=== PATIENT | female | born 1955 | race Caucasian/White ===

== ENCOUNTER → 2016-09-22 | Outpatient (CLI) | payer OTHER ==
[~2016-09-22] MED LIST: CLOP1TAB15 PO; DULO60CA44 PO; LORA-741 PO; LPR100 PO; METF-384 PO; ROSU40TA PO; SITA1TAB27 PO; TRIATAB3 PO; WARF6TAB5 PO
[2016-09-22 09:57] LABS: BLOOD UREA NITROGEN 17 mg/dl (7-18); BUN/CREATININE RATIO 13.4 (10-20); CALCIUM 9.3 mg/dl (8.5-10.1); CARBON DIOXIDE 26 mmol/L (21-32); CHLORIDE 107 mmol/L (98-107); CHOLESTEROL 117 mg/dl (0-200); GLUCOSE 169 mg/dl (70-99); POTASSIUM 4.7 mmol/L (3.5-5.1); SODIUM 142 mmol/L (136-145)
[2016-09-22 10:01] LABS: CHOLESTEROL/HDL RATIO 4.3; HDL CHOLESTEROL 27 mg/dl; TRIGLYCERIDES 307 mg/dl (0-150); VERY LOW DENSITY LIPOPROT CALC 61 mg/dl
[2016-09-22 10:08] LABS: ESTIMATED AVERAGE GLUCOSE 186 mg/dl; HA1C FLAG Normal (Normal)
== END | disposition home or self-care (01) ==
LOC: C.LAB 07:52
PROVIDERS: ATTEND Internal Medicine
DX: E11.65 Type 2 diabetes mellitus with hyperglycemia (principal); I10 Essential (primary) hypertension; E78.5 Hyperlipidemia, unspecified; I25.10 Atherosclerotic heart disease of native coronary artery without angina pectoris

== ENCOUNTER → 2017-01-26 | Outpatient (CLI) | payer OTHER ==
[2017-01-26 09:50] LABS: BLOOD UREA NITROGEN 33 mg/dl (7-18); BUN/CREATININE RATIO 19.3 (10-20); CALCIUM 8.8 mg/dl (8.5-10.1); CARBON DIOXIDE 27 mmol/L (21-32); CHLORIDE 104 mmol/L (98-107); GLUCOSE 143 mg/dl (70-99); POTASSIUM 4.7 mmol/L (3.5-5.1); SODIUM 137 mmol/L (136-145)
[2017-01-26 09:54] LABS: CHOLESTEROL 134 mg/dl (0-200); CHOLESTEROL/HDL RATIO 4.6; HDL CHOLESTEROL 29 mg/dl; TRIGLYCERIDES 358 mg/dl (0-150); VERY LOW DENSITY LIPOPROT CALC 72 mg/dl
[2017-01-26 09:57] LABS: ESTIMATED AVERAGE GLUCOSE 169 mg/dl; HA1C FLAG Normal (Normal)
== END | disposition home or self-care (01) ==
LOC: C.LAB 08:06
PROVIDERS: ATTEND Internal Medicine
DX: I10 Essential (primary) hypertension (principal); E78.5 Hyperlipidemia, unspecified; E11.65 Type 2 diabetes mellitus with hyperglycemia

== ENCOUNTER 2018-11-19 15:27 | Inpatient (IN) ==
[2018-11-19] MEDS ORDERED: ALBUT/IPRATROP 3MG/0.5MG NEB 3 ML VIAL NEB STA (15:47)
[2018-11-19 16:01] LABS: Base Excess VBG 2.8 mEq/L; HCO3 VBG 28 mmol/L; PCO2 VBG 45 mmHg (38-50); PO2 VBG 25 mmHg; pH VBG 7.41 (7.36-7.41)
[2018-11-19 16:02] LABS: Oxygen Saturation VBG < 60.0 %
[2018-11-19 16:07] LABS: Basophils # (auto) 0.03 K/uL (0-0.2); Basophils % (auto) 0.3 %; Eosinophils # (auto) 0.02 K/uL (0-0.5); Eosinophils % (auto) 0.2 %; Hematocrit (blood only) 44.5 % (37-47); Hemoglobin 15.2 g/dL (12.0-16.0); Immature Granulocytes # (auto) 0.05 K/uL (0.00-0.02); Immature Granulocytes % (auto) 0.5 %; Lymphocytes # (auto) 1.66 K/uL (1.2-3.4); Lymphocytes % (auto) 15.5 %; Mean Corpuscular Hgb Conc 34.2 g/dL (32-36); Mean Corpuscular Volume 88.1 fL (80-100); Monocytes # (auto) 1.89 K/uL (0.11-0.59); Monocytes % (auto) 17.6 %; Neutrophils # (auto) 7.09 K/uL (1.4-6.5); Neutrophils % (auto) 65.9 %; Platelet Count 137 K/uL (130-400); RDW Coefficient of Variation 14.8 % (11.5-14.5); RDW Standard Deviation 47.2 fL (36.4-46.3); Red Blood Count 5.05 M/uL (4.2-5.4); White Blood Count 10.74 K/uL (4.8-10.8)
[2018-11-19 16:16] LABS: INR 1.1 (0.9-1.1)
--- NOTE | 2018-11-19 16:20 | XRay Report ---
XR chest 1V portable HISTORY: Atypical Chest Pain COMPARISON: Chest 05/16/2018. FINDINGS: Left-sided favor pacemaker. The heart is normal in size. No pleural effusions. No pneumotho rax. Mild interstitial and vascular thickening suggestive of mild congestive change. This remains unc hanged. IMPRESSION: No change in the mild pulmonary vascular congestion without overt edema. Electronically signed by: Dash Nolasco M.D. 11/19/2018 4:19 PM
[2018-11-19] MEDS ORDERED: ONDANSETRON INJ 2 MG/ML 2 ML VIAL IV STA (16:22)
[2018-11-19 16:26] LABS: Albumin Level 3.3 gm/dl (3.4-5.0); BUN Creatinine Ratio 10.7 (10-20); Calcium 8.8 mg/dl (8.5-10.1); Creatinine Clr Calc Pharmacy 50.9 ml/min; Est GFR (African American) 53.5; Est GFR (Non-African American) 46.2; Magnesium 1.5 mg/dl (1.8-2.4); Potassium 3.6 mmol/L (3.5-5.1)
[2018-11-19 16:31] LABS: Albumin Globulin Ratio 0.8 (0.9-2); Bilirubin,Total 0.6 mg/dl (0.2-1); Phosphorus 2.7 mg/dl (2.5-4.9); Total Protein 7.3 gm/dl (6.4-8.2); Troponin I 0.017 ng/ml (0-0.045)
[2018-11-19] MEDS ORDERED: ALBUT/IPRATROP 3MG/0.5MG NEB 3 ML VIAL NEB ONE (16:58)
[2018-11-19] MEDS ORDERED: SODIUM CHLORIDE 0.9% 1000ML 500 ML IV ONE (16:58)
[2018-11-19] MEDS ORDERED: methylPREDNISolone 125 MG/2 ML VIAL IV STA (16:58)
[2018-11-19] MEDS ORDERED: DOXYCYCLINE HYCLATE 100 MG CAP PO STA (16:58)
[2018-11-19] MEDS: MAGNESIUM SULFATE / D5W 1 GM/100 ML BAG IV SCH ×2 (17:03→17:09)
--- NOTE | 2018-11-19 17:12 | History & Physical Report ---
Date of Service November 19, 2018 Assessment & Plan (1) COPD (chronic obstructive pulmonary disease): - Admit to med surg with tele - Solu-Medrol 60 mg Q8H, Xopenex nebs QID and Q2H prn, supplemental O2, Mucinex, sputum culture - Continue home spiriva inh 2 puff daily - No leukocytosis, afebrile - Patient follows with PCP Dr. Clayton as an outpatient, does not follow formally with pulm. (2) HTN (hypertension): - Patient did not receive morning medications: continue metoprolol tartrate 100 mg BID, Imdur 30 mg QAM, amlodipine 10 mg QAM - will order metoprolol and amlodipine to be given now. - IV hydralazine prn. Consider switch to home dosing of 10 mg PO TID tomorrow. (3) HLD (hyperlipidemia): - Cont rosuvastatin (4) Hx of non-ST elevation myocardial infarction (NSTEMI): (5) PAD (peripheral artery disease): (6) Paroxysmal SVT (supraventricular tachycardia): - hx of such, appears to have elevated HR secondary to shortness of breath. Monitor with tele. (7) SSS (sick sinus syndrome): (8) S/P cardiac pacemaker procedure: - medtronic dual chamber pacemaker last interrogated in Apr 2018 with prjected life of 8.5 yrs. (9) Systolic and diastolic CHF, chronic: - Follow on tele - Appears euvolemic, follows with Dr. Cedeno for pacemaker and Rhett Garduno PA-C as an outpt - Continue asa 81 mg daily, amlodipine 10 mg PO QAM, hydralazine 10 mg TID, Imdur 30 mg daily, Lasix 40 mg daily, ranexa 500 mg BID, - Continue plavix 75 mg PO QAM (10) DM II (diabetes mellitus, type II), controlled: - ISS wtih accuchecks achs - Hold metformin for now, continue januvia 100 mg QAM. - A1C with am labs (11) Hypomagnesemia: - Mag 1.5 upon admission, replaced with 2g IV, follow with am labs (12) DVT prophylaxis: teds, scds, heparin subq History of Present Illness Chief Complaint: Shortness of breath Primary Care Provider: Efra Clayton MD This is a 62 yo F with PMHx of CAD, PAD s/p multiple peripheral stents, aortobifemoral bypass, sick sinus syndrome s/p dual-chamber pacemaker in 2014, NSTEMI in 2017, combined diastolic and systolic CHF, HTN, HLD, DM type II, COPD, chronic tobacco use, osteoarthritis, obesity who presents for increased shortness of breath times 1 day. Patient notes she recently had an upper respiratory infection over the weekend and this morning shortness of breath increased where she was unable to participate in basic ADLs. She notes that this morning she was experiencing some dizziness. Patient has been vaping 1 cartridge per day which is much less than typical, but also alternates this with cigarette smoking. She denies chest heaviness, chest pain, flutter, palpitations, fever, chills, lightheadedness. Patient does not have a home nebulizer. Patient did not take any of her morning medications. Allergies Allergy/AdvReac Type Severity Reaction Status Date / Time No Known Allergies Allergy Unknown Verified 11/19/18 08:42 Home Medications Home Medications Medication Instructions Recorded Confirmed Type Januvia 100 mg PO QAM 05/13/18 11/19/18 History clopidogrel [Plavix] 75 mg PO QAM 05/13/18 11/19/18 History duloxetine 60 mg PO QAM 05/13/18 11/19/18 History lorazepam 0.5 mg PO TID PRN 05/13/18 11/19/18 History metformin 1,000 mg PO BID 05/13/18 11/19/18 History metoprolol tartrate 100 mg PO BID 05/13/18 11/19/18 History rosuvastatin 40 mg PO QAM 05/13/18 11/19/18 History Ranexa 500 mg PO BID #60 tab 05/17/18 11/19/18 Rx amlodipine 10 mg PO QAM #60 tab 05/17/18 11/19/18 Rx hydralazine 10 mg PO TID #90 tab 05/17/18 11/19/18 Rx isosorbide mononitrate 30 mg PO QAM #30 tab 05/17/18 11/19/18 Rx pramipexole 0.25 mg PO HS #30 tab 05/17/18 11/19/18 Rx Medical Marijuana 1 dose INHALATION DAILY PRN 10/11/18 11/19/18 History Xarelto 20 mg PO QAM 10/11/18 11/19/18 History gabapentin 400 mg PO QID 10/11/18 11/19/18 History baclofen 10 mg PO HS 11/19/18 11/19/18 History furosemide [Lasix] 40 mg PO DAILY 11/19/18 11/19/18 History meloxicam [Mobic] 15 mg PO DAILY 11/19/18 11/19/18 History potassium chloride 10 meq PO BID 11/19/18 11/19/18 History Past Med/Surg History Medical History Systolic and diastolic CHF, chronic SSS (sick sinus syndrome) Paroxysmal SVT (supraventricular tachycardia) DM II (diabetes mellitus, type II), controlled PAD (peripheral artery disease) Hx of non-ST elevation myocardial infarction (NSTEMI) HLD (hyperlipidemia) HTN (hypertension) COPD (chronic obstructive pulmonary disease) Hypertension (Acute) Anxiety Bulging discs Chronic back pain Chronic obstructive pulmonary disease Degenerative disc disease Depression Diabetes mellitus, type 2 NIDDM Diabetic nephropathy Hyperlipidemia Incisional hernia Myocardial Infarction 05/2018 - [facility] Pacemaker 05/2015 - Sick sinus syndrome - Last checked 08/2018 - Medtronic Peripheral vascular disease Rheumatoid arthritis Sick sinus syndrome Spinal stenosis Surgical History S/P cardiac pacemaker procedure History of cardiac cath 05/2018 - ME - NO STENTS/ANGIOPLASTY - COLLATERAL CIRCULATION - FOLLOWS W/ DR. ERWIN History of cholecystectomy History of intravascular stent placement Multiple stents in bilateral legs, left subclavian, left aortic mesenteric bypass, left carotid endarterectomy History of oral surgery History of tonsillectomy History of tooth extraction Social History Preferred Language: Azeri Communication Ability: Effective Beliefs That Will Affect Care: None Current Living Situation: Family Feels Safe at Home: Yes Smoking Status: Current some day smoker Hx Alcohol Use: Yes Review of Systems Constitutional: No fever, sweats or chills Eyes: No diplopia, no worsening or blurred vision ENT: normal hearing, no trouble swallowing Respiratory: As per HPI. Cardiovascular: No chest pain, tightness or palpitations Abdomen: No pain, nausea, vomiting, diarrhea or constipation Musculoskeletal: No joint pain, calf pain, swelling Neurologic: No weakness, numbness/tingling, or balance problems Psychiatric: No anxiety or depression Skin: No rash or itch Physical Exam Vital Signs (Past 24 Hours): Last Vital Signs Temp 36.9 C 11/19/18 15:31 Pulse 110 H 11/19/18 16:34 Resp 22 11/19/18 16:34 BP 162/108 H 11/19/18 16:34 Pulse Ox 93 11/19/18 16:36 Physical Exam: General: awake, alert, no apparent distress,+ obese, Head: Normocephalic, atraumatic ENT: PERRL, EOMI, mucous membranes moist Chest: Currently getting nebulizer treatment, + tight breath sounds throughout, + faint exp wheeze Cardiac: Regular rhythm, +tachycardia with HR in 110s, no murmur, no JVD, normal peripheral pulses, good capillary refill Abdominal: NABS x 4 quadrants, soft, nontender to palpation, no rebound, guarding or tenderness Extremities: Normal inspection, no peripheral edema or erythema, calfs nontender to palpation Psych: Normal mood and affect Neuro: AAO x 3, no motor deficits, speech is clear Constitutional: WD/WN, vitals as above Eyes: normal visual lemus by confrontation and + anicteric sclerae Neck: normal visual inspection and trachea midline Respiratory: normal respiratory effort, lungs clear to auscultation no respiratory distress Auscultation: no diminished lung sounds, no crackles and no wheezes Cardiovascular: Rate/Rhythm: regular rate and regular rhythm Gastrointestinal (Abdomen): Inspection/Auscultation: abdomen not distended Percussion/Palpation: abdomen soft; abdomen nontender Musculoskeletal: Head/Neck/Chest: normocephalic and head atraumatic Trace LE edema, + pedal pulses Skin: no rashes, warm and dry Neurologic: awake; not confused Speech / Cognition: normal speech Psychiatric: A+Ox3, euthymic affect Lymphatic: Exam as done by Radhika Diehl DO Results & Data Diagnostic Findings XR chest 1V portable HISTORY: Atypical Chest Pain COMPARISON: Chest 05/16/2018. FINDINGS: Left-sided favor pacemaker. The heart is normal in size. No pleural effusions. No pneumothorax. Mild interstitial and vascular thickening suggestive of mild congestive change. This remains unchanged. IMPRESSION: No change in the mild pulmonary vascular congestion without overt edema. Code Status & VTE Plan Code Status DNR Supervising Physician Co-Signing Physician Notes Pt seen and examined by me. Denies chest pain or recurrence of SOB. She was put back on O2 for desats however. Pt does not use O2 at baseline. She states that she feels her breathing is at baseline otherwise. No further wheezing. Tolerating PO without issue. Agree with HPI/ROS as noted by PA See above for my exam in PE section Agree with plan as outlined above COPD exacerbation, improving on steroids, nebs Holding further abx given CXR neg for PNA Wean O2 as able
[2018-11-19 17:15] LABS: Influenza A virus by PCR Neg for Influ A (Neg); Influenza B virus by PCR Neg for Influ B (Neg)
[2018-11-19] MEDS ORDERED: HydrALAZINE HCL 20 MG/ML VIAL IV PRN (18:06)
[2018-11-19] MEDS ORDERED: METOPROLOL TARTRATE 50 MG TAB ONE (18:12)
[2018-11-19] MEDS: AMLODIPINE BESYLATE 5 MG TAB PO SCH (18:14)
[2018-11-19] MEDS: METOPROLOL TARTRATE 100 MG TAB PO SCH ×2 (20:02→23:08)
--- NOTE | 2018-11-19 21:20 | Emergency Department Note ---
Entered by Vi Davidson acting as a scribe for Flip Castano MD History of Present Illness General Chief complaint: Shortness of Breath/Dyspnea Stated complaint: SOB, CONGESTION, RAPID HEART RATE Time Seen by Provider: 11/19/18 15:39 Source: patient Limitations: no limitations History of Present Illness Provider complaint: shortness of breath Onset (ago): day(s) 1 Location: chest Maximum Pain Intensity: 5 Associated symptoms: + denies other symptoms (diarrhea, urinary symptoms), + cough, + nausea/vomiting and + other (+chest tightness, +dizziness) Treatments prior to arrival: none The patient is a 62 year old female who presents to the Emergency Room with complaints of shortness of breath that began 1 day prior to arrival. The patient states that she has cough, chest tightness, nausea, vomiting, and dizziness. The patient states that she didn't eat or drink fluids today but states that she has been eating and drinking normally over the past couple of days. The patient denies diarrhea or urinary symptoms. The patient denies a history of COPD or asthma. The patient states that she has a history of a cholecystectomy and a heart attack. The patient states that her heart attack was in May 2018. The patient states that she is a current every day smoker. Home Medications Home Medications Medication Instructions Recorded Confirmed Type Januvia 100 mg PO QAM 05/13/18 11/19/18 History clopidogrel [Plavix] 75 mg PO QAM 05/13/18 11/19/18 History duloxetine 60 mg PO QAM 05/13/18 11/19/18 History lorazepam 0.5 mg PO TID PRN 05/13/18 11/19/18 History metformin 1,000 mg PO BID 05/13/18 11/19/18 History metoprolol tartrate 100 mg PO BID 05/13/18 11/19/18 History rosuvastatin 40 mg PO QAM 05/13/18 11/19/18 History Ranexa 500 mg PO BID #60 tab 05/17/18 11/19/18 Rx amlodipine 10 mg PO QAM #60 tab 05/17/18 11/19/18 Rx hydralazine 10 mg PO TID #90 tab 05/17/18 11/19/18 Rx isosorbide mononitrate 30 mg PO QAM #30 tab 05/17/18 11/19/18 Rx pramipexole 0.25 mg PO HS #30 tab 05/17/18 11/19/18 Rx Medical Marijuana 1 dose INHALATION DAILY PRN 10/11/18 11/19/18 History Xarelto 20 mg PO QAM 10/11/18 11/19/18 History gabapentin 400 mg PO QID 10/11/18 11/19/18 History baclofen 10 mg PO HS 11/19/18 11/19/18 History furosemide [Lasix] 40 mg PO DAILY 11/19/18 11/19/18 History meloxicam [Mobic] 15 mg PO DAILY 11/19/18 11/19/18 History potassium chloride 10 meq PO BID 11/19/18 11/19/18 History Allergies Allergy/AdvReac Type Severity Reaction Status Date / Time No Known Allergies Allergy Unknown Verified 11/19/18 08:42 Past Med/Surg History Medical History Systolic and diastolic CHF, chronic SSS (sick sinus syndrome) Paroxysmal SVT (supraventricular tachycardia) DM II (diabetes mellitus, type II), controlled PAD (peripheral artery disease) Hx of non-ST elevation myocardial infarction (NSTEMI) HLD (hyperlipidemia) HTN (hypertension) COPD (chronic obstructive pulmonary disease) Hypertension (Acute) Anxiety Bulging discs Chronic back pain Chronic obstructive pulmonary disease Degenerative disc disease Depression Diabetes mellitus, type 2 NIDDM Diabetic nephropathy Hyperlipidemia Incisional hernia Myocardial Infarction 05/2018 - [facility] Pacemaker 05/2015 - Sick sinus syndrome - Last checked 08/2018 - [employer] Peripheral vascular disease Rheumatoid arthritis Sick sinus syndrome Spinal stenosis Surgical History S/P cardiac pacemaker procedure History of cardiac cath 05/2018 - [place] - NO STENTS/ANGIOPLASTY - COLLATERAL CIRCULATION - FOLLOWS W/ DR. ERWIN History of cholecystectomy History of intravascular stent placement Multiple stents in bilateral legs, left subclavian, left aortic mesenteric bypass, left carotid endarterectomy History of oral surgery History of tonsillectomy History of tooth extraction Family History Mother , Heart Disease Ruptured Appendix No problems noted. Father , with Vascular and Colon Can No problems noted. Sister No problems noted. Grandfather (Maternal) Family history of diabetes mellitus Social History Preferred Language: Faroese Communication Ability: Effective Beliefs That Will Affect Care: None Current Living Situation: Family Other Information That Helps Us Care for You: No Feels Safe at Home: Yes Smoking Status: Current every day smoker Hx Alcohol Use: Yes Hx Substance Use: No Review of Systems See HPI for pertinent positives & negatives. and A total of 10 systems reviewed and were otherwise negative Physical Exam Vital Signs Vital Signs - 24 hr 11/20/18 03:52 11/20/18 07:18 11/20/18 08:00 Temperature 36.7 C Temperature Source Oral Pulse Rate [Right Finger] 81 89 Pulse Rhythm [Right Finger] Pulse Strength [Right Finger] Respiratory Rate 20 18 Respiratory Effort / Characteristics Non-Labored Spontaneous Non-Labored Respiratory Depth Normal Respiratory Pattern Regular Blood Pressure [Right Arm] 143/83 H Blood Pressure Mean [Right Arm] 103 Blood Pressure Position [Right Arm] Lying Pulse Oximetry 91 91 Oxygen Delivery Method Nasal Cannula Room Air Room Air Oxygen Flow Rate 2 11/20/18 08:16 11/20/18 11:39 11/20/18 13:52 Temperature 36.3 C L 36.6 C Temperature Source Oral Oral Pulse Rate [Right Finger] 87 77 89 Pulse Rhythm [Right Finger] Pulse Strength [Right Finger] Respiratory Rate 18 20 18 Respiratory Effort / Characteristics Non-Labored Spontaneous Respiratory Depth Respiratory Pattern Blood Pressure [Right Arm] 169/87 H 139/77 Blood Pressure Mean [Right Arm] 114 97 Blood Pressure Position [Right Arm] Lying Lying Pulse Oximetry 92 91 90 Oxygen Delivery Method Room Air Room Air Room Air Oxygen Flow Rate 11/20/18 16:00 11/20/18 19:21 11/20/18 19:45 Temperature 36.9 C Temperature Source Oral Pulse Rate [Right Finger] 85 80 Pulse Rhythm [Right Finger] Pulse Strength [Right Finger] Respiratory Rate 18 16 Respiratory Effort / Characteristics Non-Labored Spontaneous Non-Labored Spontaneous Respiratory Depth Normal Respiratory Pattern Regular Blood Pressure [Right Arm] 127/70 Blood Pressure Mean [Right Arm] 89 Blood Pressure Position [Right Arm] Sitting Pulse Oximetry 92 90 Oxygen Delivery Method Room Air Room Air Room Air Oxygen Flow Rate 11/20/18 21:30 11/20/18 22:29 11/20/18 22:59 Temperature 36.4 C L 36.6 C Temperature Source Oral Oral Pulse Rate [Right Finger] 67 82 88 Pulse Rhythm [Right Finger] Regular Pulse Strength [Right Finger] Normal Respiratory Rate 18 18 Respiratory Effort / Characteristics Non-Labored Spontaneous Non-Labored Respiratory Depth Normal Normal Respiratory Pattern Regular Regular Blood Pressure [Right Arm] 124/69 194/98 H 164/79 H Blood Pressure Mean [Right Arm] 87 130 107 Blood Pressure Position [Right Arm] Lying Pulse Oximetry 91 91 Oxygen Delivery Method Nasal Cannula Room Air Oxygen Flow Rate 2 11/21/18 00:18 Temperature Temperature Source Pulse Rate [Right Finger] Pulse Rhythm [Right Finger] Pulse Strength [Right Finger] Respiratory Rate Respiratory Effort / Characteristics Non-Labored Spontaneous Respiratory Depth Normal Respiratory Pattern Regular Blood Pressure [Right Arm] Blood Pressure Mean [Right Arm] Blood Pressure Position [Right Arm] Pulse Oximetry Oxygen Delivery Method Nasal Cannula Oxygen Flow Rate 2 GENERAL: Awake, alert, uncomfortable-appearing, dyspneic. HENT: Normocephalic, atraumatic. Oropharynx with dry mucous membranes and otherwise unremarkable. EYES: Normal conjunctiva. Sclera non-icteric. NECK: Supple. No nuchal rigidity. FROM. No JVD. RESPIRATORY: Scattered wheezing and rhonchi. CARDIAC: Regular rate, normal rhythm. Extremities warm and well perfused. Pulses equal. ABDOMEN: Soft, non-distended. No tenderness to palpation. No rebound or g uarding. No masses. RECTAL: Deferred. MUSCULOSKELETAL: Chest examination reveals no tenderness. The back is symmetrical on inspection without obvious abnormality. There is no CVA tenderness to palpation. No joint edema. LOWER EXTREMITIES: Calves are equal size bilaterally and non-tender. No edema. N o discoloration. NEURO: Normal sensorium. No sensory or motor deficits noted. SKIN: No rash or jaundice noted. Course 1540: Past medical records reviewed. The patient was evaluated in room B1, and a complete history and physical examination were performed. 1640: I checked on and updated the patient on her results. 1701: I discussed the patient's case with Radhika Diehl [facility] Hospitalist who will evaluate the patient for further hospitalization. Consultations Consultation #1: Radhika Nj [facility] Hospitalist Time: 17:01 Administered Medications Acetaminophen (Tylenol) 650 mg PO Q4H PRN PRN Reason: Moderate Pain Stop: 12/19/18 23:26 Last Admin: 11/20/18 21:30 Dose: 650 mg Documented by: [id number] Amlodipine Besylate (Norvasc) 10 mg PO QAM [facility] Stop: 12/19/18 18:05 Last Admin: 11/20/18 09:00 Dose: 10 mg Documented by: [id number] Admin: 11/19/18 18:14 Dose: 10 mg Documented by: [id number] Baclofen (Lioresal) 10 mg PO HS [facility] Stop: 12/20/18 20:59 Last Admin: 11/20/18 21:22 Dose: 10 mg Documented by: [id number] [facility] [place] Stop: 12/20/18 08:59 Last Admin: 11/20/18 08:01 Dose: 75 mg Documented by: [id number] Duloxetine HCl (Cymbalta) [facility] [place] Stop: 12/20/18 08:59 Last Admin: 11/20/18 08:01 Dose: 60 mg Documented by: [id number] Furosemide (Lasix) 40 mg PO DAILY [facility] Stop: 12/20/18 08:59 Last Admin: 11/20/18 08:01 Dose: 40 mg Documented by: [id number] Gabapentin (Neurontin) 400 mg PO TID [facility] Stop: 12/19/18 23:26 Last Admin: 11/20/18 21:23 Dose: 400 mg Documented by: [id number] Admin: 11/20/18 15:44 Dose: 400 mg Documented by: [id number] Admin: 11/20/18 08:01 Dose: 400 mg Documented by: [id number] Admin: 11/20/18 00:19 Dose: 400 mg Documented by: [id number] Guaifenesin (Robitussin Sugar Free Syrup) 100 mg PO Q6H PRN PRN Reason: Cough Stop: 12/19/18 23:47 Last Admin: 11/20/18 00:20 Dose: 100 mg Documented by: [id number] Heparin Sodium (Porcine) (Heparin Sodium (Porcine)) 5,000 units SQ Q12 [facility] Stop: 12/19/18 23:26 Last Admin: 11/20/18 20:56 Dose: Not Given Documented by: [id number] Admin: 11/20/18 07:56 Dose: Not Given Documented by: [id number] Admin: 11/20/18 00:18 Dose: Not Given Documented by: [id number] Insulin Aspart (Novolog Flexpen) 0 units SC ACHS [facility]; Protocol Stop: 12/20/18 20:59 Last Admin: 11/20/18 21:23 Dose: 10 units Documented by: [id number] Cosigned by: [id number] Insulin Aspart (Novolog Flexpen) 0 units SC 0000,0400 [facility]; Protocol Stop: 11/21/18 04:01 Last Admin: 11/21/18 00:35 Dose: Not Given Documented by: [id number] Cosigned by: [id number] Isosorbide Mononitrate (Imdur Extended Rel) 30 mg PO QAM [facility] Stop: 12/20/18 08:59 Last Admin: 11/20/18 08:01 Dose: 30 mg Documented by: [id number] Levalbuterol HCl (Xopenex 1.25mg/0.5ml Neb) 1.25 mg NEB Q6R [facility] Stop: 12/20/18 01:59 Last Admin: 11/21/18 01:43 Dose: Not Given Documented by: [id number] Admin: 11/20/18 19:18 Dose: 1.25 mg Documented by: [id number] Admin: 11/20/18 13:51 Dose: 1.25 mg Documented by: [id number] Admin: 11/20/18 07:17 Dose: 1.25 mg Documented by: [id number] Admin: 11/20/18 01:50 Dose: 1.25 mg Documented by: [id number] Lorazepam (Ativan) 0.5 mg PO TID PRN PRN Reason: Anxiety Stop: 12/19/18 23:47 Last Admin: 11/20/18 00:23 Dose: 0.5 mg Documented by: [id number] Metoprolol Tartrate (Lopressor) 100 mg PO BID [facility] Stop: 12/19/18 18:05 Last Admin: 11/20/18 21:26 Dose: 100 mg Documented by: [id number] Admin: 11/20/18 08:01 Dose: 100 mg Documented by: [id number] Admin: 11/19/18 23:08 Dose: 100 mg Documented by: [id number] Admin: 11/19/18 20:02 Dose: Not Given Documented by: [id number] Pramipexole Dihydrochloride (Mirapex) 0.25 mg PO HS [facility] Stop: 12/19/18 23:26 Last Admin: 11/20/18 21:23 Dose: 0.25 mg Documented by: [id number] Admin: 11/20/18 00:19 Dose: 0.25 mg Documented by: [id number] Ranolazine (Ranexa) 500 mg PO BID [facility] Stop: 12/19/18 23:26 Last Admin: 11/20/18 21:25 Dose: 500 mg Documented by: [id number] Admin: 11/20/18 08:01 Dose: 500 mg Documented by: [id number] Admin: 11/20/18 00:19 Dose: 500 mg Documented by: [id number] Rosuvastatin Calcium (Crestor) [facility] [place] Stop: 12/20/18 08:59 Last Admin: 11/20/18 08:02 Dose: 40 mg Documented by: [id number] Sitagliptin Phosphate (Januvia) [facility] [place] Stop: 12/20/18 08:59 Last Admin: 11/20/18 08:01 Dose: 100 mg Documented by: [id number] Discontinued Medications Albuterol (Duoneb) 3 ml NEB NOW STA Stop: 11/19/18 15:48 Last Admin: 11/19/18 16:00 Dose: 3 ml Documented by: [id number] Albuterol (Duoneb) 12 ml NEB ONE ONE Stop: 11/19/18 16:59 Last Admin: 11/19/18 17:24 Dose: 12 ml Documented by: [id number] Doxycycline Hyclate (Vibramycin) 100 mg PO NOW STA Stop: 11/19/18 16:59 Last Admin: 11/19/18 17:07 Dose: 100 mg Documented by: [id number] Magnesium Sulfate/Dextrose (Magnesium Sulfate / D5w) 1 gm in 100 mls @ 100 mls/hr IV Q1H [facility] Stop: 11/19/18 18:44 Last Infusion: 11/19/18 17:20 Dose: 0 mls/hr Documented by: [id number] Admin: 11/19/18 17:09 Dose: 100 mls/hr Documented by: [id number] Infusion: 11/19/18 17:09 Dose: 100 mls/hr Documented by: [id number] Admin: 11/19/18 17:03 Dose: 100 mls/hr Documented by: [id number] Sodium Chloride (Nss 1000ml) 500 mls @ 999 mls/hr IV .Q31M ONE Stop: 11/19/18 17:28 Last Infusion: 11/19/18 18:51 Dose: 0 mls/hr Documented by: [id number] Admin: 11/19/18 17:07 Dose: 999 mls/hr Documented by: [id number] Methylprednisolone 60 mg/ (Syringe) 0.96 mls @ 1.5 mls/min IV Q8H [facility] Stop: 12/20/18 01:59 Last Admin: 11/20/18 09:00 Dose: 1.5 mls/min Documented by: [id number] Admin: 11/20/18 02:01 Dose: 1.5 mls/min Documented by: [id number] Insulin Human Regular 9 units/ (Syringe) 9 mls @ 30 mls/min IV TODAY@1815 ONE Stop: 11/20/18 18:16 Last Admin: 11/20/18 18:26 Dose: 30 mls/min Documented by: [id number] Cosigned by: [id number] Insulin Aspart (Novolog Flexpen) 0 units SC ACHS [facility] Stop: 12/20/18 00:00 Last Admin: 11/20/18 17:27 Dose: 12 units Documented by: [id number] Cosigned by: [id number] Admin: 11/20/18 12:44 Dose: 9 units Documented by: [id number] Cosigned by: [id number] Admin: 11/20/18 08:02 Dose: 8 units Documented by: [id number] Cosigned by: [id number] Admin: 11/20/18 00:15 Dose: 6 units Documented by: [id number] Cosigned by: [id number] Insulin Glargine (Lantus Solostar Pen) 20 units SC PM [facility]; Protocol Stop: 11/20/18 21:01 Last Admin: 11/20/18 21:20 Dose: 20 units Documented by: [id number] Cosigned by: [id number] Methylprednisolone (Solumedrol) 125 mg IV NOW STA Stop: 11/19/18 16:59 Last Admin: 11/19/18 17:15 Dose: 125 mg Documented by: [id number] Metoprolol Tartrate (Lopressor) Confirm Administered Dose 100 mg .ROUTE .STK-MED ONE Stop: 11/19/18 18:13 Last Admin: 11/19/18 18:14 Dose: 100 mg Documented by: [id number] Ondansetron HCl (Zofran) 4 mg IV NOW STA Stop: 11/19/18 16:23 Last Admin: 11/19/18 16:27 Dose: 4 mg Documented by: [id number] Medical Decision Making Differential Diagnosis Differential diagnoses includes but is not limited to pneumonia, bronchitis, COPD/Asthma exacerbation, pneumothorax, pulmonary embolism, congestive heart failure, acute coronary syndrome. Medical Records Attestation: I reviewed the patient's medical records. Home Medications Current Medication List: was personally reviewed by me Laboratory Data Attestation: I reviewed the patient's lab results. Result diagrams: 11/20/18 07:17 11/20/18 07:17 Lab Results 11/19/18 11/19/18 11/19/18 Range/Units 15:51 15:51 15:51 WBC 10.74 (4.8-10.8) K/uL RBC 5.05 (4.2-5.4) M/uL Hgb 15.2 (12.0-16.0) g/dL Hct 44.5 (37-47) % MCV 88.1 (80-100) fL MCH 30.1 (25-34) pg MCHC 34.2 (32-36) g/dL RDW Std Deviation 47.2 H (36.4-46.3) fL RDW Coeff of Tosin 14.8 H (11.5-14.5) % Plt Count 137 (130-400) K/uL MPV 13.0 H (7.4-10.4) fL Immature Gran % (Auto) 0.5 % Neut % (Auto) 65.9 % Lymph % (Auto) 15.5 % Vigo % (Auto) 17.6 % Eos % (Auto) 0.2 % Baso % (Auto) 0.3 % Immature Gran # (Auto) 0.05 H (0.00-0.02) K/uL Neut # (Auto) 7.09 H (1.4-6.5) K/uL Lymph # (Auto) 1.66 (1.2-3.4) K/uL Vigo # (Auto) 1.89 H (0.11-0.59) K/uL Eos # (Auto) 0.02 (0-0.5) K/uL Baso # (Auto) 0.03 (0-0.2) K/uL Platelet Estimate (Normal) PT 11.0 (9.0-12.0) Seconds INR 1.1 (0.9-1.1) VBG pH (7.36-7.41) VBG pCO2 (38-50) mmHg VBG pO2 mmHg VBG HCO3 mmol/L VBG O2 Saturation % VBG Base Excess mEq/L Barometric Pressure mm/Hg Sodium 132 L (136-145) mmol/L Potassium 3.6 (3.5-5.1) mmol/L Chloride 98 (98-107) mmol/L Carbon Dioxide 27 (21-32) mmol/L Anion Gap 7.0 (3-11) BUN 13 (7-18) mg/dl Creatinine 1.24 H (0.6-1.2) mg/dl Est Cr Clr Drug Dosing 50.9 ml/min Est GFR ( Amer) 53.5 Est GFR (Non-Af Amer) 46.2 BUN/Creatinine Ratio 10.7 (10-20) Glucose 194 H (70-99) mg/dl POC Glucose (70-99) Estimat Average Glucose mg/dl Hemoglobin A1c (4.5-5.6) % Calcium 8.8 (8.5-10.1) mg/dl Phosphorus 2.7 (2.5-4.9) mg/dl Magnesium 1.5 L (1.8-2.4) mg/dl Total Bilirubin 0.6 (0.2-1) mg/dl AST 22 (15-37) U/L ALT 21 (12-78) U/L Alkaline Phosphatase 108 (45-117) U/L Troponin I 0.017 (0-0.045) ng/ml NT-Pro-B Natriuret Pep 2108 H (0-900) pg/ml Total Protein 7.3 (6.4-8.2) gm/dl Albumin 3.3 L (3.4-5.0) gm/dl Globulin 4.0 (2.5-4.0) gm/dl Albumin/Globulin Ratio 0.8 L (0.9-2) Lipase 71 L (73-393) U/L Influenza Type A (PCR) (Neg) Influenza Type B (PCR) (Neg) 11/19/18 11/19/18 11/19/18 Range/Units 15:51 15:52 15:59 WBC (4.8-10.8) K/uL RBC (4.2-5.4) M/uL Hgb (12.0-16.0) g/dL Hct (37-47) % MCV (80-100) fL MCH (25-34) pg MCHC (32-36) g/dL RDW Std Deviation (36.4-46.3) fL RDW Coeff of Tosin (11.5-14.5) % Plt Count (130-400) K/uL MPV (7.4-10.4) fL Immature Gran % (Auto) % Neut % (Auto) % Lymph % (Auto) % Vigo % (Auto) % Eos % (Auto) % Baso % (Auto) % Immature Gran # (Auto) (0.00-0.02) K/uL Neut # (Auto) (1.4-6.5) K/uL Lymph # (Auto) (1.2-3.4) K/uL Vigo # (Auto) (0.11-0.59) K/uL Eos # (Auto) (0-0.5) K/uL Baso # (Auto) (0-0.2) K/uL Platelet Estimate (Normal) PT (9.0-12.0) Seconds INR (0.9-1.1) VBG pH 7.41 (7.36-7.41) VBG pCO2 45 (38-50) mmHg VBG pO2 25 mmHg VBG HCO3 28 mmol/L VBG O2 Saturation < 60.0 % VBG Base Excess 2.8 mEq/L Barometric Pressure 737.7 mm/Hg Sodium (136-145) mmol/L Potassium (3.5-5.1) mmol/L Chloride (98-107) mmol/L Carbon Dioxide (21-32) mmol/L Anion Gap (3-11) BUN (7-18) mg/dl Creatinine (0.6-1.2) mg/dl Est Cr Clr Drug Dosing ml/min Est GFR ( Amer) Est GFR (Non-Af Amer) BUN/Creatinine Ratio (10-20) Glucose (70-99) mg/dl POC Glucose (70-99) Estimat Average Glucose mg/dl Hemoglobin A1c (4.5-5.6) % Calcium (8.5-10.1) mg/dl Phosphorus (2.5-4.9) mg/dl Magnesium (1.8-2.4) mg/dl Total Bilirubin (0.2-1) mg/dl AST (15-37) U/L ALT (12-78) U/L Alkaline Phosphatase (45-117) U/L Troponin I (0-0.045) ng/ml NT-Pro-B Natriuret Pep Cancelled (0-900) pg/ml Total Protein (6.4-8.2) gm/dl Albumin (3.4-5.0) gm/dl Globulin (2.5-4.0) gm/dl Albumin/Globulin Ratio (0.9-2) Lipase (73-393) U/L Influenza Type A (PCR) Neg for Influ A (Neg) Influenza Type B (PCR) Neg for Influ B (Neg) 11/19/18 11/19/18 11/20/18 Range/Units 21:40 21:41 00:13 WBC (4.8-10.8) K/uL RBC (4.2-5.4) M/uL Hgb (12.0-16.0) g/dL Hct (37-47) % MCV (80-100) fL MCH (25-34) pg MCHC (32-36) g/dL RDW Std Deviation (36.4-46.3) fL RDW Coeff of Tosin (11.5-14.5) % Plt Count (130-400) K/uL MPV (7.4-10.4) fL Immature Gran % (Auto) % Neut % (Auto) % Lymph % (Auto) % Vigo % (Auto) % Eos % (Auto) % Baso % (Auto) % Immature Gran # (Auto) (0.00-0.02) K/uL Neut # (Auto) (1.4-6.5) K/uL Lymph # (Auto) (1.2-3.4) K/uL Vigo # (Auto) (0.11-0.59) K/uL Eos # (Auto) (0-0.5) K/uL Baso # (Auto) (0-0.2) K/uL Platelet Estimate (Normal) PT (9.0-12.0) Seconds INR (0.9-1.1) VBG pH (7.36-7.41) VBG pCO2 (38-50) mmHg VBG pO2 mmHg VBG HCO3 mmol/L VBG O2 Saturation % VBG Base Excess mEq/L Barometric Pressure mm/Hg Sodium (136-145) mmol/L Potassium (3.5-5.1) mmol/L Chloride (98-107) mmol/L Carbon Dioxide (21-32) mmol/L Anion Gap (3-11) BUN (7-18) mg/dl Creatinine (0.6-1.2) mg/dl Est Cr Clr Drug Dosing ml/min Est GFR ( Amer) Est GFR (Non-Af Amer) BUN/Creatinine Ratio (10-20) Glucose (70-99) mg/dl POC Glucose 389 H* 374 H* 361 H* (70-99) Estimat Average Glucose mg/dl Hemoglobin A1c (4.5-5.6) % Calcium (8.5-10.1) mg/dl Phosphorus (2.5-4.9) mg/dl Magnesium (1.8-2.4) mg/dl Total Bilirubin (0.2-1) mg/dl AST (15-37) U/L ALT (12-78) U/L Alkaline Phosphatase (45-117) U/L Troponin I (0-0.045) ng/ml NT-Pro-B Natriuret Pep (0-900) pg/ml Total Protein (6.4-8.2) gm/dl Albumin (3.4-5.0) gm/dl Globulin (2.5-4.0) gm/dl Albumin/Globulin Ratio (0.9-2) Lipase (73-393) U/L Influenza Type A (PCR) (Neg) Influenza Type B (PCR) (Neg) 11/20/18 11/20/18 11/20/18 Range/Units 00:14 07:17 07:17 WBC 7.17 (4.8-10.8) K/uL RBC 4.72 (4.2-5.4) M/uL Hgb 14.1 (12.0-16.0) g/dL Hct 41.0 (37-47) % MCV 86.9 (80-100) fL MCH 29.9 (25-34) pg MCHC 34.4 (32-36) g/dL RDW Std Deviation 46.5 H (36.4-46.3) fL RDW Coeff of Tosin 14.6 H (11.5-14.5) % Plt Count 128 L (130-400) K/uL MPV 13.4 H (7.4-10.4) fL Immature Gran % (Auto) % Neut % (Auto) % Lymph % (Auto) % Vigo % (Auto) % Eos % (Auto) % Baso % (Auto) % Immature Gran # (Auto) (0.00-0.02) K/uL Neut # (Auto) (1.4-6.5) K/uL Lymph # (Auto) (1.2-3.4) K/uL Vigo # (Auto) (0.11-0.59) K/uL Eos # (Auto) (0-0.5) K/uL Baso # (Auto) (0-0.2) K/uL Platelet Estimate Normal (Normal) PT (9.0-12.0) Seconds INR (0.9-1.1) VBG pH (7.36-7.41) VBG pCO2 (38-50) mmHg VBG pO2 mmHg VBG HCO3 mmol/L VBG O2 Saturation % VBG Base Excess mEq/L Barometric Pressure mm/Hg Sodium 131 L (136-145) mmol/L Potassium 4.0 (3.5-5.1) mmol/L Chloride 98 (98-107) mmol/L Carbon Dioxide 23 (21-32) mmol/L Anion Gap 10.0 (3-11) BUN 20 H D (7-18) mg/dl Creatinine 1.17 (0.6-1.2) mg/dl Est Cr Clr Drug Dosing 53.8 ml/min Est GFR ( Amer) 57.4 Est GFR (Non-Af Amer) 49.6 BUN/Creatinine Ratio 16.9 (10-20) Glucose 254 H (70-99) mg/dl POC Glucose 327 H (70-99) Estimat Average Glucose mg/dl Hemoglobin A1c (4.5-5.6) % Calcium 9.1 (8.5-10.1) mg/dl Phosphorus (2.5-4.9) mg/dl Magnesium (1.8-2.4) mg/dl Total Bilirubin 0.4 (0.2-1) mg/dl AST 21 (15-37) U/L ALT 20 (12-78) U/L Alkaline Phosphatase 103 (45-117) U/L Troponin I (0-0.045) ng/ml NT-Pro-B Natriuret Pep (0-900) pg/ml Total Protein 6.8 (6.4-8.2) gm/dl Albumin 2.9 L (3.4-5.0) gm/dl Globulin 3.9 (2.5-4.0) gm/dl Albumin/Globulin Ratio 0.7 L (0.9-2) Lipase (73-393) U/L Influenza Type A (PCR) (Neg) Influenza Type B (PCR) (Neg) 11/20/18 11/20/18 11/20/18 Range/Units 07:17 07:39 11:51 WBC (4.8-10.8) K/uL RBC (4.2-5.4) M/uL Hgb (12.0-16.0) g/dL Hct (37-47) % MCV (80-100) fL MCH (25-34) pg MCHC (32-36) g/dL RDW Std Deviation (36.4-46.3) fL RDW Coeff of Tosin (11.5-14.5) % Plt Count (130-400) K/uL MPV (7.4-10.4) fL Immature Gran % (Auto) % Neut % (Auto) % Lymph % (Auto) % Vigo % (Auto) % Eos % (Auto) % Baso % (Auto) % Immature Gran # (Auto) (0.00-0.02) K/uL Neut # (Auto) (1.4-6.5) K/uL Lymph # (Auto) (1.2-3.4) K/uL Vigo # (Auto) (0.11-0.59) K/uL Eos # (Auto) (0-0.5) K/uL Baso # (Auto) (0-0.2) K/uL Platelet Estimate (Normal) PT (9.0-12.0) Seconds INR (0.9-1.1) VBG pH (7.36-7.41) VBG pCO2 (38-50) mmHg VBG pO2 mmHg VBG HCO3 mmol/L VBG O2 Saturation % VBG Base Excess mEq/L Barometric Pressure mm/Hg Sodium (136-145) mmol/L Potassium (3.5-5.1) mmol/L Chloride (98-107) mmol/L Carbon Dioxide (21-32) mmol/L Anion Gap (3-11) BUN (7-18) mg/dl Creatinine (0.6-1.2) mg/dl Est Cr Clr Drug Dosing ml/min Est GFR ( Amer) Est GFR (Non-Af Amer) BUN/Creatinine Ratio (10-20) Glucose (70-99) mg/dl POC Glucose 252 H 271 H (70-99) Estimat Average Glucose 189 mg/dl Hemoglobin A1c 8.2 H (4.5-5.6) % Calcium (8.5-10.1) mg/dl Phosphorus (2.5-4.9) mg/dl Magnesium (1.8-2.4) mg/dl Total Bilirubin (0.2-1) mg/dl AST (15-37) U/L ALT (12-78) U/L Alkaline Phosphatase (45-117) U/L Troponin I (0-0.045) ng/ml NT-Pro-B Natriuret Pep (0-900) pg/ml Total Protein (6.4-8.2) gm/dl Albumin (3.4-5.0) gm/dl Globulin (2.5-4.0) gm/dl Albumin/Globulin Ratio (0.9-2) Lipase (73-393) U/L Influenza Type A (PCR) (Neg) Influenza Type B (PCR) (Neg) 11/20/18 11/20/18 11/20/18 Range/Units 16:51 20:11 22:25 WBC (4.8-10.8) K/uL RBC (4.2-5.4) M/uL Hgb (12.0-16.0) g/dL Hct (37-47) % MCV (80-100) fL MCH (25-34) pg MCHC (32-36) g/dL RDW Std Deviation (36.4-46.3) fL RDW Coeff of Tosin (11.5-14.5) % Plt Count (130-400) K/uL MPV (7.4-10.4) fL Immature Gran % (Auto) % Neut % (Auto) % Lymph % (Auto) % Vigo % (Auto) % Eos % (Auto) % Baso % (Auto) % Immature Gran # (Auto) (0.00-0.02) K/uL Neut # (Auto) (1.4-6.5) K/uL Lymph # (Auto) (1.2-3.4) K/uL Vigo # (Auto) (0.11-0.59) K/uL Eos # (Auto) (0-0.5) K/uL Baso # (Auto) (0-0.2) K/uL Platelet Estimate (Normal) PT (9.0-12.0) Seconds INR (0.9-1.1) VBG pH (7.36-7.41) VBG pCO2 (38-50) mmHg VBG pO2 mmHg VBG HCO3 mmol/L VBG O2 Saturation % VBG Base Excess mEq/L Barometric Pressure mm/Hg Sodium (136-145) mmol/L Potassium (3.5-5.1) mmol/L Chloride (98-107) mmol/L Carbon Dioxide (21-32) mmol/L Anion Gap (3-11) BUN (7-18) mg/dl Creatinine (0.6-1.2) mg/dl Est Cr Clr Drug Dosing ml/min Est GFR ( Amer) Est GFR (Non-Af Amer) BUN/Creatinine Ratio (10-20) Glucose (70-99) mg/dl POC Glucose 352 H* 284 H 199 H (70-99) Estimat Average Glucose mg/dl Hemoglobin A1c (4.5-5.6) % Calcium (8.5-10.1) mg/dl Phosphorus (2.5-4.9) mg/dl Magnesium (1.8-2.4) mg/dl Total Bilirubin (0.2-1) mg/dl AST (15-37) U/L ALT (12-78) U/L Alkaline Phosphatase (45-117) U/L Troponin I (0-0.045) ng/ml NT-Pro-B Natriuret Pep (0-900) pg/ml Total Protein (6.4-8.2) gm/dl Albumin (3.4-5.0) gm/dl Globulin (2.5-4.0) gm/dl Albumin/Globulin Ratio (0.9-2) Lipase (73-393) U/L Influenza Type A (PCR) (Neg) Influenza Type B (PCR) (Neg) 11/21/18 Range/Units 00:05 WBC (4.8-10.8) K/uL RBC (4.2-5.4) M/uL Hgb (12.0-16.0) g/dL Hct (37-47) % MCV (80-100) fL MCH (25-34) pg MCHC (32-36) g/dL RDW Std Deviation (36.4-46.3) fL RDW Coeff of Tosin (11.5-14.5) % Plt Count (130-400) K/uL MPV (7.4-10.4) fL Immature Gran % (Auto) % Neut % (Auto) % Lymph % (Auto) % Vigo % (Auto) % Eos % (Auto) % Baso % (Auto) % Immature Gran # (Auto) (0.00-0.02) K/uL Neut # (Auto) (1.4-6.5) K/uL Lymph # (Auto) (1.2-3.4) K/uL Vigo # (Auto) (0.11-0.59) K/uL Eos # (Auto) (0-0.5) K/uL Baso # (Auto) (0-0.2) K/uL Platelet Estimate (Normal) PT (9.0-12.0) Seconds INR (0.9-1.1) VBG pH (7.36-7.41) VBG pCO2 (38-50) mmHg VBG pO2 mmHg VBG HCO3 mmol/L VBG O2 Saturation % VBG Base Excess mEq/L Barometric Pressure mm/Hg Sodium (136-145) mmol/L Potassium (3.5-5.1) mmol/L Chloride (98-107) mmol/L Carbon Dioxide (21-32) mmol/L Anion Gap (3-11) BUN (7-18) mg/dl Creatinine (0.6-1.2) mg/dl Est Cr Clr Drug Dosing ml/min Est GFR ( Amer) Est GFR (Non-Af Amer) BUN/Creatinine Ratio (10-20) Glucose (70-99) mg/dl POC Glucose 137 H (70-99) Estimat Average Glucose mg/dl Hemoglobin A1c (4.5-5.6) % Calcium (8.5-10.1) mg/dl Phosphorus (2.5-4.9) mg/dl Magnesium (1.8-2.4) mg/dl Total Bilirubin (0.2-1) mg/dl AST (15-37) U/L ALT (12-78) U/L Alkaline Phosphatase (45-117) U/L Troponin I (0-0.045) ng/ml NT-Pro-B Natriuret Pep (0-900) pg/ml Total Protein (6.4-8.2) gm/dl Albumin (3.4-5.0) gm/dl Globulin (2.5-4.0) gm/dl Albumin/Globulin Ratio (0.9-2) Lipase (73-393) U/L Influenza Type A (PCR) (Neg) Influenza Type B (PCR) (Neg) Imaging Data Radiologist's Impression: Radiology results as stated below per my review and the radiologist's interpretation: XR chest 1V portable HISTORY: Atypical Chest Pain COMPARISON: Chest 05/16/2018. FINDINGS: Left-sided favor pacemaker. The heart is normal in size. No pleural effusions. No pneumothorax. Mild interstitial and vascular thickening suggestive of mild congestive change. This remains unchanged. IMPRESSION: No change in the mild pulmonary vascular congestion without overt edema. Electronically signed by: Dash Nolasco M.D. 11/19/2018 4:19 PM Blood Pressure Blood Pressure Findings: Elevated blood pressure Blood Pressure Disposition: elevated BP felt to be situational MDM Narrative The patient is a pleasant 62-year-old woman with a past medical history of ischemic cardiomyopathy, and STEMI, sick sinus syndrome status post PPM, COPD who presents emergency department with worsening cough, congestion, shortness of breath over the past week per hpi. On arrival patient is uncomfortable and dyspneic but no acute distress, afebrile with heart rate in the 110s, hypoxic to 88% on room air, and vital signs otherwise stable. On exam the patient appears clinically dry. She has scattered wheezes and rhonchi. EKG demonstrates sinus tachycardia with out evidence of acute ischemia. Chest x-ray with question of mild pulmonary vascular congestion however limited bedside echo demonstrates IVC with 100% variability with respiration suggestive of dehydration. Bedside lung ultrasound without B-lines to suggest any significant fluid overload. Troponin 0.017. Magnesium 1.5 with repletion provided as well as for synergistic bronchodilation with continuous DuoNeb. Creatinine 1.24 within range of patient's prior values. WBC, H/H, and platelets within normal limits. VBG unremarkable. Chemistry without acidosis. BNP 2000s similar to prior value. Patient feeling some improvement after initial DuoNeb. Given the patient's hypoxia and severity of symptoms reasonable to admit the patient for further management of her likely COPD exacerbation as well as trending of her troponins given her history of coronary disease. Will treat with doxycycline for atypical coverage in the setting of the patient's COPD and report of productive brown sputum. Case was discussed with Dr. Diehl, [facility] hospitalist, who evaluate the patient for admission. Impression & Plan COPD exacerbation Discharge Plan Visit Data *Final* Discharge Date/Time: 11/19/18 18:30 Chief Complaint: Shortness of Breath/Dyspnea Stated Complaint: SOB, CONGESTION, RAPID HEART RATE ED Provider: Flip Castano Discharge Problem: COPD exacerbation Patient Disposition: Admitted As Inpatient Discharge Instructions Interventions: ED Discharge Assessment Last Done: 11/19/18 18:30 The scribe's documentation has been prepared under my direction and personally reviewed by me in its entirety. I confirm that the note above accurately reflects all work, treatment, procedures, and medical decision making performed by me.
[2018-11-19] MEDS ORDERED: ACETAMINOPHEN 325 MG TAB PO PRN (23:27)
[2018-11-19] MEDS ORDERED: GLUCOSE 10 TABS/TUBE PO PRN (23:27)
[2018-11-19] MEDS ORDERED: CARBOHYDRATES FOR HYPOGLYCEMIA PO PRN (23:27)
[2018-11-19] MEDS ORDERED: GLUCOSE 40% GEL 15 GM TUBE PO PRN (23:27)
[2018-11-19] MEDS ORDERED: ONDANSETRON INJ 2 MG/ML 2 ML VIAL IV PRN (23:27)
[2018-11-19] MEDS ORDERED: DEXTROSE 50% 50 ML SYRINGE IV PRN (23:27)
[2018-11-19] MEDS ORDERED: GLUCAGON FOR INJ 1 MG VIAL SQ PRN (23:27)
[2018-11-19] MEDS ORDERED: LORazepam 0.5 MG TAB PO PRN (23:48)
[2018-11-19] MEDS ORDERED: guaiFENesin SUGAR FREE 100 MG/5 ML UDC PO PRN (23:48)
[2018-11-20] MEDS: INSULIN ASPART 100 UNITS/ML 3 ML PEN SC SCH ×5 (00:15→21:23)
[2018-11-20] MEDS: HEPARIN SOD 5,000 UNIT/0.5 ML VIAL SQ SCH ×3 (00:18→20:56)
[2018-11-20] MEDS: RANOLAZINE 500 MG ER TAB PO SCH ×3 (00:19→21:25)
[2018-11-20] MEDS: GABAPENTIN 400 MG CAP PO SCH ×4 (00:19→21:23)
[2018-11-20] MEDS: PRAMIPEXOLE DIHYDROCHLO 0.25 MG TAB PO SCH ×2 (00:19→21:23)
[2018-11-20] MEDS: LEVALBUTEROL 1.25MG/0.5ML NEB NEB SCH ×4 (01:50→19:18)
[2018-11-20] MEDS: methylPREDNISolone 60 MG in SYRINGE 0 ML IV SCH ×2 (02:01→09:00)
[2018-11-20] MEDS: FUROSEMIDE 40 MG TAB PO SCH (08:01)
[2018-11-20] MEDS: METOPROLOL TARTRATE 100 MG TAB PO SCH ×2 (08:01→21:26)
[2018-11-20] MEDS: DULOXETINE HCL 60 MG CAP PO SCH (08:01)
[2018-11-20] MEDS: SITAGLIPTIN PHOSPHATE 100 MG TAB PO SCH (08:01)
[2018-11-20] MEDS: CLOPIDOGREL BISULFATE 75 MG TAB PO SCH (08:01)
[2018-11-20] MEDS: ISOSORBIDE MONO EXTENDED REL 30 MG TABCR PO SCH (08:01)
[2018-11-20] MEDS: ROSUVASTATIN CALCIUM 20 MG TAB PO SCH (08:02)
[2018-11-20 08:07] LABS: Albumin Level 2.9 gm/dl (3.4-5.0); BUN Creatinine Ratio 16.9 (10-20); Calcium 9.1 mg/dl (8.5-10.1); Creatinine Clr Calc Pharmacy 53.8 ml/min; Est GFR (African American) 57.4; Est GFR (Non-African American) 49.6
[2018-11-20 08:10] LABS: Albumin Globulin Ratio 0.7 (0.9-2); Bilirubin,Total 0.4 mg/dl (0.2-1); Globulin 3.9 gm/dl (2.5-4.0); Hemoglobin 14.1 g/dL (12.0-16.0); Mean Corpuscular Hgb Conc 34.4 g/dL (32-36); Mean Corpuscular Volume 86.9 fL (80-100); Mean Platelet Volume 13.4 fL (7.4-10.4); Platelet Count 128 K/uL (130-400); Platelet Estimate Normal (Normal); RDW Coefficient of Variation 14.6 % (11.5-14.5); RDW Standard Deviation 46.5 fL (36.4-46.3); Red Blood Count 4.72 M/uL (4.2-5.4); Total Protein 6.8 gm/dl (6.4-8.2); White Blood Count 7.17 K/uL (4.8-10.8)
[2018-11-20 08:19] LABS: Estimated Average Glucose 189 mg/dl; Hemoglobin A1C 8.2 % (4.5-5.6)
--- NOTE | 2018-11-20 08:57 | Anesthesiology Consultation ---
Date of Service November 20, 2018 Assessment & Plan (1) Encounter for pre-operative examination: Chart Review Chart Review: Acceptable Risk for Surgery History Height/Weight Height: 5 ft 3 in Weight: 94.6 kg Allergies Allergy/AdvReac Type Severity Reaction Status Date / Time No Known Allergies Allergy Unknown Verified 11/19/18 08:42 Medications Home Medications Medication Instructions Recorded Confirmed Last Taken Januvia 100 mg PO QAM 05/13/18 11/19/18 11/06/18 clopidogrel [Plavix] 75 mg PO QAM 05/13/18 11/19/18 11/01/18 duloxetine 60 mg PO QAM 05/13/18 11/19/18 11/06/18 lorazepam 0.5 mg PO TID PRN 05/13/18 11/19/18 11/01/18 metformin 1,000 mg PO BID 05/13/18 11/19/18 11/05/18 metoprolol tartrate 100 mg PO BID 05/13/18 11/19/18 11/06/18 rosuvastatin 40 mg PO QAM 05/13/18 11/19/18 11/06/18 Ranexa 500 mg PO BID #60 tab 05/17/18 11/19/18 11/06/18 amlodipine 10 mg PO QAM #60 tab 05/17/18 11/19/18 11/06/18 hydralazine 10 mg PO TID #90 tab 05/17/18 11/19/18 11/06/18 isosorbide mononitrate 30 mg PO QAM #30 tab 05/17/18 11/19/18 11/06/18 pramipexole 0.25 mg PO HS #30 tab 05/17/18 11/19/18 11/06/18 Medical Marijuana 1 dose INHALATION DAILY PRN 10/11/18 11/19/18 11/06/18 Xarelto 20 mg PO QAM 10/11/18 11/19/18 11/01/18 gabapentin 400 mg PO QID 10/11/18 11/19/18 11/06/18 baclofen 10 mg PO HS 11/19/18 11/19/18 Unknown furosemide [Lasix] 40 mg PO DAILY 11/19/18 11/19/18 Unknown meloxicam [Mobic] 15 mg PO DAILY 11/19/18 11/19/18 Unknown potassium chloride 10 meq PO BID 11/19/18 11/19/18 Unknown Active Medications Generic Name Dose Route Start Last Admin Trade Name Freq PRN Reason Stop Dose Admin Amlodipine Besylate 10 mg 11/19/18 18:06 11/19/18 18:14 Norvasc PO 12/19/18 18:05 10 mg QAM ROBYN Administration Clopidogrel Bisulfate 75 mg 11/20/18 09:00 11/20/18 08:01 Plavix PO 12/20/18 08:59 75 mg QAM ROBYN Administration Duloxetine HCl 60 mg 11/20/18 09:00 11/20/18 08:01 Cymbalta PO 12/20/18 08:59 60 mg QAM ROBYN Administration Furosemide 40 mg 11/20/18 09:00 11/20/18 08:01 Lasix PO 12/20/18 08:59 40 mg DAILY ROBYN Administration Gabapentin 400 mg 11/19/18 23:27 11/20/18 08:01 Neurontin PO 12/19/18 23:26 400 mg TID ROBYN Administration Guaifenesin 100 mg 11/19/18 23:48 11/20/18 00:20 Robitussin Sugar Free Syrup PO 12/19/18 23:47 100 mg Q6H PRN Administration Cough Heparin Sodium (Porcine) 5,000 units 11/19/18 23:27 11/20/18 07:56 Heparin Sodium (Porcine) SQ 12/19/18 23:26 Not Given Q12 ROBYN Methylprednisolone 60 mg/ 0.96 mls @ 1.5 mls/min 11/20/18 02:00 11/20/18 02:01 Syringe IV 12/20/18 01:59 1.5 mls/min Q8H ROBYN Administration Insulin Aspart 0 units 11/20/18 00:00 11/20/18 08:02 Novolog Flexpen SC 12/20/18 00:00 8 units ACHS ROBYN Administration Isosorbide Mononitrate 30 mg 11/20/18 09:00 11/20/18 08:01 Imdur Extended Rel PO 12/20/18 08:59 30 mg QAM ROBYN Administration Levalbuterol HCl 1.25 mg 11/20/18 02:00 11/20/18 07:17 Xopenex 1.25mg/0.5ml Neb NEB 12/20/18 01:59 1.25 mg Q6R ROBYN Administration Lorazepam 0.5 mg 11/19/18 23:48 11/20/18 00:23 Ativan PO 12/19/18 23:47 0.5 mg TID PRN Administration Anxiety Metoprolol Tartrate 100 mg 11/19/18 18:06 11/20/18 08:01 Lopressor PO 12/19/18 18:05 100 mg BID ROBYN Administration Pramipexole Dihydrochloride 0.25 mg 11/19/18 23:27 11/20/18 00:19 Mirapex PO 12/19/18 23:26 0.25 mg HS ROBYN Administration Ranolazine 500 mg 11/19/18 23:27 11/20/18 08:01 Ranexa PO 12/19/18 23:26 500 mg BID ROBYN Administration Rosuvastatin Calcium 40 mg 11/20/18 09:00 11/20/18 08:02 Crestor PO 12/20/18 08:59 40 mg QAM ROBYN Administration Sitagliptin Phosphate 100 mg 11/20/18 09:00 11/20/18 08:01 Januvia PO 12/20/18 08:59 100 mg QAM ROBYN Administration Past Medical History Medical History Systolic and diastolic CHF, chronic SSS (sick sinus syndrome) Paroxysmal SVT (supraventricular tachycardia) DM II (diabetes mellitus, type II), controlled PAD (peripheral artery disease) Hx of non-ST elevation myocardial infarction (NSTEMI) HLD (hyperlipidemia) HTN (hypertension) COPD (chronic obstructive pulmonary disease) Hypertension (Acute) Anxiety Bulging discs Chronic back pain Chronic obstructive pulmonary disease Degenerative disc disease Depression Diabetes mellitus, type 2 NIDDM Diabetic nephropathy Hyperlipidemia Incisional hernia Myocardial Infarction 05/2018 - [facility] Pacemaker 05/2015 - Sick sinus syndrome - Last checked 08/2018 - [employer] Peripheral vascular disease Rheumatoid arthritis Sick sinus syndrome Spinal stenosis Past Family History Family History Mother , Heart Disease Ruptured Appendix No problems noted. Father , with Vascular and Colon Can No problems noted. Sister No problems noted. Grandfather (Maternal) Family history of diabetes mellitus Past Surgical History Surgical History S/P cardiac pacemaker procedure History of cardiac cath 05/2018 - [place] - NO STENTS/ANGIOPLASTY - COLLATERAL CIRCULATION - FOLLOWS W/ DR. ERWIN History of cholecystectomy History of intravascular stent placement Multiple stents in bilateral legs, left subclavian, left aortic mesenteric bypass, left carotid endarterectomy History of oral surgery History of tonsillectomy History of tooth extraction Social History Smoking Status: Current every day smoker tobacco type: cigarettes and e-cigarettes Smoking cigarettes per day: VAPES + 2 CIGS PER DAY (SMOKER X 45 YEARS) Do You Dip or Chew Tobacco: No Hx Alcohol Use: Yes Alcohol type: beer alcohol intake frequency: other Alcohol Intake Frequency Comment: Social Hx Substance Use: No substance use type: marijuana Substance Use Type Other:: MEDICAL Physical Exam Vital Signs Last Vital Signs Temp 36.3 C L 11/20/18 08:16 Pulse 87 11/20/18 08:16 Resp 18 11/20/18 08:16 BP 169/87 H 11/20/18 08:16 Pulse Ox 92 11/20/18 08:16 Testing Electrocardiogram Date: 11/19/18 Findings: + ST @ (112 PAC's, septal infarct not new) Chest X-Ray Date: 11/19/18 Findings: + pulmonary vascular congestion (mild - no change from prior) Cardiac Catheterization Date: 05/16/18 Findings: + RCA (chronically occluded) Laboratory Results 11/20/18 07:17 11/20/18 07:17 PT 11.0 Seconds (9.0-12.0) 11/19/18 15:51 INR 1.1 (0.9-1.1) 11/19/18 15:51 Hemoglobin A1c 8.2 % (4.5-5.6) H 11/20/18 07:17 11/20/18 11/20/18 11/20/18 07:39 00:14 00:13 POC Glucose 252 H 327 H 361 H* 11/19/18 11/19/18 21:41 21:40 POC Glucose 374 H* 389 H*
[2018-11-20] MEDS: AMLODIPINE BESYLATE 5 MG TAB PO SCH (09:00)
[2018-11-20] MEDS ORDERED: PHARMACY GLYCEMIC MGMT CONSULT PRN (18:06)
[2018-11-20] MEDS ORDERED: INSULIN HUMAN REGULAR PER UNIT 9 UNITS in SYRINGE 8.91 ML IV ONE (18:15)
[2018-11-20] MEDS ORDERED: BACLOFEN 10 MG TAB PO SCH (21:00)
[2018-11-20] MEDS ORDERED: INSULIN GLARGINE SOLOSTAR 100 UNITS/ML 3 ML PEN SC SCH (21:00)
--- NOTE | 2018-11-20 21:30 | Pharmacy Report ---
Glycemic Control Consultation - Date of Service November 20, 2018 - Scope Scope: Glycemic Pharmacist consulted by Dr Schultz on [3-13] for glycemic control and to write orders per [facility] inpatient glycemic control protocol - Objective Weight: 94.6 kg Accuchecks BSG (last 24hrs): 11/19/18 11/19/18 11/20/18 21:40 21:41 00:13 Glucose POC Glucose 389 H* 374 H* 361 H* 11/20/18 11/20/18 11/20/18 00:14 07:17 07:39 Glucose 254 H POC Glucose 327 H 252 H 11/20/18 11/20/18 11/20/18 11:51 16:51 20:11 Glucose POC Glucose 271 H 352 H* 284 H Laboratory Data (last 24hrs): 11/20/18 07:17 Potassium 4.0 Carbon Dioxide 23 Anion Gap 10.0 Creatinine 1.17 Est Cr Clr Drug Dosing 53.8 HbA1c: Hemoglobin A1c 8.2 % (4.5-5.6) H 11/20/18 07:17 - Recent Pertinent Medications Outpatient Anti-diabetic Regimen: * metformin 1000 mg bid, januvia 100 qAM * A1c = 8.2 % [3-13] Risk Factors for Insulin Resistance: * Steroids: solumedrol 60 daily * Diet: T2DM - Assessment & Plan Assessment & Plan: ASSESSMENT: * 62 year old female admitted with COPD exac. PMH significant for htn,hld,PAD * A1c on admission 8.2% - managed only on oral agents at home * Pharmacy consulted day 2 of hospital stay - patient received steroids yesterday and continues on them today * Hyperglycemia likely related to steroids; BSG at 352 when pharmacy consulted today - novolog already given. Ordered 9 units of regular insulin x 1 for now * Bedtime BSG trending down to 284 mg/dL - will tighten CF/CR; also add Lantus on for this evening PLAN FOR INPATIENT GLYCEMIC CONTROL: * Outpatient oral diabetes medications: Januvia already started on admission - will consider starting metformin if Scr continues to improve (had been elevated on admission) * Basal insulin * Lantus 20 units x 1 this evening (between stress of 2/3); will evaluate BSG 11/21 for further orders * Bolus insulin * NovoLog per scale ACHS or Q6hrs while NPO * Goal Range: Low 110 mg/dL - High 140 mg/dL * Correction Factor: 15 mg/dL/unit * Nutritional / Prandial insulin per carb ratio of 1 unit per 6 grams CHO consumed * Please note that the plan above was derived based on current level of insulin resistance and hospital stress. These recommendations are appropriate for inpatient admission only. Plan of care upon discharge will need to be reassessed to avoid potential outpatient hypo/hyperglycemia. Thank you.
--- NOTE | 2018-11-20 22:41 | Hospitalist Progress Note ---
Date of Service November 20, 2018 Assessment & Plan (1) COPD (chronic obstructive pulmonary disease): - Admitted to med surg with tele - titrated Solu-Medrol 60 mg Q8H to daily for tomorrow, -Patient received 2 doses on 11/20 Xopenex nebs QID and Q2H prn, supplemental O2, Mucinex, sputum culture - Continue home spiriva inh 2 puff daily - Patient appears to be improving, will transfer patient to med/surg without tele. -Anticipate a discharge within 24-48 hours. - Patient follows with PCP Dr. Clayton as an outpatient, does not follow formally with pulm. (2) HTN (hypertension): -Resumed home meds. - IV hydralazine prn. Consider switch to home dosing of 10 mg PO TID tomorrow. (3) HLD (hyperlipidemia): - Cont rosuvastatin (4) Hx of non-ST elevation myocardial infarction (NSTEMI): (5) PAD (peripheral artery disease): (6) Paroxysmal SVT (supraventricular tachycardia): - hx of such, appears to have elevated HR secondary to shortness of breath. Monitor with tele. (7) SSS (sick sinus syndrome): (8) S/P cardiac pacemaker procedure: - medtronic dual chamber pacemaker last interrogated in Apr 2018 with prjected life of 8.5 yrs. (9) Systolic and diastolic CHF, chronic: - Follow on tele - Appears euvolemic, follows with Dr. Cedeno for pacemaker and Rhett Garduno PA-C as an outpt - Continue asa 81 mg daily, amlodipine 10 mg PO QAM, hydralazine 10 mg TID, Imdur 30 mg daily, Lasix 40 mg daily, ranexa 500 mg BID, - Continue plavix 75 mg PO QAM (10) DM II (diabetes mellitus, type II), controlled: - ISS wtih accuchecks achs - Hold metformin for now, continue januvia 100 mg QAM. - A1C is 8.2 -Her blood sugars are also likely worse with her steroids. will closely monitor. Given her GFR, may nesha to hold metformin going forward. will continue to monitor for now. (11) Hypomagnesemia: - Mag 1.5 upon admission,replaced. will recheck. (12) DVT prophylaxis: teds, scds, heparin subq Subjective Patient still reports some SOB at rest today. This is accompanied by an unproductive cough. Patient denies any fever chills. Review of Systems Constitutional: No fever, sweats or chills Eyes: No diplopia, no worsening or blurred vision ENT: normal hearing, no trouble swallowing Respiratory: As per HPI. Cardiovascular: No chest pain, tightness or palpitations Abdomen: No pain, nausea, vomiting, diarrhea or constipation Musculoskeletal: No joint pain, calf pain, swelling Neurologic: No weakness, numbness/tingling, or balance problems Psychiatric: No anxiety or depression Skin: No rash or itch Physical Exam Vital Signs (Past 24 Hours): Last Vital Signs Temp 36.4 C L 11/20/18 22:29 Pulse 82 11/20/18 22:29 Resp 18 11/20/18 22:29 BP 194/98 H 11/20/18 22:29 Pulse Ox 91 11/20/18 22:29 Physical Exam: General: awake, alert, no apparent distress,+ obese, Head: Normocephalic, atraumatic ENT: PERRL, EOMI, mucous membranes moist Chest: decreased wheezing. Cardiac: Regular rhythm, regular rate, no murmur, no JVD, normal peripheral pulses, good capillary refill Abdominal: NABS x 4 quadrants, soft, nontender to palpation, no rebound, guarding or tenderness Extremities: Normal inspection, no peripheral edema or erythema, calfs nontender to palpation Psych: Normal mood and affect Neuro: AAO x 3, no motor deficits, speech is clear
[2018-11-21] MEDS: INSULIN ASPART 100 UNITS/ML 3 ML PEN SC SCH ×4 (00:35→12:55)
[2018-11-21] MEDS: LEVALBUTEROL 1.25MG/0.5ML NEB NEB SCH ×2 (01:43→07:05)
[2018-11-21 06:24] LABS: Mean Corpuscular Hgb Conc 34.2 g/dL (32-36)
[2018-11-21 06:56] LABS: Hematocrit (blood only) 40.1 % (37-47); Hemoglobin 13.7 g/dL (12.0-16.0); Mean Corpuscular Volume 87.4 fL (80-100); RDW Coefficient of Variation 14.9 % (11.5-14.5); RDW Standard Deviation 47.5 fL (36.4-46.3); Red Blood Count 4.59 M/uL (4.2-5.4); White Blood Count 15.26 K/uL (4.8-10.8)
[2018-11-21 06:57] LABS: BUN Creatinine Ratio 18.2 (10-20); Calcium 8.6 mg/dl (8.5-10.1); Creatinine Clr Calc Pharmacy 40.4 ml/min; Est GFR (African American) 40.2; Est GFR (Non-African American) 34.7; Potassium 3.6 mmol/L (3.5-5.1)
[2018-11-21 06:59] LABS: Platelet Count 153 K/uL (130-400); Platelet Estimate Decreased (Normal)
[2018-11-21 07:00] LABS: Albumin Globulin Ratio 0.8 (0.9-2); Bilirubin,Total 0.4 mg/dl (0.2-1); Globulin 3.7 gm/dl (2.5-4.0); Total Protein 6.7 gm/dl (6.4-8.2)
[2018-11-21] MEDS: AMLODIPINE BESYLATE 5 MG TAB PO SCH (08:59)
[2018-11-21] MEDS: GABAPENTIN 400 MG CAP PO SCH ×2 (08:59→13:18)
[2018-11-21] MEDS: FUROSEMIDE 40 MG TAB PO SCH (08:59)
[2018-11-21] MEDS ORDERED: INSULIN GLARGINE SOLOSTAR 100 UNITS/ML 3 ML PEN SC ONE (09:00)
[2018-11-21] MEDS: ISOSORBIDE MONO EXTENDED REL 30 MG TABCR PO SCH (09:00)
[2018-11-21] MEDS: RANOLAZINE 500 MG ER TAB PO SCH (09:00)
[2018-11-21] MEDS: SITAGLIPTIN PHOSPHATE 100 MG TAB PO SCH (09:00)
[2018-11-21] MEDS: ROSUVASTATIN CALCIUM 20 MG TAB PO SCH (09:00)
[2018-11-21] MEDS ORDERED: methylPREDNISolone 60 MG in SYRINGE 0 ML IV SCH (09:00)
[2018-11-21] MEDS: CLOPIDOGREL BISULFATE 75 MG TAB PO SCH (09:01)
[2018-11-21] MEDS: DULOXETINE HCL 60 MG CAP PO SCH (09:01)
[2018-11-21] MEDS: METOPROLOL TARTRATE 100 MG TAB PO SCH (09:01)
[2018-11-21] MEDS: HEPARIN SOD 5,000 UNIT/0.5 ML VIAL SQ SCH (09:06)
--- NOTE | 2018-11-21 10:04 | Pharmacy Report ---
Pharmacy Glycemic Short Note 2 - Date of Service November 21, 2018 - Glycemic Short BSG Results (Last 24 hours): 11/20/18 11/20/18 11/20/18 11:51 16:51 20:11 Glucose POC Glucose 271 H 352 H* 284 H 11/20/18 11/21/18 11/21/18 22:25 00:05 04:08 Glucose POC Glucose 199 H 137 H 234 H 11/21/18 11/21/18 06:03 07:35 Glucose 295 H POC Glucose 253 H OUTPATIENT ANTIDIABETIC REGIMEN: * metformin 1000 mg bid, januvia 100 qAM * A1c = 8.2 % 11-20-18 ASSESSMENT: * Blood sugars still elevated above goal, will give larger dose of Lantus this morning and tighten CF and CR. * Solu-medrol tappered down to 60mg IV daily at this time, will need to loosen CF and CR parameters as steroids wear off * Will add dose of Lantus on tonight for BSG > 140mg/dl PLAN FOR INPATIENT GLYCEMIC CONTROL: * Outpatient oral diabetes medications * Continue Januvia 100mg PO daily (watch SCr) * Continue to hold Metformin - SCr bumped up to 1.57mg/dl today * Basal insulin * Lantus 30 units SQ x1 this am (further AM dosing decided 11/22 AM) * Lantus HS: 0 units BSG < 140mg/dl; 10 units BSG 140-180mg/dl; 20 units BSG < 180mg/dl * Bolus insulin * NovoLog per scale ACHS or Q6hrs while NPO * Goal Range: Low 110 mg/dL - High 140 mg/dL * TIGHTEN: Correction Factor: 12 mg/dL/unit * TIGHTEN: Nutritional / Prandial insulin per carb ratio of 1 unit per 4 grams CHO consumed PLAN FOR DISCHARGE: * A1c above goal at 8.2%. Consider once daily dose of Lantus if patient willing to do injectable/insulin.
[2018-11-21] MEDS ORDERED: INSULIN GLARGINE SOLOSTAR 100 UNITS/ML 3 ML PEN SC SCH (21:00)
--- NOTE | 2018-11-29 08:02 | Discharge Summary ---
Date of Service November 21, 2018 Admission HPI Per Admitting Provider This is a 62 yo F with PMHx of CAD, PAD s/p multiple peripheral stents, aortobifemoral bypass, sick sinus syndrome s/p dual-chamber pacemaker in 2014, NSTEMI in 2017, combined diastolic and systolic CHF, HTN, HLD, DM type II, COPD, chronic tobacco use, osteoarthritis, obesity who presents for increased shortness of breath times 1 day. Patient notes she recently had an upper respiratory infection over the weekend and this morning shortness of breath increased where she was unable to participate in basic ADLs. She notes that this morning she was experiencing some dizziness. Patient has been vaping 1 cartridge per day which is much less than typical, but also alternates this with cigarette smoking. She denies chest heaviness, chest pain, flutter, palpitations, fever, chills, lightheadedness. Patient does not have a home nebulizer. Patient did not take any of her morning medications. Principal Diagnosis COPD EXACERBATION Discharge Exam General: awake, alert, no apparent distress,+ obese, Head: Normocephalic, atraumatic ENT: PERRL, EOMI, mucous membranes moist Chest: clear Cardiac: Regular rhythm, regular rate, no murmur, no JVD, normal peripheral pulses, good capillary refill Abdominal: NABS x 4 quadrants, soft, nontender to palpation, no rebound, guarding or tenderness Extremities: Normal inspection, no peripheral edema or erythema, calfs nontender to palpation Psych: Normal mood and affect Neuro: AAO x 3, no motor deficits, speech is clear Discharge Data Allergies Allergy/AdvReac Type Severity Reaction Status Date / Time No Known Allergies Allergy Unknown Verified 11/27/18 06:30 Consultations 11/19/18 16:58 ED Decision to Admit Stat 11/19/18 23:27 Consult Case Management - Discharge Planning Routine Hospital Course (1) COPD (chronic obstructive pulmonary disease): - Admitted to med surg with tele - titrated Solu-Medrol 60 mg Q8H to daily for tomorrow, -Patient received 2 doses on 11/20 Xopenex nebs QID and Q2H prn, supplemental O2, Mucinex, sputum culture - Continue home spiriva inh 2 puff daily - Patient appears to be improving, will transfer patient to med/surg without tele. -Anticipate a discharge within 24-48 hours. - Patient follows with PCP Dr. Clayton as an outpatient, does not follow formally with pulm. On 11/21 Patient improved, was on room air. Will discharge patient on steroid taper. wll recommend f/u with OCP. (2) HTN (hypertension): -Resumed home meds. - IV hydralazine prn. Consider switch to home dosing of 10 mg PO TID tomorrow. (3) HLD (hyperlipidemia): - Cont rosuvastatin (4) Hx of non-ST elevation myocardial infarction (NSTEMI): (5) PAD (peripheral artery disease): (6) Paroxysmal SVT (supraventricular tachycardia): - hx of such, appears to have elevated HR secondary to shortness of breath. Monitor with tele. (7) SSS (sick sinus syndrome): (8) S/P cardiac pacemaker procedure: - medtronic dual chamber pacemaker last interrogated in Apr 2018 with prjected life of 8.5 yrs. (9) Systolic and diastolic CHF, chronic: - Follow on tele - Appears euvolemic, follows with Dr. Cedeno for pacemaker and Rhett Garduno PA-C as an outpt - Continue asa 81 mg daily, amlodipine 10 mg PO QAM, hydralazine 10 mg TID, Imdur 30 mg daily, Lasix 40 mg daily, ranexa 500 mg BID, - Continue plavix 75 mg PO QAM (10) DM II (diabetes mellitus, type II), controlled: - ISS wtih accuchecks achs - Hold metformin for now, continue januvia 100 mg QAM. - A1C is 8.2 -Her blood sugars are also likely worse with her steroids. will closely monitor. will continue metformin at discharge (11) Hypomagnesemia: - Mag 1.5 upon admission,replaced. (12) DVT prophylaxis: teds, scds, heparin subq Total Time Total Time Spent Total Time Spent (In Minutes): 32 Total Time Includes: Examination of the Patient, Discharge Planning and Medication Reconciliation Discharge Plan Discharge Items Patient Disposition: Home - Self-Care Reason For Visit: COPD EXACERBATION Discharge Diagnosis: COPD exacerbation Discharge Goals: Decrease discomfort and Diagnostic testing Activity: Resume your previous activity Non-emergency contact: Primary Care Provider Call non-emergency contact if: you have any medication questions Follow-up/Referrals: Glenny Correa CRNP [Primary Care Provider] - 11/29/18 11:00 am (Please, follow up at [facility] [place] Office with Glenny JACKSON on SundayNovember 29 at 11:00 am. *She will be your new primary care provider. This office is located at [address] [place] [address] in [place]. If you need to change this appointment, call the office at [phone].) Diet: Carb Consistent or DM2 and Heart Healthy Addtl Provider Instructions: Followup with PCP in 1 month. Prescriptions: New prednisone 10 mg tablet 10 mg PO DAILY Qty: 20 RF: 0 Continued metoprolol tartrate 100 mg Tablet 100 mg PO BID RF: 0 clopidogrel [Plavix] 75 mg Tablet 75 mg PO QAM RF: 0 lorazepam 0.5 mg Tablet 0.5 mg PO TID PRN (Reason: Anxiety) RF: 0 metformin 1,000 mg Tablet 1,000 mg PO BID RF: 0 duloxetine 60 mg Capsule,Delayed Release(Dr/Ec) 60 mg PO QAM RF: 0 rosuvastatin 40 mg Tablet 40 mg PO QAM RF: 0 Januvia 100 mg Tablet 100 mg PO QAM RF: 0 hydralazine 10 mg Tablet 10 mg PO TID Qty: 90 RF: 2 isosorbide mononitrate 30 mg Tablet Extended Release 24 Hr 30 mg PO QAM Qty: 30 RF: 2 amlodipine 5 mg Tablet 10 mg PO QAM Qty: 60 RF: 3 pramipexole 0.25 mg Tablet 0.25 mg PO HS Qty: 30 RF: 2 ranolazine [Ranexa] 500 mg Tablet Extended Release 12 Hr 500 mg PO BID Qty: 60 RF: 2 gabapentin 400 mg Capsule 400 mg PO QID RF: 0 Xarelto 20 mg Tablet 20 mg PO QAM RF: 0 Medical Marijuana 1 dose Inhalation DAILY PRN (Reason: Pain) RF: 0 furosemide [Lasix] 40 mg tablet 40 mg PO DAILY RF: 0 potassium chloride 10 mEq tablet extended release 10 meq PO BID RF: 0 baclofen 10 mg tablet 10 mg PO HS RF: 0 meloxicam [Mobic] 15 mg tablet 15 mg PO DAILY RF: 0 Stand-Alone Forms: [facility] Discharge Orders: Discharge Order (Routine); Ordered 11/21/18 Ordered By: Delfino Schultz Admission Data Admit Date/Time: 11/19/18 17:23 Attending Provider: Delfino Schultz Admit Provider: Radhika Diehl Primary Care Provider: Glenny Correa Other Providers: Radhika Diehl Service: Medical Other Interventions: Discharge Summary Assessment (RN) Last Done: 11/21/18 13:02 DC Date/Time DO NOT enter until pt leaves facility: 11/21/18 14:47
== END 2018-11-21 14:47 | disposition home or self-care (01) | DRG 191 ==
LOC: ED 15:27 → SUATTDRO 17:23 → 2N 17:23 → 4E 11-20 22:22
DX: I25.10 Atherosclerotic heart disease of native coronary artery without angina pectoris; F32.9 Major depressive disorder, single episode, unspecified; I25.5 Ischemic cardiomyopathy; I11.9 Hypertensive heart disease without heart failure; J44.1 Chronic obstructive pulmonary disease with (acute) exacerbation; E11.51 Type 2 diabetes mellitus with diabetic peripheral angiopathy without gangrene; E78.5 Hyperlipidemia, unspecified; F17.200 Nicotine dependence, unspecified, uncomplicated; M06.9 Rheumatoid arthritis, unspecified; Z79.02 Long term (current) use of antithrombotics/antiplatelets; Z79.84 Long term (current) use of oral hypoglycemic drugs; I50.42 Chronic combined systolic (congestive) and diastolic (congestive) heart failure; E83.42 Hypomagnesemia; I47.9 Paroxysmal tachycardia, unspecified; I25.2 Old myocardial infarction; E11.21 Type 2 diabetes mellitus with diabetic nephropathy; Z83.3 Family history of diabetes mellitus; Z95.0 Presence of cardiac pacemaker

== ENCOUNTER 2019-02-21 12:34 | Inpatient (IN) ==
[2019-02-21 13:34] LABS: Basophils # (auto) 0.04 K/uL (0-0.2); Basophils % (auto) 0.3 %; Eosinophils # (auto) 0.11 K/uL (0-0.5); Eosinophils % (auto) 0.9 %; Hemoglobin 14.2 g/dL (12.0-16.0); Immature Granulocytes # (auto) 0.04 K/uL (0.00-0.02); Immature Granulocytes % (auto) 0.3 %; Lymphocytes # (auto) 1.32 K/uL (1.2-3.4); Lymphocytes % (auto) 11.4 %; Mean Corpuscular Hgb Conc 33.8 g/dL (32-36); Mean Corpuscular Volume 86.2 fL (80-100); Mean Platelet Volume 12.6 fL (7.4-10.4); Monocytes # (auto) 1.07 K/uL (0.11-0.59); Monocytes % (auto) 9.2 %; Neutrophils # (auto) 9.01 K/uL (1.4-6.5); Neutrophils % (auto) 77.9 %; Platelet Count 169 K/uL (130-400); RDW Coefficient of Variation 16.1 % (11.5-14.5); RDW Standard Deviation 51.3 fL (36.4-46.3); Red Blood Count 4.87 M/uL (4.2-5.4); White Blood Count 11.59 K/uL (4.8-10.8)
[2019-02-21 13:44] LABS: Partial Thromboplastin Ratio 1.1; Partial Thromboplastin Time 29.8 Seconds (21.0-31.0); Prothrombin Time 10.5 Seconds (9.0-12.0)
[2019-02-21 13:51] LABS: Albumin Level 3.7 gm/dl (3.4-5.0); BUN Creatinine Ratio 13.4 (10-20); Calcium 9.1 mg/dl (8.5-10.1); Creatinine Clr Calc Pharmacy 51.7 ml/min; Est GFR (African American) 52.6; Est GFR (Non-African American) 45.4; Magnesium 1.6 mg/dl (1.8-2.4); Potassium 3.5 mmol/L (3.5-5.1)
[2019-02-21 14:02] LABS: Bilirubin,Total 0.4 mg/dl (0.2-1); Globulin 3.6 gm/dl (2.5-4.0); Total Protein 7.3 gm/dl (6.4-8.2); Troponin I 0.019 ng/ml (0-0.045)
[2019-02-21] MEDS ORDERED: MAGNESIUM SULFATE / D5W 1 GM/100 ML BAG IV ONE (14:06)
[2019-02-21] MEDS ORDERED: dilTIAZem HCl 125 MG in DEXTROSE 5% 100 ML IV SCH ×2 (14:15→16:35)
--- NOTE | 2019-02-21 14:23 | XRay Report ---
XR chest 1V portable HISTORY: 63 years-old Female tachycardia acute tachycardia COMPARISON: Chest radiograph 11/19/2018 TECHNIQUE: Portable AP view of the chest FINDINGS: Cardiomediastinal and hilar silhouettes are unchanged. Mild pulmonary vascular congestion without ove rt pulmonary edema. Stable positioning of the left subclavian pacer. Calcification of the thoracic co rtical arch. Vascular stent superior to the aortic arch redemonstrated. No pneumothorax, large pleura l effusion or lobar airspace consolidation. Degenerative changes of the shoulders and spine. IMPRESSION: Unchanged mild pulmonary vascular congestion. The above report was generated using voice recognition software. It may contain grammatical, syntax o r spelling errors. Electronically signed by: Shivam De Los Santos M.D. 02/21/2019 2:22 PM
[2019-02-21 14:28] LABS: Appearance Urine Clear (Clear); Bacteria Urine Automated 3+ (Negative); Bilirubin Urine Negative (Negative); Blood Urine Trace (Negative); Cast Urine Automated 0 /lpf (0-5); Color Urine Yellow; Epithelial Cell Urine Auto 0-5 /lpf (0-5); Glucose Urine UA 2+ (Negative); Ketones Urine Negative (Negative); Leukocyte Esterase Urine 1+ (Negative); Nitrite Urine Negative (Negative); Protein Urine 2+ (Negative); RBC Urine Automated 0-4 /hpf (0-4); Specific Gravity Urine 1.013 (1.000-1.030); Urobilinogen Urine Negative (Negative); pH Urine 5.5 (4.5-7.5)
--- NOTE | 2019-02-21 14:54 | History & Physical Report ---
Date of Service February 21, 2019 Assessment & Plan (1) Atrial fibrillation with rapid ventricular response: 62 y/o F Hx of CAD/DE, PAD - multiple peripheral stents and aortofemoral bypass, SSS - dual-chamber pacer, diastolic CHF, HTN, HLD, DM type II, COPD. Developed palpitations, SOB and CP AM. She presented to the ER when her symptoms persisted and she was found to be in AF. Initial labs wer unremarkable. Her pacer was interrogated in the ER and confirmed atrial fib. Her SBP on arrival was in the 190s. The pt is anticoagulated with Xarelto. She is admitted to telemetry on a Cardizem drip. 1) AF/RVR - placed on a Cardizem drip - she is anticoagulated at the time of admission. She will be assessed by her prosthetic aides teacher. 2) CP - history of CAD - resolved - a repeat trop is pending - cont statin, B danae, Imdur, Ranexa, Plavix. 3) PAD - cont Plavix, statin - she states she was prescribed Xarelto due to the severity of her vascular disease. 4) DM II - placed on a SS 5) HTN - not controlled on admission - if this does not improve with Diltiazem we will add an additional agent - she can continue Metoprolol and Imdur AM 6) SSS - pacer is functional 7) COPD - no evidence of acute exacerbation - not currently treated Full code - Xarelto prophylaxis Total time for this admit including review of labs, meds, imaging, records - discussion with pt and ER attending - 40 min Present on Admission?: Yes History of Present Illness Chief Complaint: CP, SOB, palpitations Primary Care Provider: MANUEL Middleton 62 y/o F Hx of CAD/DE, PAD - multiple peripheral stents and aortofemoral bypass, SSS - dual-chamber pacer, diastolic CHF, HTN, HLD, DM type II, COPD. Developed palpitations, SOB and CP AM. She presented to the ER when her symptoms persisted and she was found to be in AF. Initial labs wer unremarkable. Her pacer was interrogated in the ER and confirmed atrial fib. Her SBP on arrival was in the 190s. The pt is anticoagulated with Xarelto. She is admitted to telemetry on a Cardizem drip. 1) Chronic diastolic CHF - echo 2017 showing EF 65% 2) CAD - NSTEMI 05/2018 - CAD with collateral supply on cath - no stents placed - medical management includes Ranexa 3) PAD - multiple peripheral stents, BL aortofemoral bypass, aortic graft for mesenteric ischemia. 4) COPD 5) HTN 6) HLD 7) Sick sinus syndrome - pacer 8) History of SVTs 9) DM II 10) Obese Surgical: 1) Multiple peripheral stents 2) Aortofemoral bypass 3) Cataracts 4) Cholecystectomy 5) Pacer 2014 Social: Quit smoking 01/11/2019. Does not drink. 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 Family: Both parents - history of vacular disease Allergies Allergy/AdvReac Type Severity Reaction Status Date / Time No Known Drug Allergies Allergy Verified 02/21/19 13:44 Home Medications Home Medications Medication Instructions Recorded Confirmed Type Januvia 100 mg PO QAM 05/13/18 02/21/19 History clopidogrel [Plavix] 75 mg PO QAM 05/13/18 02/21/19 History duloxetine 60 mg PO QAM 05/13/18 02/21/19 History lorazepam 0.5 mg PO TID PRN 05/13/18 02/21/19 History metformin 1,000 mg PO BID 05/13/18 02/21/19 History metoprolol tartrate 100 mg PO BID 05/13/18 02/21/19 History rosuvastatin 40 mg PO QAM 05/13/18 02/21/19 History amlodipine 10 mg PO QAM #60 tab 05/17/18 02/21/19 Rx hydralazine 10 mg PO TID #90 tab 05/17/18 02/21/19 Rx isosorbide mononitrate 30 mg PO QAM #30 tab 05/17/18 02/21/19 Rx pramipexole 0.25 mg PO HS #30 tab 05/17/18 02/21/19 Rx ranolazine [Ranexa] 500 mg PO BID #60 tab 05/17/18 02/21/19 Rx Medical Marijuana 1 dose INHALATION DAILY PRN 10/11/18 02/21/19 History Xarelto 20 mg PO QAM 10/11/18 02/21/19 History gabapentin 400 mg PO QID 10/11/18 02/21/19 History baclofen 10 mg PO HS 11/19/18 02/21/19 History furosemide [Lasix] 40 mg PO DAILY 11/19/18 02/21/19 History meloxicam [Mobic] 15 mg PO DAILY 11/19/18 02/21/19 History potassium chloride 10 meq PO BID 11/19/18 02/21/19 History nitroglycerin 0.4 mg sublingual 0.[address] 1 TABLET UNDER #1 02/20/19 02/21/19 History tablet tab Past Med/Surg History Medical History Restless legs Obesity Nicotine dependence NSTEMI (non-ST elevated myocardial infarction) Mild cognitive impairment Left ventricular diastolic dysfunction Hypoxia Dyspnea Diabetes mellitus type 2, uncontrolled Depression with anxiety Combined systolic and diastolic heart failure Chronic low back pain COPD, moderate CAD (coronary artery disease) Systolic and diastolic CHF, chronic SSS (sick sinus syndrome) Paroxysmal SVT (supraventricular tachycardia) DM II (diabetes mellitus, type II), controlled PAD (peripheral artery disease) Hx of non-ST elevation myocardial infarction (NSTEMI) HLD (hyperlipidemia) HTN (hypertension) COPD (chronic obstructive pulmonary disease) Hypertension (Acute) Anxiety Bulging discs Chronic back pain Chronic obstructive pulmonary disease Degenerative disc disease Depression Diabetes mellitus, type 2 NIDDM Diabetic nephropathy Hyperlipidemia Incisional hernia Myocardial Infarction 05/2018 - [facility] Pacemaker 05/2015 - Sick sinus syndrome - Last checked 08/2018 - Medtronic Peripheral vascular disease Rheumatoid arthritis Sick sinus syndrome Spinal stenosis Surgical History S/P cardiac pacemaker procedure History of cardiac cath 05/2018 - [place] - NO STENTS/ANGIOPLASTY - COLLATERAL CIRCULATION - FOLLOWS W/ DR. ERWIN History of cataract surgery History of cholecystectomy History of intravascular stent placement Multiple stents in bilateral legs, left subclavian, left aortic mesenteric bypass, left carotid endarterectomy History of oral surgery History of tonsillectomy History of tooth extraction Social History Preferred Language: Jamaican Communication Ability: Effective Visual Impairment: No Limitations Beliefs That Will Affect Care: None Current Living Situation: Family Feels Safe at Home: Yes Smoking Status: Former smoker Tobacco Type: cigarettes and e-cigarettes Cigarettes Per Day: VAPES + 2 CIGS PER DAY Second Hand Exposure: No Hx Alcohol Use: Yes Alcohol type: beer Hx Substance Use: Yes substance use type: marijuana Substance Use Type Other:: MEDICAL MARIJUANA Review of Systems Review of Systems: Gen: Denies fevers, night sweats, rigors, fatigue, malaise, weight loss/gain ENT: Denies congestion, throat pain, hearing loss Eyes: Denies acute visual changes CV: Reported CP and palpitations as above Pulmonary: + SOB - no cough or wheezing GI: Denies N/V, diarrhea, constipation Neuro: Denies acute or unilateral weakness, acute gait impairment, headache or acute visual changes Musculoskeletal: Denies joint pain, inflammation Endocrine: Denies polydipsia, polyuria Skin: Denies acute rashes or ulcers Physical Exam Physical Exam: General: AAO x 3, no distress ENT: No erythema or exudates, no thrush Eyes: PAWAN, EOMI Head and neck: Normocephalic, atraumatic, No JVD, neck is supple. Chest/heart: Nontender, S1,2 irr, tachy, no murmurs, no gallops Lungs: CTAB, no wheezing or crackles Abdomen: Nontender, nondistended, BS+ Neuro: AAO x 3, speech is clear, no unilateral weakness or loss of sensation, coordination intact Musculoskeletal: No joint inflammation, muscle tenderness, FROM Skin: No acute rashes or ulcers Extremities: No clubbing, cyanosis, edema - pulses palpable Results & Data Vital Signs (Past 12 Hours) Vital Signs Temp Pulse Pulse Resp BP BP Pulse Ox 02/21/19 14:30 120 H 21 177/98 H 95 02/21/19 14:00 126 H 17 181/90 H 96 02/21/19 13:35 123 H 11 L 153/93 H 02/21/19 13:30 132 H 16 02/21/19 13:15 127 H 15 150/115 H 95 02/21/19 13:00 132 H 19 123/85 93 02/21/19 12:55 144 H 20 137/102 H 97 02/21/19 12:47 138 H 20 137/102 H 99 02/21/19 12:46 97 02/21/19 12:37 98.4 F 145 H 20 108/75 96 PG Care Time/CCT Total # of Minutes Spent Total Time Spent with Patient: Total time spent is greater than 50% in coordination of care (as documented) at patient's floor/unit and/or counseling patient:
[2019-02-21] MEDS ORDERED: ALUMINUM/MAGNESIUM SUSP 30 ML UDC PO PRN (16:35)
[2019-02-21] MEDS ORDERED: MAGNESIUM HYDROXIDE SUSP 30 ML UDC PO PRN (16:35)
[2019-02-21] MEDS ORDERED: ACETAMINOPHEN 325 MG TAB PO PRN (16:35)
[2019-02-21] MEDS ORDERED: POLYETHYLENE (MIRALAX) 17 GM PACK PO PRN (16:35)
[2019-02-21] MEDS ORDERED: ONDANSETRON INJ 2 MG/ML 2 ML VIAL IV PRN (16:35)
[2019-02-21] MEDS ORDERED: NITROGLYCERIN SL 0.4 MG/TAB TAB SL PRN (16:35)
[2019-02-21] MEDS ORDERED: LORazepam 0.5 MG TAB PO PRN (16:35)
[2019-02-21] MEDS ORDERED: GLUCOSE 40% GEL 15 GM TUBE PO PRN (17:00)
[2019-02-21] MEDS ORDERED: GLUCAGON FOR INJ 1 MG VIAL IM PRN (17:00)
[2019-02-21] MEDS ORDERED: DEXTROSE 50% 50 ML SYRINGE IV PRN (17:00)
[2019-02-21] MEDS ORDERED: GLUCOSE 10 TABS/TUBE PO PRN (17:00)
[2019-02-21] MEDS ORDERED: CARBOHYDRATES FOR HYPOGLYCEMIA PO PRN (17:00)
[2019-02-21] MEDS ORDERED: dilTIAZem HCL 30 MG TAB PO ONE (17:51)
[2019-02-21] MEDS: GABAPENTIN 400 MG CAP PO SCH ×2 (18:05→21:46)
[2019-02-21] MEDS: INSULIN ASPART 100 UNITS/ML 3 ML PEN SC SCH ×2 (18:06→21:46)
--- NOTE | 2019-02-21 19:52 | Cardiology Consultation ---
Date of Consultation February 21, 2019 Assessment & Plan (1) Tachycardia: She appears to have atrial activity and it resemble sinus rhythm and may be sinus tachycardia however there is no obvious reason for sustained sinus tachycardia and her heart rate is not weigh very much from the 120s. With carotid massage, her heart rate would improve transiently and her P-wave morphology would also change but then she would trend upward to the mid 120s. She may have atrial tachycardia with ectopic focus. Continue home dose of metoprolol 100 mg twice daily. Initiate diltiazem 30 mg p.o. q.6 hours. If her heart rate remains in the mid 120s, may not require diltiazem drip but can use for more sustained/faster tachycardia. Pacemaker was interrogated and [employer] rep reports SVT. Formal review tomorrow by electrophysiology, Dr. Bacon. (2) CAD (coronary artery disease): She did have an episode of chest discomfort today but this was in the setting of tachycardia. She also has been hypertensive while here for the most part. She has occluded RCA with collaterals. Symptoms may have represented angina. Recommend heart rate control as noted above.Continue high-intensity statin therapy and beta-danae. (3) S/P cardiac pacemaker procedure: Interrogation done as noted above. Pacemaker placed for sick sinus syndrome. (4) Paroxysmal SVT (supraventricular tachycardia): She carries a history of SVT according to records. Plan as above. (5) HTN (hypertension): Blood pressure has improved while being here. Diltiazem initiated as above. Disposition: I will be away from the hospital for the next [address] Bacon for any questions or concerns over the weekend. Dr. Cedeno, her primary care program resident, can resume her care next week. Dr. Bacon was contacted to inform him of today's findings and he will review her data tomorrow. Thank you for allowing me to participate in the care of your patient. Please call for any other questions or concerns. Sincerely, Les Uriostegui M.D. History of Present Illness Reason for Consultation: "Atrial fibrillation" Requesting Physician: Dr. Russell Attending Physician: Santana Russell MD History of Present Illness Ms. Sanz is a very pleasant 63-year-old female with a history significant for sick sinus syndrome status post dual-chamber pacemaker followed by Dr. Nydegger, prefer to role disease status post aorto mesenteric bypass and peripheral stents, left carotid endarterectomy and left carotid stent, hypertension, dyslip idemia, type 2 diabetes, CAD, and COPD. Her primary care program resident is Dr. Cedeno. She presented to [facility] today with palpitations. Yesterday she noted palpitations described as her heart racing with exertion. There is also accompanied shortness of breath. The symptoms occurred once again this morning and she also had an episode of substernal chest discomfort with nausea and an episode of vomiting, with exertion. She felt as though that this discomfort was similar to her myocardial infarction and the pain persisted for approximately 5 minutes. She described her angina in the past as a tightness. She still has palpitations while sitting in her hospital bed. Her heart rate is 125-126 rather consistently while sitting in her hospital bed. Typically when she checks her pulse at home which he does not do often, her heart rate is in the 96-100 bpm. She typically has edema but states that her legs look good today. She denies syncope, near-syncope, orthopnea, melena, hematochezia, hematuria, or other bleeding. In the emergency department, she was felt to have atrial fibrillation by ER and admitting physician. A diltiazem drip was ordered but had not yet been started. She is chronically anticoagulated due to her peripheral arterial disease. Review of systems: As above and otherwise negative/unremarkable. Social history: She quit smoking tobacco on January 11, 2018. Occasional alcohol. No drugs. Sister lives with her. She is . No children. 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 She is unaccompanied. Family history: Mother had aortic valve replacement. Maternal grandparents also had heart disease. Allergies Allergy/AdvReac Type Severity Reaction Status Date / Time No Known Drug Allergies Allergy Verified 02/21/19 13:44 Home Medications Home Medications Medication Instructions Recorded Confirmed Type Januvia 100 mg PO QAM 05/13/18 02/21/19 History clopidogrel [Plavix] 75 mg PO QAM 05/13/18 02/21/19 History duloxetine 60 mg PO QAM 05/13/18 02/21/19 History lorazepam 0.5 mg PO TID PRN 05/13/18 02/21/19 History metformin 1,000 mg PO BID 05/13/18 02/21/19 History metoprolol tartrate 100 mg PO BID 05/13/18 02/21/19 History rosuvastatin 40 mg PO QAM 05/13/18 02/21/19 History amlodipine 10 mg PO QAM #60 tab 05/17/18 02/21/19 Rx hydralazine 10 mg PO TID #90 tab 05/17/18 02/21/19 Rx isosorbide mononitrate 30 mg PO QAM #30 tab 05/17/18 02/21/19 Rx pramipexole 0.25 mg PO HS #30 tab 05/17/18 02/21/19 Rx ranolazine [Ranexa] 500 mg PO BID #60 tab 05/17/18 02/21/19 Rx Medical Marijuana 1 dose INHALATION DAILY PRN 10/11/18 02/21/19 History Xarelto 20 mg PO QAM 10/11/18 02/21/19 History gabapentin 400 mg PO QID 10/11/18 02/21/19 History baclofen 10 mg PO HS 11/19/18 02/21/19 History furosemide [Lasix] 40 mg PO DAILY 11/19/18 02/21/19 History meloxicam [Mobic] 15 mg PO DAILY 11/19/18 02/21/19 History potassium chloride 10 meq PO BID 11/19/18 02/21/19 History nitroglycerin 0.4 mg sublingual 0.4 [address] 1 TABLET UNDER #1 02/20/19 02/21/19 History tablet tab Patient History Medical History Restless legs Obesity Nicotine dependence NSTEMI (non-ST elevated myocardial infarction) Mild cognitive impairment Left ventricular diastolic dysfunction Hypoxia Dyspnea Diabetes mellitus type 2, uncontrolled Depression with anxiety Combined systolic and diastolic heart failure Chronic low back pain COPD, moderate CAD (coronary artery disease) Systolic and diastolic CHF, chronic SSS (sick sinus syndrome) Paroxysmal SVT (supraventricular tachycardia) DM II (diabetes mellitus, type II), controlled PAD (peripheral artery disease) Hx of non-ST elevation myocardial infarction (NSTEMI) HLD (hyperlipidemia) HTN (hypertension) COPD (chronic obstructive pulmonary disease) Cataract R/L cartartact removal Hypertension (Acute) Anxiety Bulging discs Chronic back pain Chronic obstructive pulmonary disease Degenerative disc disease Depression Diabetes mellitus, type 2 NIDDM Diabetic nephropathy Hyperlipidemia Incisional hernia Myocardial Infarction 05/2018 - [facility] Pacemaker 05/2015 - Sick sinus syndrome - Last checked 08/2018 - [employer] Rheumatoid arthritis Sick sinus syndrome Spinal stenosis Surgical History S/P cardiac pacemaker procedure History of cardiac cath 05/2018 - NM - NO STENTS/ANGIOPLASTY - COLLATERAL CIRCULATION - FOLLOWS W/ DR. ERWIN History of cataract surgery History of cholecystectomy History of intravascular stent placement Multiple stents in bilateral legs, left subclavian, left aortic mesenteric bypass, left carotid endarterectomy History of oral surgery History of tonsillectomy History of tooth extraction Social History Preferred Language: Romansh Communication Ability: Effective Visual Impairment: No Limitations Asset Recovery Specialist Required: No Beliefs That Will Affect Care: None Current Living Situation: Family Other Information That Helps Us Care for You: No Feels Safe at Home: Yes Safety Concerns: Feels Safe At This Time Smoking Status: Former smoker Tobacco Type: cigarettes and e-cigarettes Cigarettes Per Day: VAPES + 2 CIGS PER DAY Do You Dip or Chew Tobacco: No Smoking End Date: 01/11/19 Second Hand Exposure: Yes Hx Alcohol Use: Yes Alcohol type: beer Hx Substance Use: Yes substance use type: marijuana Substance Use Type Other:: uses vape for prescibed medical marijuana Physical Exam Physical Exam: Gen.: No acute distress. Alert and oriented. HEENT: Anicteric sclera. Neck: No JVD. Bilateral carotid bruit. Normal carotid upstrokes bilaterally. Cardiac: PMI was nondisplaced and prominent. No ventricular heave. Regular and tachycardic in the 120s. Normal S1-S2. No murmurs, rubs, or gallops. Pulmonary: Clear to auscultation bilaterally without wheezes, rales, or rhonchi. Abdomen: Soft, nontender, nondistended, with normoactive bowel sounds. No bruits noted. Extremities: 2+ right radial pulse. 1+ left radial pulse. 2+ posterior tibialis pulses bilaterally. Trace bilateral lower extremity edema. No cyanosis. Psychiatric: Affect appears appropriate. Results & Data Vital Signs (Past 12 Hours) Vital Signs Temp Pulse Pulse Resp BP BP BP 02/21/19 19:02 36.7 C 125 H 19 140/83 02/21/19 17:00 36.6 C 128 H 20 184/102 H 02/21/19 16:15 118 H 20 02/21/19 15:46 122 H 17 142/90 H 02/21/19 15:30 123 H 23 198/117 H 02/21/19 15:19 125 H 16 181/97 H 02/21/19 15:00 127 H 22 192/90 H 02/21/19 14:30 120 H 21 177/98 H 02/21/19 14:00 126 H 17 181/90 H 02/21/19 13:35 123 H 11 L 153/93 H 02/21/19 13:30 132 H 16 02/21/19 13:15 127 H 15 150/115 H 02/21/19 13:00 132 H 19 123/85 02/21/19 12:55 144 H 20 137/102 H 02/21/19 12:47 138 H 20 137/102 H 02/21/19 12:46 02/21/19 12:37 36.9 C 145 H 20 108/75 Pulse Ox 02/21/19 19:02 94 02/21/19 17:00 98 02/21/19 16:15 95 02/21/19 15:46 96 02/21/19 15:30 02/21/19 15:19 02/21/19 15:00 02/21/19 14:30 95 02/21/19 14:00 96 02/21/19 13:35 02/21/19 13:30 02/21/19 13:15 95 02/21/19 13:00 93 02/21/19 12:55 97 02/21/19 12:47 99 02/21/19 12:46 97 02/21/19 12:37 96 Laboratory Results Laboratory Results - last 24 hr 02/21/19 02/21/19 02/21/19 13:27 13:27 13:27 WBC 11.59 H RBC 4.87 Hgb 14.2 Hct 42.0 MCV 86.2 MCH 29.2 MCHC 33.8 RDW Std Deviation 51.3 H RDW Coeff of Tosin 16.1 H Plt Count 169 MPV 12.6 H Immature Gran % (Auto) 0.3 Neut % (Auto) 77.9 Lymph % (Auto) 11.4 [place] % (Auto) 9.2 Eos % (Auto) 0.9 Baso % (Auto) 0.3 Immature Gran # (Auto) 0.04 H Neut # (Auto) 9.01 H Lymph # (Auto) 1.32 [place] # (Auto) 1.07 H Eos # (Auto) 0.11 Baso # (Auto) 0.04 PT 10.5 INR 1.0 APTT 29.8 PTT Ratio 1.1 Sodium 137 Potassium 3.5 Chloride 103 Carbon Dioxide 23 Anion Gap 11.0 BUN 17 Creatinine 1.25 H Est Cr Clr Drug Dosing 51.7 Est GFR ( Amer) 52.6 Est GFR (Non-Af Amer) 45.4 BUN/Creatinine Ratio 13.4 Glucose 219 H POC Glucose Calcium 9.1 Magnesium 1.6 L Total Bilirubin 0.4 AST 15 ALT 18 Alkaline Phosphatase 146 H Troponin I 0.019 NT-Pro-B Natriuret Pep 852 Total Protein 7.3 Albumin 3.7 Globulin 3.6 Albumin/Globulin Ratio 1.0 Lipase 101 TSH 2.380 Urine Color Urine Appearance Urine pH Ur Specific [place] Urine Protein Urine Glucose (UA) Urine Ketones Urine Blood Urine Nitrite Urine Bilirubin Urine Urobilinogen Ur Leukocyte Esterase Urine WBC (Auto) Urine RBC (Auto) U Hyaline Cast (Auto) U Epithel Cells (Auto) Urine Bacteria (Auto) 02/21/19 02/21/19 14:05 16:55 WBC RBC Hgb Hct MCV MCH MCHC RDW Std Deviation RDW Coeff of Tosin Plt Count MPV Immature Gran % (Auto) Neut % (Auto) Lymph % (Auto) [place] % (Auto) Eos % (Auto) Baso % (Auto) Immature Gran # (Auto) Neut # (Auto) Lymph # (Auto) [place] # (Auto) Eos # (Auto) Baso # (Auto) PT INR APTT PTT Ratio Sodium Potassium Chloride Carbon Dioxide Anion Gap BUN Creatinine Est Cr Clr Drug Dosing Est GFR ( Amer) Est GFR (Non-Af Amer) BUN/Creatinine Ratio Glucose POC Glucose 226 H Calcium Magnesium Total Bilirubin AST ALT Alkaline Phosphatase Troponin I NT-Pro-B Natriuret Pep Total Protein Albumin Globulin Albumin/Globulin Ratio Lipase TSH Urine Color Yellow Urine Appearance Clear Urine pH 5.5 Ur Specific [place] 1.013 Urine Protein 2+ H Urine Glucose (UA) 2+ H Urine Ketones Negative Urine Blood Trace H Urine Nitrite Negative Urine Bilirubin Negative Urine Urobilinogen Negative Ur Leukocyte Esterase 1+ H Urine WBC (Auto) 10-30 H Urine RBC (Auto) 0-4 U Hyaline Cast (Auto) 0 U Epithel Cells (Auto) 0-5 Urine Bacteria (Auto) 3+ H Diagnostic Findings Echo 05/14/2018: Normal LV size, systolic function. EF 60-65%. Mid anteroseptum and mid inferoseptal wall appeared hypokinetic. Moderate LVH involving basal anteroseptum. Otherwise, mild concentric LVH. Type 2 diastolic dysfunction. Mild AI. Mild MR. RVSP 31. Cardiac catheterization 05/16/2018: Mid LAD 10-20%. Provides [id number] collaterals to the PDA. Ostial D1 20%. Circumflex provides [id number] collaterals to right PL. Dominant RCA. Proximal RCA 100% with right to right collaterals to mid segment and RV branch. Mid RCA then occluded. LVEDP 18. Dual-chamber pacemaker 07/19/2015 for sick sinus syndrome. Chest x-ray 02/21/2019: Unchanged mild pulmonary vascular congestion per Radiology. Comparison chest x-ray 11/19/2018. Telemetry personally reviewed: Rhythm appears to be sinus but cannot rule out atrial tachycardia. When providing carotid massage, P-wave morphology appear to change and her heart rate would normalize only to once again trend upward to mid 120s. ECG 02/21/2019 at 12:46 p.m.: Possible atrial flutter versus atrial tachycardia at 150 bpm. Nonspecific T-wave abnormality. ECG 02/21/2019 at 1:34 p.m.: Possible sinus tachycardia 129 bpm. PACs. Medications Administered Current Inpatient Medications Acetaminophen (Tylenol) 650 mg PO Q4H PRN PRN Reason: Pain or Fever Stop: 03/23/19 16:34 Al Hydrox/Mg Hydrox/Simethicone (Maalox) 15 ml PO Q4H PRN PRN Reason: Dyspepsia Stop: 03/23/19 16:34 Baclofen (Lioresal) 10 mg PO HS ROBYN Stop: 03/23/19 20:59 Clopidogrel Bisulfate (Plavix) 75 mg PO QAM ROBYN Stop: 03/24/19 08:59 Dextrose (Dextrose 50%) 25 - 50 ml IV UD PRN; Protocol PRN Reason: Hypoglycemia Protocol Stop: 03/23/19 16:59 Diltiazem HCl (Cardizem) 30 mg PO Q6H [facility] Stop: 03/24/19 00:00 Duloxetine HCl (Cymbalta) 60 mg PO QAM ROBYN Stop: 03/24/19 08:59 Furosemide (Lasix) 40 mg PO DAILY ROBYN Stop: 03/24/19 08:59 Gabapentin (Neurontin) 400 mg PO QID ROBYN Stop: 03/23/19 16:59 Last Admin: 02/21/19 18:05 Dose: 400 mg Documented by: Glucagon (Glucagen) 1 mg IM UD PRN; Protocol PRN Reason: Hypoglycemia Protocol Stop: 03/23/19 16:59 Glucose (Glucose 40%) 15 - 30 gm PO UD PRN; Protocol PRN Reason: Hypoglycemia Protocol Stop: 03/23/19 16:59 Glucose (Dex4 Glucose) 4 - 8 tabs PO UD PRN; Protocol PRN Reason: Hypoglycemia Protocol Stop: 03/23/19 16:59 Hydralazine HCl (Apresoline) 10 mg PO TID ROBYN Stop: 03/23/19 20:59 Diltiazem HCl 125 mg/ Dextrose 125 mls @ 5 mls/hr IV .Q24H ROBYN; Protocol Stop: 03/23/19 16:34 Last Admin: 02/21/19 17:58 Dose: Not Given Documented by: Insulin Aspart (Novolog Flexpen) 0 units SC ACHS [facility] Stop: 03/23/19 16:34 Last Admin: 02/21/19 18:06 Dose: 2 units Documented by: Isosorbide Mononitrate (Imdur Extended Rel) 30 mg PO QAM [facility] Stop: 03/24/19 08:59 Lorazepam (Ativan) 0.5 mg PO TID PRN PRN Reason: Anxiety Stop: 03/23/19 16:34 Magnesium Hydroxide (Milk Of Magnesia) 30 ml PO Q12H PRN PRN Reason: Constipation Stop: 03/23/19 16:34 Meloxicam (Mobic) 15 mg PO DAILY [facility] Stop: 03/24/19 08:59 Metoprolol Tartrate (Lopressor) 100 mg PO BID [facility] Stop: 03/23/19 20:59 Miscellaneous (Carbohydrates For Hypoglycemia) 15 - 30 gm PO UD PRN PRN Reason: Hypoglycemia Treatment Stop: 03/23/19 16:59 Nitroglycerin (Nitrostat) 0.4 mg SL UD PRN PRN Reason: chest pain Stop: 03/23/19 16:34 Ondansetron HCl (Zofran) 4 mg IV Q6H PRN PRN Reason: Nausea Stop: 03/23/19 16:34 Polyethylene Glycol (Miralax Powder Packet) 17 gm PO DAILY PRN PRN Reason: Constipation Stop: 03/23/19 16:34 Potassium Chloride (Klor-Con M10) 10 meq PO BID [facility] Stop: 03/23/19 20:59 Pramipexole Dihydrochloride (Mirapex) 0.25 mg PO HS [facility] Stop: 03/23/19 20:59 Ranolazine (Ranexa) 500 mg PO BID [facility] Stop: 03/23/19 20:59 Rivaroxaban (Xarelto) 20 mg PO QAM [facility] Stop: 03/24/19 08:59 Rosuvastatin Calcium (Crestor) 40 mg PO QAM [facility] Stop: 03/24/19 08:59
[2019-02-21] MEDS ORDERED: SODIUM CHLORIDE 0.9% 1000ML 1,000 ML IV SCH (20:00)
--- NOTE | 2019-02-21 20:45 | Emergency Department Note ---
History of Present Illness General Chief complaint: Cardiac Assessment Stated complaint: IRREGULAR HEART RATE, HEART RACING Time Seen by Provider: 02/21/19 13:00 History of Present Illness This is a 63-year-old female that presents to the emergency department via private vehicle with complaints of "irregular heart rate, heart racing". The patient has a complex medical history, noting that she has diabetes, history of OH in May, COPD, CAD, pacemaker, and vascular complications resulting in stents and grafts in the abdomen and lower extremities. She was doing well, and notes that yesterday she began with sensation that her heart was racing, followed by palpitations and shortness of breath with activity. She notes that she was increasingly short of breath when she was walking. She also notes int ermittent chest pain but notes none at this current time. Her solid fiber paster operator is Dr. Cedeno. She notes that at this time she feels well and does not feel as though the heart is racing. She is currently anticoagulated with Xarelto as well as Plavix. She has not missed any doses of her medication. Home Medications Home Medications Medication Instructions Recorded Confirmed Type Januvia 100 mg PO QAM 05/13/18 02/21/19 History clopidogrel [Plavix] 75 mg PO QAM 05/13/18 02/21/19 History duloxetine 60 mg PO QAM 05/13/18 02/21/19 History lorazepam 0.5 mg PO TID PRN 05/13/18 02/21/19 History metformin 1,000 mg PO BID 05/13/18 02/21/19 History metoprolol tartrate 100 mg PO BID 05/13/18 02/21/19 History rosuvastatin 40 mg PO QAM 05/13/18 02/21/19 History amlodipine 10 mg PO QAM #60 tab 05/17/18 02/21/19 Rx hydralazine 10 mg PO TID #90 tab 05/17/18 02/21/19 Rx isosorbide mononitrate 30 mg PO QAM #30 tab 05/17/18 02/21/19 Rx pramipexole 0.25 mg PO HS #30 tab 05/17/18 02/21/19 Rx ranolazine [Ranexa] 500 mg PO BID #60 tab 05/17/18 02/21/19 Rx Medical Marijuana 1 dose INHALATION DAILY PRN 02/01/19 06/14/19 History Xarelto 20 mg PO QAM 10/11/18 02/21/19 History gabapentin 400 mg PO QID 10/11/18 02/21/19 History baclofen 10 mg PO HS 11/19/18 02/21/19 History furosemide [Lasix] 40 mg PO DAILY 11/19/18 02/21/19 History meloxicam [Mobic] 15 mg PO DAILY 11/19/18 02/21/19 History potassium chloride 10 meq PO BID 11/19/18 02/21/19 History nitroglycerin 0.4 mg sublingual 0.4 [address] 1 TABLET UNDER #1 02/20/19 02/21/19 History tablet tab Allergies Allergy/AdvReac Type Severity Reaction Status Date / Time No Known Drug Allergies Allergy Verified 02/21/19 13:44 Past Med/Surg History Medical History Restless legs Obesity Nicotine dependence NSTEMI (non-ST elevated myocardial infarction) Mild cognitive impairment Left ventricular diastolic dysfunction Hypoxia Dyspnea Diabetes mellitus type 2, uncontrolled Depression with anxiety Combined systolic and diastolic heart failure Chronic low back pain COPD, moderate CAD (coronary artery disease) Systolic and diastolic CHF, chronic SSS (sick sinus syndrome) Paroxysmal SVT (supraventricular tachycardia) DM II (diabetes mellitus, type II), controlled PAD (peripheral artery disease) Hx of non-ST elevation myocardial infarction (NSTEMI) HLD (hyperlipidemia) HTN (hypertension) COPD (chronic obstructive pulmonary disease) Cataract R/L cartartact removal Hypertension (Acute) Anxiety Bulging discs Chronic back pain Chronic obstructive pulmonary disease Degenerative disc disease Depression Diabetes mellitus, type 2 NIDDM Diabetic nephropathy Hyperlipidemia Incisional hernia Myocardial Infarction 05/2018 - [facility] Pacemaker 05/2015 - Sick sinus syndrome - Last checked 08/2018 - [employer] Rheumatoid arthritis Sick sinus syndrome Spinal stenosis Surgical History S/P cardiac pacemaker procedure History of cardiac cath 05/2018 - [place] - NO STENTS/ANGIOPLASTY - COLLATERAL CIRCULATION - FOLLOWS W/ DR. ERWIN History of cataract surgery History of cholecystectomy History of intravascular stent placement Multiple stents in bilateral legs, left subclavian, left aortic mesenteric bypass, left carotid endarterectomy History of oral surgery History of tonsillectomy History of tooth extraction Family History Mother , Heart Disease Ruptured Appendix No problems noted. Father , with Vascular and Colon Can No problems noted. Sister No problems noted. Grandfather (Maternal) Family history of diabetes mellitus Social History Preferred Language: Romanian Communication Ability: Effective Visual Impairment: No Limitations Coach Cleaner Required: No Beliefs That Will Affect Care: None Current Living Situation: Family Other Information That Helps Us Care for You: No Feels Safe at Home: Yes Safety Concerns: Feels Safe At This Time Smoking Status: Former smoker Tobacco Type: cigarettes and e-cigarettes Cigarettes Per Day: VAPES + 2 CIGS PER DAY Do You Dip or Chew Tobacco: No Smoking End Date: 01/11/19 Second Hand Exposure: Yes Hx Alcohol Use: Yes Alcohol type: beer Hx Substance Use: Yes substance use type: marijuana Substance Use Type Other:: uses vape for prescibed medical marijuana Review of Systems A total of 10 systems reviewed and were otherwise negative Physical Exam Vital Signs Vital Signs - 24 hr 02/21/19 12:37 02/21/19 12:46 02/21/19 12:47 Temperature 36.9 C Temperature Source Oral Sepsis Recent Fever Within 48 Hours No Sepsis New/Unexplained Change in Mental Status No Sepsis Action Taken by Nursing No Action Required Pulse Rate 145 H 138 H Pulse Rate [Apical] Pulse Rate from SpO2 Sensor 138 H Pulse Rhythm Regular Pulse Strength Normal Respiratory Rate 20 20 Respiratory Effort / Characteristics Non-Labored Spontaneous Respiratory Depth Normal Respiratory Pattern Regular Blood Pressure 108/75 137/102 H Blood Pressure [Left Arm] Blood Pressure Mean 86 113 Blood Pressure Mean [Left Arm] Blood Pressure Position Sitting Pulse Oximetry 96 97 99 Oxygen Delivery Method Room Air Room Air 02/21/19 12:55 02/21/19 13:00 02/21/19 13:15 Temperature Temperature Source Sepsis Recent Fever Within 48 Hours Sepsis New/Unexplained Change in Mental Status Sepsis Action Taken by Nursing Pulse Rate 132 H 127 H Pulse Rate [Apical] 144 H Pulse Rate from SpO2 Sensor 132 H 127 H Pulse Rhythm Pulse Strength Respiratory Rate 20 19 15 Respiratory Effort / Characteristics Respiratory Depth Respiratory Pattern Blood Pressure 123/85 150/115 H Blood Pressure [Left Arm] 137/102 H Blood Pressure Mean 97 126 Blood Pressure Mean [Left Arm] 113 Blood Pressure Position Pulse Oximetry 97 93 95 Oxygen Delivery Method Room Air 02/21/19 13:30 02/21/19 13:35 02/21/19 14:00 Temperature Temperature Source Sepsis Recent Fever Within 48 Hours Sepsis New/Unexplained Change in Mental Status Sepsis Action Taken by Nursing Pulse Rate 132 H 123 H 126 H Pulse Rate [Apical] Pulse Rate from SpO2 Sensor 126 H Pulse Rhythm Pulse Strength Respiratory Rate 16 11 L 17 Respiratory Effort / Characteristics Respiratory Depth Respiratory Pattern Blood Pressure 153/93 H 181/90 H Blood Pressure [Left Arm] Blood Pressure Mean 113 120 Blood Pressure Mean [Left Arm] Blood Pressure Position Pulse Oximetry 96 Oxygen Delivery Method 02/21/19 14:30 02/21/19 15:00 Temperature Temperature Source Sepsis Recent Fever Within 48 Hours Sepsis New/Unexplained Change in Mental Status Sepsis Action Taken by Nursing Pulse Rate 120 H 127 H Pulse Rate [Apical] Pulse Rate from SpO2 Sensor 118 H Pulse Rhythm Pulse Strength Respiratory Rate 21 22 Respiratory Effort / Characteristics Respiratory Depth Respiratory Pattern Blood Pressure 177/98 H 192/90 H Blood Pressure [Left Arm] Blood Pressure Mean 124 124 Blood Pressure Mean [Left Arm] Blood Pressure Position Pulse Oximetry 95 Oxygen Delivery Method VITAL SIGNS - Vital signs and nursing notes were reviewed. Stable and afebrile. GENERAL - 63-year-old female appearing her stated age who is in no acute distress. She is resting comfortably in the examination bed. Communicates well with provider and answers questions appropriately. SKIN - Without rashes. No meningeal or petechial rash. HEAD - NC/AT. EYES - PERRL with EOMI bilaterally. Sclera anicteric. EARS - No deformities of external structures noted on gross examination bilaterally. NOSE - Midline and without cyanosis. No epistaxis or purulent drainage noted. MOUTH/OROPHARYNX - Without perioral cyanosis. NECK - Neck with FROM. Supple to palpation. No lymphadenopathy noted. No nuchal rigidity. LUNGS - Chest wall symmetric without accessory muscle use, intercostals retractions, or central cyanosis. Normal vesicular breath sounds CTA B/L. No wheezes, rales, or rhonchi appreciated. CARDIAC -tachycardia without any definite murmur. ABDOMEN - Abdominal contour normal without pulsations or visible masses. BS normoactive all four quadrants. No tenderness, palpable masses, hepatosplenomegaly, or ascites noted. EXTREMITIES - No clubbing or peripheral cyanosis. No pretibial edema present. +5/5 strength noted in UE/LE bilaterally. NEUROLOGIC - Cranial nerves II through XII grossly intact. PSYCH - A&O, and cooperates fully with examiner. Pt is very pleasant and interacts well with examiner. Course Administered Medications Baclofen (Lioresal) 10 mg PO HS ROBYN Stop: 03/23/19 20:59 Last Admin: 02/21/19 21:45 Dose: 10 mg Documented by: [id number] Gabapentin (Neurontin) 400 mg PO QID ROBYN Stop: 03/23/19 16:59 Last Admin: 02/21/19 21:46 Dose: 400 mg Documented by: [id number] Admin: 02/21/19 18:05 Dose: 400 mg Documented by: [id number] Hydralazine HCl (Apresoline) 10 mg PO TID ROBYN Stop: 03/23/19 20:59 Last Admin: 02/21/19 21:24 Dose: Not Given Documented by: [id number] Diltiazem HCl 125 mg/ Dextrose 125 mls @ 10 mls/hr IV .[id number] PRN; Protocol PRN Reason: TITRATE Stop: 03/23/19 21:29 Last Titration: 02/21/19 21:30 Dose: 10 mg/hr, 10 mls/hr Documented by: [id number] Admin: 02/21/19 21:15 Dose: 5 mg/hr, 5 mls/hr Documented by: [id number] Cosigned by: [id number] Insulin Aspart (Novolog Flexpen) 0 units SC ACHS [facility] Stop: 03/23/19 16:34 Last Admin: 02/21/19 21:46 Dose: Not Given Documented by: [id number] Cosigned by: [id number] Admin: 02/21/19 18:06 Dose: 2 units Documented by: [id number] Cosigned by: [id number] Metoprolol Tartrate (Lopressor) 100 mg PO BID ROBYN Stop: 03/23/19 20:59 Last Admin: 02/21/19 21:23 Dose: 100 mg Documented by: [id number] Potassium Chloride (Klor-Con M10) 10 meq PO BID ROBYN Stop: 03/23/19 20:59 Last Admin: 02/21/19 21:45 Dose: 10 meq Documented by: [id number] Pramipexole Dihydrochloride (Mirapex) 0.25 mg PO HS ROBYN Stop: 03/23/19 20:59 Last Admin: 02/21/19 21:45 Dose: 0.25 mg Documented by: [id number] Ranolazine (Ranexa) 500 mg PO BID ROBYN Stop: 03/23/19 20:59 Last Admin: 02/21/19 21:45 Dose: 500 mg Documented by: [id number] Discontinued Medications Adenosine (Adenosine) 6 mg IV NOW STA Stop: 02/21/19 20:59 Last Admin: 02/21/19 21:37 Dose: Not Given Documented by: [id number] Adenosine (Adenosine) Confirm Administered Dose 6 mg IV .STK-MED ONE Stop: 02/21/19 21:02 Last Admin: 02/21/19 21:40 Dose: Not Given Documented by: [id number] Diltiazem HCl (Cardizem) 30 mg PO NOW ONE Stop: 02/21/19 17:52 Last Admin: 02/21/19 18:22 Dose: 30 mg Documented by: [id number] Diltiazem HCl (Cardizem) 10 mg IV NOW STA Stop: 02/21/19 20:59 Last Admin: 02/21/19 21:27 Dose: 10 mg Documented by: [id number] Cosigned by: [id number] Diltiazem HCl (Cardizem) Confirm Administered Dose 25 mg IV .STK-MED ONE Stop: 02/21/19 21:05 Last Admin: 02/21/19 21:40 Dose: Not Given Documented by: [id number] Magnesium Sulfate/Dextrose (Magnesium Sulfate / D5w) 1 gm in 100 mls @ 100 mls/hr IV ONE ONE Stop: 02/21/19 15:05 Last Infusion: 02/21/19 15:35 Dose: 0 mls/hr Documented by: [id number] Admin: 02/21/19 14:38 Dose: 100 mls/hr Documented by: [id number] Diltiazem HCl 125 mg/ Dextrose 125 mls @ 5 mls/hr IV .Q24H ROBYN; Protocol Stop: 03/23/19 14:14 Last Titration: 02/21/19 17:45 Dose: 0 mg/hr, 0 mls/hr Documented by: [id number] Admin: 02/21/19 14:38 Dose: 5 mg/hr, 5 mls/hr Documented by: [id number] Cosigned by: [id number] Diltiazem HCl 125 mg/ Dextrose 125 mls @ 5 mls/hr IV .Q24H [facility]; Protocol Stop: 03/23/19 16:34 Last Admin: 02/21/19 17:58 Dose: Not Given Documented by: [id number] Medical Decision Making Laboratory Data Result diagrams: 02/21/19 21:06 02/21/19 21:06 Lab Results 02/21/19 02/21/19 02/21/19 Range/Units 13:27 13:27 13:27 WBC 11.59 H (4.8-10.8) K/uL RBC 4.87 (4.2-5.4) M/uL Hgb 14.2 (12.0-16.0) g/dL Hct 42.0 (37-47) % MCV 86.2 (80-100) fL MCH 29.2 (25-34) pg MCHC 33.8 (32-36) g/dL RDW Std Deviation 51.3 H (36.4-46.3) fL RDW Coeff of Tosin 16.1 H (11.5-14.5) % Plt Count 169 (130-400) K/uL MPV 12.6 H (7.4-10.4) fL Immature Gran % (Auto) 0.3 % Neut % (Auto) 77.9 % Lymph % (Auto) 11.4 % Rogers % (Auto) 9.2 % Eos % (Auto) 0.9 % Baso % (Auto) 0.3 % Immature Gran # (Auto) 0.04 H (0.00-0.02) K/uL Neut # (Auto) 9.01 H (1.4-6.5) K/uL Lymph # (Auto) 1.32 (1.2-3.4) K/uL Rogers # (Auto) 1.07 H (0.11-0.59) K/uL Eos # (Auto) 0.11 (0-0.5) K/uL Baso # (Auto) 0.04 (0-0.2) K/uL PT 10.5 (9.0-12.0) Seconds INR 1.0 (0.9-1.1) APTT 29.8 (21.0-31.0) Seconds PTT Ratio 1.1 Sodium 137 (136-145) mmol/L Potassium 3.5 (3.5-5.1) mmol/L Chloride 103 (98-107) mmol/L Carbon Dioxide 23 (21-32) mmol/L Anion Gap 11.0 (3-11) BUN 17 (7-18) mg/dl Creatinine 1.25 H (0.6-1.2) mg/dl Est Cr Clr Drug Dosing 51.7 ml/min Est GFR ( Amer) 52.6 Est GFR (Non-Af Amer) 45.4 BUN/Creatinine Ratio 13.4 (10-20) Glucose 219 H (70-99) mg/dl Calcium 9.1 (8.5-10.1) mg/dl Magnesium 1.6 L (1.8-2.4) mg/dl Total Bilirubin 0.4 (0.2-1) mg/dl AST 15 (15-37) U/L ALT 18 (12-78) U/L Alkaline Phosphatase 146 H (45-117) U/L Troponin I 0.019 (0-0.045) ng/ml NT-Pro-B Natriuret Pep 852 (0-900) pg/ml Total Protein 7.3 (6.4-8.2) gm/dl Albumin 3.7 (3.4-5.0) gm/dl Globulin 3.6 (2.5-4.0) gm/dl Albumin/Globulin Ratio 1.0 (0.9-2) Lipase 101 (73-393) U/L TSH 2.380 (0.300-4.500) uIu/ml Urine Color Urine Appearance (Clear) Urine pH (4.5-7.5) Ur Specific Universal (1.000-1.030) Urine Protein (Negative) Urine Glucose (UA) (Negative) Urine Ketones (Negative) Urine Blood (Negative) Urine Nitrite (Negative) Urine Bilirubin (Negative) Urine Urobilinogen (Negative) Ur Leukocyte Esterase (Negative) Urine WBC (Auto) (0-5) /hpf Urine RBC (Auto) (0-4) /hpf U Hyaline Cast (Auto) (0-5) /lpf U Epithel Cells (Auto) (0-5) /lpf Urine Bacteria (Auto) (Negative) 02/21/19 Range/Units 14:05 WBC (4.8-10.8) K/uL RBC (4.2-5.4) M/uL Hgb (12.0-16.0) g/dL Hct (37-47) % MCV (80-100) fL MCH (25-34) pg MCHC (32-36) g/dL RDW Std Deviation (36.4-46.3) fL RDW Coeff of Tosin (11.5-14.5) % Plt Count (130-400) K/uL MPV (7.4-10.4) fL Immature Gran % (Auto) % Neut % (Auto) % Lymph % (Auto) % Rogers % (Auto) % Eos % (Auto) % Baso % (Auto) % Immature Gran # (Auto) (0.00-0.02) K/uL Neut # (Auto) (1.4-6.5) K/uL Lymph # (Auto) (1.2-3.4) K/uL Rogers # (Auto) (0.11-0.59) K/uL Eos # (Auto) (0-0.5) K/uL Baso # (Auto) (0-0.2) K/uL PT (9.0-12.0) Seconds INR (0.9-1.1) APTT (21.0-31.0) Seconds PTT Ratio Sodium (136-145) mmol/L Potassium (3.5-5.1) mmol/L Chloride (98-107) mmol/L Carbon Dioxide (21-32) mmol/L Anion Gap (3-11) BUN (7-18) mg/dl Creatinine (0.6-1.2) mg/dl Est Cr Clr Drug Dosing ml/min Est GFR ( Amer) Est GFR (Non-Af Amer) BUN/Creatinine Ratio (10-20) Glucose (70-99) mg/dl Calcium (8.5-10.1) mg/dl Magnesium (1.8-2.4) mg/dl Total Bilirubin (0.2-1) mg/dl AST (15-37) U/L ALT (12-78) U/L Alkaline Phosphatase (45-117) U/L Troponin I (0-0.045) ng/ml NT-Pro-B Natriuret Pep (0-900) pg/ml Total Protein (6.4-8.2) gm/dl Albumin (3.4-5.0) gm/dl Globulin (2.5-4.0) gm/dl Albumin/Globulin Ratio (0.9-2) Lipase (73-393) U/L TSH (0.300-4.500) uIu/ml Urine Color Yellow Urine Appearance Clear (Clear) Urine pH 5.5 (4.5-7.5) Ur Specific Universal 1.013 (1.000-1.030) Urine Protein 2+ H (Negative) Urine Glucose (UA) 2+ H (Negative) Urine Ketones Negative (Negative) Urine Blood Trace H (Negative) Urine Nitrite Negative (Negative) Urine Bilirubin Negative (Negative) Urine Urobilinogen Negative (Negative) Ur Leukocyte Esterase 1+ H (Negative) Urine WBC (Auto) 10-30 H (0-5) /hpf Urine RBC (Auto) 0-4 (0-4) /hpf U Hyaline Cast (Auto) 0 (0-5) /lpf U Epithel Cells (Auto) 0-5 (0-5) /lpf Urine Bacteria (Auto) 3+ H (Negative) Imaging Data Radiologist's Impression: XR chest 1V portable HISTORY: 63 years-old Female tachycardia acute tachycardia COMPARISON: Chest radiograph 11/19/2018 TECHNIQUE: Portable AP view of the chest FINDINGS: Cardiomediastinal and hilar silhouettes are unchanged. Mild pulmonary vascular congestion without overt pulmonary edema. Stable positioning of the left subclavian pacer. Calcification of the thoracic cortical arch. Vascular stent superior to the aortic arch redemonstrated. No pneumothorax, large pleural effusion or lobar airspace consolidation. Degenerative changes of the shoulders and spine. IMPRESSION: Unchanged mild pulmonary vascular congestion. The above report was generated using voice recognition software. It may contain grammatical, syntax or spelling errors. Electronically signed by: Shivam De Los Santos M.D. 02/21/2019 2:22 PM MDM Narrative Patient was seen and evaluated as above in room B6. Review was performed of nursing notes and vital signs. After obtaining a thorough history and physical examination the above work up was performed. She presents to us today with subj ective complaints of palpitations as well as dyspnea on exertion and intermittent chest pain. She has no chest pain or any complaints at this time. She is nontoxic on exam. Upon my entrance into the examination room I was provided an EKG that showed what initially appeared to be sinus tachycardia, however after thorough review with the attending physician is felt to be more along the lines of atrial fibrillation or other atrial tachycardia. This was at a rate of 150 bpm. This was repeated and was found to reveal a ventricular rate of 129 bpm that was felt to be sinus tachycardia as there were P waves present. Chest x-ray does not reveal any emergent process. Labs were drawn. CBC reveals minimal leukocytosis, no anemia. I did discuss the findings with the attending physician who also personally evaluated the patient and we then talked to the solid fiber paster operator regarding the 2 EKGs. I spoke to Dr. Gen Uriostegui. We discussed initiation of diltiazem as well as repletion of her magnesium which was found to be low. She was given 1 g of magnesium IV as well as started on a bolus/drip of Diltiazem which was felt to be warranted given the patient's persistent tachycardia as well as blood pressure was able to support this medication. I do not think that she is dehydrated or fluid deprived causing the tachycardia. Her troponin here in the department x1 was negative. BNP was normal. She is in a euthyroid state. Because of the patient's presentation, noting the tachycardia and her complex medical history I do believe that further evaluation and management in the inpatient setting is warranted. Patient was in agreement. Case was then subtotally discussed with the hospitalist, Dr. Russell. He will admit the patient for further evaluation and management. Please refer to further documentation regarding her stay. I attest that I have personally reviewed the patient medication list. I attest that I have reviewed the patient's blood pressure and it was found to be elevated. GCS: 15 IMPRESSION: Chest Pain In the evaluation and treatment of this patient, the following differential diagnoses were considered: OH, ASC, Dysrhythmia, Angina, Mediastinitis, GERD, Es ophagitis, PE, Pneumonia, Bronchitis, Costochondritis, Rib Fracture, Zoster, electrolyte abnormality, atrial tachycardia, atrial fibrillation, among others. Impression & Plan Tachycardia, Hypomagnesemia Critical Care Time Critical Care Time: Yes Total Critical Care Time: 60 (I have personally spent greater than 30 minutes of critical care time in the direct management of this patient. This includes bedside care, interpretation of diagnostic studies, and testing, discussion with consultants, patient, and family members, and other required patient management activities. This minutes is in excess of all separately billable procedures.) I have personally spent greater than 60 minutes of critical care time in the direct management of this patient. This includes bedside care, interpretation of diagnostic studies, and testing, discussion with consultants, patient, and family members, and other required patient management activities. This 60 minutes is in excess of all separately billable procedures. Discharge Plan Visit Data *Final* Discharge Date/Time: 02/21/19 16:15 Chief Complaint: Cardiac Assessment Stated Complaint: IRREGULAR HEART RATE, HEART RACING ED Provider: Corey Almanzar ED Midlevel Provider: Scot Rudolph Discharge Problem: Tachycardia, Hypomagnesemia Patient Disposition: Admitted As Inpatient Condition: Fair Discharge Instructions Interventions: ED Discharge Assessment Last Done: 02/21/19 16:15
[2019-02-21] MEDS ORDERED: ADENOSINE IV SOLN 3 MG/ML 2 ML VIAL IV STA (20:58)
[2019-02-21] MEDS ORDERED: dilTIAZem HCl 5 MG/ML 5 ML VIAL IV STA (20:58)
[2019-02-21] MEDS ORDERED: PRAMIPEXOLE DIHYDROCHLO 0.25 MG TAB PO SCH (21:00)
[2019-02-21] MEDS ORDERED: dilTIAZem HCL 30 MG TAB PO SCH (21:00)
[2019-02-21] MEDS ORDERED: BACLOFEN 10 MG TAB PO SCH (21:00)
[2019-02-21] MEDS ORDERED: ADENOSINE IV SOLN 3 MG/ML 2 ML VIAL IV ONE (21:01)
[2019-02-21] MEDS ORDERED: dilTIAZem HCl 5 MG/ML 5 ML VIAL IV ONE (21:04)
[2019-02-21] MEDS: dilTIAZem HCL 30 MG TAB PO SCH (21:13)
[2019-02-21] MEDS: METOPROLOL TARTRATE 100 MG TAB PO SCH (21:23)
[2019-02-21] MEDS: HydrALAZINE 10 MG TAB PO SCH (21:24)
[2019-02-21 21:27] LABS: Basophils # (auto) 0.04 K/uL (0-0.2); Basophils % (auto) 0.3 %; Eosinophils # (auto) 0.12 K/uL (0-0.5); Eosinophils % (auto) 0.8 %; Hematocrit (blood only) 43.2 % (37-47); Hemoglobin 14.5 g/dL (12.0-16.0); Immature Granulocytes # (auto) 0.07 K/uL (0.00-0.02); Immature Granulocytes % (auto) 0.4 %; Lymphocytes # (auto) 3.88 K/uL (1.2-3.4); Lymphocytes % (auto) 24.6 %; Mean Corpuscular Hgb Conc 33.6 g/dL (32-36); Mean Corpuscular Volume 86.9 fL (80-100); Mean Platelet Volume 13.4 fL (7.4-10.4); Monocytes # (auto) 1.89 K/uL (0.11-0.59); Neutrophils # (auto) 9.76 K/uL (1.4-6.5); Neutrophils % (auto) 61.9 %; Platelet Count 239 K/uL (130-400); RDW Coefficient of Variation 16.4 % (11.5-14.5); RDW Standard Deviation 51.9 fL (36.4-46.3); Red Blood Count 4.97 M/uL (4.2-5.4); White Blood Count 15.76 K/uL (4.8-10.8)
[2019-02-21] MEDS ORDERED: dilTIAZem HCl 125 MG in DEXTROSE 5% 100 ML IV PRN (21:30)
[2019-02-21 21:38] LABS: BUN Creatinine Ratio 12.5 (10-20); Calcium 9.2 mg/dl (8.5-10.1); Creatinine Clr Calc Pharmacy 45.8 ml/min; Est GFR (African American) 45.5; Est GFR (Non-African American) 39.3; Potassium 3.3 mmol/L (3.5-5.1)
[2019-02-21 21:44] LABS: Phosphorus 2.3 mg/dl (2.5-4.9); Troponin I 0.073 ng/ml (0-0.045)
[2019-02-21] MEDS: POTASSIUM CHLORIDE 10 MEQ TABCR PO SCH (21:45)
[2019-02-21] MEDS: RANOLAZINE 500 MG ER TAB PO SCH (21:45)
[2019-02-21] MEDS ORDERED: POTASSIUM CHLORIDE 20 MEQ TABCR PO STA (22:21)
[2019-02-21] MEDS ORDERED: Nursing to Pharmacy Communication ONE (23:57)
[2019-02-22] MEDS ORDERED: POTASSIUM CHLORIDE 20 MEQ TABCR PO ONE
[2019-02-22] MEDS: dilTIAZem HCL 30 MG TAB PO SCH ×2 (03:22→08:36)
[2019-02-22 06:17] LABS: Creatinine Clr Calc Pharmacy 56.1 ml/min; Est GFR (African American) 58.2; Est GFR (Non-African American) 50.2
--- NOTE | 2019-02-22 07:42 | Hospitalist Progress Note ---
Date of Service February 22, 2019 Assessment & Plan (1) Atrial fibrillation with rapid ventricular response: 62 y/o F Hx of CAD/[place], PAD - multiple peripheral stents and aortofemoral bypass, SSS - dual-chamber pacer, diastolic CHF, HTN, HLD, DM type II, COPD. Developed palpitations, SOB and CP AM. She presented to the ER when her symptoms persisted and she was found to be with a rapid rate that maybe sinus tachycardia with an atypical focus. Initial labs wer unremarkable. she had hypertesion on arrival. The pt is chronically anticoagulated with Xarelto. She is admitted to telemetry on a Cardizem drip. 1) AF/RVR - placed on a Cardizem drip - she is anticoagulated at the time of ad mission. After assesment by cardiology concern for symptoms being angina ( did have a [facility] 2018) feels rhythm maybe sinus tachycardia with apparent focus, EP evaluation 2) CP - history of CAD - resolved - a repeat trop is pending - cont statin, B danae, Imdur, Ranexa, Plavix. 3) PAD - cont Plavix, statin - she states she was prescribed Xarelto due to the severity of her vascular disease. 4) DM II - placed on a SSI 5) HTN - not controlled on admission - if this does not improve with Diltiazem we will add an additional agent - she can continue Metoprolol and Imdur AM 6) SSS - pacer is functional 7) COPD - no evidence of acute exacerbation - not currently treated Full code - Xarelto prophylaxis Total time for this admit including review of labs, meds, imaging, records - discussion with pt and ER attending - 40 min Results & Data Vital Signs (Past 12 Hours) Vital Signs Temp Pulse Resp BP BP Pulse Ox 02/22/19 07:05 36.7 C 83 16 144/79 H 92 02/22/19 03:43 36.8 C 81 19 159/108 H 100 02/22/19 02:00 78 131/46 L 02/22/19 01:00 69 131/65 02/22/19 00:30 69 118/69 02/22/19 00:00 36.7 C 74 18 118/69 96 02/21/19 23:45 72 126/53 L 02/21/19 23:00 78 110/80 02/21/19 22:45 75 95/54 L 02/21/19 22:15 83 116/66 02/21/19 22:00 100 H 126/60 02/21/19 21:49 117 H 150/56 H 02/21/19 21:35 131 H 126/72 02/21/19 21:24 139 H 169/95 H 02/21/19 21:15 133 H 149/85 H 02/21/19 21:13 136 H 166/84 H 02/21/19 21:09 140 H 138/118 H 02/21/19 21:06 176 H 189/91 H PG Care Time/CCT Total # of Minutes Spent Total Time Spent with Patient: Total time spent is greater than 50% in coordination of care (as documented) at patient's floor/unit and/or counseling patient:
[2019-02-22] MEDS: INSULIN ASPART 100 UNITS/ML 3 ML PEN SC SCH ×2 (08:34→12:11)
[2019-02-22] MEDS: RANOLAZINE 500 MG ER TAB PO SCH (08:36)
[2019-02-22] MEDS: GABAPENTIN 400 MG CAP PO SCH ×2 (08:37→13:27)
[2019-02-22] MEDS: POTASSIUM CHLORIDE 10 MEQ TABCR PO SCH (08:37)
[2019-02-22] MEDS: METOPROLOL TARTRATE 100 MG TAB PO SCH (08:37)
[2019-02-22] MEDS: HydrALAZINE 10 MG TAB PO SCH ×2 (08:38→13:27)
[2019-02-22] MEDS ORDERED: ISOSORBIDE MONO EXTENDED REL 30 MG TABCR PO SCH (09:00)
[2019-02-22] MEDS ORDERED: ROSUVASTATIN CALCIUM 20 MG TAB PO SCH (09:00)
[2019-02-22] MEDS ORDERED: FUROSEMIDE 40 MG TAB PO SCH (09:00)
[2019-02-22] MEDS ORDERED: RIVAROXABAN 20 MG TAB PO SCH (09:00)
[2019-02-22] MEDS ORDERED: MELOXICAM 7.5 MG TAB PO SCH (09:00)
[2019-02-22] MEDS ORDERED: CLOPIDOGREL BISULFATE 75 MG TAB PO SCH (09:00)
[2019-02-22] MEDS ORDERED: DULOXETINE HCL 60 MG CAP PO SCH (09:00)
--- NOTE | 2019-02-22 09:23 | Cardiology Progress Note ---
Date of Service February 22, 2019 Assessment & Plan (1) Tachycardia: The presenting rhythm appear to Alan focal atrial tachycardia. The regional EKG was difficult to interpret but the intracardiac EGMs clearly reveal 1-1 AV conduction with notable irregularity and different morphologies of the atrial EGM. He does have a history of moderate COPD in this rhythm is commonly associated with primary lung disease. As result, she does not require systemic anticoagulation for stroke prophylaxis due to this rhythm. However, it appears that she is chronically anticoagulated in any event. Echocardiography does reveal left atrial enlargement. This would be a substrate for development of atrial fibrillation and in the setting of her multifocal atrial tachycardia, I would not be surprised if at some point she developed atrial fibrillation as well. This appears to been the 1st episode of significant arrhythmia. She has had other brief episodes of SVT on her pacemaker monitoring, but the overall atrial rates were not as high. I would agree with adoption of a rate control strategy. I would send her home on diltiazem 240 milligrams extended release daily. She appears to have adequate blood pressure to tolerate this medication. While this will not likely eliminate recurrent episodes of atrial arrhythmia, he hopefully will provide some element of rate control, reducing her symptoms and risk for ischemia. Alternatively, antiarrhythmic medication could be employed. However, she does have a history of coronary disease and this would limit our options. (2) CAD (coronary artery disease): She did have an episode of chest discomfort today but this was in the setting of tachycardia. She also has been hypertensive while here for the most part. She has occluded RCA with collaterals. This likely represented angina. Will continue with aggressive secondary prevention. (3) S/P cardiac pacemaker procedure: Interrogation done as noted above. Pacemaker placed for sick sinus syndrome. Initial symptoms included syncope. No recurrent syncope. (4) Paroxysmal SVT (supraventricular tachycardia): EGMs are not currently available for review. Possibly this was the same rhythm although with her extremely high heart rates at presentation it is very possible that were different. (5) HTN (hypertension): Still slightly elevated. I think with the addition of diltiazem we may see some improvement. I think we can get away with a higher initial dose given her robust blood pressure. Subjective This morning patient is feeling well. She has had resolution of her chest symptoms and breathing difficulty. She is no longer experiencing palpitations. She is anxious to be discharged home. Review of Systems Review of Systems: Per HPI Physical Exam Physical Exam: She is alert and oriented x3. Mood affect appear normal. She answered all questions appropriately. HEENT: Sclerae are anicteric. Pupils are equal and reactive to light and accommodation. Extraocular movements were intact. Neuro: Cranial nerves intact Lungs: Lungs are clear to auscultation bilaterally. There are no rales wheezes or rhonchi. She has normal respiratory effort without use of accessory muscles. There is normal pulmonary excursion with slightly prolonged expiratory phase. Cardiac: The rhythm was regular. S1 and S2 were normal. There are no murmurs on examination. The PMI was not markedly displaced on palpation. Abdomen: The abdomen was soft and nontender. Extremities: Patient has bilateral radial pulses that are equal in intensity. There is no evidence cyanosis or clubbing. There was no evidence of significant peripheral edema bilaterally. Skin: There are no rashes noted on examination today. Results & Data Vital Signs (Past 12 Hours) Vital Signs Temp Pulse Resp BP BP Pulse Ox 02/22/19 07:05 36.7 C 83 16 144/79 H 92 02/22/19 03:43 36.8 C 81 19 159/108 H 100 02/22/19 02:00 78 131/46 L 02/22/19 01:00 69 131/65 02/22/19 00:30 69 118/69 02/22/19 00:00 36.7 C 74 18 118/69 96 02/21/19 23:45 72 126/53 L 02/21/19 23:00 78 110/80 02/21/19 22:45 75 95/54 L 02/21/19 22:15 83 116/66 02/21/19 22:00 100 H 126/60 02/21/19 21:49 117 H 150/56 H 02/21/19 21:35 131 H 126/72 02/21/19 21:24 139 H 169/95 H Laboratory Results Abnormal Lab Results 02/21/19 02/21/19 02/21/19 13:27 13:27 13:27 WBC 11.59 H RBC 4.87 Hgb 14.2 Hct 42.0 MCV 86.2 MCH 29.2 MCHC 33.8 RDW Std Deviation 51.3 H RDW Coeff of Tosin 16.1 H Plt Count 169 MPV 12.6 H Immature Gran % (Auto) 0.3 Neut % (Auto) 77.9 Lymph % (Auto) 11.4 Burnett % (Auto) 9.2 Eos % (Auto) 0.9 Baso % (Auto) 0.3 Immature Gran # (Auto) 0.04 H Neut # (Auto) 9.01 H Lymph # (Auto) 1.32 Burnett # (Auto) 1.07 H Eos # (Auto) 0.11 Baso # (Auto) 0.04 PT 10.5 INR 1.0 APTT 29.8 PTT Ratio 1.1 Sodium 137 Potassium 3.5 Chloride 103 Carbon Dioxide 23 Anion Gap 11.0 BUN 17 Creatinine 1.25 H Est Cr Clr Drug Dosing 51.7 Est GFR ( Amer) 52.6 Est GFR (Non-Af Amer) 45.4 BUN/Creatinine Ratio 13.4 Glucose 219 H POC Glucose Calcium 9.1 Phosphorus Magnesium 1.6 L Total Bilirubin 0.4 AST 15 ALT 18 Alkaline Phosphatase 146 H Troponin I 0.019 NT-Pro-B Natriuret Pep 852 Total Protein 7.3 Albumin 3.7 Globulin 3.6 Albumin/Globulin Ratio 1.0 Lipase 101 TSH 2.380 Urine Color Urine Appearance Urine pH Ur Specific [place] Urine Protein Urine Glucose (UA) Urine Ketones Urine Blood Urine Nitrite Urine Bilirubin Urine Urobilinogen Ur Leukocyte Esterase Urine WBC (Auto) Urine RBC (Auto) U Hyaline Cast (Auto) U Epithel Cells (Auto) Urine Bacteria (Auto) 02/21/19 02/21/19 02/21/19 14:05 16:55 20:04 WBC RBC Hgb Hct MCV MCH MCHC RDW Std Deviation RDW Coeff of Tosin Plt Count MPV Immature Gran % (Auto) Neut % (Auto) Lymph % (Auto) Burnett % (Auto) Eos % (Auto) Baso % (Auto) Immature Gran # (Auto) Neut # (Auto) Lymph # (Auto) Burnett # (Auto) Eos # (Auto) Baso # (Auto) PT INR APTT PTT Ratio Sodium Potassium Chloride Carbon Dioxide Anion Gap BUN Creatinine Est Cr Clr Drug Dosing Est GFR ( Amer) Est GFR (Non-Af Amer) BUN/Creatinine Ratio Glucose POC Glucose 226 H Calcium Phosphorus Magnesium Total Bilirubin AST ALT Alkaline Phosphatase Troponin I 0.069 H* NT-Pro-B Natriuret Pep Total Protein Albumin Globulin Albumin/Globulin Ratio Lipase TSH Urine Color Yellow Urine Appearance Clear Urine pH 5.5 Ur Specific [place] 1.013 Urine Protein 2+ H Urine Glucose (UA) 2+ H Urine Ketones Negative Urine Blood Trace H Urine Nitrite Negative Urine Bilirubin Negative Urine Urobilinogen Negative Ur Leukocyte Esterase 1+ H Urine WBC (Auto) 10-30 H Urine RBC (Auto) 0-4 U Hyaline Cast (Auto) 0 U Epithel Cells (Auto) 0-5 Urine Bacteria (Auto) 3+ H 02/21/19 02/21/19 02/21/19 20:40 21:06 21:06 WBC 15.76 H RBC 4.97 Hgb 14.5 Hct 43.2 MCV 86.9 MCH 29.2 MCHC 33.6 RDW Std Deviation 51.9 H RDW Coeff of Tosin 16.4 H Plt Count 239 MPV 13.4 H Immature Gran % (Auto) 0.4 Neut % (Auto) 61.9 Lymph % (Auto) 24.6 Burnett % (Auto) 12.0 Eos % (Auto) 0.8 Baso % (Auto) 0.3 Immature Gran # (Auto) 0.07 H Neut # (Auto) 9.76 H Lymph # (Auto) 3.88 H Burnett # (Auto) 1.89 H Eos # (Auto) 0.12 Baso # (Auto) 0.04 PT INR APTT PTT Ratio Sodium 138 Potassium 3.3 L Chloride 103 Carbon Dioxide 22 Anion Gap 14.0 H BUN 18 Creatinine 1.41 H Est Cr Clr Drug Dosing 45.8 Est GFR ( Amer) 45.5 Est GFR (Non-Af Amer) 39.3 BUN/Creatinine Ratio 12.5 Glucose 182 H POC Glucose 154 H Calcium 9.2 Phosphorus 2.3 L Magnesium 2.0 Total Bilirubin AST ALT Alkaline Phosphatase Troponin I 0.073 H* NT-Pro-B Natriuret Pep Total Protein Albumin Globulin Albumin/Globulin Ratio Lipase TSH Urine Color Urine Appearance Urine pH Ur Specific [place] Urine Protein Urine Glucose (UA) Urine Ketones Urine Blood Urine Nitrite Urine Bilirubin Urine Urobilinogen Ur Leukocyte Esterase Urine WBC (Auto) Urine RBC (Auto) U Hyaline Cast (Auto) U Epithel Cells (Auto) Urine Bacteria (Auto) 02/22/19 02/22/19 05:22 07:16 WBC RBC Hgb Hct MCV MCH MCHC RDW Std Deviation RDW Coeff of Tosin Plt Count MPV Immature Gran % (Auto) Neut % (Auto) Lymph % (Auto) Burnett % (Auto) Eos % (Auto) Baso % (Auto) Immature Gran # (Auto) Neut # (Auto) Lymph # (Auto) Burnett # (Auto) Eos # (Auto) Baso # (Auto) PT INR APTT PTT Ratio Sodium Potassium Chloride Carbon Dioxide Anion Gap BUN Creatinine 1.15 Est Cr Clr Drug Dosing 56.1 Est GFR ( Amer) 58.2 Est GFR (Non-Af Amer) 50.2 BUN/Creatinine Ratio Glucose POC Glucose 167 H Calcium Phosphorus Magnesium Total Bilirubin AST ALT Alkaline Phosphatase Troponin I NT-Pro-B Natriuret Pep Total Protein Albumin Globulin Albumin/Globulin Ratio Lipase TSH Urine Color Urine Appearance Urine pH Ur Specific [place] Urine Protein Urine Glucose (UA) Urine Ketones Urine Blood Urine Nitrite Urine Bilirubin Urine Urobilinogen Ur Leukocyte Esterase Urine WBC (Auto) Urine RBC (Auto) U Hyaline Cast (Auto) U Epithel Cells (Auto) Urine Bacteria (Auto) Diagnostic Findings Echocardiogram performed today which revealed normal systolic function and no significant valvular heart disease. She did have biatrial dilation. ECG Additional Comments: Normal sinus rhythm
[2019-02-22 09:38] LABS: BUN Creatinine Ratio 13.4 (10-20); Calcium 8.9 mg/dl (8.5-10.1); Creatinine Clr Calc Pharmacy 57.1 ml/min; Est GFR (African American) 59.5; Est GFR (Non-African American) 51.3; Potassium 4.4 mmol/L (3.5-5.1)
[2019-02-22] MEDS ORDERED: dilTIAZem HCL 240 MG CAPCR PO SCH (11:30)
--- NOTE | 2019-02-22 13:05 | Discharge Summary ---
Date of Service February 22, 2019 Admission HPI Per Admitting Provider 62 y/o F Hx of CAD/PA, PAD - multiple peripheral stents and aortofemoral bypass, SSS - dual-chamber pacer, diastolic CHF, HTN, HLD, DM type II, COPD. Developed palpitations, SOB and CP AM. She presented to the ER when her symptoms persisted and she was found to be in AF. Initial labs wer unremarkable. Her pacer was interrogated in the ER and confirmed atrial fib. Her SBP on arrival was in the 190s. The pt is anticoagulated with Xarelto. She is admitted to telemetry on a Cardizem drip. 1) Chronic diastolic CHF - echo 2017 showing EF 65% 2) CAD - NSTEMI 05/2018 - CAD with collateral supply on cath - no stents placed - medical management includes Ranexa 3) PAD - multiple peripheral stents, BL aortofemoral bypass, aortic graft for mesenteric ischemia. 4) COPD 5) HTN 6) HLD 7) Sick sinus syndrome - pacer 8) History of SVTs 9) DM II 10) Obese Surgical: 1) Multiple peripheral stents 2) Aortofemoral bypass 3) Cataracts 4) Cholecystectomy 5) Pacer 2014 Social: Quit smoking 01/11/2019. Does not drink. 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 Family: Both parents - history of vacular disease Principal Diagnosis multifocal arial tachycardia with rapid rate abnormal ua on presentation Discharge Exam Eyes no conjunctival abnormality and no scleral abnormality Neck normal visual inspection and trachea midline Respiratory normal respiratory effort; no respiratory distress Auscultation: lungs clear to auscultation bilaterally Cardiovascular Rate/Rhythm: regular rhythm (rate controlled after cardizem) Gastrointestinal (Abdomen) normal bowel sounds, soft, nontender, no hepatosplenomegaly Musculoskeletal no cyanosis or clubbing, extremities motor strength /5 Discharge Data Allergies Allergy/AdvReac Type Severity Reaction Status Date / Time No Known Drug Allergies Allergy Verified 02/21/19 13:44 Consultations 02/21/19 14:18 ED Decision to Admit Stat 02/21/19 16:35 Consult Cardiology Routine 02/22/19 12:31 Consult [facility] operations liaison Routine Hospital Course (1) Atrial fibrillation with rapid ventricular response: 62 y/o F Hx of CAD/PA, PAD - multiple peripheral stents and aortofemoral bypass, SSS - dual-chamber pacer, diastolic CHF, HTN, HLD, DM type II, COPD. Developed palpitations, SOB and CP AM. She presented to the ER when her symptoms persisted and she was found to be with a rapid rate that multifocal atrial tachycardia with an atypical focus. Initial labs wer unremarkable. The pt is chronically anticoagulated with Xarelto. 1) Multifocal atrial tachycardia with demand ischemia, cardiology feels that this should be controlled by cardizem extended release, dose started prior to leaving, and close follow up with cardiology EP as outp, does not require Anticoagulation for atrial rhythm, but will continue for general vascular disease and previous interventions 2) CP - history of CAD - resolved - a repeat trop is pending - cont statin, B danae, Imdur, Ranexa, Plavix. 3) PAD - cont Plavix, statin - she states she was prescribed Xarelto due to the severity of her vascular disease. 4) DM II - placed on a SSI 5) HTN - improved after cardizem - holding amlodipine and continue Metoprolol and Imdur AM 6) SSS - pacer is functional 7) COPD - no evidence of acute exacerbation - not currently treated Full code - Xarelto prophylaxis Total Time Total Time Spent Total Time Spent (In Minutes): greater than 30 minutes were required to prepare discharge Discharge Plan Discharge Items Patient Disposition: Home - Self-Care Reason For Visit: RAPID AF Discharge Diagnosis: multifocal atrial tachycardia Condition: Fair Discharge Goals: Decrease discomfort and Diagnostic testing Activity: Resume your previous activity Non-emergency contact: Primary Care Provider Call non-emergency contact if: you have any medication questions Follow-up/Referrals: Glenny Correa CRNP [Primary Care Provider] - Diet: Carb Consistent or DM2 Addtl Provider Instructions: please follow up with cardiology this week Prescriptions: New diltiazem HCl 240 mg Capsule,Extended Release 24hr 240 mg PO QAM Qty: 30 RF: 4 Continued nitroglycerin 0.4 mg tablet, sublingual 0.4 [address] .[address] 1 TABLET UNDER Qty: 1 RF: 0 metoprolol tartrate 100 mg Tablet 100 mg PO BID RF: 0 clopidogrel [Plavix] 75 mg Tablet 75 mg PO QAM RF: 0 lorazepam 0.5 mg Tablet 0.5 mg PO TID PRN (Reason: Anxiety) RF: 0 metformin 1,000 mg Tablet 1,000 mg PO BID RF: 0 duloxetine 60 mg Capsule,Delayed Release(Dr/Ec) 60 mg PO QAM RF: 0 rosuvastatin 40 mg Tablet 40 mg PO QAM RF: 0 Januvia 100 mg Tablet 100 mg PO QAM RF: 0 hydralazine 10 mg Tablet 10 mg PO TID Qty: 90 RF: 2 isosorbide mononitrate 30 mg Tablet Extended Release 24 Hr 30 mg PO QAM Qty: 30 RF: 2 pramipexole 0.25 mg Tablet 0.25 mg PO HS Qty: 30 RF: 2 ranolazine [Ranexa] 500 mg Tablet Extended Release 12 Hr 500 mg PO BID Qty: 60 RF: 2 gabapentin 400 mg Capsule 400 mg PO QID RF: 0 Xarelto 20 mg Tablet 20 mg PO QAM RF: 0 Medical Marijuana 1 dose Inhalation DAILY PRN (Reason: Pain) RF: 0 furosemide [Lasix] 40 mg tablet 40 mg PO DAILY RF: 0 potassium chloride 10 mEq tablet extended release 10 meq PO BID RF: 0 baclofen 10 mg tablet 10 mg PO HS RF: 0 meloxicam [Mobic] 15 mg tablet 15 mg PO DAILY RF: 0 Discontinued amlodipine 5 mg Tablet 10 mg PO QAM Qty: 60 RF: 3 Stand-Alone Forms: [facility] Discharge Orders: Discharge Order (Routine); Ordered 02/22/19 Ordered By: Carlos Powell Admission Data Admit Date/Time: 02/21/19 15:11 Attending Provider: Carlos Powell Admit Provider: Santana Russell Primary Care Provider: Glenny Correa Other Providers: Gen Uriostegui ; Santana Russell Service: Telemetry
[2019-02-22] MEDS ORDERED: MAGNESIUM SULFATE 1GM / D5W BAG IV ONE (14:49)
== END 2019-02-22 14:50 | disposition home or self-care (01) | DRG 309 ==
LOC: ED 12:34 → 2E 15:11 → SUATTDRO 15:11 → 2E 16:15

== ENCOUNTER 2019-05-09 13:43 | Inpatient (IN) ==
[2019-05-09] MEDS ORDERED: SODIUM CHLORIDE 0.9% 500 ML IV SCH (14:00)
--- NOTE | 2019-05-09 14:25 | XRay Report ---
XR chest 1V portable CLINICAL HISTORY: 63 years-old Female presenting with weakness. TECHNIQUE: Portable upright AP view of the chest was obtained. COMPARISON: 02/21/2019. FINDINGS: Left subclavian pacer with leads in the right atrium and right ventricular apex. Vascular stent in th e region of the left common carotid artery. Atherosclerosis of the aortic arch. Cardiac silhouette to p normal in size. Mild pulmonary vascular prominence. No focal opacity. No large effusion or pneumoth orax. Degenerative changes of the thoracic spine. Upper abdomen normal. IMPRESSION: 1. No acute cardiopulmonary disease. Electronically signed by: Christ Sultana M.D. 05/09/2019 2:24 PM
[2019-05-09 14:27] LABS: Basophils # (auto) 0.03 K/uL (0-0.2); Basophils % (auto) 0.2 %; Eosinophils # (auto) 0.08 K/uL (0-0.5); Eosinophils % (auto) 0.6 %; Hematocrit (blood only) 35.1 % (37-47); Hemoglobin 12.4 g/dL (12.0-16.0); Immature Granulocytes # (auto) 0.05 K/uL (0.00-0.02); Immature Granulocytes % (auto) 0.4 %; Lymphocytes # (auto) 1.95 K/uL (1.2-3.4); Lymphocytes % (auto) 13.9 %; Mean Corpuscular Hemoglobin 29.7 pg (25-34); Mean Corpuscular Hgb Conc 35.3 g/dL (32-36); Mean Corpuscular Volume 84.2 fL (80-100); Mean Platelet Volume 11.9 fL (7.4-10.4); Monocytes # (auto) 1.18 K/uL (0.11-0.59); Monocytes % (auto) 8.4 %; Neutrophils # (auto) 10.71 K/uL (1.4-6.5); Neutrophils % (auto) 76.5 %; Platelet Count 210 K/uL (130-400); RDW Standard Deviation 42.9 fL (36.4-46.3); Red Blood Count 4.17 M/uL (4.2-5.4)
[2019-05-09 14:29] LABS: Base Excess VBG 8.6 mEq/L; Oxygen Saturation VBG 63.1 %; pH VBG 7.44 (7.36-7.41)
--- NOTE | 2019-05-09 14:32 | CT Scan Report ---
CT head/brain wo con CLINICAL HISTORY: 63 years-old Female with weakness. Acute weakness TECHNIQUE: Multiple axial CT images of the head were obtained without contrast. A dose lowering tech nique was utilized adhering to the principles of ALARA. CT DOSE: 655.73 mGy.cm COMPARISON: Head CT 05/22/2018. FINDINGS: No acute intracranial hemorrhage, midline shift, intracranial mass, hydrocephalus, territorial ischem ia or abnormal extra-axial collection. Mild age-related involutional changes. Patchy white matter hyp odensities redemonstrated suggestive of probable chronic microvascular ischemic changes. Cerebral vas cular calcifications are noted. Remote appearing lacunar infarct of the left caudate nucleus. The calvarium is intact. Trace mastoid effusions. Severe near complete opacification of the right ma xillary sinus with moderate mucosal thickening of the ethmoid air cells. Prior bilateral cataract rep air. The soft tissues are within normal limits. IMPRESSION: No acute intracranial abnormality. The above report was generated using voice recognition software. It may contain grammatical, syntax o r spelling errors. Electronically signed by: Shivam De Los Santos M.D. 05/09/2019 2:30 PM
[2019-05-09 14:47] LABS: Blood Urea Nitrogen 26 mg/dl (7-18); Carbon Dioxide 33 mmol/L (21-32); Chloride 78 mmol/L (98-107); Est GFR (African American) 40.6; Potassium 3.1 mmol/L (3.5-5.1); Sodium 122 mmol/L (136-145)
[2019-05-09 14:48] LABS: Alanine Aminotransferase 19 U/L (12-78); Albumin Level 3.2 gm/dl (3.4-5.0); Aspartate Aminotransferase 22 U/L (15-37); BUN Creatinine Ratio 16.6 (10-20); Calcium 9.2 mg/dl (8.5-10.1); Creatinine Clr Calc Pharmacy 43.9 ml/min; Glucose 130 mg/dl (70-99); Magnesium 1.7 mg/dl (1.8-2.4)
[2019-05-09 14:49] LABS: INR 1.6 (0.9-1.1); Partial Thromboplastin Ratio 1.8; Prothrombin Time 15.5 Seconds (9.0-12.0)
[2019-05-09 14:54] LABS: Partial Thromboplastin Time 48.5 Seconds (21.0-31.0)
[2019-05-09 14:58] LABS: Alkaline Phosphatase 125 U/L (45-117); Bilirubin,Total 0.5 mg/dl (0.2-1); Creatine Kinase 86 U/L (26-192); Globulin 3.2 gm/dl (2.5-4.0); Total Protein 6.4 gm/dl (6.4-8.2); Troponin I < 0.015 ng/ml (0-0.045)
[2019-05-09 15:10] LABS: Lyme Ab IgG w/WB Rflx Negative (Negative); Lyme Ab IgM w/WB Rflx Negative (Negative)
[2019-05-09 15:12] LABS: Appearance Urine Cloudy (Clear); Bacteria Urine Automated 1+ (Negative); Bilirubin Urine Negative (Negative); Blood Urine Negative (Negative); Color Urine Yellow; Glucose Urine UA Negative (Negative); Ketones Urine Negative (Negative); Leukocyte Esterase Urine 1+ (Negative); Nitrite Urine Positive (Negative); Protein Urine Negative (Negative); Specific Gravity Urine 1.012 (1.000-1.030); Urobilinogen Urine Negative (Negative); pH Urine 6.5 (4.5-7.5)
[2019-05-09] MEDS ORDERED: cefTRIAXone SODIUM 1,000 MG/50 ML BAG IV STA (16:33)
[2019-05-09] MEDS ORDERED: POTASSIUM CHLORIDE / WTR 10 MEQ/100 ML PLCT IV ONE (16:33)
[2019-05-09] MEDS ORDERED: POTASSIUM CHLORIDE 10 MEQ TABCR PO STA (16:33)
[2019-05-09] MEDS ORDERED: SODIUM CHLORIDE 0.9% 1000ML 500 ML IV ONE (16:33)
--- NOTE | 2019-05-09 17:02 | Emergency Department Note ---
Entered by Abbi Sheldon acting as a scribe for Mikal Warren DO History of Present Illness General Chief complaint: Weakness Stated complaint: WEAK,DIZZINESS,VOMITING Time Seen by Provider: 05/09/19 13:49 Source: patient and family History of Present Illness Onset (ago): day(s) (yesterday) Location: lower extremity Pain Consistency: + other (worsening) Maximum Pain Intensity: 6 Quality: + other (weakness) Associated symptoms: + denies other symptoms (LOC, drinking less than normal), + nausea/vomiting (vomiting), + shortness of breath and + other (leg swelling, unsteady on feet, forgetful, dizziness, back pain, urinary frequency, slow speech, slurred speech); no chest pain, no fever/chills (fever) and no loss of a ppetite The patient is a 63 year old female who presents to the Emergency Room with complaints of worsening weakness starting yesterday. Per the patients sister, she has not been doing well for about a month. She states that the patient was having increased leg swelling and shortness of breath, but refused to wear her O2 at home. She states that at some points her O2 saturation was in the 70s. She reports that the patient has also been forgetful and unsteady on her feet. She states that she refuses to check her blood sugars as well. She reports that last week her leg swelling got so bad she finally went to the PCP who gave her 3 days of Metolazone that she took last weekend. She states that it helped clear up her sisters leg swelling. The patients sister states that yesterday, the patient became increasingly unsteady on her feet. The patient states that since yeste she has felt dizzy and unsteady on her feet. She states that a few times she almost fell, but was always able to catch herself. The patient complains of vomiting, urinary frequency, and back pain. She notes that she is on Xarelto. The patients sister complains of the patient having slow and slightly slurred speech. The patient denies chest pain, fever, hitting her head, LOC, a history of liver problems, recent falls, loss of appetite, and drinking less than normal. Home Medications Home Medications Medication Instructions Recorded Confirmed Type clopidogrel [Plavix] 75 mg PO QAM 05/13/18 05/09/19 History duloxetine 60 mg PO QAM 05/13/18 05/09/19 History metformin 1,000 mg PO BID 05/13/18 05/09/19 History metoprolol tartrate 100 mg PO BID 05/13/18 05/09/19 History rosuvastatin 40 mg PO QAM 05/13/18 05/09/19 History Xarelto 20 mg PO QAM 10/11/18 05/09/19 History furosemide [Lasix] 40 mg PO DAILY 11/19/18 05/09/19 History meloxicam [Mobic] 15 mg PO QAM 11/19/18 05/09/19 History nitroglycerin 0.4 mg sublingual 0.4 mg [address] .PL[address] 1 TABLET UNDER #1 02/20/19 05/09/19 History tablet tab diltiazem HCl 240 mg PO QAM #30 cap 02/22/19 05/09/19 Rx albuterol sulfate HFA 90 2 puffs INH Q6H PRN #8 gm 02/24/19 05/09/19 Rx mcg/actuation aerosol inhaler gabapentin 400 mg capsule 400 mg PO TID cap 02/24/19 05/09/19 History ipratropium-albuterol 0.5 mg-3 3 ml INH Q4H PRN #90 ml 02/24/19 05/09/19 Rx mg(2.5 mg base)/3 mL nebulization soln lorazepam 0.5 mg tablet 0.5 mg PO BID PRN tab 02/24/19 05/09/19 History pramipexole 0.25 mg tablet 0.75 mg PO HS #30 tab 02/24/19 05/09/19 Rx tiotropium bromide 2.5 2 puffs INH DAILY #4 gm 02/24/19 05/09/19 Rx mcg/actuation mist for inhalation glimepiride 1 mg tablet 1 mg PO QAM #90 tab 02/27/19 05/09/19 Rx hydralazine 10 mg tablet 10 mg PO TID #270 tab 03/10/19 05/09/19 Rx potassium chloride ER 10 mEq 10 meq PO BID #180 tab 03/10/19 05/09/19 Rx tablet,extended release sitagliptin 100 mg tablet 100 mg PO DAILY #90 tab 03/10/19 05/09/19 Rx furosemide 20 mg tablet 20 mg PO .COMPLEX #30 tab 03/20/19 05/09/19 Rx isosorbide mononitrate ER 30 mg 30 mg PO DAILY #90 tab 03/27/19 05/09/19 Rx tablet,extended release 24 hr ranolazine ER 500 mg 500 mg PO BID #180 tab 03/27/19 05/09/19 Rx tablet,extended release,12 hr metolazone 2.5 mg tablet 2.5 mg PO DAILY #14 tab 04/29/19 05/09/19 Rx Medical Marijuana 0 ea PO UD 05/09/19 05/09/19 History Allergies Allergy/AdvReac Type Severity Reaction Status Date / Time No Known Drug Allergies Allergy Verified 05/09/19 14:02 Past Med/Surg History Medical History COPD (chronic obstructive pulmonary disease) DM II (diabetes mellitus, type II), controlled Systolic and diastolic CHF, chronic Hypomagnesemia (Acute) Combined systolic and diastolic heart failure Depression with anxiety Dyspnea Hypoxia Left ventricular diastolic dysfunction Tachycardia (Acute) Restless legs Obesity Nicotine dependence NSTEMI (non-ST elevated myocardial infarction) Mild cognitive impairment Diabetes mellitus type 2, uncontrolled NIDDM CAD (coronary artery disease) SSS (sick sinus syndrome) Paroxysmal SVT (supraventricular tachycardia) PAD (peripheral artery disease) Hx of non-ST elevation myocardial infarction (NSTEMI) HLD (hyperlipidemia) HTN (hypertension) Hypertension (Acute) Anxiety Bulging discs Chronic back pain Chronic obstructive pulmonary disease Degenerative disc disease Depression Diabetic nephropathy Hyperlipidemia Incisional hernia Myocardial Infarction 05/2018 - [facility] Pacemaker 05/2015 - Sick sinus syndrome - Last checked 02/2019 ([facility]) - [employer] Rheumatoid arthritis Sick sinus syndrome Spinal stenosis Surgical History S/P cardiac pacemaker procedure History of cardiac cath 05/2018 - [place] - NO STENTS/ANGIOPLASTY - COLLATERAL CIRCULATION - FOLLOWS W/ DR. ERWIN History of cataract surgery BILATERAL History of cholecystectomy History of intravascular stent placement Multiple stents in bilateral legs, left subclavian, left aortic mesenteric bypass, left carotid endarterectomy History of oral surgery History of tonsillectomy History of tooth extraction Family History Mother , Heart Disease Ruptured Appendix No problems noted. Father , with Vascular and Colon Can No problems noted. Sister No problems noted. Grandfather (Maternal) Family history of diabetes mellitus Social History Preferred Language: Yoruba Communication Ability: Effective Visual Impairment: No Limitations Chemical Pumper Required: No Beliefs That Will Affect Care: None Current Living Situation: Family Feels Safe at Home: Yes Smoking Status: Former smoker Tobacco Type: cigarettes and e-cigarettes ; Cigarettes Per Day: VAPES + 2 CIGS PER DAY ; Second Hand Exposure: Yes ; Hx Alcohol Use: Yes Alcohol type: beer Hx Substance Use: Yes substance use type: marijuana Substance Use Type Other:: uses vape for prescibed medical marijuana Last Used Substance: Days (ago) Review of Systems See HPI for pertinent positives & negatives. and A total of 10 systems reviewed and were otherwise negative Physical Exam Vital Signs Vital Signs - 24 hr 05/09/19 13:56 05/09/19 14:10 05/09/19 15:01 Temperature 37 C Temperature Source Oral Sepsis Recent Fever Within 48 Hours No Sepsis New/Unexplained Change in Mental Status No Sepsis Action Taken by Nursing No Action Required Pulse Rate 87 Pulse Rate [Apical] 65 Pulse Rate from SpO2 Sensor Respiratory Rate 18 17 Blood Pressure 131/84 Blood Pressure [Left Arm] 111/73 Blood Pressure Mean 99 Blood Pressure Mean [Left Arm] 85 Pulse Oximetry 92 96 93 Oxygen Delivery Method Room Air Nasal Cannula Nasal Cannula Oxygen Flow Rate 2 2 05/09/19 16:01 05/09/19 16:30 05/09/19 17:00 Temperature Temperature Source Sepsis Recent Fever Within 48 Hours Sepsis New/Unexplained Change in Mental Status Sepsis Action Taken by Nursing Pulse Rate 60 62 75 Pulse Rate [Apical] Pulse Rate from SpO2 Sensor 60 60 60 Respiratory Rate 19 16 13 Blood Pressure 105/76 112/56 L Blood Pressure [Left Arm] Blood Pressure Mean 85 74 Blood Pressure Mean [Left Arm] Pulse Oximetry 97 94 95 Oxygen Delivery Method Nasal Cannula Nasal Cannula Nasal Cannula Oxygen Flow Rate 2 2 2 05/09/19 17:31 Temperature Temperature Source Sepsis Recent Fever Within 48 Hours Sepsis New/Unexplained Change in Mental Status Sepsis Action Taken by Nursing Pulse Rate 60 Pulse Rate [Apical] Pulse Rate from SpO2 Sensor 60 Respiratory Rate 19 Blood Pressure 111/56 L Blood Pressure [Left Arm] Blood Pressure Mean 74 Blood Pressure Mean [Left Arm] Pulse Oximetry 98 Oxygen Delivery Method Nasal Cannula Oxygen Flow Rate 2 GENERAL: Patient is awakens to verbal commands, but slow to answer questions. She follows commands appropriately, but slowly. EYES: The conjunctivae are clear. The pupils are round and reactive. EARS, NOSE, MOUTH AND THROAT: The nose is without any evidence of any deformity. Mucous membranes are dry.Tongue is midline NECK: The neck is nontender and supple. RESPIRATORY: Normal respiratory effort is noted. Diminished breath sounds throughout. No rhonchi or wheezing. No tachypnea appreciated. CARDIOVASCULAR: Regular rate and rhythm noted. There no murmurs rubs or gallops normal S1 normal S2 GASTROINTESTINAL: The abdomen is soft. Bowel sounds are present in all quadrants. Abdomen is nontender. MUSCULOSKELETAL/EXTREMITIES: There is no evidence of gross deformity. Full range of motion is noted in the hips and shoulders. SKIN: Warm and dry. Trace pedal edema noted. Pulses symmetric in both feet.There is no obvious evidence of any rash. There are no petechiae, pallor or cyanosis noted. NEUROLOGIC: Oriented to person, place, and situation. Strength is symmetric. There was no drift. Speech was pressured and slurred. Course 1348: Past medical records reviewed. The patient was evaluated in room A10. A complete history and physical exam was performed. 1642: Upon reevaluation, the patient was resting comfortably. I discussed findings and results with her and her family. They verbalized agreement of the treatment plan. 1650: I discussed the patient's case with [facility]. She will evaluate the patient for further management. Consultations Consultation #1: I discussed the patient's case with Dr[facility]. She will evaluate the patient for further management. Time: 16:50 Administered Medications Discontinued Medications Sodium Chloride (Nss) 500 mls @ 999 mls/hr IV .Q31M ROBYN Stop: 05/09/19 14:30 Last Infusion: 05/09/19 14:47 Dose: 0 mls/hr Documented by: [id number] Admin: 05/09/19 14:15 Dose: 999 mls/hr Documented by: [id number] Sodium Chloride (Nss 1000ml) 500 mls @ 999 mls/hr IV .Q31M ONE Stop: 05/09/19 17:03 Last Admin: 05/09/19 17:52 Dose: 999 mls/hr Documented by: [id number] Potassium Chloride (K Rodrigo / Wtr) 10 meq in 100 mls @ 100 mls/hr IV ONE ONE Stop: 05/09/19 17:32 Last Admin: 05/09/19 17:54 Dose: 100 mls/hr Documented by: [id number] Ceftriaxone Sodium (Rocephin) 1,000 mg in 50 mls @ 100 mls/hr IV NOW STA Stop: 05/09/19 17:02 Last Admin: 05/09/19 17:56 Dose: 100 mls/hr Documented by: [id number] Potassium Chloride (Klor-Con M10) 10 meq PO NOW STA Stop: 05/09/19 16:34 Last Admin: 05/09/19 17:49 Dose: 10 meq Documented by: [id number] Medical Decision Making Differential Diagnosis Differential Diagnosis includes but is not limited to dehydration, stroke, anemia, hypoglycemia, hyponatremia, hypernatremia, urinary tract infection, pneumonia, bronchitis, sepsis, gastroenteritis, additional abdominal pathology, metabolic abnormalities and infections. Medical Records Attestation: I reviewed the patient's medical records. Home Medications Current Medication List: was personally reviewed by me Laboratory Data Attestation: I reviewed the patient's lab results. Result diagrams: 05/09/19 14:10 05/09/19 14:10 Lab Results 05/09/19 05/09/19 05/09/19 Range/Units 13:55 14:10 14:10 WBC 14.00 H (4.8-10.8) K/uL RBC 4.17 L (4.2-5.4) M/uL Hgb 12.4 (12.0-16.0) g/dL Hct 35.1 L (37-47) % MCV 84.2 (80-100) fL MCH 29.7 (25-34) pg MCHC 35.3 (32-36) g/dL RDW Std Deviation 42.9 (36.4-46.3) fL RDW Coeff of Tosin 14.0 (11.5-14.5) % Plt Count 210 (130-400) K/uL MPV 11.9 H (7.4-10.4) fL Immature Gran % (Auto) 0.4 % Neut % (Auto) 76.5 % Lymph % (Auto) 13.9 % [place] % (Auto) 8.4 % Eos % (Auto) 0.6 % Baso % (Auto) 0.2 % Immature Gran # (Auto) 0.05 H (0.00-0.02) K/uL Neut # (Auto) 10.71 H (1.4-6.5) K/uL Lymph # (Auto) 1.95 (1.2-3.4) K/uL [place] # (Auto) 1.18 H (0.11-0.59) K/uL Eos # (Auto) 0.08 (0-0.5) K/uL Baso # (Auto) 0.03 (0-0.2) K/uL PT 15.5 H (9.0-12.0) Seconds INR 1.6 H (0.9-1.1) APTT 48.5 H* (21.0-31.0) Seconds PTT Ratio 1.8 VBG pH (7.36-7.41) VBG pCO2 (38-50) mmHg VBG pO2 mmHg VBG HCO3 mmol/L VBG O2 Saturation % VBG Base Excess mEq/L Barometric Pressure mm/Hg Sodium (136-145) mmol/L Potassium (3.5-5.1) mmol/L Chloride (98-107) mmol/L Carbon Dioxide (21-32) mmol/L Anion Gap (3-11) BUN (7-18) mg/dl Creatinine (0.6-1.2) mg/dl Est Cr Clr Drug Dosing ml/min Est GFR ( Amer) Est GFR (Non-Af Amer) BUN/Creatinine Ratio (10-20) Glucose (70-99) mg/dl POC Glucose 136 H (70-99) Osmolality (280-300) mOsm/kg Calcium (8.5-10.1) mg/dl Magnesium (1.8-2.4) mg/dl Total Bilirubin (0.2-1) mg/dl AST (15-37) U/L ALT (12-78) U/L Alkaline Phosphatase (45-117) U/L Total Creatine Kinase (26-192) U/L Troponin I (0-0.045) ng/ml Total Protein (6.4-8.2) gm/dl Albumin (3.4-5.0) gm/dl Globulin (2.5-4.0) gm/dl Albumin/Globulin Ratio (0.9-2) TSH (0.300-4.500) uIu/ml Urine Color Urine Appearance (Clear) Urine pH (4.5-7.5) Ur Specific [place] (1.000-1.030) Urine Protein (Negative) Urine Glucose (UA) (Negative) Urine Ketones (Negative) Urine Blood (Negative) Urine Nitrite (Negative) Urine Bilirubin (Negative) Urine Urobilinogen (Negative) Ur Leukocyte Esterase (Negative) Urine WBC (Auto) (0-5) /hpf Urine RBC (Auto) (0-4) /hpf U Hyaline Cast (Auto) (0-5) /lpf U Epithel Cells (Auto) (0-5) /lpf Urine Bacteria (Auto) (Negative) Urine Osmolality (500-800) mOsm/kg Ur Random Sodium mmol/L Lyme Disease IgG Ab (Negative) Lyme Disease IgM Ab (Negative) 05/09/19 05/09/19 05/09/19 Range/Units 14:10 14:10 14:10 WBC (4.8-10.8) K/uL RBC (4.2-5.4) M/uL Hgb (12.0-16.0) g/dL Hct (37-47) % MCV (80-100) fL MCH (25-34) pg MCHC (32-36) g/dL RDW Std Deviation (36.4-46.3) fL RDW Coeff of Tosin (11.5-14.5) % Plt Count (130-400) K/uL MPV (7.4-10.4) fL Immature Gran % (Auto) % Neut % (Auto) % Lymph % (Auto) % [place] % (Auto) % Eos % (Auto) % Baso % (Auto) % Immature Gran # (Auto) (0.00-0.02) K/uL Neut # (Auto) (1.4-6.5) K/uL Lymph # (Auto) (1.2-3.4) K/uL [place] # (Auto) (0.11-0.59) K/uL Eos # (Auto) (0-0.5) K/uL Baso # (Auto) (0-0.2) K/uL PT (9.0-12.0) Seconds INR (0.9-1.1) APTT (21.0-31.0) Seconds PTT Ratio VBG pH (7.36-7.41) VBG pCO2 (38-50) mmHg VBG pO2 mmHg VBG HCO3 mmol/L VBG O2 Saturation % VBG Base Excess mEq/L Barometric Pressure mm/Hg Sodium 122 L (136-145) mmol/L Potassium 3.1 L (3.5-5.1) mmol/L Chloride 78 L (98-107) mmol/L Carbon Dioxide 33 H (21-32) mmol/L Anion Gap 10.0 (3-11) BUN 26 H (7-18) mg/dl Creatinine 1.55 H (0.6-1.2) mg/dl Est Cr Clr Drug Dosing 43.9 ml/min Est GFR ( Amer) 40.6 Est GFR (Non-Af Amer) 35.0 BUN/Creatinine Ratio 16.6 (10-20) Glucose 130 H (70-99) mg/dl POC Glucose (70-99) Osmolality 261 L (280-300) mOsm/kg Calcium 9.2 (8.5-10.1) mg/dl Magnesium 1.7 L (1.8-2.4) mg/dl Total Bilirubin 0.5 (0.2-1) mg/dl AST 22 (15-37) U/L ALT 19 (12-78) U/L Alkaline Phosphatase 125 H (45-117) U/L Total Creatine Kinase 86 (26-192) U/L Troponin I < 0.015 (0-0.045) ng/ml Total Protein 6.4 (6.4-8.2) gm/dl Albumin 3.2 L (3.4-5.0) gm/dl Globulin 3.2 (2.5-4.0) gm/dl Albumin/Globulin Ratio 1.0 (0.9-2) TSH 1.400 (0.300-4.500) uIu/ml Urine Color Urine Appearance (Clear) Urine pH (4.5-7.5) Ur Specific [place] (1.000-1.030) Urine Protein (Negative) Urine Glucose (UA) (Negative) Urine Ketones (Negative) Urine Blood (Negative) Urine Nitrite (Negative) Urine Bilirubin (Negative) Urine Urobilinogen (Negative) Ur Leukocyte Esterase (Negative) Urine WBC (Auto) (0-5) /hpf Urine RBC (Auto) (0-4) /hpf U Hyaline Cast (Auto) (0-5) /lpf U Epithel Cells (Auto) (0-5) /lpf Urine Bacteria (Auto) (Negative) Urine Osmolality (500-800) mOsm/kg Ur Random Sodium mmol/L Lyme Disease IgG Ab Negative (Negative) Lyme Disease IgM Ab Negative (Negative) 05/09/19 05/09/19 05/09/19 Range/Units 14:15 14:59 14:59 WBC (4.8-10.8) K/uL RBC (4.2-5.4) M/uL Hgb (12.0-16.0) g/dL Hct (37-47) % MCV (80-100) fL MCH (25-34) pg MCHC (32-36) g/dL RDW Std Deviation (36.4-46.3) fL RDW Coeff of Tosin (11.5-14.5) % Plt Count (130-400) K/uL MPV (7.4-10.4) fL Immature Gran % (Auto) % Neut % (Auto) % Lymph % (Auto) % [place] % (Auto) % Eos % (Auto) % Baso % (Auto) % Immature Gran # (Auto) (0.00-0.02) K/uL Neut # (Auto) (1.4-6.5) K/uL Lymph # (Auto) (1.2-3.4) K/uL [place] # (Auto) (0.11-0.59) K/uL Eos # (Auto) (0-0.5) K/uL Baso # (Auto) (0-0.2) K/uL PT (9.0-12.0) Seconds INR (0.9-1.1) APTT (21.0-31.0) Seconds PTT Ratio VBG pH 7.44 H (7.36-7.41) VBG pCO2 52 H (38-50) mmHg VBG pO2 34 mmHg VBG HCO3 34 mmol/L VBG O2 Saturation 63.1 % VBG Base Excess 8.6 mEq/L Barometric Pressure 733.0 mm/Hg Sodium (136-145) mmol/L Potassium (3.5-5.1) mmol/L Chloride (98-107) mmol/L Carbon Dioxide (21-32) mmol/L Anion Gap (3-11) BUN (7-18) mg/dl Creatinine (0.6-1.2) mg/dl Est Cr Clr Drug Dosing ml/min Est GFR ( Amer) Est GFR (Non-Af Amer) BUN/Creatinine Ratio (10-20) Glucose (70-99) mg/dl POC Glucose (70-99) Osmolality (280-300) mOsm/kg Calcium (8.5-10.1) mg/dl Magnesium (1.8-2.4) mg/dl Total Bilirubin (0.2-1) mg/dl AST (15-37) U/L ALT (12-78) U/L Alkaline Phosphatase (45-117) U/L Total Creatine Kinase (26-192) U/L Troponin I (0-0.045) ng/ml Total Protein (6.4-8.2) gm/dl Albumin (3.4-5.0) gm/dl Globulin (2.5-4.0) gm/dl Albumin/Globulin Ratio (0.9-2) TSH (0.300-4.500) uIu/ml Urine Color Yellow Urine Appearance Cloudy A (Clear) Urine pH 6.5 (4.5-7.5) Ur Specific [place] 1.012 (1.000-1.030) Urine Protein Negative (Negative) Urine Glucose (UA) Negative (Negative) Urine Ketones Negative (Negative) Urine Blood Negative (Negative) Urine Nitrite Positive A (Negative) Urine Bilirubin Negative (Negative) Urine Urobilinogen Negative (Negative) Ur Leukocyte Esterase 1+ H (Negative) Urine WBC (Auto) 10-30 H (0-5) /hpf Urine RBC (Auto) 10-30 H (0-4) /hpf U Hyaline Cast (Auto) 1-5 (0-5) /lpf U Epithel Cells (Auto) 10-20 H (0-5) /lpf Urine Bacteria (Auto) 1+ H (Negative) Urine Osmolality 317 L (500-800) mOsm/kg Ur Random Sodium mmol/L Lyme Disease IgG Ab (Negative) Lyme Disease IgM Ab (Negative) 05/09/19 Range/Units 14:59 WBC (4.8-10.8) K/uL RBC (4.2-5.4) M/uL Hgb (12.0-16.0) g/dL Hct (37-47) % MCV (80-100) fL MCH (25-34) pg MCHC (32-36) g/dL RDW Std Deviation (36.4-46.3) fL RDW Coeff of Tosin (11.5-14.5) % Plt Count (130-400) K/uL MPV (7.4-10.4) fL Immature Gran % (Auto) % Neut % (Auto) % Lymph % (Auto) % [place] % (Auto) % Eos % (Auto) % Baso % (Auto) % Immature Gran # (Auto) (0.00-0.02) K/uL Neut # (Auto) (1.4-6.5) K/uL Lymph # (Auto) (1.2-3.4) K/uL [place] # (Auto) (0.11-0.59) K/uL Eos # (Auto) (0-0.5) K/uL Baso # (Auto) (0-0.2) K/uL PT (9.0-12.0) Seconds INR (0.9-1.1) APTT (21.0-31.0) Seconds PTT Ratio VBG pH (7.36-7.41) VBG pCO2 (38-50) mmHg VBG pO2 mmHg VBG HCO3 mmol/L VBG O2 Saturation % VBG Base Excess mEq/L Barometric Pressure mm/Hg Sodium (136-145) mmol/L Potassium (3.5-5.1) mmol/L Chloride (98-107) mmol/L Carbon Dioxide (21-32) mmol/L Anion Gap (3-11) BUN (7-18) mg/dl Creatinine (0.6-1.2) mg/dl Est Cr Clr Drug Dosing ml/min Est GFR ( Amer) Est GFR (Non-Af Amer) BUN/Creatinine Ratio (10-20) Glucose (70-99) mg/dl POC Glucose (70-99) Osmolality (280-300) mOsm/kg Calcium (8.5-10.1) mg/dl Magnesium (1.8-2.4) mg/dl Total Bilirubin (0.2-1) mg/dl AST (15-37) U/L ALT (12-78) U/L Alkaline Phosphatase (45-117) U/L Total Creatine Kinase (26-192) U/L Troponin I (0-0.045) ng/ml Total Protein (6.4-8.2) gm/dl Albumin (3.4-5.0) gm/dl Globulin (2.5-4.0) gm/dl Albumin/Globulin Ratio (0.9-2) TSH (0.300-4.500) uIu/ml Urine Color Urine Appearance (Clear) Urine pH (4.5-7.5) Ur Specific [place] (1.000-1.030) Urine Protein (Negative) Urine Glucose (UA) (Negative) Urine Ketones (Negative) Urine Blood (Negative) Urine Nitrite (Negative) Urine Bilirubin (Negative) Urine Urobilinogen (Negative) Ur Leukocyte Esterase (Negative) Urine WBC (Auto) (0-5) /hpf Urine RBC (Auto) (0-4) /hpf U Hyaline Cast (Auto) (0-5) /lpf U Epithel Cells (Auto) (0-5) /lpf Urine Bacteria (Auto) (Negative) Urine Osmolality (500-800) mOsm/kg Ur Random Sodium 45 mmol/L Lyme Disease IgG Ab (Negative) Lyme Disease IgM Ab (Negative) Imaging Data Radiologist's Impression: Radiology results as stated below per my review and the radiologist's interpretation: XR chest 1V portable CLINICAL HISTORY: 63 years-old Female presenting with weakness. TECHNIQUE: Portable upright AP view of the chest was obtained. COMPARISON: 02/21/2019. FINDINGS: Left subclavian pacer with leads in the right atrium and right ventricular apex. Vascular stent in the region of the left common carotid artery. Atherosclerosis of the aortic arch. Cardiac silhouette top normal in size. Mild pulmonary vascular prominence. No focal opacity. No large effusion or pneumothorax. Degenerative changes of the thoracic spine. Upper abdomen normal. IMPRESSION: 1. No acute cardiopulmonary disease. Electronically signed by: Christ Sultana M.D. 05/09/2019 2:[address] head/brain wo con CLINICAL HISTORY: 63 years-old Female with weakness. Acute weakness TECHNIQUE: Multiple axial CT images of the head were obtained without contrast. A dose lowering technique was utilized adhering to the principles of ALARA. CT DOSE: 655.73 mGy.cm COMPARISON: Head CT 05/22/2018. FINDINGS: No acute intracranial hemorrhage, midline shift, intracranial mass, hydrocephalus, territorial ischemia or abnormal extra-axial collection. Mild age-related involutional changes. Patchy white matter hypodensities redemonstrated suggestive of probable chronic microvascular ischemic changes. Cerebral vascular calcifications are noted. Remote appearing lacunar infarct of the left caudate nucleus. The calvarium is intact. Trace mastoid effusions. Severe near complete opacification of the right maxillary sinus with moderate mucosal thickening of the ethmoid air cells. Prior bilateral cataract repair. The soft tissues are within normal limits. IMPRESSION: No acute intracranial abnormality. The above report was generated using voice recognition software. It may contain grammatical, syntax or spelling errors. Electronically signed by: Shivam De Los Santos M.D. 05/09/2019 2:30 PM ECG Data Attestation: I personally reviewed and interpreted this ECG as follows: Indication: weakness Rate (beats per minute): 70 Rhythm: other (atrial paced rhythm) Findings: no PVC, no ST depression and no ST elevation Comparison ECG Date: from (02/21/2019) Change: the following changes noted (atrial paced rhythm replaced a-fib) Blood Pressure Blood Pressure Findings: Normal blood pressure Blood Pressure Disposition: did not require urgent referral MDM Narrative The patient is a 63-year-old female who presented to the emergency department for an evaluation of generalized weakness. The patient presented with her sister. The patient has been having ongoing symptoms for the last week but they have become much worse over the last few days. Patient had a history of fluid retention and was treated with metaxalone. The patient has had symptomatic relief with her lower extremity edema but is since become confused and slow to respond to questions. I discussed the patient's laboratory and radiographic studies with her. She was found to have significant hyponatremia which is decreased from her baseline. Patient was also found to have multiple electro lyte abnormality's which were treated in the emergency department. She was treated with IV magnesium as well as potassium replacement. She was also treated with IV fluids and IV antibiotics for presumed urinary tract infection noted on urinalysis. Given the patient's findings and her symptoms I did discuss her case with the on-call [facility] hospitalist. They have agreed to evaluate the patient in the emergency department for further management and disposition. Impression & Plan Altered mental status, Hyponatremia, Weakness, ANNETTE (acute kidney injury), UTI (urinary tract infection) Discharge Plan Visit Data Chief Complaint: Weakness Stated Complaint: WEAK,DIZZINESS,VOMITING ED Provider: Mikal Warren Discharge Problem: Altered mental status, Hyponatremia, Weakness, ANNETTE (acute kidney injury), UTI (urinary tract infection) Patient Disposition: Being Evaluated by Hospitalist Forms Stand Alone Forms: [facility] Prescriptions Prescriptions: No Action lorazepam 0.5 mg tablet 0.5 mg PO BID PRN (Reason: Anxiety) RF: 0 pramipexole 0.25 mg tablet 0.75 mg PO HS Qty: 30 RF: 2 gabapentin 400 mg capsule 400 mg PO TID RF: 0 ipratropium-albuterol 0.5 mg-3 mg(2.5 mg base)/3 mL solution for nebulization 3 ml INH Q4H PRN (Reason: shortness of breath or wheezing) Qty: 90 RF: 2 Spiriva Respimat 2.5 mcg/actuation mist 2 puffs INH DAILY Qty: 4 RF: 2 albuterol sulfate [Ventolin HFA] 90 mcg/actuation HFA aerosol inhaler 2 puffs INH Q6H PRN (Reason: shortness of breath or wheezing) Qty: 8 RF: 0 glimepiride 1 mg tablet 1 mg PO QAM Qty: 90 RF: 3 hydralazine 10 mg tablet 10 mg PO TID Qty: 270 RF: 3 potassium chloride 10 mEq tablet extended release 10 meq PO BID Qty: 180 RF: 3 Januvia 100 mg tablet 100 mg PO DAILY Qty: 90 RF: 3 furosemide 20 mg tablet 20 mg PO .COMPLEX Qty: 30 RF: 2 isosorbide mononitrate 30 mg tablet extended release 24 hr 30 mg PO DAILY Qty: 90 RF: 3 ranolazine [Ranexa] 500 mg tablet extended release 12 hr 500 mg PO BID Qty: 180 RF: 3 nitroglycerin 0.4 mg tablet, sublingual 0.[address] .[address] 1 TABLET UNDER Qty: 1 RF: 0 metolazone 2.5 mg tablet 2.5 mg PO DAILY Qty: 14 RF: 1 metoprolol tartrate 100 mg Tablet 100 mg PO BID RF: 0 clopidogrel [Plavix] 75 mg Tablet 75 mg PO QAM RF: 0 metformin 1,000 mg Tablet 1,000 mg PO BID RF: 0 duloxetine 60 mg Capsule,Delayed Release(Dr/Ec) 60 mg PO QAM RF: 0 rosuvastatin 40 mg Tablet 40 mg PO QAM RF: 0 Xarelto 20 mg Tablet 20 mg PO QAM RF: 0 furosemide [Lasix] 40 mg tablet 40 mg PO DAILY RF: 0 meloxicam [Mobic] 15 mg tablet 15 mg PO QAM RF: 0 diltiazem HCl 240 mg Capsule,Extended Release 24hr 240 mg PO QAM Qty: 30 RF: 4 Medical Marijuana PO UD RF: 0 Referrals Referrals: Glenny Correa CRNP [Primary Care Provider] - Discharge Problem: Altered mental status Qualifiers: Altered mental status type: unspecified Qualified Code(s): R41.82 - Altered mental status, unspecified UTI (urinary tract infection) Qualifiers: Urinary tract infection type: site unspecified Hematuria presence: without hematuria Qualified Code(s): N39.0 - Urinary tract infection, site not specified The scribe's documentation has been prepared under my direction and personally reviewed by me in its entirety. I confirm that the note above accurately reflects all work, treatment, procedures, and medical decision making performed by me.
[2019-05-09] MEDS: MAGNESIUM SULFATE / D5W 1 GM/100 ML BAG IV SCH ×2 (18:40→19:40)
[2019-05-09] MEDS ORDERED: ACETAMINOPHEN 325 MG TAB PO PRN (20:20)
[2019-05-09] MEDS ORDERED: LORazepam 0.5 MG TAB PO PRN (20:20)
[2019-05-09] MEDS ORDERED: DC ALL PREVIOUSLY ORDERED DIABETES MEDS ONE (20:20)
[2019-05-09] MEDS ORDERED: POLYETHYLENE (MIRALAX) 17 GM PACK PO PRN (20:20)
[2019-05-09] MEDS ORDERED: GLUCOSE 40% GEL 15 GM TUBE PO PRN (20:20)
[2019-05-09] MEDS ORDERED: ZOLPIDEM TARTRATE 5 MG TAB PO PRN (20:20)
[2019-05-09] MEDS ORDERED: GLUCOSE 10 TABS/TUBE PO PRN (20:20)
[2019-05-09] MEDS ORDERED: CARBOHYDRATES FOR HYPOGLYCEMIA PO PRN (20:20)
[2019-05-09] MEDS ORDERED: ALBUT/IPRATROP 3MG/0.5MG NEB 3 ML VIAL INH PRN (20:20)
[2019-05-09] MEDS ORDERED: NITROGLYCERIN SL 0.4 MG/TAB TAB SL PRN ×2 (20:20)
[2019-05-09] MEDS ORDERED: GLUCAGON FOR INJ 1 MG VIAL SQ PRN (20:20)
[2019-05-09] MEDS ORDERED: DEXTROSE 50% 50 ML SYRINGE IV PRN (20:20)
[2019-05-09] MEDS ORDERED: ALBUTEROL HFA 8 GM INHALER INH PRN (20:20)
[2019-05-09] MEDS ORDERED: PHARMACY GLYCEMIC MGMT CONSULT PRN (20:32)
[2019-05-09] MEDS ORDERED: GABAPENTIN 300 MG CAP PO ONE (21:00)
[2019-05-09] MEDS: NSS + 20MEQ KCL 20 MEQ/1,000 ML BAG IV SCH (21:03)
[2019-05-09 21:05] LABS: Basophils # (auto) 0.02 K/uL (0-0.2); Basophils % (auto) 0.2 %; Eosinophils % (auto) 0.8 %; Hematocrit (blood only) 34.6 % (37-47); Immature Granulocytes # (auto) 0.04 K/uL (0.00-0.02); Immature Granulocytes % (auto) 0.3 %; Lymphocytes # (auto) 1.97 K/uL (1.2-3.4); Lymphocytes % (auto) 15.4 %; Mean Corpuscular Hemoglobin 29.1 pg (25-34); Mean Corpuscular Hgb Conc 34.7 g/dL (32-36); Mean Corpuscular Volume 83.8 fL (80-100); Mean Platelet Volume 12.1 fL (7.4-10.4); Monocytes # (auto) 1.21 K/uL (0.11-0.59); Monocytes % (auto) 9.5 %; Neutrophils # (auto) 9.46 K/uL (1.4-6.5); Neutrophils % (auto) 73.8 %; Platelet Count 197 K/uL (130-400); RDW Standard Deviation 42.7 fL (36.4-46.3); Red Blood Count 4.13 M/uL (4.2-5.4)
[2019-05-09] MEDS: RANOLAZINE 500 MG ER TAB PO SCH (21:09)
[2019-05-09] MEDS: PRAMIPEXOLE DIHYDROCHLO 0.25 MG TAB PO SCH (21:09)
[2019-05-09 21:34] LABS: Albumin Level 3.2 gm/dl (3.4-5.0); Calcium 8.8 mg/dl (8.5-10.1); Creatinine Clr Calc Pharmacy 46.7 ml/min; Est GFR (African American) 44.4; Est GFR (Non-African American) 38.3; Potassium 2.8 mmol/L (3.5-5.1)
[2019-05-09 21:35] LABS: Albumin Globulin Ratio 0.9 (0.9-2); Bilirubin,Total 0.5 mg/dl (0.2-1); Globulin 3.4 gm/dl (2.5-4.0); Total Protein 6.6 gm/dl (6.4-8.2)
[2019-05-09] MEDS: INSULIN ASPART 100 UNITS/ML 3 ML PEN SC SCH (21:45)
--- NOTE | 2019-05-09 23:24 | History & Physical Report ---
Date of Service May 09, 2019 Assessment & Plan (1) Altered mental status: Patient is alert and oriented but very sluggish pace. Admits to PCU on telemetry Vital signs every 4 hours Monitor sodium potassium and magnesium and replenished as needed Started IV fluid normal saline with potassium 20 mEq at rate of 75 cc/h Monitor CMP every 6 hours and moderate NSS as rate as needed to make sure that sodium is not corrected more than 12 units in 24 hours for moderate hyponatremia. Check urine drug screen Taper down gabapentin because that can also cause hyponatremia Restrict water intake to 1000 p.o. TTE Interrogate pacemaker by [employer] in a.m. No issues on EKG- normal sinus rhythm, nonspecific T wave changes in the anterior leads. Consult cardiology as necessary. DVT prophylaxis continue Xarelto(patient is on need for paroxysmal A. fib's) Consult nephrology for hyponatremia Full code Present on Admission?: Yes (2) Hyponatremia: As the above Present on Admission?: Yes (3) ANNETTE (acute kidney injury): Avoid nephrotoxic agents, slow fluid fluid infusion as recommended above. Present on Admission?: Yes (4) UTI (urinary tract infection): Given ceftriaxone in the ER. Urine culture pending Renal ultrasound/bladder pending Present on Admission?: Yes (5) COPD (chronic obstructive pulmonary disease): Continue home medicine: Albuterol HFA 2 puffs inhalation every 6 hours as needed, DuoNeb every 4 hours as needed, ipratropium bromide 1 puff inhalation daily. Supplemental oxygen as needed as needed to keep oxygenation above 92%. Present on Admission?: Yes (6) DM II (diabetes mellitus, type II), controlled: Accu-Cheks before meals and at bedtime Glycemic control per pharmacy consult Present on Admission?: Yes (7) Systolic and diastolic CHF, chronic: TTE pending Consult cardiology as needed Would recommend consulting [employer] in a.m. for the pacemaker Present on Admission?: Yes (8) Hypomagnesemia: Replenish as needed Present on Admission?: Yes History of Present Illness Chief Complaint: Confusion and drowsiness Primary Care Provider: MANUEL Middleton Patient is a 63 years old female with past medical history of hypertension hyperlipidemia, coronary artery disease with cardiac pacemaker. An STEMI, morbid obesity, restless leg syndrome, peripheral arterial disease, left ventr icular diastolic dysfunction, COPD O2 dependent at night 2 L, mild cognitive impairment, diabetes mellitus type 2 uncontrolled was brought by her sister to the emergency room with a complaint that patient does not look like herself which she is drowsy and mildly lethargic. Patient admits to taking some [facility] medical products today and her sister is stating that patient condition in such a lethargic state has been on ongoing for approximately several weeks. Patient reports that she is short of breath she refused to wear her oxygen at home which she uses at night that her PCP gave her for 3 days metolazone and that that happened with swelling of her lower extremities but after 3 days of taking metolazone patient started to feel dizzy and unsteady on her feet. Patient also said that she was drinking a large amount of water in the past several days approximately 4 cups of 20 ounces or more trying to wean herself off Coke. Patient denies fever chills chest pain abdominal pain frequency urgency or a day edema, patient denies syncope or near syncope, she denies hematemesis hematuria dysuria and melena. Patient reports being a smoker in the past but quit in January 2019. On physical exam patient appropriately responds to all questions but appears sluggish. Labs were reviewed and significant for hyponatremia of 122, potassium of 2.8, BUN 25, creatinine 1.44, glucose 128, osmolality of 261, magnesium 1.7, troponin 0 0.015, Albumin 3.2, TSH 1.4, white blood cells of 12.8 mildly elevated, hemoglobin 12, hematocrit 34.6, platelets pending, APTT 48.5, INR 1.6, PT 15.5, urine positive for leukocyte esterase urine white blood cells 10-[address] urine bacteria 1+. CT head :no acute intracranial abnormality. Chest x- rays :no acute cardiopulmonary disease. Allergies Allergy/AdvReac Type Severity Reaction Status Date / Time No Known Drug Allergies Allergy Verified 05/09/19 14:02 Home Medications Home Medications Medication Instructions Recorded Confirmed Type clopidogrel [Plavix] 75 mg PO QAM 05/13/18 05/09/19 History duloxetine 60 mg PO QAM 05/13/18 05/09/19 History metformin 1,000 mg PO BID 05/13/18 05/09/19 History metoprolol tartrate 100 mg PO BID 05/13/18 05/09/19 History rosuvastatin 40 mg PO QAM 05/13/18 05/09/19 History Xarelto 20 mg PO QAM 10/11/18 05/09/19 History furosemide [Lasix] 40 mg PO DAILY 11/19/18 05/09/19 History meloxicam [Mobic] 15 mg PO QAM 11/19/18 05/09/19 History nitroglycerin 0.4 mg sublingual 0.[address] .[address] 1 TABLET UNDER #1 02/20/19 05/09/19 History tablet tab diltiazem HCl 240 mg PO QAM #30 cap 02/22/19 05/09/19 Rx albuterol sulfate HFA 90 2 puffs INH Q6H PRN #8 gm 02/24/19 05/09/19 Rx mcg/actuation aerosol inhaler gabapentin 400 mg capsule 400 mg PO TID cap 02/24/19 05/09/19 History ipratropium-albuterol 0.5 mg-3 3 ml INH Q4H PRN #90 ml 02/24/19 05/09/19 Rx mg(2.5 mg base)/3 mL nebulization soln lorazepam 0.5 mg tablet 0.5 mg PO BID PRN tab 02/24/19 05/09/19 History pramipexole 0.25 mg tablet 0.75 mg PO HS #30 tab 02/24/19 05/09/19 Rx tiotropium bromide 2.5 2 puffs INH DAILY #4 gm 02/24/19 05/09/19 Rx mcg/actuation mist for inhalation glimepiride 1 mg tablet 1 mg PO QAM #90 tab 02/27/19 05/09/19 Rx hydralazine 10 mg tablet 10 mg PO TID #270 tab 03/10/19 05/09/19 Rx potassium chloride ER 10 mEq 10 meq PO BID #180 tab 03/10/19 05/09/19 Rx tablet,extended release sitagliptin 100 mg tablet 100 mg PO DAILY #90 tab 03/10/19 05/09/19 Rx furosemide 20 mg tablet 20 mg PO .COMPLEX #30 tab 03/20/19 05/09/19 Rx isosorbide mononitrate ER 30 mg 30 mg PO DAILY #90 tab 03/27/19 05/09/19 Rx tablet,extended release 24 hr ranolazine ER 500 mg 500 mg PO BID #180 tab 03/27/19 05/09/19 Rx tablet,extended release,12 hr metolazone 2.5 mg tablet 2.5 mg PO DAILY #14 tab 04/29/19 05/09/19 Rx Medical Marijuana 0 ea PO UD 05/09/19 05/09/19 History Past Med/Surg History Medical History COPD (chronic obstructive pulmonary disease) DM II (diabetes mellitus, type II), controlled Systolic and diastolic CHF, chronic Hypomagnesemia (Acute) Combined systolic and diastolic heart failure Depression with anxiety Dyspnea Hypoxia Left ventricular diastolic dysfunction Tachycardia (Acute) Restless legs Obesity Nicotine dependence NSTEMI (non-ST elevated myocardial infarction) Mild cognitive impairment Diabetes mellitus type 2, uncontrolled NIDDM CAD (coronary artery disease) SSS (sick sinus syndrome) Paroxysmal SVT (supraventricular tachycardia) PAD (peripheral artery disease) Hx of non-ST elevation myocardial infarction (NSTEMI) HLD (hyperlipidemia) HTN (hypertension) Hypertension (Acute) Anxiety Bulging discs Chronic back pain Chronic obstructive pulmonary disease Degenerative disc disease Depression Diabetic nephropathy Hyperlipidemia Incisional hernia Myocardial Infarction 05/2018 - [facility] Pacemaker 05/2015 - Sick sinus syndrome - Last checked 02/2019 ([facility]) - [employer] Rheumatoid arthritis Sick sinus syndrome Spinal stenosis Surgical History S/P cardiac pacemaker procedure History of cardiac cath 05/2018 - [place] - NO STENTS/ANGIOPLASTY - COLLATERAL CIRCULATION - FOLLOWS W/ DR. ERWIN History of cataract surgery BILATERAL History of cholecystectomy History of intravascular stent placement Multiple stents in bilateral legs, left subclavian, left aortic mesenteric bypass, left carotid endarterectomy History of oral surgery History of tonsillectomy History of tooth extraction Family History Mother , Heart Disease Ruptured Appendix No problems noted. Father , with Vascular and Colon Can No problems noted. Sister No problems noted. Grandfather (Maternal) Family history of diabetes mellitus Social History Preferred Language: Romanian Communication Ability: Effective Visual Impairment: No Limitations Registration Representative Required: No Beliefs That Will Affect Care: None Current Living Situation: Family Other Information That Helps Us Care for You: No Feels Safe at Home: Yes Safety Concerns: Feels Safe At This Time Smoking Status: Former smoker Tobacco Type: cigarettes ; Cigarettes Per Day: VAPES + 2 CIGS PER DAY ; Smoking End Date: 01/11/2019 ; Second Hand Exposure: Yes ; Hx Alcohol Use: Yes Alcohol type: beer Hx Substance Use: Yes substance use type: marijuana Substance Use Type Other:: "vaping THC" Last Used Substance: Hours (ago) Physical Exam Constitutional: WD/WN, vitals as above well developed and + obese Eyes: PERRL, conjunctivae normal, anicteric sclerae ENMT: external ear and nose normal, oropharynx normal Neck: trachea midline, no thyromegaly Respiratory: normal respiratory effort, lungs clear to auscultation Cardiovascular: Heart Sounds: normal S1 and normal S2 Palpation: + palpable S3 Gastrointestinal (Abdomen): normal bowel sounds, soft, nontender, no hepatosplenomegaly Musculoskeletal: no cyanosis or clubbing, extremities motor strength 5/5 Skin: no rashes, warm and dry Neurologic: PERRL, EOMI, accommodation nl, no face palsy, no dysarthria Speech / Cognition: + abnormal speech (Sluggish) Gait: + ataxic gait Genitourinary: Bilateral CVA tenderness Results & Data Vital Signs (Past 12 Hours) Vital Signs Temp Pulse Pulse Resp BP BP Pulse Ox 05/09/19 20:49 36.4 C L 70 22 122/79 99 05/09/19 20:37 68 05/09/19 20:01 67 21 142/82 H 94 05/09/19 19:01 64 17 139/82 95 05/09/19 18:30 61 19 114/73 94 05/09/19 18:01 62 17 122/58 L 95 05/09/19 17:31 60 19 111/56 L 98 05/09/19 17:00 75 13 112/56 L 95 05/09/19 16:30 62 16 94 05/09/19 16:01 60 19 105/76 97 05/09/19 15:01 65 17 111/73 93 05/09/19 14:10 96 05/09/19 13:56 37 C 87 18 131/84 92 Code Status & VTE Plan Code Status Full code VTE Prophylaxis Plan VTE Prophylaxis will be ordered: Yes PG Care Time/CCT Total # of Minutes Spent Total Time Spent with Patient: Total time spent is greater than 50% in coordination of care (as documented) at patient's floor/unit and/or counseling patient: (1) Altered mental status Altered mental status type: unspecified Qualified Code(s): R41.82 - Altered mental status, unspecified (2) UTI (urinary tract infection) Hematuria presence: without hematuria Urinary tract infection type: site unspecified Qualified Code(s): N39.0 - Urinary tract infection, site not specified
[2019-05-10 01:03] LABS: Amphetamines+Metham, Urine Neg (Neg); Barbiturates, Urine Neg (Neg); Benzodiazepine, Urine Neg (Neg); Cocaine, Urine Neg (Neg); MDMA (Ecstacy), Urine Neg (Neg); Methadone, Urine Neg (Neg); Opiate, Urine Neg (Neg); Phencyclidine, Urine Neg (Neg)
[2019-05-10] MEDS ORDERED: ACETAMINOPHEN 500 MG TAB PO PRN (01:43)
[2019-05-10 02:30] LABS: Basophils # (auto) 0.02 K/uL (0-0.2); Basophils % (auto) 0.2 %; Eosinophils # (auto) 0.09 K/uL (0-0.5); Eosinophils % (auto) 0.8 %; Hematocrit (blood only) 34.5 % (37-47); Hemoglobin 12.1 g/dL (12.0-16.0); Immature Granulocytes # (auto) 0.04 K/uL (0.00-0.02); Immature Granulocytes % (auto) 0.4 %; Lymphocytes # (auto) 1.72 K/uL (1.2-3.4); Lymphocytes % (auto) 15.1 %; Mean Corpuscular Hemoglobin 29.3 pg (25-34); Mean Corpuscular Hgb Conc 35.1 g/dL (32-36); Mean Corpuscular Volume 83.5 fL (80-100); Mean Platelet Volume 12.1 fL (7.4-10.4); Monocytes # (auto) 1.13 K/uL (0.11-0.59); Monocytes % (auto) 9.9 %; Neutrophils # (auto) 8.42 K/uL (1.4-6.5); Neutrophils % (auto) 73.6 %; Platelet Count 197 K/uL (130-400); RDW Coefficient of Variation 13.9 % (11.5-14.5); RDW Standard Deviation 42.5 fL (36.4-46.3); Red Blood Count 4.13 M/uL (4.2-5.4); White Blood Count 11.42 K/uL (4.8-10.8)
[2019-05-10] MEDS ORDERED: OXYCODONE HCL IR 5 MG TAB (IMMEDIATE RELEASE) PO STA (02:43)
[2019-05-10 02:48] LABS: Albumin Level 3.2 gm/dl (3.4-5.0); BUN Creatinine Ratio 18.1 (10-20); Calcium 8.5 mg/dl (8.5-10.1); Creatinine Clr Calc Pharmacy 49.4 ml/min; Est GFR (African American) 47.5; Potassium 2.9 mmol/L (3.5-5.1)
[2019-05-10 02:59] LABS: Bilirubin,Total 0.5 mg/dl (0.2-1); Globulin 3.2 gm/dl (2.5-4.0); Thyroid Stimulating Hormone 1.16 uIu/ml (0.300-4.500); Total Protein 6.4 gm/dl (6.4-8.2)
[2019-05-10] MEDS ORDERED: POTASSIUM CHLORIDE 10 MEQ TABCR PO STA (05:13)
--- NOTE | 2019-05-10 05:53 | Ultrasound Report ---
US renal/blad retro comp CLINICAL HISTORY: 63 years-old Female presenting with renal insufficiency. TECHNIQUE: Real-time grayscale and limited color Doppler ultrasound imaging of the kidneys and bladde r was performed. COMPARISON: CT from 08/20/2018. FINDINGS: Right kidney: Normal echogenicity with preserved corticomedullary differentiation. Normal cortical th ickness. Right kidney measures 10.0 cm. Mild pelvocaliectasis with blunting of calyces suggesting mil d hydronephrosis. No convincing evidence of calculus or mass. Left kidney: Normal echogenicity with preserved corticomedullary differentiation. Normal cortical thi ckness. Left kidney measures 10.2 cm. No hydronephrosis. No convincing evidence of calculus or mass. Bladder: Trace intraluminal debris may be present. Bilateral ureteral jets present. Other: None. IMPRESSION: 1. Mild right hydronephrosis. An obstructing right ureteral calculus or mass is not excluded. Electronically signed by: Christ Sultana M.D. 05/10/2019 5:52 AM
[2019-05-10 06:35] LABS: Estimated Average Glucose 157 mg/dl; Hemoglobin A1C 7.1 % (4.5-5.6)
[2019-05-10] MEDS: ROSUVASTATIN CALCIUM 20 MG TAB PO SCH (08:39)
[2019-05-10] MEDS: RANOLAZINE 500 MG ER TAB PO SCH ×2 (08:39→21:06)
[2019-05-10] MEDS: RIVAROXABAN 20 MG TAB PO SCH (08:40)
[2019-05-10] MEDS: GABAPENTIN 100 MG CAP PO SCH ×3 (08:40→21:06)
[2019-05-10] MEDS: CLOPIDOGREL BISULFATE 75 MG TAB PO SCH (08:40)
[2019-05-10] MEDS: dilTIAZem HCL 240 MG CAPCR PO SCH (08:40)
[2019-05-10] MEDS: DULOXETINE HCL 60 MG CAP PO SCH (08:40)
[2019-05-10 08:41] LABS: BUN Creatinine Ratio 17.1 (10-20); Creatinine Clr Calc Pharmacy 51.6 ml/min; Est GFR (African American) 50.2; Est GFR (Non-African American) 43.3; Magnesium 1.9 mg/dl (1.8-2.4); Potassium 3.1 mmol/L (3.5-5.1)
[2019-05-10] MEDS: TIOTROPIUM BROMIDE 5 PUFF/90 MCG INH INH SCH (08:41)
[2019-05-10 08:54] LABS: Albumin Level 3.1 gm/dl (3.4-5.0); BUN Creatinine Ratio 15.9 (10-20); Calcium 8.9 mg/dl (8.5-10.1); Creatinine Clr Calc Pharmacy 50.5 ml/min; Est GFR (African American) 48.8; Est GFR (Non-African American) 42.1
[2019-05-10 08:57] LABS: Bilirubin,Total 0.5 mg/dl (0.2-1); Globulin 3.2 gm/dl (2.5-4.0); Total Protein 6.3 gm/dl (6.4-8.2)
[2019-05-10] MEDS: INSULIN ASPART 100 UNITS/ML 3 ML PEN SC SCH ×4 (09:06→21:08)
[2019-05-10] MEDS: OXYCODONE HCL IR 5 MG TAB (IMMEDIATE RELEASE) PO PRN ×2 (09:51→21:03)
--- NOTE | 2019-05-10 10:23 | Nephrology Consultation ---
Date of Consultation May 10, 2019 Assessment & Plan (1) Hyponatremia: -- Thiazide induced hyponatremia -- Weakness and lethargy resolved. Patient is now asymptomatic -- Rate of sodium correction is appropriate -- Patient is clinically volume contracted. Continue to hold diuretics. Agree w/ 0.9 NS at 75 cc/hr -- Monitor PRP (2) ANNETTE (acute kidney injury): -- Improving w/ gentle hydration. Will monitor (3) UTI (urinary tract infection): -- Urine culture w/ gram - kelin. Patient is on empiric Rocephin therapy History of Present Illness Reason for Consultation: Hyponatremia Attending Physician: Dmitriy Soares History of Present Illness Ms. Sanz is a 63 year old white female who is seen at the request of Dr. Hartmann for evaluation of hyponatremia. Medical records in the EMR were reviewed today and are summarized as follows: Ms. Sanz has stage III CKD (moderate impairment). Her baseline creatinine has been 1.2 w/ EGFR 45 cc/min. She has not undergone Nephrology evaluation in the past. Her medical history is also significant for ASCVD, SSS s/p pacer, PAD (mesenteric graft + stent, L CEA + stent, multiple stents in both legs), COPD requiring nocturnal O2, AODM, HTN and chronic low back pain. Ms. Sanz reports progressive LE swelling starting in late April. This progressed to tense edema which limited her ability to ambulate. Furosemide was increased from 40 mg daily to 40 mg alternating w/ 60 mg each day and metolazone 2.5 mg daily was added. Patient reports brisk diuresis but progressive weakness and lethargy. She was admitted to the hospital w/ serum sodium 122 mEq/dL, hypokalemia and NANETTE w/ creatinine 1.4. Urinalysis was + for nitrates and LE Allergies Allergy/AdvReac Type Severity Reaction Status Date / Time No Known Drug Allergies Allergy Verified 05/09/19 14:02 Home Medications Home Medications Medication Instructions Recorded Confirmed Type clopidogrel [Plavix] 75 mg PO QAM 05/13/18 05/09/19 History duloxetine 60 mg PO QAM 05/13/18 05/09/19 History metformin 1,000 mg PO BID 05/13/18 05/09/19 History metoprolol tartrate 100 mg PO BID 05/13/18 05/09/19 History rosuvastatin 40 mg PO QAM 05/13/18 05/09/19 History Xarelto 20 mg PO QAM 10/11/18 05/09/19 History furosemide [Lasix] 40 mg PO DAILY 11/19/18 05/09/19 History meloxicam [Mobic] 15 mg PO QAM 11/19/18 05/09/19 History nitroglycerin 0.4 mg sublingual 0.[address] .[address] 1 TABLET UNDER #1 02/20/19 05/09/19 History tablet tab diltiazem HCl 240 mg PO QAM #30 cap 02/22/19 05/09/19 Rx albuterol sulfate HFA 90 2 puffs INH Q6H PRN #8 gm 02/24/19 05/09/19 Rx mcg/actuation aerosol inhaler gabapentin 400 mg capsule 400 mg PO TID cap 02/24/19 05/09/19 History ipratropium-albuterol 0.5 mg-3 3 ml INH Q4H PRN #90 ml 02/24/19 05/09/19 Rx mg(2.5 mg base)/3 mL nebulization soln lorazepam 0.5 mg tablet 0.5 mg PO BID PRN tab 02/24/19 05/09/19 History pramipexole 0.25 mg tablet 0.75 mg PO HS #30 tab 02/24/19 05/09/19 Rx tiotropium bromide 2.5 2 puffs INH DAILY #4 gm 02/24/19 05/09/19 Rx mcg/actuation mist for inhalation glimepiride 1 mg tablet 1 mg PO QAM #90 tab 02/27/19 05/09/19 Rx hydralazine 10 mg tablet 10 mg PO TID #270 tab 03/10/19 05/09/19 Rx potassium chloride ER 10 mEq 10 meq PO BID #180 tab 03/10/19 05/09/19 Rx tablet,extended release sitagliptin 100 mg tablet 100 mg PO DAILY #90 tab 03/10/19 05/09/19 Rx furosemide 20 mg tablet 20 mg PO .COMPLEX #30 tab 03/20/19 05/09/19 Rx isosorbide mononitrate ER 30 mg 30 mg PO DAILY #90 tab 03/27/19 05/09/19 Rx tablet,extended release 24 hr ranolazine ER 500 mg 500 mg PO BID #180 tab 03/27/19 05/09/19 Rx tablet,extended release,12 hr metolazone 2.5 mg tablet 2.5 mg PO DAILY #14 tab 04/29/19 05/09/19 Rx Medical Marijuana 0 ea PO UD 05/09/19 05/09/19 History Patient History Medical History COPD (chronic obstructive pulmonary disease) DM II (diabetes mellitus, type II), controlled Systolic and diastolic CHF, chronic Hypomagnesemia (Acute) Combined systolic and diastolic heart failure Depression with anxiety Dyspnea Hypoxia Left ventricular diastolic dysfunction Tachycardia (Acute) Restless legs Obesity Nicotine dependence NSTEMI (non-ST elevated myocardial infarction) Mild cognitive impairment Diabetes mellitus type 2, uncontrolled NIDDM CAD (coronary artery disease) SSS (sick sinus syndrome) Paroxysmal SVT (supraventricular tachycardia) PAD (peripheral artery disease) Hx of non-ST elevation myocardial infarction (NSTEMI) HLD (hyperlipidemia) HTN (hypertension) Hypertension (Acute) Anxiety Bulging discs Chronic back pain Chronic obstructive pulmonary disease Degenerative disc disease Depression Diabetic nephropathy Hyperlipidemia Incisional hernia Myocardial Infarction 05/2018 - [facility] Pacemaker 05/2015 - Sick sinus syndrome - Last checked 02/2019 ([facility]) - [employer] Rheumatoid arthritis Sick sinus syndrome Spinal stenosis Surgical History S/P cardiac pacemaker procedure History of cardiac cath 05/2018 - [place] - NO STENTS/ANGIOPLASTY - COLLATERAL CIRCULATION - FOLLOWS W/ DR. ERWIN History of cataract surgery BILATERAL History of cholecystectomy History of intravascular stent placement Multiple stents in bilateral legs, left subclavian, left aortic mesenteric bypass, left carotid endarterectomy History of oral surgery History of tonsillectomy History of tooth extraction Family History Mother , Heart Disease Ruptured Appendix No problems noted. Father , with Vascular and Colon Can No problems noted. Sister No problems noted. Grandfather (Maternal) Family history of diabetes mellitus Social History Preferred Language: Moldovan Communication Ability: Effective Visual Impairment: No Limitations Nursing Staffing Coordinator Required: No Beliefs That Will Affect Care: None Current Living Situation: Family Other Information That Helps Us Care for You: No Feels Safe at Home: Yes Safety Concerns: Feels Safe At This Time Smoking Status: Former smoker Tobacco Type: cigarettes ; Cigarettes Per Day: VAPES + 2 CIGS PER DAY ; Smoking End Date: 01/11/2019 ; Second Hand Exposure: Yes ; Hx Alcohol Use: Yes Alcohol type: beer Hx Substance Use: Yes substance use type: marijuana Substance Use Type Other:: "vaping THC" Last Used Substance: Hours (ago) Review of Systems Constitutional: no fever, no chills and no weakness Eyes: no worsening vision and no problem reported Ear, Nose, Mouth, Throat: no problem reported Respiratory: no cough and no dyspnea Cardiovascular: no chest pain, no palpitations and no edema Gastrointestinal: no abdominal pain, no nausea, no vomiting and no diarrhea/loose stools Genitourinary: no dysuria and no hematuria Musculoskeletal: no back pain Integumentary: no rash Neurologic: no falls and no confusion Physical Exam Constitutional: not in distress Eyes: PERRL, conjunctivae normal, anicteric sclerae ENMT: external ear and nose normal, oropharynx normal Neck: trachea midline, no thyromegaly Respiratory: normal respiratory effort, lungs clear to auscultation Cardiovascular: RRR, no murmur, no edema Gastrointestinal (Abdomen): normal bowel sounds, soft, nontender, no hepatosplenomegaly Musculoskeletal: no cyanosis or clubbing, extremities motor strength 5/5 Skin: no rashes, warm and dry Neurologic: awake; not confused Results & Data Vital Signs (Past 12 Hours) Vital Signs Temp Pulse Pulse Resp BP Pulse Ox 05/10/19 07:05 36.7 C 73 16 144/84 H 90 05/10/19 02:53 36 C L 78 22 146/70 H 94 05/09/19 23:26 72 05/09/19 23:17 36.5 C 72 19 112/72 94 Laboratory Results Laboratory Tests 05/10/19 05/10/19 02:16 08:12 WBC 11.42 H Hgb 12.1 Hct 34.5 L Plt Count 197 Sodium 125 L Potassium 3.1 L Chloride 82 L Carbon Dioxide 36 H BUN 22 H Creatinine 1.30 H Glucose 180 H Laboratory Tests 05/09/19 14:59 Urine Color Yellow Urine Appearance Cloudy A Urine pH 6.5 Ur Specific [place] 1.012 Urine Protein Negative Urine Glucose (UA) Negative Urine Ketones Negative Urine Blood Negative Urine Nitrite Positive A Urine Bilirubin Negative Urine Urobilinogen Negative Ur Leukocyte Esterase 1+ H Urine WBC (Auto) 10-30 H Urine RBC (Auto) 10-30 H U Epithel Cells (Auto) 10-20 H Urine Bacteria (Auto) 1+ H Diagnostic Findings 05/09/19 urine cx: Gram - bacilli PG Care Time/CCT Total # of Minutes Spent Total Time Spent with Patient: Total time spent is greater than 50% in coordination of care (as documented) at patient's floor/unit and/or counseling patient: (1) UTI (urinary tract infection) Hematuria presence: without hematuria Urinary tract infection type: site unspecified Qualified Code(s): N39.0 - Urinary tract infection, site not specified
[2019-05-10] MEDS: NSS + 20MEQ KCL 20 MEQ/1,000 ML BAG IV SCH (10:58)
[2019-05-10] MEDS: POTASSIUM CHLORIDE 20 MEQ TABCR PO SCH ×3 (10:58→21:05)
[2019-05-10] MEDS ORDERED: cefTRIAXone SODIUM 2,000 MG in DEXTROSE 5% 50 ML IV SCH (11:00)
[2019-05-10] MEDS ORDERED: INSULIN GLARGINE SOLOSTAR 100 UNITS/ML 3 ML PEN SC ONE (12:00)
--- NOTE | 2019-05-10 14:48 | Pharmacy Report ---
Pharmacy Glycemic Short Note 2 - Date of Service May 10, 2019 - Glycemic Short BSG Results (Last 24 hours): 05/09/19 05/09/19 05/09/19 14:10 20:41 20:46 Glucose 130 H 128 H POC Glucose 133 H 05/10/19 05/10/19 05/10/19 02:16 07:25 08:12 Glucose 148 H 179 H POC Glucose 163 H 05/10/19 05/10/19 08:12 11:28 Glucose 180 H POC Glucose 174 H OUTPATIENT ANTIDIABETIC REGIMEN: * glimepiride 1 mg qAM + januvia 100 mg daily * A1c = 7.1% (05/10/19) ASSESSMENT: * 63 yo female maintained on oral anti-diabetic agents as an outpatient admitted with altered mental status. * Fasting BSG is above goal, therefore I will add a conservative dose of Lantus x1 and reassess the need for ongoing basal insulin tomorrow. * Continue prandial coverage with Novolog (parameters based on weight/stress 2) PLAN FOR INPATIENT GLYCEMIC CONTROL: * Hold outpatient oral diabetes medications * Basal insulin * Lantus 9 units SQ x 1 * Bolus insulin * NovoLog per scale ACHS or Q6hrs while NPO * Goal Range: Low 110 mg/dL - High 140 mg/dL * Correction Factor: 25 mg/dL/unit * Nutritional / Prandial insulin per carb ratio of 1 unit per 8 grams CHO consumed PLAN FOR DISCHARGE: *
[2019-05-10 15:22] LABS: BUN Creatinine Ratio 16.6 (10-20); Creatinine Clr Calc Pharmacy 53.3 ml/min; Est GFR (African American) 52.1; Potassium 3.2 mmol/L (3.5-5.1)
--- NOTE | 2019-05-10 18:45 | Hospitalist Progress Note ---
Date of Service May 10, 2019 Assessment & Plan (1) Metabolic encephalopathy: 2nd to hyponatremia +/- UTI - improved. Cont fluids for low Na and abx for UTI. (2) UTI (urinary tract infection): 2nd GNR - cont rocephin; narrow abx once final culture is available. (3) ANNETTE (acute kidney injury): resolving with IV fluids. was volume contracted at admission due to recent addition of metazolone diuretic on 04/29. cont to hold diuretics. repeat BMP later today and in am. (4) Hyponatremia: due to hypovolemia in setting of recent addition of metazolone. IMPROVED. cont serial BMPs. cont gentle hydration. appreciate nephrology consultation. (5) Hypokalemia: 2nd to recent thiazide diuretic usage. IMPROVING. cont IV KCL in basal fluids. cont oral K supplementation. serial BMPs. (6) Hypomagnesemia: 2nd to diuretics - improved/resolved. (7) HTN (hypertension): controlled (8) HLD (hyperlipidemia): cont statin (9) Diabetes mellitus type 2, uncontrolled: holding oral agents basal-bolus SC insulin (10) Combined systolic and diastolic heart failure: clinically volume contracted cont IV fluids holding diuretics (11) COPD (chronic obstructive pulmonary disease): (12) CAD (coronary artery disease): no ischemic sx's at this time cont statin, plavix, etc (13) Status cardiac pacemaker: no issues stable on tele (14) DVT prophylaxis: xarelto PT eval tomorrow to ensure patient is safe for return home Subjective patient tired but feels better today overall. a bit more energy. eating is better. ambulating without dizziness. main complaint is that of lumbar back pain - chronic, had injection for such earlier this summer by Dr Cramer. no change in location/features of the pain. no flank pain. no abd pain. tele stable overnight. Review of Systems Constitutional: no fever and no chills Respiratory: no cough and no dyspnea Cardiovascular: no chest pain, no orthopnea and no paroxysmal nocturnal dyspnea Gastrointestinal: no abdominal pain, no nausea and no vomiting Physical Exam Constitutional: + obese; no acute distress and + not appropriately hydrated ENMT: Mouth: + dry oral mucous membranes Respiratory: normal respiratory effort, lungs clear to auscultation Cardiovascular: Rate/Rhythm: regular rate and regular rhythm Heart Sounds: normal S1 and normal S2; no murmur Vessels: posterior tibial pulses present and dorsalis pedis pulses present; no JVD Extremities: no edema Gastrointestinal (Abdomen): normal bowel sounds, soft, nontender, no hepatosplenomegaly no flank tenderness b/l to palpation Musculoskeletal: Spine: + lumbar spinal tenderness Psychiatric: A+Ox3, euthymic affect Results & Data Vital Signs (Past 12 Hours) Vital Signs Temp Pulse Resp BP Pulse Ox 05/10/19 15:15 36.8 C 65 18 145/84 H 91 05/10/19 11:05 36.8 C 72 16 145/74 H 89 L 05/10/19 07:05 36.7 C 73 16 144/84 H 90 Laboratory Results Cr 1.3 Na 125 K 2.9 PG Care Time/CCT Total # of Minutes Spent Total Time Spent with Patient: Total time spent is greater than 50% in coordina tion of care (as documented) at patient's floor/unit and/or counseling patient: (1) UTI (urinary tract infection) Hematuria presence: without hematuria Urinary tract infection type: site unspecified Qualified Code(s): N39.0 - Urinary tract infection, site not specified (2) CAD (coronary artery disease) Associated angina: without angina Coronary Disease-Associated Artery/Lesion type: [place] artery [place] vs. transplanted heart: [place] heart Qualified Code(s): I25.10 - Atherosclerotic heart disease of [place] coronary artery without angina pectoris (3) HLD (hyperlipidemia) Hyperlipidemia type: mixed hyperlipidemia Qualified Code(s): E78.2 - Mixed hyperlipidemia (4) Diabetes mellitus type 2, uncontrolled Glycemic state: with hyperglycemia Qualified Code(s): E11.65 - Type 2 diabetes mellitus with hyperglycemia (5) Combined systolic and diastolic heart failure Heart failure chronicity: chronic Qualified Code(s): I50.42 - Chronic combined systolic (congestive) and diastolic (congestive) heart failure (6) COPD (chronic obstructive pulmonary disease) COPD type: unspecified COPD Qualified Code(s): J44.9 - Chronic obstructive pulmonary disease, unspecified (7) HTN (hypertension) Hypertension type: essential hypertension Qualified Code(s): I10 - Essential (primary) hypertension
[2019-05-10] MEDS: PRAMIPEXOLE DIHYDROCHLO 0.25 MG TAB PO SCH (21:05)
[2019-05-11] MEDS: NSS + 20MEQ KCL 20 MEQ/1,000 ML BAG IV SCH (00:50)
[2019-05-11] MEDS: OXYCODONE HCL IR 5 MG TAB (IMMEDIATE RELEASE) PO PRN (05:41)
[2019-05-11 06:36] LABS: Basophils # (auto) 0.02 K/uL (0-0.2); Basophils % (auto) 0.2 %; Eosinophils # (auto) 0.11 K/uL (0-0.5); Eosinophils % (auto) 1.4 %; Hematocrit (blood only) 35.2 % (37-47); Hemoglobin 11.8 g/dL (12.0-16.0); Immature Granulocytes # (auto) 0.02 K/uL (0.00-0.02); Immature Granulocytes % (auto) 0.2 %; Lymphocytes # (auto) 1.16 K/uL (1.2-3.4); Lymphocytes % (auto) 14.3 %; Mean Corpuscular Hemoglobin 28.6 pg (25-34); Mean Corpuscular Hgb Conc 33.5 g/dL (32-36); Mean Corpuscular Volume 85.4 fL (80-100); Mean Platelet Volume 11.3 fL (7.4-10.4); Monocytes # (auto) 0.87 K/uL (0.11-0.59); Monocytes % (auto) 10.7 %; Neutrophils # (auto) 5.92 K/uL (1.4-6.5); Neutrophils % (auto) 73.2 %; Platelet Count 161 K/uL (130-400); RDW Coefficient of Variation 14.2 % (11.5-14.5); RDW Standard Deviation 44.3 fL (36.4-46.3); Red Blood Count 4.12 M/uL (4.2-5.4)
[2019-05-11 07:12] LABS: BUN Creatinine Ratio 13.2 (10-20); Calcium 8.5 mg/dl (8.5-10.1); Creatinine Clr Calc Pharmacy 57.1 ml/min; Est GFR (Non-African American) 49.2; Potassium 3.7 mmol/L (3.5-5.1)
[2019-05-11] MEDS ORDERED: cephALEXin 500 MG CAP PO SCH (09:00)
[2019-05-11] MEDS: GABAPENTIN 100 MG CAP PO SCH ×2 (09:06→14:37)
[2019-05-11] MEDS: RANOLAZINE 500 MG ER TAB PO SCH (09:06)
[2019-05-11] MEDS: RIVAROXABAN 20 MG TAB PO SCH (09:07)
[2019-05-11] MEDS: CLOPIDOGREL BISULFATE 75 MG TAB PO SCH (09:07)
[2019-05-11] MEDS: ROSUVASTATIN CALCIUM 20 MG TAB PO SCH (09:07)
[2019-05-11] MEDS: POTASSIUM CHLORIDE 20 MEQ TABCR PO SCH (09:08)
[2019-05-11] MEDS: TIOTROPIUM BROMIDE 5 PUFF/90 MCG INH INH SCH (09:08)
[2019-05-11] MEDS: dilTIAZem HCL 240 MG CAPCR PO SCH (09:08)
[2019-05-11] MEDS: DULOXETINE HCL 60 MG CAP PO SCH (09:08)
[2019-05-11] MEDS: INSULIN ASPART 100 UNITS/ML 3 ML PEN SC SCH ×2 (09:09→12:13)
--- NOTE | 2019-05-11 09:57 | Nephrology Progress Note ---
Date of Service May 11, 2019 Assessment & Plan (1) Hyponatremia: -- Thiazide induced hyponatremia -- Weakness and lethargy resolved -- Continue to hold diuretics and provide gentle hydration w/ 0.9 NS at 75 cc/hr -- Monitor PRP -- If discharge is anticipated recommend close follow up w/ PCP to resume diuretic therapy. Patient may benefit by changing Furosemide 40 mg daily to Bumex 1 mg po daily due to enhanced bioavailability -- Will sign off. Please call if further assistance is needed (2) ANNETTE (acute kidney injury): -- Resolved (3) UTI (urinary tract infection): -- Urine culture w/ gram - kelin. Patient is on empiric Rocephin therapy Subjective Ms. Sanz was seen & examined in her hospital room this morning. She is tolerating IV hydration without dyspnea. She reports improved strength. No progression of her LE swelling Review of Systems Constitutional: no fever, no chills and no weakness Eyes: no worsening vision and no problem reported Ear, Nose, Mouth, Throat: no problem reported Respiratory: no cough and no dyspnea Cardiovascular: no chest pain, no palpitations and no edema Gastrointestinal: no abdominal pain, no nausea, no vomiting and no diarrhea/loose stools Genitourinary: no dysuria and no hematuria Musculoskeletal: no back pain Integumentary: no rash Neurologic: no falls, no dizziness and no confusion Physical Exam Constitutional: not in distress Eyes: PERRL, conjunctivae normal, anicteric sclerae ENMT: external ear and nose normal, oropharynx normal Neck: trachea midline, no thyromegaly Respiratory: normal respiratory effort, lungs clear to auscultation Cardiovascular: RRR, no murmur, no edema Gastrointestinal (Abdomen): normal bowel sounds, soft, nontender, no hepatosplenomegaly Musculoskeletal: no cyanosis or clubbing, extremities motor strength 5/5 Skin: no rashes, warm and dry Neurologic: awake; not confused Results & Data Vital Signs (Past 12 Hours) Vital Signs Temp Pulse Pulse Resp BP Pulse Ox 05/11/19 07:14 36.7 C 83 16 143/81 H 93 05/11/19 03:57 37.0 C 84 19 154/84 H 92 05/11/19 00:42 77 05/10/19 23:48 36.7 C 80 18 143/79 H 91 Laboratory Results Laboratory Tests 05/11/19 05/11/19 06:21 06:21 WBC 8.10 Hgb 11.8 L Hct 35.2 L Sodium 132 L Potassium 3.7 D Chloride 94 L Carbon Dioxide 30 BUN 15 Creatinine 1.17 Glucose 155 H PG Care Time/CCT Total # of Minutes Spent Total Time Spent with Patient: Total time spent is greater than 50% in coordination of care (as documented) at patient's floor/unit and/or counseling patient: (1) UTI (urinary tract infection) Hematuria presence: without hematuria Urinary tract infection type: site unspecified Qualified Code(s): N39.0 - Urinary tract infection, site not specified
--- NOTE | 2019-05-11 10:56 | Pharmacy Report ---
Pharmacy Glycemic Short Note 2 - Date of Service May 11, 2019 - Glycemic Short BSG Results (Last 24 hours): 05/10/19 05/10/19 05/10/19 11:28 14:47 16:15 Glucose 106 H POC Glucose 174 H 147 H 05/10/19 05/11/19 05/11/19 20:22 06:21 07:24 Glucose 155 H POC Glucose 256 H 175 H OUTPATIENT ANTIDIABETIC REGIMEN: * glimepiride 1 mg qAM + januvia 100 mg daily * A1c = 7.1% (05/10/19) ASSESSMENT: * 63 yo female maintained on oral anti-diabetic agents as an outpatient admitted with altered mental status. * Pt received a total of 34 units of insulin yesterday with majority of BSGs above goal. * Fasting BSG remains above goal despite addition of Lantus on 05/10. * Will increase basal and bolus insulin by 20-30% PLAN FOR INPATIENT GLYCEMIC CONTROL: * Hold outpatient oral diabetes medications * Basal insulin - increase * Lantus 12 units SQ daily * Bolus insulin - tighten * NovoLog per scale ACHS or Q6hrs while NPO * Goal Range: Low 110 mg/dL - High 140 mg/dL * Correction Factor: 20 mg/dL/unit * Nutritional / Prandial insulin per carb ratio of 1 unit per 7 grams CHO consumed PLAN FOR DISCHARGE: * A1c = 7.1 % on 05/09/19 * Goal A1c <7 % based on age and comorbidities * Continue to titrate oral agents per outpatient provider
[2019-05-11] MEDS ORDERED: INSULIN GLARGINE SOLOSTAR 100 UNITS/ML 3 ML PEN SC SCH ×2 (11:00→21:00)
--- NOTE | 2019-05-11 14:30 | Pharmacy Report ---
Pharmacy Glycemic Short Note 2 - Date of Service May 11, 2019 - Glycemic Short BSG Results (Last 24 hours): 05/10/19 05/10/19 05/10/19 14:47 16:15 20:22 Glucose 106 H POC Glucose 147 H 256 H 05/11/19 05/11/19 05/11/19 06:21 07:24 11:10 Glucose 155 H POC Glucose 175 H 235 H OUTPATIENT ANTIDIABETIC REGIMEN: * glimepiride 1 mg qAM + januvia 100 mg daily * A1c = 7.1% (05/10/19) ASSESSMENT: 05/11: * Kortney received 34 units of insulin yesterday with the majority of BSGs above goal * 9 units of basal * 25 units of bolus * Fasting BSG is above goal. Post prandial BSGs are also above goal therefore Novolog CF/CR was tightened and overnight checks have been added. * I have increased insulin dosing by 20% and will attempt to split insulin regimen 50% basal/50% bolus 05/10: * 63 yo female maintained on oral anti-diabetic agents as an outpatient admitted with altered mental status. * Pt received a total of 34 units of insulin yesterday with majority of BSGs above goal. * Fasting BSG remains above goal despite addition of Lantus on 05/10. * Will increase basal and bolus insulin by 20-30% PLAN FOR INPATIENT GLYCEMIC CONTROL: * Hold outpatient oral diabetes medications * Basal insulin - increase * Lantus 12 units SQ daily * Lantus 0-6 units SQ HS (6 units if BSG is > 180 mg/dL) * Bolus insulin - tighten * NovoLog per scale ACHS or Q6hrs while NPO * Goal Range: Low 110 mg/dL - High 140 mg/dL * Correction Factor: 20 mg/dL/unit * Nutritional / Prandial insulin per carb ratio of 1 unit per 7 grams CHO consumed PLAN FOR DISCHARGE: * A1c = 7.1 % on 05/09/19 * Goal A1c <7 % based on age and comorbidities * Continue to titrate oral agents per outpatient provider
[2019-05-12] MEDS ORDERED: INSULIN ASPART 100 UNITS/ML 3 ML PEN SC SCH
--- NOTE | 2019-05-19 06:25 | Discharge Summary ---
Date of Service date of admission - 05/09/19 date of discharge - 05/11/19 Admission HPI Per Admitting Provider Patient is a 63 years old female with past medical history of hypertension, hyperlipidemia, coronary artery disease, pacemaker, prior acute FL, morbid obesity, restless leg syndrome, peripheral arterial disease, chronic diastolic CHF, COPD, mild cognitive impairment, and diabetes mellitus type 2. She was brought by her sister to the emergency room with a complaint that patient does not look like herself. She has been drowsy and mildly lethargic. Patient reports that her PCP gave her several days of metolazone due to worsening swelling of her lower extremities but after 3 days of taking metolazone she started to feel dizzy and unsteady on her feet. Patient also said that she was drinking a large amount of water in the past several days. Patient denies fever, chills, chest pain, abdominal pain, frequency, urgency, syncope or near syncope. Patient reports being a smoker in the past but quit in January 2019. On presentation labs were significant for hyponatremia of 122, potassium of 2.8. Principal Diagnosis hyponatremic dehydration with mild acute kidney injury - resolved Discharge Exam Constitutional + well hydrated and + obese; no acute distress ENMT external ear and nose normal, oropharynx normal Respiratory normal respiratory effort, lungs clear to auscultation Cardiovascular Rate/Rhythm: regular rate and regular rhythm Heart Sounds: normal S1 and normal S2; no murmur Vessels: posterior tibial pulses present and dorsalis pedis pulses present; no JVD Extremities: no edema Gastrointestinal (Abdomen) normal bowel sounds, soft, nontender, no hepatosplenomegaly Musculoskeletal Spine: + lumbar spinal tenderness Psychiatric A+Ox3, euthymic affect Discharge Data Allergies Allergy/AdvReac Type Severity Reaction Status Date / Time No Known Drug Allergies Allergy Verified 05/14/19 15:34 Consultations nephrology - Dragan Joseph MD Ordered Studies 1. CT head - FINDINGS: No acute intracranial hemorrhage, midline shift, intracranial mass, hydrocephalus, territorial ischemia or abnormal extra-axial collection. Mild age-related involutional changes. Patchy white matter hypodensities redemonstrated suggestive of probable chronic microvascular ischemic changes. Cerebral vascular calcifications are noted. Remote appearing lacunar infarct of the left caudate nucleus. The calvarium is intact. Trace mastoid effusions. Severe near complete opacification of the right maxillary sinus with moderate mucosal thickening of the ethmoid air cells. Prior bilateral cataract repair. The soft tissues are within normal limits. 2. u/s of kidneys & bladder - FINDINGS: Right kidney: Normal echogenicity with preserved corticomedullary differentiation. Normal cortical thickness. Right kidney measures 10.0 cm. Mild pelvocaliectasis with blunting of calyces suggesting mild hydronephrosis. No convincing evidence of calculus or mass. Left kidney: Normal echogenicity with preserved corticomedullary differentiation. Normal cortical thickness. Left kidney measures 10.2 cm. No hydronephrosis. No convincing evidence of calculus or mass. Bladder: Trace intraluminal debris may be present. Bilateral ureteral jets present. Hospital Course (1) Metabolic encephalopathy: Likely 2nd to combination of hyponatremia and UTI - resolved with treatment of both issues. Mental status returned to baseline prior to discharge. (2) UTI (urinary tract infection): 2nd klebsiella and serratia. Received IV rocephin initially and was transitioned to oral keflex at discharge. (3) ANNETTE (acute kidney injury): Resolved with IV fluids. Was volume contracted at admission due to recent addition of metazolone diuretic on 04/29/19. Diuretics were held during this admission. Creatinine at admission was 1.5, improving to 1.1 at discharge. Will need repeat BMP within about 1 week of discharge to ensure stability of creatinine & electrolytes. Mobic was held during the hospitalization and at discharge she was advised to continue holding it at home. (4) Hyponatremia: Due to hypovolemia in setting of recent addition of metazolone. IMPROVED s/p IV fluids and holding her diuretics during the stay. Admission Na was 122, improving to 132 at discharge. She was seen in consult by nephrology who provided walker recommendations for her ANNETTE and electrolyte disturbances. (5) Hypokalemia: 2nd to recent thiazide diuretic usage. Normalized with IV/PO supplementation. (6) Hypomagnesemia: 2nd to diuretics - improved/resolved prior to discharge. (7) HTN (hypertension): Controlled during the hospitalization. At discharge she was asked to HOLD her hydralazine. Other anti-hypertensives were continued. (8) HLD (hyperlipidemia): continue statin (9) Diabetes mellitus type 2, uncontrolled: Oral agents were resumed at time of discharge. (10) Combined systolic and diastolic heart failure: Was clinically volume contracted during the hospitalization. Diuretics were held and fluids were given. On day of discharge her lasix was resumed, Metoprolol will be continued. (11) COPD (chronic obstructive pulmonary disease): No exacerbation during the stay. Continue home inhalers. (12) CAD (coronary artery disease): no ischemic symptoms during the visit. Continue statin, plavix, imdur, ranexa, beta danae, etc. (13) Status cardiac pacemaker: no issues while hospitalized and telemetry was stable. Total Time Total Time Spent Total Time Spent (In Minutes): 40 Total Time Includes: Examination of the Patient, Discharge Planning and Medication Reconciliation Discharge Plan Discharge Items Patient Disposition: Home - Self-Care Reason For Visit: HYPONATREMIA Activity: Resume your previous activity Activity Comment: gradually increase as tolerated Non-emergency contact: Primary Care Provider Follow-up/Referrals: Glenny Correa CRNP [Primary Care Provider] - (see Ms Correa within 5 days; you will need repeat blood work at that time) Addtl Finish Molder Provider Instructions: You were admitted for fatigue/lethargy, confusion, and simply feeling poorly. This was likely due to the development of "hyponatremia" -- also known as low sodium level. You also had low potassium and low magnesium. These electrolyte abnormalities occurred probably due to the recent use of metazolone diuretic pill. You improved with receiving IV fluids, IV and oral potassium, and IV magnesium. Your potassium and magnesium normalized; your sodium level is just about normal too. You may have had a urinary tract infection as well. Recommendations - 1. take 20mg of lasix TODAY only. 2. start back your normal 40mg of lasix TOMORROW. 3. take a magnesium supplement once daily; prescription sent to [facility]. 4. for the urinary infection - cephalexin antibiotic x 5 more doses. Take 1 dose tonight, 2 doses tomorrow, and 2 doses on Sunday. 5. HOLD your mobic (meloxicam) for now as your kidneys are just recovering from this illness and the mobic can worsen things. 6. STOP metazolone completely. 7. HOLD hydralazine for now. If your blood pressures climb we can always resume it as an outpatient. 8. check your weights EVERY DAY on standing scale. If you gain more than 2-3 pounds over 1-2 days then take the extra lasix as previously instructed and let Ms Correa's office know. follow-up -- see Ms Correa THIS WEEK; you will need repeat blood work at that time return to [facility] if -- * you have fevers over 100.5 degrees * you have confusion, thinking problems, lethargy, etc * you have weakness or dizziness * you have worsening shortness of breath or chest pain * any other concerns Pending Studies at Discharge: No Stand-Alone Forms: My [facility] Medications and DC Order Prescriptions: New cephalexin 500 mg Capsule 500 mg PO BID Qty: 5 RF: 0 magnesium oxide 400 mg (241.3 mg magnesium) tablet 400 mg PO DAILY Qty: 30 RF: 5 Continued lorazepam 0.5 mg tablet 0.5 mg PO BID PRN (Reason: Anxiety) RF: 0 pramipexole 0.25 mg tablet 0.75 mg PO HS Qty: 30 RF: 2 gabapentin 400 mg capsule 400 mg PO TID RF: 0 ipratropium-albuterol 0.5 mg-3 mg(2.5 mg base)/3 mL solution for nebulization 3 ml INH Q4H PRN (Reason: shortness of breath or wheezing) Qty: 90 RF: 2 albuterol sulfate [Ventolin HFA] 90 mcg/actuation HFA aerosol inhaler 2 puffs INH Q6H PRN (Reason: shortness of breath or wheezing) Qty: 8 RF: 0 glimepiride 1 mg tablet 1 mg PO QAM Qty: 90 RF: 3 potassium chloride 10 mEq tablet extended release 10 meq PO BID Qty: 180 RF: 3 Januvia 100 mg tablet 100 mg PO DAILY Qty: 90 RF: 3 isosorbide mononitrate 30 mg tablet extended release 24 hr 30 mg PO DAILY Qty: 90 RF: 3 ranolazine [Ranexa] 500 mg tablet extended release 12 hr 500 mg PO BID Qty: 180 RF: 3 nitroglycerin 0.4 mg tablet, sublingual 0.[address] .[address] 1 TABLET UNDER Qty: 1 RF: 0 metoprolol tartrate 100 mg Tablet 100 mg PO BID RF: 0 clopidogrel [Plavix] 75 mg Tablet 75 mg PO QAM RF: 0 metformin 1,000 mg Tablet 1,000 mg PO BID RF: 0 duloxetine 60 mg Capsule,Delayed Release(Dr/Ec) 60 mg PO QAM RF: 0 rosuvastatin 40 mg Tablet 40 mg PO QAM RF: 0 Xarelto 20 mg Tablet 20 mg PO QAM RF: 0 diltiazem HCl 240 mg Capsule,Extended Release 24hr 240 mg PO QAM Qty: 30 RF: 4 Medical Marijuana PO UD RF: 0 Discontinued hydralazine 10 mg tablet 10 mg PO TID Qty: 270 RF: 3 metolazone 2.5 mg tablet 2.5 mg PO DAILY Qty: 14 RF: 1 meloxicam [Mobic] 15 mg tablet 15 mg PO QAM RF: 0 No Action Spiriva Respimat 2.5 mcg/actuation mist 2 puffs INH DAILY Qty: 4 RF: 11 bumetanide 1 mg tablet 1 mg PO DAILY Qty: 90 RF: 2 pregabalin [Lyrica] 75 mg capsule 75 mg PO BID Qty: 60 RF: 3 Discharge Orders: Discharge Order (Routine); Ordered 05/11/19 Ordered By: Dmitriy Soares Admission Data Admit Date/Time: 05/09/19 18:16 Attending Provider: Dmitriy Soares Admit Provider: Arlette Hartmann Primary Care Provider: Glenny Correa Other Providers: Arlette Hartmann Other Interventions: Discharge Summary Assessment (RN) Last Done: 05/11/19 14:25 DC Date/Time DO NOT enter until pt leaves facility: 05/11/19 16:00
== END 2019-05-11 16:00 | disposition home or self-care (01) | DRG 640 ==
LOC: ED 13:43 → SUATTDRO 18:16 → 2S 18:16
DX: N17.9 Acute kidney failure, unspecified; Z95.0 Presence of cardiac pacemaker; I25.10 Atherosclerotic heart disease of native coronary artery without angina pectoris; E83.42 Hypomagnesemia; N39.0 Urinary tract infection, site not specified; E11.9 Type 2 diabetes mellitus without complications; E87.1 Hypo-osmolality and hyponatremia; I50.42 Chronic combined systolic (congestive) and diastolic (congestive) heart failure; I11.0 Hypertensive heart disease with heart failure; G93.41 Metabolic encephalopathy; E78.5 Hyperlipidemia, unspecified; J44.9 Chronic obstructive pulmonary disease, unspecified

== ENCOUNTER 2019-10-11 04:50 | Inpatient (IN) ==
[2019-10-11] MEDS ORDERED: ONDANSETRON INJ 2 MG/ML 2 ML VIAL IV STA (05:14)
[2019-10-11] MEDS ORDERED: HYDROmorphone INJ 0.5 MG/0.5 ML SYR IV PRN (05:14)
[2019-10-11] MEDS ORDERED: SODIUM CHLORIDE 0.9% 1000ML 1,000 ML IV SCH (05:15)
[2019-10-11 05:34] LABS: Hematocrit (blood only) 38.2 % (37-47); Hemoglobin 12.3 g/dL (12.0-16.0); Mean Corpuscular Hemoglobin 27.8 pg (25-34); Mean Corpuscular Hgb Conc 32.2 g/dL (32-36); Mean Corpuscular Volume 86.4 fL (80-100); Mean Platelet Volume 12.3 fL (7.4-10.4); Platelet Count 168 K/uL (130-400); RDW Coefficient of Variation 16.5 % (11.5-14.5); RDW Standard Deviation 52.1 fL (36.4-46.3); Red Blood Count 4.42 M/uL (4.2-5.4); White Blood Count 16.89 K/uL (4.8-10.8)
[2019-10-11 05:48] LABS: INR 1.1 (0.9-1.1); Partial Thromboplastin Ratio 1.1; Partial Thromboplastin Time 29.6 Seconds (21.0-31.0); Prothrombin Time 11.3 Seconds (9.0-12.0)
[2019-10-11 06:05] LABS: Basophils # (auto) 0.01 K/uL (0-0.2); Basophils % (auto) 0.1 %; Immature Granulocytes # (auto) 0.04 K/uL (0.00-0.02); Immature Granulocytes % (auto) 0.2 %; Lymphocytes # (auto) 0.83 K/uL (1.2-3.4); Lymphocytes % (auto) 4.9 %; Monocytes # (auto) 0.96 K/uL (0.11-0.59); Monocytes % (auto) 5.7 %; Neutrophils # (auto) 15.05 K/uL (1.4-6.5); Neutrophils % (auto) 89.1 %; RBC Morphology Unremarkable
[2019-10-11] MEDS ORDERED: ACETAMINOPHEN 1,000 MG/100 ML VIAL IV STA (06:07)
[2019-10-11 06:19] LABS: Appearance Urine Cloudy (Clear); Bacteria Urine Automated 2+ (Negative); Bilirubin Urine Negative (Negative); Blood Urine Negative (Negative); Cast Urine Automated 0 /lpf (0-5); Color Urine Yellow; Epithelial Cell Urine Auto >30 /lpf (0-5); Glucose Urine UA 3+ (Negative); Ketones Urine Negative (Negative); Leukocyte Esterase Urine Trace (Negative); Nitrite Urine Positive (Negative); Protein Urine 1+ (Negative); RBC Urine Automated 0-4 /hpf (0-4); Specific Gravity Urine 1.018 (1.000-1.030); Urobilinogen Urine Negative (Negative); pH Urine 6.5 (4.5-7.5)
[2019-10-11 06:19] LABS: Alanine Aminotransferase 22 U/L (12-78); Albumin Globulin Ratio 0.7 (0.9-2); Albumin Level 2.8 gm/dl (3.4-5.0); Alkaline Phosphatase 123 U/L (45-117); Aspartate Aminotransferase 16 U/L (15-37); BUN Creatinine Ratio 14.9 (10-20); Bilirubin,Total 0.5 mg/dl (0.2-1); Blood Urea Nitrogen 24 mg/dl (7-18); Calcium 8.7 mg/dl (8.5-10.1); Carbon Dioxide 28 mmol/L (21-32); Chloride 97 mmol/L (98-107); Creatinine Clr Calc Pharmacy 43.1 ml/min; Est GFR (African American) 38.2; Globulin 3.9 gm/dl (2.5-4.0); Glucose 238 mg/dl (70-99); Lipase 46 U/L (73-393); Magnesium 1.6 mg/dl (1.8-2.4); Potassium 4.1 mmol/L (3.5-5.1); Sodium 133 mmol/L (136-145); Total Protein 6.7 gm/dl (6.4-8.2); Troponin I < 0.015 ng/ml (0-0.045)
[2019-10-11] MEDS ORDERED: OPTIRAY 320 125ml IV PRN (06:28)
[2019-10-11] MEDS ORDERED: cefTRIAXone SODIUM 2,000 MG/70 ML BAG IV STA (06:31)
--- NOTE | 2019-10-11 07:47 | CT Scan Report ---
CT angio abdomen pelvis w con HISTORY: Right side abd pain. Hx vascular issues. TECHNIQUE: Multiaxial CT images of the abdomen and pelvis were performed following the use of intrave nous contrast to evaluate the major arterial structures. Maximal intensity projection images were als o obtained. COMPARISON STUDY: Abdomen and pelvis CT 8 08/20/2018. FINDINGS: The lung bases are clear. No pneumoperitoneum. No acute fractures within the visualized oss eous structures. Pacemaker wires are noted. Prior cholecystectomy. The liver, spleen, adrenal glands, and pancreas are unremarkable. No retroperitoneal lymphadenopathy. There are surgical clips within t he right groin. The bladder, uterus, bilateral adnexa are unremarkable. No hydronephrosis. Bilateral cortical renal thinning. Hypodensities within the anterior left kidney remain unchanged and likely re present old infarcts. No hydronephrosis. Left lateral abdominal wall hernia containing multiple loops of small bowel and the splenic flexure of the colon, unchanged. No evidence for bowel obstruction. F ocal moderate thickening and pericolonic fat stranding surrounding the cecum. The appendix is not arabella rosi identified. These findings favor a nonspecific colitis. Acute appendicitis cannot be excluded bu t is considered less likely given the pattern of inflammatory change. Abnormal appearance of the gas within the cecum. This is likely intraluminal. Pneumatosis could also have a similar appearance but i s considered less likely. Extensive calcified plaque within the abdominal aorta. No aneurysm identified within the aorta. Focal mild narrowing of the abdominal aorta at the level of the renal arteries. There is mild focal narrow ing at the proximal right renal artery. The main left renal artery is patent. Bilateral common iliac artery stents are patent. No significant stenosis within the external iliac arteries. Multifocal narr owing within the bilateral internal there is again noted a common origin of the celiac and superior m esenteric arteries. There is focal moderate narrowing at the takeoff of the superior mesenteric arter y due to the calcified plaque. This is best seen on image 113. Iliac arteries with probable occlusion of the proximal left internal iliac artery. IMPRESSION: 1. Focal moderate thickening and pericolonic fat stranding surrounding the cecum. These findings favo r a nonspecific colitis and could be due to infectious, inflammatory, or ischemic process. Abnormal a ppearance of the gas within the cecum. This is likely intraluminal. Pneumatosis could also have a sim ilar appearance but is considered less likely. 2. The appendix is not clearly identified. Acute appendicitis cannot be excluded but is also consider ed less likely given the pattern of inflammatory change. 3. Common origin of the celiac and superior mesenteric arteries with focal moderate narrowing of appr oximately 50% at the takeoff of the superior mesenteric artery. 4. Bilateral common iliac artery stents are patent. 5. Additional stable findings as described above. ACT 112: Negative or not required by law. Electronically signed by: Dash Nolasco M.D. 10/11/2019 7:45 AM
--- NOTE | 2019-10-11 08:19 | History & Physical Report ---
Date of Service October 11, 2019 Assessment & Plan (1) Abdominal pain: -Admit to [facility] with telemetry -Abd pain now much improved with Dilaudid 1 x dose, however patient somnolent, will transition to IV morphine instead -CTA of the abdomen completed to rule out ischemia, negative for such, however does show focal moderate thickening and pericolonic fat stranding surrounding the cecum favoring a nonspecific colitis., Bilateral common iliac artery stents are patent, common origin of the celiac and superior mesenteric arteries with focal moderate narrowing of approximately 50% at the takeoff of the SMA -Continue IV Rocephin, administered 1 dose in ER for UTI -Received IV fluids in the ER, stop on further with the patient's history of CHF as to not fluid overload, holding torsemide -Continue supportive care with analgesics, antiemetics as needed -WBC = 16, afebrile -Lactic acid initially was 2.4, now down to 1.8 -Heart rate initially elevated above 100 trending downward to 91 currently (2) UTI (urinary tract infection): -History of UTI growing out pansensitive Klebsiella -Continue IV Rocephin -Await culture results (3) SSS (sick sinus syndrome): (4) S/P cardiac pacemaker procedure: (5) Hx of non-ST elevation myocardial infarction (NSTEMI): -Patient follows with Dr. Erwin for pacemaker and CAD, pacemaker placed in 2016, several NM over past few years. -Patient previously hospitalized in February 2019 for A. fib with RVR then determined to be focal atrial tachycardia. -Continue on diltiazem 240 mg ER daily -Holding torsemide with bumped creatinine on admission, received IV fluids h owever holding any further fluids at this time as to not volume overload. Possibly can resume diuretic pending BMP tomorrow (6) Systolic and diastolic CHF, chronic: - Appears euvolemic on admission. - Last echo on 05/10/2019 with EF of 55=60% - Holding torsemide secondary to a slight creatinine bump, monitor since was given IV fluids in ER for volume overload (7) CAD (coronary artery disease): (8) PAD (peripheral artery disease): -Previously followed by Dr. Sheffield in [place], s/p left carotid endarterectomy and restented, multiple stents in both legs. Follows with [place] [facility] once yearly, -Continue Plavix -Continue rosuvastatin (9) HLD (hyperlipidemia): -Continue statin therapy as above (10) HTN (hypertension): -Continue diltiazem, Imdur, holding torsemide (11) COPD (chronic obstructive pulmonary disease): -Follows with pulmonology as an outpatient, PFT revealed moderate obstruction without significant improvement after bronchodilator -Continue Spiriva, DuoNebs prn -Continue 2 L O2 HS (12) DM II (diabetes mellitus, type II), controlled: -ISS with Accu-Cheks ACHS, recheck A1c -Continue Januvia -Holding metformin, glimepiride (13) Obesity: -BMI 43.1, diet and exercise to be encouraged -Heart healthy/diabetic diet once more awake (14) Nicotine dependence: -History of such, no longer smokes, no need for nicotine patch (15) Depression with anxiety: -Continue Cymbalta 60 mg daily, Ativan 0.5 mg twice daily prn (16) Diabetic toe ulcer: -Following with [facility] (17) DVT prophylaxis: -Teds, continue Plavix History of Present Illness Primary Care Provider: MANUEL Middleotn This is a 63 yo female with PMHx of HTN, HLD, peripheral edema, chronic systolic and diastolic CHF, history of NSTEMI with multiple stents which occurred in May 2018, PAD s/p aortobifemoral bypass, paroxysmal SVT, sick sinus syndrome, s/p pacemaker, DM type II, COPD, wears supplemental O2 2 L at bedtime, diabetic toe wound for which she sees [facility], chronic low back pain, anemia, hx of tobacco use who presented with acute onset of abdominal pain. The patient is very somnolent and hard to keep awake during my exam, she received 1 dose of Dilaudid 0.5 mg around 6 AM. She reports abdominal pain started at approximately 1 AM in the upper abdomen but then proceeded to worsen and felt generalized, she admits to feeling bloated, reports not having a bowel movement x2 days, no nausea, no vomiting, no diarrhea. He denies any changes in her diet. Patient has what appears to be a urinary tract infection on UA however denies any urinary symptoms including frequency, burning, discharge. Sh e denies any respiratory or cardiac symptoms. She reports that she was in her normal state of health yesterday. Patient has been taking all her medications as scheduled, but missed them this morning. Allergies Allergy/AdvReac Type Severity Reaction Status Date / Time No Known Allergies Allergy Unverified 10/11/19 05:35 Home Medications Home Medications Medication Instructions Recorded Confirmed Type metformin 1,000 mg PO BID 05/13/18 10/11/19 History metoprolol tartrate 100 mg PO BID 05/13/18 10/11/19 History ipratropium 0.5 mg-albuterol 3 mg 3 ml INH Q4H PRN #90 ml 02/24/19 10/11/19 Rx (2.5 mg base)/3 mL nebulization soln lorazepam 0.5 mg tablet 0.5 mg PO BID PRN tab 02/24/19 10/11/19 History glimepiride 1 mg tablet 1 mg PO QAM #90 tab 02/27/19 10/11/19 Rx potassium chloride 10 mEq 10 meq PO BID #180 tab 03/10/19 10/11/19 Rx tablet,extended release ranolazine 500 mg tablet,extended 500 mg PO BID #180 tab 03/27/19 10/11/19 Rx release,12 hr rosuvastatin 40 mg tablet 40 mg PO QAM #90 tab 06/04/19 10/11/19 Rx nitroglycerin 0.4 mg sublingual 0.4 mg SL Q5M PRN #1 tab 06/08/19 10/11/19 History tablet Over Night Pulse OX #1 ea 06/13/19 08/25/19 Rx diltiazem HCl 240 mg 240 mg PO QAM #90 cap 06/16/19 10/11/19 Rx capsule,extended release 24 hr pregabalin 75 mg capsule 75 mg PO TID #90 cap 06/19/19 10/11/19 Rx Januvia 100 mg PO QAM 07/18/19 10/11/19 History Spiriva Respimat 2 puffs INH QAM 07/18/19 10/11/19 History clopidogrel [Plavix] 75 mg PO QAM 07/18/19 10/11/19 History duloxetine 60 mg PO QAM 07/18/19 10/11/19 History isosorbide mononitrate 30 mg PO QAM 07/18/19 10/11/19 History magnesium oxide 400 mg PO QAM 07/18/19 10/11/19 History torsemide 20 mg tablet 30 mg PO DAILY #135 tab 08/14/19 10/11/19 Rx pramipexole 0.75 mg tablet 0.75 mg PO HS #90 tab 08/25/19 10/11/19 Rx albuterol sulfate 90 mcg/actuation 2 puffs INH Q6H PRN #8 gm 10/08/19 10/11/19 Rx aerosol inhaler Past Med/Surg History Medical History ANNETET (acute kidney injury) Altered mental status Anxiety Bulging discs CAD (coronary artery disease) Chronic back pain Combined systolic and diastolic heart failure COPD (chronic obstructive pulmonary disease) Degenerative disc disease Depression with anxiety Diabetic nephropathy DM II (diabetes mellitus, type II), controlled Dyspnea HLD (hyperlipidemia) HTN (hypertension) Hx of non-ST elevation myocardial infarction (NSTEMI) 05/2018 Hyperlipidemia Hypertension (Acute) Hypokalemia Hyponatremia Hypoxia Left ventricular diastolic dysfunction Medical marijuana use Metabolic encephalopathy Myocardial Infarction 05/2018 - [facility] Obesity Pacemaker 05/2015 - Sick sinus syndrome - Last checked 02/2019 ([facility]) - [employer] PAD (peripheral artery disease) Paroxysmal SVT (supraventricular tachycardia) Restless legs Rheumatoid arthritis Spinal stenosis Systolic and diastolic CHF, chronic Tachycardia UTI (urinary tract infection) Weakness Surgical History History of cardiac cath 05/2018 - [place] - NO STENTS/ANGIOPLASTY - COLLATERAL CIRCULATION - FOLLOWS W/ DR. ERWIN History of cataract surgery BILATERAL History of cholecystectomy History of intravascular stent placement Multiple stents in bilateral legs, left subclavian, left aortic mesenteric bypass, left carotid endarterectomy History of oral surgery History of tonsillectomy History of tooth extraction S/P cardiac pacemaker procedure Social History Preferred Language: Albanian Communication Ability: Effective Visual Impairment: No Limitations Load Builder Required: No Beliefs That Will Affect Care: None Current Living Situation: Family Current Living Situation Comment: Lives with sister Other Information That Helps Us Care for You: No Feels Safe at Home: Yes Safety Concerns: Feels Safe At This Time Smoking Status: Former smoker Tobacco Type: cigarettes ; Cigarettes Per Day: VAPES + 2 CIGS PER DAY ; Do You Dip or Chew Tobacco: No ; Second Hand Exposure: No ; Tobacco Cessation Education Requested by Patient: No Hx Alcohol Use: Yes Alcohol type: hard liquor Hx Substance Use: No Review of Systems Review of Systems: Constitutional: No fever, sweats or chills Eyes: No diplopia, no worsening or blurred vision ENT: normal hearing, no trouble swallowing Respiratory: No cough, sputum, dyspnea at rest or on exertion Cardiovascular: No chest pain, tightness or palpitations Abdomen: + Generalized pain, no nausea, vomiting, diarrhea, last BM 2 days ago Musculoskeletal: No joint pain, calf pain, swelling Neurologic: No weakness, numbness/tingling, or balance problems Psychiatric: No anxiety or depression Skin: No rash or itch Physical Exam Physical Exam: General: awakens to loud stimuli and to shoulder shake, somnolent throughout exam, no apparent distress, + obese Head: Normocephalic, atraumatic ENT: PERRL, EOMI, no pharyngeal exudate, mucous membranes moist Chest: Clear to auscultation, on room air, no adventitious breath sounds Cardiac: Regular rate and rhythm, no murmur, no JVD, normal peripheral pulses, good capillary refill Abdominal: NABS x 4 quadrants, soft, + mildly distended, + tender to palpation in the RUQ and suprapubic region specifically, otherwise tender in general, no rebound or guarding Extremities: Normal inspection, no peripheral edema or erythema, calfs nontender to palpation Psych: Normal mood and affect Neuro: AAO x 3, strength intact bilaterally and related 5/5, no motor deficits, speech is clear, no peripheral sensory deficits Skin: no rash or erythema Results & Data Vital Signs (Past 12 Hours) Vital Signs Temp Pulse Pulse Resp BP BP Pulse Ox 10/11/19 08:10 36.8 C 96 H 18 117/56 L 94 10/11/19 07:18 100 H 16 135/65 93 10/11/19 06:00 94 H 20 127/71 92 10/11/19 05:48 96 H 18 168/87 H 90 10/11/19 04:54 37.6 C H 92 H 18 143/[address] angio abdomen pelvis w con HISTORY: Right side abd pain. Hx vascular issues. TECHNIQUE: Multiaxial CT images of the abdomen and pelvis were performed following the use of intravenous contrast to evaluate the major arterial structures. Maximal intensity projection images were also obtained. COMPARISON STUDY: Abdomen and pelvis CT 8 08/20/2018. FINDINGS: The lung bases are clear. No pneumoperitoneum. No acute fractures within the visualized osseous structures. Pacemaker wires are noted. Prior cho lecystectomy. The liver, spleen, adrenal glands, and pancreas are unremarkable. No retroperitoneal lymphadenopathy. There are surgical clips within the right groin. The bladder, uterus, bilateral adnexa are unremarkable. No hydronephrosis. Bilateral cortical renal thinning. Hypodensities within the anterior left kidney remain unchanged and likely represent old infarcts. No hydronephrosis. Left lateral abdominal wall hernia containing multiple loops of small bowel and the splenic flexure of the colon, unchanged. No evidence for bowel obstruction. Focal moderate thickening and pericolonic fat stranding surrounding the cecum. The appendix is not clearly identified. These findings favor a nonspecific colitis. Acute appendicitis cannot be excluded but is considered less likely given the pattern of inflammatory change. Abnormal appearance of the gas within the cecum. This is likely intraluminal. Pneumatosis could also have a similar appearance but is considered less likely. Extensive calcified plaque within the abdominal aorta. No aneurysm identified within the aorta. Focal mild narrowing of the abdominal aorta at the level of the renal arteries. There is mild focal narrowing at the proximal right renal artery. The main left renal artery is patent. Bilateral common iliac artery stents are patent. No significant stenosis within the external iliac arteries. Multifocal narrowing within the bilateral internal there is again noted a common origin of the celiac and superior mesenteric arteries. There is focal moderate narrowing at the takeoff of the superior mesenteric artery due to the calcified plaque. This is best seen on image 113. Iliac arteries with probable occlusion of the proximal left internal iliac artery. IMPRESSION: 1. Focal moderate thickening and pericolonic fat stranding surrounding the cecum. These findings favor a nonspecific colitis and could be due to infectious, inflammatory, or ischemic process. Abnormal appearance of the gas within the cecum. This is likely intraluminal. Pneumatosis could also have a similar appearance but is considered less likely. 2. The appendix is not clearly identified. Acute appendicitis cannot be excluded but is also considered less likely given the pattern of inflammatory change. 3. Common origin of the celiac and superior mesenteric arteries with focal moderate narrowing of approximately 50% at the takeoff of the superior mesenteric artery. 4. Bilateral common iliac artery stents are patent. 5. Additional stable findings as described above. ACT 112: Negative or not required by law. Electronically signed by: Dash Nolasco M.D. 10/11/2019 7:45 AM ECG Additional Comments: 11-OCT-2019 05:31:28 [facility]-EDSTAT ROUTINE RETRIEVAL Normal sinus rhythm Low voltage QRS Borderline ECG When compared with ECG of 03-OCT-2019 11:59, Sinus rhythm has replaced Electronic atrial pacemaker 25mm/s 10mm/mV 150Hz 9.0.9 12SL 241 NATASHA: 13 Referred by: REFERRED SELF Unconfirmed Vent. rate 93 BPM AR interval 184 ms QRS duration 62 ms QT/QTc 352/437 ms P-R-T axes 86 47 59 Code Status & VTE Plan Code Status DNR- discussed with pt at bedside Critical Care Time Critical Care Time: Yes Total Critical Care Time: 32 Supervising Physician Co-Signing Physician Notes During my face to face encounter with the patient, I performed a phsycial examination and obtained a history. I reviewed above document and agree with it. In regards to the plan, I added a few details below: Hypotension and lactic acidosis: Possible sepsis Patient once she arrived to the floor, SHE WAS FOUND TO BE HYPOTENSIVE WITH SBP over 70. Patient was still awake and alert, explaining she had more pain on the right side of her abdomen. Ordered a bolus of fluid as her lungs were clear and not in any signs of congestive heart failure. Concern over colitis and the fact that patient has vascular compromise with SMA stenosis of 50%. Added anaerobic coverage: flagyl. Patient though is a DNR, she was agreeable to the possibility of using vasopressors and getting a CENTRAL LINE if needed. D/W securities broker, will transfer patient to the ICU. Spent over 30 minutes of critical care management as patient was hypotensive, and suffering a life threatening event. PG Care Time/CCT Total # of Minutes Spent Total Time Spent with Patient: Total time spent is greater than 50% in coordination of care (as documented) at patient's floor/unit and/or counseling patient: Critical Care Time: Yes Total Critical Care Time: 32 Coding Level of Care Code 22036 Initial Inpt Care Lvl 3 Diagnoses Abdominal pain R10.9 UTI (urinary tract infection) N39.0 Hematuria presence: without hematuria Urinary tract infection type: site unspecified SSS (sick sinus syndrome) I49.5 S/P cardiac pacemaker procedure Z95.0 Hx of non-ST elevation myocardial infarction (NSTEMI) I25.2 Systolic and diastolic CHF, chronic I50.42 CAD (coronary artery disease) I25.10 Associated angina: without angina Coronary Disease-Associated Artery/Lesion type: [place] artery [place] vs. transplanted heart: [place] heart PAD (peripheral artery disease) I73.9 HLD (hyperlipidemia) E78.2 Hyperlipidemia type: mixed hyperlipidemia HTN (hypertension) I10 Hypertension type: essential hypertension COPD (chronic obstructive pulmonary disease) J44.9 COPD type: unspecified COPD DM II (diabetes mellitus, type II), controlled E11.9 Obesity E66.9 Nicotine dependence F17.200 Depression with anxiety F41.8 Diabetic toe ulcer E11.621; L97.509 DVT prophylaxis Z29.9 Additional Codes Critical Care Time - Critical Care Time: Yes ([id number]) (1) UTI (urinary tract infection) Hematuria presence: without hematuria Urinary tract infection type: site unspecified Qualified Code(s): N39.0 - Urinary tract infection, site not specified (2) CAD (coronary artery disease) Associated angina: without angina Coronary Disease-Associated Artery/Lesion type: [place] artery [place] vs. transplanted heart: [place] heart Qualified Co de(s): I25.10 - Atherosclerotic heart disease of [place] coronary artery without angina pectoris (3) HLD (hyperlipidemia) Hyperlipidemia type: mixed hyperlipidemia Qualified Code(s): E78.2 - Mixed hyperlipidemia (4) COPD (chronic obstructive pulmonary disease) COPD type: unspecified COPD Qualified Code(s): J44.9 - Chronic obstructive pulmonary disease, unspecified (5) HTN (hypertension) Hypertension type: essential hypertension Qualified Code(s): I10 - Essential (primary) hypertension
[2019-10-11] MEDS ORDERED: dilTIAZem HCL 240 MG CAPCR PO SCH (09:45)
[2019-10-11] MEDS ORDERED: METOPROLOL TARTRATE 100 MG TAB PO SCH (09:45)
[2019-10-11] MEDS ORDERED: GLUCOSE 10 TABS/TUBE PO PRN (09:45)
[2019-10-11] MEDS ORDERED: GLUCOSE 40% GEL 15 GM TUBE PO PRN (09:45)
[2019-10-11] MEDS ORDERED: LORazepam 0.5 MG TAB PO PRN (09:45)
[2019-10-11] MEDS ORDERED: GLUCAGON FOR INJ 1 MG VIAL SQ PRN (09:45)
[2019-10-11] MEDS ORDERED: CARBOHYDRATES FOR HYPOGLYCEMIA PO PRN (09:45)
[2019-10-11] MEDS ORDERED: ALBUT/IPRATROP 3MG/0.5MG NEB 3 ML VIAL INH PRN (09:45)
[2019-10-11] MEDS ORDERED: ONDANSETRON INJ 2 MG/ML 2 ML VIAL IV PRN (09:45)
[2019-10-11] MEDS ORDERED: ISOSORBIDE MONO EXTENDED REL 30 MG TABCR PO SCH (09:45)
[2019-10-11] MEDS ORDERED: MoRPHine SULFATE 4 MG/ML 1 ML CARP\\VIAL IV PRN (09:45)
[2019-10-11] MEDS ORDERED: ALBUTEROL HFA 8 GM INHALER INH PRN (09:45)
[2019-10-11] MEDS ORDERED: SITAGLIPTIN PHOSPHATE 100 MG TAB PO SCH (09:45)
[2019-10-11] MEDS ORDERED: NITROGLYCERIN SL 0.4 MG/TAB TAB SL PRN (09:45)
[2019-10-11] MEDS ORDERED: ACETAMINOPHEN 325 MG TAB PO PRN (09:45)
[2019-10-11] MEDS ORDERED: DEXTROSE 50% 50 ML SYRINGE IV PRN (09:45)
[2019-10-11] MEDS: SODIUM CHLORIDE 0.9% 1000ML 1,000 ML IV SCH ×2 (10:11→13:14)
[2019-10-11] MEDS ORDERED: metroNIDAZOLE 500 MG/100 ML BAG IV SCH (10:30)
[2019-10-11] MEDS: ROSUVASTATIN CALCIUM 20 MG TAB PO SCH (10:43)
[2019-10-11] MEDS: MAGNESIUM OXIDE 400 MG TAB PO SCH (10:44)
[2019-10-11] MEDS: POTASSIUM CHLORIDE 10 MEQ TABCR PO SCH ×2 (10:44→20:02)
[2019-10-11] MEDS: CLOPIDOGREL BISULFATE 75 MG TAB PO SCH (10:44)
[2019-10-11] MEDS: DULOXETINE HCL 60 MG CAP PO SCH (10:44)
[2019-10-11] MEDS: RANOLAZINE 500 MG ER TAB PO SCH ×2 (10:44→20:03)
[2019-10-11] MEDS: PREGABALIN 75 MG CAP PO SCH ×3 (10:48→20:02)
[2019-10-11] MEDS: INSULIN ASPART 100 UNITS/ML 3 ML PEN SC SCH ×3 (11:38→20:14)
[2019-10-11] MEDS ORDERED: PIPERACILL/TAZOBAC CONSULT ACTIVE PRN (13:31)
--- NOTE | 2019-10-11 13:47 | Critical Care Consultation ---
Date of Consultation October 11, 2019 Assessment & Plan (1) Hypotension: EKG: Normal sinus rhythm, normal axis, no ST-T wave changes appreciated, QTc 437. Patient had an echo done on 05/10/2019 which showed ejection fraction of 55 to 60% with grade 1 diastolic CHF --Hypotension with lactic acidosis Likely secondary to decreased oral intake with acute colitis. Patient also has dirty urine but denies any dysuria. Lipase within normal limit. Patient with history of Klebsiella in the urine which was pansensitive Follow-up septic work-up, continue with antibiotics covering for Pseudomonas and anaerobes. Give IV fluids. Pain control Strict in and out. Responding to fluids. Lactate trending down. Bedside Ultrasound: Lung: No B-lines bilaterally anteriorly and posteriorly, no pleural effusions bilaterally Heart: Good ejection fraction, RVOT normal in size, no pericardial effusion, IVC collapsed Abdomen: No abdominal fluid, bladder full -- ANNETTE on CKD Follow-up urine lites Monitor BUN/creatinine Avoid nephrotoxic medications Strict ins and outs --Moderate narrowing of superior mesenteric artery Give IV fluids and monitor If there is any worsening will need surgery versus interventional cardiology -- COPD with chronic hypoxic respiratory failure Not in exacerbation Continue with inhaled bronchodilator therapy Patient on Lama inhaler at home along with Ofelia as needed O2 supplementation to keep oxygen between 88 to 92%. -- Morbid obesity With high probability obstructive sleep apnea Needs outpatient polysomnography BiPAP nightly and PRN shortness of breath --Coronary artery disease with peripheral vascular disease Continue with Plavix and statin --Diabetes mellitus type 2 Insulin sliding scale --DVT prophylaxis Heparin --DNR ok to use vasopressors I have personally spent 40 minutes of critical care time in the direct management of this patient. This is a life/limb threatening event. This includes time spent evaluating patient, direct bedside care, chart review, placing orders, interpretation of diagnostic studies, discussion with consultants, patient, and family members, as well as other required patient management activities. This time is exclusive of all separately billable procedures, and teaching time and separate from and in addition to any other critical care service time. Please note the above document was generated using voice recognition software. It may contain grammatical, syntax or spelling errors. (2) Colitis: (3) Coronary artery disease: (4) Obesity: (5) COPD, moderate: (6) SSS (sick sinus syndrome): (7) S/P cardiac pacemaker procedure: History of Present Illness Attending Physician: Delfino Schultz History of Present Illness 63-year-old female with comprehensive past medical history of hypertension, peripheral vascular disease, sick sinus syndrome status post pacemaker, COPD with home O2 2 L nasal cannula at bedtime, coronary artery disease with multiple stents presented to the hospital with complaints of acute sharp abdominal pain which was mostly located in the right lower quadrant and epigastrium associated with nausea. Abdominal pain is nonradiating. Not exacerbated by food. Patient usually goes to bathroom every 2 days. Last bowel movement was 2 days ago. Positive flatulence. No vomiting. No hematuria, no hematuria. Patient denied any dizziness, no dysuria, no diarrhea. Positive subjective fever, no chills. Patient denies any shortness of breath, no chest pain. No weight loss, no night sweats, no recent upper respiratory symptoms. Patient says she usually gets abdominal pain here and there but nothing like this. Social history: Greater than 20-tyrd-yggd smoking history quit January 2019, uses medical marijuana for her low back pain, denies any other illicit drug use, soci al alcohol Has 2 dogs at home which is not allergic to. Denies any seasonal allergies. No personal or family history of lung cancer. Allergies Allergy/AdvReac Type Severity Reaction Status Date / Time No Known Allergies Allergy Unverified 10/11/19 05:35 Home Medications Home Medications Medication Instructions Recorded Confirmed Type metformin 1,000 mg PO BID 05/13/18 10/11/19 History metoprolol tartrate 100 mg PO BID 05/13/18 10/11/19 History ipratropium 0.5 mg-albuterol 3 mg 3 ml INH Q4H PRN #90 ml 02/24/19 10/11/19 Rx (2.5 mg base)/3 mL nebulization soln lorazepam 0.5 mg tablet 0.5 mg PO BID PRN tab 02/24/19 10/11/19 History glimepiride 1 mg tablet 1 mg PO QAM #90 tab 02/27/19 10/11/19 Rx potassium chloride 10 mEq 10 meq PO BID #180 tab 03/10/19 10/11/19 Rx tablet,extended release ranolazine 500 mg tablet,extended 500 mg PO BID #180 tab 07/18/19 02/01/20 Rx release,12 hr rosuvastatin 40 mg tablet 40 mg PO QAM #90 tab 06/04/19 10/11/19 Rx nitroglycerin 0.4 mg sublingual 0.4 mg SL Q5M PRN #1 tab 06/08/19 10/11/19 History tablet Over Night Pulse OX #1 ea 06/13/19 08/25/19 Rx diltiazem HCl 240 mg 240 mg PO QAM #90 cap 06/16/19 10/11/19 Rx capsule,extended release 24 hr pregabalin 75 mg capsule 75 mg PO TID #90 cap 06/19/19 10/11/19 Rx Januvia 100 mg PO QAM 07/18/19 10/11/19 History Spiriva Respimat 2 puffs INH QAM 07/18/19 10/11/19 History clopidogrel [Plavix] 75 mg PO QAM 07/18/19 10/11/19 History duloxetine 60 mg PO QAM 07/18/19 10/11/19 History isosorbide mononitrate 30 mg PO QAM 07/18/19 10/11/19 History magnesium oxide 400 mg PO QAM 07/18/19 10/11/19 History torsemide 20 mg tablet 30 mg PO DAILY #135 tab 08/14/19 10/11/19 Rx pramipexole 0.75 mg tablet 0.75 mg PO HS #90 tab 08/25/19 10/11/19 Rx albuterol sulfate 90 mcg/actuation 2 puffs INH Q6H PRN #8 gm 10/08/19 10/11/19 Rx aerosol inhaler Patient History Medical History (Updated 10/11/19 @ 13:27 by Alberto Borges MD) ANNETTE (acute kidney injury) Altered mental status Anxiety Bulging discs CAD (coronary artery disease) Chronic back pain Combined systolic and diastolic heart failure COPD (chronic obstructive pulmonary disease) Degenerative disc disease Depression with anxiety Diabetic nephropathy DM II (diabetes mellitus, type II), controlled Dyspnea HLD (hyperlipidemia) HTN (hypertension) Hx of non-ST elevation myocardial infarction (NSTEMI) 05/2018 Hyperlipidemia Hypertension (Acute) Hypokalemia Hyponatremia Hypoxia Left ventricular diastolic dysfunction Medical marijuana use Metabolic encephalopathy Myocardial Infarction 05/2018 - [facility] Obesity Pacemaker 05/2015 - Sick sinus syndrome - Last checked 02/2019 ([facility]) - [employer] PAD (peripheral artery disease) Paroxysmal SVT (supraventricular tachycardia) Restless legs Rheumatoid arthritis Spinal stenosis Systolic and diastolic CHF, chronic Tachycardia UTI (urinary tract infection) Weakness Surgical History History of cardiac cath 05/2018 - [place] - NO STENTS/ANGIOPLASTY - COLLATERAL CIRCULATION - FOLLOWS W/ DR. 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 Beliefs That Will Affect Care: None Current Living Situation: Family Current Living Situation Comment: Lives with sister Other Information That Helps Us Care for You: No Feels Safe at Home: Yes Safety Concerns: Feels Safe At This Time Smoking Status: Former smoker Tobacco Type: cigarettes ; Cigarettes Per Day: VAPES + 2 CIGS PER DAY ; Do You Dip or Chew Tobacco: No ; Second Hand Exposure: No ; Tobacco Cessation Education Requested by Patient: No Hx Alcohol Use: Yes Alcohol type: hard liquor Hx Substance Use: No Review of Systems Review of Systems: All systems reviewed & are unremarkable except as noted in HPI & below Physical Exam Physical Exam: Constitutional: No acute distress HEENT: EOMI, PERRLA, dry oral mucous membranes Mallampati 4 Respiratory system: Good air entry bilaterally, no wheeze, no rhonchi, no crackles CVS: S1-S2 positive, no murmurs or gallops Abdomen: Soft, positive epigastric and right lower quadrant tenderness, no rebound, positive bowel sounds x4, obese Extremities: +2 pulses bilateral radialis, +1+ bilateral dorsalis pedis, no cyanosis, no edema Neuro: Awake alert oriented x3 Psych: Normal mood and affect G/U: No Brown Skin: no rashes, warm and dry Lymphatic: no cervical or axillary lymphadenopathy Results & Data ([facility]) Vital Signs (Past 12 Hours) Vital Signs Temp Pulse Pulse Resp BP BP Pulse Ox 10/11/19 10:58 92/52 L 10/11/19 10:51 110/58 L 10/11/19 09:50 36.8 C 90 16 79/54 L 94 10/11/19 09:45 36.8 C 90 16 79/54 L 94 10/11/19 08:58 91 H 18 134/55 L 94 10/11/19 08:10 36.8 C 96 H 18 117/56 L 94 10/11/19 07:18 100 H 16 135/65 93 10/11/19 06:00 94 H 20 127/71 92 10/11/19 05:48 96 H 18 168/87 H 90 10/11/19 04:54 37.6 C H 92 H 18 143/69 H 93 10/11/19 05:20 10/11/19 05:20 [facility] Procedure Codes (Charges) Pulmonary/Thoracic Procedure 1: Pulmonary and Thoracic: 18177 US, Chest, real time with imaging documentation Coding Level of Care Code Critical Care 1st 30-74 mins Diagnoses Hypotension I95.9 Colitis K52.9 Coronary artery disease I25.10 Obesity E66.9 COPD, moderate J44.9 SSS (sick sinus syndrome) I49.5 S/P cardiac pacemaker procedure Z95.0 CPT Codes Pulmonary/Thoracic - Pulmonary and Thoracic: 12530 US, Chest, real time with imaging documentation ([id number]) Time Spent (min) 40
[2019-10-11] MEDS: MoRPHine SULFATE 4 MG/ML 1 ML CARP\\VIAL IV PRN ×3 (13:51→20:32)
[2019-10-11] MEDS ORDERED: PIPERACILLIN/TAZOBACTAM 4.5 GM in DEXTROSE 5% 100 ML IV ONE (14:00)
[2019-10-11] MEDS ORDERED: MAGNESIUM SULFATE / D5W 1 GM/100 ML BAG IV ONE (14:00)
[2019-10-11 17:17] LABS: Potassium Random Urine 17.6 mmol/L
[2019-10-11 17:22] LABS: Uric Acid Urine Random 26.8 mg/dl
[2019-10-11] MEDS: PIPERACILLIN/TAZOBACTAM 4.5 GM in DEXTROSE 5% 100 ML IV SCH (19:55)
[2019-10-11] MEDS ORDERED: PIPERACILLIN/TAZOBACTAM 3.375 GM in DEXTROSE 5% 100 ML IV SCH (20:00)
[2019-10-11] MEDS: PRAMIPEXOLE DIHYDROCHLO 0.25 MG TAB PO SCH (20:02)
[2019-10-11] MEDS: HEPARIN SOD 5,000 UNIT/0.5 ML VIAL SQ SCH (20:13)
--- NOTE | 2019-10-11 22:05 | Electrocardiogram Report ---
Test Reason : Blood Pressure : / mmHG Vent. Rate : 093 BPM Atrial Rate : 093 BPM P-R Int : 184 ms QRS Dur : 062 ms QT Int : 352 ms P-R-T Axes : 086 047 059 degrees QTc Int : 437 ms Normal sinus rhythm Low voltage QRS Borderline ECG When compared with ECG of 03-OCT-2019 11:59, Sinus rhythm has replaced Electronic atrial pacemaker Confirmed by Gen Uriostegui ([id number]) on 10/11/2019 10:04:51 PM Referred By: REFERRED SELF Confirmed By:Gen Uriostegui
[2019-10-12] MEDS: MoRPHine SULFATE 4 MG/ML 1 ML CARP\\VIAL IV PRN ×6 (00:12→23:46)
[2019-10-12] MEDS: PIPERACILLIN/TAZOBACTAM 4.5 GM in DEXTROSE 5% 100 ML IV SCH ×3 (05:01→20:18)
[2019-10-12 05:25] LABS: Albumin Level 2.2 gm/dl (3.4-5.0); Calcium 8.6 mg/dl (8.5-10.1); Creatinine Clr Calc Pharmacy 47.1 ml/min; Est GFR (African American) 42.6; Est GFR (Non-African American) 36.7; Magnesium 1.9 mg/dl (1.8-2.4)
[2019-10-12 05:27] LABS: Hematocrit (blood only) 32.8 % (37-47); Hemoglobin 10.5 g/dL (12.0-16.0); Mean Corpuscular Hemoglobin 27.9 pg (25-34); Mean Platelet Volume 12.4 fL (7.4-10.4); Platelet Count 126 K/uL (130-400); Platelet Estimate Decreased (Normal); RDW Standard Deviation 53.9 fL (36.4-46.3); Red Blood Count 3.77 M/uL (4.2-5.4); White Blood Count 12.61 K/uL (4.8-10.8)
[2019-10-12 05:28] LABS: Albumin Globulin Ratio 0.6 (0.9-2); Bilirubin,Total 0.6 mg/dl (0.2-1); Globulin 3.5 gm/dl (2.5-4.0); Phosphorus 3.3 mg/dl (2.5-4.9); Total Protein 5.7 gm/dl (6.4-8.2)
[2019-10-12] MEDS: UMECLIDINIUM BROMIDE 62.5MCG/BLISTER 7 PUFFS/INHALER INH SCH (07:49)
[2019-10-12] MEDS: HEPARIN SOD 5,000 UNIT/0.5 ML VIAL SQ SCH ×2 (07:49→20:23)
[2019-10-12] MEDS: RANOLAZINE 500 MG ER TAB PO SCH ×2 (07:50→20:24)
[2019-10-12] MEDS: ROSUVASTATIN CALCIUM 20 MG TAB PO SCH (07:50)
[2019-10-12] MEDS: DULOXETINE HCL 60 MG CAP PO SCH (07:50)
[2019-10-12] MEDS: CLOPIDOGREL BISULFATE 75 MG TAB PO SCH (07:50)
[2019-10-12] MEDS: PREGABALIN 75 MG CAP PO SCH ×3 (07:52→20:53)
[2019-10-12] MEDS: MAGNESIUM OXIDE 400 MG TAB PO SCH (07:52)
[2019-10-12] MEDS: POTASSIUM CHLORIDE 10 MEQ TABCR PO SCH ×2 (07:53→20:53)
[2019-10-12] MEDS: INSULIN ASPART 100 UNITS/ML 3 ML PEN SC SCH ×4 (07:55→20:24)
--- NOTE | 2019-10-12 08:20 | Emergency Department Note ---
History of Present Illness General Chief complaint: Abdominal Pain Stated complaint: SEVERE ABDOMINAL AND BACK PAIN Time Seen by Provider: 10/11/19 04:58 History of Present Illness Maximum Pain Intensity: 8 This is a 63-year-old female presenting to the emergency department for severe right-sided abdominal pain beginning a few hours prior to arrival. The patient rates the pain an 8/10, sharp, and persistent. The patient has extensive medical history of diabetes, myocardial infarction, COPD, and diffuse atherosclerotic disease including renal stenting and mesenteric bypass. The sushil amos has not taken anything [id number] for her symptoms. She has nauseated without vomiting. She does not have any injury or trauma. She does not have any recent flulike symptoms but is running a low-grade fever here. She is not having any chest pain, chest tightness, or shortness of breath. No significant lower extremity swelling. She feels like she is using the bathroom as normal. Home Medications Home Medications Medication Instructions Recorded Confirmed Type metformin 1,000 mg PO BID 05/13/18 10/11/19 History metoprolol tartrate 100 mg PO BID 05/13/18 10/11/19 History ipratropium 0.5 mg-albuterol 3 mg 3 ml INH Q4H PRN #90 ml 02/24/19 10/11/19 Rx (2.5 mg base)/3 mL nebulization soln lorazepam 0.5 mg tablet 0.5 mg PO BID PRN tab 02/24/19 10/11/19 History glimepiride 1 mg tablet 1 mg PO QAM #90 tab 02/27/19 10/11/19 Rx potassium chloride 10 mEq 10 meq PO BID #180 tab 03/10/19 10/11/19 Rx tablet,extended release ranolazine 500 mg tablet,extended 500 mg PO BID #180 tab 03/27/19 10/11/19 Rx release,12 hr rosuvastatin 40 mg tablet 40 mg PO QAM #90 tab 06/04/19 10/11/19 Rx nitroglycerin 0.4 mg sublingual 0.4 mg SL Q5M PRN #1 tab 06/08/19 10/11/19 History tablet Over Night Pulse OX #1 ea 06/13/19 08/25/19 Rx diltiazem HCl 240 mg 240 mg PO QAM #90 cap 06/16/19 10/11/19 Rx capsule,extended release 24 hr pregabalin 75 mg capsule 75 mg PO TID #90 cap 06/19/19 10/11/19 Rx Januvia 100 mg PO QAM 07/18/19 10/11/19 History Spiriva Respimat 2 puffs INH QAM 07/18/19 10/11/19 History clopidogrel [Plavix] 75 mg PO QAM 07/18/19 10/11/19 History duloxetine 60 mg PO QAM 07/18/19 10/11/19 History isosorbide mononitrate 30 mg PO QAM 07/18/19 10/11/19 History magnesium oxide 400 mg PO QAM 07/18/19 10/11/19 History torsemide 20 mg tablet 30 mg PO DAILY #135 tab 08/14/19 10/11/19 Rx pramipexole 0.75 mg tablet 0.75 mg PO HS #90 tab 08/25/19 10/11/19 Rx albuterol sulfate 90 mcg/actuation 2 puffs INH Q6H PRN #8 gm 10/08/19 10/11/19 Rx aerosol inhaler Allergies Allergy/AdvReac Type Severity Reaction Status Date / Time No Known Allergies Allergy Unverified 10/11/19 05:35 Past Med/Surg History Medical History ANNETTE (acute kidney injury) Altered mental status Anxiety Bulging discs CAD (coronary artery disease) Chronic back pain Combined systolic and diastolic heart failure COPD (chronic obstructive pulmonary disease) Degenerative disc disease Depression with anxiety Diabetic nephropathy DM II (diabetes mellitus, type II), controlled Dyspnea HLD (hyperlipidemia) HTN (hypertension) Hx of non-ST elevation myocardial infarction (NSTEMI) 05/2018 Hyperlipidemia Hypertension (Acute) Hypokalemia Hyponatremia Hypoxia Left ventricular diastolic dysfunction Medical marijuana use Metabolic encephalopathy Myocardial Infarction 05/2018 - [facility] Obesity Pacemaker 05/2015 - Sick sinus syndrome - Last checked 02/2019 ([facility]) - [employer] PAD (peripheral artery disease) Paroxysmal SVT (supraventricular tachycardia) Restless legs Rheumatoid arthritis Spinal stenosis Systolic and diastolic CHF, chronic Tachycardia UTI (urinary tract infection) Weakness Surgical History History of cardiac cath 05/2018 - [place] - NO STENTS/ANGIOPLASTY - COLLATERAL CIRCULATION - FOLLOWS W/ DR. 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 Beliefs That Will Affect Care: None Current Living Situation: Family Current Living Situation Comment: Lives with sister Other Information That Helps Us Care for You: No Feels Safe at Home: Yes Safety Concerns: Feels Safe At This Time Smoking Status: Former smoker Tobacco Type: cigarettes ; Cigarettes Per Day: VAPES + 2 CIGS PER DAY ; Do You Dip or Chew Tobacco: No ; Second Hand Exposure: No ; Tobacco Cessation Education Requested by Patient: No Hx Alcohol Use: Yes Alcohol type: hard liquor Hx Substance Use: No Review of Systems A total of 10 systems reviewed and were otherwise negative Physical Exam Vital Signs Vital Signs Temp Pulse Resp BP Pulse Ox 37.6 C H 92 H 18 143/69 H 93 10/11/19 04:54 10/11/19 04:54 10/11/19 04:54 10/11/19 04:54 10/11/19 04:54 VITALS: Vitals are noted on the nurse's note and reviewed by myself. Vital signs stable. GENERAL: White female who appears older than her stated age and is in moderate to severe distress. She is quite uncomfortable on my presentation to the room. She is splinting the right side of her abdomen with her right hand. HEAD: Normocephalic atraumatic. EYES: Pupils equal round and reactive to light and accommodation. Conjunctivae without injection, sclerae without icterus. Extraocular movements intact. NECK: Supple without nuchal rigidity. No lymphadenopathy. No thyromegaly. Cervical spine is nontender. HEART: Regular rate and rhythm without murmurs gallops or rubs. LUNGS: Diffuse wheezing throughout ABDOMEN: Positive normal bowel sounds x 4. Soft with significant right-sided tenderness. Exam is somewhat limited as palpation in the anterior abdomen causes significant patient discomfort MUSCULOSKELETAL: No muscle atrophy, erythema, or edema noted. Full range of motion in all extremities. NEURO: Patient was alert and oriented to person place and time. CN II through X II grossly intact. SKIN: The skin was without rashes, erythema, edema, or bruising. Capillary refi ll less than 2 seconds. Course Administered Medications Clopidogrel Bisulfate (Plavix) 75 mg PO [facility] Stop: 11/10/19 09:44 Last Admin: 10/12/19 07:50 Dose: 75 mg Documented by: [id number] Admin: 10/11/19 10:44 Dose: 75 mg Documented by: [id number] Duloxetine HCl (Cymbalta) 60 mg PO [facility] Stop: 11/10/19 09:44 Last Admin: 10/12/19 07:50 Dose: 60 mg Documented by: [id number] Admin: 10/11/19 10:44 Dose: 60 mg Documented by: [id number] Heparin Sodium (Porcine) (Heparin Sodium (Porcine)) 5,000 units SQ Q12 [facility] Stop: 11/10/19 20:59 Last Admin: 10/12/19 07:49 Dose: 5,000 units Documented by: [id number] Cosigned by: [id number] Admin: 10/11/19 20:13 Dose: 5,000 units Documented by: [id number] Cosigned by: [id number] Piperacillin Sod/Tazobactam (Sod 4.5 gm/ Dextrose) 120 mls @ 30 mls/hr IV Q8H [facility]; Protocol Stop: 10/13/19 23:59 Last Admin: 10/12/19 05:01 Dose: 30 mls/hr Documented by: [id number] Infusion: 10/12/19 00:12 Dose: 0 mls/hr Documented by: [id number] Admin: 10/11/19 19:55 Dose: 30 mls/hr Documented by: [id number] Insulin Aspart (Novolog Flexpen) 0 units SC ACHS [facility] Stop: 11/10/19 11:29 Last Admin: 10/12/19 07:55 Dose: 3 units Documented by: [id number] Cosigned by: [id number] Admin: 10/11/19 20:14 Dose: 1 units Documented by: [id number] Cosigned by: [id number] Admin: 10/11/19 18:20 Dose: 3 units Documented by: [id number] Cosigned by: [id number] Admin: 10/11/19 11:38 Dose: 6 units Documented by: [id number] Cosigned by: [id number] Magnesium Oxide (Mag-Ox) 400 mg PO QAM [facility] Stop: 11/10/19 09:44 Last Admin: 10/12/19 07:52 Dose: 400 mg Documented by: [id number] Admin: 10/11/19 10:44 Dose: 400 mg Documented by: [id number] Morphine Sulfate (Morphine Sulfate) 2 mg IV Q2H PRN PRN Reason: Pain Stop: 10/25/19 09:44 Last Admin: 10/12/19 07:45 Dose: 2 mg Documented by: [id number] Admin: 10/12/19 00:12 Dose: 2 mg Documented by: [id number] Admin: 10/11/19 20:32 Dose: 2 mg Documented by: [id number] Admin: 10/11/19 16:14 Dose: 2 mg Documented by: [id number] Admin: 10/11/19 13:51 Dose: 2 mg Documented by: [id number] Potassium Chloride (Klor-Con M10) 10 meq PO BID [facility] Stop: 11/10/19 09:44 Last Admin: 10/12/19 07:53 Dose: 10 meq Documented by: [id number] Admin: 10/11/19 20:02 Dose: 10 meq Documented by: [id number] Admin: 10/11/19 10:44 Dose: 10 meq Documented by: [id number] Pramipexole Dihydrochloride (Mirapex) 0.75 mg PO HS [facility] Stop: 11/10/19 20:59 Last Admin: 10/11/19 20:02 Dose: 0.75 mg Documented by: [id number] Pregabalin (Lyrica) 75 mg PO TID [facility] Stop: 11/10/19 09:44 Last Admin: 10/12/19 07:52 Dose: 75 mg Documented by: [id number] Admin: 10/11/19 20:02 Dose: 75 mg Documented by: [id number] Admin: 10/11/19 15:32 Dose: Not Given Documented by: [id number] Admin: 10/11/19 10:48 Dose: 75 mg Documented by: [id number] Ranolazine (Ranexa) 500 mg PO BID [facility] Stop: 11/10/19 09:44 Last Admin: 10/12/19 07:50 Dose: 500 mg Documented by: [id number] Admin: 10/11/19 20:03 Dose: 500 mg Documented by: [id number] Admin: 10/11/19 10:44 Dose: 500 mg Documented by: [id number] Rosuvastatin Calcium (Crestor) 40 mg PO [facility] Stop: 11/10/19 09:44 Last Admin: 10/12/19 07:50 Dose: 40 mg Documented by: [id number] Admin: 10/11/19 10:43 Dose: 40 mg Documented by: [id number] Umeclidinium [place] (Incruse Ellipta) 1 puffs INH [facility] Stop: 11/11/19 08:59 Last Admin: 10/12/19 07:49 Dose: 1 puffs Documented by: [id number] Discontinued Medications Diltiazem HCl (Cardizem Cd) 240 mg PO [facility] Stop: 11/10/19 09:44 Last Admin: 10/11/19 10:43 Dose: Not Given Documented by: [id number] Hydromorphone HCl (Dilaudid) 0.5 mg IV Q15M PRN PRN Reason: Pain Stop: 10/25/19 05:13 Last Admin: 10/11/19 05:45 Dose: 0.5 mg Documented by: [id number] Sodium Chloride (Nss 1000ml) 1,000 mls @ 125 mls/hr IV .Q8H [facility] Stop: 11/10/19 05:14 Last Infusion: 10/11/19 10:24 Dose: 0 mls/hr Documented by: [id number] Admin: 10/11/19 05:45 Dose: 125 mls/hr Documented by: [id number] Acetaminophen (Ofirmev) 1,000 mg in 100 mls @ 400 mls/hr IV NOW STA Stop: 10/11/19 06:21 Last Infusion: 10/11/19 07:43 Dose: 0 mls/hr Documented by: [id number] Admin: 10/11/19 07:28 Dose: 400 mls/hr Documented by: [id number] Ceftriaxone Sodium (Rocephin) 2,000 mg in 70 mls @ 140 mls/hr IV NOW STA Stop: 10/11/19 07:00 Last Infusion: 10/11/19 07:27 Dose: 0 mls/hr Documented by: [id number] Admin: 10/11/19 06:49 Dose: 140 mls/hr Documented by: [id number] Sodium Chloride (Nss 1000ml) 1,000 mls @ 999 mls/hr IV .Q1H1M [facility] Stop: 10/11/19 12:00 Last Infusion: 10/11/19 14:04 Dose: 0 mls/hr Documented by: [id number] Admin: 10/11/19 13:14 Dose: 999 mls/hr Documented by: [id number] Infusion: 10/11/19 11:15 Dose: 0 mls/hr Documented by: [id number] Admin: 10/11/19 10:11 Dose: 999 mls/hr Documented by: [id number] Metronidazole (Flagyl) 500 mg in 100 mls @ 100 mls/hr IV Q8H [facility] Stop: 10/21/19 10:29 Last Infusion: 10/11/19 14:04 Dose: 0 mls/hr Documented by: [id number] Admin: 10/11/19 11:39 Dose: 100 mls/hr Documented by: [id number] Magnesium Sulfate/Dextrose (Magnesium Sulfate / D5w) 1 gm in 100 mls @ 100 mls/hr IV ONE ONE Stop: 10/11/19 14:59 Last Infusion: 10/11/19 16:22 Dose: 0 mls/hr Documented by: [id number] Admin: 10/11/19 14:56 Dose: 100 mls/hr Documented by: [id number] Piperacillin Sod/Tazobactam (Sod 4.5 gm/ Dextrose) 120 mls @ 240 mls/hr IV ONE ONE; Protocol Stop: 10/11/19 14:29 Last Infusion: 10/11/19 16:22 Dose: 0 mls/hr Documented by: [id number] Admin: 10/11/19 15:32 Dose: 240 mls/hr Documented by: [id number] Ioversol (Optiray 320 125ml) 118 ml IV ONCE PRN PRN Reason: Interaction Checking Stop: 10/15/19 06:27 Last Admin: 10/11/19 06:29 Dose: 1 ml Documented by: [id number] Isosorbide Mononitrate (Imdur Extended Rel) 30 mg PO QAM [facility] Stop: 11/10/19 09:44 Last Admin: 10/11/19 10:43 Dose: Not Given Documented by: [id number] Metoprolol Tartrate (Lopressor) 100 mg PO BID [facility] Stop: 11/10/19 09:44 Last Admin: 10/11/19 10:44 Dose: Not Given Documented by: [id number] Ondansetron HCl (Zofran) 4 mg IV NOW STA Stop: 10/11/19 05:15 Last Admin: 10/11/19 05:45 Dose: 4 mg Documented by: [id number] Sitagliptin Phosphate (Januvia) 100 mg PO QAM [facility] Stop: 11/10/19 09:44 Last Admin: 10/11/19 10:44 Dose: 100 mg Documented by: [id number] Medical Decision Making Differential Diagnosis Differential diagnosis: Etiologies such as vascular catastrophe, biliary colic, cholecystitis, hepatitis, pancreatitis, cardiac disease, pancreatitis, gastritis, peptic ulcer disease, appendicitis, cystitis, diverticulitis, mesenteric ischemia, inflammatory bowel disease, ileus, bowel obstruction, testicular/adnexal torsion, aortic pathology, shingles, as well as others were considered Laboratory Data Result diagrams: 10/12/19 04:47 10/12/19 04:47 Lab Results 10/11/19 10/11/19 10/11/19 Range/Units 05:20 05:20 05:20 WBC 16.89 H (4.8-10.8) K/uL RBC 4.42 (4.2-5.4) M/uL Hgb 12.3 (12.0-16.0) g/dL Hct 38.2 (37-47) % MCV 86.4 (80-100) fL MCH 27.8 (25-34) pg MCHC 32.2 (32-36) g/dL RDW Std Deviation 52.1 H (36.4-46.3) fL RDW Coeff of Tosin 16.5 H (11.5-14.5) % Plt Count 168 (130-400) K/uL MPV 12.3 H (7.4-10.4) fL Immature Gran % (Auto) 0.2 % Neut % (Auto) 89.1 % Lymph % (Auto) 4.9 % [place] % (Auto) 5.7 % Eos % (Auto) 0.0 % Baso % (Auto) 0.1 % Immature Gran # (Auto) 0.04 H (0.00-0.02) K/uL Neut # (Auto) 15.05 H (1.4-6.5) K/uL Lymph # (Auto) 0.83 L (1.2-3.4) K/uL [place] # (Auto) 0.96 H (0.11-0.59) K/uL Eos # (Auto) 0.00 (0-0.5) K/uL Baso # (Auto) 0.01 (0-0.2) K/uL RBC Morphology Unremarkable PT 11.3 (9.0-12.0) Seconds INR 1.1 (0.9-1.1) APTT 29.6 (21.0-31.0) Seconds PTT Ratio 1.1 Sodium 133 L (136-145) mmol/L Potassium 4.1 D (3.5-5.1) mmol/L Chloride 97 L (98-107) mmol/L Carbon Dioxide 28 (21-32) mmol/L Anion Gap 8.0 (3-11) BUN 24 H (7-18) mg/dl Creatinine 1.63 H (0.6-1.2) mg/dl Est Cr Clr Drug Dosing 43.1 ml/min Est GFR ( Amer) 38.2 Est GFR (Non-Af Amer) 33.0 BUN/Creatinine Ratio 14.9 (10-20) Glucose 238 H (70-99) mg/dl Lactate (0.4-2.0) mmol/L Calcium 8.7 (8.5-10.1) mg/dl Magnesium 1.6 L (1.8-2.4) mg/dl Total Bilirubin 0.5 (0.2-1) mg/dl AST 16 (15-37) U/L ALT 22 (12-78) U/L Alkaline Phosphatase 123 H (45-117) U/L Troponin I < 0.015 (0-0.045) ng/ml Total Protein 6.7 (6.4-8.2) gm/dl Albumin 2.8 L (3.4-5.0) gm/dl Globulin 3.9 (2.5-4.0) gm/dl Albumin/Globulin Ratio 0.7 L (0.9-2) Lipase 46 L (73-393) U/L Procalcitonin (0-0.5) ng/ml Urine Color Urine Appearance (Clear) Urine pH (4.5-7.5) Ur Specific [place] (1.000-1.030) Urine Protein (Negative) Urine Glucose (UA) (Negative) Urine Ketones (Negative) Urine Blood (Negative) Urine Nitrite (Negative) Urine Bilirubin (Negative) Urine Urobilinogen (Negative) Ur Leukocyte Esterase (Negative) Urine WBC (Auto) (0-5) /hpf Urine RBC (Auto) (0-4) /hpf U Hyaline Cast (Auto) (0-5) /lpf U Epithel Cells (Auto) (0-5) /lpf Urine Bacteria (Auto) (Negative) Influenza Type A Ag (Neg) Influenza Type B Ag (Neg) 10/11/19 10/11/19 10/11/19 Range/Units 05:20 05:20 05:50 WBC (4.8-10.8) K/uL RBC (4.2-5.4) M/uL Hgb (12.0-16.0) g/dL Hct (37-47) % MCV (80-100) fL MCH (25-34) pg MCHC (32-36) g/dL RDW Std Deviation (36.4-46.3) fL RDW Coeff of Tosin (11.5-14.5) % Plt Count (130-400) K/uL MPV (7.4-10.4) fL Immature Gran % (Auto) % Neut % (Auto) % Lymph % (Auto) % [place] % (Auto) % Eos % (Auto) % Baso % (Auto) % Immature Gran # (Auto) (0.00-0.02) K/uL Neut # (Auto) (1.4-6.5) K/uL Lymph # (Auto) (1.2-3.4) K/uL [place] # (Auto) (0.11-0.59) K/uL Eos # (Auto) (0-0.5) K/uL Baso # (Auto) (0-0.2) K/uL RBC Morphology PT (9.0-12.0) Seconds INR (0.9-1.1) APTT (21.0-31.0) Seconds PTT Ratio Sodium (136-145) mmol/L Potassium (3.5-5.1) mmol/L Chloride (98-107) mmol/L Carbon Dioxide (21-32) mmol/L Anion Gap (3-11) BUN (7-18) mg/dl Creatinine (0.6-1.2) mg/dl Est Cr Clr Drug Dosing ml/min Est GFR ( Amer) Est GFR (Non-Af Amer) BUN/Creatinine Ratio (10-20) Glucose (70-99) mg/dl Lactate 2.4 H* (0.4-2.0) mmol/L Calcium (8.5-10.1) mg/dl Magnesium (1.8-2.4) mg/dl Total Bilirubin (0.2-1) mg/dl AST (15-37) U/L ALT (12-78) U/L Alkaline Phosphatase (45-117) U/L Troponin I (0-0.045) ng/ml Total Protein (6.4-8.2) gm/dl Albumin (3.4-5.0) gm/dl Globulin (2.5-4.0) gm/dl Albumin/Globulin Ratio (0.9-2) Lipase (73-393) U/L Procalcitonin 0.44 (0-0.5) ng/ml Urine Color Yellow Urine Appearance Cloudy A (Clear) Urine pH 6.5 (4.5-7.5) Ur Specific [place] 1.018 (1.000-1.030) Urine Protein 1+ H (Negative) Urine Glucose (UA) 3+ H (Negative) Urine Ketones Negative (Negative) Urine Blood Negative (Negative) Urine Nitrite Positive A (Negative) Urine Bilirubin Negative (Negative) Urine Urobilinogen Negative (Negative) Ur Leukocyte Esterase Trace H (Negative) Urine WBC (Auto) 5-10 H (0-5) /hpf Urine RBC (Auto) 0-4 (0-4) /hpf U Hyaline Cast (Auto) 0 (0-5) /lpf U Epithel Cells (Auto) >30 H (0-5) /lpf Urine Bacteria (Auto) 2+ H (Negative) Influenza Type A Ag (Neg) Influenza Type B Ag (Neg) 10/11/19 10/11/19 Range/Units 06:20 07:09 WBC (4.8-10.8) K/uL RBC (4.2-5.4) M/uL Hgb (12.0-16.0) g/dL Hct (37-47) % MCV (80-100) fL MCH (25-34) pg MCHC (32-36) g/dL RDW Std Deviation (36.4-46.3) fL RDW Coeff of Tosin (11.5-14.5) % Plt Count (130-400) K/uL MPV (7.4-10.4) fL Immature Gran % (Auto) % Neut % (Auto) % Lymph % (Auto) % [place] % (Auto) % Eos % (Auto) % Baso % (Auto) % Immature Gran # (Auto) (0.00-0.02) K/uL Neut # (Auto) (1.4-6.5) K/uL Lymph # (Auto) (1.2-3.4) K/uL [place] # (Auto) (0.11-0.59) K/uL Eos # (Auto) (0-0.5) K/uL Baso # (Auto) (0-0.2) K/uL RBC Morphology PT (9.0-12.0) Seconds INR (0.9-1.1) APTT (21.0-31.0) Seconds PTT Ratio Sodium (136-145) mmol/L Potassium (3.5-5.1) mmol/L Chloride (98-107) mmol/L Carbon Dioxide (21-32) mmol/L Anion Gap (3-11) BUN (7-18) mg/dl Creatinine (0.6-1.2) mg/dl Est Cr Clr Drug Dosing ml/min Est GFR ( Amer) Est GFR (Non-Af Amer) BUN/Creatinine Ratio (10-20) Glucose (70-99) mg/dl Lactate 1.8 (0.4-2.0) mmol/L Calcium (8.5-10.1) mg/dl Magnesium (1.8-2.4) mg/dl Total Bilirubin (0.2-1) mg/dl AST (15-37) U/L ALT (12-78) U/L Alkaline Phosphatase (45-117) U/L Troponin I (0-0.045) ng/ml Total Protein (6.4-8.2) gm/dl Albumin (3.4-5.0) gm/dl Globulin (2.5-4.0) gm/dl Albumin/Globulin Ratio (0.9-2) Lipase (73-393) U/L Procalcitonin (0-0.5) ng/ml Urine Color Urine Appearance (Clear) Urine pH (4.5-7.5) Ur Specific [place] (1.000-1.030) Urine Protein (Negative) Urine Glucose (UA) (Negative) Urine Ketones (Negative) Urine Blood (Negative) Urine Nitrite (Negative) Urine Bilirubin (Negative) Urine Urobilinogen (Negative) Ur Leukocyte Esterase (Negative) Urine WBC (Auto) (0-5) /hpf Urine RBC (Auto) (0-4) /hpf U Hyaline Cast (Auto) (0-5) /lpf U Epithel Cells (Auto) (0-5) /lpf Urine Bacteria (Auto) (Negative) Influenza Type A Ag Neg for Influ A (Neg) Influenza Type B Ag Neg for Influ B (Neg) Imaging Data Radiologist's Impression: CT angio abdomen pelvis w con HISTORY: Right side abd pain. Hx vascular issues. TECHNIQUE: Multiaxial CT images of the abdomen and pelvis were performed f ollowing the use of intravenous contrast to evaluate the major arterial structures. Maximal intensity projection images were also obtained. COMPARISON STUDY: Abdomen and pelvis CT 8 08/20/2018. FINDINGS: The lung bases are clear. No pneumoperitoneum. No acute fractures within the visualized osseous structures. Pacemaker wires are noted. Prior cholecystectomy. The liver, spleen, adrenal glands, and pancreas are unremarkable. No retroperitoneal lymphadenopathy. There are surgical clips within the right groin. The bladder, uterus, bilateral adnexa are unremarkable. No hydronephrosis. Bilateral cortical renal thinning. Hypodensities within the anterior left kidney remain unchanged and likely represent old infarcts. No hydronephrosis. Left lateral abdominal wall hernia containing multiple loops of small bowel and the splenic flexure of the colon, unchanged. No evidence for bowel obstruction. Focal moderate thickening and pericolonic fat stranding surrounding the cecum. The appendix is not clearly identified. These findings favor a nonspecific colitis. Acute appendicitis cannot be excluded but is considered less likely given the pattern of inflammatory change. Abnormal appearance of the gas within the cecum. This is likely intraluminal. Pneumatosis could also have a similar appearance but is considered less likely. Extensive calcified plaque within the abdominal aorta. No aneurysm identified within the aorta. Focal mild narrowing of the abdominal aorta at the level of the renal arteries. There is mild focal narrowing at the proximal right renal artery. The main left renal artery is patent. Bilateral common iliac artery stents are patent. No significant stenosis within the external iliac arteries. Multifocal narrowing within the bilateral internal there is again noted a common origin of the celiac and superior mesenteric arteries. There is focal moderate narrowing at the takeoff of the superior mesenteric artery due to the calcified plaque. This is best seen on image 113. Iliac arteries with probable occlusion of the proximal left internal iliac artery. IMPRESSION: 1. Focal moderate thickening and pericolonic fat stranding surrounding the cecum. These findings favor a nonspecific colitis and could be due to infectious, inflammatory, or ischemic process. Abnormal appearance of the gas within the cecum. This is likely intraluminal. Pneumatosis could also have a similar appearance but is considered less likely. 2. The appendix is not clearly identified. Acute appendicitis cannot be excluded but is also considered less likely given the pattern of inflammatory change. 3. Common origin of the celiac and superior mesenteric arteries with focal moderate narrowing of approximately 50% at the takeoff of the superior mesenteric artery. 4. Bilateral common iliac artery stents are patent. 5. Additional stable findings as described above. ECG Data Additional Comments: Normal sinus rhythm @93 bpm Low voltage QRS Borderline ECG When compared with ECG of 03-OCT-2019 11:59, Sinus rhythm has replaced Electronic atrial pacemaker Blood Pressure Blood Pressure Disposition: further management by hospitalist [facility] Narrative Physical exam and history were performed. Nursing notes, EMR, and Medication List were personally reviewed. Patient appears to have right-sided abdominal pain bringing her to the ER. On examination she appears quite uncomfortable and exam is somewhat limited secondary to her pain. IV access was established and labs were obtained. EKG was performed as above and she was placed on the adjunct history instructor. Lactic acid and blood cultures were gathered. She was given IV Dilaudid and Zofran for comfort. She was hydrated with normal saline and out of concern for possible vascular catastrophe the patient was sent to CT scan immediately for angiography of the abdomen and pelvis. The patient's blood work is as above and was reviewed. She does have an elevated white blood cell count of 16,000. She does have some anemia, however this does seem somewhat chronic. Lipase and transaminases were not diagnostic. Lactic acid is elevated at 2.4. Urine is highly suggestive of infection, and previous cultures seem to reveal a pansensitive Klebsiella. She certainly could be uroseptic and was given IV Rocephin here in the ER. CT scan was performed and reviewed by myself and radiology. Thankfully she does not appear to have vascular etiology of her symptoms. She does have a nonspecific colitis, which certainly could be contributing to her symptoms as well. I did hydrate her after CT she does have some baseline kidney disease. On reevaluation the patient was resting much more comfortable after pain medication. She continues to have mild pain on palpation, but her vital signs have significantly improved. I discussed options of care with the patient, and she does not appear well for discharge home. I have considerable concern for sepsis/colitis causing her symptoms. She has significant comorbidities and will be best managed as an inpatient. The case was discussed with the on-call hospital team who agreed to evaluate the patient here in the ER. Please see their dictation for further patient course, plan, and disposition. The chart was completed utilizing [employer] Speech Voice Recognition Software. Grammatical errors, random word insertions, pronoun errors, and incomplete sentences are an occasional consequence of this system due to software limitations, ambient noise, and hardware issues. Any formal questions or concerns about the content, text, or information contained within the body of this dictation should be directly addressed to the provider for clarification. . Impression & Plan Right sided abdominal pain, Colitis, Acute UTI Discharge Plan Visit Data *Final* Discharge Date/Time: 10/11/19 08:58 Chief Complaint: Abdominal Pain Stated Complaint: SEVERE ABDOMINAL AND BACK PAIN ED Provider: Donita Montano ED Midlevel Provider: Rei Lindsey Discharge Problem: Right sided abdominal pain, Colitis, Acute UTI Patient Disposition: Admitted As Inpatient Discharge Instructions Interventions: ED Discharge Assessment Last Done: 10/11/19 08:58
[2019-10-12] MEDS ORDERED: DOCUSATE SODIUM 100 MG CAP PO ONE (08:30)
--- NOTE | 2019-10-12 08:31 | Critical Care Progress Note ---
Date of Service October 12, 2019 Assessment & Plan (1) Hypotension: EKG: Normal sinus rhythm, normal axis, no ST-T wave changes appreciated, QTc 437. Patient had an echo done on 05/10/2019 which showed ejection fraction of 55 to 60% with grade 1 diastolic CHF --Status post hypotension with lactic acidosis Likely secondary to decreased oral intake with acute colitis. Patient also has dirty urine but denies any dysuria. Lipase within normal limit. Patient with history of Klebsiella in the urine which was pansensitive. Urine culture growing E. coli follow-up sensitivity Follow-up septic work-up, procalcitonin 2.71,CRP 6.71, ESR 37 Continue with antibiotics covering for Pseudomonas and anaerobes. Pain control Strict in and out. -- ANNETTE on CKD Improving Monitor BUN/creatinine Avoid nephrotoxic medications Strict ins and outs --Moderate narrowing of superior mesenteric artery Give IV fluids and monitor If there is any worsening will need surgery versus interventional cardiology -- COPD with chronic hypoxic respiratory failure Not in exacerbation Continue with inhaled bronchodilator therapy Patient on Lama inhaler at home along with Ofelia as needed O2 supplementation to keep oxygen between 88 to 92%. -- Morbid obesity With high probability obstructive sleep apnea Needs outpatient polysomnography BiPAP nightly and PRN shortness of breath --Coronary artery disease with peripheral vascular disease Continue with Plavix and statin --Diabetes mellitus type 2 Insulin sliding scale --DVT prophylaxis Heparin --DNR ok to use vasopressors Plan: Patient is hemodynamically stable to be downgraded to medical floor. We will start the patient on Colace as the patient has history of constipation. Pain management for the abdominal pain. Mildly elevated alk phos with normal AST ALT. Follow-up GGT I have personally spent 30 minutes of critical care time in the direct management of this patient. This is a life/limb threatening event. This includes time spent evaluating patient, direct bedside care, chart review, placing orders, interpretation of diagnostic studies, discussion with consultants, patient, and family members, as well as other required patient management activities. This time is exclusive of all separately billable procedures, and teaching time and separate from and in addition to any other critical care service time. Please note the above document was generated using voice recognition software. It may contain grammatical, syntax or spelling errors. (2) Colitis: (3) Coronary artery disease: (4) Obesity: (5) COPD, moderate: (6) SSS (sick sinus syndrome): (7) S/P cardiac pacemaker procedure: Subjective Patient seen and examined at bedside. No acute distress, no adverse events overnight. Still complains of abdominal pain it has decreased in intensity to some extent. No bowel movement, denies any flatulence. Tolerating clear liquids. No nausea or vomiting No shortness of breath, no chest pain, no headache, no dizziness, no blurry vision. Review of Systems Review of Systems: All systems reviewed & are unremarkable except as noted in HPI & below Physical Exam Physical Exam: Constitutional: No acute distress HEENT: EOMI, PERRLA, moist mucous membranes, Mallampati 4 Respiratory system: Good air entry bilaterally, no wheeze, no rhonchi, no crackles CVS: S1-S2 positive, no murmurs or gallops Abdomen: Soft, positive epigastric and right lower quadrant tenderness, no r ebound, positive bowel sounds x4, obese Extremities: +2 pulses bilateral radialis, +1+ bilateral dorsalis pedis, no cyanosis, no edema Neuro: Awake alert oriented x3 Psych: Normal mood and affect G/U: No Brown Skin: no rashes, warm and dry Lymphatic: no cervical or axillary lymphadenopathy Results & Data ([facility]) Vital Signs (Past 12 Hours) Vital Signs Temp Pulse Pulse Resp BP BP Pulse Ox 10/12/19 04:50 37.4 C 97 H 18 93 10/12/19 04:40 96 H 16 92 10/12/19 04:30 95 H 20 92 10/12/19 04:20 102 H 20 93 10/12/19 04:10 98 H 16 10/12/19 04:00 96 H 16 108/68 95 10/12/19 03:50 96 H 14 93 10/12/19 03:40 96 H 18 94 10/12/19 03:30 96 H 15 94 10/12/19 03:20 96 H 20 93 10/12/19 03:10 96 H 19 91 10/12/19 03:00 96 H 16 109/57 L 90 10/12/19 02:50 98 H 22 94 10/12/19 02:40 93 H 19 92 10/12/19 02:30 93 H 19 93 10/12/19 02:20 94 H 30 H 93 10/12/19 02:10 94 H 23 92 10/12/19 02:01 93 H 25 H 108/66 94 10/12/19 02:00 93 H 27 H 93 02 01:50 93 H 30 H 94 10/12/19 01:40 92 H 19 92 10/12/19 01:30 36.7 C 91 H 28 H 94 10/12/19 01:20 91 H 30 H 93 10/12/19 01:10 91 H 24 92 10/12/19 01:00 95 H 18 91/67 L 91 10/12/19 00:50 92 H 17 93 10/12/19 00:40 93 H 16 93 10/12/19 00:30 92 H 14 96 10/12/19 00:20 93 H 16 92 10/12/19 00:10 94 H 13 95 10/12/19 00:06 97 H 20 118/92 94 10/12/19 00:03 100 H 19 93 10/11/19 23:50 93 H 15 93 10/11/19 23:40 93 H 16 93 10/11/19 23:30 94 H 15 94 10/11/19 23:24 93 H 10/11/19 23:20 94 H 14 93 10/11/19 23:16 10/11/19 23:10 93 H 15 94 10/11/19 23:00 94 H 19 108/78 93 10/11/19 22:50 93 H 15 94 10/11/19 22:40 93 H 14 94 10/11/19 22:30 93 H 16 95 10/11/19 22:20 93 H 21 91 10/11/19 22:10 94 H 18 91 10/11/19 22:00 93 H 91 H 15 100/66 100/66 91 10/11/19 21:50 92 H 16 92 0220 21:40 91 H 14 93 10/11/19 21:30 91 H 16 93 02 21:20 92 H 16 94 02 21:10 92 H 17 94 02 21:00 92 H 94 H 16 114/65 114/65 93 0220 20:50 92 H 16 95 10/11/19 20:40 92 H 16 95 20 20:30 92 H 17 97 Pulse Ox 10/12/19 04:50 02/02/20 04:40 10/12/19 04:30 10/12/19 04:20 10/12/19 04:10 10/12/19 04:00 10/12/19 03:50 10/12/19 03:40 10/12/19 03:30 10/12/19 03:20 10/12/19 03:10 10/12/19 03:00 10/12/19 02:50 10/12/19 02:40 10/12/19 02:30 10/12/19 02:20 10/12/19 02:10 10/12/19 02:01 10/12/19 02:00 10/12/19 01:50 10/12/19 01:40 10/12/19 01:30 10/12/19 01:20 10/12/19 01:10 10/12/19 01:00 10/12/19 00:50 10/12/19 00:40 10/12/19 00:30 10/12/19 00:20 10/12/19 00:10 10/12/19 00:06 10/12/19 00:03 10/11/19 23:50 10/11/19 23:40 10/11/19 23:30 10/11/19 23:24 10/11/19 23:20 10/11/19 23:16 99 10/11/19 23:10 10/11/19 23:00 10/11/19 22:50 10/11/19 22:40 10/11/19 22:30 10/11/19 22:20 10/11/19 22:10 10/11/19 22:00 10/11/19 21:50 10/11/19 21:40 10/11/19 21:30 10/11/19 21:20 10/11/19 21:10 10/11/19 21:00 10/11/19 20:50 10/11/19 20:40 10/11/19 20:30 10/12/19 04:47 10/12/19 04:47 Coding Level of Care Code Critical Care 1st 30-74 mins Diagnoses Hypotension I95.9 Colitis K52.9 Coronary artery disease I25.10 Obesity E66.9 COPD, moderate J44.9 SSS (sick sinus syndrome) I49.5 S/P cardiac pacemaker procedure Z95.0 Time Spent (min) 30
[2019-10-12] MEDS ORDERED: cefTRIAXone SODIUM 2,000 MG in DEXTROSE 5% 50 ML IV SCH (09:00)
[2019-10-12] MEDS ORDERED: PHARMACY GLYCEMIC MGMT CONSULT SCH (09:19)
--- NOTE | 2019-10-12 09:37 | Pharmacy Report ---
Glycemic Control Consultation - Date of Service October 12, 2019 - Scope Scope: Glycemic Pharmacist consulted by Dr Schultz on 10/12/19 for glycemic control and to write orders per [facility] inpatient glycemic control protocol - Objective Weight: 113.7 kg Accuchecks BSG (last 24hrs): 10/11/19 10/11/19 10/11/19 10:08 11:35 16:17 Glucose POC Glucose 250 H 222 H 218 H 10/11/19 10/12/19 10/12/19 20:10 04:47 07:35 Glucose 172 H POC Glucose 178 H 185 H Laboratory Data (last 24hrs): 10/12/19 04:47 Potassium 4.0 Carbon Dioxide 29 Anion Gap 5.0 Creatinine 1.49 H Est Cr Clr Drug Dosing 47.1 - Recent Pertinent Medications Outpatient Anti-diabetic Regimen: * Glimepiride 1mg PO daily * Metformin 1000mg PO BID * Januvia 100mg daily * A1c = 7.1 % 05/10/19, updated A1c pending The patient is currently receiving: * Basal insulin: None * Correctional Insulin: Novolog Correction per scale ACHS Goal Range: Low 110 mg/dL - High 160 mg/dL Correction Factor: 25 mg/dL/unit * Prandial insulin: Per carb ratio of 1 unit per 10 grams CHO consumed * Oral Agents: on hold Risk Factors for Insulin Resistance: * Infection: UTI - IV Zosyn * Diet: Type 2 DM - Assessment & Plan Assessment & Plan: ASSESSMENT: * 63 year old admitted to ICU yesterday for acute colitis, UTI, improving and moving to medical floor today. Type 2 DM. * Pt is maintained on oral antidiabetic agents as an outpatient * Oral agents are not recommended for inpatient use d/t drug interactions, changing PO intake, and difficulty titrating for acute hyper/hypoglycemia. ADA recommends re-initiating outpatient oral agents 1-2 days prior to discharge if/when appropriate if they were held on admission. * Will hold oral agents for admission and utilize SQ basal bolus insulin regimen which is the recommended regimen for inpatient glycemic control. * Will continue insulin dosing titrate based on BSG trends. * Blood sugars above goal since admission, will add basal insulin at this time, tighten CF and CR and goal range. * ADA & AACE recommend a goal blood sugar range 140-180 mg/dl for the majority of critically ill & non-critically ill patients. However, more st ringent targets may be selected in individual cases. Will utilize more stringent goal of 110-140mg/dl based on patient age & comorbidities. Additionally, tighter glycemic control is warranted to facilitate wound/infection healing. PLAN FOR INPATIENT GLYCEMIC CONTROL: * Holding outpatient oral diabetes medications * Basal insulin * Lantus 10 units SQ daily * Bolus insulin * NovoLog per scale ACHS or Q6hrs while NPO * tighten: Goal Range: Low 110 mg/dL - High 140 mg/dL * tighten: Correction Factor: 20 mg/dL/unit * tighten: Nutritional / Prandial insulin per carb ratio of 1 unit per 7 grams CHO consumed * Please note that the plan above was derived based on current level of insulin resistance and hospital stress. These recommendations are appropriate for inpatient admission only. Plan of care upon discharge will need to be reassessed to avoid potential outpatient hypo/hyperglycemia. Thank you.
[2019-10-12] MEDS: INSULIN GLARGINE SOLOSTAR 100 UNITS/ML 3 ML PEN SC SCH (10:16)
[2019-10-12] MEDS: SENNA 8.6 MG TAB PO SCH (10:28)
[2019-10-12] MEDS ORDERED: SOD PHOSPHATE/SOD BIPHOSPHATE ENEMA 132 ML BTL PR STA (14:40)
[2019-10-12] MEDS ORDERED: LACTULOSE SYRUP 20 GM/30 ML UDC PO ONE (14:45)
[2019-10-12] MEDS ORDERED: SODIUM CHLORIDE 0.9% 1000ML 1,000 ML IV SCH (15:30)
[2019-10-12 15:55] LABS: Hematocrit (blood only) 33.7 % (37-47); Hemoglobin 10.7 g/dL (12.0-16.0); Mean Corpuscular Hemoglobin 27.9 pg (25-34); Mean Corpuscular Hgb Conc 31.8 g/dL (32-36); Mean Corpuscular Volume 87.8 fL (80-100); Mean Platelet Volume 12.3 fL (7.4-10.4); Platelet Count 126 K/uL (130-400); RDW Standard Deviation 54.7 fL (36.4-46.3); Red Blood Count 3.84 M/uL (4.2-5.4)
[2019-10-12 16:10] LABS: Albumin Level 2.2 gm/dl (3.4-5.0); BUN Creatinine Ratio 11.9 (10-20); Creatinine Clr Calc Pharmacy 47.1 ml/min; Est GFR (African American) 42.6; Est GFR (Non-African American) 36.7
[2019-10-12 16:13] LABS: Albumin Globulin Ratio 0.6 (0.9-2); Bilirubin,Total 0.6 mg/dl (0.2-1); Globulin 3.9 gm/dl (2.5-4.0); Total Protein 6.1 gm/dl (6.4-8.2)
[2019-10-12 16:37] LABS: Eosinophils % (auto) 0.8 %; Giant Platelets 1+; Immature Granulocytes # (auto) 0.06 K/uL (0.00-0.02); Immature Granulocytes % (auto) 0.5 %; Lymphocytes # (auto) 1.05 K/uL (1.2-3.4); Lymphocytes % (auto) 8.1 %; Monocytes % (auto) 7.8 %; Neutrophils # (auto) 10.69 K/uL (1.4-6.5); Neutrophils % (auto) 82.8 %
--- NOTE | 2019-10-12 17:59 | XRay Report ---
KUB HISTORY: Generalized abdominal pain COMPARISON: Abdomen and pelvis CT 10/11/2019. FINDINGS: The bowel gas pattern is unremarkable. There are no dilated loops of small bowel to suggest an obstruction. No renal calculi. No ureteral calculi. No pneumoperitoneum or pneumatosis. Bilatera l common iliac artery stents are again noted. There are surgical clips within the abdomen. Residual c ontrast within the bladder from the recent CT examination. Moderate stool within the colon. Left late ral abdominal wall hernia, unchanged. IMPRESSION: 1. No evidence for bowel obstruction. 2. Moderate well-formed stool within the colon. 3. Left lateral abdominal wall hernia, unchanged. ACT 112: Negative or not required by law. Electronically signed by: Dash Nolasco M.D. 10/12/2019 5:57 PM
[2019-10-12] MEDS: PRAMIPEXOLE DIHYDROCHLO 0.25 MG TAB PO SCH (20:25)
--- NOTE | 2019-10-12 23:54 | Hospitalist Progress Note ---
Date of Service October 12, 2019 Assessment & Plan (1) Abdominal pain: -Colitis, cecum is inflamed on imaging. Was transferred to ICU on 10/11 almost immediately after admission due to hypotension. Kam was dded for anaerobic coverage as well a ceftriaxone that was initiated in the ED. This was switched to zosyn by the tin dipper. BP has improved. will try to limit pain medication as to not mask worseneing of her abdominal pain. will transfer the patient out ot the ICU on 10/12 -CTA of the abdomen completed to rule out ischemia, negative for such, however does show focal moderate thickening and pericolonic fat stranding surrounding the cecum favoring a nonspecific colitis., Bilateral common iliac artery stents are patent, common origin of the celiac and superior mesenteric arteries with focal moderate narrowing of approximately 50% at the takeoff of the SMA -Continue supportive care with analgesics, antiemetics as needed -WBC = IMPROVED to 12 from 16, afebrile -Lactic acid initially was 2.4, now down to 1.2 -HR has aso improved. Concern is that patient has severe vascular compromise, will need to make sure her pressures are stable. Update: Patient reports no signifcant improvement in pain in the aFternoon, will obtain KUB and procal. Ordered laxatives, to help with constipation if no SBO (2) UTI (urinary tract infection): -History of UTI growing out pansensitive Klebsiella At this point, do not believe UTI is main cultprit (3) SSS (sick sinus syndrome): (4) S/P cardiac pacemaker procedure: (5) Hx of non-ST elevation myocardial infarction (NSTEMI): -Patient follows with Dr. Mojica for pacemaker and CAD, pacemaker placed in 2016, several [place] over past few years. -Patient previously hospitalized in February 2019 for A. fib with RVR then determined to be focal atrial tachycardia. -holding diltiazem 240 mg ER daily due to soft BP. -Holding torsemide (6) Systolic and diastolic CHF, chronic: - Appears euvolemic on admission. - Last echo on 05/10/2019 with EF of 55=60% - Holding torsemide secondary to a slight creatinine bump, monitor since was given IV fluids in ER for volume overload (7) CAD (coronary artery disease): (8) PAD (peripheral artery disease): -Previously followed by Dr. Sheffield in [place], s/p left carotid endarterectomy and restented, multiple stents in both legs. Follows with [facility] once yearly, -Continue Plavix -Continue rosuvastatin (9) HLD (hyperlipidemia): -Continue statin therapy as above (10) HTN (hypertension): -holding diltiazem, Imdur, holding torsemide (11) COPD (chronic obstructive pulmonary disease): -Follows with pulmonology as an outpatient, PFT revealed moderate obstruction without significant improvement after bronchodilator -Continue Spiriva, DuoNebs prn -Continue 2 L O2 HS (12) DM II (diabetes mellitus, type II), controlled: -ISS with Accu-Cheks ACHS, recheck A1c -Continue Januvia -Holding metformin, glimepiride (13) Obesity: -BMI 43.1, diet and exercise to be encouraged -Heart healthy/diabetic diet once more awake (14) Nicotine dependence: -History of such, no longer smokes, no need for nicotine patch (15) Depression with anxiety: -Continue Cymbalta 60 mg daily, Ativan 0.5 mg twice daily prn (16) Diabetic toe ulcer: -Following with [place] [facility] (17) DVT prophylaxis: -Teds, continue Plavix Subjective Patient reports feeling about the same as yesterday. She continues to have right sided abdominal pain. However she reports that the pain has not worsened. She states she has not had any bowel movements during hospital stay either. She reports no nausea vomiting either. D/W tin dipper and nursing staff, Blood pressure has been stable, no neeed for pressors, will downgrade patient back to [facility]. Review of Systems Review of Systems: Constitutional: No fever, sweats or chills Eyes: No diplopia, no worsening or blurred vision ENT: normal hearing, no trouble swallowing Respiratory: No cough, sputum, dyspnea at rest or on exertion Cardiovascular: No chest pain, tightness or palpitations Abdomen: + Generalized pain, no nausea, vomiting, diarrhea, last BM 2 days ago Musculoskeletal: No joint pain, calf pain, swelling Neurologic: No weakness, numbness/tingling, or balance problems Psychiatric: No anxiety or depression Skin: No rash or itch Physical Exam Physical Exam: General: Sitting in chair, awake, alert, no apparent distress, + obese Head: Normocephalic, atraumatic ENT: PERRL, EOMI, no pharyngeal exudate, mucous membranes moist Chest: Clear to auscultation, on room air, no adventitious breath sounds Cardiac: Regular rate and rhythm, no murmur, no JVD, normal peripheral pulses, good capillary refill Abdominal: NABS x 4 quadrants, soft, + mildly distended, + tender to palpation in the RUQ and RLQ suprapubic region specifically, otherwise tender in general, no rebound or guarding Extremities: Normal inspection, no peripheral edema or erythema, calfs nontender to palpation Psych: Normal mood and affect Neuro: AAO x 3, strength intact bilaterally and related 5/5, no motor deficits, speech is clear, no peripheral sensory deficits Skin: no rash or erythema Results & Data ([facility]) Vital Signs (Past 12 Hours) Vital Signs Temp Pulse Pulse Pulse Resp BP BP 10/12/19 20:14 10/12/19 19:49 37.1 C 118 H 20 145/82 H 10/12/19 16:30 93 H 10/12/19 15:13 36.9 C 106 H 16 108/67 10/12/19 12:40 36.7 C 99 H 20 108/71 Pulse Ox 10/12/19 20:14 93 10/12/19 19:49 87 L 10/12/19 16:30 10/12/19 15:13 94 10/12/19 12:40 89 L PG Care Time/CCT Total # of Minutes Spent Total Time Spent with Patient: Total time spent is greater than 50% in coordination of care (as documented) at patient's floor/unit and/or counseling patient: Coding Level of Care Code 26082 Subseq Hosp Care Lvl 3 Diagnoses Abdominal pain R10.9 UTI (urinary tract infection) N39.0 Hematuria presence: without hematuria Urinary tract infection type: site unspecified SSS (sick sinus syndrome) I49.5 S/P cardiac pacemaker procedure Z95.0 Hx of non-ST elevation myocardial infarction (NSTEMI) I25.2 Systolic and diastolic CHF, chronic I50.42 CAD (coronary artery disease) I25.10 Associated angina: without angina Coronary Disease-Associated Artery/Lesion type: [place] artery [place] vs. transplanted heart: [place] heart PAD (peripheral artery disease) I73.9 HLD (hyperlipidemia) E78.2 Hyperlipidemia type: mixed hyperlipidemia HTN (hypertension) I10 Hypertension type: essential hypertension COPD (chronic obstructive pulmonary disease) J44.9 COPD type: unspecified COPD DM II (diabetes mellitus, type II), controlled E11.9 Obesity E66.9 Nicotine dependence F17.200 Depression with anxiety F41.8 Diabetic toe ulcer E11.621; L97.509 DVT prophylaxis Z29.9 Time Spent (min) 45 (1) UTI (urinary tract infection) Hematuria presence: without hematuria Urinary tract infection type: site unspecified Qualified Code(s): N39.0 - Urinary tract infection, site not specified (2) CAD (coronary artery disease) Associated angina: without angina Coronary Disease-Associated Artery/Lesion type: [place] artery [place] vs. transplanted heart: [place] heart Qualified Code(s): I25.10 - Atherosclerotic heart disease of [place] coronary artery without angina pectoris (3) HLD (hyperlipidemia) Hyperlipidemia type: mixed hyperlipidemia Qualified Code(s): E78.2 - Mixed hyperlipidemia (4) COPD (chronic obstructive pulmonary disease) COPD type: unspecified COPD Qualified Code(s): J44.9 - Chronic obstructive pulmonary disease, unspecified (5) HTN (hypertension) Hypertension type: essential hypertension Qualified Code(s): I10 - Essential (primary) hypertension
[2019-10-13] MEDS: PIPERACILLIN/TAZOBACTAM 4.5 GM in DEXTROSE 5% 100 ML IV SCH ×3 (03:31→19:59)
[2019-10-13 06:29] LABS: Estimated Average Glucose 226 mg/dl; Hemoglobin A1C 9.5 % (4.5-5.6)
[2019-10-13 07:38] LABS: Mean Corpuscular Hgb Conc 31.2 g/dL (32-36); Nucleated RBC # (auto) 0.02 K/uL (0-0); Nucleated RBC % (auto) 0.2 %
[2019-10-13] MEDS: MoRPHine SULFATE 4 MG/ML 1 ML CARP\\VIAL IV PRN ×2 (07:39→19:57)
[2019-10-13 07:50] LABS: Hematocrit (blood only) 35.3 % (37-47); Mean Corpuscular Hemoglobin 27.2 pg (25-34); Mean Corpuscular Volume 87.2 fL (80-100); RDW Coefficient of Variation 16.9 % (11.5-14.5); RDW Standard Deviation 53.8 fL (36.4-46.3); Red Blood Count 4.05 M/uL (4.2-5.4); White Blood Count 10.88 K/uL (4.8-10.8)
[2019-10-13 08:01] LABS: Mean Platelet Volume 12.7 fL (7.4-10.4); Platelet Count 135 K/uL (130-400); Platelet Estimate Decreased (Normal)
[2019-10-13 08:21] LABS: Albumin Level 2.2 gm/dl (3.4-5.0); BUN Creatinine Ratio 10.1 (10-20); Calcium 8.7 mg/dl (8.5-10.1); Creatinine Clr Calc Pharmacy 49.5 ml/min; Est GFR (African American) 45.1; Est GFR (Non-African American) 38.9; Potassium 3.8 mmol/L (3.5-5.1)
[2019-10-13 08:24] LABS: Albumin Globulin Ratio 0.5 (0.9-2); Bilirubin,Total 0.6 mg/dl (0.2-1); Globulin 4.1 gm/dl (2.5-4.0); Total Protein 6.3 gm/dl (6.4-8.2)
[2019-10-13] MEDS: RANOLAZINE 500 MG ER TAB PO SCH ×2 (08:40→20:53)
[2019-10-13] MEDS: POTASSIUM CHLORIDE 10 MEQ TABCR PO SCH ×2 (08:40→20:02)
[2019-10-13] MEDS: UMECLIDINIUM BROMIDE 62.5MCG/BLISTER 7 PUFFS/INHALER INH SCH (08:41)
[2019-10-13] MEDS: CLOPIDOGREL BISULFATE 75 MG TAB PO SCH (08:41)
[2019-10-13] MEDS: HEPARIN SOD 5,000 UNIT/0.5 ML VIAL SQ SCH ×2 (08:41→20:54)
[2019-10-13] MEDS: SENNA 8.6 MG TAB PO SCH (08:41)
[2019-10-13] MEDS: DULOXETINE HCL 60 MG CAP PO SCH (08:41)
[2019-10-13] MEDS: ROSUVASTATIN CALCIUM 20 MG TAB PO SCH (08:41)
[2019-10-13] MEDS: INSULIN GLARGINE SOLOSTAR 100 UNITS/ML 3 ML PEN SC SCH (08:42)
[2019-10-13] MEDS: INSULIN ASPART 100 UNITS/ML 3 ML PEN SC SCH ×4 (08:48→20:53)
[2019-10-13] MEDS: PREGABALIN 75 MG CAP PO SCH ×3 (08:53→20:52)
[2019-10-13] MEDS: MAGNESIUM OXIDE 400 MG TAB PO SCH (10:58)
--- NOTE | 2019-10-13 12:10 | Hospitalist Progress Note ---
Date of Service October 13, 2019 Assessment & Plan (1) Abdominal pain: CTA a/p on 10/11 showed "focal moderate thickening and pericolonic fat stranding surrounding the cecum favoring a nonspecific colitis" & "focal moderate narrowing of approximately 50% at the takeoff of the SMA." Lactic acid initially was 2.4, now down to 1.2. - Started on abx on admission -> Now on Zosyn - Unclear cause as pain has not improved in the 48 hours on abx. - Surgery consulted on 10/13 - Concern for appendicitis. Considering repeat CT a/p. (2) Sepsis: Sepsis POA treated and resolved with IVF bolus and IV antibiotics. - As above (3) Hx of non-ST elevation myocardial infarction (NSTEMI): Patient follows with Dr. Mojica for pacemaker and CAD, pacemaker placed in 2015, several [place] over past few years. Patient previously hospitalized in February 2019 for afib with RVR then determined to be focal atrial tachycardia. - Holding diltiazem 240 mg ER daily due to soft BP; holding torsemide - Restart as able - Continue Ranexa (4) CKD (chronic kidney disease) stage 3, GFR 30-59 ml/min: Baseline Cr ~1.3 to 1.5, eGFR ~45. - At baseline - Monitor (5) SSS (sick sinus syndrome): With pacemaker implantation. - No inpatient needs (6) Systolic and diastolic CHF, chronic: Last echo on 05/10/2019 with EF of 55=60%. - Appeared euvolemic on admission. - Holding torsemide secondary to a slight creatinine bump, monitor since was given IV fluids in ER for volume overload (7) PAD (peripheral artery disease): Previously followed by Dr. Sheffield in [place], s/p left carotid endarterectomy and restented, multiple stents in both legs. Follows with [place] [facility] once yearly. - Continue Plavix - Continue rosuvastatin (8) HTN (hypertension): Presently BP is 120/75. - Holding diltiazem, Imdur, & torsemide (9) COPD (chronic obstructive pulmonary disease): Follows with pulmonology as an outpatient, PFT revealed moderate obstruction without significant improvement after bronchodilator. - Continue Spiriva, DuoNebs prn - Continue 2 L O2 HS (10) DM II (diabetes mellitus, type II), controlled: A1c was 9.5% this admission. - Sliding scale insulin - Hold Januvia, metformin, glimepiride - Glycemic pharmacist managing (11) Obesity: BMI 43.1. - Diet and exercise to be encouraged - Heart healthy/diabetic diet (12) Nicotine dependence: History of such, no longer smokes, no need for nicotine patch (13) Depression with anxiety: No present symptoms. - Continue Cymbalta 60 mg daily, Ativan 0.5 mg twice daily prn (14) Diabetic toe ulcer: Following with [place] wound [facility] - No inpatient needs (15) DVT prophylaxis: - Teds, continue Plavix Results & Data ([facility]) Vital Signs (Past 12 Hours) Vital Signs Temp Pulse Pulse Resp BP BP Pulse Ox 10/13/19 11:00 36.8 C 102 H 16 123/74 92 10/13/19 08:00 112 H 10/13/19 07:00 36.8 C 116 H 16 153/77 H 90 10/13/19 04:03 37.5 C 112 H 20 127/74 92 10/13/19 01:08 113 H 10/13/19 00:26 37.2 C 69 20 146/74 H 91 PG Care Time/CCT Total # of Minutes Spent Total Time Spent with Patient: Total time spent is greater than 50% in coordination of care (as documented) at patient's floor/unit and/or counseling patient: Coding Level of Care Code 13969 Subseq Hosp Care Lvl 3 Diagnoses Abdominal pain R10.9 Sepsis A41.9 Hx of non-ST elevation myocardial infarction (NSTEMI) I25.2 CKD (chronic kidney disease) stage 3, GFR 30-59 ml/min N18.3 SSS (sick sinus syndrome) I49.5 Systolic and diastolic CHF, chronic I50.42 PAD (peripheral artery disease) I73.9 HTN (hypertension) I10 Hypertension type: essential hypertension COPD (chronic obstructive pulmonary disease) J44.9 COPD type: unspecified COPD DM II (diabetes mellitus, type II), controlled E11.9 Obesity E66.9 Nicotine dependence F17.200 Depression with anxiety F41.8 Diabetic toe ulcer E11.621; L97.509 DVT prophylaxis Z29.9 (1) HTN (hypertension) Hypertension type: essential hypertension Qualified Code(s): I10 - Essential (primary) hypertension (2) COPD (chronic obstructive pulmonary disease) COPD type: unspecified COPD Qualified Code(s): J44.9 - Chronic obstructive pulmonary disease, unspecified
--- NOTE | 2019-10-13 14:11 | Surgery Consultation ---
Date of Consultation October 13, 2019 Assessment & Plan (1) Right sided abdominal pain: 63 year-old obese female with multiple comorbidities including extensive vasculopathy who presented to ED on 10/10/2019 with right lower quadrant abdominal pain. CTA showing focal moderate thickening and pericolonic fat stranding surrounding colon consistent with nonspecific colitis. Leukocytosis 16K on presentation. Has been afebrile. WBC now down to 10k. RLQ pain has improved not as consistent as on presentation. Abdomen is obese, tender in RLQ, no distention, no rigidity, rebound, or peritonitis. Plan: uncertain of etiology of RLQ abdominal pain. Likely nonspecific colitis. She had colonoscopy in 07/2019 which showed two hyperplastic polyps at sigmoid colon otherwise unremarkable. No history of diarrhea or blood in stools. Her pain has improved since admission and her white count is down. She has no acute abdominal signs. Discussed repeating CT scan of abdomen and pelvis with IV and oral contrast to further evaluate the bowel however have to consider there may not be any significant changes on CT scan and the increased radiation exposure with repeat CT scan Will review with attending Dr. Cosby Continue clear liquids for now Advised patient to avoid IV Narcotics if her pain is not severe. (she last had IV Morphine at 7:30 am, yesterday she had 3 doses of Morphine 2 mg IV every 2 hours) Saw patient with Dr. Cosby. 3:[address] Cosby recommends GI consultation for further evaluation. Do not feel repeating CT scan is indicated as her pain is improving, afebrile, and leukocytosis improved. May need good bowel regimen given fecal load throughout colon continue medical management (2) Colitis: History of Present Illness Reason for Consultation: RLQ abdominal pain Requesting Physician: Deep Dick MD Attending Physician: Deep Dick MD History of Present Illness Kortney is a 63 year-old female with multiple comorbidities including obesity, CAD, CKD, Diabetes mellitus type 2, NSTEMI, COPD CHF, PAD with extensive history of vasculopathy, hyperlipidemia, hypertension who presented to emergency department early Sunday morning with complaint of constant sharp right lower abdominal pain. Kortney states she was traveling to [place] with a friend and had [place] food. Afterwards she developed sharp right lower abdominal pain that was constant and would not decrease in severity. Pain was 10/10 on presentation. She denies of any recent fever, chills, nausea, vomiting, diarrhea, constipation, blood in stools, or black/tarry stools. Has bowel movement every 2-3 days. Last bowel movement maybe or Sunday. Had a colonoscopy in July [address] Monson. Said 5 polyps were removed and she is to go back in 1 year. Per report she had 2 polyps removed which were hyperplastic polyps at sigmoid colon. Cecum, terminal ileum, and appendiceal orifice were visualized during colonoscopy and were unremarkable. Er work-up included labs which showed leukocytosis of 16K and CTA showed focal moderate thickening and pericolonic fat stranding surrounding the cecum. These findings favor a nonspecific colitis and could be due to infectious, inflammatory, or ischemic process. She was admitted to hospital and started on IV fluids, IV antibiotics, and bowel rest. Our services consulted for further evaluation of RLQ abdominal pain as patient's pain has not improved in last 48 hours with IV abx and IV pain medic ation. Kortney states the pain is not as constant or severe today. States the abdominal pain is okay unless when pressed on. Had liquids today which did not cause increase of abdominal pain but did cause nausea and small emesis only one time. Not passing much flatus. Small bowel movement after enema yesterday but not much. Denies fever, chills, increasing abdominal pain. Allergies Allergy/AdvReac Type Severity Reaction Status Date / Time No Known Allergies Allergy Unverified 10/11/19 05:35 Home Medications Home Medications Medication Instructions Recorded Confirmed Type metformin 1,000 mg PO BID 05/13/18 10/11/19 History metoprolol tartrate 100 mg PO BID 05/13/18 10/11/19 History ipratropium 0.5 mg-albuterol 3 mg 3 ml INH Q4H PRN #90 ml 02/24/19 10/11/19 Rx (2.5 mg base)/3 mL nebulization soln lorazepam 0.5 mg tablet 0.5 mg PO BID PRN tab 02/24/19 10/11/19 History glimepiride 1 mg tablet 1 mg PO QAM #90 tab 02/27/19 10/11/19 Rx potassium chloride 10 mEq 10 meq PO BID #180 tab 03/10/19 10/11/19 Rx tablet,extended release ranolazine 500 mg tablet,extended 500 mg PO BID #180 tab 03/27/19 10/11/19 Rx release,12 hr rosuvastatin 40 mg tablet 40 mg PO QAM #90 tab 06/04/19 10/11/19 Rx nitroglycerin 0.4 mg sublingual 0.4 mg SL Q5M PRN #1 tab 06/08/19 10/11/19 History tablet Over Night Pulse OX #1 ea 06/13/19 08/25/19 Rx diltiazem HCl 240 mg 240 mg PO QAM #90 cap 06/16/19 10/11/19 Rx capsule,extended release 24 hr pregabalin 75 mg capsule 75 mg PO TID #90 cap 06/19/19 10/11/19 Rx Januvia 100 mg PO QAM 07/18/19 10/11/19 History Spiriva Respimat 2 puffs INH QAM 07/18/19 10/11/19 History clopidogrel [Plavix] 75 mg PO QAM 07/18/19 10/11/19 History duloxetine 60 mg PO QAM 07/18/19 10/11/19 History isosorbide mononitrate 30 mg PO QAM 07/18/19 10/11/19 History magnesium oxide 400 mg PO QAM 07/18/19 10/11/19 History torsemide 20 mg tablet 30 mg PO DAILY #135 tab 08/14/19 10/11/19 Rx pramipexole 0.75 mg tablet 0.75 mg PO HS #90 tab 08/25/19 10/11/19 Rx albuterol sulfate 90 mcg/actuation 2 puffs INH Q6H PRN #8 gm 10/08/19 10/11/19 Rx aerosol inhaler Patient History Medical History ANNETTE (acute kidney injury) Altered mental status Anxiety Bulging discs CAD (coronary artery disease) Chronic back pain Combined systolic and diastolic heart failure COPD (chronic obstructive pulmonary disease) Degenerative disc disease Depression with anxiety Diabetic nephropathy DM II (diabetes mellitus, type II), controlled Dyspnea HLD (hyperlipidemia) HTN (hypertension) Hx of non-ST elevation myocardial infarction (NSTEMI) 05/2018 Hyperlipidemia Hypertension (Acute) Hypokalemia Hyponatremia Hypoxia Left ventricular diastolic dysfunction Medical marijuana use Metabolic encephalopathy Myocardial Infarction 05/2018 - [facility] Obesity Pacemaker 05/2015 - Sick sinus syndrome - Last checked 02/2019 ([facility]) - [employer] PAD (peripheral artery disease) Paroxysmal SVT (supraventricular tachycardia) Restless legs Rheumatoid arthritis Spinal stenosis Systolic and diastolic CHF, chronic Tachycardia UTI (urinary tract infection) Weakness Surgical History History of cardiac cath 05/2018 - [place] - NO STENTS/ANGIOPLASTY - COLLATERAL CIRCULATION - FOLLOWS W/ DR. ERWIN History of cataract surgery BILATERAL History of cholecystectomy History of intravascular stent placement Multiple stents in bilateral legs, left subclavian, left aortic mesenteric bypass, left carotid endarterectomy History of oral surgery History of tonsillectomy History of tooth extraction S/P cardiac pacemaker procedure Social History Preferred Language: Czech Communication Ability: Effective Visual Impairment: No Limitations Embroidery Designer Required: No Beliefs That Will Affect Care: None marital status: Current Living Situation: Family Current Living Situation Comment: Lives with sister Other Information That Helps Us Care for You: No Feels Safe at Home: Yes Safety Concerns: Feels Safe At This Time Smoking Status: Former smoker Tobacco Type: cigarettes ; Cigarettes Per Day: VAPES + 2 CIGS PER DAY ; Do You Dip or Chew Tobacco: No ; Second Hand Exposure: No ; Tobacco Cessation Education Requested by Patient: No Hx Alcohol Use: Yes Alcohol type: hard liquor Hx Substance Use: No Review of Systems Review of Systems: All systems reviewed & are unremarkable except as noted in HPI & below Physical Exam Constitutional: WD/WN, vitals as above + morbidly obese; no acute distress Respiratory: normal respiratory effort, lungs clear to auscultation Cardiovascular: RRR, no murmur, no edema Gastrointestinal (Abdomen): Inspection/Auscultation: abdomen normal to inspection; abdomen not distended and + abnormal bowel sounds Percussion/Pa lpation: + abdomen tender (RLQ), abdomen soft and + hernia (large left sided abdominal hernia); no guarding and abdomen not rigid Skin: no rashes, warm and dry Psychiatric: A+Ox3, euthymic affect Results & Data Vital Signs (Past 12 Hours) Vital Signs Temp Pulse Pulse Resp BP Pulse Ox 10/13/19 11:00 36.8 C 102 H 16 123/74 92 10/13/19 08:00 112 H 10/13/19 07:00 36.8 C 116 H 16 153/77 H 90 10/13/19 04:03 37.5 C 112 H 20 127/74 92 Laboratory Results 10/13/19 10/13/19 10/13/19 Range/Units 11:50 07:35 07:03 WBC (4.8-10.8) K/uL RBC (4.2-5.4) M/uL Hgb (12.0-16.0) g/dL Hct (37-47) % MCV (80-100) fL MCH (25-34) pg MCHC (32-36) g/dL RDW Std Deviation (36.4-46.3) fL RDW Coeff of Tosin (11.5-14.5) % Plt Count (130-400) K/uL MPV (7.4-10.4) fL Immature Gran % (Auto) % Neut % (Auto) % Lymph % (Auto) % [place] % (Auto) % Eos % (Auto) % Baso % (Auto) % Immature Gran # (Auto) (0.00-0.02) K/uL Neut # (Auto) (1.4-6.5) K/uL Lymph # (Auto) (1.2-3.4) K/uL [place] # (Auto) (0.11-0.59) K/uL Eos # (Auto) (0-0.5) K/uL Baso # (Auto) (0-0.2) K/uL Absolute Nucleated RBC (0-0) K/uL Nucleated RBC % (auto) % Platelet Estimate (Normal) Giant Platelets Sodium 135 L (136-145) mmol/L Potassium 3.8 (3.5-5.1) mmol/L Chloride 101 (98-107) mmol/L Carbon Dioxide 27 (21-32) mmol/L Anion Gap 6.0 (3-11) BUN 14 (7-18) mg/dl Creatinine 1.42 H (0.6-1.2) mg/dl Est Cr Clr Drug Dosing 49.5 ml/min Est GFR ( Amer) 45.1 Est GFR (Non-Af Amer) 38.9 BUN/Creatinine Ratio 10.1 (10-20) Glucose 165 H (70-99) mg/dl POC Glucose 143 H 165 H (70-99) mg/dl Estimat Average Glucose mg/dl Hemoglobin A1c (4.5-5.6) % Lactate (0.4-2.0) mmol/L Calcium 8.7 (8.5-10.1) mg/dl Total Bilirubin 0.6 (0.2-1) mg/dl AST 29 (15-37) U/L ALT 18 (12-78) U/L Alkaline Phosphatase 144 H (45-117) U/L Total Protein 6.3 L (6.4-8.2) gm/dl Albumin 2.2 L (3.4-5.0) gm/dl Globulin 4.1 H (2.5-4.0) gm/dl Albumin/Globulin Ratio 0.5 L (0.9-2) Procalcitonin (0-0.5) ng/ml 10/13/19 10/12/19 10/12/19 Range/Units 07:03 20:21 16:36 WBC 10.88 H (4.8-10.8) K/uL RBC 4.05 L (4.2-5.4) M/uL Hgb 11.0 L (12.0-16.0) g/dL Hct 35.3 L (37-47) % MCV 87.2 (80-100) fL MCH 27.2 (25-34) pg MCHC 31.2 L (32-36) g/dL RDW Std Deviation 53.8 H (36.4-46.3) fL RDW Coeff of Tosin 16.9 H (11.5-14.5) % Plt Count 135 (130-400) K/uL MPV 12.7 H (7.4-10.4) fL Immature Gran % (Auto) % Neut % (Auto) % Lymph % (Auto) % [place] % (Auto) % Eos % (Auto) % Baso % (Auto) % Immature Gran # (Auto) (0.00-0.02) K/uL Neut # (Auto) (1.4-6.5) K/uL Lymph # (Auto) (1.2-3.4) K/uL [place] # (Auto) (0.11-0.59) K/uL Eos # (Auto) (0-0.5) K/uL Baso # (Auto) (0-0.2) K/uL Absolute Nucleated RBC 0.02 H (0-0) K/uL Nucleated RBC % (auto) 0.2 % Platelet Estimate Decreased L (Normal) Giant Platelets Sodium (136-145) mmol/L Potassium (3.5-5.1) mmol/L Chloride (98-107) mmol/L Carbon Dioxide (21-32) mmol/L Anion Gap (3-11) BUN (7-18) mg/dl Creatinine (0.6-1.2) mg/dl Est Cr Clr Drug Dosing ml/min Est GFR ( Amer) Est GFR (Non-Af Amer) BUN/Creatinine Ratio (10-20) Glucose (70-99) mg/dl POC Glucose 167 H 172 H (70-99) mg/dl Estimat Average Glucose mg/dl Hemoglobin A1c (4.5-5.6) % Lactate (0.4-2.0) mmol/L Calcium (8.5-10.1) mg/dl Total Bilirubin (0.2-1) mg/dl AST (15-37) U/L ALT (12-78) U/L Alkaline Phosphatase (45-117) U/L Total Protein (6.4-8.2) gm/dl Albumin (3.4-5.0) gm/dl Globulin (2.5-4.0) gm/dl Albumin/Globulin Ratio (0.9-2) Procalcitonin (0-0.5) ng/ml 10/12/19 10/12/19 10/12/19 Range/Units 15:42 15:42 15:42 WBC 12.90 H (4.8-10.8) K/uL RBC 3.84 L (4.2-5.4) M/uL Hgb 10.7 L (12.0-16.0) g/dL Hct 33.7 L (37-47) % MCV 87.8 (80-100) fL MCH 27.9 (25-34) pg MCHC 31.8 L (32-36) g/dL RDW Std Deviation 54.7 H (36.4-46.3) fL RDW Coeff of Tosin 17.0 H (11.5-14.5) % Plt Count 126 L (130-400) K/uL MPV 12.3 H (7.4-10.4) fL Immature Gran % (Auto) 0.5 % Neut % (Auto) 82.8 % Lymph % (Auto) 8.1 % [place] % (Auto) 7.8 % Eos % (Auto) 0.8 % Baso % (Auto) 0.0 % Immature Gran # (Auto) 0.06 H (0.00-0.02) K/uL Neut # (Auto) 10.69 H (1.4-6.5) K/uL Lymph # (Auto) 1.05 L (1.2-3.4) K/uL [place] # (Auto) 1.00 H (0.11-0.59) K/uL Eos # (Auto) 0.10 (0-0.5) K/uL Baso # (Auto) 0.00 (0-0.2) K/uL Absolute Nucleated RBC (0-0) K/uL Nucleated RBC % (auto) % Platelet Estimate (Normal) Giant Platelets 1+ Sodium 134 L (136-145) mmol/L Potassium 4.0 (3.5-5.1) mmol/L Chloride 100 (98-107) mmol/L Carbon Dioxide 28 (21-32) mmol/L Anion Gap 7.0 (3-11) BUN 18 (7-18) mg/dl Creatinine 1.49 H (0.6-1.2) mg/dl Est Cr Clr Drug Dosing 47.1 ml/min Est GFR ( Amer) 42.6 Est GFR (Non-Af Amer) 36.7 BUN/Creatinine Ratio 11.9 (10-20) Glucose 145 H (70-99) mg/dl POC Glucose (70-99) mg/dl Estimat Average Glucose mg/dl Hemoglobin A1c (4.5-5.6) % Lactate (0.4-2.0) mmol/L Calcium 9.0 (8.5-10.1) mg/dl Total Bilirubin 0.6 (0.2-1) mg/dl AST 22 (15-37) U/L ALT 14 (12-78) U/L Alkaline Phosphatase 113 (45-117) U/L Total Protein 6.1 L (6.4-8.2) gm/dl Albumin 2.2 L (3.4-5.0) gm/dl Globulin 3.9 (2.5-4.0) gm/dl Albumin/Globulin Ratio 0.6 L (0.9-2) Procalcitonin 2.41 H (0-0.5) ng/ml 10/12/19 10/12/19 Range/Units 15:42 04:47 WBC (4.8-10.8) K/uL RBC (4.2-5.4) M/uL Hgb (12.0-16.0) g/dL Hct (37-47) % MCV (80-100) fL MCH (25-34) pg MCHC (32-36) g/dL RDW Std Deviation (36.4-46.3) fL RDW Coeff of Tosin (11.5-14.5) % Plt Count (130-400) K/uL MPV (7.4-10.4) fL Immature Gran % (Auto) % Neut % (Auto) % Lymph % (Auto) % [place] % (Auto) % Eos % (Auto) % Baso % (Auto) % Immature Gran # (Auto) (0.00-0.02) K/uL Neut # (Auto) (1.4-6.5) K/uL Lymph # (Auto) (1.2-3.4) K/uL [place] # (Auto) (0.11-0.59) K/uL Eos # (Auto) (0-0.5) K/uL Baso # (Auto) (0-0.2) K/uL Absolute Nucleated RBC (0-0) K/uL Nucleated RBC % (auto) % Platelet Estimate (Normal) Giant Platelets Sodium (136-145) mmol/L Potassium (3.5-5.1) mmol/L Chloride (98-107) mmol/L Carbon Dioxide (21-32) mmol/L Anion Gap (3-11) BUN (7-18) mg/dl Creatinine (0.6-1.2) mg/dl Est Cr Clr Drug Dosing ml/min Est GFR ( Amer) Est GFR (Non-Af Amer) BUN/Creatinine Ratio (10-20) Glucose (70-99) mg/dl POC Glucose (70-99) mg/dl Estimat Average Glucose 226 mg/dl Hemoglobin A1c 9.5 H (4.5-5.6) % Lactate 1.2 (0.4-2.0) mmol/L Calcium (8.5-10.1) mg/dl Total Bilirubin (0.2-1) mg/dl AST (15-37) U/L ALT (12-78) U/L Alkaline Phosphatase (45-117) U/L Total Protein (6.4-8.2) gm/dl Albumin (3.4-5.0) gm/dl Globulin (2.5-4.0) gm/dl Albumin/Globulin Ratio (0.9-2) Procalcitonin (0-0.5) ng/ml Diagnostic Findings CT angio abdomen pelvis w con HISTORY: Right side abd pain. Hx vascular issues. TECHNIQUE: Multiaxial CT images of the abdomen and pelvis were performed following the use of intravenous contrast to evaluate the major arterial structures. Maximal intensity projection images were also obtained. COMPARISON STUDY: Abdomen and pelvis CT 8 08/20/2018. FINDINGS: The lung bases are clear. No pneumoperitoneum. No acute fractures within the visualized osseous structures. Pacemaker wires are noted. Prior cholecystectomy. The liver, spleen, adrenal glands, and pancreas are unremarkable. No retroperitoneal lymphadenopathy. There are surgical clips within the right groin. The bladder, uterus, bilateral adnexa are unremarkable. No hydronephrosis. Bilateral cortical renal thinning. Hypodensities within the anterior left kidney remain unchanged and likely represent old infarcts. No hydronephrosis. Left lateral abdominal wall hernia containing multiple loops of small bowel and the splenic flexure of the colon, unchanged. No evidence for bowel obstruction. Focal moderate thickening and pericolonic fat stranding surrounding the cecum. The appendix is not clearly identified. These findings favor a nonspecific colitis. Acute appendicitis cannot be excluded but is considered less likely given the pattern of inflammatory change. Abnormal appearance of the gas within the cecum. This is likely intraluminal. Pneumatosis could also have a similar appearance but is considered less likely. Extensive calcified plaque within the abdominal aorta. No aneurysm identified w ithin the aorta. Focal mild narrowing of the abdominal aorta at the level of the renal arteries. There is mild focal narrowing at the proximal right renal artery. The main left renal artery is patent. Bilateral common iliac artery stents are patent. No significant stenosis within the external iliac arteries. Multifocal narrowing within the bilateral internal there is again noted a common origin of the celiac and superior mesenteric arteries. There is focal moderate narrowing at the takeoff of the superior mesenteric artery due to the calcified plaque. This is best seen on image 113. Iliac arteries with probable occlusion of the proximal left internal iliac artery. IMPRESSION: 1. Focal moderate thickening and pericolonic fat stranding surrounding the cecum. These findings favor a nonspecific colitis and could be due to infectious, inflammatory, or ischemic process. Abnormal appearance of the gas within the cecum. This is likely intraluminal. Pneumatosis could also have a similar appearance but is considered less likely. 2. The appendix is not clearly identified. Acute appendicitis cannot be excluded but is also considered less likely given the pattern of inflammatory change. 3. Common origin of the celiac and superior mesenteric arteries with focal moderate narrowing of approximately 50% at the takeoff of the superior mesenteric artery. 4. Bilateral common iliac artery stents are patent. 5. Additional stable findings as described above.
[2019-10-13] MEDS: PRAMIPEXOLE DIHYDROCHLO 0.25 MG TAB PO SCH (20:52)
[2019-10-14] MEDS: MoRPHine SULFATE 4 MG/ML 1 ML CARP\\VIAL IV PRN (06:21)
[2019-10-14 07:46] LABS: Hematocrit (blood only) 33.3 % (37-47); Hemoglobin 10.6 g/dL (12.0-16.0); Mean Corpuscular Hemoglobin 27.5 pg (25-34); Mean Corpuscular Hgb Conc 31.8 g/dL (32-36); Mean Corpuscular Volume 86.5 fL (80-100); Mean Platelet Volume 12.1 fL (7.4-10.4); Platelet Count 126 K/uL (130-400); RDW Standard Deviation 54.2 fL (36.4-46.3); Red Blood Count 3.85 M/uL (4.2-5.4); White Blood Count 7.79 K/uL (4.8-10.8)
[2019-10-14] MEDS: HEPARIN SOD 5,000 UNIT/0.5 ML VIAL SQ SCH ×2 (07:48→21:22)
[2019-10-14] MEDS: INSULIN GLARGINE SOLOSTAR 100 UNITS/ML 3 ML PEN SC SCH (07:48)
[2019-10-14] MEDS: UMECLIDINIUM BROMIDE 62.5MCG/BLISTER 7 PUFFS/INHALER INH SCH (07:48)
[2019-10-14] MEDS: CLOPIDOGREL BISULFATE 75 MG TAB PO SCH (07:49)
[2019-10-14] MEDS: RANOLAZINE 500 MG ER TAB PO SCH ×2 (07:49→21:20)
[2019-10-14] MEDS: MAGNESIUM OXIDE 400 MG TAB PO SCH (07:49)
[2019-10-14] MEDS: ROSUVASTATIN CALCIUM 20 MG TAB PO SCH (07:49)
[2019-10-14] MEDS: POTASSIUM CHLORIDE 10 MEQ TABCR PO SCH ×2 (07:49→21:19)
[2019-10-14] MEDS: SENNA 8.6 MG TAB PO SCH (07:49)
[2019-10-14] MEDS: PREGABALIN 75 MG CAP PO SCH ×3 (07:50→21:19)
[2019-10-14] MEDS: INSULIN ASPART 100 UNITS/ML 3 ML PEN SC SCH ×4 (07:50→21:12)
[2019-10-14] MEDS: DULOXETINE HCL 60 MG CAP PO SCH (07:50)
[2019-10-14 08:12] LABS: Albumin Level 2.1 gm/dl (3.4-5.0); BUN Creatinine Ratio 7.6 (10-20); Calcium 8.8 mg/dl (8.5-10.1); Creatinine Clr Calc Pharmacy 55.4 ml/min; Est GFR (African American) 51.6; Est GFR (Non-African American) 44.6; Potassium 3.8 mmol/L (3.5-5.1)
[2019-10-14 08:15] LABS: Albumin Globulin Ratio 0.5 (0.9-2); Bilirubin,Total 0.6 mg/dl (0.2-1); Globulin 3.9 gm/dl (2.5-4.0)
[2019-10-14] MEDS: POLYETHYLENE (MIRALAX) 17 GM PACK PO SCH ×2 (12:16→21:19)
--- NOTE | 2019-10-14 12:46 | Surgery Progress Note ---
Date of Service October 14, 2019 Assessment & Plan (1) Right sided abdominal pain: 63 year-old obese female with multiple comorbidities including extensive vasculopathy who presented to ED on 10/10/2019 with right lower quadrant abdominal pain. CTA showing focal moderate thickening and pericolonic fat stranding surrounding colon consistent with nonspecific colitis. Leukocytosis 16K on presentation. Has been afebrile. WBC now down to 7k today. Clinically continues to improve. Required little IV pain medication yesterday. Plan: uncertain of etiology of RLQ abdominal pain. Likely nonspecific colitis based on CT scan results. Could also be fecal retention seen throughout the colon on imaging. She had colonoscopy in 07/2019 which showed two hyperplastic polyps at sigmoid colon otherwise unremarkable. No history of diarrhea or blood in stools. Her pain has improved since admission and her white count is down. She has no acute abdominal signs. Would advance diet as tolerated. Consider bowel regimen on discharge No acute surgical intervention required at this time. Our services signing off, please call with questions or concerns. Dr. Cosby was present during my examination and agrees with above. Subjective feeling better today pain has improved today, pain only with movement/activity, when sitting still no abdominal pain no nausea or vomiting tolerating liquids no fever or chills has small formed bowel movement earlier today Physical Exam Constitutional: WD/WN, vitals as above + morbidly obese; no acute distress Respiratory: normal respiratory effort; no respiratory distress Gastrointestinal (Abdomen): Inspection/Auscultation: abdomen normal to inspection; abdomen not distended Percussion/Palpation: + abdomen tender (RUQ and RLQ on deep palpation, improved compared to yesterday) and abdomen soft; no guarding and abdomen not rigid Skin: no rashes, warm and dry Psychiatric: A+Ox3, euthymic affect Results & Data Vital Signs (Past 12 Hours) Vital Signs Temp Pulse Pulse Resp BP Pulse Ox 10/14/19 11:49 36.8 C 106 H 20 123/79 92 10/14/19 08:05 36.8 C 108 H 16 156/82 H 94 10/14/19 04:09 36.8 C 103 H 18 143/84 H 91 10/14/19 02:14 99 H Laboratory Results 10/14/19 10/14/19 10/14/19 Range/Units 11:40 07:37 07:25 WBC (4.8-10.8) K/uL RBC (4.2-5.4) M/uL Hgb (12.0-16.0) g/dL Hct (37-47) % MCV (80-100) fL MCH (25-34) pg MCHC (32-36) g/dL RDW Std Deviation (36.4-46.3) fL RDW Coeff of Tosin (11.5-14.5) % Plt Count (130-400) K/uL MPV (7.4-10.4) fL Sodium 137 (136-145) mmol/L Potassium 3.8 (3.5-5.1) mmol/L Chloride 102 (98-107) mmol/L Carbon Dioxide 28 (21-32) mmol/L Anion Gap 6.0 (3-11) BUN 10 (7-18) mg/dl Creatinine 1.27 H (0.6-1.2) mg/dl Est Cr Clr Drug Dosing 55.4 ml/min Est GFR ( Amer) 51.6 Est GFR (Non-Af Amer) 44.6 BUN/Creatinine Ratio 7.6 L (10-20) Glucose 131 H (70-99) mg/dl POC Glucose 118 H 116 H (70-99) mg/dl Calcium 8.8 (8.5-10.1) mg/dl Total Bilirubin 0.6 (0.2-1) mg/dl GGT (3-65) U/L AST 86 H (15-37) U/L ALT 38 (12-78) U/L Alkaline Phosphatase 185 H (45-117) U/L Total Protein 6.0 L (6.4-8.2) gm/dl Albumin 2.1 L (3.4-5.0) gm/dl Globulin 3.9 (2.5-4.0) gm/dl Albumin/Globulin Ratio 0.5 L (0.9-2) 10/14/19 10/13/19 10/13/19 Range/Units 07:25 20:33 16:42 WBC 7.79 (4.8-10.8) K/uL RBC 3.85 L (4.2-5.4) M/uL Hgb 10.6 L (12.0-16.0) g/dL Hct 33.3 L (37-47) % MCV 86.5 (80-100) fL MCH 27.5 (25-34) pg MCHC 31.8 L (32-36) g/dL RDW Std Deviation 54.2 H (36.4-46.3) fL RDW Coeff of Tosin 17.0 H (11.5-14.5) % Plt Count 126 L (130-400) K/uL MPV 12.1 H (7.4-10.4) fL Sodium (136-145) mmol/L Potassium (3.5-5.1) mmol/L Chloride (98-107) mmol/L Carbon Dioxide (21-32) mmol/L Anion Gap (3-11) BUN (7-18) mg/dl Creatinine (0.6-1.2) mg/dl Est Cr Clr Drug Dosing ml/min Est GFR ( Amer) Est GFR (Non-Af Amer) BUN/Creatinine Ratio (10-20) Glucose (70-99) mg/dl POC Glucose 131 H 142 H (70-99) mg/dl Calcium (8.5-10.1) mg/dl Total Bilirubin (0.2-1) mg/dl GGT (3-65) U/L AST (15-37) U/L ALT (12-78) U/L Alkaline Phosphatase (45-117) U/L Total Protein (6.4-8.2) gm/dl Albumin (3.4-5.0) gm/dl Globulin (2.5-4.0) gm/dl Albumin/Globulin Ratio (0.9-2) 10/11/19 Range/Units 05:22 WBC (4.8-10.8) K/uL RBC (4.2-5.4) M/uL Hgb (12.0-16.0) g/dL Hct (37-47) % MCV (80-100) fL MCH (25-34) pg MCHC (32-36) g/dL RDW Std Deviation (36.4-46.3) fL RDW Coeff of Tosin (11.5-14.5) % Plt Count (130-400) K/uL MPV (7.4-10.4) fL Sodium (136-145) mmol/L Potassium (3.5-5.1) mmol/L Chloride (98-107) mmol/L Carbon Dioxide (21-32) mmol/L Anion Gap (3-11) BUN (7-18) mg/dl Creatinine (0.6-1.2) mg/dl Est Cr Clr Drug Dosing ml/min Est GFR ( Amer) Est GFR (Non-Af Amer) BUN/Creatinine Ratio (10-20) Glucose (70-99) mg/dl POC Glucose (70-99) mg/dl Calcium (8.5-10.1) mg/dl Total Bilirubin (0.2-1) mg/dl GGT 23 (3-65) U/L AST (15-37) U/L ALT (12-78) U/L Alkaline Phosphatase (45-117) U/L Total Protein (6.4-8.2) gm/dl Albumin (3.4-5.0) gm/dl Globulin (2.5-4.0) gm/dl Albumin/Globulin Ratio (0.9-2)
--- NOTE | 2019-10-14 13:21 | Hospitalist Progress Note ---
Date of Service October 14, 2019 Assessment & Plan (1) Abdominal pain: CTA a/p on 10/11 showed "focal moderate thickening and pericolonic fat stranding surrounding the cecum favoring a nonspecific colitis" & "focal moderate narrowing of approximately 50% at the takeoff of the SMA." Lactic acid initially was 2.4, now down to 1.2. - Started on abx on admission -> Now on Zosyn - Surgery consulted on 10/13 - Feel she is improving and treating for a non- specific colitis vs. fecal retention. - Improving today. Still with some tenderness to the RLQ, but otherwise minimal abdominal pain. (2) Sepsis: Sepsis POA treated and resolved with IVF bolus and IV antibiotics. - As above (3) Hx of non-ST elevation myocardial infarction (NSTEMI): Patient follows with Dr. Mojica for pacemaker and CAD, pacemaker placed in 2015, several [facility] over past few years. Patient previously hospitalized in February 2019 for afib with RVR then determined to be focal atrial tachycardia. - Holding diltiazem 240 mg ER daily due to soft BP; holding torsemide - Restarted diltiazem on 10/14 - Continue Ranexa (4) CKD (chronic kidney disease) stage 3, GFR 30-59 ml/min: Baseline Cr ~1.3 to 1.5, eGFR ~45. - At baseline as of 10/14. - Monitor (5) SSS (sick sinus syndrome): With pacemaker implantation. - No inpatient needs (6) Systolic and diastolic CHF, chronic: Last echo on 05/10/2019 with EF of 55=60%. - Appeared euvolemic on admission. - Holding torsemide secondary to a slight creatinine bump, monitor since was given IV fluids in ER for volume overload. (7) PAD (peripheral artery disease): Previously followed by Dr. Sheffield in [place], s/p left carotid endarterectomy and restented, multiple stents in both legs. Follows with [place] [facility] once yearly. - Continue Plavix - Continue rosuvastatin (8) HTN (hypertension): Presently BP is 120/80. - Restarted diltiazem on 10/14 - Holding Imdur & torsemide (9) COPD (chronic obstructive pulmonary disease): Follows with pulmonology as an outpatient, PFT revealed moderate obstruction without significant improvement after bronchodilator. - Continue Spiriva, DuoNebs prn - Continue 2 L O2 HS (10) DM II (diabetes mellitus, type II), controlled: A1c was 9.5% this admission. - Sliding scale insulin - Hold Januvia, metformin, glimepiride - Glycemic pharmacist managing (11) Obesity: BMI 43.1. - Diet and exercise to be encouraged - Heart healthy/diabetic diet (12) Nicotine dependence: History of such, no longer smokes, no need for nicotine patch. (13) Depression with anxiety: No present symptoms. - Continue Cymbalta 60 mg daily, Ativan 0.5 mg twice daily prn (14) Diabetic toe ulcer: Following with [place] [facility]. - No inpatient needs (15) DVT prophylaxis: - Teds, continue Plavix Subjective Doing better today. Pain is improved unless she is up and walking around. Overall much better. No nausea or vomiting. Reports no fevers/chills, chest pain, shortness of breath, abdominal pain, nausea, or vomiting. Physical Exam Constitutional: WD/WN, vitals as above well nourished and + obese Eyes: EOM intact bilaterally; no conjunctival abnormality ENMT: external ear and nose normal, oropharynx normal Neck: trachea midline, no thyromegaly normal visual inspection Respiratory: normal respiratory effort, lungs clear to auscultation no respiratory distress Cardiovascular: Rate/Rhythm: regular rhythm and + tachycardic Heart Sounds: normal S1 and normal S2 Vessels: no JVD Extremities: no edema Gastrointestinal (Abdomen): Inspection/Auscultation: abdomen normal to inspection; abdomen not distended Percussion/Palpation: + abdomen tender (RLQ) and abdomen soft; no guarding and abdomen not rigid Musculoskeletal: no cyanosis or clubbing, extremities motor strength 5/5 Skin: no rashes, warm and dry Neurologic: moves all extremities and awake Psychiatric: Orientation: alert, oriented to person and cooperative Results & Data ([facility]) Vital Signs (Past 12 Hours) Vital Signs Temp Pulse Pulse Resp BP Pulse Ox 10/14/19 11:49 36.8 C 106 H 20 123/79 92 10/14/19 08:05 36.8 C 108 H 16 156/82 H 94 10/14/19 04:09 36.8 C 103 H 18 143/84 H 91 10/14/19 02:14 99 H PG Care Time/CCT Total # of Minutes Spent Total Time Spent with Patient: Total time spent is greater than 50% in coordination of care (as documented) at patient's floor/unit and/or counseling patient: Coding Level of Care Code 54502 Subseq Hosp Care Lvl 3 Diagnoses Abdominal pain R10.9 Sepsis A41.9 Hx of non-ST elevation myocardial infarction (NSTEMI) I25.2 CKD (chronic kidney disease) stage 3, GFR 30-59 ml/min N18.3 SSS (sick sinus syndrome) I49.5 Systolic and diastolic CHF, chronic I50.42 PAD (peripheral artery disease) I73.9 HTN (hypertension) I10 Hypertension type: essential hypertension COPD (chronic obstructive pulmonary disease) J44.9 COPD type: unspecified COPD DM II (diabetes mellitus, type II), controlled E11.9 Obesity E66.9 Nicotine dependence F17.200 Depression with anxiety F41.8 Diabetic toe ulcer E11.621; L97.509 DVT prophylaxis Z29.9 (1) HTN (hypertension) Hypertension type: essential hypertension Qualified Code(s): I10 - Essential (primary) hypertension (2) COPD (chronic obstructive pulmonary disease) COPD type: unspecified COPD Qualified Code(s): J44.9 - Chronic obstructive pulmonary disease, unspecified
[2019-10-14] MEDS: dilTIAZem HCL 180 MG CAPCR PO SCH (13:40)
[2019-10-14] MEDS: PRAMIPEXOLE DIHYDROCHLO 0.25 MG TAB PO SCH (21:20)
[2019-10-15] MEDS: ROSUVASTATIN CALCIUM 20 MG TAB PO SCH (07:34)
[2019-10-15] MEDS: CLOPIDOGREL BISULFATE 75 MG TAB PO SCH (07:34)
[2019-10-15] MEDS: RANOLAZINE 500 MG ER TAB PO SCH (07:34)
[2019-10-15] MEDS: MAGNESIUM OXIDE 400 MG TAB PO SCH (07:34)
[2019-10-15] MEDS: POTASSIUM CHLORIDE 10 MEQ TABCR PO SCH (07:34)
[2019-10-15] MEDS: DULOXETINE HCL 60 MG CAP PO SCH (07:34)
[2019-10-15 07:35] LABS: Hematocrit (blood only) 33.4 % (37-47); Hemoglobin 10.6 g/dL (12.0-16.0); Mean Corpuscular Hemoglobin 27.5 pg (25-34); Mean Corpuscular Hgb Conc 31.7 g/dL (32-36); Mean Corpuscular Volume 86.5 fL (80-100); Mean Platelet Volume 12.1 fL (7.4-10.4); Nucleated RBC # (auto) 0.02 K/uL (0-0); Nucleated RBC % (auto) 0.5 %; Platelet Count 137 K/uL (130-400); RDW Coefficient of Variation 17.2 % (11.5-14.5); RDW Standard Deviation 54.5 fL (36.4-46.3); Red Blood Count 3.86 M/uL (4.2-5.4); White Blood Count 5.08 K/uL (4.8-10.8)
[2019-10-15] MEDS: UMECLIDINIUM BROMIDE 62.5MCG/BLISTER 7 PUFFS/INHALER INH SCH (07:35)
[2019-10-15] MEDS: dilTIAZem HCL 180 MG CAPCR PO SCH (07:35)
[2019-10-15] MEDS: PREGABALIN 75 MG CAP PO SCH (07:36)
[2019-10-15] MEDS: POLYETHYLENE (MIRALAX) 17 GM PACK PO SCH (07:47)
[2019-10-15] MEDS: SENNA 8.6 MG TAB PO SCH (07:47)
[2019-10-15 08:09] LABS: Albumin Level 2.1 gm/dl (3.4-5.0); Calcium 8.7 mg/dl (8.5-10.1); Est GFR (African American) 50.7; Est GFR (Non-African American) 43.7; Magnesium 2.1 mg/dl (1.8-2.4); Potassium 3.4 mmol/L (3.5-5.1)
[2019-10-15 08:13] LABS: Albumin Globulin Ratio 0.5 (0.9-2); Bilirubin,Total 0.5 mg/dl (0.2-1); Globulin 3.8 gm/dl (2.5-4.0); Phosphorus 2.9 mg/dl (2.5-4.9); Total Protein 5.9 gm/dl (6.4-8.2)
[2019-10-15] MEDS: INSULIN ASPART 100 UNITS/ML 3 ML PEN SC SCH (08:47)
[2019-10-15] MEDS: HEPARIN SOD 5,000 UNIT/0.5 ML VIAL SQ SCH (08:47)
[2019-10-15] MEDS: INSULIN GLARGINE SOLOSTAR 100 UNITS/ML 3 ML PEN SC SCH (08:47)
--- NOTE | 2019-10-15 11:39 | Pharmacy Report ---
Pharmacy Glycemic Short Note 2 - Date of Service October 15, 2019 - Glycemic Short BSG Results (Last 24 hours): 10/14/19 10/14/19 10/14/19 11:40 16:22 20:03 Glucose POC Glucose 118 H 124 H 164 H 10/15/19 07:10 Glucose 184 H POC Glucose OUTPATIENT ANTIDIABETIC REGIMEN: * Glimepiride 1 mg daily, metformin 1000 mg BID, januvia 100 mg daily * A1c 9.5% 10/12/2019, previous in April 2019 7.1% ASSESSMENT: * Ms. Sanz has been reasonably well controlled with 10 units of lantus and weight based stress of 2 novolog parameters * BSGs ranged from 116-164 yesterday, will continue current parameters PLAN FOR INPATIENT GLYCEMIC CONTROL: * Hold outpatient oral diabetes medications * Basal insulin * Lantus 10 units QAM * Bolus insulin * NovoLog per scale ACHS or Q6hrs while NPO * Goal Range: Low 110 mg/dL - High 140 mg/dL * Correction Factor: 20 mg/dL/unit * Nutritional / Prandial insulin per carb ratio of 1 unit per 7 grams CHO consumed PLAN FOR DISCHARGE: * A1c 9.5% above goal range of <7%. 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 Would encourage lifestyle modification and agree patient could consider discontinuing glimepiride and trialing a GLP-1 agonist, this can be discussed in follow-up with endocrinology.
--- NOTE | 2019-10-15 13:23 | Discharge Summary ---
Date of Service October 15, 2019 Admission HPI Per Admitting Provider This is a 63 yo female with PMHx of HTN, HLD, peripheral edema, chronic systolic and diastolic CHF, history of NSTEMI with multiple stents which occurred in May 2018, PAD s/p aortobifemoral bypass, paroxysmal SVT, sick sinus syndrome, s/p pacemaker, DM type II, COPD, wears supplemental O2 2 L at bedtime, diabetic toe wound for which she sees [facility], chronic low back pain, anemia, hx of tobacco use who presented with acute onset of abdominal pain. The patient is very somnolent and hard to keep awake during my exam, she received 1 dose of Dilaudid 0.5 mg around 6 AM. She reports abdominal pain started at approximately 1 AM in the upper abdomen but then proceeded to worsen and felt generalized, she admits to feeling bloated, reports not having a bowel movement x2 days, no nausea, no vomiting, no diarrhea. He denies any changes in her diet. Patient has what appears to be a urinary tract infection on UA however denies any urinary symptoms including frequency, burning, discharge. She denies any respiratory or cardiac symptoms. She reports that she was in her normal state of health yesterday. Patient has been taking all her medications as scheduled, but missed them this morning. Principal Diagnosis Non-specific colitis Discharge Exam Constitutional WD/WN, vitals as above well nourished and + obese Eyes EOM intact bilaterally; no conjunctival abnormality ENMT external ear and nose normal, oropharynx normal Neck trachea midline, no thyromegaly normal visual inspection Respiratory normal respiratory effort, lungs clear to auscultation no respiratory distress Cardiovascular Rate/Rhythm: regular rhythm and + tachycardic Heart Sounds: normal S1 and normal S2 Vessels: no JVD Extremities: no edema Gastrointestinal (Abdomen) Inspection/Auscultation: abdomen normal to inspection; abdomen not distended Percussion/Palpation: + abdomen tender (RLQ) and abdomen soft; no guarding and abdomen not rigid Musculoskeletal no cyanosis or clubbing, extremities motor strength 5/5 Skin no rashes, warm and dry Neurologic moves all extremities and awake Psychiatric Orientation: alert, oriented to person and cooperative Discharge Data Allergies Allergy/AdvReac Type Severity Reaction Status Date / Time No Known Allergies Allergy Unverified 10/11/19 05:35 Consultations 02/01/20 08:00 ED Decision to Admit Stat 10/11/19 09:45 Consult Case Management - Discharge Planning Routine 10/11/19 19:44 Consult Corduroy Brusher Operator Routine 10/13/19 12:10 Consult General Surgery Routine Ordered Studies 10/11/19 05:14 CT angio abdomen pelvis w con Stat 10/11/19 12:47 US point of care ultrasound Urgent Hospital Course (1) Abdominal pain: CTA a/p on 10/11 showed "focal moderate thickening and pericolonic fat stranding surrounding the cecum favoring a nonspecific colitis" & "focal moderate narrowing of approximately 50% at the takeoff of the SMA." Lactic acid initially was 2.4, now down to 1.2. - Started on abx on admission -> Now on Zosyn - Surgery consulted on 10/13 - Feel she is improving and treating for a non- specific colitis vs. fecal retention. - Improving today. Still with some tenderness to the RLQ, but otherwise m inimal abdominal pain. Discharged on 3 more days of Augmentin. (2) Sepsis: Sepsis POA treated and resolved with IVF bolus and IV antibiotics. Unknown source. - As above (3) Hx of non-ST elevation myocardial infarction (NSTEMI): Patient follows with Dr. Mojica for pacemaker and CAD, pacemaker placed in 2016, several [place] over past few years. Patient previously hospitalized in February 2019 for afib with RVR then determined to be focal atrial tachycardia. - Held diltiazem 240 mg ER daily due to soft BP; holding torsemide - Restarted diltiazem on 10/14 -> Back on home meds on discharge. - Continue Ranexa (4) CKD (chronic kidney disease) stage 3, GFR 30-59 ml/min: Baseline Cr ~1.3 to 1.5, eGFR ~45. - At baseline as of 10/14. - Monitor (5) SSS (sick sinus syndrome): With pacemaker implantation. - No inpatient needs (6) Systolic and diastolic CHF, chronic: Last echo on 05/10/2019 with EF of 55=60%. - Appeared euvolemic on admission. - Holding torsemide secondary to a slight creatinine bump, monitor since was given IV fluids in ER for volume overload. Restarted on discharge. (7) PAD (peripheral artery disease): Previously followed by Dr. Sheffield in [place], s/p left carotid endarterectomy and restented, multiple stents in both legs. Follows with [place] [facility] once yearly. - Continue Plavix - Continue rosuvastatin (8) HTN (hypertension): Presently BP is 120/80. - Restarted diltiazem on 10/14 (9) COPD (chronic obstructive pulmonary disease): Follows with pulmonology as an outpatient, PFT revealed moderate obstruction without significant improvement after bronchodilator. - Continue Spiriva, DuoNebs prn - Continue 2 L O2 HS (10) DM II (diabetes mellitus, type II), controlled: A1c was 9.5% this admission. - Sliding scale insulin - Held Januvia, metformin, glimepiride - Glycemic pharmacist managing (11) Obesity: BMI 43.1. - Heart healthy/diabetic diet (12) Nicotine dependence: History of such, no longer smokes, no need for nicotine patch. (13) Depression with anxiety: No present symptoms. - Continue Cymbalta 60 mg daily, Ativan 0.5 mg twice daily prn (14) Diabetic toe ulcer: Following with [facility]. - No inpatient needs (15) DVT prophylaxis: - Teds, continue Plavix Total Time Total Time Spent Total Time Spent (In Minutes): 35 Discharge Plan Discharge Items Patient Disposition: Home - Self-Care Reason For Visit: ABDOMINAL PAIN, UTI Discharge Diagnosis: Abdominal pain -> Likely stomach bug Activity: Resume your previous activity Non-emergency contact: Primary Care Provider Call non-emergency contact if: your pain is not controlled, your pain is worsening and your temperature is above 101 Follow-up/Referrals: Glenny Correa CRNP [Primary Care Provider] - 10/22/19 10:30 am (If you need to change this appointment, please call [phone].) Diet: Low Fiber Addtl Attending Provider Instructions: Ms. Sanz, You were admitted with stomach pain the right lower quadrant of your stomach. A CT scan of your abdomen showed mild inflammation at the point where your small and large intestines meet. We gave you antibiotics, and this improved your pain. Your white count a marker of infection) became normal as well. We will send you out with a few more days of antibiotics. Please see your PCP this week to be sure the pain is getting better and gone away. Pending Studies at Discharge: No Stand-Alone Forms: Call Back Authorization, [facility], Smoking Cessation Medications and DC Order Prescriptions: New amoxicillin-pot clavulanate [Augmentin] 875-125 mg tablet 1 tab PO BID Qty: 7 RF: 0 Continued lorazepam 0.5 mg tablet 0.5 mg PO BID PRN (Reason: Anxiety) RF: 0 ipratropium-albuterol 0.5 mg-3 mg(2.5 mg base)/3 mL solution for nebulization 3 ml INH Q4H PRN (Reason: shortness of breath or wheezing) Qty: 90 RF: 2 glimepiride 1 mg tablet 1 mg PO QAM Qty: 90 RF: 3 potassium chloride 10 mEq tablet extended release 10 meq PO BID Qty: 180 RF: 3 ranolazine [Ranexa] 500 mg tablet extended release 12 hr 500 mg PO BID Qty: 180 RF: 3 rosuvastatin 40 mg tablet 40 mg PO QAM Qty: 90 RF: 3 diltiazem HCl 240 mg capsule,extended release 24hr 240 mg PO QAM Qty: 90 RF: 3 pregabalin [Lyrica] 75 mg capsule 75 mg PO TID Qty: 90 RF: 3 torsemide 20 mg tablet 30 mg PO DAILY Qty: 135 RF: 3 pramipexole 0.75 mg tablet 0.75 mg PO HS Qty: 90 RF: 1 albuterol sulfate [Ventolin HFA] 90 mcg/actuation HFA aerosol inhaler 2 puffs INH Q6H PRN (Reason: shortness of breath or wheezing) Qty: 8 RF: 2 nitroglycerin 0.4 mg tablet, sublingual 0.4 mg SL Q5M PRN (Reason: Angina) Qty: 1 RF: 0 (DME) Over Night Pulse OX Misc See Dose Instructions .ROUTE .MEDSUPPLY Qty: 1 RF: 0 metoprolol tartrate 100 mg Tablet 100 mg PO BID RF: 0 metformin 1,000 mg Tablet 1,000 mg PO BID RF: 0 isosorbide mononitrate 30 mg tablet extended release 24 hr 30 mg PO QAM RF: 0 clopidogrel [Plavix] 75 mg tablet 75 mg PO QAM RF: 0 magnesium oxide 400 mg (241.3 mg magnesium) tablet 400 mg PO QAM RF: 0 duloxetine 60 mg capsule,delayed release(DR/EC) 60 mg PO QAM RF: 0 Januvia 100 mg tablet 100 mg PO QAM RF: 0 Spiriva Respimat 2.5 mcg/actuation mist 2 puffs INH QAM RF: 0 Discharge Orders: Discharge Order (Routine); Ordered 10/15/19 Ordered By: Deep Lopez/Other Patient Handouts: Diabetes Healthy Meals, Diabetes Meal Planning Admission Data Admit Date/Time: 10/11/19 08:38 Attending Provider: Deep Dick Admit Provider: Delfino Schultz Primary Care Provider: Glenny Correa Other Providers: Alberto Borges ; Deep Dick ; Pal Cosby Other Interventions: Discharge Summary Assessment (RN) Last Done: 10/15/19 11:40 DC Date/Time DO NOT enter until pt leaves facility: 10/15/19 12:30 Coding Level of Care Code D/C Day Management >30 mins Diagnoses Abdominal pain R10.9 Sepsis A41.9 Hx of non-ST elevation myocardial infarction (NSTEMI) I25.2 CKD (chronic kidney disease) stage 3, GFR 30-59 ml/min N18.3 SSS (sick sinus syndrome) I49.5 Systolic and diastolic CHF, chronic I50.42 PAD (peripheral artery disease) I73.9 HTN (hypertension) I10 Hypertension type: essential hypertension COPD (chronic obstructive pulmonary disease) J44.9 COPD type: unspecified COPD DM II (diabetes mellitus, type II), controlled E11.9 Obesity E66.9 Nicotine dependence F17.200 Depression with anxiety F41.8 Diabetic toe ulcer E11.621; L97.509 DVT prophylaxis Z29.9
== END 2019-10-15 12:30 | disposition home or self-care (01) | DRG 872 ==
LOC: ED 04:50 → 2N 08:38 → SUATTDRO 08:38 → 2N 08:58 → 1E 11:14 → 2W 10-12 09:47

== ENCOUNTER 2019-11-20 15:08 | Observation (INO) ==
--- NOTE | 2019-11-20 15:24 | Emergency Department Note ---
ED Provider Note NAME: ROBERT QUINTANILLA AGE: 63 SEX: F ARRIVES VIA: Ambulance INFORMANT: Patient, EMS ED PROVIDER(S): Hardik Knox MD CHIEF COMPLAINT: Dizziness, malaise IMPRESSION: Acute kidney injury Dizziness Orthostasis Leukocytosis PLAN: Disposition: Admitted Condition: [Good] MEDICAL DECISION MAKING: Patient presented by ambulance from the clinic due to dizziness and orthostasis. She has recently been started on antibiotics and prednisone for an upper respiratory infection. She also recently had a endarterectomy. She notes she is not eating and drinking well. Her symptoms have progressed over the last few days. She was hydrated here. Blood work revealed acute kidney injury. The patient is anticoagulated. There is no significant anemia. She is mildly hyperglycemic as well. Given the dizziness and acute kidney injury I discussed further management in the hospital. Patient family felt comfortable with the plan. Consultation was made with internal medicine and the patient was evaluated in the ER for further management. Triage Nursing notes reviewed and agree them. [Additional history obtained from] family [Prior medical records reviewed] patient's creatinine is normally in the 1.2-1.3 range. Vital Signs: reviewed and remarkable for [no significant abnormalities] Differential diagnosis: Vasovagal event, dehydration, infection, hypoglycemia, electrolyte abnormalities, cardiac sources, intracerebral event, pulmonary embolism, seizure, toxicologic, neurologic, as well as other pathologies. ER treatment provided: Saline hydration Diagnostics interpreted by me: ECG: Rate: 63 Rhythm: Sinus with intermittent pacing [place]: Normal QRS: Normal ST segements: No ST elevation or depression Cardiac Monitoring: Cardiac monitoring ordered: The patient was placed on continuous cardiac monitoring and observed. It revealed a sinus rhythm at 64 without ectopy or evidence of dysrhythmia. Occasional pacer spikes noted. Laboratory studies: Mild leukocytosis on CBC. Chemistry panel revealed ANNETTE. Urinalysis negative. See below Imaging studies: Chest x-ray is negative for acute process. Consultation(s): Consultation was made with internal medicine. The case was discussed with Dr. Diehl. The patient was evaluated in the ER for further management. HPI: The patient is a 63 year old female who presents to the Emergency Room with complaints of dizziness. This started 3 days ago and is worsening. The patient also notes the following associated symptoms, lightheaded, SOB, cough, RLQ abd pain around a heparin injection site, diarrhea. The patient has had no relieving factors. Current pain is rated as 5/10. She had a carotid endarterectomy done 2 weeks ago in [facility] [place]. SHe was at her PCP when she was found to be orthostatic. She was started on Prednisone and an antibiotic yesterday for the cough. Pt denies LOC, headache, fevers, chills, diaphoresis, visual changes, neck pain, chest pain, breathing difficulties, nausea, vomiting, abdominal pain, back pain, melena, hematochezia, urinary symptoms, numbness, weakness, lymphadenopathy, rash, or other complaints. ROS: See above HPI for pertinent positives & negatives. A total of 10 systems reviewed and were otherwise negative. PAST MEDICAL HISTORY:COPD, UTI, CAD PAST SURGICAL HISTORY:CEA FAMILY HISTORY:See Below SOCIAL HISTORY:Occasional ETOH HOME MEDICATIONS:See Below ALLERGIES:See Below VITALS:See Below PHYSICAL EXAMINATION: GENERAL: Awake, alert, tired-appearing, in no distress HENT: Normocephalic, atraumatic. Oropharynx unremarkable. EYES: Normal conjunctiva. Sclera non-icteric. NECK: Inspection normal. Non-tender. Supple. No nuchal rigidity. FROM. No masses. Right CEA incision CDI, no hematoma. RESPIRATORY: Clear to auscultation. No wheezes. No rales. Normal respiratory effort. CARDIAC: Normal rate. Normal rhythm. No murmurs. No rubs. Extremities warm and well perfused. Pulses equal. No JVD. GI: Soft, non-distended. No tenderness to palpation. No rebound or guarding. No masses. RECTAL: Deferred. MUSCULOSKELETAL: Atraumatic. Chest examination reveals no tenderness. The back is symmetrical on inspection without obvious abnormality. There is no CVA tenderness to palpation. No joint edema. LOWER EXTREMITIES: Calves are equal size bilaterally and non-tender. No edema. No discoloration. NEURO: Normal sensorium. No sensory or motor deficits noted. SKIN: No rash or jaundice noted. ED COURSE: Procedures: [none] [Critical Care:] [None] Impression & Plan Acute kidney injury, Dizziness Past Med/Surg History Medical History ANNETTE (acute kidney injury) Altered mental status Anxiety Bulging discs CAD (coronary artery disease) Chronic back pain Combined systolic and diastolic heart failure COPD (chronic obstructive pulmonary disease) Degenerative disc disease Depression with anxiety Diabetic nephropathy DM II (diabetes mellitus, type II), controlled Dyspnea HLD (hyperlipidemia) HTN (hypertension) Hx of non-ST elevation myocardial infarction (NSTEMI) 05/2018 Hyperlipidemia Hypertension (Acute) Hypokalemia Hyponatremia Hypoxia Left ventricular diastolic dysfunction Medical marijuana use Metabolic encephalopathy Myocardial Infarction 05/2018 - [facility] Obesity Pacemaker 05/2015 - Sick sinus syndrome - Last checked 02/2019 ([facility]) - [employer] PAD (peripheral artery disease) Paroxysmal SVT (supraventricular tachycardia) Restless legs Rheumatoid arthritis Spinal stenosis Tachycardia UTI (urinary tract infection) Weakness Surgical History History of cardiac cath 05/2018 - [place] - NO STENTS/ANGIOPLASTY - COLLATERAL CIRCULATION - FOLLOWS W/ DR. ERWIN History of cataract surgery BILATERAL History of cholecystectomy History of intravascular stent placement Multiple stents in bilateral legs, left subclavian, left aortic mesenteric bypass, left carotid endarterectomy History of oral surgery History of tonsillectomy History of tooth extraction S/P cardiac pacemaker procedure Family History Mother , Heart Disease Ruptured Appendix No problems noted. Father , with Vascular and Colon Can No problems noted. Sister No problems noted. Grandfather (Maternal) Family history of diabetes mellitus Social History (Updated 11/20/19 @ 19:26 by Radhika Diehl DO) Preferred Language: Syriac Communication Ability: Effective Visual Impairment: No Limitations [employer] Required: No Beliefs That Will Affect Care: None marital status: Current Living Situation: Family Current Living Situation Comment: Lives with sister Feels Safe at Home: Yes Safety Concerns: Feels Safe At This Time Smoking Status: Former smoker Tobacco Type: cigarettes ; Smoking End Date: 01/11/19 ; Second Hand Exposure: No ; Hx Alcohol Use: No Hx Substance Use: Yes substance use type: marijuana Substance Use Type Other:: "vaping THC" Last Used Substance: Hours (ago) Last Used Substance Other:: medical marijuana vaping, none recently Results & Data Vital Signs Vital Signs - 24 hr 11/20/19 15:17 11/20/19 15:30 11/20/19 15:47 Temperature 36.5 C Temperature Source Oral Pulse Rate - Lying Pulse Rate - Sitting Pulse Rate - Standing Pulse Rate 91 H 64 Pulse Rate [Apical] 64 Pulse Rate from SpO2 Sensor 64 Pulse Rhythm [Apical] Pulse Strength [Apical] Respiratory Rate 26 H 20 16 Respiratory Effort / Characteristics Respiratory Depth Normal Respiratory Pattern Tachypnea Blood Pressure - Lying Blood Pressure - Sitting Blood Pressure- Standing Blood Pressure 157/76 H 147/102 H Blood Pressure [Left Arm] 147/92 H Blood Pressure Mean 103 104 Blood Pressure Mean [Left Arm] 110 Blood Pressure Position [Left Arm] Pulse Oximetry 91 91 96 Oxygen Delivery Method Room Air Room Air Sepsis Recent Fever Within 48 Hours No Sepsis Action Taken by Nursing No Action Required 11/20/19 15:50 11/20/19 15:59 11/20/19 16:11 Temperature Temperature Source Pulse Rate - Lying 75 Pulse Rate - Sitting 63 Pulse Rate - Standing 70 Pulse Rate 66 67 Pulse Rate [Apical] Pulse Rate from SpO2 Sensor Pulse Rhythm [Apical] Pulse Strength [Apical] Respiratory Rate 31 H 17 Respiratory Effort / Characteristics Respiratory Depth Respiratory Pattern Blood Pressure - Lying 157/56 H Blood Pressure - Sitting 147/94 H Blood Pressure- Standing 148/90 H Blood Pressure Blood Pressure [Left Arm] Blood Pressure Mean Blood Pressure Mean [Left Arm] Blood Pressure Position [Left Arm] Pulse Oximetry Oxygen Delivery Method Sepsis Recent Fever Within 48 Hours Sepsis Action Taken by Nursing 11/20/19 16:20 11/20/19 16:30 11/20/19 16:31 Temperature Temperature Source Pulse Rate - Lying Pulse Rate - Sitting Pulse Rate - Standing Pulse Rate 64 66 69 Pulse Rate [Apical] Pulse Rate from SpO2 Sensor Pulse Rhythm [Apical] Pulse Strength [Apical] Respiratory Rate 20 17 17 Respiratory Effort / Characteristics Respiratory Depth Respiratory Pattern Blood Pressure - Lying Blood Pressure - Sitting Blood Pressure- Standing Blood Pressure 143/74 H Blood Pressure [Left Arm] Blood Pressure Mean 92 Blood Pressure Mean [Left Arm] Blood Pressure Position [Left Arm] Pulse Oximetry Oxygen Delivery Method Sepsis Recent Fever Within 48 Hours Sepsis Action Taken by Nursing 11/20/19 16:40 11/20/19 16:50 11/20/19 17:00 Temperature Temperature Source Pulse Rate - Lying Pulse Rate - Sitting Pulse Rate - Standing Pulse Rate 73 71 70 Pulse Rate [Apical] Pulse Rate from SpO2 Sensor Pulse Rhythm [Apical] Pulse Strength [Apical] Respiratory Rate 24 18 14 Respiratory Effort / Characteristics Respiratory Depth Respiratory Pattern Blood Pressure - Lying Blood Pressure - Sitting Blood Pressure- Standing Blood Pressure Blood Pressure [Left Arm] Blood Pressure Mean Blood Pressure Mean [Left Arm] Blood Pressure Position [Left Arm] Pulse Oximetry Oxygen Delivery Method Sepsis Recent Fever Within 48 Hours Sepsis Action Taken by Nursing 11/20/19 17:10 11/20/19 17:20 11/20/19 17:30 Temperature Temperature Source Pulse Rate - Lying Pulse Rate - Sitting Pulse Rate - Standing Pulse Rate 95 H 61 69 Pulse Rate [Apical] Pulse Rate from SpO2 Sensor Pulse Rhythm [Apical] Pulse Strength [Apical] Respiratory Rate 18 18 22 Respiratory Effort / Characteristics Respiratory Depth Respiratory Pattern Blood Pressure - Lying Blood Pressure - Sitting Blood Pressure- Standing Blood Pressure 107/61 Blood Pressure [Left Arm] Blood Pressure Mean 69 Blood Pressure Mean [Left Arm] Blood Pressure Position [Left Arm] Pulse Oximetry Oxygen Delivery Method Sepsis Recent Fever Within 48 Hours Sepsis Action Taken by Nursing 11/20/19 17:40 11/20/19 19:00 Temperature Temperature Source Pulse Rate - Lying Pulse Rate - Sitting Pulse Rate - Standing Pulse Rate 72 Pulse Rate [Apical] 72 Pulse Rate from SpO2 Sensor Pulse Rhythm [Apical] Regular Pulse Strength [Apical] Normal Respiratory Rate 17 18 Respiratory Effort / Characteristics Non-Labored Spontaneous Respiratory Depth Normal Respiratory Pattern Regular Blood Pressure - Lying Blood Pressure - Sitting Blood Pressure- Standing Blood Pressure Blood Pressure [Left Arm] 121/56 L Blood Pressure Mean Blood Pressure Mean [Left Arm] 77 Blood Pressure Position [Left Arm] Lying Pulse Oximetry 92 Oxygen Delivery Method Room Air Sepsis Recent Fever Within 48 Hours Sepsis Action Taken by Nursing Laboratory Data Result diagrams: 11/20/19 15:56 11/20/19 15:56 Lab Results 11/20/19 11/20/19 11/20/19 Range/Units 15:56 15:56 15:56 WBC 12.63 H (4.8-10.8) K/uL RBC 4.57 (4.2-5.4) M/uL Hgb 12.6 (12.0-16.0) g/dL Hct 39.4 (37-47) % MCV 86.2 (80-100) fL MCH 27.6 (25-34) pg MCHC 32.0 (32-36) g/dL RDW Std Deviation 54.5 H (36.4-46.3) fL RDW Coeff of Otsin 17.6 H (11.5-14.5) % Plt Count 231 (130-400) K/uL MPV 12.5 H (7.4-10.4) fL Immature Gran % (Auto) 0.3 % Neut % (Auto) 89.1 % Lymph % (Auto) 8.7 % Weld % (Auto) 1.7 % Eos % (Auto) 0.1 % Baso % (Auto) 0.1 % Immature Gran # (Auto) 0.04 H (0.00-0.02) K/uL Neut # (Auto) 11.26 H (1.4-6.5) K/uL Lymph # (Auto) 1.10 L (1.2-3.4) K/uL Weld # (Auto) 0.21 (0.11-0.59) K/uL Eos # (Auto) 0.01 (0-0.5) K/uL Baso # (Auto) 0.01 (0-0.2) K/uL Sodium 132 L (136-145) mmol/L Potassium 4.2 (3.5-5.1) mmol/L Chloride 96 L (98-107) mmol/L Carbon Dioxide 27 (21-32) mmol/L Anion Gap 9.0 (3-11) BUN 17 (7-18) mg/dl Creatinine 2.05 H (0.6-1.2) mg/dl Est Cr Clr Drug Dosing 32.6 ml/min Est GFR ( Amer) 28.9 Est GFR (Non-Af Amer) 25.0 BUN/Creatinine Ratio 8.3 L (10-20) Glucose 280 H (70-99) mg/dl Calcium 9.0 (8.5-10.1) mg/dl Magnesium 1.6 L (1.8-2.4) mg/dl Total Bilirubin 0.8 (0.2-1) mg/dl AST 23 (15-37) U/L ALT 22 (12-78) U/L Alkaline Phosphatase 125 H (45-117) U/L Troponin I < 0.015 (0-0.045) ng/ml Total Protein 7.3 (6.4-8.2) gm/dl Albumin 3.5 (3.4-5.0) gm/dl Globulin 3.8 (2.5-4.0) gm/dl Albumin/Globulin Ratio 0.9 (0.9-2) TSH 0.906 (0.300-4.500) uIu/ml Urine Color Urine Appearance (Clear) Urine pH (4.5-7.5) Ur Specific [place] (1.000-1.030) Urine Protein (Negative) Urine Glucose (UA) (Negative) Urine Ketones (Negative) Urine Blood (Negative) Urine Nitrite (Negative) Urine Bilirubin (Negative) Urine Urobilinogen (Negative) Ur Leukocyte Esterase (Negative) Influenza Type A Ag Neg for Influ A (Neg) Influenza Type B Ag Neg for Influ B (Neg) 11/20/19 Range/Units 17:13 WBC (4.8-10.8) K/uL RBC (4.2-5.4) M/uL Hgb (12.0-16.0) g/dL Hct (37-47) % MCV (80-100) fL MCH (25-34) pg MCHC (32-36) g/dL RDW Std Deviation (36.4-46.3) fL RDW Coeff of Tosin (11.5-14.5) % Plt Count (130-400) K/uL MPV (7.4-10.4) fL Immature Gran % (Auto) % Neut % (Auto) % Lymph % (Auto) % [place] % (Auto) % Eos % (Auto) % Baso % (Auto) % Immature Gran # (Auto) (0.00-0.02) K/uL Neut # (Auto) (1.4-6.5) K/uL Lymph # (Auto) (1.2-3.4) K/uL [place] # (Auto) (0.11-0.59) K/uL Eos # (Auto) (0-0.5) K/uL Baso # (Auto) (0-0.2) K/uL Sodium (136-145) mmol/L Potassium (3.5-5.1) mmol/L Chloride (98-107) mmol/L Carbon Dioxide (21-32) mmol/L Anion Gap (3-11) BUN (7-18) mg/dl Creatinine (0.6-1.2) mg/dl Est Cr Clr Drug Dosing ml/min Est GFR ( Amer) Est GFR (Non-Af Amer) BUN/Creatinine Ratio (10-20) Glucose (70-99) mg/dl Calcium (8.5-10.1) mg/dl Magnesium (1.8-2.4) mg/dl Total Bilirubin (0.2-1) mg/dl AST (15-37) U/L ALT (12-78) U/L Alkaline Phosphatase (45-117) U/L Troponin I (0-0.045) ng/ml Total Protein (6.4-8.2) gm/dl Albumin (3.4-5.0) gm/dl Globulin (2.5-4.0) gm/dl Albumin/Globulin Ratio (0.9-2) TSH (0.300-4.500) uIu/ml Urine Color Yellow Urine Appearance Clear (Clear) Urine pH 5.0 (4.5-7.5) Ur Specific [place] 1.013 (1.000-1.030) Urine Protein Negative (Negative) Urine Glucose (UA) Negative (Negative) Urine Ketones Negative (Negative) Urine Blood Negative (Negative) Urine Nitrite Negative (Negative) Urine Bilirubin Negative (Negative) Urine Urobilinogen Negative (Negative) Ur Leukocyte Esterase Negative (Negative) Influenza Type A Ag (Neg) Influenza Type B Ag (Neg) Administered Medications Cefdinir (Omnicef Cap) 300 mg PO BID [facility] Stop: 11/27/19 20:59 Last Admin: 11/20/19 21:36 Dose: 300 mg Documented by: [id number] Diltiazem HCl (Cardizem Cd) 240 mg PO QAM [facility] Stop: 12/20/19 21:14 Last Admin: 11/20/19 21:38 Dose: Not Given Documented by: [id number] Magnesium Sulfate/Dextrose (Magnesium Sulfate / D5w) 1 gm in 100 mls @ 100 mls/hr IV Q1H [facility] Stop: 11/21/19 00:14 Last Admin: 11/20/19 22:34 Dose: 100 mls/hr Documented by: [id number] Infusion: 11/20/19 22:30 Dose: 100 mls/hr Documented by: [id number] Admin: 11/20/19 21:30 Dose: 100 mls/hr Documented by: [id number] Sodium Chloride (Nss 1000ml) 1,000 mls @ 80 mls/hr IV .[id number] [facility] Stop: 12/20/19 20:38 Last Admin: 11/20/19 21:30 Dose: 80 mls/hr Documented by: [id number] Insulin Aspart (Novolog Flexpen) 0 units SC ACHS [facility]YN Stop: 12/20/19 20:59 Last Admin: 11/20/19 22:23 Dose: 5 units Documented by: [id number] Cosigned by: [id number] Metoprolol Tartrate (Lopressor) 100 mg PO BID [facility] Stop: 12/20/19 20:59 Last Admin: 11/20/19 21:36 Dose: 100 mg Documented by: [id number] Pregabalin (Lyrica) 75 mg PO TID [facility]YN Stop: 12/20/19 20:59 Last Admin: 11/20/19 21:43 Dose: 75 mg Documented by: [id number] Ranolazine (Ranexa) 500 mg PO BID [facility]YN Stop: 12/20/19 20:59 Last Admin: 11/20/19 21:36 Dose: 500 mg Documented by: [id number] Ticagrelor (Brilinta) 90 mg PO BID [facility]YN Stop: 12/20/19 20:59 Last Admin: 11/20/19 21:35 Dose: 90 mg Documented by: [id number] Discontinued Medications Sodium Chloride (Nss 1000ml) 1,000 mls @ 125 mls/hr IV .Q8H [facility]YN Stop: 11/20/19 23:29 Last Infusion: 11/20/19 18:34 Dose: 0 mls/hr Documented by: [id number] Admin: 11/20/19 16:01 Dose: 125 mls/hr Documented by: [id number] Sodium Chloride (Nss) 500 mls @ 999 mls/hr IV .Q31M ROBYN Stop: 11/20/19 16:00 Last Infusion: 11/20/19 18:24 Dose: 0 mls/hr Documented by: [id number] Admin: 11/20/19 16:00 Dose: 999 mls/hr Documented by: [id number] Sodium Chloride (Nss 1000ml) 1,000 mls @ 125 mls/hr IV .Q8H STA Stop: 11/21/19 02:15 Last Infusion: 11/20/19 22:04 Dose: 0 mls/hr Documented by: [id number] Admin: 11/20/19 18:34 Dose: 125 mls/hr Documented by: [id number] Pramipexole Dihydrochloride (Mirapex) 1 mg PO NOW STA Stop: 11/20/19 18:14 Last Admin: 11/20/19 18:34 Dose: 1 mg Documented by: [id number] Discharge Plan Visit Data *Final* Discharge Date/Time: 11/20/19 20:17 Chief Complaint: Hypotension ED Provider: Hardik Knox Discharge Problem: Acute kidney injury, Dizziness Patient Disposition: Admitted As Inpatient Discharge Instructions Interventions: ED Discharge Assessment Last Done: 11/20/19 20:17
[2019-11-20] MEDS ORDERED: SODIUM CHLORIDE 0.9% 500 ML IV SCH (15:30)
[2019-11-20] MEDS ORDERED: SODIUM CHLORIDE 0.9% 1000ML 1,000 ML IV SCH (15:30)
--- NOTE | 2019-11-20 15:58 | XRay Report ---
XR chest 1V portable CLINICAL HISTORY: weakness dyspnea COMPARISON STUDY: 11/19/2019 FINDINGS: Bipolar cardiac pacemaker in good position. Lungs are clear. Diaphragms are smooth. IMPRESSION: No acute process. ACT 112: Negative or not required by law. The above report was generated using voice recognition software. It may contain grammatical, syntax or spelling errors. Electronically signed by: Alberto Garibay M.D. 11/20/2019 3:57 PM
[2019-11-20 16:04] LABS: Basophils # (auto) 0.01 K/uL (0-0.2); Basophils % (auto) 0.1 %; Eosinophils # (auto) 0.01 K/uL (0-0.5); Eosinophils % (auto) 0.1 %; Hematocrit (blood only) 39.4 % (37-47); Hemoglobin 12.6 g/dL (12.0-16.0); Immature Granulocytes # (auto) 0.04 K/uL (0.00-0.02); Immature Granulocytes % (auto) 0.3 %; Lymphocytes % (auto) 8.7 %; Mean Corpuscular Hemoglobin 27.6 pg (25-34); Mean Corpuscular Volume 86.2 fL (80-100); Mean Platelet Volume 12.5 fL (7.4-10.4); Monocytes # (auto) 0.21 K/uL (0.11-0.59); Monocytes % (auto) 1.7 %; Neutrophils # (auto) 11.26 K/uL (1.4-6.5); Neutrophils % (auto) 89.1 %; Platelet Count 231 K/uL (130-400); RDW Coefficient of Variation 17.6 % (11.5-14.5); RDW Standard Deviation 54.5 fL (36.4-46.3); Red Blood Count 4.57 M/uL (4.2-5.4); White Blood Count 12.63 K/uL (4.8-10.8)
[2019-11-20 16:24] LABS: Alanine Aminotransferase 22 U/L (12-78); Albumin Level 3.5 gm/dl (3.4-5.0); Aspartate Aminotransferase 23 U/L (15-37); BUN Creatinine Ratio 8.3 (10-20); Blood Urea Nitrogen 17 mg/dl (7-18); Carbon Dioxide 27 mmol/L (21-32); Chloride 96 mmol/L (98-107); Creatinine Clr Calc Pharmacy 32.6 ml/min; Est GFR (African American) 28.9; Glucose 280 mg/dl (70-99); Magnesium 1.6 mg/dl (1.8-2.4); Potassium 4.2 mmol/L (3.5-5.1); Sodium 132 mmol/L (136-145)
--- NOTE | 2019-11-20 16:28 | CT Scan Report ---
CT abd pelvis wo con CT DOSE: 2768.83 mGy.cm HISTORY: Pain lower abd pain, near syncope TECHNIQUE: Multiaxial CT images of the abdomen and pelvis were performed without contrast. A dose lo wering technique was utilized adhering to the principles of ALARA. COMPARISON STUDY: 10/11/2019 FINDINGS: Lung bases are clear. Liver spleen and pancreas are unremarkable. Kidneys negative for neph rocalcinosis or hydronephrosis. Prior cholecystectomy. Left lateral abdominal hernia containing several loops of bowel. This is unchanged from the prior arminda dy and is nonobstructive. Minimal infiltrative changes in the pericecal region less prominent as compared to the prior study bu t nevertheless present. No evidence for abscess collection or obstruction. Vascular changes previously described are stable. Bladder is midline. Bladder is midline. There are mild nonspecific infiltrative changes in the fat an terior to the bladder suggesting potential cystitis. IMPRESSION: 1. Nonspecific mild infiltrative changes anterior to the bladder as well as in the right pericecal re gion. 2. This appearance is similar to but less prominent as compared to the prior study of 10/11/2019. 3. A nonspecific inflammatory process of the cecum and/or bladder must be considered. Cystitis is con sidered statistically most likely. 4. Moderate edematous changes the right rectus musculature which potentially indicate a secondary int ramuscular hematoma and/or edematous process. 5. No evidence for abscess collection or obstruction. ACT 112: Negative or not required by law. The above report was generated using voice recognition software. It may contain grammatical, syntax or spelling errors. Electronically signed by: Alberto Garibay M.D. 11/20/2019 4:26 PM
[2019-11-20 16:35] LABS: Albumin Globulin Ratio 0.9 (0.9-2); Alkaline Phosphatase 125 U/L (45-117); Bilirubin,Total 0.8 mg/dl (0.2-1); Globulin 3.8 gm/dl (2.5-4.0); Thyroid Stimulating Hormone 0.906 uIu/ml (0.300-4.500); Total Protein 7.3 gm/dl (6.4-8.2); Troponin I < 0.015 ng/ml (0-0.045)
[2019-11-20 17:24] LABS: Appearance Urine Clear (Clear); Bilirubin Urine Negative (Negative); Blood Urine Negative (Negative); Color Urine Yellow; Glucose Urine UA Negative (Negative); Ketones Urine Negative (Negative); Leukocyte Esterase Urine Negative (Negative); Nitrite Urine Negative (Negative); Protein Urine Negative (Negative); Specific Gravity Urine 1.013 (1.000-1.030); Urobilinogen Urine Negative (Negative)
--- NOTE | 2019-11-20 17:27 | Electrocardiogram Report ---
Test Reason : Blood Pressure : / mmHG Vent. Rate : 063 BPM Atrial Rate : 063 BPM P-R Int : 168 ms QRS Dur : 070 ms QT Int : 444 ms P-R-T Axes : 064 049 066 degrees QTc Int : 454 ms Sinus rhythm with intermittent atrial pacing Otherwise normal ECG Normal ECG When compared with ECG of 11-OCT-2019 05:31, No significant change was found Confirmed by Javier Cedeno ([id number]) on 11/20/2019 5:27:08 PM Referred By: Confirmed By:Javier Cedeno
[2019-11-20] MEDS ORDERED: PRAMIPEXOLE DIHYDROCHLO 0.5 MG TAB PO STA (18:13)
[2019-11-20] MEDS ORDERED: SODIUM CHLORIDE 0.9% 1000ML 1,000 ML IV STA (18:16)
--- NOTE | 2019-11-20 19:30 | History & Physical Report ---
Date of Service November 20, 2019 Assessment & Plan (1) Weakness: Likely multifactorial in the setting of recent R CEA See below for details Feeling better s/p ED interventions UA neg Flu neg EKG neg for acute TSH WNL Hb, trop WNL (2) Abnormal lung examination: CXR neg for PNA, however lung exam c/w PNA Continue cefdinir and steroids as outpt Slightly elevated WBC in the setting of steroid use Flu neg (3) ARF (acute renal failure): Likely related to decreased PO intake Monitor with IVF Last cr was 1.2 (4) Diarrhea: CTAP noted for possible colitis, however pt with diarrhea once a day or every other day Has been ongoing for several weeks Monitor (5) Restless legs: continue home meds (6) NSTEMI (non-ST elevated myocardial infarction): No cardiac stents placed (7) Diabetes mellitus type 2, uncontrolled: Holding PO meds until appetite and renal fxn improve SSI PRN A1c pending (8) Depression with anxiety: continue home meds (9) Combined systolic and diastolic heart failure: continue home meds No signs of fluid overload on CXR Monitor on gentle IVF (10) COPD, moderate: No signs of exacerbation (11) Hypomagnesemia: Replace and monitor (12) SSS (sick sinus syndrome): s/p pacer (13) PAD (peripheral artery disease): vascular stents in place Xarelto (14) HLD (hyperlipidemia): continue home meds (15) HTN (hypertension): continue home meds with hold parameters (16) DVT prophylaxis: Xarelto History of Present Illness Primary Care Provider: MANUEL Middleton 63 y/o F with multiple complaints. Pt had a R CEA at [facility] about 2 weeks ago. She has had progressive weakness, GOFF, and recurrent near syncope. She has had decreased PO intake due to low appetite. She has had diarrhea once a day or every other day s/p multiple medications on prior admission for constipation and this has continued. She had n/v today only. Pt denies fever, chest pain, abd pain, LE pain or swelling. Pt was seen by pulm PA yesterday and started on cefdinir and steroids "just in case" per pt. Allergies Allergy/AdvReac Type Severity Reaction Status Date / Time No Known Allergies Allergy Unverified 11/20/19 17:01 Home Medications Home Medications Medication Instructions Recorded Confirmed Type metformin 1,000 mg PO BID 05/13/18 11/20/19 History metoprolol tartrate 100 mg PO BID 05/13/18 11/20/19 History ipratropium 0.5 mg-albuterol 3 mg 3 ml INH Q4H PRN #90 ml 02/24/19 11/20/19 Rx (2.5 mg base)/3 mL nebulization soln lorazepam 0.5 mg tablet 0.5 mg PO BID PRN tab 02/24/19 11/20/19 History glimepiride 1 mg tablet 1 mg PO QAM #90 tab 02/27/19 11/20/19 Rx ranolazine 500 mg tablet,extended 500 mg PO BID #180 tab 03/27/19 11/20/19 Rx release,12 hr rosuvastatin 40 mg tablet 40 mg PO QAM #90 tab 06/04/19 11/20/19 Rx nitroglycerin 0.4 mg sublingual 0.4 mg SL Q5M PRN #1 tab 06/08/19 11/20/19 History tablet Over Night Pulse OX #1 ea 06/13/19 11/14/19 Rx diltiazem HCl 240 mg 240 mg PO QAM #90 cap 06/16/19 11/20/19 Rx capsule,extended release 24 hr pregabalin 75 mg capsule 75 mg PO TID #90 cap 06/19/19 11/20/19 Rx Januvia 100 mg PO QAM 07/18/19 11/20/19 History Spiriva Respimat 2 puffs INH QAM 07/18/19 11/20/19 History duloxetine 60 mg PO QAM 07/18/19 11/20/19 History magnesium oxide 400 mg PO QAM 07/18/19 11/20/19 History albuterol sulfate 90 mcg/actuation 2 puffs INH Q6H PRN #8 gm 10/08/19 11/20/19 Rx aerosol inhaler pramipexole 1 mg tablet 1 mg PO HS #90 tab 10/22/19 11/20/19 Rx rivaroxaban 20 mg tablet 20 mg PO QAM 10/22/19 11/20/19 History potassium chloride 10 mEq 10 meq PO QAM tab 11/14/19 11/20/19 History tablet,extended release cefdinir 300 mg capsule 300 mg PO BID #14 cap 11/19/19 11/20/19 Rx prednisone 10 mg tablet See Rx Instructions PO DAILY #20 11/19/19 11/20/19 Rx tab ticagrelor [Brilinta] 90 mg PO BID 11/20/19 11/20/19 History torsemide 30 mg PO QAM 11/20/19 11/20/19 History Past Med/Surg History Medical History ANNETTE (acute kidney injury) Altered mental status Anxiety Bulging discs CAD (coronary artery disease) Chronic back pain Combined systolic and diastolic heart failure COPD (chronic obstructive pulmonary disease) Degenerative disc disease Depression with anxiety Diabetic nephropathy DM II (diabetes mellitus, type II), controlled Dyspnea HLD (hyperlipidemia) HTN (hypertension) Hx of non-ST elevation myocardial infarction (NSTEMI) 05/2018 Hyperlipidemia Hypertension (Acute) Hypokalemia Hyponatremia Hypoxia Left ventricular diastolic dysfunction Medical marijuana use Metabolic encephalopathy Myocardial Infarction 05/[address] - [facility] Obesity Pacemaker 05/2015 - Sick sinus syndrome - Last checked 02/2019 ([facility]) - [employer] PAD (peripheral artery disease) Paroxysmal SVT (supraventricular tachycardia) Restless legs Rheumatoid arthritis Spinal stenosis Tachycardia UTI (urinary tract infection) Weakness Surgical History History of cardiac cath 05/2018 - [place] - NO STENTS/ANGIOPLASTY - COLLATERAL CIRCULATION - FOLLOWS W/ DR. ERWIN History of cataract surgery BILATERAL History of cholecystectomy History of intravascular stent placement Multiple stents in bilateral legs, left subclavian, left aortic mesenteric bypass, left carotid endarterectomy History of oral surgery History of tonsillectomy History of tooth extraction S/P cardiac pacemaker procedure Family History Mother , Heart Disease Ruptured Appendix No problems noted. Father , with Vascular and Colon Can No problems noted. Sister No problems noted. Grandfather (Maternal) Family history of diabetes mellitus Social History (Updated 11/20/19 @ 19:26 by Radhika Diehl DO) Preferred Language: Telugu Communication Ability: Effective Visual Impairment: No Limitations Commercial Account Executive Required: No Beliefs That Will Affect Care: None marital status: Current Living Situation: Family Current Living Situation Comment: Lives with sister Feels Safe at Home: Yes Smoking Status: Former smoker Tobacco Type: cigarettes ; Smoking End Date: 01/11/19 ; Second Hand Exposure: No ; Hx Alcohol Use: Yes (occasional, none recently) Alcohol type: hard liquor Hx Substance Use: Yes substance use type: does not use Substance Use Type Other:: "vaping THC" Last Used Substance: Hours (ago) Last Used Substance Other:: medical marijuana vaping, none recently Review of Systems Review of Systems: Pertinent positives and negatives reviewed in HPI--all others negative Physical Exam Constitutional: WD/WN, vitals as above Eyes: normal visual lemus by confrontation and + anicteric sclerae Neck: trachea midline R CEA incision site is closed, dry, healing well without redness or draining Respiratory: normal respiratory effort; no respiratory distress and no labored breathing Auscultation: + rales; no crackles and no wheezes Cardiovascular: Rate/Rhythm: regular rate and regular rhythm Gastrointestinal (Abdomen): Inspection/Auscultation: abdomen not distended Percussion/Palpation: abdomen soft; abdomen nontender Musculoskeletal: Head/Neck/Chest: normocephalic and head atraumatic negative for edema, peripheral pulses intact Skin: no rashes, warm and dry Neurologic: awake; not confused Speech / Cognition: normal speech Psychiatric: A+Ox3, euthymic affect Results & Data Vital Signs (Past 12 Hours) Vital Signs Temp Pulse Pulse Resp BP BP Pulse Ox 11/20/19 17:40 72 17 11/20/19 17:30 69 22 107/61 11/20/19 17:20 61 18 11/20/19 17:10 95 H 18 11/20/19 17:00 70 14 11/20/19 16:50 71 18 11/20/19 16:40 73 24 11/20/19 16:31 69 17 11/20/19 16:30 66 17 143/74 H 11/20/19 16:20 64 20 11/20/19 16:11 67 17 11/20/19 15:50 66 31 H 11/20/19 15:47 64 16 147/92 H 96 11/20/19 15:30 64 20 147/102 H 91 11/20/19 15:17 36.5 C 91 H 26 H 157/76 H 91 Diagnostic Findings CXR: neg for acute CTAP: 1. Nonspecific mild infiltrative changes anterior to the bladder as well as in the right pericecal region. 2. This appearance is similar to but less prominent as compared to the prior study of 10/11/2019. 3. A nonspecific inflammatory process of the cecum and/or bladder must be considered. Cystitis is considered statistically most likely. 4. Moderate edematous changes the right rectus musculature which potentially i ndicate a secondary intramuscular hematoma and/or edematous process. 5. No evidence for abscess collection or obstruction. ECG Rhythm: normal sinus Code Status & VTE Plan Code Status DNR/DNI, sister is present and agrees VTE Prophylaxis Plan VTE Prophylaxis will be ordered: Yes PG Care Time/CCT Total # of Minutes Spent Total Time Spent with Patient: Total time spent is greater than 50% in coordination of care (as documented) at patient's floor/unit and/or counseling patient: Coding Level of Care Code 82806 Initial Inpt Care Lvl 3 Diagnoses Weakness R53.1 Abnormal lung examination ARF (acute renal failure) N17.9 Diarrhea R19.7 Restless legs G25.81 NSTEMI (non-ST elevated myocardial infarction) I21.4 Diabetes mellitus type 2, uncontrolled E11.65 Glycemic state: with hyperglycemia Depression with anxiety F41.8 Combined systolic and diastolic heart failure I50.42 Heart failure chronicity: chronic COPD, moderate J44.9 Hypomagnesemia E83.42 SSS (sick sinus syndrome) I49.5 PAD (peripheral artery disease) I73.9 HLD (hyperlipidemia) E78.2 Hyperlipidemia type: mixed hyperlipidemia HTN (hypertension) I10 Hypertension type: essential hypertension DVT prophylaxis Z29.9 (1) Diabetes mellitus type 2, uncontrolled Glycemic state: with hyperglycemia Qualified Code(s): E11.65 - Type 2 diabetes mellitus with hyperglycemia (2) Combined systolic and diastolic heart failure Heart failure chronicity: chronic Qualified Code(s): I50.42 - Chronic combined systolic (congestive) and diastolic (congestive) heart failure (3) HLD (hyperlipidemia) Hyperlipidemia type: mixed hyperlipidemia Qualified Code(s): E78.2 - Mixed hyperlipidemia (4) HTN (hypertension) Hypertension type: essential hypertension Qualified Code(s): I10 - Essential (primary) hypertension
[2019-11-20] MEDS ORDERED: NITROGLYCERIN SL 0.4 MG/TAB TAB SL PRN (20:39)
[2019-11-20] MEDS ORDERED: ACETAMINOPHEN 325 MG TAB PO PRN (20:39)
[2019-11-20] MEDS ORDERED: DEXTROSE 50% 50 ML SYRINGE IV PRN (20:39)
[2019-11-20] MEDS ORDERED: ALBUTEROL HFA 8 GM INHALER INH PRN (20:39)
[2019-11-20] MEDS ORDERED: LORazepam 0.5 MG TAB PO PRN (20:39)
[2019-11-20] MEDS ORDERED: ALBUT/IPRATROP 3MG/0.5MG NEB 3 ML VIAL INH PRN (20:39)
[2019-11-20] MEDS ORDERED: CARBOHYDRATES FOR HYPOGLYCEMIA PO PRN (20:39)
[2019-11-20] MEDS ORDERED: GLUCOSE 10 TABS/TUBE PO PRN (20:39)
[2019-11-20] MEDS ORDERED: GLUCOSE 40% GEL 15 GM TUBE PO PRN (20:39)
[2019-11-20] MEDS ORDERED: MAGNESIUM HYDROXIDE SUSP 30 ML UDC PO PRN (20:39)
[2019-11-20] MEDS ORDERED: ONDANSETRON INJ 2 MG/ML 2 ML VIAL IV PRN (20:39)
[2019-11-20] MEDS ORDERED: [UNRECOGNIZED DRUG - REMARK] SCH (20:39)
[2019-11-20] MEDS ORDERED: GLUCAGON FOR INJ 1 MG VIAL SQ PRN (20:39)
[2019-11-20] MEDS: SODIUM CHLORIDE 0.9% 1000ML 1,000 ML IV SCH (21:30)
[2019-11-20] MEDS: MAGNESIUM SULFATE / D5W 1 GM/100 ML BAG IV SCH ×3 (21:30→23:45)
[2019-11-20] MEDS: TICAGRELOR 90 MG TAB PO SCH (21:35)
[2019-11-20] MEDS: CEFDINIR 300 MG CAP PO SCH (21:36)
[2019-11-20] MEDS: RANOLAZINE 500 MG ER TAB PO SCH (21:36)
[2019-11-20] MEDS: METOPROLOL TARTRATE 100 MG TAB PO SCH (21:36)
[2019-11-20] MEDS: dilTIAZem HCL 240 MG CAPCR PO SCH (21:38)
[2019-11-20] MEDS: PREGABALIN 75 MG CAP PO SCH (21:43)
[2019-11-20] MEDS ORDERED: ZOLPIDEM TARTRATE 5 MG TAB PO PRN (21:58)
[2019-11-20] MEDS: INSULIN ASPART 100 UNITS/ML 3 ML PEN SC SCH (22:23)
[2019-11-21 05:46] LABS: Basophils # (auto) 0.01 K/uL (0-0.2); Basophils % (auto) 0.1 %; Eosinophils # (auto) 0.01 K/uL (0-0.5); Eosinophils % (auto) 0.1 %; Hematocrit (blood only) 33.5 % (37-47); Hemoglobin 10.8 g/dL (12.0-16.0); Immature Granulocytes # (auto) 0.03 K/uL (0.00-0.02); Immature Granulocytes % (auto) 0.3 %; Lymphocytes # (auto) 1.89 K/uL (1.2-3.4); Mean Corpuscular Hemoglobin 27.6 pg (25-34); Mean Corpuscular Hgb Conc 32.2 g/dL (32-36); Mean Corpuscular Volume 85.7 fL (80-100); Mean Platelet Volume 12.5 fL (7.4-10.4); Monocytes # (auto) 1.04 K/uL (0.11-0.59); Monocytes % (auto) 8.8 %; Neutrophils # (auto) 8.82 K/uL (1.4-6.5); Neutrophils % (auto) 74.7 %; Platelet Count 199 K/uL (130-400); RDW Coefficient of Variation 17.4 % (11.5-14.5); RDW Standard Deviation 54.1 fL (36.4-46.3); Red Blood Count 3.91 M/uL (4.2-5.4)
[2019-11-21 06:24] LABS: BUN Creatinine Ratio 11.6 (10-20); Calcium 8.6 mg/dl (8.5-10.1); Est GFR (African American) 39.4; Magnesium 2.5 mg/dl (1.8-2.4); Potassium 3.5 mmol/L (3.5-5.1)
[2019-11-21 06:35] LABS: Estimated Average Glucose 180 mg/dl; Hemoglobin A1C 7.9 % (4.5-5.6)
[2019-11-21] MEDS: SODIUM CHLORIDE 0.9% 1000ML 1,000 ML IV SCH ×2 (07:24→19:45)
[2019-11-21] MEDS: RANOLAZINE 500 MG ER TAB PO SCH ×2 (08:44→21:20)
[2019-11-21] MEDS: CEFDINIR 300 MG CAP PO SCH ×2 (08:45→21:21)
[2019-11-21] MEDS: MAGNESIUM OXIDE 400 MG TAB PO SCH (08:45)
[2019-11-21] MEDS: dilTIAZem HCL 240 MG CAPCR PO SCH (08:45)
[2019-11-21] MEDS: ROSUVASTATIN CALCIUM 20 MG TAB PO SCH (08:45)
[2019-11-21] MEDS: RIVAROXABAN 20 MG TAB PO SCH (08:45)
[2019-11-21] MEDS: TICAGRELOR 90 MG TAB PO SCH ×2 (08:45→21:21)
[2019-11-21] MEDS: POTASSIUM CHLORIDE 10 MEQ TABCR PO SCH (08:45)
[2019-11-21] MEDS: METOPROLOL TARTRATE 100 MG TAB PO SCH ×2 (08:46→21:21)
[2019-11-21] MEDS: DULOXETINE HCL 60 MG CAP PO SCH (08:46)
[2019-11-21] MEDS: UMECLIDINIUM BROMIDE 62.5MCG/BLISTER 7 PUFFS/INHALER INH SCH (08:46)
[2019-11-21] MEDS: PREGABALIN 75 MG CAP PO SCH ×3 (08:48→21:43)
[2019-11-21] MEDS ORDERED: TORSEMIDE 10 MG TAB PO SCH (09:00)
[2019-11-21] MEDS ORDERED: predniSONE 20 MG TAB PO SCH (09:00)
[2019-11-21] MEDS: INSULIN ASPART 100 UNITS/ML 3 ML PEN SC SCH ×4 (09:50→22:14)
[2019-11-21] MEDS: BENZONATATE 100 MG CAPSULE PO SCH ×2 (15:24→21:19)
--- NOTE | 2019-11-21 16:29 | Gastrointestinal Consultation ---
Date of Consultation November 21, 2019 Assessment & Plan (1) Colitis: ischemic vs. infectious, less likely IBD. Recs: 1. obtain stool studies including cdiff, culture, and fecal calprotectin 2.supportive care, trend H/H 3. consider vascular surgery evaluation for possible ischemic colitis if stool studies negative 4.will need colonoscopy in 4-6 weeks (or sooner), likely as an outpatient. She follows with Dr. Monson who did her last colonoscopy in june with multiple polyps removed. thank you for allowing me to participate in the care of this patient. (2) Diarrhea: History of Present Illness Attending Physician: Alana Ochoa MD 63 yo female here for evaluation. GI consulted for diarrhea and possible colitis. She has a history of PVD with common iliac stents placed, recently just had a carotid endarterectomy few weeks ago. Notes liquid stool daily for the last month, all liquid. Denies blood per rectum, significant abdominal pains. Notes decreased appetite and po intake as well. She notes that she had GOFF and near syncope which prompted her to get hospitalized this time. Recently put on anitbiotics by pulmonary few days ago. Labs reviewed, notable for anemia. CT 10/11/2019 showed: 1. Focal moderate thickening and pericolonic fat stranding surrounding the cecum. These findings favor a nonspecific colitis and could be due to infectious, inflammatory, or ischemic process. Abnormal appearance of the gas within the cecum. This is likely intraluminal. Pneumatosis could also have a similar appearance but is considered less likely. 2. The appendix is not clearly identified. Acute appendicitis cannot be excluded but is also considered less likely given the pattern of inflammatory change. 3. Common origin of the celiac and superior mesenteric arteries with focal moderate narrowing of approximately 50% at the takeoff of the superior mesenteric artery. 4. Bilateral common iliac artery stents are patent. Allergies Allergy/AdvReac Type Severity Reaction Status Date / Time No Known Allergies Allergy Unverified 11/20/19 17:01 Home Medications Home Medications Medication Instructions Recorded Confirmed Type metformin 1,000 mg PO BID 05/13/18 11/20/19 History metoprolol tartrate 100 mg PO BID 05/13/18 11/20/19 History ipratropium 0.5 mg-albuterol 3 mg 3 ml INH Q4H PRN #90 ml 02/24/19 11/20/19 Rx (2.5 mg base)/3 mL nebulization soln lorazepam 0.5 mg tablet 0.5 mg PO BID PRN tab 02/24/19 11/20/19 History glimepiride 1 mg tablet 1 mg PO QAM #90 tab 02/27/19 11/20/19 Rx ranolazine 500 mg tablet,extended 500 mg PO BID #180 tab 03/27/19 11/20/19 Rx release,12 hr rosuvastatin 40 mg tablet 40 mg PO QAM #90 tab 06/04/19 11/20/19 Rx nitroglycerin 0.4 mg sublingual 0.4 mg SL Q5M PRN #1 tab 06/08/19 11/20/19 History tablet Over Night Pulse OX #1 ea 06/13/19 11/14/19 Rx diltiazem HCl 240 mg 240 mg PO QAM #90 cap 06/16/19 11/20/19 Rx capsule,extended release 24 hr pregabalin 75 mg capsule 75 mg PO TID #90 cap 06/19/19 11/20/19 Rx Januvia 100 mg PO QAM 07/18/19 11/20/19 History Spiriva Respimat 2 puffs INH QAM 07/18/19 11/20/19 History duloxetine 60 mg PO QAM 07/18/19 11/20/19 History magnesium oxide 400 mg PO QAM 07/18/19 11/20/19 History albuterol sulfate 90 mcg/actuation 2 puffs INH Q6H PRN #8 gm 10/08/19 11/20/19 Rx aerosol inhaler pramipexole 1 mg tablet 1 mg PO HS #90 tab 10/22/19 11/20/19 Rx rivaroxaban 20 mg tablet 20 mg PO QAM 10/22/19 11/20/19 History potassium chloride 10 mEq 10 meq PO QAM tab 11/14/19 11/20/19 History tablet,extended release cefdinir 300 mg capsule 300 mg PO BID #14 cap 11/19/19 11/20/19 Rx prednisone 10 mg tablet See Rx Instructions PO DAILY #20 11/19/19 11/20/19 Rx tab ticagrelor [Brilinta] 90 mg PO BID 11/20/19 11/20/19 History torsemide 30 mg PO QAM 11/20/19 11/20/19 History Patient History Medical History ANNETTE (acute kidney injury) Altered mental status Anxiety Bulging discs CAD (coronary artery disease) Chronic back pain Combined systolic and diastolic heart failure COPD (chronic obstructive pulmonary disease) Degenerative disc disease Depression with anxiety Diabetic nephropathy DM II (diabetes mellitus, type II), controlled Dyspnea HLD (hyperlipidemia) HTN (hypertension) Hx of non-ST elevation myocardial infarction (NSTEMI) 05/2018 Hyperlipidemia Hypertension (Acute) Hypokalemia Hyponatremia Hypoxia Left ventricular diastolic dysfunction Medical marijuana use Metabolic encephalopathy Myocardial Infarction 05/2018 - [facility] Obesity Pacemaker 05/2015 - Sick sinus syndrome - Last checked 02/2019 ([facility]) - [employer]tr[employer] PAD (peripheral artery disease) Paroxysmal SVT (supraventricular tachycardia) Restless legs Rheumatoid arthritis Spinal stenosis Tachycardia UTI (urinary tract infection) Weakness Surgical History History of cardiac cath 05/2018 - [place] - NO STENTS/ANGIOPLASTY - COLLATERAL CIRCULATION - FOLLOWS W/ DR. ERWIN History of cataract surgery BILATERAL History of cholecystectomy History of intravascular stent placement Multiple stents in bilateral legs, left subclavian, left aortic mesenteric bypass, left carotid endarterectomy History of oral surgery History of tonsillectomy History of tooth extraction S/P cardiac pacemaker procedure Family History Mother , Heart Disease Ruptured Appendix No problems noted. Father , with Vascular and Colon Can No problems noted. Sister No problems noted. Grandfather (Maternal) Family history of diabetes mellitus Social History Preferred Language: Luxembourgish Communication Ability: Effective Visual Impairment: No Limitations Splitter Tender Required: No Beliefs That Will Affect Care: None marital status: Current Living Situation: Family Current Living Situation Comment: Lives with sister Feels Safe at Home: Yes Smoking Status: Former smoker Tobacco Type: cigarettes ; Second Hand Exposure: No ; Hx Alcohol Use: No Hx Substance Use: Yes substance use type: marijuana Substance Use Type Other:: "vaping THC" Last Used Substance: Hours (ago) Review of Systems Review of Systems: formerly [facility], 1928–1983 ukwq Constitutional: no fever and no chills Respiratory: no cough, no dyspnea and no dyspnea on exertion Cardiovascular: no chest pain and no dyspnea Gastrointestinal: as per Subjective / HPI Psychiatric: no depression and no anxiety Physical Exam Constitutional: WD/WN, vitals as above Respiratory: normal respiratory effort, lungs clear to auscultation Cardiovascular: RRR, no murmur, no edema Gastrointestinal (Abdomen): normal bowel sounds, soft, nontender, no hepatosplenomegaly Musculoskeletal: no lower extremity edema Psychiatric: A+Ox3, euthymic affect Results & Data ([facility]) Vital Signs (Past 12 Hours) Vital Signs Temp Pulse Resp BP Pulse Ox 11/21/19 15:33 36.6 C 75 20 111/71 94 11/21/19 11:55 36.6 C 77 20 147/70 H 93 11/21/19 07:52 36.6 C 78 17 136/66 92 PG Care Time/CCT Total # of Minutes Spent Total Time Spent with Patient: Total time spent is greater than 50% in coordination of care (as documented) at patient's floor/unit and/or counseling patient: Coding Level of Care Code 99181 Initial Inpt Care Lvl 3 Diagnoses Colitis K52.9 Diarrhea R19.7
--- NOTE | 2019-11-21 17:28 | Hospitalist Progress Note ---
Date of Service November 21, 2019 Assessment & Plan (1) ARF (acute renal failure): Likely related to decreased PO intake and chronic diarrhea for the last month or so Baseline creatinine 1.2 but creatinine was up to 2.05 on admission Creatinine now improving down to 1.59 with IV fluids -Hold torsemide -Continue IV fluids with sodium chloride at 125 mL's per hour -Follow urine output, BMP in the morning (2) Colitis: CT scan of abdomen/pelvis with inflammation around the cecum and/or bladder. With similar findings on previous CT scan when she was here with right lower quadrant pain and hypotension in 10/2019 Has a history of mesenteric stenosis Could be ischemic colitis versus infectious -Seems to be milder at this point -Had colonoscopy 4 months ago which only showed 1 hyperplastic polyp but this symptom has occurred since that time -Consult GI appreciated-we will order stool culture, C. difficile, stool calprotectin and recommends colonoscopy in 4-6 weeks or possibly sooner -Will need outpatient follow-up -Okay to continue regular diet (3) Weakness: Likely multifactorial in the setting of recent R CEA with poor p.o. intake, renal failure, dehydration. Orthostatic blood pressures normal UA neg Flu neg EKG neg for acute TSH WNL Hb, trop WNL -Improving (4) Diarrhea: CTAP noted for possible colitis, however pt with diarrhea once a day or every other day Has been ongoing for several weeks to over a month Monitor -Checking stool studies -Will need colonoscopy in 4 to 6 weeks (5) Restless legs: continue home pramipexole 1 mg p.o. at bedtime (6) NSTEMI (non-ST elevated myocardial infarction): Patient follows with Dr. Mojica for pacemaker and CAD, pacemaker placed in 2016, several ME over past few years. -Continue Brilinta, Xarelto - Continue Ranexa (7) Diabetes mellitus type 2, uncontrolled: Holding PO meds from home-metformin, Januvia, glimepiride With hyperglycemia here secondary to prednisone use -Tighten down SSI AC at bedtime A1c improved from previous at 7.9% -Plan to restart home meds upon discharge if creatinine less than 1.5 (8) Depression with anxiety: No present symptoms. - Continue Cymbalta 60 mg daily, Ativan 0.5 mg twice daily prn (9) Combined systolic and diastolic heart failure: Last echo on 05/10/2019 with EF of 55=60%. Was hypovolemic on admission due to dehydration No signs of fluid overload on CXR Monitor on gentle IVF -Continue metoprolol tartrate 100 mg p.o. twice daily -We will hold torsemide while being hydrated with fluids for acute kidney injury (10) COPD, moderate: Follows with pulmonology as an outpatient, PFT revealed moderate obstruction without significant improvement after bronchodilator. With recently worsening shortness of breath which may be a side effect of Brilinta versus COPD exacerbation Was recently started on prednisone and cefdinir by her outpatient pulmonology provider -Continue prednisone but decrease to 20 mg and will taper off quickly-caution with steroid use in the setting of suspected ischemic colitis-increases risk for perforation -Complete 5-day course of cefdinir-today day #3 Chest x-ray without pneumonia -Begin antitussives with Robitussin DM and Tessalon Perles as needed - Continue Spiriva, DuoNebs prn - Continue 2 L O2 HS -Advised patient to discuss possibility that Brilinta is causing her increased shortness of breath and to see about switching back to Plavix (11) Hypomagnesemia: Replaced and monitor (12) SSS (sick sinus syndrome): s/p pacer (13) PAD (peripheral artery disease): Previously followed by Dr. Sheffield in [place], s/p left carotid endarterectomy and restented, multiple stents in both legs. Also with recent right CEA Follows with [place] vascular once yearly. - Continue Brilinta - Continue rosuvastatin (14) HLD (hyperlipidemia): continue home med (15) HTN (hypertension): Blood pressures acceptable Orthostatics negative -Continue diltiazem 240 mg once daily -Continue metoprolol tartrate 100 mg p.o. twice daily -Holding torsemide (16) SMA stenosis: Noted 50% stenosis on previous imaging Follows with vascular surgery (17) Status cardiac pacemaker: Noted (18) Dyspnea: As above, could be secondary to Brilinta versus COPD exacerbation -Treating with steroids as above, bronchodilators If not improving with such, she will discuss with her vascular surgeon about switching Brilinta back to Plavix (19) History of carotid endarterectomy: Of the right-sided neck, wound looks great -Continue Brilinta, Xarelto, statin -Has follow-up planned with vascular surgeon in the near future (20) CKD (chronic kidney disease) stage 3, GFR 30-59 ml/min: Baseline Cr ~1.3 to 1.5, eGFR ~45. With acute kidney injury as above -Avoid nephrotoxins -Renally dose medications when appropriate (21) DVT prophylaxis: Xarelto Disposition-remain overnight to collect stool samples, continue to hydrate and follow renal function Possible discharge to home tomorrow Admission and Anticipated Discharge Date Admission Date: November 20, 2019 Anticipated date of discharge: 11/22/19 Subjective Patient reports feeling much better today. She is eating and drinking more. She has been having loose stools every day for approximately a month and a half. She continues to have right lower quadrant pain that is never really gone away since her previous admission here. She reports an annoying mostly dry cough and thinks that it is a little bit better since starting on steroids and antibiotics 2 days ago. Her shortness of breath really has gotten much worse since her carotid endarterectomy. She was placed on Brilinta at that time. She denies chest pain. Denies fevers. Is requesting something for her cough. Telemetry with normal sinus rhythm and PACs with rates in the 70s to 90s Review of Systems Review of Systems: All systems reviewed & are unremarkable except as noted in HPI & below (No blood in the stool, no melena, no vomiting or hematemesis) Physical Exam Constitutional: + ill appearing (Chronically ill-appearing) and + overweight; no acute distress Eyes: + anicteric sclerae ENMT: external ear and nose normal, oropharynx normal Neck: trachea midline, no thyromegaly + abnormal visual inspection (Right side with surgical wound well-healed) Respiratory: Auscultation: + diminished lung sounds (Throughout); no crackles, no rhonchi and no wheezes Cardiovascular: RRR, no murmur, no edema Chest (Breasts): Chest: normal inspection of chest Gastrointestinal (Abdomen): Inspection/Auscultation: abdomen normal to inspection and normal bowel sounds; abdomen not distended Percussion/Palpation: + abdomen tender (In right lower quadrant without guarding or rebound tenderness) and abdomen soft; no guarding Musculoskeletal: Extremities: extremities normal to inspection; no cyanosis and no clubbing Skin: no rashes, warm and dry Neurologic: moves all extremities and awake; no focal motor deficits Psychiatric: A+Ox3, euthymic affect Lymphatic: no lymphedema Results & Data ([facility]) Vital Signs (Past 12 Hours) Vital Signs Temp Pulse Resp BP Pulse Ox 11/21/19 15:33 36.6 C 75 20 111/71 94 11/21/19 11:55 36.6 C 77 20 147/70 H 93 11/21/19 07:52 36.6 C 78 17 136/66 92 Laboratory Results 11/21/19 11/21/19 11/21/19 Range/Units 20:01 16:27 11:17 WBC (4.8-10.8) K/uL RBC (4.2-5.4) M/uL Hgb (12.0-16.0) g/dL Hct (37-47) % MCV (80-100) fL MCH (25-34) pg MCHC (32-36) g/dL RDW Std Deviation (36.4-46.3) fL RDW Coeff of Tosin (11.5-14.5) % Plt Count (130-400) K/uL MPV (7.4-10.4) fL Immature Gran % (Auto) % Neut % (Auto) % Lymph % (Auto) % [place] % (Auto) % Eos % (Auto) % Baso % (Auto) % Immature Gran # (Auto) (0.00-0.02) K/uL Neut # (Auto) (1.4-6.5) K/uL Lymph # (Auto) (1.2-3.4) K/uL [place] # (Auto) (0.11-0.59) K/uL Eos # (Auto) (0-0.5) K/uL Baso # (Auto) (0-0.2) K/uL Sodium (136-145) mmol/L Potassium (3.5-5.1) mmol/L Chloride (98-107) mmol/L Carbon Dioxide (21-32) mmol/L Anion Gap (3-11) BUN (7-18) mg/dl Creatinine (0.6-1.2) mg/dl Est Cr Clr Drug Dosing ml/min Est GFR ( Amer) Est GFR (Non-Af Amer) BUN/Creatinine Ratio (10-20) Glucose (70-99) mg/dl POC Glucose 325 H* 317 H* 220 H (70-99) mg/dl Estimat Average Glucose mg/dl Hemoglobin A1c (4.5-5.6) % Calcium (8.5-10.1) mg/dl Magnesium (1.8-2.4) mg/dl 11/21/19 11/21/19 11/21/19 Range/Units 07:10 05:29 05:29 WBC (4.8-10.8) K/uL RBC (4.2-5.4) M/uL Hgb (12.0-16.0) g/dL Hct (37-47) % MCV (80-100) fL MCH (25-34) pg MCHC (32-36) g/dL RDW Std Deviation (36.4-46.3) fL RDW Coeff of Tosin (11.5-14.5) % Plt Count (130-400) K/uL MPV (7.4-10.4) fL Immature Gran % (Auto) % Neut % (Auto) % Lymph % (Auto) % [place] % (Auto) % Eos % (Auto) % Baso % (Auto) % Immature Gran # (Auto) (0.00-0.02) K/uL Neut # (Auto) (1.4-6.5) K/uL Lymph # (Auto) (1.2-3.4) K/uL [place] # (Auto) (0.11-0.59) K/uL Eos # (Auto) (0-0.5) K/uL Baso # (Auto) (0-0.2) K/uL Sodium 135 L (136-145) mmol/L Potassium 3.5 D (3.5-5.1) mmol/L Chloride 102 (98-107) mmol/L Carbon Dioxide 26 (21-32) mmol/L Anion Gap 7.0 (3-11) BUN 18 (7-18) mg/dl Creatinine 1.59 H D (0.6-1.2) mg/dl Est Cr Clr Drug Dosing 43.0 ml/min Est GFR ( Amer) 39.4 Est GFR (Non-Af Amer) 34.0 BUN/Creatinine Ratio 11.6 (10-20) Glucose 145 H (70-99) mg/dl POC Glucose 151 H (70-99) mg/dl Estimat Average Glucose 180 mg/dl Hemoglobin A1c 7.9 H (4.5-5.6) % Calcium 8.6 (8.5-10.1) mg/dl Magnesium 2.5 H (1.8-2.4) mg/dl 11/21/19 11/20/19 Range/Units 05:29 20:58 WBC 11.80 H (4.8-10.8) K/uL RBC 3.91 L (4.2-5.4) M/uL Hgb 10.8 L (12.0-16.0) g/dL Hct 33.5 L (37-47) % MCV 85.7 (80-100) fL MCH 27.6 (25-34) pg MCHC 32.2 (32-36) g/dL RDW Std Deviation 54.1 H (36.4-46.3) fL RDW Coeff of Tosin 17.4 H (11.5-14.5) % Plt Count 199 (130-400) K/uL MPV 12.5 H (7.4-10.4) fL Immature Gran % (Auto) 0.3 % Neut % (Auto) 74.7 % Lymph % (Auto) 16.0 % [place] % (Auto) 8.8 % Eos % (Auto) 0.1 % Baso % (Auto) 0.1 % Immature Gran # (Auto) 0.03 H (0.00-0.02) K/uL Neut # (Auto) 8.82 H (1.4-6.5) K/uL Lymph # (Auto) 1.89 (1.2-3.4) K/uL [place] # (Auto) 1.04 H (0.11-0.59) K/uL Eos # (Auto) 0.01 (0-0.5) K/uL Baso # (Auto) 0.01 (0-0.2) K/uL Sodium (136-145) mmol/L Potassium (3.5-5.1) mmol/L Chloride (98-107) mmol/L Carbon Dioxide (21-32) mmol/L Anion Gap (3-11) BUN (7-18) mg/dl Creatinine (0.6-1.2) mg/dl Est Cr Clr Drug Dosing ml/min Est GFR ( Amer) Est GFR (Non-Af Amer) BUN/Creatinine Ratio (10-20) Glucose (70-99) mg/dl POC Glucose 229 H (70-99) mg/dl Estimat Average Glucose mg/dl Hemoglobin A1c (4.5-5.6) % Calcium (8.5-10.1) mg/dl Magnesium (1.8-2.4) mg/dl PG Care Time/CCT Total # of Minutes Spent Total Time Spent with Patient: Total time spent is greater than 50% in coordination of care (as documented) at patient's floor/unit and/or counseling patient: Coding Level of Care Code 28288 Subseq Hosp Care Lvl 3 Diagnoses ARF (acute renal failure) N17.9 Colitis K52.9 Weakness R53.1 Diarrhea R19.7 Restless legs G25.81 NSTEMI (non-ST elevated myocardial infarction) I21.4 Diabetes mellitus type 2, uncontrolled E11.65 Glycemic state: with hyperglycemia Depression with anxiety F41.8 Combined systolic and diastolic heart failure I50.42 Heart failure chronicity: chronic COPD, moderate J44.9 Hypomagnesemia E83.42 SSS (sick sinus syndrome) I49.5 PAD (peripheral artery disease) I73.9 HLD (hyperlipidemia) E78.2 Hyperlipidemia type: mixed hyperlipidemia HTN (hypertension) I10 Hypertension type: essential hypertension SMA stenosis I77.1 Status cardiac pacemaker Z95.0 Dyspnea R06.00 History of carotid endarterectomy Z98.890 CKD (chronic kidney disease) stage 3, GFR 30-59 ml/min N18.3 DVT prophylaxis Z29.9 (1) HLD (hyperlipidemia) Hyperlipidemia type: mixed hyperlipidemia Qualified Code(s): E78.2 - Mixed hyperlipidemia (2) Diabetes mellitus type 2, uncontrolled Glycemic state: with hyperglycemia Qualified Code(s): E11.65 - Type 2 diabetes mellitus with hyperglycemia (3) Combined systolic and diastolic heart failure Heart failure chronicity: chronic Qualified Code(s): I50.42 - Chronic combined systolic (congestive) and diastolic (congestive) heart failure (4) HTN (hypertension) Hypertension type: essential hypertension Qualified Code(s): I10 - Essential (primary) hypertension
[2019-11-21] MEDS ORDERED: GUAIFENESIN/DEXTROM SYRUP 200MG/20MG 10ML UDC PO PRN (20:06)
[2019-11-21] MEDS ORDERED: OXYCODONE HCL IR 5 MG TAB (IMMEDIATE RELEASE) PO PRN (20:18)
[2019-11-21] MEDS ORDERED: PRAMIPEXOLE DIHYDROCHLO 0.5 MG TAB PO SCH (21:00)
[2019-11-21] MEDS ORDERED: INSULIN GLARGINE SOLOSTAR 100 UNITS/ML 3 ML PEN SC SCH (21:00)
[2019-11-22 07:27] LABS: Basophils # (auto) 0.01 K/uL (0-0.2); Basophils % (auto) 0.1 %; Hematocrit (blood only) 35.1 % (37-47); Hemoglobin 11.4 g/dL (12.0-16.0); Immature Granulocytes # (auto) 0.03 K/uL (0.00-0.02); Immature Granulocytes % (auto) 0.3 %; Lymphocytes # (auto) 1.68 K/uL (1.2-3.4); Lymphocytes % (auto) 15.4 %; Mean Corpuscular Hemoglobin 27.7 pg (25-34); Mean Corpuscular Hgb Conc 32.5 g/dL (32-36); Mean Corpuscular Volume 85.2 fL (80-100); Mean Platelet Volume 12.5 fL (7.4-10.4); Monocytes # (auto) 1.12 K/uL (0.11-0.59); Monocytes % (auto) 10.3 %; Neutrophils # (auto) 8.07 K/uL (1.4-6.5); Neutrophils % (auto) 73.9 %; Platelet Count 200 K/uL (130-400); RDW Coefficient of Variation 17.5 % (11.5-14.5); RDW Standard Deviation 54.1 fL (36.4-46.3); Red Blood Count 4.12 M/uL (4.2-5.4); White Blood Count 10.91 K/uL (4.8-10.8)
[2019-11-22 08:00] LABS: BUN Creatinine Ratio 13.2 (10-20); Calcium 8.6 mg/dl (8.5-10.1); Creatinine Clr Calc Pharmacy 41.1 ml/min; Est GFR (African American) 36.8; Est GFR (Non-African American) 31.8; Magnesium 2.2 mg/dl (1.8-2.4); Potassium 4.2 mmol/L (3.5-5.1)
[2019-11-22] MEDS: SODIUM CHLORIDE 0.9% 1000ML 1,000 ML IV SCH (08:17)
[2019-11-22] MEDS: CEFDINIR 300 MG CAP PO SCH (08:18)
[2019-11-22] MEDS: PREGABALIN 75 MG CAP PO SCH (08:18)
[2019-11-22] MEDS: DULOXETINE HCL 60 MG CAP PO SCH (08:18)
[2019-11-22] MEDS: POTASSIUM CHLORIDE 10 MEQ TABCR PO SCH (08:18)
[2019-11-22] MEDS: RANOLAZINE 500 MG ER TAB PO SCH (08:19)
[2019-11-22] MEDS: METOPROLOL TARTRATE 100 MG TAB PO SCH (08:19)
[2019-11-22] MEDS: dilTIAZem HCL 240 MG CAPCR PO SCH (08:19)
[2019-11-22] MEDS: TICAGRELOR 90 MG TAB PO SCH (08:20)
[2019-11-22] MEDS: RIVAROXABAN 20 MG TAB PO SCH (08:20)
[2019-11-22] MEDS: MAGNESIUM OXIDE 400 MG TAB PO SCH (08:20)
[2019-11-22] MEDS: ROSUVASTATIN CALCIUM 20 MG TAB PO SCH (08:20)
[2019-11-22] MEDS: BENZONATATE 100 MG CAPSULE PO SCH (08:21)
[2019-11-22] MEDS: UMECLIDINIUM BROMIDE 62.5MCG/BLISTER 7 PUFFS/INHALER INH SCH (08:21)
[2019-11-22] MEDS: INSULIN ASPART 100 UNITS/ML 3 ML PEN SC SCH ×2 (08:23→12:12)
[2019-11-22] MEDS ORDERED: predniSONE 20 MG TAB PO SCH (09:00)
--- NOTE | 2019-11-22 11:46 | Discharge Summary ---
Date of Service November 22, 2019 Admission HPI Per Admitting Provider 63 y/o F with multiple complaints. Pt had a R CEA at [facility] about 2 weeks ago. She has had progressive weakness, GOFF, and recurrent near syncope. She has had decreased PO intake due to low appetite. She has had diarrhea once a day or every other day s/p multiple medications on prior admission for constipation and this has continued. She had n/v today only. Pt denies fever, chest pain, abd pain, LE pain or swelling. Pt was seen by puladwoa IVERSON yesterday and started on cefdinir and steroids "just in case" per pt. Principal Diagnosis ANNETTE, rectus sheath hematoma, Abdominal pain Discharge Exam Constitutional + ill appearing (Chronically ill-appearing) and + overweight; no acute distress Eyes + anicteric sclerae ENMT external ear and nose normal, oropharynx normal Neck trachea midline, no thyromegaly + abnormal visual inspection (Right side with surgical wound well-healed) Respiratory Auscultation: + diminished lung sounds (Throughout); no crackles, no rhonchi and no wheezes Cardiovascular RRR, no murmur, no edema Chest (Breasts) Chest: normal inspection of chest Gastrointestinal (Abdomen) Inspection/Auscultation: abdomen normal to inspection and normal bowel sounds; abdomen not distended Percussion/Palpation: + abdomen tender (In right lower quadrant and right suprapubic region with small mass palpabl) and abdomen soft; no guarding Musculoskeletal Extremities: extremities normal to inspection; no cyanosis and no clubbing Skin no rashes, warm and dry no ecchymosis Neurologic moves all extremities and awake; no focal motor deficits Psychiatric A+Ox3, euthymic affect Lymphatic no lymphedema Discharge Data Allergies Allergy/AdvReac Type Severity Reaction Status Date / Time No Known Allergies Allergy Unverified 11/20/19 17:01 Consultations 11/20/19 18:49 ED Decision to Admit Stat 11/20/19 20:39 Consult Case Management - Discharge Planning Routine 11/21/19 08:54 Consult Gastroenterology Routine Ordered Studies 11/20/19 15:26 CT abd pelvis wo con Stat CXR Hospital Course (1) ARF (acute renal failure): Likely related to decreased PO intake and chronic diarrhea for the last month or so Tolerating po, drinking fluids, diarrhea resolving, feeling much better Baseline creatinine 1.2 but creatinine was up to 2.05 on admission Creatinine now improving down to 1.68 with IV fluids -Hold torsemide after discharge -recheck BMP on Sunday and if improved, can restart torsemide -also to HOLD metformin and reduce januvia to 50mg daily (2) Rectus sheath hematoma: Seen on right side on CT, likely secondary to receiving SQ heparin shots in abdomen at [facility] after recent CEA On Brilinta and Xarelto contributing Has tenderness and small palpable hematoma on exam in right lower abdomen at site of hematoma seen on CT -not expanding, hgb has actually gone up since yesterday and stable -ok to continue Xarelto and Brilinta given recent procedure and high risk to stop anticoagulation -check CBC on Sunday (3) Colitis: CT scan of abdomen/pelvis with inflammation around the cecum and/or bladder. With similar findings on previous CT scan when she was here with right lower quadrant pain and hypotension in 10/2019 Has a history of mesenteric stenosis-seen by Vascular at [facility] and told to watch it for now, avoid hypotension Could be ischemic colitis versus infectious -Seems to be milder at this point and abd pain here more likely related to rectus hematoma -UA normal so cystitis ruled out as suggested by Radiologist -Had colonoscopy 4 months ago which only showed 1 hyperplastic polyp but this symptom has occurred since that time -Consult GI appreciated- ordered recommended stool culture, C. difficile, stool calprotectin which she will collect at home as she could not give a sample prior to discharge (diarrhea improved) and recommends colonoscopy in 4-6 weeks or possibly sooner -Will need outpatient follow-up -Okay to continue regular diet -will DC prednisone as can lead to gut perforation especially in setting of colitis/ischemic colitis (4) Weakness: Likely multifactorial in the setting of recent R CEA with poor p.o. intake, renal failure, dehydration. Orthostatic blood pressures normal UA neg Flu neg EKG neg for acute TSH WNL Hb, trop WNL -Improved (5) Diarrhea: CTAP noted for possible colitis at nino-cecal area less than on previous CT but persistent, however pt with diarrhea once a day or every other day Has been ongoing for several weeks to over a month Possible ischemic colitis given vascular issues widespread Monitor -Checking stool studies as above -Will need colonoscopy in 4 to 6 weeks (6) Restless legs: continue home pramipexole 1 mg p.o. at bedtime (7) NSTEMI (non-ST elevated myocardial infarction): Patient follows with Dr. Mojica for pacemaker and CAD, pacemaker placed in 2016, several OK over past few years. -Continue Brilinta, Xarelto - Continue Ranexa -nothing acute (8) Diabetes mellitus type 2, uncontrolled: On discharge, she will hold home metformin due to technician automated equipment being up, reduce Januvia to 50mg for renal dosing, continue home glimepiride With hyperglycemia here secondary to prednisone use-will dc prednisone A1c improved from previous at 7.9% -f/u with PCP (9) Depression with anxiety: No present symptoms. - Continue Cymbalta 60 mg daily, Ativan 0.5 mg twice daily prn (10) Combined systolic and diastolic heart failure: Last echo on 05/10/2019 with EF of 55=60%. Was hypovolemic on admission due to dehydration No signs of fluid overload on CXR Received gentle IVF for ANNETTE and now euvolemic -Continue metoprolol tartrate 100 mg p.o. twice daily -We will hold torsemide for acute kidney injury as above (11) COPD, moderate: Follows with pulmonology as an outpatient, PFT revealed moderate obstruction without significant improvement after bronchodilator. With recently worsening shortness of breath which may be a side effect of Brilinta versus COPD exacerbation Was recently started on prednisone and cefdinir by her outpatient pulmonology provider Dyspnea improved now -discontinue prednisone -caution with steroid use in the setting of suspected ischemic colitis-increases risk for perforation -Complete 5-day course of cefdinir-today day #4 and she will do one more day after discharge Chest x-ray without pneumonia -continue antitussives with Robitussin DM and Tessalon Perles as needed - Continue Spiriva, DuoNebs prn - Continue 2 L O2 HS -Advised patient to discuss possibility that Brilinta is causing her increased shortness of breath and to see about switching back to Plavix (12) Hypomagnesemia: Replaced (13) SSS (sick sinus syndrome): s/p pacer (14) PAD (peripheral artery disease): Previously followed by Dr. Sheffield in [place], s/p left carotid endarterectomy and restented, multiple stents in both legs. Also with recent right CEA Follows with [place] [facility] once yearly. - Continue Brilinta - Continue rosuvastatin (15) HLD (hyperlipidemia): continue home reosuvastatin (16) HTN (hypertension): Blood pressures acceptable Orthostatics negative -Continue diltiazem 240 mg once daily -Continue metoprolol tartrate 100 mg p.o. twice daily -Holding torsemide (17) SMA stenosis: Noted 50% stenosis on previous imaging Follows with vascular surgery (18) Status cardiac pacemaker: Noted (19) Dyspnea: As above, could be secondary to Brilinta versus COPD exacerbation -Treated with steroids as above, bronchodilators If worsens again, she will discuss with her vascular surgeon about switching Brilinta back to Plavix (20) History of carotid endarterectomy: Of the right-sided neck, wound looks great -Continue Brilinta, Xarelto, statin -Has follow-up planned with vascular surgeon in the near future (21) CKD (chronic kidney disease) stage 3, GFR 30-59 ml/min: Baseline Cr ~1.3 to 1.5, eGFR ~45. With acute kidney injury as above -Avoid nephrotoxins -Renally dose medications when appropriate (22) DVT prophylaxis: Xarelto Disposition- discharge to home today Total Time Total Time Spent Total Time Spent (In Minutes): 40 min Total Time Includes: Examination of the Patient, Discharge Planning and Medication Reconciliation Discharge Plan Discharge Items Patient Disposition: Home - Self-Care Reason For Visit: ANNETTE Discharge Diagnosis: Acute kidney injury, Rectus sheath hematoma, Colitis Condition on Discharge: Good Activity: Resume your previous activity Non-emergency contact: Primary Care Provider and Audiovisual Technician Call non-emergency contact if: you have any medication questions, your symptoms worsen, your pain is not controlled, your pain is worsening, your pain is unusual for you, your pain is concerning for you, you have a fever and your temperature is above 101 Follow-up/Referrals: Glenny Correa CRNP [Primary Care Provider] - 11/27/19 2:00 pm (Please follow up within 1 week.) Alexia Delcid CRNP [Nurse Practitioner] - 12/01/19 2:20 pm Bel Lindsey CRNP [Nurse Practitioner] - 11/28/19 3:00 pm (Please, follow up at [facility] Pulmonology Office with Bel JACKSON on SundayNovember 27 at 3:00 pm. *The office is located in [address] of [facility], next to this hospital. If you need to change this appointment, call the office at [phone].) Diet: Carb Consistent or DM2 and Heart Healthy Ambulatory Orders: Basic Metabolic Panel (Routine) Timeframe: 2 Days Location: Determined by Patient Ordered By: Alana Ochoa Complete Blood Count with Diff (Routine) Timeframe: 1 Day Location: Determined by Patient Ordered By: Alana Ochoa Cdiff Toxin B Gene (2yr or >) (Routine) Timeframe: 2 Days Location: Determined by Patient Ordered By: Alana Ochoa Stool Culture (Routine) Timeframe: 2 Days Location: Determined by Patient Ordered By: Alana Ochoa Calprotectin,Stool (Routine) Timeframe: 2 Days Location: None Selected Ordered By: Alana Ochoa Addtl Attending Provider Instructions: Please STOP taking the prednisone. Please temporarily HOLD your metformin until your kidney function improves. Your Januvia dose was reduced to 50mg once daily. If your shortness of breath worsens again off steroids, please see your doctor, but there is a possibility that your shortness of breath could be related to the Brilinta you are taking--> please discuss this with your Vascular Surgeon. As for your abdominal pain. Some of the pain may be coming from the area of inflammation in the colon. Please collect the stool sample at home and turn it into the lab. Follow up with the GI doctor to schedule a colonoscopy in 4 weeks. You also have a suspected hematoma of the muscle in your abdomen which is more likely the cause of your abdominal pain. It does not seem to be expanding and your hemoglobin is stable. It is recommended that you remain on your blood thinners due to your severe vascular disease. This should resolve on its own over time. Please have your BMP lab drawn on Sunday and results will be forwarded to your PCP. Pending Studies at Discharge: No Stand-Alone Forms: [employer], Smoking Cessation Medications and DC Order Prescriptions: New Robitussin Cough-Chest Noé DM 5-100 mg/5 mL Liquid 10 ml PO Q6H PRN (Reason: cough) Qty: 237 RF: 0 Januvia 50 mg tablet 50 mg PO DAILY Qty: 30 RF: 0 Continued lorazepam 0.5 mg tablet 0.5 mg PO BID PRN (Reason: Anxiety) RF: 0 ipratropium-albuterol 0.5 mg-3 mg(2.5 mg base)/3 mL solution for nebulization 3 ml INH Q4H PRN (Reason: shortness of breath or wheezing) Qty: 90 RF: 2 glimepiride 1 mg tablet 1 mg PO QAM Qty: 90 RF: 3 ranolazine [Ranexa] 500 mg tablet extended release 12 hr 500 mg PO BID Qty: 180 RF: 3 rosuvastatin 40 mg tablet 40 mg PO QAM Qty: 90 RF: 3 diltiazem HCl 240 mg capsule,extended release 24hr 240 mg PO QAM Qty: 90 RF: 3 pregabalin [Lyrica] 75 mg capsule 75 mg PO TID Qty: 90 RF: 3 albuterol sulfate [Ventolin HFA] 90 mcg/actuation HFA aerosol inhaler 2 puffs INH Q6H PRN (Reason: shortness of breath or wheezing) Qty: 8 RF: 2 cefdinir 300 mg capsule 300 mg PO BID Qty: 14 RF: 0 nitroglycerin 0.4 mg tablet, sublingual 0.4 mg SL Q5M PRN (Reason: Angina) Qty: 1 RF: 0 (DME) Over Night Pulse OX Misc See Dose Instructions .ROUTE .MEDSUPPLY Qty: 1 RF: 0 Xarelto 20 mg tablet 20 mg PO QAM RF: 0 pramipexole 1 mg tablet 1 mg PO HS Qty: 90 RF: 1 metoprolol tartrate 100 mg Tablet 100 mg PO BID RF: 0 magnesium oxide 400 mg (241.3 mg magnesium) tablet 400 mg PO QAM RF: 0 duloxetine 60 mg capsule,delayed release(DR/EC) 60 mg PO QAM RF: 0 Spiriva Respimat 2.5 mcg/actuation mist 2 puffs INH QAM RF: 0 Brilinta 90 mg tablet 90 mg PO BID RF: 0 Discontinued prednisone 10 mg tablet See Rx Instructions PO DAILY Qty: 20 RF: 0 potassium chloride 10 mEq tablet extended release 10 meq PO QAM RF: 0 metformin 1,000 mg Tablet 1,000 mg PO BID RF: 0 Januvia 100 mg tablet 100 mg PO QAM RF: 0 torsemide 20 mg tablet 30 mg PO QAM RF: 0 Discharge Orders: Discharge Order (Routine); Ordered 11/22/19 Ordered By: Alana Ochoa Admission Data Admit Date/Time: 11/20/19 19:44 Attending Provider: Alana Ochoa Admit Provider: Radhika Diehl Primary Care Provider: Glenny Correa Other Providers: Radhika Diehl ; Anjum Monson Other Interventions: Discharge Summary Assessment (RN) Last Done: 11/22/19 12:46 DC Date/Time DO NOT enter until pt leaves facility: 11/22/19 13:30 Coding Level of Care Code D/C Day Management >30 mins Diagnoses ARF (acute renal failure) N17.9 Rectus sheath hematoma S30.1XXA Colitis K52.9 Weakness R53.1 Diarrhea R19.7 Restless legs G25.81 NSTEMI (non-ST elevated myocardial infarction) I21.4 Diabetes mellitus type 2, uncontrolled E11.65 Glycemic state: with hyperglycemia Depression with anxiety F41.8 Combined systolic and diastolic heart failure I50.42 Heart failure chronicity: chronic COPD, moderate J44.9 Hypomagnesemia E83.42 SSS (sick sinus syndrome) I49.5 PAD (peripheral artery disease) I73.9 HLD (hyperlipidemia) E78.2 Hyperlipidemia type: mixed hyperlipidemia HTN (hypertension) I10 Hypertension type: essential hypertension SMA stenosis I77.1 Status cardiac pacemaker Z95.0 Dyspnea R06.00 History of carotid endarterectomy Z98.890 CKD (chronic kidney disease) stage 3, GFR 30-59 ml/min N18.3 DVT prophylaxis Z29.9
--- NOTE | 2019-11-24 18:07 | Communication Note ---
Date of Service: November 24, 2019 Received lab results and I called Octavia about them today. Her WBC count is trending upward despite stopping her prednisone at my direction on [facility] 2 days prior. She is having worsening abd pain and bruising all over her abdomen that wasn't there 2 days ago when I saw her. She has a rectus muscle hematoma on CT imaging that may be now coming to the surface with the bruising. Her hgb is actually up so I don't think she's bleeding. She said her vitals at home are fine but I advised her to go back to the ER to get checked out again and have repeat imaging. Fortunately her creatinine is improving. Referred to ER for worsening abdominal pain, not feeling well, worsening leukocytosis--> consider infection of hematoma and repeat imaging of abdomen.
== END 2019-11-22 13:30 | disposition home or self-care (01) ==
LOC: ED 15:08 → INTOOBSV 19:44 → 2E 19:44 → SUATTDRO 19:44 → 2E 20:17

== ENCOUNTER 2019-11-24 18:48 | Observation (INO) ==
[2019-11-24] MEDS ORDERED: OXYCODONE HCL IR 5 MG TAB (IMMEDIATE RELEASE) PO STA (19:12)
--- NOTE | 2019-11-24 19:17 | Emergency Department Note ---
ED Provider Note Name: ROBERT QUINTANILLA Age: 63 Sex: F Arrives Via: Walk-In Informant: Patient, Sister ED Provider: Santiago Robles MD Chief Complaint: Lower abdominal pain Impression: Rectus Sheath Hematoma Acute Anemia Acute Hyperglycemia Medical Decision Makin yr old female with extensive PVD with recent CEA and previous SMA stenting on both Xarelto and Brilinta arrives with worsening lower abdominal pain. Known small rectus sheath hematoma a few days ago though acutely worsening after trip earlier today. Did not notice injury to self and has not headache neck pain not striking either. She is uncomfortable though Oxy IR improved pain. Vitals without hypotension. Exam with bruising lower abdominal pain. With worsening pain imaging reasonable, though hold off on dye as she was just in acute on chronic renal insufficiency a few days ago. Imaging with increasing hematoma at 3.3 cm. Hemoglobin down 1.5 from earlier today though not requiring transfusion. Reviewed with Rosangela Aly who advised hospitalization for monitoring, stop Xarelto for now, continue brilinta and repeat labs/imaging to verify not worsening. Will requiring transfer for IR if worsening. Patient also noted to be hyperglycemia which post steroids isn't too unremarkable and was treated with IV insulin. I do not feel there is acute ongoing infection at this time. UA now clear and on abx. Prior Medical Record and Triage/Nursing Notes reviewed by Me Additional history obtained from sister Differentials:Rectus sheath hematoma, retroperitoneal bleed, anemia, renal failure, amongst other pathologies. Vital Signs: reviewed and remarkable for no significant abnormalities Interventions: Saline Lock, Oxy Ir 5mg PO, Insulin 8mg IV Labs:Reviewed and remarkable for hyperglycemia, anemia Imaging:Radiologist interpretation reviewed by me: Hematoma rectus sheath increased, bladder thickening, amongst others Consults:Dr Clarke who will evaluate further Dr Khanna [facility] Rosangela advises hospitalization for monitoring, stop xarelto for now, cont brillinta, repeat hgb/imaging in morning. Plan: Disposition:Hospitalization. Home. Condition: Fair Blood pressure:Normal.No Referral necessary History of Present Illness:63 female arrives for evaluation of lower abdominal pain. Patient with recent CEA with sub q heparin in abdomen as well as being on Xarelto and Brilinta. Was re-admitted 4 days ago for dehydration, shortness of breath and renal insufficiency. During admission found to have rectus sheath hematoma. Notes pain and bruising increased today. Discussed with PCP/Hospi talist who advised return to ED for further evaluation and imaging. Patient not taking anything for pain. Movement makes worse, rest makes better. Admits tipped and fell yesterday but no injury and denies abdominal, chest, back, head, neck trauma. Denies current cp, sob, headache, neck pain, urinary symptoms, leg swelling nor other symptoms. ROS: See above HPI for pertinent positives & negatives. A total of 8 systems reviewed and were otherwise negative. Past Medical History:See Below Past Surgical History:See Below Family History:See Below Social History:See Below Home Medications:See Below Allergies:See Below Vitals:Blood Pressure: 155/73, Pulse 96, RR 18, T 36.7C, O2 96% on RA Physical Exam: GENERAL: Patient is tired appearing and in moderate distress. EYES: No scleral icterus, unremarkable pupils. ENT: Mucous membranes moist, no nasal congestion. NECK: No masses appreciated, nomeningismus, trachea is midline. RESPIRATORY: No dyspnea. Clear to auscultation and equal bilaterally. No wheeze, no rhonchi. CARDIOVASCULAR: Regular rate and rhythm.No murmurs, rubs, gallops appreciated. GASTROINTESTINAL: Diffuse lower abdominal bruising midline with TTP over bruising but not over rest of abdomen. Otherwise abdomen soft, non-tender, no peritonitis.Bowel sounds positive.No masses appreciated. BACK: No midline tenderness, no CVA tenderness EXTREMITIES: Normal motion all extremities, no cyanosis, no edema. NEUROLOGIC: Alert and oriented, no acute motor or sensory deficits, no focal weakness, cranial nerves grossly intact. SKIN: Slight small bruise right lower lateral back, moderate bruising midline lower abdomen. No rash, no jaundice, no diaphoresis. PSYCH: Appropriate GCS: 15 ED Course: Times/Reassessments: Stable, breathing comfortably, feeling better Santiago Robles MD Impression & Plan Rectus sheath hematoma, Anemia, Acute hyperglycemia Past Med/Surg History Medical History (Updated 11/24/19 @ 23:47 by Santiago Robles MD) ANNETTE (acute kidney injury) Altered mental status Anxiety Bulging discs CAD (coronary artery disease) Chronic back pain Combined systolic and diastolic heart failure COPD (chronic obstructive pulmonary disease) Degenerative disc disease Depression with anxiety Diabetic nephropathy DM II (diabetes mellitus, type II), controlled Dyspnea HLD (hyperlipidemia) HTN (hypertension) Hx of non-ST elevation myocardial infarction (NSTEMI) 05/2018 Hyperlipidemia Hypertension (Acute) Hypokalemia Hyponatremia Hypoxia Left ventricular diastolic dysfunction Medical marijuana use Metabolic encephalopathy Myocardial Infarction 05/2018 - [facility] Obesity Pacemaker 05/2015 - Sick sinus syndrome - Last checked 02/2019 ([facility]) - [employer] PAD (peripheral artery disease) Paroxysmal SVT (supraventricular tachycardia) Restless legs Rheumatoid arthritis Spinal stenosis Weakness Surgical History (Updated 11/23/19 @ 00:03 by Quyen Srivastava) History of cardiac cath 05/2018 - [facility] - NO STENTS/ANGIOPLASTY - COLLATERAL CIRCULATION - FOLLOWS W/ DR. ERWIN History of carotid endarterectomy History of cataract surgery BILATERAL History of cholecystectomy History of intravascular stent placement Multiple stents in bilateral legs, left subclavian, left aortic mesenteric bypass, left carotid endarterectomy History of oral surgery History of tonsillectomy History of tooth extraction Social History Preferred Language: Slovenian Communication Ability: Effective Visual Impairment: No Limitations Police Worker Required: No Beliefs That Will Affect Care: None marital status: Current Living Situation: Family Current Living Situation Comment: Lives with sister Feels Safe at Home: Yes Smoking Status: Never smoker Tobacco Type: cigarettes ; Second Hand Exposure: No ; Hx Alcohol Use: No Hx Substance Use: Yes substance use type: marijuana Substance Use Type Other:: "vaping THC" Last Used Substance: Hours (ago) Results & Data Vital Signs Vital Signs - 24 hr 11/24/19 18:59 11/24/19 20:43 11/24/19 23:20 Temperature 36.7 C Temperature Source Oral Pulse Rate 96 H Pulse Rate [Right Finger] 83 72 Respiratory Rate 18 18 16 Respiratory Effort / Characteristics Non-Labored Spontaneous Non-Labored Spontaneous Non-Labored Spontaneous Respiratory Depth Normal Normal Normal Respiratory Pattern Regular Regular Regular Blood Pressure 155/73 H Blood Pressure [Right Arm] 152/83 H 151/79 H Blood Pressure Mean 100 Blood Pressure Mean [Right Arm] 106 103 Blood Pressure Position Sitting Blood Pressure Position [Right Arm] Lying Lying Pulse Oximetry 96 96 95 Oxygen Delivery Method Room Air Room Air Room Air Sepsis Recent Fever Within 48 Hours No Sepsis New/Unexplained Change in Mental Status No Sepsis Action Taken by Nursing No Action Required Laboratory Data Result diagrams: 11/24/19 19:33 11/24/19 19:33 Lab Results 11/24/19 11/24/19 11/24/19 Range/Units 19:33 19:33 20:40 WBC 9.07 (4.8-10.8) K/uL RBC 3.86 L (4.2-5.4) M/uL Hgb 10.4 L (12.0-16.0) g/dL Hct 32.9 L (37-47) % MCV 85.2 (80-100) fL MCH 26.9 (25-34) pg MCHC 31.6 L (32-36) g/dL RDW Std Deviation 53.9 H (36.4-46.3) fL RDW Coeff of Tosin 17.4 H (11.5-14.5) % Plt Count 190 (130-400) K/uL MPV 13.3 H (7.4-10.4) fL Immature Gran % (Auto) 0.3 % Neut % (Auto) 70.0 % Lymph % (Auto) 16.0 % [place] % (Auto) 10.7 % Eos % (Auto) 2.8 % Baso % (Auto) 0.2 % Immature Gran # (Auto) 0.03 H (0.00-0.02) K/uL Neut # (Auto) 6.35 (1.4-6.5) K/uL Lymph # (Auto) 1.45 (1.2-3.4) K/uL [place] # (Auto) 0.97 H (0.11-0.59) K/uL Eos # (Auto) 0.25 (0-0.5) K/uL Baso # (Auto) 0.02 (0-0.2) K/uL Sodium 134 L (136-145) mmol/L Potassium 4.0 (3.5-5.1) mmol/L Chloride 102 (98-107) mmol/L Carbon Dioxide 24 (21-32) mmol/L Anion Gap 7.0 (3-11) BUN 17 (7-18) mg/dl Creatinine 1.48 H (0.6-1.2) mg/dl Est Cr Clr Drug Dosing Not Reportable Est GFR ( Amer) 42.9 Est GFR (Non-Af Amer) 37.0 BUN/Creatinine Ratio 11.7 (10-20) Glucose 353 H* (70-99) mg/dl POC Glucose (70-99) mg/dl Calcium 8.6 (8.5-10.1) mg/dl Beta-Hydroxybutyric Acd 1.26 (0.2-2.81) mg/dl Urine Color Yellow Urine Appearance Clear (Clear) Urine pH 6.5 (4.5-7.5) Ur Specific [place] 1.021 (1.000-1.030) Urine Protein Trace H (Negative) Urine Glucose (UA) 3+ H (Negative) Urine Ketones Negative (Negative) Urine Blood Negative (Negative) Urine Nitrite Negative (Negative) Urine Bilirubin Negative (Negative) Urine Urobilinogen Negative (Negative) Ur Leukocyte Esterase Trace H (Negative) Urine WBC (Auto) 1-5 (0-5) /hpf Urine RBC (Auto) 0-4 (0-4) /hpf U Hyaline Cast (Auto) 0 (0-5) /lpf U Epithel Cells (Auto) 20-30 H (0-5) /lpf Urine Bacteria (Auto) Negative (Negative) 11/24/19 Range/Units 22:17 WBC (4.8-10.8) K/uL RBC (4.2-5.4) M/uL Hgb (12.0-16.0) g/dL Hct (37-47) % MCV (80-100) fL MCH (25-34) pg MCHC (32-36) g/dL RDW Std Deviation (36.4-46.3) fL RDW Coeff of Tosin (11.5-14.5) % Plt Count (130-400) K/uL MPV (7.4-10.4) fL Immature Gran % (Auto) % Neut % (Auto) % Lymph % (Auto) % [place] % (Auto) % Eos % (Auto) % Baso % (Auto) % Immature Gran # (Auto) (0.00-0.02) K/uL Neut # (Auto) (1.4-6.5) K/uL Lymph # (Auto) (1.2-3.4) K/uL [place] # (Auto) (0.11-0.59) K/uL Eos # (Auto) (0-0.5) K/uL Baso # (Auto) (0-0.2) K/uL Sodium (136-145) mmol/L Potassium (3.5-5.1) mmol/L Chloride (98-107) mmol/L Carbon Dioxide (21-32) mmol/L Anion Gap (3-11) BUN (7-18) mg/dl Creatinine (0.6-1.2) mg/dl Est Cr Clr Drug Dosing Est GFR ( Amer) Est GFR (Non-Af Amer) BUN/Creatinine Ratio (10-20) Glucose (70-99) mg/dl POC Glucose 136 H (70-99) mg/dl Calcium (8.5-10.1) mg/dl Beta-Hydroxybutyric Acd (0.2-2.81) mg/dl Urine Color Urine Appearance (Clear) Urine pH (4.5-7.5) Ur Specific [place] (1.000-1.030) Urine Protein (Negative) Urine Glucose (UA) (Negative) Urine Ketones (Negative) Urine Blood (Negative) Urine Nitrite (Negative) Urine Bilirubin (Negative) Urine Urobilinogen (Negative) Ur Leukocyte Esterase (Negative) Urine WBC (Auto) (0-5) /hpf Urine RBC (Auto) (0-4) /hpf U Hyaline Cast (Auto) (0-5) /lpf U Epithel Cells (Auto) (0-5) /lpf Urine Bacteria (Auto) (Negative) Administered Medications Hydromorphone HCl (Dilaudid) 0.5 mg IV Q3H PRN PRN Reason: Severe Pain Stop: 12/08/19 23:01 Last Admin: 11/24/19 23:20 Dose: 0.5 mg Documented by: [id number] Discontinued Medications Insulin Human Regular (Novolin R) 8 units IV NOW STA Stop: 11/24/19 21:05 Last Admin: 11/24/19 21:22 Dose: 8 units Documented by: [id number] Cosigned by: [id number] Insulin Human Regular (Novolin R U-100 Per Unit) Confirm Administered Dose 8 units .ROUTE .STK-MED ONE Stop: 11/24/19 21:20 Last Admin: 11/24/19 21:23 Dose: Not Given Documented by: [id number] Oxycodone HCl (Roxicodone Immediate Rel) 5 mg PO NOW STA Stop: 11/24/19 19:13 Last Admin: 11/24/19 19:22 Dose: 5 mg Documented by: [id number] Discharge Plan Visit Data Chief Complaint: Abdominal Pain Stated Complaint: ABD BRUISING ED Provider: Santiago Robles Discharge Problem: Rectus sheath hematoma, Anemia, Acute hyperglycemia Discharge Instructions Interventions: ED Discharge Assessment Last Done: 11/24/19 23:39 Forms Stand Alone Forms: [facility] Prescriptions Prescriptions: No Action lorazepam 0.5 mg tablet 0.5 mg PO BID PRN (Reason: Anxiety) RF: 0 ipratropium-albuterol 0.5 mg-3 mg(2.5 mg base)/3 mL solution for nebulization 3 ml INH Q4H PRN (Reason: shortness of breath or wheezing) Qty: 90 RF: 2 glimepiride 1 mg tablet 1 mg PO QAM Qty: 90 RF: 3 ranolazine [Ranexa] 500 mg tablet extended release 12 hr 500 mg PO BID Qty: 180 RF: 3 rosuvastatin 40 mg tablet 40 mg PO QAM Qty: 90 RF: 3 diltiazem HCl 240 mg capsule,extended release 24hr 240 mg PO QAM Qty: 90 RF: 3 pregabalin [Lyrica] 75 mg capsule 75 mg PO TID Qty: 90 RF: 3 albuterol sulfate [Ventolin HFA] 90 mcg/actuation HFA aerosol inhaler 2 puffs INH Q6H PRN (Reason: shortness of breath or wheezing) Qty: 8 RF: 2 cefdinir 300 mg capsule 300 mg PO BID Qty: 14 RF: 0 nitroglycerin 0.4 mg tablet, sublingual 0.4 mg SL Q5M PRN (Reason: Angina) Qty: 1 RF: 0 (DME) Over Night Pulse OX Misc See Dose Instructions .ROUTE .MEDSUPPLY Qty: 1 RF: 0 Xarelto 20 mg tablet 20 mg PO QAM RF: 0 pramipexole 1 mg tablet 1 mg PO HS Qty: 90 RF: 1 metoprolol tartrate 100 mg Tablet 100 mg PO BID RF: 0 magnesium oxide 400 mg (241.3 mg magnesium) tablet 400 mg PO QAM RF: 0 duloxetine 60 mg capsule,delayed release(DR/EC) 60 mg PO QAM RF: 0 Spiriva Respimat 2.5 mcg/actuation mist 2 puffs INH QAM RF: 0 Brilinta 90 mg tablet 90 mg PO BID RF: 0 Robitussin Cough-Chest Noé DM 5-100 mg/5 mL Liquid 10 ml PO Q6H PRN (Reason: cough) Qty: 237 RF: 0 Januvia 50 mg tablet 50 mg PO DAILY Qty: 30 RF: 0 Referrals Referrals: Glenny Correa CRNP [Primary Care Provider] - Discharge Problem: Rectus sheath hematoma Qualifiers: Encounter type: initial encounter Qualified Code(s): S30.1XXA - Contusion of abdominal wall, initial encounter Anemia Qualifiers: Anemia type: other cause Other causes of anemia: acute posthemorrhagic Qualified Code(s): D62 - Acute posthemorrhagic anemia
[2019-11-24 19:58] LABS: Basophils # (auto) 0.02 K/uL (0-0.2); Basophils % (auto) 0.2 %; Eosinophils # (auto) 0.25 K/uL (0-0.5); Eosinophils % (auto) 2.8 %; Hematocrit (blood only) 32.9 % (37-47); Hemoglobin 10.4 g/dL (12.0-16.0); Immature Granulocytes # (auto) 0.03 K/uL (0.00-0.02); Immature Granulocytes % (auto) 0.3 %; Lymphocytes # (auto) 1.45 K/uL (1.2-3.4); Mean Corpuscular Hemoglobin 26.9 pg (25-34); Mean Corpuscular Hgb Conc 31.6 g/dL (32-36); Mean Corpuscular Volume 85.2 fL (80-100); Mean Platelet Volume 13.3 fL (7.4-10.4); Monocytes # (auto) 0.97 K/uL (0.11-0.59); Monocytes % (auto) 10.7 %; Neutrophils # (auto) 6.35 K/uL (1.4-6.5); Platelet Count 190 K/uL (130-400); RDW Coefficient of Variation 17.4 % (11.5-14.5); RDW Standard Deviation 53.9 fL (36.4-46.3); Red Blood Count 3.86 M/uL (4.2-5.4); White Blood Count 9.07 K/uL (4.8-10.8)
--- NOTE | 2019-11-24 20:21 | CT Scan Report ---
CT SCAN OF THE ABDOMEN AND PELVIS WITHOUT IV CONTRAST CLINICAL HISTORY: Generalized abdominal pain. Known rectus sheath hematoma. COMPARISON STUDY: Abdominal CT dated 11/20/2019 and 10/11/2019. TECHNIQUE: CT scan of the abdomen and pelvis is performed from the lung bases to the proximal femora. Images are reviewed in the axial, sagittal, and coronal planes. IV contrast was not administered for this examination as per the referring clinician. A dose lowering technique was utilized adhering to the principles of ALARA. CT DOSE: 1768.27 mGy.cm FINDINGS: Lung bases: The heart is normal in size and without pericardial effusion. Pacemaker leads are noted. There are coronary artery calcifications. The lung bases are clear noting bibasilar scarring/atelecta sis. Liver: The unenhanced liver is normal in size, contour, and attenuation. There is no intrahepatic jose iary ductal dilatation. Gallbladder: Surgically absent noting clips in the gallbladder fossa. Spleen: Normal in size and attenuation. Pancreas: The unenhanced pancreas is moderately atrophic and grossly unremarkable.. Adrenal glands: Unremarkable. Kidneys: The unenhanced kidneys are atrophic and without hydronephrosis. There are no renal calculi i dentified. There is no evidence of contour deforming renal mass lesion. Foci of cortical scarring are noted in both kidneys. Abdominal vasculature: There is advanced atherosclerotic calcification and mild ectasia of the abdomi nal aorta. Bilateral iliac artery stents are in place. Bowel: There is a large left lateral abdominal hernia which contains nonobstructed loops of bowel. No bowel obstruction is seen. Fecal retention is noted in the colon. Cecal inflammation has almost comp letely resolved. The appendix is well-visualized and normal. Peritoneum: There is no intraperitoneal free air or abdominal ascites. A right rectus sheath hematoma has modestly increased in size from 11/20/2019, and measures up to 3.3 cm in AP diameter. Surrounding inflammatory change is noted. Lymphadenopathy: None. Pelvic viscera: The the bladder wall appears circumferentially thickened. The uterus and adnexa are n ormal as visualized. Postoperative change is noted in the right groin. Skeletal structures: The skeletal structures are osteopenic. Moderate lumbosacral spondylosis is obse rved. Sclerotic change is noted in the sacroiliac joints. No lytic or blastic lesions are seen. IMPRESSION: 1. A right rectus sheath hematoma with surrounding inflammation has modestly increased in size from . 2. The bladder wall appears circumferentially thickened. Correlation with clinical findings and urina lysis will be required. 3. There is a large left lateral abdominal wall hernia which contains nonobstructed bowel loops. 4. Inflammatory change of the cecum has almost completely resolved from prior studies. 5. Additional findings as above. ACT 112: Negative or not required by law. Electronically signed by: Erik Corea M.D. 11/24/2019 8:19 PM
[2019-11-24 20:42] LABS: BUN Creatinine Ratio 11.7 (10-20); Blood Urea Nitrogen 17 mg/dl (7-18); Calcium 8.6 mg/dl (8.5-10.1); Carbon Dioxide 24 mmol/L (21-32); Chloride 102 mmol/L (98-107); Est GFR (African American) 42.9; Glucose 353 mg/dl (70-99); Sodium 134 mmol/L (136-145)
[2019-11-24 20:53] LABS: Appearance Urine Clear (Clear); Bacteria Urine Automated Negative (Negative); Bilirubin Urine Negative (Negative); Blood Urine Negative (Negative); Cast Urine Automated 0 /lpf (0-5); Color Urine Yellow; Epithelial Cell Urine Auto 20-30 /lpf (0-5); Glucose Urine UA 3+ (Negative); Ketones Urine Negative (Negative); Leukocyte Esterase Urine Trace (Negative); Nitrite Urine Negative (Negative); Protein Urine Trace (Negative); RBC Urine Automated 0-4 /hpf (0-4); Specific Gravity Urine 1.021 (1.000-1.030); Urobilinogen Urine Negative (Negative); pH Urine 6.5 (4.5-7.5)
[2019-11-24] MEDS ORDERED: INSULIN HUMAN REGULAR IV STA (21:04)
[2019-11-24 21:17] LABS: Beta-Hydroxybutyrate 1.26 mg/dl (0.2-2.81)
[2019-11-24] MEDS ORDERED: NovoLIN-R INSULIN PER UNIT CHARGE ONE (21:19)
[2019-11-24] MEDS: HYDROmorphone INJ 0.5 MG/0.5 ML SYR IV PRN (23:20)
--- NOTE | 2019-11-24 23:46 | History & Physical Report ---
Date of Service November 24, 2019 Assessment & Plan (1) Rectus sheath hematoma: Increasing size rectus sheath hematoma- No trauma noted, however, patient did go on a trip. Hold Xarelto. Continue Brilinta and Ranexa. H&H every 6 hours. Type and screen Per discussion with [facility], if patient is to worsen, will transfer tonight. Present on Admission?: Yes (2) CAD (coronary artery disease): CAD/PAD/combined systolic and diastolic CHF/hypertension- Hold Xarelto. Continue Brilinta, diltiazem, metoprolol tartrate. Present on Admission?: Yes (3) PAD (peripheral artery disease): See above Present on Admission?: Yes (4) Combined systolic and diastolic heart failure: See above Present on Admission?: Yes (5) HTN (hypertension): See above Present on Admission?: Yes (6) Diabetes mellitus type 2, uncontrolled: Patient with hyperglycemia upon presentation, post steroids. Given regular insulin IV in the ED. Placed on Accu-Cheks before meals and at bedtime with NovoLog coverage per scale. In the acute setting, will hold oral medications glimepiride and Januvia. Present on Admission?: Yes (7) Status cardiac pacemaker: stable Present on Admission?: Yes (8) CKD (chronic kidney disease) stage 3, GFR 30-59 ml/min: Creatinine 1.48 upon admission, with range 1.27-1.68 Follow serially Present on Admission?: Yes (9) COPD (chronic obstructive pulmonary disease): Continue usual albuterol inhaler and DuoNebs as needed. Present on Admission?: Yes (10) Mild cognitive impairment: Mild cognitive impairment/depression with anxiety- Continue lorazepam as needed, pregabalin, and duloxetine. Present on Admission?: Yes (11) Depression with anxiety: See above Present on Admission?: Yes History of Present Illness Chief Complaint: The patient presents to the emergency department with worsening lower abdominal pain and bruising after a trip earlier in the day today. Primary Care Provider: MANUEL Middleton The patient is a 63-year-old female with a past medical history including recent CEA, colitis, acute on chronic kidney disease, branch retinal artery occ lusion, diabetic foot ulcer, sick sinus syndrome, moderate COPD, diabetes mellitus, non-STEMI, previous nicotine dependence, CAD, pacemaker presents, PAD, hyperlipidemia, combined systolic and diastolic heart failure, depression with anxiety, and known rectus sheath hematoma from previous admission from 11/19- 11/22/2019. She presents to the emergency department with worsening right lower quadrant pain and bruising after a trip earlier the day today. Work-up in emergency department included a CT scan of the abdomen pelvis which showed increase in rectus sheath hematoma up to 3.[address] Robles from the ED spoke with [facility], who recommended that the patient be admitted and observed with frequent H&H's, holding Xarelto and continuing Brilinta, and repeat CT scan in the a.m. If there is worsening over the evening, the patient will need to be transferred to [facility]. Allergies Allergy/AdvReac Type Severity Reaction Status Date / Time No Known Allergies Allergy Verified 11/24/19 19:54 Home Medications Home Medications Medication Instructions Recorded Confirmed Type metoprolol tartrate 100 mg PO BID 05/13/18 11/24/19 History ipratropium 0.5 mg-albuterol 3 mg 3 ml INH Q4H PRN #90 ml 02/24/19 11/24/19 Rx (2.5 mg base)/3 mL nebulization soln lorazepam 0.5 mg tablet 0.5 mg PO BID PRN tab 02/24/19 11/24/19 History glimepiride 1 mg tablet 1 mg PO QAM #90 tab 02/27/19 11/24/19 Rx ranolazine 500 mg tablet,extended 500 mg PO BID #180 tab 03/27/19 11/24/19 Rx release,12 hr rosuvastatin 40 mg tablet 40 mg PO QAM #90 tab 06/04/19 11/24/19 Rx nitroglycerin 0.4 mg sublingual 0.4 mg SL Q5M PRN #1 tab 06/08/19 11/24/19 History tablet Over Night Pulse OX #1 ea 06/13/19 11/24/19 Rx diltiazem HCl 240 mg 240 mg PO QAM #90 cap 06/16/19 11/24/19 Rx capsule,extended release 24 hr pregabalin 75 mg capsule 75 mg PO TID #90 cap 06/19/19 11/24/19 Rx Spiriva Respimat 2 puffs INH QAM 07/18/19 11/24/19 History duloxetine 60 mg PO QAM 07/18/19 11/24/19 History magnesium oxide 400 mg PO QAM 07/18/19 11/24/19 History albuterol sulfate 90 mcg/actuation 2 puffs INH Q6H PRN #8 gm 10/08/19 11/24/19 Rx aerosol inhaler pramipexole 1 mg tablet 1 mg PO HS #90 tab 10/22/19 11/24/19 Rx rivaroxaban 20 mg tablet 20 mg PO QAM 10/22/19 11/24/19 History cefdinir 300 mg capsule 300 mg PO BID #14 cap 11/19/19 11/24/19 Rx Brilinta 90 mg PO BID 11/20/19 11/24/19 History dextromethorphan-guaifenesin 10 ml PO Q6H PRN #237 ml 11/22/19 11/24/19 Rx [Robitussin Cough-Chest Noé DM] sitagliptin [Januvia] 50 mg PO DAILY #30 tab 11/22/19 11/24/19 Rx Past Med/Surg History Medical History (Updated 11/24/19 @ 23:47 by Santiago Robles MD) ANNETTE (acute kidney injury) Altered mental status Anxiety Bulging discs CAD (coronary artery disease) Chronic back pain Combined systolic and diastolic heart failure COPD (chronic obstructive pulmonary disease) Degenerative disc disease Depression with anxiety Diabetic nephropathy DM II (diabetes mellitus, type II), controlled Dyspnea HLD (hyperlipidemia) HTN (hypertension) Hx of non-ST elevation myocardial infarction (NSTEMI) 05/2018 Hyperlipidemia Hypertension (Acute) Hypokalemia Hyponatremia Hypoxia Left ventricular diastolic dysfunction Medical marijuana use Metabolic encephalopathy Myocardial Infarction 05/2018 - [facility] Obesity Pacemaker 05/2015 - Sick sinus syndrome - Last checked 02/2019 ([facility]) - [employer] PAD (peripheral artery disease) Paroxysmal SVT (supraventricular tachycardia) Restless legs Rheumatoid arthritis Spinal stenosis Weakness Surgical History (Updated 11/23/19 @ 00:03 by Background Daemon) History of cardiac cath 05/2018 - [place] - NO STENTS/ANGIOPLASTY - COLLATERAL CIRCULATION - FOLLOWS W/ DR. 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 Required: No Beliefs That Will Affect Care: None marital status: Current Living Situation: Family Current Living Situation Comment: Lives with sister Feels Safe at Home: Yes Smoking Status: Former smoker Tobacco Type: cigarettes ; Second Hand Exposure: No ; Hx Alcohol Use: No Hx Substance Use: Yes substance use type: marijuana Substance Use Type Other:: "vaping THC" Last Used Substance: Hours (ago) Review of Systems Review of Systems: The patient denies chest pain, palpitations, shortness of breath, dyspnea on exertion, cough, lower extremity swelling, sore throat, fevers, chills, sweats, weight change, fatigue, nausea, vomiting, diarrhea , constipation, blood in urine or stool, dysuria, urinary frequency or urgency, lightheadedness, dizziness, headache, loss of consciousness, imbalance, focal or generalized weakness, numbness or tingling in arms or legs, generalized arthralgias or myalgias, back or neck pain, or night sweats. The review of systems is otherwise negative other than for that already noted above, and at least 10 systems have been reviewed. Physical Exam Physical Exam: The patient is awake, alert and oriented 3, normocephalic and atraumatic, lying in bed and in no acute distress. HEENT--PERRL, EOMI, mucous membranes and oropharynx dry. Neck--supple. No JVD. No bruits. Thyroid normal, trachea midline, no adenopathy. Heart--normal S1 and S2. No murmurs, rubs or gallops. Lungs--clear bilaterally, no respiratory distress, no accessory muscle use. Abdomen--normal bowel sounds and soft. Tenderness over lower quadrant. Nondistended. Extremities--no cyanosis or clubbing. No edema. There are good distal pulses b/l. Dermatologic--ecchymosis lower quadrant Neurologic--cranial nerves II through XII grossly intact. Rheumatologic--normal range of motion. Psychiatric--normal affect. Results & Data Vital Signs (Past 12 Hours) Vital Signs Temp Pulse Pulse Resp BP BP Pulse Ox 11/24/19 23:20 72 16 151/79 H 95 11/24/19 20:43 83 18 152/83 H 96 11/24/19 18:59 98.1 F 96 H 18 155/73 H 96 Laboratory Results Laboratory Results WBC 9.07 K/uL (4.8-10.8) 11/24/19 19:33 RBC 3.86 M/uL (4.2-5.4) L 11/24/19 19:33 Hgb 11.3 g/dL (12.0-16.0) L 11/25/19 00:53 Hct 35.0 % (37-47) L 11/25/19 00:53 MCV 85.2 fL (80-100) 11/24/19 19:33 MCH 26.9 pg (25-34) 11/24/19 19:33 MCHC 31.6 g/dL (32-36) L 11/24/19 19:33 RDW Std Deviation 53.9 fL (36.4-46.3) H 11/24/19 19:33 RDW Coeff of Tosin 17.4 % (11.5-14.5) H 11/24/19 19:33 Plt Count 190 K/uL (130-400) 11/24/19 19:33 MPV 13.3 fL (7.4-10.4) H 11/24/19 19:33 Immature Gran % (Auto) 0.3 % 11/24/19 19:33 Neut % (Auto) 70.0 % 11/24/19 19:33 Lymph % (Auto) 16.0 % 11/24/19 19:33 [place] % (Auto) 10.7 % 11/24/19 19:33 Eos % (Auto) 2.8 % 11/24/19 19:33 Baso % (Auto) 0.2 % 11/24/19 19:33 Immature Gran # (Auto) 0.03 K/uL (0.00-0.02) H 11/24/19 19:33 Neut # (Auto) 6.35 K/uL (1.4-6.5) 11/24/19 19:33 Lymph # (Auto) 1.45 K/uL (1.2-3.4) 11/24/19 19:33 [place] # (Auto) 0.97 K/uL (0.11-0.59) H 11/24/19 19:33 Eos # (Auto) 0.25 K/uL (0-0.5) 11/24/19 19:33 Baso # (Auto) 0.02 K/uL (0-0.2) 11/24/19 19:33 Sodium 134 mmol/L (136-145) L 11/24/19 19:33 Potassium 4.0 mmol/L (3.5-5.1) 11/24/19: Chloride 102 mmol/L (98-107) 11/24/19 19: Carbon Dioxide 24 mmol/L (21-32) 11/24/19 19:33 Anion Gap 7.0 (3-11) 11/24/19 19:33 BUN 17 mg/dl (7-18) 11/24/19 19: Creatinine 1.48 mg/dl (0.6-1.2) H 11/24/19 19:33 Est Cr Clr Drug Dosing Not Reportable 11/24/19: Est GFR ( Amer) 42.9 11/24/19 19: Est GFR (Non-Af Amer) 37.0 11/24/19 19:33 BUN/Creatinine Ratio 11.7 (10-20) 11/24/19 19:33 Glucose 353 mg/dl (70-99) H* 11/24/19: POC Glucose 136 mg/dl (70-99) H 11/24/19 22:17 Calcium 8.6 mg/dl (8.5-10.1) 11/24/19: Troponin I < 0.015 ng/ml (0-0.045) 11/25/19 00:53 Beta-Hydroxybutyric Acd 1.26 mg/dl (0.2-2.81) 11/24/19 19:33 Urine Color Yellow 11/24/19 20:40 Urine Appearance Clear (Clear) 11/24/19 20:40 Urine pH 6.5 (4.5-7.5) 11/24/19 20:40 Ur Specific [place] 1.021 (1.000-1.030) 11/24/19 20:40 Urine Protein Trace (Negative) H 11/24/19 20:40 Urine Glucose (UA) 3+ (Negative) H 11/24/19 20:40 Urine Ketones Negative (Negative) 11/24/19 20:40 Urine Blood Negative (Negative) 11/24/19 20:40 Urine Nitrite Negative (Negative) 11/24/19 20:40 Urine Bilirubin Negative (Negative) 11/24/19 20:40 Urine Urobilinogen Negative (Negative) 11/24/19 20:40 Ur Leukocyte Esterase Trace (Negative) H 11/24/19 20:40 Urine WBC (Auto) 1-5 /hpf (0-5) 11/24/19 20:40 Urine RBC (Auto) 0-4 /hpf (0-4) 11/24/19 20:40 U Hyaline Cast (Auto) 0 /lpf (0-5) 11/24/19 20:40 U Epithel Cells (Auto) 20-30 /lpf (0-5) H 11/24/19 20:40 Urine Bacteria (Auto) Negative (Negative) 11/24/19 20:40 Diagnostic Findings [place], [place] [phone] CT Scan Report Patient: ROBERT QUINTANILLA Date: 11/24/19 MR#: [id number] [facility] Acct ID:[id number]: Date: [address] [place] [address] Zip: [place] [address] Age: 63Location: ED Sex: F Room/Bed: Att Phy:Diagnosis: ABD BRUISING Arely Phy: Glenny Correa CRNPService Date: 11/24/19 Fam Phy: Glenny Correa CRNPInterpreting Phy: Erik Corea MD Admit Phy: Ordering Phy: Santiago Robles M.D. cc: ~ CT SCAN OF THE ABDOMEN AND PELVIS WITHOUT IV CONTRAST CLINICAL HISTORY: Generalized abdominal pain. Known rectus sheath hematoma. COMPARISON STUDY: Abdominal CT dated 11/20/2019 and 10/11/2019. TECHNIQUE: CT scan of the abdomen and pelvis is performed from the lung bases to the proximal femora. Images are reviewed in the axial, sagittal, and coronal planes. IV contrast was not administered for this examination as per the referring clinician. A dose lowering technique was utilized adhering to the principles of ALARA. CT DOSE: 1768.27 mGy.cm FINDINGS: Lung bases: The heart is normal in size and without pericardial effusion. Pacemaker leads are noted. There are coronary artery calcifications. The lung b ases are clear noting bibasilar scarring/atelectasis. Liver: The unenhanced liver is normal in size, contour, and attenuation. There is no intrahepatic biliary ductal dilatation. Gallbladder: Surgically absent noting clips in the gallbladder fossa. Spleen: Normal in size and attenuation. Pancreas: The unenhanced pancreas is moderately atrophic and grossly unremarkable.. Adrenal glands: Unremarkable. Kidneys: The unenhanced kidneys are atrophic and without hydronephrosis. There are no renal calculi identified. There is no evidence of contour deforming renal mass lesion. Foci of cortical scarring are noted in both kidneys. Abdominal vasculature: There is advanced atherosclerotic calcification and mild ectasia of the abdominal aorta. Bilateral iliac artery stents are in place. Bowel: There is a large left lateral abdominal hernia which contains nonobstructed loops of bowel. No bowel obstruction is seen. Fecal retention is noted in the colon. Cecal inflammation has almost completely resolved. The appendix is well-visualized and normal. Peritoneum: There is no intraperitoneal free air or abdominal ascites. A right rectus sheath hematoma has modestly increased in size from 11/20/2019, and measures up to 3.3 cm in AP diameter. Surrounding inflammatory change is noted. Lymphadenopathy: None. Pelvic viscera: The the bladder wall appears circumferentially thickened. The uterus and adnexa are normal as visualized. Postoperative change is noted in the right groin. Skeletal structures: The skeletal structures are osteopenic. Moderate lumbosacral spondylosis is observed. Sclerotic change is noted in the sacroiliac joints. No lytic or blastic lesions are seen. IMPRESSION: 1. A right rectus sheath hematoma with surrounding inflammation has modestly increased in size from 11/20/2019. 2. The bladder wall appears circumferentially thickened. Correlation with clinical findings and urinalysis will be required. 3. There is a large left lateral abdominal wall hernia which contains nonobstructed bowel loops. 4. Inflammatory change of the cecum has almost completely resolved from prior studies. 5. Additional findings as above. ACT 112: Negative or not required by law. Electronically signed by: Erik Corea M.D. 11/24/2019 8:19 PM Dictated: 11/24/192006 Transcribed: 11/24/192006 Code Status & VTE Plan Code Status Full code VTE Prophylaxis Plan VTE Prophylaxis will be ordered: Yes PG Care Time/CCT Total # of Minutes Spent Total Time Spent with Patient: Total time spent is greater than 50% in coordination of care (as documented) at patient's floor/unit and/or counseling patient: Coding Level of Care Code 04591 OBS Care - Level 3 Diagnoses Rectus sheath hematoma S30.1XXA Encounter type: initial encounter CAD (coronary artery disease) I25.10 Coronary Disease-Associated Artery/Lesion type: [place] artery [place] vs. transplanted heart: [place] heart Associated angina: without angina PAD (peripheral artery disease) I73.9 Combined systolic and diastolic heart failure I50.42 Heart failure chronicity: chronic HTN (hypertension) I10 Hypertension type: essential hypertension Diabetes mellitus type 2, uncontrolled E11.65 Glycemic state: with hyperglycemia Status cardiac pacemaker Z95.0 CKD (chronic kidney disease) stage 3, GFR 30-59 ml/min N18.3 COPD (chronic obstructive pulmonary disease) J44.9 COPD type: unspecified COPD Mild cognitive impairment G31.84 Depression with anxiety F41.8 (1) Rectus sheath hematoma Encounter type: initial encounter Qualified Code(s): S30.1XXA - Contusion of abdominal wall, initial encounter (2) Diabetes mellitus type 2, uncontrolled Glycemic state: with hyperglycemia Qualified Code(s): E11.65 - Type 2 diabetes mellitus with hyperglycemia (3) Combined systolic and diastolic heart failure Heart failure chronicity: chronic Qualified Code(s): I50.42 - Chronic combined systolic (congestive) and diastolic (congestive) heart failure (4) CAD (coronary artery disease) Coronary Disease-Associated Artery/Lesion type: [place] artery [place] vs. transplanted heart: [place] heart Associated angina: without angina Qualified Code(s): I25.10 - Atherosclerotic heart disease of [place] coronary artery without angina pectoris (5) COPD (chronic obstructive pulmonary disease) COPD type: unspecified COPD Qualified Code(s): J44.9 - Chronic obstructive pulmonary disease, unspecified (6) HTN (hypertension) Hypertension type: essential hypertension Qualified Code(s): I10 - Essential (primary) hypertension
[2019-11-25] MEDS ORDERED: ALBUT/IPRATROP 3MG/0.5MG NEB 3 ML VIAL INH PRN (00:37)
[2019-11-25] MEDS ORDERED: DEXTROSE 50% 50 ML SYRINGE IV PRN (00:37)
[2019-11-25] MEDS ORDERED: ALUMINUM/MAGNESIUM SUSP 30 ML UDC PO PRN (00:37)
[2019-11-25] MEDS ORDERED: ACETAMINOPHEN 325 MG TAB PO PRN (00:37)
[2019-11-25] MEDS ORDERED: LORazepam 0.5 MG TAB PO PRN (00:37)
[2019-11-25] MEDS ORDERED: CARBOHYDRATES FOR HYPOGLYCEMIA PO PRN (00:37)
[2019-11-25] MEDS ORDERED: ONDANSETRON INJ 2 MG/ML 2 ML VIAL IV PRN (00:37)
[2019-11-25] MEDS ORDERED: GLUCAGON FOR INJ 1 MG VIAL SQ PRN (00:37)
[2019-11-25] MEDS ORDERED: GLUCOSE 10 TABS/TUBE PO PRN (00:37)
[2019-11-25] MEDS ORDERED: GLUCOSE 40% GEL 15 GM TUBE PO PRN (00:37)
[2019-11-25] MEDS ORDERED: ALBUTEROL HFA 8 GM INHALER INH PRN (00:37)
[2019-11-25] MEDS ORDERED: MAGNESIUM HYDROXIDE SUSP 30 ML UDC PO PRN (00:37)
[2019-11-25] MEDS ORDERED: GUAIFENESIN/DEXTROM SYRUP 200MG/20MG 10ML UDC PO PRN (00:37)
[2019-11-25] MEDS ORDERED: NITROGLYCERIN SL 0.4 MG/TAB TAB SL PRN (00:37)
[2019-11-25 01:10] LABS: Hemoglobin 11.3 g/dL (12.0-16.0)
[2019-11-25] MEDS: TICAGRELOR 90 MG TAB PO SCH ×3 (01:31→20:30)
[2019-11-25] MEDS: CEFDINIR 300 MG CAP PO SCH ×3 (01:31→20:28)
[2019-11-25] MEDS: METOPROLOL TARTRATE 100 MG TAB PO SCH ×3 (01:31→20:29)
[2019-11-25] MEDS: RANOLAZINE 500 MG ER TAB PO SCH ×3 (01:32→20:28)
[2019-11-25] MEDS: UMECLIDINIUM BROMIDE 62.5MCG/BLISTER 7 PUFFS/INHALER INH SCH (08:11)
[2019-11-25] MEDS: PREGABALIN 75 MG CAP PO SCH ×3 (08:11→20:32)
[2019-11-25] MEDS: dilTIAZem HCL 240 MG CAPCR PO SCH (08:13)
[2019-11-25] MEDS: DULOXETINE HCL 60 MG CAP PO SCH (08:13)
[2019-11-25] MEDS: MAGNESIUM OXIDE 400 MG TAB PO SCH (08:13)
[2019-11-25] MEDS: ROSUVASTATIN CALCIUM 20 MG TAB PO SCH (08:14)
[2019-11-25] MEDS: INSULIN ASPART 100 UNITS/ML 3 ML PEN SC SCH ×4 (08:17→20:25)
[2019-11-25] MEDS: HYDROmorphone INJ 0.5 MG/0.5 ML SYR IV PRN ×3 (08:30→22:29)
[2019-11-25 08:58] LABS: Basophils # (auto) 0.04 K/uL (0-0.2); Basophils % (auto) 0.4 %; Eosinophils # (auto) 0.46 K/uL (0-0.5); Eosinophils % (auto) 5.1 %; Hematocrit (blood only) 33.9 % (37-47); Hemoglobin 10.8 g/dL (12.0-16.0); Immature Granulocytes # (auto) 0.02 K/uL (0.00-0.02); Immature Granulocytes % (auto) 0.2 %; Lymphocytes # (auto) 1.25 K/uL (1.2-3.4); Lymphocytes % (auto) 13.7 %; Mean Corpuscular Hemoglobin 27.6 pg (25-34); Mean Corpuscular Hgb Conc 31.9 g/dL (32-36); Mean Corpuscular Volume 86.5 fL (80-100); Mean Platelet Volume 12.7 fL (7.4-10.4); Monocytes # (auto) 1.04 K/uL (0.11-0.59); Monocytes % (auto) 11.4 %; Neutrophils # (auto) 6.29 K/uL (1.4-6.5); Neutrophils % (auto) 69.2 %; Platelet Count 181 K/uL (130-400); RDW Coefficient of Variation 17.6 % (11.5-14.5); RDW Standard Deviation 55.4 fL (36.4-46.3); Red Blood Count 3.92 M/uL (4.2-5.4)
[2019-11-25 09:12] LABS: INR 1.3 (0.9-1.1); Prothrombin Time 13.6 Seconds (9.0-12.0)
[2019-11-25 09:27] LABS: Albumin Level 2.8 gm/dl (3.4-5.0); BUN Creatinine Ratio 12.5 (10-20); Calcium 9.4 mg/dl (8.5-10.1); Creatinine Clr Calc Pharmacy 50.7 ml/min; Est GFR (African American) 47.5; Magnesium 1.9 mg/dl (1.8-2.4); Potassium 3.9 mmol/L (3.5-5.1)
[2019-11-25 09:29] LABS: Albumin Globulin Ratio 0.8 (0.9-2); Bilirubin,Total 1.1 mg/dl (0.2-1); Globulin 3.5 gm/dl (2.5-4.0); Total Protein 6.3 gm/dl (6.4-8.2)
[2019-11-25 09:45] LABS: Estimated Average Glucose 189 mg/dl; Hemoglobin A1C 8.2 % (4.5-5.6)
[2019-11-25 12:41] LABS: Hematocrit (blood only) 32.5 % (37-47); Hemoglobin 10.4 g/dL (12.0-16.0)
--- NOTE | 2019-11-25 14:56 | Hospitalist Progress Note ---
Date of Service November 25, 2019 Assessment & Plan (1) Rectus sheath hematoma: CT abdomen/pelvis on 11/23 showed increasing size rectus sheath hematoma. No trauma noted, however, patient did go on a trip. - Hold Xarelto. - Continue Brilinta and Ranexa. - Check AM CBC (2) CAD (coronary artery disease): No chest pain or sign of ischemic change. - Hold Xarelto. - Continue Brilinta, diltiazem, metoprolol tartrate. (3) PAD (peripheral artery disease): Recent right internal carotid stenting at [facility] on 11/05/2019. Was discharged on Xarelto for PAD, carotid stenosis, and SMA stenosis. - Will restart Xarelto as quickly as safely possible. - Continue ticagrelor (4) Diabetes mellitus type 2, uncontrolled: Patient with hyperglycemia upon presentation, post-steroids. In the acute setting, will hold oral medications glimepiride and Januvia. - Sliding scale insulin - Monitor (5) HTN (hypertension): BP is 150/80 today. - Continue beta-danae, calcium channel danae (6) Status cardiac pacemaker: No major concerns. - No inpatient needs (7) CKD (chronic kidney disease) stage 3, GFR 30-59 ml/min: Creatinine 1.48 upon admission, with range 1.27-1.68. - Monitor (8) COPD (chronic obstructive pulmonary disease): Breathing appears at baseline. - Continue usual albuterol inhaler and DuoNebs as needed. (9) Depression with anxiety: - Continue lorazepam as needed, pregabalin, and duloxetine. (10) DVT prophylaxis: SCDs - Holding heparin give her hematoma Admission and Anticipated Discharge Date Admission Date: November 24, 2019 Subjective Still with some pain in the lower abdominal area, but overall doing well. Reports no fevers/chills, chest pain, shortness of breath, abdominal pain, nausea, or vomiting. Physical Exam Constitutional: WD/WN, vitals as above Eyes: EOM intact bilaterally; no conjunctival abnormality ENMT: external ear and nose normal, oropharynx normal Neck: trachea midline, no thyromegaly normal visual inspection Respiratory: normal respiratory effort, lungs clear to auscultation no respiratory distress Cardiovascular: RRR, no murmur, no edema Gastrointestinal (Abdomen): Inspection/Auscultation: abdomen normal to inspection; abdomen not distended Musculoskeletal: no cyanosis or clubbing, extremities motor strength 5/5 Skin: + ecchymosis (Central abdominal area.) Neurologic: moves all extremities and awake Psychiatric: Orientation: alert, oriented to person and cooperative Results & Data ([facility]) Vital Signs (Past 12 Hours) Vital Signs Temp Pulse Pulse Resp BP BP Pulse Ox 11/25/19 11:38 36.6 C 87 18 177/74 H 94 11/25/19 07:32 66 11/25/19 07:20 36.6 C 78 18 164/83 H 94 11/25/19 05:37 36.7 C 76 20 168/78 H 95 PG Care Time/CCT Total # of Minutes Spent Total Time Spent with Patient: Total time spent is greater than 50% in coordination of care (as documented) at patient's floor/unit and/or counseling patient: Coding Level of Care Code 18486 Subseq Hosp Care Lvl 2 Diagnoses Rectus sheath hematoma S30.1XXA Encounter type: initial encounter CAD (coronary artery disease) I25.10 Coronary Disease-Associated Artery/Lesion type: [place] artery [place] vs. transplanted heart: [place] heart Associated angina: without angina PAD (peripheral artery disease) I73.9 Diabetes mellitus type 2, uncontrolled E11.65 Glycemic state: with hyperglycemia HTN (hypertension) I10 Hypertension type: essential hypertension Status cardiac pacemaker Z95.0 CKD (chronic kidney disease) stage 3, GFR 30-59 ml/min N18.3 COPD (chronic obstructive pulmonary disease) J44.9 COPD type: unspecified COPD Depression with anxiety F41.8 DVT prophylaxis Z29.9 (1) Rectus sheath hematoma Encounter type: initial encounter Qualified Code(s): S30.1XXA - Contusion of abdominal wall, initial encounter (2) CAD (coronary artery disease) Coronary Disease-Associated Artery/Lesion type: [place] artery [place] vs. transplanted heart: [place] heart Associated angina: without angina Qualified Code(s): I25.10 - Atherosclerotic heart disease of [place] coronary artery without angina pectoris (3) HTN (hypertension) Hypertension type: essential hypertension Qualified Code(s): I10 - Essential (primary) hypertension (4) Diabetes mellitus type 2, uncontrolled Glycemic state: with hyperglycemia Qualified Code(s): E11.65 - Type 2 diabetes mellitus with hyperglycemia (5) COPD (chronic obstructive pulmonary disease) COPD type: unspecified COPD Qualified Code(s): J44.9 - Chronic obstructive pulmonary disease, unspecified
[2019-11-25] MEDS ORDERED: PRAMIPEXOLE DIHYDROCHLO 0.5 MG TAB PO SCH (21:00)
[2019-11-26 06:49] LABS: Basophils # (auto) 0.04 K/uL (0-0.2); Basophils % (auto) 0.4 %; Hematocrit (blood only) 32.8 % (37-47); Hemoglobin 10.4 g/dL (12.0-16.0); Immature Granulocytes # (auto) 0.07 K/uL (0.00-0.02); Immature Granulocytes % (auto) 0.7 %; Lymphocytes # (auto) 1.54 K/uL (1.2-3.4); Lymphocytes % (auto) 15.4 %; Mean Corpuscular Hemoglobin 27.5 pg (25-34); Mean Corpuscular Hgb Conc 31.7 g/dL (32-36); Mean Corpuscular Volume 86.8 fL (80-100); Mean Platelet Volume 13.3 fL (7.4-10.4); Monocytes # (auto) 1.16 K/uL (0.11-0.59); Monocytes % (auto) 11.6 %; Neutrophils # (auto) 6.72 K/uL (1.4-6.5); Neutrophils % (auto) 66.9 %; Platelet Count 188 K/uL (130-400); RDW Coefficient of Variation 17.5 % (11.5-14.5); RDW Standard Deviation 55.2 fL (36.4-46.3); Red Blood Count 3.78 M/uL (4.2-5.4); White Blood Count 10.03 K/uL (4.8-10.8)
[2019-11-26 07:12] LABS: INR 1.1 (0.9-1.1); Prothrombin Time 11.8 Seconds (9.0-12.0)
[2019-11-26 07:34] LABS: Albumin Globulin Ratio 0.7 (0.9-2); Albumin Level 2.5 gm/dl (3.4-5.0); Bilirubin,Total 1.4 mg/dl (0.2-1); Calcium 8.8 mg/dl (8.5-10.1); Creatinine Clr Calc Pharmacy 46.8 ml/min; Est GFR (African American) 42.9; Globulin 3.5 gm/dl (2.5-4.0); Magnesium 2.1 mg/dl (1.8-2.4); Potassium 4.5 mmol/L (3.5-5.1)
[2019-11-26] MEDS: TICAGRELOR 90 MG TAB PO SCH (08:06)
[2019-11-26] MEDS: dilTIAZem HCL 240 MG CAPCR PO SCH (08:06)
[2019-11-26] MEDS: METOPROLOL TARTRATE 100 MG TAB PO SCH (08:06)
[2019-11-26] MEDS: ROSUVASTATIN CALCIUM 20 MG TAB PO SCH (08:06)
[2019-11-26] MEDS: DULOXETINE HCL 60 MG CAP PO SCH (08:06)
[2019-11-26] MEDS: RANOLAZINE 500 MG ER TAB PO SCH (08:07)
[2019-11-26] MEDS: PREGABALIN 75 MG CAP PO SCH (08:07)
[2019-11-26] MEDS: INSULIN ASPART 100 UNITS/ML 3 ML PEN SC SCH ×2 (08:07→12:01)
[2019-11-26] MEDS: MAGNESIUM OXIDE 400 MG TAB PO SCH (08:07)
[2019-11-26] MEDS: CEFDINIR 300 MG CAP PO SCH (08:07)
[2019-11-26] MEDS: UMECLIDINIUM BROMIDE 62.5MCG/BLISTER 7 PUFFS/INHALER INH SCH (08:07)
[2019-11-26 12:32] VITALS: BP 118/63; PULSE 71; TEMP 99; O2SAT 93
--- NOTE | 2019-11-26 16:02 | Discharge Summary ---
Date of Service November 26, 2019 Admission HPI Per Admitting Provider The patient is a 63-year-old female with a past medical history including recent CEA, colitis, acute on chronic kidney disease, branch retinal artery occlusion, diabetic foot ulcer, sick sinus syndrome, moderate COPD, diabetes mellitus, non- STEMI, previous nicotine dependence, CAD, pacemaker presents, PAD, hyperlipidemia, combined systolic and diastolic heart failure, depression with anxiety, and known rectus sheath hematoma from previous admission from 11/19- 11/22/2019. She presents to the emergency department with worsening right lower quadrant pain and bruising after a trip earlier the day today. Work-up in e mergency department included a CT scan of the abdomen pelvis which showed increase in rectus sheath hematoma up to 3.[address] Robles from the ED spoke with [facility], who recommended that the patient be admitted and observed with frequent H&H's, holding Xarelto and continuing Brilinta, and repeat CT scan in the a.m. If there is worsening over the evening, the patient will need to be transferred to [facility]. Principal Diagnosis Rectus sheath hematoma Discharge Exam Constitutional WD/WN, vitals as above Eyes EOM intact bilaterally; no conjunctival abnormality ENMT external ear and nose normal, oropharynx normal Neck trachea midline, no thyromegaly normal visual inspection Respiratory normal respiratory effort, lungs clear to auscultation no respiratory distress Cardiovascular RRR, no murmur, no edema Gastrointestinal (Abdomen) Inspection/Auscultation: abdomen normal to inspection; abdomen not distended Musculoskeletal no cyanosis or clubbing, extremities motor strength 5/5 Skin + ecchymosis (Central abdominal area.) Neurologic moves all extremities and awake Psychiatric Orientation: alert, oriented to person and cooperative Discharge Data Allergies Allergy/AdvReac Type Severity Reaction Status Date / Time clopidogrel [From Plavix] AdvReac Mild Verified 11/26/19 15:59 Consultations 11/24/19 21:03 ED Decision to Admit Stat 11/25/19 00:37 Consult Case Management - Discharge Planning Routine Ordered Studies 11/24/19 19:12 CT abd pelvis wo con Stat Hospital Course (1) Rectus sheath hematoma: CT abdomen/pelvis on 11/23 showed increasing size rectus sheath hematoma. No trauma noted, however, patient did go on a trip. - Continue Brilinta and Ranexa. - Hold Xarelto forever -> NOTE: This was started by Dr. Clayton (her prior PCP) for PAD. However, Dr. Zarate her vascular surgeon did not think she needed this and preferred ASA & Brillenta. She was taken off Plavix because she was a non-responder on [facility] genetic testing. So, she should not go back to Plavix if it is felt that Brillenta is causing her shortness of breath. At this point, she is at baseline breathing, so I don't think it is causing much shortness of breath. - I told her to wait 7 days to start her aspirin 81mg to avoid rebleed of the hematoma. (2) CAD (coronary artery disease): No chest pain or sign of ischemic change. - Hold Xarelto as above. - Continue Brilinta, diltiazem, metoprolol tartrate. (3) PAD (peripheral artery disease): Recent right internal carotid stenting at [facility] on 11/05/2019. Was discharged on Xarelto for PAD, carotid stenosis, and SMA stenosis. - Continue ticagrelor - Start ASA 81 mg in 1 week (see above discussion) (4) Diabetes mellitus type 2, uncontrolled: Patient with hyperglycemia upon presentation, post-steroids. - Off steroids, sugars were better. Return to home regimen. (5) HTN (hypertension): BP is 150/80 today. - Continue beta-danae, calcium channel danae (6) Status cardiac pacemaker: No major concerns. - No inpatient needs (7) CKD (chronic kidney disease) stage 3, GFR 30-59 ml/min: Creatinine 1.48 upon admission, with range 1.27-1.68. - Monitor (8) COPD (chronic obstructive pulmonary disease): Breathing appears at baseline. - Continue usual albuterol inhaler and DuoNebs as needed. (9) Depression with anxiety: - Continue lorazepam as needed, pregabalin, and duloxetine. (10) DVT prophylaxis: SCDs - Holding heparin give her hematoma (11) Plavix resistance: Total Time Total Time Spent Total Time Spent (In Minutes): 35 Discharge Plan Discharge Items Patient Disposition: Home - Self-Care Reason For Visit: RECTUS SHEATH HEMATOMA, ANEMIA Discharge Diagnosis: Rectus sheath hematoma Activity: Resume your previous activity Non-emergency contact: Primary Care Provider Call non-emergency contact if: your symptoms worsen and your pain is worsening Follow-up/Referrals: Glenny Correa CRNP [Primary Care Provider] - (Please call Ms. Corrae's office this week to see if she needs to see you in the office. She may have you stay home if it's safer for you to do so.) Diet: Heart Healthy Addtl Attending Provider Instructions: You were admitted to the hospital with a bigger blood collection (hematoma) in your abdomen. This is likely from your Brillenta and Xarelto. Luckily, Dr. Zarate was ok stopping your Xarelto. Take your Brillenta as prescribed. Dr. Zarate actually felt that you would do better with about 3 months of baby aspirin (81mg) and Brillenta. Wait 1 week to start the baby aspirin, then take one baby aspirin every day for [address] Zarate tells you to stop. Please call Ms. Correa's office this week to see if she wants you to come in. Because of the coronavirus, she may just give you a later appointment in a month or so if you are doing well. Pending Studies at Discharge: No Stand-Alone Forms: My [facility] [employer], Smoking Cessation Medications and DC Order Prescriptions: Continued lorazepam 0.5 mg tablet 0.5 mg PO BID PRN (Reason: Anxiety) RF: 0 ipratropium-albuterol 0.5 mg-3 mg(2.5 mg base)/3 mL solution for nebulization 3 ml INH Q4H PRN (Reason: shortness of breath or wheezing) Qty: 90 RF: 2 glimepiride 1 mg tablet 1 mg PO QAM Qty: 90 RF: 3 ranolazine [Ranexa] 500 mg tablet extended release 12 hr 500 mg PO BID Qty: 180 RF: 3 rosuvastatin 40 mg tablet 40 mg PO QAM Qty: 90 RF: 3 diltiazem HCl 240 mg capsule,extended release 24hr 240 mg PO QAM Qty: 90 RF: 3 albuterol sulfate [Ventolin HFA] 90 mcg/actuation HFA aerosol inhaler 2 puffs INH Q6H PRN (Reason: shortness of breath or wheezing) Qty: 8 RF: 2 pregabalin [Lyrica] 75 mg capsule 75 mg PO TID Qty: 90 RF: 3 nitroglycerin 0.4 mg tablet, sublingual 0.4 mg SL Q5M PRN (Reason: Angina) Qty: 1 RF: 0 pramipexole 1 mg tablet 1 mg PO HS Qty: 90 RF: 1 metoprolol tartrate 100 mg Tablet 100 mg PO BID RF: 0 magnesium oxide 400 mg (241.3 mg magnesium) tablet 400 mg PO QAM RF: 0 duloxetine 60 mg capsule,delayed release(DR/EC) 60 mg PO QAM RF: 0 Spiriva Respimat 2.5 mcg/actuation mist 2 puffs INH QAM RF: 0 Brilinta 90 mg tablet 90 mg PO BID RF: 0 Robitussin Cough-Chest Noé DM 5-100 mg/5 mL Liquid 10 ml PO Q6H PRN (Reason: cough) Qty: 237 RF: 0 Januvia 50 mg tablet 50 mg PO DAILY Qty: 30 RF: 0 Discontinued cefdinir 300 mg capsule 300 mg PO BID Qty: 14 RF: 0 (DME) Over Night Pulse OX Misc See Dose Instructions .ROUTE .MEDSUPPLY Qty: 1 RF: 0 Xarelto 20 mg tablet 20 mg PO QAM RF: 0 Discharge Orders: Discharge Order (Routine); Ordered 11/26/19 Ordered By: Deep Dick Admission Data Admit Date/Time: 11/24/19 23:01 Attending Provider: Deep Dick Admit Provider: Edgar Clarke Primary Care Provider: Glenny Correa Other Providers: Deep Dick Other Interventions: Discharge Summary Assessment (RN) Last Done: 11/26/19 11:22 DC Date/Time DO NOT enter until pt leaves facility: 11/26/19 12:39 Coding Level of Care Code 06839 OBS Care - Discharge Diagnoses Rectus sheath hematoma S30.1XXA Encounter type: initial encounter CAD (coronary artery disease) I25.10 Coronary Disease-Associated Artery/Lesion type: [place] artery [place] vs. transplanted heart: [place] heart Associated angina: without angina PAD (peripheral artery disease) I73.9 Diabetes mellitus type 2, uncontrolled E11.65 Glycemic state: with hyperglycemia HTN (hypertension) I10 Hypertension type: essential hypertension Status cardiac pacemaker Z95.0 CKD (chronic kidney disease) stage 3, GFR 30-59 ml/min N18.3 COPD (chronic obstructive pulmonary disease) J44.9 COPD type: unspecified COPD Depression with anxiety F41.8 DVT prophylaxis Z29.9 Plavix resistance Z78.9
== END 2019-11-26 12:39 | disposition home or self-care (01) ==
LOC: ED 18:48 → 2N 18:48 → SUATTDRO 23:01 → 2N 23:39

== ENCOUNTER 2020-03-07 10:04 | Inpatient (IN) ==
[2020-03-07 10:53] LABS: Basophils # (auto) 0.03 K/uL (0-0.2); Basophils % (auto) 0.2 %; Eosinophils # (auto) 0.17 K/uL (0-0.5); Eosinophils % (auto) 1.4 %; Hematocrit (blood only) 31.4 % (37-47); Hemoglobin 9.5 g/dL (12.0-16.0); Immature Granulocytes # (auto) 0.02 K/uL (0.00-0.02); Immature Granulocytes % (auto) 0.2 %; Lymphocytes # (auto) 1.88 K/uL (1.2-3.4); Lymphocytes % (auto) 15.3 %; Mean Corpuscular Hemoglobin 26.5 pg (25-34); Mean Corpuscular Hgb Conc 30.3 g/dL (32-36); Mean Corpuscular Volume 87.5 fL (80-100); Mean Platelet Volume 13.6 fL (7.4-10.4); Monocytes # (auto) 0.94 K/uL (0.11-0.59); Monocytes % (auto) 7.7 %; Neutrophils # (auto) 9.22 K/uL (1.4-6.5); Neutrophils % (auto) 75.2 %; Platelet Count 158 K/uL (130-400); RDW Coefficient of Variation 17.9 % (11.5-14.5); RDW Standard Deviation 55.5 fL (36.4-46.3); Red Blood Count 3.59 M/uL (4.2-5.4); White Blood Count 12.26 K/uL (4.8-10.8)
--- NOTE | 2020-03-07 11:13 | XRay Report ---
LEFT FOOT 3 VIEWS HISTORY: L foot ecchymosis, DM COMPARISON: None. FINDINGS: There is no fracture or dislocation. Dorsal soft tissue swelling. Plantar and posterior teagan caneal spurs. No erosive changes to suggest osteomyelitis. Mild degenerative changes within the DIP, PIP, and first MTP joints. The Lisfranc joint appears intact. No radiopaque foreign bodies. IMPRESSION: Dorsal soft tissue swelling. No fractures. ACT 112: Negative or not required by law. Electronically signed by: Dash Nolasco M.D. 03/07/2020 11:11 AM
[2020-03-07 11:16] LABS: Alanine Aminotransferase 29 U/L (12-78); Albumin Level 2.9 gm/dl (3.4-5.0); Aspartate Aminotransferase 30 U/L (15-37); BUN Creatinine Ratio 10.6 (10-20); Blood Urea Nitrogen 17 mg/dl (7-18); Calcium 8.6 mg/dl (8.5-10.1); Carbon Dioxide 26 mmol/L (21-32); Chloride 104 mmol/L (98-107); Est GFR (Non-African American) 34.5; Glucose 141 mg/dl (70-99); Potassium 4.1 mmol/L (3.5-5.1); Sodium 137 mmol/L (136-145)
[2020-03-07 11:27] LABS: Albumin Globulin Ratio 0.8 (0.9-2); Alkaline Phosphatase 159 U/L (45-117); Bilirubin,Total 0.5 mg/dl (0.2-1); Globulin 3.9 gm/dl (2.5-4.0); Thyroid Stimulating Hormone 0.845 uIu/ml (0.300-4.500); Total Protein 6.8 gm/dl (6.4-8.2)
--- NOTE | 2020-03-07 12:33 | Electrocardiogram Report ---
Test Reason : Blood Pressure : / mmHG Vent. Rate : 075 BPM Atrial Rate : 075 BPM P-R Int : 194 ms QRS Dur : 056 ms QT Int : 408 ms P-R-T Axes : 077 026 049 degrees QTc Int : 455 ms Normal sinus rhythm Low voltage QRS Borderline ECG When compared with ECG of 09-DEC-2019 09:50, No significant change was found Confirmed by Isrrael Bacon ([id number]) on 03/07/2020 12:32:53 PM Referred By: REFERRED SELF Confirmed By:Bishnu Bacon
[2020-03-07] MEDS ORDERED: SODIUM CHLORIDE 0.9% 250 ML IV PRN (12:34)
--- NOTE | 2020-03-07 13:38 | History & Physical Report ---
Date of Service March 07, 2020 Assessment & Plan (1) Gastrointestinal bleed: Melena resolved prior to arrival. Transfuse 1 unit blood due to symptoms of shortness of breath on exertion and dizziness with Hgb <10 with extensive vascular disease. Repeat H&H, aim Hgb > 10. Continue on Xarelto as peripheral artery disease is high risk. (2) Swelling of left foot: No fracture on foot XR. Swelling mostly over distal dorsal aspect of foot. Ecchymosis over lateral ankle. No cellulitis. Ecchymosis present which suspect she has a soft tissue injury here which is slowly recovering. Multiple ecchymotic areas on top of toes suggests pressure from shoes may be contributing. Will get arterial duplex US given extensive history of peripheral artery disease however she does have a palpable DP pulse. Unlikely DVT as she is taking Xarelto and Brilinta. (3) PAD (peripheral artery disease): US duplex arterial left as above. Continue Xarelto, Brilinta, rosuvastatin (4) Uncontrolled type 2 diabetes mellitus, with long-term current use of insulin: HbA1C 10.1 [February 26], no need to repeat Consult pharmacy for glycemic control with basal bolus insulin regimen (5) Diabetic toe ulcer: Right sided 1st toe diabetic ulcer Consult wound care nurse (6) COPD, moderate: No acute exacerbation. Continue maintenance inhalers (7) Status cardiac pacemaker: (8) Depression with anxiety: (9) Restless legs: Pramipexole 1mg PO BID (10) CAD (coronary artery disease): Continue Brilinta, Xarelto, Metoprolol, rosuvastatin (11) HTN (hypertension): Continue usual doses of metoprolol and dilriazem (12) DVT prophylaxis: Continue Xarelto as above History of Present Illness Chief Complaint: Foot swelling, ecchymosis Primary Care Provider: MANUEL Middleton Kortney Sanz is a 64 year old female with a complex past medical history including carotid endarterectomy, peripheral artery disease, coronary artery disease with prior NSTEMI, combined chronic systolic and diastolic heart failure, colitis, chronic kidney disease, branch retinal artery occlusion, diabetic foot ulcer, sick sinus syndrome, moderate COPD, diabetes mellitus, previous smoker and recent rectus sheath hematoma who presents to the ER with left foot swelling, pain and ecchymosis. No known trauma. First noticed it 2-3 days ago, main pain on the top of her dorsal distal foot over swelling. Not wearing any new shoes. Getting more painful and black/blue over that time. She also notes having x3 bouts of melena three days ago and having increased dizziness and shortness of breath on exertion. She reports a tooth braking off prior to this and bleeding significantly. Yesterday she had a normal bowel movement. Denies any abdominal pain, nausea, vomiting, diarrhea or constipation. She denies any chest pain, palpitations. Orthopnea at baseline. She does note claudication with left side > right although this has been longstanding. Allergies Allergy/AdvReac Type Severity Reaction Status Date / Time clopidogrel [From Plavix] AdvReac Mild Verified 03/05/20 13:17 Home Medications Home Medications Medication Instructions Recorded Confirmed Type ipratropium 0.5 mg-albuterol 3 mg 3 ml INH Q4H PRN #90 ml 02/24/19 03/07/20 Rx (2.5 mg base)/3 mL nebulization soln nitroglycerin 0.4 mg sublingual 0.4 mg SL Q5M PRN #1 tab 06/08/19 03/07/20 History tablet diltiazem HCl 240 mg 240 mg PO QAM #90 cap 06/16/19 03/07/20 Rx capsule,extended release 24 hr Spiriva Respimat 2 puffs INH QAM 07/18/19 03/07/20 History duloxetine 60 mg PO QAM 07/18/19 03/07/20 History albuterol sulfate 90 mcg/actuation 2 puffs INH Q6H PRN #8 gm 10/08/19 03/07/20 Rx aerosol inhaler Robitussin Cough-Chest Noé DM 10 ml PO Q6H PRN #237 ml 11/22/19 03/07/20 Rx pregabalin 75 mg capsule 75 mg PO TID #90 cap 11/26/19 03/07/20 Rx lorazepam 0.5 mg tablet 0.5 mg PO BID PRN #60 tab 11/27/19 03/07/20 Rx magnesium oxide 400 mg (241.3 mg 400 mg PO QAM #90 tab 11/27/19 03/07/20 Rx magnesium) tablet inhalational spacing device #1 ea 12/17/19 03/07/20 Rx rosuvastatin 40 mg tablet 40 mg PO QAM #90 tab 01/30/20 03/07/20 Rx ticagrelor 90 mg tablet 90 mg PO BID #180 tab 02/11/20 03/07/20 Rx metoprolol tartrate 100 mg tablet 100 mg PO BID #180 tab 02/16/20 03/07/20 Rx pramipexole 1 mg tablet 1 mg PO BID #180 tab 03/01/20 03/07/20 Rx metformin 1,000 mg tablet 1,000 mg PO BID 03/05/20 03/07/20 History cannabidiol 100 mg PO Q2H 03/07/20 03/07/20 History insulin degludec [Tresiba 34 units SQ DAILY 03/07/20 03/07/20 History FlexTouch U-100] rivaroxaban [Xarelto] 20 mg PO DAILY 03/07/20 03/07/20 History Past Med/Surg History Medical History ANNETTE (acute kidney injury) Altered mental status Bulging discs Degenerative disc disease Depression with anxiety Hx of non-ST elevation myocardial infarction (NSTEMI) 05/2018 Hypokalemia Hyponatremia Hypoxia Medical marijuana use Metabolic encephalopathy Myocardial Infarction 05/2018 - [facility] Obesity Pacemaker 05/2015 - Sick sinus syndrome - Last checked 02/2019 ([facility]) - [employer] Plavix resistance Non-responder to Plavix per [place] genetic testing. Per Dr. Zarate, her vascular surgeon. Restless legs Rheumatoid arthritis Spinal stenosis Surgical History History of cardiac cath 05/2018 - MD - NO STENTS/ANGIOPLASTY - COLLATERAL CIRCULATION - FOLLOWS W/ DR. ERWIN History of carotid endarterectomy (Resolved) History of cataract surgery BILATERAL History of cholecystectomy History of intravascular stent placement Multiple stents in bilateral legs, left subclavian, left aortic mesenteric bypass, left carotid endarterectomy History of oral surgery History of tonsillectomy History of tooth extraction Family History Mother , Heart Disease Ruptured Appendix No problems noted. Father , with Vascular and Colon Can No problems noted. Sister No problems noted. Grandfather (Maternal) Family history of diabetes mellitus Social History Preferred Language: Kazakh Communication Ability: Effective Visual Impairment: No Limitations Design Analyst Required: No Beliefs That Will Affect Care: None marital status: Current Living Situation: Family Current Living Situation Comment: Lives with sister Feels Safe at Home: Yes Smoking Status: Former smoker Tobacco Type: cigarettes ; Cigarettes Per Day: 1 pack a day ; Second Hand Exposure: No ; Hx Alcohol Use: Yes Alcohol type: beer, wine and hard liquor Hx Substance Use: Yes substance use type: marijuana Substance Use Type Other:: "vaping THC" Last Used Substance: Hours (ago) Last Used Substance Other:: today 03/07/2020 Review of Systems 2 Review of Systems: All systems reviewed & are unremarkable except as noted in HPI & below Constitutional: + fatigue; no fever and no chills Eyes: no problem reported Respiratory: + dyspnea on exertion (when first standing up) Gastrointestinal: as per Subjective / HPI; no abdominal pain, no belching, no bloating, no heartburn, no nausea, no vomiting and no dysphagia Genitourinary: no dysuria, no difficulty urinating, no urinary frequency and no urinary hesitancy Integumentary: as per Subjective / HPI Physical Exam Constitutional: well developed and + morbidly obese; + not well nourished and no acute distress Eyes: + anicteric sclerae; normal pupil size ENMT: external ear and nose normal, oropharynx normal Neck: normal visual inspection and trachea midline Cardiovascular: Rate/Rhythm: regular rate and regular rhythm Heart Sounds: + murmur (2/6 LUSB) Vessels: dorsalis pedis pulses present (b/l equal) and radial pulses present; no JVD Extremities: + pedal edema (2+ to knees b/l equal); + abnormal capillary refill (reduced on right toes) and no calf tenderness Gastrointestinal (Abdomen): normal bowel sounds, soft, nontender, no hepatosplenomegaly Musculoskeletal: no cyanosis or clubbing, extremities motor strength 5/5 Skin: Ecchymosis distal and anterior to lateral malleolus. Mild ecchymosis present on dorsal aspect of IPJ of all right toes. Increased swelling of right foot > left especially over tender area over 2-4th distal MT Mildly erythematous over swelling but not bright or warm to suggest cellulitic and no skin opening Neurologic: moves all extremities and awake; no focal motor deficits and not confused Motor/Sensory: + sensory deficit (Stocking distribution numbness in ankles distally) Psychiatric: A+Ox3, euthymic affect Results & Data Results & Data ([facility]) Vital Signs (Past 12 Hours) Vital Signs Temp Pulse Pulse Resp BP BP Pulse Ox 03/07/20 13:23 36.5 C 75 16 147/73 H 100 03/07/20 13:08 36.5 C 79 16 118/86 92 03/07/20 12:17 78 20 136/91 98 03/07/20 10:12 36.9 C 75 16 115/71 96 Diagnostic Findings LEFT FOOT 3 VIEWS IMPRESSION: Dorsal soft tissue swelling. No fractures. ECG Indication: other (Anemia) Rate (beats per minute): 75 Rhythm: normal sinus Findings: no acute ischemic change Comparison ECG Date: from (December 09 2019) Change: no significant change Code Status & VTE Plan Code Status DNR/DNI as per patient wishes VTE Prophylaxis Plan VTE Prophylaxis will be ordered: Yes PG Care Time/CCT Total # of Minutes Spent Total Time Spent with Patient: Total time spent is greater than 50% in coordination of care (as documented) at patient's floor/unit and/or counseling patient: Coding Level of Care Code 70661 Initial Inpt Care Lvl 3 Diagnoses Gastrointestinal bleed K92.2 Swelling of left foot M79.89 PAD (peripheral artery disease) I73.9 Uncontrolled type 2 diabetes mellitus, with long-term current use of insulin E11.65; Z79.4 Diabetic toe ulcer E11.621; L97.509 COPD, moderate J44.9 Status cardiac pacemaker Z95.0 Depression with anxiety F41.8 Restless legs G25.81 CAD (coronary artery disease) I25.10 Associated angina: without angina Coronary Disease-Associated Artery/Lesion type: [place] artery [place] vs. transplanted heart: [place] heart HTN (hypertension) I10 Hypertension type: essential hypertension DVT prophylaxis Z29.9 (1) CAD (coronary artery disease) Associated angina: without angina Coronary Disease-Associated Artery/Lesion type: [place] artery [place] vs. transplanted heart: [place] heart Qualified Code(s): I25.10 - Atherosclerotic heart disease of [place] coronary artery without angina pectoris (2) HTN (hypertension) Hypertension type: essential hypertension Qualified Code(s): I10 - Essential (primary) hypertension
[2020-03-07] MEDS ORDERED: MAGNESIUM HYDROXIDE SUSP 30 ML UDC PO PRN (14:03)
[2020-03-07] MEDS ORDERED: ONDANSETRON INJ 2 MG/ML 2 ML VIAL IV PRN (14:03)
[2020-03-07] MEDS ORDERED: POLYETHYLENE (MIRALAX) 17 GM PACK PO PRN (14:03)
[2020-03-07] MEDS ORDERED: ALUMINUM/MAGNESIUM SUSP 30 ML UDC PO PRN (14:03)
[2020-03-07] MEDS ORDERED: ACETAMINOPHEN 325 MG TAB PO PRN (14:03)
[2020-03-07] MEDS ORDERED: NITROGLYCERIN SL 0.4 MG/TAB TAB SL PRN (15:34)
[2020-03-07] MEDS ORDERED: CANNABIDIOL PO SCH (15:34)
[2020-03-07] MEDS ORDERED: LORazepam 0.5 MG TAB PO PRN (15:34)
[2020-03-07] MEDS ORDERED: PHARMACY GLYCEMIC MGMT CONSULT PRN (16:36)
[2020-03-07 16:37] LABS: Appearance Urine Cloudy (Clear); Bacteria Urine Automated 2+ (Negative); Bilirubin Urine Negative (Negative); Blood Urine 1+ (Negative); Color Urine Yellow; Glucose Urine UA Negative (Negative); Ketones Urine Negative (Negative); Leukocyte Esterase Urine 2+ (Negative); Nitrite Urine Positive (Negative); Protein Urine 2+ (Negative); RBC Urine Automated 0-4 /hpf (0-4); Specific Gravity Urine 1.014 (1.000-1.030); Urobilinogen Urine Negative (Negative); WBC Urine Automated >30 /hpf (0-5); pH Urine 6.5 (4.5-7.5)
[2020-03-07] MEDS ORDERED: PATIENT'S HEIGHT AND/OR WEIGHT NEEDED SCH (16:45)
[2020-03-07] MEDS ORDERED: DEXTROSE 50% 50 ML SYRINGE IV PRN (17:00)
[2020-03-07] MEDS ORDERED: GLUCOSE 10 TABS/TUBE PO PRN (17:00)
[2020-03-07] MEDS ORDERED: CARBOHYDRATES FOR HYPOGLYCEMIA PO PRN (17:00)
[2020-03-07] MEDS ORDERED: GLUCOSE 40% GEL 15 GM TUBE PO PRN (17:00)
[2020-03-07] MEDS ORDERED: GLUCAGON FOR INJ 1 MG VIAL IM PRN (17:00)
[2020-03-07] MEDS: INSULIN ASPART 100 UNITS/ML 3 ML PEN SC SCH ×2 (17:16→21:02)
--- NOTE | 2020-03-07 17:28 | Emergency Department Note ---
History of Present Illness General Chief complaint: Swelling/Edema to Extremity Stated complaint: LT FOOT SWOLLEN,RED,BRUISED AND WARM Time Seen by Provider: 03/07/20 10:18 Source: patient Mode of arrival: ambulatory Limitations: no limitations History of Present Illness Provider complaint: Left foot swelling, bruising, recent GI bleed Maximum Pain Intensity: 5 This patient is a 64-year-old female who presents to the emergency department with complaints of left foot bruising and swelling. Patient states she does not know of any direct trauma. She states she has diabetic neuropathy however and does not always know when she has injured. Patient recently saw her primary care physician for melanotic stools. She is scheduled to have blood work done tomorrow. She states the melena has stopped and she thinks it may have been related to a tooth injury with subsequent bleeding last week. Of note the patient does take Brilinta and Xarelto. She has a history of multiple of vasculopathy and multiple bypasses. Patient denies any fevers, chills, chest pain or shortness of breath. She denies any significant abdominal pain, vomiting or diarrhea. Home Medications Home Medications Medication Instructions Recorded Confirmed Type ipratropium 0.5 mg-albuterol 3 mg 3 ml INH Q4H PRN #90 ml 02/24/19 03/07/20 Rx (2.5 mg base)/3 mL nebulization soln nitroglycerin 0.4 mg sublingual 0.4 mg SL Q5M PRN #1 tab 06/08/19 03/07/20 History tablet diltiazem HCl 240 mg 240 mg PO QAM #90 cap 06/16/19 03/07/20 Rx capsule,extended release 24 hr Spiriva Respimat 2 puffs INH QAM 07/18/19 03/07/20 History duloxetine 60 mg PO QAM 07/18/19 03/07/20 History albuterol sulfate 90 mcg/actuation 2 puffs INH Q6H PRN #8 gm 10/08/19 03/07/20 Rx aerosol inhaler Robitussin Cough-Chest Noé DM 10 ml PO Q6H PRN #237 ml 11/22/19 03/07/20 Rx pregabalin 75 mg capsule 75 mg PO TID #90 cap 11/26/19 03/07/20 Rx lorazepam 0.5 mg tablet 0.5 mg PO BID PRN #60 tab 11/27/19 03/07/20 Rx magnesium oxide 400 mg (241.3 mg 400 mg PO QAM #90 tab 11/27/19 03/07/20 Rx magnesium) tablet inhalational spacing device #1 ea 12/17/19 03/07/20 Rx rosuvastatin 40 mg tablet 40 mg PO QAM #90 tab 01/30/20 03/07/20 Rx ticagrelor 90 mg tablet 90 mg PO BID #180 tab 02/11/20 03/07/20 Rx metoprolol tartrate 100 mg tablet 100 mg PO BID #180 tab 02/16/20 03/07/20 Rx pramipexole 1 mg tablet 1 mg PO BID #180 tab 03/01/20 03/07/20 Rx metformin 1,000 mg tablet 1,000 mg PO BID 03/05/20 03/07/20 History cannabidiol 100 mg PO Q2H 03/07/20 03/07/20 History insulin degludec [Tresiba 34 units SQ DAILY 03/07/20 03/07/20 History FlexTouch U-100] rivaroxaban [Xarelto] 20 mg PO DAILY 03/07/20 03/07/20 History Allergies Allergy/AdvReac Type Severity Reaction Status Date / Time clopidogrel [From Plavix] AdvReac Mild Verified 03/05/20 13:17 Past Med/Surg History Medical History ANNETTE (acute kidney injury) Altered mental status Bulging discs Degenerative disc disease Depression with anxiety Hx of non-ST elevation myocardial infarction (NSTEMI) 05/2018 Hypokalemia Hyponatremia Hypoxia Medical marijuana use Metabolic encephalopathy Myocardial Infarction 05/2018 - [facility] Obesity Pacemaker 05/2015 - Sick sinus syndrome - Last checked 02/2019 ([facility]) - Medtronic Plavix resistance Non-responder to Plavix per [facility] genetic testing. Per Dr. Zarate, her vascular surgeon. Restless legs Rheumatoid arthritis Spinal stenosis Surgical History History of cardiac cath 05/2018 - [place] - NO STENTS/ANGIOPLASTY - COLLATERAL CIRCULATION - FOLLOWS W/ DR. ERWIN History of carotid endarterectomy (Resolved) History of cataract surgery BILATERAL History of cholecystectomy History of intravascular stent placement Multiple stents in bilateral legs, left subclavian, left aortic mesenteric bypass, left carotid endarterectomy History of oral surgery History of tonsillectomy History of tooth extraction Family History Mother , Heart Disease Ruptured Appendix No problems noted. Father , with Vascular and Colon Can No problems noted. Sister No problems noted. Grandfather (Maternal) Family history of diabetes mellitus Social History Preferred Language: Sami Communication Ability: Effective Visual Impairment: No Limitations [place] Setter Required: No Beliefs That Will Affect Care: None marital status: Current Living Situation: Family Current Living Situation Comment: Lives with sister Other Information That Helps Us Care for You: No Feels Safe at Home: Yes Safety Concerns: Feels Safe At This Time Smoking Status: Former smoker Tobacco Type: cigarettes ; Cigarettes Per Day: 1 pack a day ; Second Hand Exposure: No ; Hx Alcohol Use: Yes Alcohol type: beer, wine and hard liquor Hx Substance Use: Yes substance use type: marijuana Substance Use Type Other:: "vaping THC" Last Used Substance: Hours (ago) Last Used Substance Other:: today 03/07/2020 Review of Systems See HPI for pertinent positives & negatives. and A total of 10 systems reviewed and were otherwise negative Physical Exam Vital Signs Vital Signs - 24 hr 03/07/20 10:12 03/07/20 10:48 03/07/20 12:17 Temperature 36.9 C Temperature Source Oral Pulse Rate 75 Pulse Rate [Right Finger] 78 Pulse Rhythm Pulse Rhythm [Right Finger] Regular Pulse Strength Pulse Strength [Right Finger] Normal Respiratory Rate 16 20 Respiratory Effort / Characteristics Non-Labored Spontaneous Respiratory Depth Normal Blood Pressure 115/71 Blood Pressure [Right Arm] 136/91 Blood Pressure Mean 85 Blood Pressure Mean [Right Arm] 106 Blood Pressure Position Sitting Blood Pressure Position [Right Arm] Pulse Oximetry 96 98 Oxygen Delivery Method Room Air Room Air Room Air Oxygen Flow Rate Sepsis Recent Fever Within 48 Hours No Sepsis Action Taken by Nursing No Action Required 03/07/20 13:00 03/07/20 13:08 03/07/20 13:23 Temperature 36.5 C 36.5 C Temperature Source Oral Oral Pulse Rate 79 75 Pulse Rate [Right Finger] 80 Pulse Rhythm Regular Regular Pulse Rhythm [Right Finger] Regular Pulse Strength Normal Normal Pulse Strength [Right Finger] Normal Respiratory Rate 20 16 16 Respiratory Effort / Characteristics Non-Labored Spontaneous Respiratory Depth Normal Blood Pressure 118/86 147/73 H Blood Pressure [Right Arm] 158/81 H Blood Pressure Mean 96 97 Blood Pressure Mean [Right Arm] 106 Blood Pressure Position Blood Pressure Position [Right Arm] Lying Pulse Oximetry 96 92 100 Oxygen Delivery Method Room Air Oxygen Flow Rate 2 Sepsis Recent Fever Within 48 Hours Sepsis Action Taken by Nursing 03/07/20 14:00 Temperature Temperature Source Pulse Rate Pulse Rate [Right Finger] 78 Pulse Rhythm Pulse Rhythm [Right Finger] Regular Pulse Strength Pulse Strength [Right Finger] Normal Respiratory Rate 20 Respiratory Effort / Characteristics Non-Labored Spontaneous Respiratory Depth Normal Blood Pressure Blood Pressure [Right Arm] 160/97 H Blood Pressure Mean Blood Pressure Mean [Right Arm] 118 Blood Pressure Position Blood Pressure Position [Right Arm] Pulse Oximetry 100 Oxygen Delivery Method Room Air Oxygen Flow Rate Sepsis Recent Fever Within 48 Hours Sepsis Action Taken by Nursing Vital signs reviewed. General: Chronically ill-appearing 64-year-old female, in no significant distress. HEENT: No scleral icterus, PERRLA, neck supple. Atraumatic. Cardiovascular: Regular rate and rhythm, no extra sounds. Pulmonary: Clear to auscultation bilaterally, normal work of breathing. Abdomen: Soft, obese nontender, nondistended, positive bowel sounds. Musculoskeletal: Atraumatic, 2+ pitting edema to the bilateral lower extremi ties. Rectal: Guaiac negative brown stool, normal external mucosa. Neurologic: Patient awake alert and oriented x 3 Skin: Warm, dry, left foot with significant ecchymosis dorsally, mild tenderness diffusely but no specific deformity or point tenderness. No open wound. Course Administered Medications Insulin Aspart (Novolog Flexpen) 0 units SC ACHS [facility] Stop: 04/06/20 16:59 Last Admin: 03/07/20 17:16 Dose: 2 units Documented by: [id number] Cosigned by: [id number] Discontinued Medications Miscellaneous (Patient's Height And/Or Weight Needed) 1 ea N/A Q2H [facility] Stop: 04/06/20 16:44 Last Admin: 03/07/20 16:40 Dose: 1 ea Documented by: [id number] Critical Care Time Critical Care Time: Yes (32) I have personally spent greater than 32 minutes of critical care time in the direct management of this patient. This includes bedside care, interpretation of diagnostic studies, and testing, discussion with consultants, patient, and family members, and other required patient management activities. This 32 minutes is in excess of all separately billable procedures. Medical Decision Making Differential Diagnosis The differential diagnosis of this patient's presentation includes anemia, GI bleed, supratherapeutic anticoagulation, dehydration, trauma, DVT Medical Records Attestation: I reviewed the patient's medical records. Home Medications Current Medication List: was personally reviewed by me Laboratory Data Attestation: I reviewed the patient's lab results. Result diagrams: 03/07/20 10:41 03/07/20 10:41 Lab Results 03/07/20 03/07/20 03/07/20 Range/Units 10:41 10:41 10:41 WBC 12.26 H (4.8-10.8) K/uL RBC 3.59 L (4.2-5.4) M/uL Hgb 9.5 L (12.0-16.0) g/dL Hct 31.4 L (37-47) % MCV 87.5 (80-100) fL MCH 26.5 (25-34) pg MCHC 30.3 L (32-36) g/dL RDW Std Deviation 55.5 H (36.4-46.3) fL RDW Coeff of Tosin 17.9 H (11.5-14.5) % Plt Count 158 (130-400) K/uL MPV 13.6 H (7.4-10.4) fL Immature Gran % (Auto) 0.2 % Neut % (Auto) 75.2 % Lymph % (Auto) 15.3 % Gray % (Auto) 7.7 % Eos % (Auto) 1.4 % Baso % (Auto) 0.2 % Neut # (Auto) 9.22 H (1.4-6.5) K/uL Lymph # (Auto) 1.88 (1.2-3.4) K/uL Gray # (Auto) 0.94 H (0.11-0.59) K/uL Eos # (Auto) 0.17 (0-0.5) K/uL Baso # (Auto) 0.03 (0-0.2) K/uL Immature Gran # (Auto) 0.02 (0.00-0.02) K/uL Sodium 137 (136-145) mmol/L Potassium 4.1 (3.5-5.1) mmol/L Chloride 104 (98-107) mmol/L Carbon Dioxide 26 (21-32) mmol/L Anion Gap 7.0 (3-11) BUN 17 (7-18) mg/dl Creatinine 1.56 H (0.6-1.2) mg/dl Est Cr Clr Drug Dosing Not Reportable Est GFR ( Amer) 40.0 Est GFR (Non-Af Amer) 34.5 BUN/Creatinine Ratio 10.6 (10-20) Glucose 141 H (70-99) mg/dl Calcium 8.6 (8.5-10.1) mg/dl Total Bilirubin 0.5 (0.2-1) mg/dl AST 30 (15-37) U/L ALT 29 (12-78) U/L Alkaline Phosphatase 159 H (45-117) U/L Total Protein 6.8 (6.4-8.2) gm/dl Albumin 2.9 L (3.4-5.0) gm/dl Globulin 3.9 (2.5-4.0) gm/dl Albumin/Globulin Ratio 0.8 L (0.9-2) TSH 0.845 (0.300-4.500) uIu/ml POC Stool Occult Blood (Negative) Blood Type O Positive Antibody Screen NEGATIVE Crossmatch See Detail 03/07/20 Range/Units 11:04 WBC (4.8-10.8) K/uL RBC (4.2-5.4) M/uL Hgb (12.0-16.0) g/dL Hct (37-47) % MCV (80-100) fL MCH (25-34) pg MCHC (32-36) g/dL RDW Std Deviation (36.4-46.3) fL RDW Coeff of Tosin (11.5-14.5) % Plt Count (130-400) K/uL MPV (7.4-10.4) fL Immature Gran % (Auto) % Neut % (Auto) % Lymph % (Auto) % Gray % (Auto) % Eos % (Auto) % Baso % (Auto) % Neut # (Auto) (1.4-6.5) K/uL Lymph # (Auto) (1.2-3.4) K/uL Gray # (Auto) (0.11-0.59) K/uL Eos # (Auto) (0-0.5) K/uL Baso # (Auto) (0-0.2) K/uL Immature Gran # (Auto) (0.00-0.02) K/uL Sodium (136-145) mmol/L Potassium (3.5-5.1) mmol/L Chloride (98-107) mmol/L Carbon Dioxide (21-32) mmol/L Anion Gap (3-11) BUN (7-18) mg/dl Creatinine (0.6-1.2) mg/dl Est Cr Clr Drug Dosing Est GFR ( Amer) Est GFR (Non-Af Amer) BUN/Creatinine Ratio (10-20) Glucose (70-99) mg/dl Calcium (8.5-10.1) mg/dl Total Bilirubin (0.2-1) mg/dl AST (15-37) U/L ALT (12-78) U/L Alkaline Phosphatase (45-117) U/L Total Protein (6.4-8.2) gm/dl Albumin (3.4-5.0) gm/dl Globulin (2.5-4.0) gm/dl Albumin/Globulin Ratio (0.9-2) TSH (0.300-4.500) uIu/ml POC Stool Occult Blood Negative (Negative) Blood Type Antibody Screen Crossmatch Imaging Data Radiologist's Impression: LEFT FOOT 3 VIEWS HISTORY: L foot ecchymosis, DM COMPARISON: None. FINDINGS: There is no fracture or dislocation. Dorsal soft tissue swelling. Plantar and posterior calcaneal spurs. No erosive changes to suggest ost eomyelitis. Mild degenerative changes within the DIP, PIP, and first MTP joints. The Lisfranc joint appears intact. No radiopaque foreign bodies. IMPRESSION: Dorsal soft tissue swelling. No fractures. ACT 112: Negative or not required by law. Electronically signed by: Dash Nolasco M.D. 03/07/2020 11:11 AM Dictated: 03/07/201108 Transcribed: 03/07/201108 ECG Data Attestation: I personally reviewed and interpreted this ECG as follows: Indication: + other (dizziness) Rate (beats per minute): 75 Rhythm: + normal sinus ECG Intervals/blocks: + Normal QT-c; no Normal QRS (low voltage) ECG [place]: + Normal ECG ST segments: + Normal ST segments ECG Findings: no PACs and no PVCs Blood Pressure Blood Pressure Findings: Elevated blood pressure Blood Pressure Disposition: elevated BP felt to be situational MDM Narrative This patient was evaluated and appeared to be in no significant distress. IV access was obtained and laboratory work was drawn. An order for cardiac monitoring was placed and the patient is found to be in a normal sinus rhythm. Laboratory work reveals a hemoglobin of 9.5. X-ray of the left foot reveals no acute fracture. Patient was placed in a Rebel stocking to help diminish the swelling. There is no evidence of cellulitis at this time. Given the patient's multiple medical problems including vasculopathy on anticoagulation and antiplatelet agents, with a recent GI bleed, patient was consented for blood transfusion. 1 unit of PRBCs was ordered. Patient will be evaluated by the hospitalist service for further management. She is aware of this plan and agrees. Impression & Plan Anemia, Diabetic vasculopathy Discharge Plan Visit Data *Final* Discharge Date/Time: 03/07/20 14:56 Chief Complaint: Swelling/Edema to Extremity Stated Complaint: LT FOOT SWOLLEN,RED,BRUISED AND WARM ED Provider: Kim Rojo Discharge Problem: Anemia, Diabetic vasculopathy Patient Disposition: Admitted As Inpatient Discharge Instructions Interventions: ED Discharge Assessment Last Done: 03/07/20 14:56 Discharge Problem: Anemia Qualifiers: Anemia type: other cause Other causes of anemia: acute posthemorrhagic Qualified Code(s): D62 - Acute posthemorrhagic anemia
--- NOTE | 2020-03-07 19:21 | Ultrasound Report ---
US arterial duplex LE LT CLINICAL HISTORY: Peripheral artery disease, left foot pain/swelling COMPARISON STUDY: None. FINDINGS: The right ankle-brachial index measure between 0.9 and 1.0 and the left ankle-brachial inde x measured 0.9. Extensive calcified plaque throughout the left lower extremity arterial system. Bipha sic waveforms seen throughout the majority left common femoral and superficial femoral arteries. Biph asic to monophasic waveforms seen within the left popliteal artery. Monophasic waveforms seen through out the left calf vessels. Elevated peak systolic velocities within the left proximal to mid superfic ial femoral artery measuring up to 306 cm/s consistent with areas of stenosis. No elevated velocities within the remaining left lower extremity arterial system. No evidence for arterial occlusion. IMPRESSION: 1. Multifocal areas of hemodynamically significant stenosis seen within the proximal to mid left supe rficial femoral artery. No evidence for arterial occlusion. 2. Advanced calcified plaque throughout the left lower extremity arterial system. 3. Monophasic waveforms seen within the left calf vessels likely due to the diffuse atherosclerotic d isease. ACT 112: Negative or not required by law. Electronically signed by: Dash Nolasco M.D. 03/07/2020 7:20 PM
[2020-03-07 19:34] LABS: Hematocrit (blood only) 37.1 % (37-47); Hemoglobin 11.7 g/dL (12.0-16.0)
[2020-03-07] MEDS: PRAMIPEXOLE DIHYDROCHLO 0.5 MG TAB PO SCH (20:53)
[2020-03-07] MEDS: METOPROLOL TARTRATE 100 MG TAB PO SCH (20:55)
[2020-03-07] MEDS: TICAGRELOR 90 MG TAB PO SCH (20:55)
[2020-03-07] MEDS: MEDICAL MARIJUANA PO SCH (20:58)
[2020-03-07] MEDS: PREGABALIN 75 MG CAP PO SCH (21:01)
[2020-03-08 05:56] LABS: Mean Corpuscular Hgb Conc 31.3 g/dL (32-36)
[2020-03-08 06:11] LABS: Hematocrit (blood only) 34.5 % (37-47); Hemoglobin 10.8 g/dL (12.0-16.0); Mean Corpuscular Hemoglobin 26.7 pg (25-34); Mean Corpuscular Volume 85.4 fL (80-100); RDW Coefficient of Variation 17.3 % (11.5-14.5); RDW Standard Deviation 52.9 fL (36.4-46.3); Red Blood Count 4.04 M/uL (4.2-5.4); White Blood Count 10.59 K/uL (4.8-10.8)
[2020-03-08 06:22] LABS: Calcium 8.7 mg/dl (8.5-10.1); Creatinine Clr Calc Pharmacy 47.9 ml/min; Est GFR (African American) 43.7; Est GFR (Non-African American) 37.7; Potassium 3.6 mmol/L (3.5-5.1)
[2020-03-08 06:23] LABS: Basophils # (auto) 0.02 K/uL (0-0.2); Basophils % (auto) 0.2 %; Eosinophils # (auto) 0.23 K/uL (0-0.5); Eosinophils % (auto) 2.2 %; Immature Granulocytes # (auto) 0.02 K/uL (0.00-0.02); Immature Granulocytes % (auto) 0.2 %; Lymphocytes # (auto) 1.76 K/uL (1.2-3.4); Lymphocytes % (auto) 16.6 %; Monocytes # (auto) 0.92 K/uL (0.11-0.59); Monocytes % (auto) 8.7 %; Neutrophils # (auto) 7.64 K/uL (1.4-6.5); Neutrophils % (auto) 72.1 %; Platelet Count 134 K/uL (130-400); Platelet Estimate Decreased (Normal)
[2020-03-08] MEDS: TICAGRELOR 90 MG TAB PO SCH (08:25)
[2020-03-08] MEDS: METOPROLOL TARTRATE 100 MG TAB PO SCH (08:26)
[2020-03-08] MEDS: PREGABALIN 75 MG CAP PO SCH ×2 (08:26→13:46)
[2020-03-08] MEDS: PRAMIPEXOLE DIHYDROCHLO 0.5 MG TAB PO SCH (08:27)
[2020-03-08] MEDS: INSULIN ASPART 100 UNITS/ML 3 ML PEN SC SCH ×2 (08:32→12:20)
[2020-03-08] MEDS: MEDICAL MARIJUANA PO SCH (08:36)
[2020-03-08] MEDS ORDERED: DULOXETINE HCL 60 MG CAP PO SCH (09:00)
[2020-03-08] MEDS ORDERED: INSULIN GLARGINE SOLOSTAR 100 UNITS/ML 3 ML PEN SC SCH (09:00)
[2020-03-08] MEDS ORDERED: ROSUVASTATIN CALCIUM 20 MG TAB PO SCH (09:00)
[2020-03-08] MEDS ORDERED: UMECLIDINIUM BROMIDE 62.5MCG/BLISTER 7 PUFFS/INHALER INH SCH (09:00)
[2020-03-08] MEDS ORDERED: dilTIAZem HCL 240 MG CAPCR PO SCH (09:00)
[2020-03-08] MEDS ORDERED: MAGNESIUM OXIDE 400 MG TAB PO SCH (09:00)
--- NOTE | 2020-03-08 14:19 | Discharge Summary ---
Date of Service March 08, 2020 Admission HPI Per Admitting Provider Kortney Sanz is a 64 year old female with a complex past medical history including carotid endarterectomy, peripheral artery disease, coronary artery disease with prior NSTEMI, combined chronic systolic and diastolic heart failure, colitis, chronic kidney disease, branch retinal artery occlusion, diabetic foot ulcer, sick sinus syndrome, moderate COPD, diabetes mellitus, previous smoker and recent rectus sheath hematoma who presents to the ER with left foot swelling, pain and ecchymosis. No known trauma. First noticed it 2-3 days ago, main pain on the top of her dorsal distal foot over swelling. Not wearing any new shoes. Getting more painful and black/blue over that time. She also notes having x3 bouts of melena three days ago and having increased dizziness and shortness of breath on exertion. She reports a tooth braking off prior to this and bleeding significantly. Yesterday she had a normal bowel movement. Denies any abdominal pain, nausea, vomiting, diarrhea or constipation. She denies any chest pain, palpitations. Orthopnea at baseline. She does note claudication with left side > right although this has been longstanding. Principal Diagnosis Acute gastrointestinal bleed Discharge Exam Constitutional: well developed and + morbidly obese; + not well nourished and no acute distress Eyes: + anicteric sclerae; normal pupil size ENMT: external ear and nose normal, oropharynx normal Neck: normal visual inspection and trachea midline Cardiovascular: Rate/Rhythm: regular rate and regular rhythm Heart Sounds: + murmur (2/6 LUSB) Vessels: dorsalis pedis pulses present (b/l equal) and radial pulses present; no JVD Extremities: + pedal edema (2+ to knees b/l equal); + abnormal capillary refill (reduced on right toes) and no calf tenderness Gastrointestinal (Abdomen): normal bowel sounds, soft, nontender, no hepatosplenomegaly Musculoskeletal: no cyanosis or clubbing, extremities motor strength 5/5 Skin: Ecchymosis distal and anterior to lateral malleolus. Mild ecchymosis present on dorsal aspect of IPJ of all right toes. Increased swelling of right foot > left especially over tender area over 2-4th distal MT Mildly erythematous over swelling but not bright or warm to suggest cellulitic and no skin opening Neurologic: moves all extremities and awake; no focal motor deficits and not confused Motor/Sensory: + sensory deficit (Stocking distribution numbness in ankles distally) Psychiatric: A+Ox3, euthymic affect Discharge Data Allergies Allergy/AdvReac Type Severity Reaction Status Date / Time clopidogrel [From Plavix] AdvReac Mild Verified 03/05/20 13:17 Consultations 03/07/20 12:34 ED Decision to Admit Stat Ordered Studies 03/07/20 14:12 US arterial duplex LE LT Stat Hospital Course (1) Gastrointestinal bleed: Melena resolved prior to arrival. Transfuse 1 unit blood due to symptoms of shortness of breath on exertion and dizziness with Hgb <10 with extensive vascular disease. Repeat H&H, aim Hgb > 10. Continue on Xarelto as peripheral artery disease is high risk. It may be that you had bleeding gums which may have caused the melena. Will discharge on xarelto. (2) Swelling of left foot: No fracture on foot XR. Swelling mostly over distal dorsal aspect of foot. Ecchymosis over lateral ankle. No cellulitis. Ecchymosis present which suspect she has a soft tissue injury here which is slowly recovering. Multiple ecch ymotic areas on top of toes suggests pressure from shoes may be contributing. Will get arterial duplex US given extensive history of peripheral artery disease however she does have a palpable DP pulse. Unlikely DVT as she is taking Xarelto and Brilinta. (3) PAD (peripheral artery disease): US duplex arterial left as above. Continue Xarelto, Brilinta, rosuvastatin (4) Uncontrolled type 2 diabetes mellitus, with long-term current use of insulin: HbA1C 10.1 [February 26], no need to repeat Consult pharmacy for glycemic control with basal bolus insulin regimen (5) Diabetic toe ulcer: Right sided 1st toe diabetic ulcer Consult wound care nurse (6) COPD, moderate: No acute exacerbation. Continue maintenance inhalers (7) Status cardiac pacemaker: (8) Depression with anxiety: (9) Restless legs: Pramipexole 1mg PO BID (10) CAD (coronary artery disease): Continue Brilinta, Xarelto, Metoprolol, rosuvastatin (11) HTN (hypertension): Continue usual doses of metoprolol and dilriazem (12) DVT prophylaxis: Continue Xarelto as above Total Time Total Time Spent Total Time Spent (In Minutes): 32 Total Time Includes: Examination of the Patient, Discharge Planning and Medication Reconciliation Discharge Plan Discharge Items Patient Disposition: Home - Self-Care Reason For Visit: GI BLEED Discharge Diagnosis: Melena Activity: Resume your previous activity Non-emergency contact: Primary Care Provider Call non-emergency contact if: you have any medication questions Follow-up/Referrals: Glenny Correa CRNP [Primary Care Provider] - 03/16/20 12:30 pm (If you need to change this appointment, please call [phone]. ) Diet: Carb Consistent or DM2, Heart Healthy and Low Sodium (2gm) Addtl Attending Provider Instructions: You were seen for a possible GI bleed. However, it appears this may have been from bleeding gums. Your blood count has been steady. Will recommend rechecking blood count in 24 and 48 hours. Pending Studies at Discharge: No Stand-Alone Forms: My [facility], Smoking Cessation Medications and DC Order Prescriptions: New Xarelto 15 mg Tablet 15 mg PO QDD Qty: 30 RF: 0 Continued ipratropium-albuterol 0.5 mg-3 mg(2.5 mg base)/3 mL solution for nebulization 3 ml INH Q4H PRN (Reason: shortness of breath or wheezing) Qty: 90 RF: 2 diltiazem HCl 240 mg capsule,extended release 24hr 240 mg PO QAM Qty: 90 RF: 3 albuterol sulfate [Ventolin HFA] 90 mcg/actuation HFA aerosol inhaler 2 puffs INH Q6H PRN (Reason: shortness of breath or wheezing) Qty: 8 RF: 2 pregabalin [Lyrica] 75 mg capsule 75 mg PO TID Qty: 90 RF: 3 rosuvastatin 40 mg tablet 40 mg PO QAM Qty: 90 RF: 3 Brilinta 90 mg tablet 90 mg PO BID Qty: 180 RF: 3 metoprolol tartrate 100 mg tablet 100 mg PO BID Qty: 180 RF: 3 magnesium oxide 400 mg (241.3 mg magnesium) tablet 400 mg PO QAM Qty: 90 RF: 3 lorazepam 0.5 mg tablet 0.5 mg PO BID PRN (Reason: Anxiety) Qty: 60 RF: 2 pramipexole 1 mg tablet 1 mg PO BID Qty: 180 RF: 1 nitroglycerin 0.4 mg tablet, sublingual 0.4 mg SL Q5M PRN (Reason: Angina) Qty: 1 RF: 0 (DME) Aerochamber MV Spacer See Rx Instructions .ROUTE .MEDSUPPLY Qty: 1 RF: 0 metformin 1,000 mg tablet 1,000 mg PO BID RF: 0 duloxetine 60 mg capsule,delayed release(DR/EC) 60 mg PO QAM RF: 0 Spiriva Respimat 2.5 mcg/actuation mist 2 puffs INH QAM RF: 0 Robitussin Cough-Chest Noé DM 5-100 mg/5 mL Liquid 10 ml PO Q6H PRN (Reason: cough) Qty: 237 RF: 0 cannabidiol 100 mg/mL Solution 100 mg PO Q2H RF: 0 Tresiba FlexTouch U-100 100 unit/mL (3 mL) insulin pen 34 units SQ DAILY RF: 0 Discontinued Xarelto 20 mg tablet 20 mg PO DAILY RF: 0 No Action (DME) FreeStyle [place] 14 Day Sensor Kit See Rx Instructions .ROUTE .MEDSUPPLY Qty: 2 RF: 11 Discharge Orders: Discharge Order (Routine); Ordered 03/08/20 Ordered By: Delfino Schultz Admission Data Admit Date/Time: 03/07/20 14:04 Attending Provider: Delfino Schultz Admit Provider: Dmitriy Villarreal Primary Care Provider: Glenny Correa Other Providers: Dmitriy Villarreal Other Interventions: Discharge Summary Assessment (RN) Last Done: 03/08/20 14:43 DC Date/Time DO NOT enter until pt leaves facility: 03/08/20 14:55 Coding Level of Care Code D/C Day Management >30 mins Diagnoses Gastrointestinal bleed K92.2 Swelling of left foot M79.89 PAD (peripheral artery disease) I73.9 Uncontrolled type 2 diabetes mellitus, with long-term current use of insulin E11.65; Z79.4 Diabetic toe ulcer E11.621; L97.509 COPD, moderate J44.9 Status cardiac pacemaker Z95.0 Depression with anxiety F41.8 Restless legs G25.81 CAD (coronary artery disease) I25.10 Associated angina: without angina Coronary Disease-Associated Artery/Lesion type: [place] artery [place] vs. transplanted heart: mentasta heart HTN (hypertension) I10 Hypertension type: essential hypertension DVT prophylaxis Z29.9 Time Spent (min) 32
--- NOTE | 2020-03-08 14:22 | Communication Note ---
In addition to the A/P on H and P. Patient was admitted with acute blood loss anemia after being seen by Dr. Villarreal. Patient was monitored overnight and she feels well. Will discharge.
[2020-03-08] MEDS ORDERED: RIVAROXABAN 15 MG TAB PO SCH (16:30)
== END 2020-03-08 14:55 | disposition home or self-care (01) | DRG 378 ==
LOC: ED 10:04 → 2N 14:04 → SUATTDRO 14:04 → 2N 14:56

== ENCOUNTER 2020-06-20 22:12 | Inpatient (IN) ==
[2020-06-20] MEDS ORDERED: EPINEPHrine (STAT use only) 2 MG in D5W 250 ML IV STA (22:21)
[2020-06-20] MEDS ORDERED: FUROSEMIDE 40 MG/4 ML VIAL IV ONE (22:23)
[2020-06-20] MEDS ORDERED: AMIODARONE 360MG / 200ML D5W IV ONE (22:23)
[2020-06-20] MEDS ORDERED: HEPARIN (PORCINE) 1000 UNIT/ML 10 ML (CATH LAB USE ONLY) ONE (22:26)
[2020-06-20] MEDS ORDERED: niCARdipine HCL INJ 2.5 MG/ML 10 ML AMP ONE ×2 (22:26→22:27)
[2020-06-20] MEDS ORDERED: MIDAZOLAM HCL 1 MG/ML 2ML VIAL ONE (22:27)
[2020-06-20] MEDS ORDERED: NITROGLYCERIN/D5W 100MCG/ML 20ML SYR ONE (22:27)
[2020-06-20] MEDS ORDERED: fentaNYL citrate 100 MCG/2 ML VIAL ONE (22:27)
[2020-06-20] MEDS: MAGNESIUM SULFATE / D5W 1 GM/100 ML BAG IV SCH ×2 (22:30→22:57)
[2020-06-20 22:33] LABS: iSTAT Creatinine 1.3 mg/dl (0.6-1.3); iSTAT Hemoglobin 13.9 g/dl (12.0-16.0); iSTAT Ionized Calcium 1.11 mmol/l (1.12-1.32); iSTAT Potassium 5.1 mmol/L (3.3-5.0)
[2020-06-20 22:58] LABS: INR 1.1 (0.9-1.1); Partial Thromboplastin Ratio 1.5; Partial Thromboplastin Time 40.5 Seconds (21.0-31.0); Prothrombin Time 11.1 Seconds (9.0-12.0)
[2020-06-20 22:59] LABS: Albumin Globulin Ratio 0.7 (0.9-2); Albumin Level 2.7 gm/dl (3.4-5.0); BUN Creatinine Ratio 13.5 (10-20); Bilirubin,Total 0.4 mg/dl (0.2-1); Calcium 9.4 mg/dl (8.5-10.1); Creatine Kinase MB 2.5 ng/ml (0.5-3.6); Creatinine Clr Calc Pharmacy 41.3 ml/min; Est GFR (African American) 34.8; Globulin 3.8 gm/dl (2.5-4.0); Total Protein 6.5 gm/dl (6.4-8.2); Troponin I 0.177 ng/ml (0-0.045)
[2020-06-20] MEDS ORDERED: METOPROLOL TARTRATE 1 MG/ML VIAL IV ONE (23:02)
[2020-06-20 23:03] LABS: Hematocrit (blood only) 41.4 % (37-47); Hemoglobin 11.6 g/dL (12.0-16.0); Mean Corpuscular Hemoglobin 24.9 pg (25-34); Nucleated RBC # (auto) 0.45 K/uL (0-0); Nucleated RBC % (auto) 1.9 %; Platelet Count 233 K/uL (130-400); RDW Coefficient of Variation 18.9 % (11.5-14.5); RDW Standard Deviation 61.1 fL (36.4-46.3); Red Blood Count 4.65 M/uL (4.2-5.4); White Blood Count 23.05 K/uL (4.8-10.8)
--- NOTE | 2020-06-20 23:05 | Emergency Department Note ---
History of Present Illness General Chief complaint: Heart Alert Source: patient, family, EMS, RN notes reviewed and old records reviewed Mode of arrival: EMS Limitations: clinical acuity History of Present Illness Provider complaint: Cardiac arrest Onset (ago): minute(s) 5 Location: chest Treatments prior to arrival: other (CPR, epix1) This is a 64-year-old female who presents emergency department in cardiac arrest. The patient was driving when she suddenly experienced severe chest pain. She had to lime puller to the side of the road and EMS was summoned. Upon arrival EMS found the patient complaining of severe chest pain that radiated into her neck. The patient was placed on 15 L nonrebreather. EMS called for medical command and a heart alert was initiated. As report was being called for heart alert the patient went into cardiac arrest and CPR was initiated. The patient was given 1 round of epi. Upon arrival to the emergency department the patient is being bagged ventilated and CPR is in progress. Home Medications Home Medications Medication Instructions Recorded Confirmed Type nitroglycerin 0.4 mg sublingual 0.4 mg SL Q5M PRN #1 tab 06/08/19 05/13/20 History tablet Spiriva Respimat 2 puffs INH QAM 07/18/19 05/13/20 History albuterol sulfate 90 mcg/actuation 2 puffs INH Q6H PRN #8 gm 10/08/19 05/13/20 Rx aerosol inhaler Robitussin Cough-Chest Noé DM 10 ml PO Q6H PRN #237 ml 11/22/19 05/13/20 Rx lorazepam 0.5 mg tablet 0.5 mg PO BID PRN #60 tab 11/27/19 05/13/20 Rx magnesium oxide 400 mg (241.3 mg 400 mg PO QAM #90 tab 11/27/19 05/13/20 Rx magnesium) tablet rosuvastatin 40 mg tablet 40 mg PO QAM #90 tab 01/30/20 05/13/20 Rx ticagrelor 90 mg tablet 90 mg PO BID #180 tab 02/11/20 05/13/20 Rx metoprolol tartrate 100 mg tablet 100 mg PO BID #180 tab 02/16/20 05/13/20 Rx pramipexole 1 mg tablet 1 mg PO BID #180 tab 03/01/20 05/13/20 Rx cannabidiol 100 mg PO Q2H 03/07/20 05/13/20 History rivaroxaban [Xarelto] 15 mg PO QDD #30 tab 03/08/20 05/13/20 Rx FreeStyle Rosales 14 Day Sensor #2 ea NS 03/10/20 05/13/20 Rx pen needle, diabetic 31 gauge x #100 ea 03/16/20 05/13/20 Rx 5/16" pregabalin 75 mg capsule 75 mg PO TID #90 cap 04/12/20 05/13/20 Rx CPAP Machine #1 ea 05/13/20 05/13/20 Rx metformin 1,000 mg tablet 1,000 mg PO BID #60 tab 05/18/20 Rx ipratropium 0.5 mg-albuterol 3 mg 3 ml INH Q4H PRN #180 ml 05/20/20 05/20/20 Rx (2.5 mg base)/3 mL nebulization soln duloxetine 60 mg capsule,delayed 60 mg PO QAM #90 cap 05/24/20 Rx release diltiazem HCl 240 mg 240 mg PO QAM #90 cap 06/03/20 Rx capsule,extended release 24 hr insulin degludec 100 unit/mL (3 See Rx Instructions SQ DAILY #60 ml 06/14/20 Rx mL) subcutaneous pen Allergies Allergy/AdvReac Type Severity Reaction Status Date / Time clopidogrel [From Plavix] AdvReac Mild Verified 05/06/20 12:37 Past Med/Surg History Medical History ANNETTE (acute kidney injury) Altered mental status Bulging discs Degenerative disc disease Depression with anxiety Hx of non-ST elevation myocardial infarction (NSTEMI) 05/2018 Hypokalemia Hyponatremia Hypoxia Medical marijuana use Metabolic encephalopathy Myocardial Infarction 05/2018 - [facility] Obesity Pacemaker 05/2015 - Sick sinus syndrome - Last checked 02/2019 ([facility]) - [employer] Plavix resistance Non-responder to Plavix per [facility] genetic testing. Per Dr. Zarate, her [facility] surgeon. Restless legs Rheumatoid arthritis Spinal stenosis Surgical History History of cardiac cath 05/2018 - [place] - NO STENTS/ANGIOPLASTY - COLLATERAL CIRCULATION - FOLLOWS W/ DR. NYDEGGAR History of carotid endarterectomy History of cataract surgery BILATERAL History of cholecystectomy History of intravascular stent placement Multiple stents in bilateral legs, left subclavian, left aortic mesenteric bypass, left carotid endarterectomy History of oral surgery History of tonsillectomy History of tooth extraction Family History Mother , Heart Disease Ruptured Appendix No problems noted. Father , with Vascular and Colon Can No problems noted. Sister No problems noted. 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 Beliefs That Will Affect Care: None marital status: Current Living Situation: Family Current Living Situation Comment: Lives with sister How many Children do You have: 0 Feels Safe at Home: Yes Assistive Devices: Oxygen - Continuous Review of Systems Unobtainable due to reduced consciousness Physical Exam Vital Signs Vital Signs - 24 hr 06/20/20 22:15 06/20/20 22:21 06/20/20 22:22 Pulse Rate 113 H 130 H Respiratory Rate 23 20 Blood Pressure 98/76 L Blood Pressure Mean 79 Pulse Oximetry 88 L 89 L Fraction of Inspired Oxygen Sepsis Recent Fever Within 48 Hours No Sepsis New/Unexplained Change in Mental Status N/A Sepsis Action Taken by Nursing No Action Required End-Tidal CO2 06/20/20 22:25 06/20/20 22:28 06/20/20 22:30 Pulse Rate 138 H 138 H 125 H Respiratory Rate 22 20 19 Blood Pressure 110/76 136/76 Blood Pressure Mean 93 91 Pulse Oximetry 90 95 100 Fraction of Inspired Oxygen 100 Sepsis Recent Fever Within 48 Hours Sepsis New/Unexplained Change in Mental Status Sepsis Action Taken by Nursing End-Tidal CO2 44 20 06/20/20 22:31 Pulse Rate 105 H Respiratory Rate Blood Pressure 91/56 L Blood Pressure Mean 58 Pulse Oximetry 97 Fraction of Inspired Oxygen Sepsis Recent Fever Within 48 Hours Sepsis New/Unexplained Change in Mental Status Sepsis Action Taken by Nursing End-Tidal CO2 54 VITAL SIGNS - Vital signs and nursing notes were reviewed. GENERAL - 64-year-old female appearing stated age who is in acute distress. CPR is in progress SKIN - Without rashes. HEAD - NC/AT. EYES - Pupils fixed and dilated. Sclera anicteric. Palpebral conjunctiva pink and moist with no injection noted. EARS - No deformities of external structures noted on gross examination bi laterally. No pain elicited with palpation of the tragus bilaterally. External auditory canals without discharge or otorrhea. Tympanic membranes pearly ghosh without retraction or bulging. No fluid or purulent material visualized behind the TM. Handle of malleus, umbo, cone of light, pars tensa/flaccid all easily visualized. NOSE - Nasal trumpet present left nares; Midline and without cyanosis. No epistaxis or purulent drainage noted. Septum midline without deviation or septal hematoma noted. MOUTH/OROPHARYNX - Without perioral cyanosis. Buccal mucosa pink and moist and without leukoplakia. Tongue midline with equal elevation of palate bilaterally. No tonsillar hypertrophy, erythema, or exudates noted. dentition noted. NECK - Neck with FROM. Supple to palpation. lymphadenopathy noted. No nuchal rigidity. LUNGS - Chest wall symmetric without accessory muscle use, intercostals retract ions, or central cyanosis. Diffuse rales B/L CARDIAC - RRR with S1/S2. No murmur, rubs, or gallops appreciated. ABDOMEN - Abdominal contour without pulsations or visible masses. BS normoactive all four quadrants. No palpable masses, hepatosplenomegaly, or ascites noted. EXTREMITIES - No clubbing or peripheral cyanosis. No pretibial edema present. +3/5 radial, posterior tibial, and dorsalis pedis pulses palpated throughout. +5/5 strength noted in UE/LE bilaterally. NEUROLOGIC - Pt obtunded GCS 3-I PSYCH - Pt obtunded Procedures Epistaxis Control Time Out Performed: Yes (I performed the procedure, anterior posterior balloon on left ) Nostril: bilateral (7 inserted on left, 5 inserted om Right ) Direct Inspection: yes and unable to visualize Clots Removed by: suction Cautery Used: none Device Inserted: hemostatic balloon (5 ccs air) Device Size: 7 Patient Tolerated Procedure: no complications Course Administered Medications Discontinued Medications Amiodarone HCl/Dextrose (Amiodarone 360mg / 200ml D5w) Confirm Administered Dose 360 mg IV .PlaceFirst-GetBulb ONE Stop: 06/20/20 22:24 Last Admin: 06/21/20 01:55 Dose: 360 mg Documented by: [id number] Cosigned by: [id number] Buspirone HCl (Buspirone 15 Mg Tab) 60 mg NG ONCE PRN PRN Reason: For Shivering x 1 dose Stop: 07/20/20 23:50 Last Admin: 06/21/20 17:31 Dose: 60 mg Documented by: [id number] Dextrose (Dextrose 50% 50 Ml Syringe) 25 - 50 ml IV UD PRN; Protocol PRN Reason: Hypoglycemia Protocol Stop: 07/21/20 01:59 Last Admin: 06/21/20 23:42 Dose: 25 ml Documented by: [id number] Admin: 06/21/20 17:12 Dose: 25 ml Documented by: [id number] Admin: 06/21/20 14:45 Dose: 25 ml Documented by: [id number] Fentanyl Citrate (Fentanyl Citrate 100 Mcg/2 Ml Vial) Confirm Administered Dose 100 mcg .ROUTE .PlaceFirst-GetBulb ONE Stop: 06/20/20 22:28 Last Admin: 06/21/20 00:32 Dose: 50 mcg Documented by: [id number] Fentanyl Citrate (Fentanyl Bolus From Bag) 100 mcg IV ONCE ONE Stop: 06/21/20 02:17 Last Admin: 06/21/20 03:40 Dose: 100 mcg Documented by: [id number] Fentanyl Citrate (Fentanyl Citrate 100 Mcg/2 Ml Vial) 50 mcg IV Q2H PRN PRN Reason: Pain Stop: 07/05/20 20:25 Last Admin: 06/22/20 05:58 Dose: 50 mcg Documented by: [id number] Admin: 06/22/20 02:12 Dose: 50 mcg Documented by: [id number] Admin: 06/21/20 22:20 Dose: 100 mcg Documented by: [id number] Admin: 06/21/20 20:49 Dose: 50 mcg Documented by: [id number] Fentanyl Citrate (Fentanyl Citrate 100 Mcg/2 Ml Vial) 100 mcg IV NOW STA Stop: 06/21/20 22:22 Last Admin: 06/21/20 22:40 Dose: Not Given Documented by: [id number] Furosemide (Furosemide 40 Mg/4 Ml Vial) Confirm Administered Dose 40 mg IV .STSpineThera- MED ONE Stop: 06/20/20 22:24 Last Admin: 06/20/20 22:25 Dose: 40 mg Documented by: [id number] Heparin Sodium (Porcine) (Heparin (Porcine) 1000 Unit/Ml 10 Ml (Skein Bander Use Only)) Confirm Administered Dose 10,000 units .ROUTE .STK-MED ONE Stop: 06/20/20 22:27 Last Admin: 06/21/20 00:34 Dose: Not Given Documented by: [id number] Heparin Sodium/Sodium Chloride (Heparin In Nss Infusion 1000 Unit/500 Ml (2 U/Ml) Bag) Confirm Administered Dose 3,000 units IV .STK-MED ONE Stop: 06/20/20 22:28 Last Admin: 06/21/20 00:32 Dose: 3,000 units Documented by: [id number] Epinephrine HCl 2 mg/ Dextrose 252 mls @ 16.33 mls/hr IV .[id number] [facility]; Protocol Stop: 06/21/20 13:46 Last Admin: 06/21/20 03:42 Dose: Not Given Documented by: [id number] Magnesium Sulfate/Dextrose (Magnesium Sulfate / D5w) 1 gm in 100 mls @ 100 mls/hr IV Q1H [facility] Stop: 06/21/20 00:26 Last Infusion: 06/21/20 02:54 Dose: 100 mls/hr Documented by: [id number] Admin: 06/21/20 01:54 Dose: 100 mls/hr Documented by: [id number] Infusion: 06/20/20 23:30 Dose: 100 mls/hr Documented by: [id number] Admin: 06/20/20 22:30 Dose: 100 mls/hr Documented by: [id number] Magnesium Sulfate/Dextrose (Magnesium Sulfate / D5w) 1 gm in 100 mls @ 200 mls/hr IV Q30M [facility] Stop: 06/20/20 23:26 Last Admin: 06/21/20 03:39 Dose: Not Given Documented by: [id number] Admin: 06/20/20 22:57 Dose: Not Given Documented by: [id number] Propofol (Diprivan) 1,000 mg in 100 mls @ 0 mls/hr IV .Q0M [facility]; Protocol Stop: 06/23/20 23:44 Last Titration: 06/22/20 11:19 Dose: 0 mcg/kg/min, 0 mls/hr Documented by: [id number] Admin: 06/22/20 09:10 Dose: Not Given Documented by: [id number] Admin: 06/22/20 09:10 Dose: Not Given Documented by: [id number] Titration: 06/22/20 08:15 Dose: 0 mcg/kg/min, 0 mls/hr Documented by: [id number] Admin: 06/22/20 07:03 Dose: Not Given Documented by: [id number] Cosigned by: [id number] Admin: 06/22/20 07:03 Dose: 50 mcg/kg/min, 32.4 mls/hr Documented by: [id number] Cosigned by: [id number] Titration: 06/22/20 07:03 Dose: 50 mcg/kg/min, 32.4 mls/hr Documented by: [id number] Cosigned by: [id number] Titration: 06/22/20 06:54 Dose: 50 mcg/kg/min, 32.4 mls/hr Documented by: [id number] Cosigned by: [id number] Admin: 06/22/20 04:04 Dose: 50 mcg/kg/min, 32.4 mls/hr Documented by: [id number] Cosigned by: [id number] Titration: 06/22/20 03:33 Dose: 50 mcg/kg/min, 32.4 mls/hr Documented by: [id number] Cosigned by: [id number] Admin: 06/22/20 00:27 Dose: 50 mcg/kg/min, 32.4 mls/hr Documented by: [id number] Cosigned by: [id number] Titration: 06/22/20 00:27 Dose: 45 mcg/kg/min, 29.2 mls/hr Documented by: [id number] Cosigned by: [id number] Admin: 06/21/20 22:22 Dose: 45 mcg/kg/min, 29.2 mls/hr Documented by: [id number] Cosigned by: [id number] Titration: 06/21/20 22:09 Dose: 50 mcg/kg/min, 32.4 mls/hr Documented by: [id number] Cosigned by: [id number] Admin: 06/21/20 18:43 Dose: 45 mcg/kg/min, 29.2 mls/hr Documented by: [id number] Cosigned by: [id number] Titration: 06/21/20 18:42 Dose: 45 mcg/kg/min, 29.2 mls/hr Documented by: [id number] Cosigned by: [id number] Admin: 06/21/20 15:16 Dose: 45 mcg/kg/min, 29.2 mls/hr Documented by: [id number] Cosigned by: [id number] Titration: 06/21/20 15:16 Dose: 45 mcg/kg/min, 29.2 mls/hr Documented by: [id number] Cosigned by: [id number] Titration: 06/21/20 15:03 Dose: 45 mcg/kg/min, 29.2 mls/hr Documented by: [id number] Titration: 06/21/20 14:36 Dose: 45 mcg/kg/min, 29.2 mls/hr Documented by: [id number] Titration: 06/21/20 13:34 Dose: 50 mcg/kg/min, 32.4 mls/hr Documented by: [id number] Titration: 06/21/20 13:24 Dose: 30 mcg/kg/min, 19.4 mls/hr Documented by: [id number] Admin: 06/21/20 10:55 Dose: 20 mcg/kg/min, 13 mls/hr Documented by: [id number] Cosigned by: [id number] Titration: 06/21/20 10:13 Dose: 20 mcg/kg/min, 13 mls/hr Documented by: [id number] Cosigned by: [id number] Titration: 06/21/20 08:13 Dose: 20 mcg/kg/min, 13 mls/hr Documented by: [id number] Titration: 06/21/20 07:01 Dose: 10 mcg/kg/min, 6.5 mls/hr Documented by: [id number] Cosigned by: [id number] Admin: 06/21/20 01:55 Dose: 20 mcg/kg/min, 13 mls/hr Documented by: [id number] Cosigned by: [id number] Norepinephrine Bitartrate 8 mg (/ Dextrose) 508 mls @ 0 mls/hr IV .Q0M [facility]; Protocol Stop: 07/20/20 23:44 Last Admin: 06/22/20 03:44 Dose: Not Given Documented by: [id number] Titration: 06/22/20 00:23 Dose: 0 mcg/kg/min, 0 mls/hr Documented by: [id number] Titration: 06/21/20 04:26 Dose: 0 mcg/kg/min, 0 mls/hr Documented by: [id number] Admin: 06/21/20 01:56 Dose: 0.05 mcg/kg/min, 20.6 mls/hr Documented by: [id number] Cosigned by: [id number] Fentanyl Citrate (Fentanyl Drip) 1,250 mcg in 250 mls @ 40 mls/hr IV .Q6H15M [facility]; Protocol Stop: 07/04/20 23:44 Last Titration: 06/22/20 09:34 Dose: 0 mcg/hr, 0 mls/hr Documented by: [id number] Cosigned by: [id number] Titration: 06/22/20 08:19 Dose: 200 mcg/hr, 40 mls/hr Documented by: [id number] Cosigned by: [id number] Titration: 06/22/20 08:04 Dose: 150 mcg/hr, 30 mls/hr Documented by: [id number] Cosigned by: [id number] Titration: 06/21/20 14:30 Dose: 0 mcg/hr, 0 mls/hr Documented by: [id number] Cosigned by: [id number] Titration: 06/21/20 13:24 Dose: 50 mcg/hr, 10 mls/hr Documented by: [id number] Cosigned by: [id number] Titration: 06/21/20 07:01 Dose: 25 mcg/hr, 5 mls/hr Documented by: [id number] Cosigned by: [id number] Admin: 06/21/20 01:55 Dose: 25 mcg/hr, 5 mls/hr Documented by: [id number] Cosigned by: [id number] Sodium Chloride (Nss 1000ml) 1,000 mls @ 80 mls/hr IV .[id number] [facility] Stop: 07/20/20 23:44 Last Infusion: 06/22/20 09:10 Dose: 0 mls/hr Documented by: [id number] Admin: 06/21/20 21:51 Dose: 80 mls/hr Documented by: [id number] Infusion: 06/21/20 21:51 Dose: 80 mls/hr Documented by: [id number] Infusion: 06/21/20 21:18 Dose: 80 mls/hr Documented by: [id number] Infusion: 06/21/20 20:40 Dose: 0 mls/hr Documented by: [id number] Admin: 06/21/20 09:46 Dose: 80 mls/hr Documented by: [id number] Infusion: 06/21/20 09:46 Dose: 80 mls/hr Documented by: [id number] Admin: 06/21/20 01:57 Dose: 80 mls/hr Documented by: [id number] Pantoprazole Sodium 40 mg/ (Syringe) 10 mls @ 5 mls/min IV DAILY@1100 [facility] Stop: 07/21/20 10:59 Last Admin: 06/21/20 10:55 Dose: 5 mls/min Documented by: [id number] Insulin Human Regular 250 (units/ Sodium Chloride) 250 mls @ 0 mls/hr IV .Q0M [facility]; Protocol Stop: 07/21/20 01:44 Last Admin: 06/22/20 05:32 Dose: Not Given Documented by: [id number] Cosigned by: [id number] Titration: 06/22/20 03:16 Dose: 0 units/hr, 0 mls/hr Documented by: [id number] Cosigned by: [id number] Titration: 06/22/20 03:00 Dose: 0.3 units/hr, 0.3 mls/hr Documented by: [id number] Cosigned by: [id number] Admin: 06/22/20 02:14 Dose: 0.4 units/hr, 0.4 mls/hr Documented by: [id number] Cosigned by: [id number] Titration: 06/22/20 02:14 Dose: 0.4 units/hr, 0.4 mls/hr Documented by: [id number] Cosigned by: [id number] Titration: 06/22/20 02:00 Dose: 0.4 units/hr, 0.4 mls/hr Documented by: [id number] Cosigned by: [id number] Titration: 06/22/20 01:00 Dose: 0.4 units/hr, 0.4 mls/hr Documented by: [id number] Cosigned by: [id number] Titration: 06/21/20 23:59 Dose: 0.5 units/hr, 0.5 mls/hr Documented by: [id number] Cosigned by: [id number] Titration: 06/21/20 23:30 Dose: 0 units/hr, 0 mls/hr Documented by: [id number] Cosigned by: [id number] Titration: 06/21/20 22:30 Dose: 0.9 units/hr, 0.9 mls/hr Documented by: [id number] Cosigned by: [id number] Titration: 06/21/20 21:30 Dose: 1.1 units/hr, 1.1 mls/hr Documented by: [id number] Cosigned by: [id number] Titration: 06/21/20 20:30 Dose: 1.1 units/hr, 1.1 mls/hr Documented by: [id number] Cosigned by: [id number] Titration: 06/21/20 19:30 Dose: 1.1 units/hr, 1.1 mls/hr Documented by: [id number] Cosigned by: [id number] Titration: 06/21/20 18:44 Dose: 1.1 units/hr, 1.1 mls/hr Documented by: [id number] Cosigned by: [id number] Titration: 06/21/20 17:30 Dose: 1.4 units/hr, 1.4 mls/hr Documented by: [id number] Cosigned by: [id number] Titration: 06/21/20 17:00 Dose: 0 units/hr, 0 mls/hr Documented by: [id number] Cosigned by: [id number] Titration: 06/21/20 16:03 Dose: 2.4 units/hr, 2.4 mls/hr Documented by: [id number] Cosigned by: [id number] Titration: 06/21/20 15:03 Dose: 3 units/hr, 3 mls/hr Documented by: [id number] Cosigned by: [id number] Titration: 06/21/20 14:30 Dose: 0 units/hr, 0 mls/hr Documented by: [id number] Cosigned by: [id number] Titration: 06/21/20 13:30 Dose: 5.9 units/hr, 5.9 mls/hr Documented by: [id number] Cosigned by: [id number] Titration: 06/21/20 12:00 Dose: 5.9 units/hr, 5.9 mls/hr Documented by: [id number] Cosigned by: [id number] Titration: 06/21/20 11:00 Dose: 5.9 units/hr, 5.9 mls/hr Documented by: [id number] Cosigned by: [id number] Titration: 06/21/20 10:00 Dose: 5.9 units/hr, 5.9 mls/hr Documented by: [id number] Cosigned by: [id number] Titration: 06/21/20 09:00 Dose: 7.4 units/hr, 7.4 mls/hr Documented by: [id number] Cosigned by: [id number] Titration: 06/21/20 08:00 Dose: 9.2 units/hr, 9.2 mls/hr Documented by: [id number] Cosigned by: [id number] Titration: 06/21/20 07:01 Dose: 11.5 units/hr, 11.5 mls/hr Documented by: [id number] Cosigned by: [id number] Titration: 06/21/20 06:50 Dose: 11.5 units/hr, 11.5 mls/hr Documented by: [id number] Cosigned by: [id number] Titration: 06/21/20 05:50 Dose: 9.6 units/hr, 9.6 mls/hr Documented by: [id number] Cosigned by: [id number] Titration: 06/21/20 04:50 Dose: 8 units/hr, 8 mls/hr Documented by: [id number] Cosigned by: [id number] Titration: 06/21/20 04:25 Dose: 6.7 units/hr, 6.7 mls/hr Documented by: [id number] Cosigned by: [id number] Titration: 06/21/20 02:50 Dose: 5.6 units/hr, 5.6 mls/hr Documented by: [id number] Cosigned by: [id number] Admin: 06/21/20 02:00 Dose: 4 units/hr, 4 mls/hr Documented by: [id number] Cosigned by: [id number] Amiodarone HCl/Dextrose (Nexterone / D5w) 360 mg in 200 mls @ 33.333 mls/hr IV ONE ONE; Protocol Stop: 06/21/20 09:57 Last Infusion: 06/21/20 11:03 Dose: 0 mg/min, 0 mls/hr Documented by: [id number] Cosigned by: [id number] Infusion: 06/21/20 07:01 Dose: 0.5 mg/min, 16.7 mls/hr Documented by: [id number] Cosigned by: [id number] Admin: 06/21/20 04:24 Dose: 1 mg/min, 33.3 mls/hr Documented by: [id number] Cosigned by: [id number] Amiodarone HCl/Dextrose (Nexterone / D5w) 360 mg in 200 mls @ 16.667 mls/hr IV .Q12H [facility] Stop: 07/21/20 03:59 Last Admin: 06/21/20 07:50 Dose: Not Given Documented by: [id number] Amiodarone HCl/Dextrose (Nexterone / D5w) 360 mg in 200 mls @ 16.667 mls/hr IV .Q12H [facility] Stop: 07/21/20 09:59 Last Infusion: 06/22/20 06:54 Dose: 0.5 mg/min, 16.7 mls/hr Documented by: [id number] Cosigned by: [id number] Admin: 06/22/20 01:30 Dose: 0.5 mg/min, 16.7 mls/hr Documented by: [id number] Cosigned by: [id number] Infusion: 06/22/20 01:30 Dose: 0.5 mg/min, 16.7 mls/hr Documented by: [id number] Cosigned by: [id number] Infusion: 06/21/20 15:03 Dose: 0.5 mg/min, 16.7 mls/hr Documented by: [id number] Cosigned by: [id number] Admin: 06/21/20 14:21 Dose: 0.5 mg/min, 16.7 mls/hr Documented by: [id number] Cosigned by: [id number] Infusion: 06/21/20 14:21 Dose: 0.5 mg/min, 16.7 mls/hr Documented by: [id number] Cosigned by: [id number] Infusion: 06/21/20 07:01 Dose: 0.5 mg/min, 16.7 mls/hr Documented by: [id number] Cosigned by: [id number] Admin: 06/21/20 06:07 Dose: 0.5 mg/min, 16.7 mls/hr Documented by: [id number] Cosigned by: [id number] Potassium Chloride (K Rodrigo / Wtr) 20 meq in 100 mls @ 50 mls/hr IV Q2H [facility] Stop: 06/21/20 15:14 Last Infusion: 06/21/20 15:10 Dose: 0 mls/hr Documented by: [id number] Admin: 06/21/20 13:01 Dose: 50 mls/hr Documented by: [id number] Infusion: 06/21/20 12:58 Dose: 50 mls/hr Documented by: [id number] Admin: 06/21/20 10:58 Dose: 50 mls/hr Documented by: [id number] Infusion: 06/21/20 10:58 Dose: 50 mls/hr Documented by: [id number] Admin: 06/21/20 09:15 Dose: 50 mls/hr Documented by: [id number] Potassium Chloride (K Rodrigo / Wtr) 20 meq in 100 mls @ 50 mls/hr IV Q2H [facility] Stop: 06/21/20 21:29 Last Infusion: 06/21/20 21:45 Dose: 0 mls/hr Documented by: [id number] Admin: 06/21/20 19:45 Dose: 50 mls/hr Documented by: [id number] Infusion: 06/21/20 19:31 Dose: 50 mls/hr Documented by: [id number] Admin: 06/21/20 17:31 Dose: 50 mls/hr Documented by: [id number] Ceftriaxone Sodium 2,000 mg/ (Dextrose) 70 mls @ 100 mls/hr IV Q24H [facility]; Protocol Stop: 06/26/20 20:14 Last Infusion: 06/21/20 21:18 Dose: 0 mls/hr Documented by: [id number] Admin: 06/21/20 20:36 Dose: 100 mls/hr Documented by: [id number] Insulin Aspart (Insulin Aspart 100 Units/Ml 3 Ml Pen) 0 units SC ACHS [facility] Stop: 07/21/20 07:29 Last Admin: 06/21/20 20:43 Dose: Not Given Documented by: [id number] Cosigned by: [id number] Admin: 06/21/20 18:18 Dose: Not Given Documented by: [id number] Cosigned by: [id number] Admin: 06/21/20 11:06 Dose: Not Given Documented by: [id number] Cosigned by: [id number] Admin: 06/21/20 07:50 Dose: Not Given Documented by: [id number] Cosigned by: [id number] Insulin Aspart (Insulin Aspart 100 Units/Ml 3 Ml Pen) 0 units SC Q4 [facility] Stop: 07/22/20 07:59 Last Admin: 06/22/20 09:10 Dose: Not Given Documented by: [id number] Cosigned by: [id number] Insulin Human Regular (Novolin-R Bolus From Bag) 4 units IV ONE ONE Stop: 06/21/20 02:01 Last Admin: 06/21/20 02:00 Dose: 4 units Documented by: [id number] Cosigned by: [id number] Ioversol (Optiray 320 125ml) 125 ml IV ONCE ONE Stop: 06/21/20 00:20 Last Admin: 06/21/20 00:19 Dose: 119 ml Documented by: [id number] Metoprolol Tartrate (Metoprolol Tartrate 1 Mg/Ml Vial) Confirm Administered Dose 5 mg IV .STK-MED ONE Stop: 06/20/20 23:03 Last Admin: 06/21/20 00:33 Dose: 2.5 mg Documented by: [id number] Midazolam HCl (Midazolam Hcl 1 Mg/Ml 2ml Vial) Confirm Administered Dose 2 mg .ROUTE .STK-MED ONE Stop: 06/20/20 22:28 Last Admin: 06/21/20 00:33 Dose: 1 mg Documented by: [id number] Miscellaneous (Insulin Protocol Goal Range ) 1 ea N/A ONE ONE Stop: 06/21/20 14:55 Last Admin: 06/21/20 15:11 Dose: 1 ea Documented by: [id number] Nicardipine HCl (Nicardipine Hcl Inj 2.5 Mg/Ml 10 Ml Amp) Confirm Administered Dose 25 mg .ROUTE .STK-MED ONE Stop: 06/20/20 22:27 Last Admin: 06/21/20 00:32 Dose: 25 mg Documented by: [id number] Nicardipine HCl (Nicardipine Hcl Inj 2.5 Mg/Ml 10 Ml Amp) Confirm Administered Dose 25 mg .ROUTE .STK-MED ONE Stop: 06/20/20 22:28 Last Admin: 06/21/20 00:32 Dose: Not Given Documented by: [id number] Nitroglycerin/Dextrose (Nitroglycerin/D5w 100mcg/Ml 20ml Syr) Confirm A dministered Dose 2,000 mcg .ROUTE .STK-MED ONE Stop: 06/20/20 22:28 Last Admin: 06/21/20 00:33 Dose: 2,000 mcg Documented by: [id number] Propofol (Propofol Bolus From Bag) 20 mg IV Q5M PRN PRN Reason: Sedation Stop: 06/23/20 23:55 Last Admin: 06/22/20 04:27 Dose: 20 mg Documented by: [id number] Cosigned by: [id number] Admin: 06/22/20 00:26 Dose: 20 mg Documented by: [id number] Cosigned by: [id number] Admin: 06/21/20 22:30 Dose: 20 mg Documented by: [id number] Cosigned by: [id number] Sodium Bicarbonate (Sodium Bicarb 8.4% Inj 50 Meq/50 Ml Syr) Confirm Administered Dose 100 meq IV .[facility]-MED ONE Stop: 06/20/20 23:17 Last Admin: 06/21/20 00:33 Dose: 100 meq Documented by: [id number] Critical Care Time I have personally spent greater than 90 minutes of critical care time in the direct management of this patient. This includes bedside care, interpretation of diagnostic studies, and testing, discussion with consultants, patient, and family members, and other required patient management activities. This 90 minutes is in excess of all separately billable procedures. Medical Decision Making Differential Diagnosis Cardiac ischemia, aortic dissection, pulmonary embolism, pneumothorax, pneumonia, pericarditis, myocarditis, esophageal rupture, GERD, cholecystitis, pancreatitis, musculoskeletal, as well as other pathologies. Medical Records Attestation: I reviewed the patient's medical records. Home Medications Current Medication List: was personally reviewed by me Laboratory Data Attestation: I reviewed the patient's lab results. Result diagrams: 06/22/20 05:30 06/22/20 05:30 Lab Results 06/20/20 06/20/20 06/20/20 Range/Units 22:18 22:20 22:21 WBC 23.05 H (4.8-10.8) K/uL RBC 4.65 (4.2-5.4) M/uL Hgb 11.6 L (12.0-16.0) g/dL POC Hgb 13.9 (12.0-16.0) g/dl Hct 41.4 (37-47) % POC Hct 41 (37-47) % MCV 89.0 (80-100) fL MCH 24.9 L (25-34) pg MCHC 28.0 L (32-36) g/dL RDW Std Deviation 61.1 H (36.4-46.3) fL RDW Coeff of Tosin 18.9 H (11.5-14.5) % Plt Count 233 (130-400) K/uL Immature Gran % (Auto) 3.1 % Neut % (Auto) 39.1 % Lymph % (Auto) 45.5 % Whitley % (Auto) 9.8 % Eos % (Auto) 1.9 % Baso % (Auto) 0.6 % Neut # (Auto) 9.00 H (1.4-6.5) K/uL Lymph # (Auto) 10.49 H (1.2-3.4) K/uL Whitley # (Auto) 2.27 H (0.11-0.59) K/uL Eos # (Auto) 0.44 (0-0.5) K/uL Baso # (Auto) 0.13 (0-0.2) K/uL Immature Gran # (Auto) 0.72 H (0.00-0.02) K/uL Absolute Nucleated RBC 0.45 H (0-0) K/uL Nucleated RBC % (auto) 1.9 % Polychromasia 1+ Echinocytes 1+ PT (9.0-12.0) Seconds INR (0.9-1.1) APTT (21.0-31.0) Seconds PTT Ratio POC pH (7.35-7.45) POC pCO2 (35-46) mmHg POC pO2 (80-95) mmHg POC HCO3 (19-24) harriet/L POC Base Excess (-9-1.8) harriet/L POC ABG O2 Sat (90-95) % POC Sodium 135 (135-144) mmol/L Sodium (136-145) mmol/L POC Potassium 5.1 H (3.3-5.0) mmol/L Potassium (3.5-5.1) mmol/L POC Chloride 106 (101-112) mmol/L Chloride (98-107) mmol/L Carbon Dioxide (21-32) mmol/L POC Total CO2 15 L (24-31) mmol/L Anion Gap (3-11) POC Anion Gap 21.0 (16-25) mmol/L POC BUN 29 H (7-18) mg/dl BUN (7-18) mg/dl Creatinine (0.6-1.2) mg/dl POC Creatinine 1.3 (0.6-1.3) mg/dl Est Cr Clr Drug Dosing ml/min Est GFR ( Amer) Est GFR (Non-Af Amer) BUN/Creatinine Ratio (10-20) Glucose (70-99) mg/dl POC Glucose 530 H* (70-99) mg/dl POC Glucose (other) 462 H* (70-99) mg/dl Calcium (8.5-10.1) mg/dl POC Ioniz Calcium Manuel 1.11 L (1.12-1.32) mmol/l Total Bilirubin (0.2-1) mg/dl AST (15-37) U/L ALT (12-78) U/L Alkaline Phosphatase (45-117) U/L Total Creatine Kinase (26-192) U/L CK-MB (CK-2) (0.5-3.6) ng/ml CK/CKMB % Calc (0-3.0) Troponin I (0-0.045) ng/ml Total Protein (6.4-8.2) gm/dl Albumin (3.4-5.0) gm/dl Globulin (2.5-4.0) gm/dl Albumin/Globulin Ratio (0.9-2) Lipase (73-393) U/L Beta-Hydroxybutyric Acd (0.2-2.81) mg/dl Specimen Hemolysis 06/20/20 06/20/20 06/20/20 Range/Units 22:21 22:21 23:14 WBC (4.8-10.8) K/uL RBC (4.2-5.4) M/uL Hgb (12.0-16.0) g/dL POC Hgb 12.6 (12.0-16.0) g/dl Hct (37-47) % POC Hct 37 (37-47) % MCV (80-100) fL MCH (25-34) pg MCHC (32-36) g/dL RDW Std Deviation (36.4-46.3) fL RDW Coeff of Tosin (11.5-14.5) % Plt Count (130-400) K/uL Immature Gran % (Auto) % Neut % (Auto) % Lymph % (Auto) % Whitley % (Auto) % Eos % (Auto) % Baso % (Auto) % Neut # (Auto) (1.4-6.5) K/uL Lymph # (Auto) (1.2-3.4) K/uL Whitley # (Auto) (0.11-0.59) K/uL Eos # (Auto) (0-0.5) K/uL Baso # (Auto) (0-0.2) K/uL Immature Gran # (Auto) (0.00-0.02) K/uL Absolute Nucleated RBC (0-0) K/uL Nucleated RBC % (auto) % Polychromasia Echinocytes PT 11.1 (9.0-12.0) Seconds INR 1.1 (0.9-1.1) APTT 40.5 H (21.0-31.0) Seconds PTT Ratio 1.5 POC pH 7.03 L* (7.35-7.45) POC pCO2 50 H (35-46) mmHg POC pO2 313 H (80-95) mmHg POC HCO3 13 L (19-24) harriet/L POC Base Excess -18.0 L (-9-1.8) harriet/L POC ABG O2 Sat 100.0 H (90-95) % POC Sodium 132 L (135-144) mmol/L Sodium 138 (136-145) mmol/L POC Potassium 4.3 (3.3-5.0) mmol/L Potassium 5.0 (3.5-5.1) mmol/L POC Chloride (101-112) mmol/L Chloride 102 (98-107) mmol/L Carbon Dioxide 16 L (21-32) mmol/L POC Total CO2 15 L (24-31) mmol/L Anion Gap 19.0 H (3-11) POC Anion Gap (16-25) mmol/L POC BUN (7-18) mg/dl BUN 24 H (7-18) mg/dl Creatinine 1.75 H (0.6-1.2) mg/dl POC Creatinine (0.6-1.3) mg/dl Est Cr Clr Drug Dosing 41.3 ml/min Est GFR ( Amer) 34.8 Est GFR (Non-Af Amer) 30.0 BUN/Creatinine Ratio 13.5 (10-20) Glucose 460 H* (70-99) mg/dl POC Glucose (70-99) mg/dl POC Glucose (other) (70-99) mg/dl Calcium 9.4 (8.5-10.1) mg/dl POC Ioniz Calcium Manuel (1.12-1.32) mmol/l Total Bilirubin 0.4 (0.2-1) mg/dl AST 54 H (15-37) U/L ALT 31 (12-78) U/L Alkaline Phosphatase 188 H (45-117) U/L Total Creatine Kinase 153 (26-192) U/L CK-MB (CK-2) 2.5 (0.5-3.6) ng/ml CK/CKMB % Calc 1.6 (0-3.0) Troponin I 0.177 H* (0-0.045) ng/ml Total Protein 6.5 (6.4-8.2) gm/dl Albumin 2.7 L (3.4-5.0) gm/dl Globulin 3.8 (2.5-4.0) gm/dl Albumin/Globulin Ratio 0.7 L (0.9-2) Lipase 72 L (73-393) U/L Beta-Hydroxybutyric Acd (0.2-2.81) mg/dl Specimen Hemolysis Imaging Data Attestation: I personally reviewed and interpreted this imaging study as follows: My Impression: A 1 view of the chest was interpreted by me and is concerning for florid pulmonary edema. There is an ET tube in place in good position. Radiologist's Impression: [facility], [place] [phone] XRay Report Patient: ROBERT QUINTANILLA Date: 06/20/20 MR#: [id number]: 574 [facility] Acct ID:[id number]: Date: [address] [place] [address] Zip: [place] [address] Age: 64Location: 1E Sex: FRoom/Bed: [facility] Att Phy: Andrew Gonzalez D.O.Diagnosis: CARDIAC ARREST Arely Phy: Glenny Correa CRNPService Date: 06/20/20 Fam Phy:Interpreting Phy: Dash Nolasco MD Admit Phy: Isrrael Joseph MD Ordering Phy: Mandeep Coronado MD cc: ~ XR chest 1V portable HISTORY: Atypical Chest Pain COMPARISON: Chest 12/09/2019. FINDINGS: Rotated study. Endotracheal tube terminates 1.8 cm from the duong. No pneumothorax. Right greater than left interstitial thickening with perihilar airspace opacities. This favors asymmetric pulmonary edema. No pleural effusions. Left-sided dual-chamber pacemaker. The heart is normal in size. IMPRESSION: 1. Rotated study. Endotracheal tube terminates approximately 1.8 cm from the duong. 2. Right greater than left interstitial thickening with perihilar airspace opacities. This is concerning for moderate to severe pulmonary edema. ACT 112: Negative or not required by law. Electronically signed by: Dash Nolasco M.D. 06/21/2020 7:54 AM Dictated: 06/21/20751 Transcribed: 06/21/20751 [place], [place] [phone] CT Scan Report Patient: ROBERT QUINTANILLA Date: 06/20/20 MR#: [id number]: [address] Acct ID:[id number]: Date: [address] [place] [address] Zip: [place] [address] Age: 64Location: 1E Sex: FRoom/Bed: [facility] Att Phy: Andrew Gonzalez, DJudithO.Diagnosis: CARDIAC ARREST Arely Phy: Glenny Correa CRNPService Date: 06/20/20 Fam Phy:Interpreting Phy: Can Blevins MD Admit Phy: Isrrael Joseph MD Ordering Phy: Mandeep Coronado MD cc: ~ CT OF THE ABDOMEN AND PELVIS WITH CONTRAST CLINICAL HISTORY: Cardiac arrest. COMPARISON STUDY: CT of the abdomen and pelvis November 24, 2019. TECHNIQUE: Following IV administration of 119 mL of Optiray-320, axial images of the abdomen and pelvis were obtained from the lung bases to the proximal femurs. Images were reviewed in the axial, sagittal, and coronal planes. IV contrast was administered without complication. Automated exposure control was utilized for the study. A dose lowering technique was utilized adhering to the principles of ALARA. CT DOSE: 3592.76 mGy.cm FINDINGS: Please note that the chest CT will be reported separately. Note is made of interlobular septal thickening and groundglass opacities within lungs consistent with pulmonary edema. In addition, there is moderate bilateral lower lobe airspace opacity. There are trace bilateral pleural effusions. Multiple acute anterior nondisplaced bilateral rib fractures are partially imaged on this examination. A right femoral central venous catheter is in place. The tip is within the IVC. The liver, spleen, adrenal glands and pancreas are unremarkable. There is no biliary ductal dilatation status post cholecystectomy. A large left lateral abdominal wall hernia is again noted which contains multiple bowel loops. Portion of the abdomen is not included on this exam. However, there is no convincing evidence for a bowel obstruction. Right colon is fluid-filled with poorly formed stool. A Brown balloon within the bladder is noted. There is no pelvic lymphadenopathy. A left periaortic density adjacent to the abdominal aorta is unchanged from earlier exams. There is extensive aortoiliac calcified plaque. Bilateral common iliac artery stents are suboptimally assessed on this non-CTA exam. There is no hydronephrosis. Moderate left renal atrophy is noted. There is mild right renal atrophy. Heterogeneous enhancement of both kidneys is noted. IMPRESSION: 1. Heterogeneous enhancement of both kidneys with striated nephrograms. The appearance is nonspecific and could be correlated with renal function. 2. Redemonstration of the large left lateral abdominal wall hernia which contains multiple bowel loops without resultant obstruction. Portion of the abdomen excluded on this exam. 3. Evidence for pulmonary edema. In addition, bilateral lower lobe airspace opacities which may reflect pneumonia or sequela of aspiration. Trace bilateral pleural effusions. 4. Numerous acute nondisplaced anterior bilateral rib fractures. ACT 112: Negative or not required by law. Electronically signed by: Can Blevins M.D. 06/21/2020 7:43 AM Dictated: 06/21/2024 Transcribed: 06/21/20725 [place], [place] [phone] CT Scan Report Patient: ROBERT QUINTANILLA Date: 06/20/20 MR#: [id number]: [address] [facility] Acct ID:[id number]: Date: [address] [place] [address] Zip: [place] [address] Age: 64Location: 1E Sex: FRoom/Bed: E102-1 Att Phy: Andrew Gonzalez D.O.Diagnosis: CARDIAC ARREST Arely Phy: Glenny Correa, CRNPService Date: 06/20/20 Fam Phy:Interpreting Phy: Dash Nolasco MD Admit Phy: Isrrael Joseph MD Ordering Phy: Mandeep Coronado MD cc: ~ CHEST CTA for PULMONARY ARTERIES CT DOSE: HISTORY: Shortness of breath. Intubation. TECHNIQUE: Multiaxial CT images of the chest were performed following the intravenous administration of contrast to evaluate the pulmonary arteries. Maximal intensity projection images were also obtained. A dose lowering technique was utilized adhering to the principles of ALARA. COMPARISON STUDY: Chest CT 05/14/2018. FINDINGS: Endotracheal tube terminates 3.5 cm from the duong. The heart is mildly enlarged. No pleural or pericardial effusions. Proximal left subclavian artery stent is patent. No evidence for an aortic dissection. There is moderate calcified plaque within the aortic arch. No filling defects within the pulmonary arteries to suggest pulmonary embolus. Limited views of the upper abdomen demonstrate a normal liver and spleen. The visualized adrenal glands unremarkable. There is a tip of a femoral catheter seen at the suprahepatic IVC. Normal esophagus. No mediastinal hilar lymphadenopathy. Left-sided pacemaker is noted. No pneumothorax. Trace mucoid material within the trachea. Diffuse interlobular septal thickening consistent with pulmonary edema with scattered groundglass densities. There is also consolidative airspace opacities seen within the lower lobes and upper lobes posteriorly. IMPRESSION: 1. No evidence for pulmonary embolus. 2. Moderate to severe pulmonary edema. 3. Endotracheal tube terminates 3.5 cm from the duong. 4. The tip of a right femoral catheter terminates at the suprahepatic IVC. 5. Patchy areas of consolidation within the bilateral lower lobes and upper lobes posteriorly. This could be due to pulmonary edema or a superimposed pneumonia. ACT 112: Negative or not required by law. Electronically signed by: Dash Nolasco M.D. 06/21/2020 8:14 AM Dictated: 06/21/20808 Transcribed: 06/21/20808 [place], [place] [phone] CT Scan Report Patient: ROBERT QUINTANILLA Date: 06/20/20 MR#: [id number]: [id number]: [facility] Zip[facility] [place] [address] Age: 64Location: 1E Sex: FRoom/Bed: [facility] Att Phy: Andrew Gonzalez D.O.Diagnosis: CARDIAC ARREST Arely Phy: Glenny Correa CRNPService Date: 06/20/20 Fam Phy:Interpreting Phy: Can Blevins MD Admit Phy: Isrrael Joseph MD Ordering Phy: Mandeep Coronado MD cc: ~ CT OF THE HEAD WITHOUT CONTRAST CLINICAL HISTORY: Cardiac arrest. COMPARISON STUDY: Head CT December 09, 2019. TECHNIQUE: Helical axial images of the head were obtained without IV contrast. Automated exposure control was utilized for the study. A dose lowering technique was utilized adhering to the principles of ALARA. FINDINGS: No acute intracranial hemorrhage, midline shift or mass effect is present. White matter hypodense foci are unchanged since MRI of December 08, 2022 The ventricular system is unremarkable. The basilar cisterns are patent. No extra-axial collections are present. There are no findings to suggest acute dural sinus thrombosis or acute territorial infarct. No significant calvarial abnormalities are present. Note is made of air-fluid levels within the bilateral maxillary and sphenoid sinuses with mucosal thickening within the ethmoid sinuses. IMPRESSION: No acute intracranial findings. No change in appearance of the brain. ACT 112: Negative or not required by law. Electronically signed by: Can Blevins M.D. 06/21/2020 7:21 AM Dictated: 06/21/20718 Transcribed: 06/21/20718 ECG Data Attestation: I personally reviewed and interpreted this ECG as follows: Indication: + other (Cardiac arrest) Rate (beats per minute): 151 Rhythm: + atrial fibrillation (with RVR) ECG Intervals/blocks: + Right Bundle branch block and + Normal QT-c (485) ECG [place]: + Normal ECG ST segments: + ST depression (Lateral); no ST elevation Comparison ECG Date: from (03/07/2020) Change: the following changes noted (afib has replaced NSR, RBBB present, lateral infarct present ) MDM Narrative Patient was seen and evaluated as above in room A1. Review was performed of nursing notes and vital signs. I did review pertinent previous visits and patient history. After obtaining a thorough history and physical examination the above work up was performed. This 64-year-old female who arrives in cardiac arrest. Both a heart alert and a CODE BLUE were initiated. The patient received 3 rounds of epi along with bicarb and had a spontaneous return of pulses. Arctic protocol was then initiated. The patient was started on dopamine and given Lasix for what appears to be florid pulmonary edema on the chest x-ray. Intubation was performed by Dr. Knox please see his note. While in the department, I personally reevaluated the patient several times and each time the patient was found to be resting comfortably. The patient was educated upon management, educated upon todays findings/results, educated upon importance of follow up from today's visit, educated upon symptoms in which to return, had questions answered prior to discharge, verbalized understanding, and was discharged home in good condition. [] An order was placed for continuous cardiac monitoring. The monitor shows a rate of [] with [] rhythm. I attest that I have personally reviewed the patient medication list. I attest that I have reviewed the patient's blood pressure and it was found to be [] GCS: 15 The patient was evaluated during the global COVID-19 pandemic, and that diagnosis was suspected/considered upon their initial presentation. Their evaluation, treatment and testing was consistent with current guidelines for patients who present with complaints or symptoms that may be related to COVID- 19. Impression & Plan Cardiac arrest, DKA (diabetic ketoacidosis), ANNETTE (acute kidney injury), Pulmonary edema Discharge Plan Visit Data Chief Complaint: Heart Alert ED Provider: Mandeep Coronado Discharge Problem: Cardiac arrest, DKA (diabetic ketoacidosis), ANNETTE (acute kidney injury), Pulmona ry edema Patient Disposition: Still a Patient Discharge Instructions Interventions: ED Discharge Assessment Last Done: 06/20/20 22:35 Discharge Problem: DKA (diabetic ketoacidosis) Qualifiers: Diabetes mellitus type: other specified (including KIM) Diabetes mellitus complication detail: without coma Qualified Code(s): E13.10 - Other specified diabetes mellitus with ketoacidosis without coma Pulmonary edema Qualifiers: Chronicity: acute Qualified Code(s): J81.0 - Acute pulmonary edema
[2020-06-20] MEDS ORDERED: SODIUM BICARB 8.4% INJ 50 MEQ/50 ML SYR IV ONE (23:16)
[2020-06-20 23:34] LABS: Basophils # (auto) 0.13 K/uL (0-0.2); Basophils % (auto) 0.6 %; Echinocytes 1+; Eosinophils # (auto) 0.44 K/uL (0-0.5); Eosinophils % (auto) 1.9 %; Immature Granulocytes # (auto) 0.72 K/uL (0.00-0.02); Immature Granulocytes % (auto) 3.1 %; Lymphocytes # (auto) 10.49 K/uL (1.2-3.4); Lymphocytes % (auto) 45.5 %; Monocytes # (auto) 2.27 K/uL (0.11-0.59); Monocytes % (auto) 9.8 %; Neutrophils % (auto) 39.1 %; Polychromasia 1+
--- NOTE | 2020-06-20 23:34 | Emergency Department Note ---
ED Visit Note I assisted the CODE BLUE effort by providing endotracheal intubation. Please see the note below. INTUBATION: Indication: Cardiac arrest. The patient was on 100% via [id number] prior to the procedure. Suction, airway equipment, respiratory equipment, and appropriate personnel were prepared prior to the initiation of the procedure. As the patient was obtunded and unresponsive no medication was given for intubation. A 7.0 ETT tube was placed atraumatically using standard technique at 24 cm with a glide scope. The cuff inflated without signs of malfunction. There were bilateral breath sounds, positive colormetric change, no gastric sounds, and post procedure pulse oximetry was 90 %. Post procedure chest x-ray confirmed the tube to be in the trachea in good position. CHF noted. There were no complications. .
[2020-06-20] MEDS ORDERED: ICU PROTOCOL FOR HYPERGLYCEMIA PRN (23:42)
[2020-06-20] MEDS ORDERED: fentaNYL DRIP 1,250 MCG/250 ML BAG IV SCH (23:45)
[2020-06-20] MEDS ORDERED: busPIRone 15 MG TAB NG PRN (23:51)
[2020-06-20] MEDS ORDERED: ARTIFICIAL TEARS OP OINT 3.5 GM TUBE OP PRN (23:51)
[2020-06-20] MEDS ORDERED: ACETAMINOPHEN 650 MG SUPP PR PRN (23:51)
[2020-06-20] MEDS ORDERED: MEPERIDINE HCL 25 MG/ML CARP/VIAL IV PRN (23:51)
[2020-06-20] MEDS ORDERED: STAT IV Infusion **Titration per Protocol STA (23:56)
--- NOTE | 2020-06-20 23:56 | Cardiac Catheterization ---
[facility] Data: [place] Cardiac Status Clinical evaluation leading to the procedure CAD Presenation: Non STEMI Anginal Classification: CCS IV Heart Failure: NYHA Class: CCS IV Cardiogenic Shock within 24 Hours: Yes Cardiac Arrest within 24 Hours: Yes Imaging Studies Past 6 Months: No Stress Studies Past 6 Months: No Diagnostic Physicians Name: Isrrael Joseph MD Status: Urgent Closure Device Percutaneous Entry Location: Ulnar Closure Device: Radial Band Recommendations: Medical Therapy and/or Counseling Intraprocedure Events Significant Disection: No Perforation: No Cardiac Cath Procedure Full Procedure Date June 20, 2020 Pre-Procedure Diagnosis Pre-Procedure Diagnosis: Cardiothoracic Symptom (Cardiac arrest) AUC Score AUC Score: 8 Post-Procedure Diagnosis Post-Procedure Diagnosis: Severe CAD and Elevated Intracardiac Pressures Procedure(s) Performed Procedure(s) Performed: Coronary Angiography, Left Heart Cath, Ultrasound Guided Vascular Access and Procedure (CVC placement - cooling catheter) [employer] Isrrael Joseph MD Radiology Transporter(s) Angela Estimated Blood Loss Estimated Blood Loss: 10 Medication(s) Medication(s): Fentanyl, Lidocaine 1%, Metoprolol and Versed Summary of Findings Indication: Acute onset chest pain, dyspnea. Initial ECG with questionable inferolateral ST elevations. PEA cardiac arrest in route to hospital. CPR 10-15 before ROSC. Access: 6Fr slender right ulnar artery with ultrasound guidance. Catheters: tiger, pigtail Findings: LM - Luminal irregularities LAD - large in caliber, 10-20% stenosis in early mid segment, distal luminal irregularities. Provides left to right collaterals to PDA - 1st diagonal small with 20% ostial stenosis Circumflex - Moderate caliber vessel, gives off 2 moderate caliber high OMs without significant disease. Provides left to right collaterals to R-PLB RCA - Dominant, Occluded proximally with right to right collaterals to mid segment and RV branch. Mid segment than occluded. PDA/PLB fills via left to right collaterals. LVEDP - 20 Arterial Closure: TR Band Summary: 1. Severe single vessel coronary artery disease (unchanged from 05/2018). - 100% chronic total occlusion of RCA with left to right and right to right collaterals 2. Mildly elevated intracardiac filling pressure 3. Successful placement of RT femoral vein cooling catheter. Recommendations: Cardiac arrest not secondary to ACS. Targeted temperature management per ICU. Device interrogation, Echo in AM. Hemodynamics Rest Ao:: 156/70/100 Final Ao: 164/70/109 LV: 181/20 Recommendations Recommendations: Medical Therapy and/or Counseling Specimens Specimens: None Radiation Exposure (mGy) 839 Contrast (mls) 20 Fluids (cc crystalloids) Fluids (cc crystalloids): 250 Drains Drains: none Anesthesia moderate Procedural Complication(s) None Disposition ICU I attest to the content of the Intraoperative Record and any orders documented therein. Any exceptions are noted below. [facility] Card Cath Procedure Codes Cardiac Catheterization Procedure 1: Cardiovascular Cath Procedures: 49495 Coronaries and LHC (+/-LV) Therapeutic Services & Ancillary Proc Procedure 1: Cardiovascular Tx and Anc Procedures: 68846 Ultrasonic Guidance Vascular Access Procedure 2: Cardiovascular Tx and Anc Procedures: 52026 Ultrasonic Guidance Vascular Access Procedure 3: Cardiovascular Tx and Anc Procedures: 61471 Insertion Central Venous Catheter Moderate Sedation Procedure 1: Sedation/Anesthesia: 70714 Mod Sedation by the same physician;Init15 Min Child Age 5 & Up PG Care Time/CCT Total # of Minutes Spent Total Time Spent with Patient: Total time spent is greater than 50% in coordina tion of care (as documented) at patient's floor/unit and/or counseling patient:
[2020-06-20 23:59] LABS: iSTAT Arterial Blood Gas HCO3 13 meg/L (19-24); iSTAT Arterial Blood Gas pCO2 50 mmHg (35-46); iSTAT Arterial Blood Gas pH 7.03 (7.35-7.45); iSTAT Arterial Blood Gas pO2 313 mmHg (80-95); iSTAT Carbon Dioxide 15 mmol/L (24-31); iSTAT Hematocrit 37 % (37-47); iSTAT Hemoglobin 12.6 g/dl (12.0-16.0); iSTAT Potassium 4.3 mmol/L (3.3-5.0); iSTAT Sodium 132 mmol/L (135-144)
[2020-06-21] MEDS ORDERED: ALBUT/IPRATROP 3MG/0.5MG NEB 3 ML VIAL NEB PRN (00:01)
[2020-06-21] MEDS ORDERED: OPTIRAY 320 125ml IV ONE (00:19)
--- NOTE | 2020-06-21 00:54 | Procedure Note ---
Procedure Note Date of Service June 21, 2020 Note ARTERIAL LINE PROCEDURE NOTE: Procedure: Arterial Line Placement Attending: Dr. Eran Mckeon Provider: MANUEL Hope Indication: Monitoring on Pressors, continuous monitoring during therapeutic hypothermia Anesthesia: None Line placed emergently following cardiac arrest with achievement of ROSC A time-out was completed verifying correct patient, procedure, site, positioning, and implant(s) or special equipment if applicable. Patient left groin was prepped and draped in the usual sterile fashion. Ultrasound guidance was used to aid needle placement. An introducer needle was inserted into the left femoral artery with ultrasound guidance and good blood flow observed. Wire was threaded and introducer needle removed. Catheter was exchanged over the wire and wire was removed intact. Good waveform was observed on monitor. Catheter was sutured in place and sterile dressing applied. The patient tolerated the procedure well. Confirmation of placement with ultrasound. Blood Loss: Minimal Complications: None Procedural Ultrasound Guidance: Procedure Date: 06/21/2020 Indication: Arterial line insertion Attending: Dr. Eran Mckeon Provider: MANUEL Hope Artery Identified: YES Line confirmed in Artery with ultrasound: Yes Complications: NONE Patient tolerated procedure: WELL Coding CPT Codes Tubes, Drains, and Vasc Access - Tubes, Drains, and Vasc Access: [id number] Place Catheter In Artery ([id number]) Tubes, Drains, and Vasc Access - Tubes, Drains, and Vasc Access: [id number] Place Catheter In Artery ([id number]) [facility] Procedure Codes (Charges) Tubes, Drains, and Vasc Access Procedure 1: Tubes, Drains, and Vasc Access: [id number] Place Catheter In Artery Procedure 2: Tubes, Drains, and Vasc Access: [id number] Place Catheter In Artery
--- NOTE | 2020-06-21 00:55 | Critical Care Consultation ---
Date of Consultation June 21, 2020 Assessment & Plan (1) Cardiac arrest: Reason Critically Ill: 64-year-old female presents to the ICU following cardiac arrest. Mechanically ventilated and now undergoing therapeutic hypothermia. Neuro - Sedation: Propofol/fentanyl Anoxic injuryneurological exam as above. -CT head unremarkable -Cooling cath inserted in [facility] and initiating therapeutic hypothermia protocol, will reevaluate once rewarmed Cardiac - Cardiac arrestpatient reported having sudden onset of chest pain and was found to be diaphoretic by EMS, became unresponsive and pulseless in route to hospital -Unsure of etiology at this time, patient taken to [facility] for heart alert and did not require intervention. Per conversation with interventional cardiology, thought to be nonischemic in origin -Patient does have pacemaker, will undergo interrogation in the a.m. -Currently requiring low-dose levo fed, follow-up echo in a.m. Respiratory - Mechanically ventilatedintubated during code/cardiac arrest -Chest x-ray with significant acute pulmonary congestion predominantly in the right lung -Sats improving with ventilator support, continue to trend ABGs and wean vent as tolerated -Chest x-ray in a.m. -We will hold on diuresis for the time being as patient is requiring vasopressors at this time -Continuous monitoring on pulse ox GI - N.p.o. CT abdomen unremarkable OG tube to intermittent low wall suction RENAL/LYTES - Metabolic acidosissevere lactic acidosis of 9 following cardiac arrest, likely ischemic -We will trend for now, expect to improve -pH 7.25, no indication for bicarb drip at this time but will continue to monitor with routine ABGs ANNETTE on CKDlikely prerenal/ATN following cardiac arrest -We will continue to trend creatinine, BMPs, urine output frequently as patient is high risk of developing ARF -Avoid nephrotoxins and renally adjust meds -Maintain maps greater than 65 for renal perfusion -Continue soft IV fluid resuscitation Monitor frequent electrolytes per therapeutic hypothermia protocol - Foleystrict I's and O's ENDO - Uncontrolled diabetespatient presents significantly hyperglycemic -Insulin infusion initiated per ICU hyperglycemic protocol -Hold oral home meds HEME - H&H stable, monitor routine CBCs Patient did have epistaxis following cardiac arrest and is on Xarelto 15 mg -Once patient was stabilized ED physician did insert nasal packing which will need to be removed within 72 hours -Currently no further signs of nasal bleeding ID - No evidence of infectious process at this time, leukocytosis likely reactionary following code and elevated lactate likely ischemic -Holding on antibiotics for now LINES/IV ACCESS - Cooling cath, A-line, PIV's, ETT, OGT, Brown DVT PROPHYLAXIS - SCDs, will hold anticoagulation for now as patient is on Xarelto I have personally spent 85 minutes of critical care time in the direct management of this patient. This is a life/limb threatening event. This includes time spent evaluating patient, direct bedside care, chart review, placing orders, interpretation of diagnostic studies, discussion with consultants, patient, and family members, as well as other required patient management activities. This time is exclusive of all separately billable procedures, and teaching time and separate from and in addition to any other critical care service time. Thank you for allowing us to participate in the care of this patient. Please refer to my attending physician's documentation for any further recommendations. (2) CKD (chronic kidney disease): (3) COPD, moderate: (4) SSS (sick sinus syndrome): (5) Left ventricular diastolic dysfunction: (6) Obesity: (7) CAD (coronary artery disease): (8) Paroxysmal SVT (supraventricular tachycardia): (9) PAD (peripheral artery disease): (10) Hx of non-ST elevation myocardial infarction (NSTEMI): (11) HLD (hyperlipidemia): (12) HTN (hypertension): (13) Hypoxia: (14) Dyspnea: (15) Status cardiac pacemaker: History of Present Illness Attending Physician: Isrrael Joseph MD History of Present Illness Ms. Sanz is a 64-year-old female with extensive past medical history including diastolic heart failure, COPD, peripheral vascular disease, GI bleed, uncontrolled DM type II, sick sinus syndrome (s/p pacemaker), and N STEMI. She was seen by EMS responded for chest pain and was noted to be diaphoretic and pallor. There was concern for inferior ST elevation on her EKG, and during route to the emergency department the patient went unresponsive and was found to be without pulse. CPR was administered and patient arrived to the emergency department pulseless. ROSC was achieved approximately 20 minutes after initial code. Patient was intubated in the emergency department and was taken for emergent heart cath. She was noted to have 100% RCA occlusion with collateral flow, but no indication for intervention and because of cardiac arrest unlikely ischemic per conversation with recruitment officer. Patient was then transferred to the ICU to undergo therapeutic hypothermia as she was unresponsive following ROSC and likely sustained significant anoxic injury. I did speak with the patient's family in regards to CODE STATUS. Patient was noted to be DNR on multiple previous admissions. Family states that per her wishes she would want to be DNR. Per our conversation, since she is currently intubated and has been resuscitated, we will proceed with medical management and therapeutic hypothermia. However, if patient is to undergo cardiac arrest we will not proceed with CPR/shocks or resuscitation. Allergies Allergy/AdvReac Type Severity Reaction Status Date / Time clopidogrel [From Plavix] AdvReac Mild Verified 05/06/20 12:37 Home Medications Home Medications Medication Instructions Recorded Confirmed Type nitroglycerin 0.4 mg sublingual 0.4 mg SL Q5M PRN #1 tab 06/08/19 05/13/20 History tablet Spiriva Respimat 2 puffs INH QAM 07/18/19 05/13/20 History albuterol sulfate 90 mcg/actuation 2 puffs INH Q6H PRN #8 gm 10/08/19 05/13/20 Rx aerosol inhaler Robitussin Cough-Chest Noé DM 10 ml PO Q6H PRN #237 ml 11/22/19 05/13/20 Rx lorazepam 0.5 mg tablet 0.5 mg PO BID PRN #60 tab 11/27/19 05/13/20 Rx magnesium oxide 400 mg (241.3 mg 400 mg PO QAM #90 tab 11/27/19 05/13/20 Rx magnesium) tablet rosuvastatin 40 mg tablet 40 mg PO QAM #90 tab 01/30/20 05/13/20 Rx ticagrelor 90 mg tablet 90 mg PO BID #180 tab 02/11/20 05/13/20 Rx metoprolol tartrate 100 mg tablet 100 mg PO BID #180 tab 02/16/20 05/13/20 Rx pramipexole 1 mg tablet 1 mg PO BID #180 tab 03/01/20 05/13/20 Rx cannabidiol 100 mg PO Q2H 03/07/20 05/13/20 History rivaroxaban [Xarelto] 15 mg PO QDD #30 tab 03/08/20 05/13/20 Rx FreeStyle Rosales 14 Day Sensor #2 ea NS 03/10/20 05/13/20 Rx pen needle, diabetic 31 gauge x #100 ea 03/16/20 05/13/20 Rx 5/16" pregabalin 75 mg capsule 75 mg PO TID #90 cap 04/12/20 05/13/20 Rx CPAP Machine #1 ea 05/13/20 05/13/20 Rx metformin 1,000 mg tablet 1,000 mg PO BID #60 tab 05/18/20 Rx ipratropium 0.5 mg-albuterol 3 mg 3 ml INH Q4H PRN #180 ml 05/20/20 05/20/20 Rx (2.5 mg base)/3 mL nebulization soln duloxetine 60 mg capsule,delayed 60 mg PO QAM #90 cap 05/24/20 Rx release diltiazem HCl 240 mg 240 mg PO QAM #90 cap 06/03/20 Rx capsule,extended release 24 hr insulin degludec 100 unit/mL (3 See Rx Instructions SQ DAILY #60 ml 06/14/20 Rx mL) subcutaneous pen Patient History Medical History (Updated 06/21/20 @ 22:33 by Andrew Gonzalez DO) ANNETTE (acute kidney injury) Altered mental status Bulging discs Degenerative disc disease Depression with anxiety Hx of non-ST elevation myocardial infarction (NSTEMI) 05/2018 Hypokalemia Hyponatremia Hypoxia Medical marijuana use Metabolic encephalopathy Myocardial Infarction 05/2018 - [facility] Obesity Pacemaker 05/2015 - Sick sinus syndrome - Last checked 02/2019 ([facility]) - [employer] Plavix resistance Non-responder to Plavix per [place] genetic testing. Per Dr. Zarate, her vascular surgeon. Restless legs Rheumatoid arthritis Spinal stenosis Surgical History History of cardiac cath 05/2018 - MD - NO STENTS/ANGIOPLASTY - COLLATERAL CIRCULATION - FOLLOWS W/ DR. ERWIN History of carotid endarterectomy History of cataract surgery BILATERAL History of cholecystectomy History of intravascular stent placement Multiple stents in bilateral legs, left subclavian, left aortic mesenteric bypass, left carotid endarterectomy History of oral surgery History of tonsillectomy History of tooth extraction Family History Mother , Heart Disease Ruptured Appendix No problems noted. Father , with Vascular and Colon Can No problems noted. Sister No problems noted. Grandfather (Maternal) Family history of diabetes mellitus Social History Smoking Status: Former smoker Cigarettes Per Day: 1 pack a day; Second Hand Exposure: No; Do You Dip or Chew Tobacco: No; Tobacco Cessation Education Requested by Patient: No Hx Alcohol Use: Yes Alcohol type: beer, wine and hard liquor Hx Substance Use: Yes Last Used Substance: Unknown Last Used Substance Other:: today 03/07/2020 Substance Use Type Other:: "vaping THC" Preferred Language: Croatian Communication Ability: Effective Visual Impairment: No Limitations [employer]cher[employer] Supervisor Required: No Beliefs That Will Affect Care: None marital status: Current Living Situation: Family Current Living Situation Comment: Lives with sister How many Children do You have: 0 Other Information That Helps Us Care for You: No Feels Safe at Home: Yes Safety Concerns: Feels Safe At This Time Assistive Devices: Oxygen - Continuous Review of Systems Review of Systems: Unobtainable due to cognitive status and Unobtainable due to endotracheal tube Physical Exam Constitutional: + obese and + mechanically ventilated Eyes: Pupils fixed, nonreactive ENMT: Nose: + epistaxis Neck: trachea midline, no thyromegaly Respiratory: Mechanically ventilated, symmetrical chest wall movement, fine crackles auscultated bilaterally in all lung lemus Cardiovascular: RRR, no murmur, no edema Heart Sounds: normal S1 and normal S2 Vessels: no JVD Extremities: normal capillary refill; no edema Gastrointestinal (Abdomen): Abdomen obese, soft, normal bowel sounds Skin: no rashes, warm and dry Neurologic: Patient does have cough gag and corneals intact. Pupils are fixed and nonreactive. She does not follow commands. She non-localizes to noxious stimuli. Psychiatric: Unable to assess Genitourinary: Indwelling Brown catheter Results & Data Results & Data ([facility]) Vital Signs (Past 12 Hours) Vital Signs Pulse Resp BP Pulse Ox 06/21/20 00:24 103 H 28 H 100 06/20/20 22:31 105 H 91/56 L 97 06/20/20 22:30 125 H 19 100 06/20/20 22:28 138 H 20 136/76 95 06/20/20 22:25 138 H 22 110/76 90 06/20/20 22:22 130 H 20 98/76 L 89 L 06/20/20 22:21 113 H 23 88 L Coding Level of Care Code Critical Care ea addt'l 30 min Diagnoses Cardiac arrest I46.9 CKD (chronic kidney disease) N18.9 COPD, moderate J44.9 SSS (sick sinus syndrome) I49.5 Left ventricular diastolic dysfunction I51.9 Obesity E66.9 CAD (coronary artery disease) I25.10 Associated angina: without angina Coronary Disease-Associated Artery/Lesion type: [place] artery [place] vs. transplanted heart: [place] heart Paroxysmal SVT (supraventricular tachycardia) I47.1 PAD (peripheral artery disease) I73.9 Hx of non-ST elevation myocardial infarction (NSTEMI) I25.2 HLD (hyperlipidemia) E78.2 Hyperlipidemia type: mixed hyperlipidemia HTN (hypertension) I10 Hypertension type: essential hypertension Hypoxia R09.02 Dyspnea R06.00 Status cardiac pacemaker Z95.0 (1) CAD (coronary artery disease) Associated angina: without angina Coronary Disease-Associated Artery/Lesion type: [place] artery [place] vs. transplanted heart: [place] heart Qualified Code(s): I25.10 - Atherosclerotic heart disease of [place] coronary artery without angina pectoris (2) HLD (hyperlipidemia) Hyperlipidemia type: mixed hyperlipidemia Qualified Code(s): E78.2 - Mixed hyperlipidemia (3) HTN (hypertension) Hypertension type: essential hypertension Qualified Code(s): I10 - Essential (primary) hypertension
[2020-06-21 01:16] LABS: Hematocrit (blood only) 38.2 % (37-47); Hemoglobin 11.3 g/dL (12.0-16.0); Mean Corpuscular Hemoglobin 25.1 pg (25-34); Mean Corpuscular Volume 84.7 fL (80-100); Nucleated RBC # (auto) 0.08 K/uL (0-0); Nucleated RBC % (auto) 0.3 %; Platelet Count 214 K/uL (130-400); RDW Coefficient of Variation 18.4 % (11.5-14.5); RDW Standard Deviation 57.3 fL (36.4-46.3); Red Blood Count 4.51 M/uL (4.2-5.4); White Blood Count 28.77 K/uL (4.8-10.8)
[2020-06-21 01:17] LABS: Mean Corpuscular Hgb Conc 29.6 g/dL (32-36)
[2020-06-21 01:27] LABS: INR 1.1 (0.9-1.1); Partial Thromboplastin Time 28.6 Seconds (21.0-31.0); Prothrombin Time 11.7 Seconds (9.0-12.0)
[2020-06-21] MEDS ORDERED: ICU PROTOCOL FOR HYPERGLYCEMIA PRN (01:29)
[2020-06-21 01:34] LABS: iSTAT Art Bld Gas pCO2 Correct 41 mmHg (35-46); iSTAT Art Bld Gas pH Corrected 7.252 (7.35-7.45); iSTAT Arterial Blood Gas HCO3 19 meg/L (19-24); iSTAT Arterial Blood Gas pCO2 47 mmHg (35-46); iSTAT Arterial Blood Gas pH 7.21 (7.35-7.45); iSTAT Arterial Blood Gas pO2 81 mmHg (80-95); iSTAT Arterial Blood Gas pO2 C 64; iSTAT Carbon Dioxide 20 mmol/L (24-31); iSTAT FiO2 50 %; iSTAT Hematocrit 38 % (37-47); iSTAT Hemoglobin 12.9 g/dl (12.0-16.0); iSTAT Potassium 4.1 mmol/L (3.3-5.0); iSTAT Site Art Line; iSTAT Sodium 135 mmol/L (135-144)
[2020-06-21] MEDS ORDERED: INSULIN PROTOCOL GOAL RANGE ONE ×2 (01:35→14:54)
[2020-06-21 01:37] LABS: BUN Creatinine Ratio 13.2 (10-20); Blood Urea Nitrogen 26 mg/dl (7-18); Carbon Dioxide 19 mmol/L (21-32); Chloride 100 mmol/L (98-107); Creatine Kinase MB 8.1 ng/ml (0.5-3.6); Est GFR (African American) 30.5; Est GFR (Non-African American) 26.3; Glucose 480 mg/dl (70-99); Magnesium 2.6 mg/dl (1.8-2.4); Potassium 4.3 mmol/L (3.5-5.1); Sodium 138 mmol/L (136-145)
[2020-06-21 01:39] LABS: Basophils # (auto) 0.05 K/uL (0-0.2); Basophils % (auto) 0.2 %; Eosinophils # (auto) 0.13 K/uL (0-0.5); Eosinophils % (auto) 0.5 %; Immature Granulocytes # (auto) 0.41 K/uL (0.00-0.02); Immature Granulocytes % (auto) 1.4 %; Lymphocytes # (auto) 2.03 K/uL (1.2-3.4); Lymphocytes % (auto) 7.1 %; Monocytes # (auto) 1.59 K/uL (0.11-0.59); Monocytes % (auto) 5.5 %; Neutrophils # (auto) 24.56 K/uL (1.4-6.5); Neutrophils % (auto) 85.3 %; Poikilocytosis Present; Polychromasia 1+
[2020-06-21] MEDS ORDERED: PHARMACY GLYCEMIC MGMT CONSULT PRN (01:43)
[2020-06-21] MEDS: MAGNESIUM SULFATE / D5W 1 GM/100 ML BAG IV SCH ×2 (01:54→03:39)
[2020-06-21 01:55] LABS: Beta-Hydroxybutyrate 5.09 mg/dl (0.2-2.81)
[2020-06-21] MEDS: propofoL 1,000 MG/100 ML VIAL IV SCH ×5 (01:55→22:22)
[2020-06-21 01:56] LABS: Troponin I 0.618 ng/ml (0-0.045)
[2020-06-21] MEDS: NOREPINEPHRINE BIT INJ 8 MG in DEXTROSE 5% 500 ML IV SCH (01:56)
[2020-06-21] MEDS: SODIUM CHLORIDE 0.9% 1000ML 1,000 ML IV SCH ×3 (01:57→21:51)
[2020-06-21] MEDS ORDERED: GLUCOSE 40% GEL 15 GM TUBE PO PRN (02:00)
[2020-06-21] MEDS ORDERED: GLUCAGON FOR INJ 1 MG VIAL IM PRN (02:00)
[2020-06-21] MEDS: INSULIN REGULAR 250 UNITS in SODIUM CHLORIDE 0.9% 247.5 ML IV SCH (02:00)
[2020-06-21] MEDS ORDERED: CARBOHYDRATES FOR HYPOGLYCEMIA PO PRN (02:00)
[2020-06-21] MEDS ORDERED: NovoLIN-R BOLUS FROM BAG IV ONE (02:00)
[2020-06-21] MEDS ORDERED: GLUCOSE 10 TABS/TUBE PO PRN (02:00)
--- NOTE | 2020-06-21 02:06 | History & Physical Report ---
Date of Service June 21, 2020 Assessment & Plan (1) Cardiac arrest: Status post cardiac arrest in the field, where she was intubated, and remains intubated to be admitted to the intensive care unit. Cardiac catheterization revealed chronic RCA occlusion, without interventions to be done. Plans to interrogate pacer in the a.m. Due to ROSC, patient will be placed on hypothermic protocol. Echocardiogram in a.m. Consult cardiology Dr. Joseph. 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 Mckeon and staff. Present on Admission?: Yes (3) CKD (chronic kidney disease): Acute kidney injury on chronic kidney disease Creatinine 1.95 upon admission, with range 1.28-1.75. Receiving volume of fluids. We will follow serial BMP and magnesium levels. Present on Admission?: Yes (4) CAD (coronary artery disease): CAD/hypertension/paroxysmal SVT/sick sinus syndrome- Patient has been anticoagulated on Xarelto. All oral medications will be held. Postop orders per cardiology Dr. Joseph Present on Admission?: Yes (5) Paroxysmal SVT (supraventricular tachycardia): (6) SSS (sick sinus syndrome): (7) HTN (hypertension): (8) HLD (hyperlipidemia): Holding statin while n.p.o. Present on Admission?: Yes (9) Uncontrolled type 2 diabetes mellitus, with long-term current use of insulin: Insulin drip with glycemic consult Present on Admission?: Yes Admission and Anticipated Discharge Date Admission Date: June 20, 2020 History of Present Illness Chief Complaint: The patient presented to the ED as a Heart Alert/Code Blue after coding in the ambulance while en route. Primary Care Provider: MANUEL Middleton The patient is a 64 yo female with PMH including KELLY, GI bleed, Anemia, diabetic vasculopathy, DM, diabetic nephropathy, colitis, SMA stenosis, CKD, Branch retinal artery occlusion, Diabetic toe ulcer, SSS, COPD,Nicotine dependence, LV diastolic dysfunction, RLS, CAD, obesity, CAD, SVT, PAD, HTN and HLD. She was in her usual state of health today until she called family members and then EMS due to not feeling well. She code en route in the ambulance, was intubated, and brought to the ED as a Heart Alert/Code Blue. She did regain ROSC, was taken to the [facility] emerg[facility] by Dr. Joseph, was found to have an occluded RCA, no inteventions were performed, and patient was taken to the ICU for admission. In the ICU patient was placed on the Hypothermic Protocol, and orders followed post cath. Allergies Allergy/AdvReac Type Severity Reaction Status Date / Time clopidogrel [From Plavix] AdvReac Mild Verified 05/06/20 12:37 Home Medications Home Medications Medication Instructions Recorded Confirmed Type nitroglycerin 0.4 mg sublingual 0.4 mg SL Q5M PRN #1 tab 06/08/19 05/13/20 History tablet Spiriva Respimat 2 puffs INH QAM 07/18/19 05/13/20 History albuterol sulfate 90 mcg/actuation 2 puffs INH Q6H PRN #8 gm 10/08/19 05/13/20 Rx aerosol inhaler Robitussin Cough-Chest Noé DM 10 ml PO Q6H PRN #237 ml 11/22/19 05/13/20 Rx lorazepam 0.5 mg tablet 0.5 mg PO BID PRN #60 tab 11/27/19 05/13/20 Rx magnesium oxide 400 mg (241.3 mg 400 mg PO QAM #90 tab 11/27/19 05/13/20 Rx magnesium) tablet rosuvastatin 40 mg tablet 40 mg PO QAM #90 tab 01/30/20 05/13/20 Rx ticagrelor 90 mg tablet 90 mg PO BID #180 tab 02/11/20 05/13/20 Rx metoprolol tartrate 100 mg tablet 100 mg PO BID #180 tab 02/16/20 05/13/20 Rx pramipexole 1 mg tablet 1 mg PO BID #180 tab 03/01/20 05/13/20 Rx cannabidiol 100 mg PO Q2H 03/07/20 05/13/20 History rivaroxaban [Xarelto] 15 mg PO QDD #30 tab 03/08/20 05/13/20 Rx FreeStyle Rosales 14 Day Sensor #2 ea NS 03/10/20 05/13/20 Rx pen needle, diabetic 31 gauge x #100 ea 03/16/20 05/13/20 Rx 5/16" pregabalin 75 mg capsule 75 mg PO TID #90 cap 04/12/20 05/13/20 Rx CPAP Machine #1 ea 05/13/20 05/13/20 Rx metformin 1,000 mg tablet 1,000 mg PO BID #60 tab 05/18/20 Rx ipratropium 0.5 mg-albuterol 3 mg 3 ml INH Q4H PRN #180 ml 05/20/20 05/20/20 Rx (2.5 mg base)/3 mL nebulization soln duloxetine 60 mg capsule,delayed 60 mg PO QAM #90 cap 05/24/20 Rx release diltiazem HCl 240 mg 240 mg PO QAM #90 cap 06/03/20 Rx capsule,extended release 24 hr insulin degludec 100 unit/mL (3 See Rx Instructions SQ DAILY #60 ml 06/14/20 Rx mL) subcutaneous pen Past Med/Surg History Medical History (Updated 06/21/20 @ 05:06 by Edgar Clarke MD) ANNETTE (acute kidney injury) Altered mental status Bulging discs Degenerative disc disease Depression with anxiety Hx of non-ST elevation myocardial infarction (NSTEMI) 05/2018 Hypokalemia Hyponatremia Hypoxia Medical marijuana use Metabolic encephalopathy Myocardial Infarction 05/2018 - [facility] Obesity Pacemaker 05/2015 - Sick sinus syndrome - Last checked 02/2019 ([facility]) - Medtronic Plavix resistance Non-responder to Plavix per Rosangela genetic testing. Per Dr. Zarate, her vascular surgeon. Restless legs Rheumatoid arthritis Spinal stenosis Surgical History History of cardiac cath 05/2018 - [place] - NO STENTS/ANGIOPLASTY - COLLATERAL CIRCULATION - FOLLOWS W/ DR. ERWIN History of carotid endarterectomy History of cataract surgery BILATERAL History of cholecystectomy History of intravascular stent placement Multiple stents in bilateral legs, left subclavian, left aortic mesenteric bypass, left carotid endarterectomy History of oral surgery History of tonsillectomy History of tooth extraction Family History Mother , Heart Disease Ruptured Appendix No problems noted. Father , with Vascular and Colon Can No problems noted. Sister No problems noted. Grandfather (Maternal) Family history of diabetes mellitus Social History Smoking Status: Former smoker Cigarettes Per Day: 1 pack a day; Second Hand Exposure: No; Do You Dip or Chew Tobacco: No; Tobacco Cessation Education Requested by Patient: No Hx Alcohol Use: Yes Alcohol type: beer, wine and hard liquor Hx Substance Use: Yes Last Used Substance: Unknown Last Used Substance Other:: today 03/07/2020 Substance Use Type Other:: "vaping THC" Preferred Language: [place] Citizen Communication Ability: Effective Visual Impairment: No Limitations Store Receiving Clerk Required: No Beliefs That Will Affect Care: None marital status: Current Living Situation: Family Current Living Situation Comment: Lives with sister Other Information That Helps Us Care for You: No Feels Safe at Home: Yes Safety Concerns: Feels Safe At This Time Assistive Devices: Cane and Oxygen - at Night Review of Systems Review of Systems: Unobtainable due to reduced consciousness Results & Data Results & Data ([facility]) Vital Signs (Past 12 Hours) Vital Signs Temp Pulse Resp BP BP Pulse Ox 06/21/20 01:18 28 H 06/21/20 00:24 103 H 28 H 100 06/21/20 00:14 92.1 F L 96 H 33 H 82/56 L 96 06/20/20 22:31 105 H 91/56 L 97 06/20/20 22:30 125 H 19 100 06/20/20 22:28 138 H 20 136/76 95 06/20/20 22:25 138 H 22 110/76 90 06/20/20 22:22 130 H 20 98/76 L 89 L 06/20/20 22:21 113 H 23 88 L Laboratory Results Laboratory Results WBC 28.77 K/uL (4.8-10.8) H 06/21/20 00:56 RBC 4.51 M/uL (4.2-5.4) 06/21/20 00:56 Hgb 11.3 g/dL (12.0-16.0) L 06/21/20 00:56 POC Hgb 12.9 g/dl (12.0-16.0) 06/21/20 01:18 Hct 38.2 % (37-47) 06/21/20 00:56 POC Hct 38 % (37-47) 06/21/20 01:18 MCV 84.7 fL (80-100) 06/21/20 00:56 MCH 25.1 pg (25-34) 06/21/20 00:56 MCHC 29.6 g/dL (32-36) L 06/21/20 00:56 RDW Std Deviation 57.3 fL (36.4-46.3) H 06/21/20 00:56 RDW Coeff of Tosin 18.4 % (11.5-14.5) H 06/21/20 00:56 Plt Count 214 K/uL (130-400) 06/21/20 00:56 Immature Gran % (Auto) 1.4 % 06/21/20 00:56 Neut % (Auto) 85.3 % 06/21/20 00:56 Lymph % (Auto) 7.1 % 06/21/20 00:56 [place] % (Auto) 5.5 % 06/21/20 00:56 Eos % (Auto) 0.5 % 06/21/20 00:56 Baso % (Auto) 0.2 % 06/21/20 00:56 Neut # (Auto) 24.56 K/uL (1.4-6.5) H 06/21/20 00:56 Lymph # (Auto) 2.03 K/uL (1.2-3.4) 06/21/20 00:56 [place] # (Auto) 1.59 K/uL (0.11-0.59) H 06/21/20 00:56 Eos # (Auto) 0.13 K/uL (0-0.5) 06/21/20 00:56 Baso # (Auto) 0.05 K/uL (0-0.2) 06/21/20 00:56 Immature Gran # (Auto) 0.41 K/uL (0.00-0.02) H 06/21/20 00:56 Absolute Nucleated RBC 0.08 K/uL (0-0) H 06/21/20 00:56 Nucleated RBC % (auto) 0.3 % 06/21/20 00:56 Polychromasia 1+ 06/21/20 00:56 Poikilocytosis Present 06/21/20 00:56 Echinocytes 1+ 06/20/20 22:21 PT 11.7 Seconds (9.0-12.0) 06/21/20 00:56 INR 1.1 (0.9-1.1) 06/21/20 00:56 APTT 28.6 Seconds (21.0-31.0) 06/21/20 00:56 PTT Ratio 1.0 06/21/20 00:56 Sample Site Art Line 06/21/20 01:18 POC pH 7.21 (7.35-7.45) L 06/21/20 01:18 POC pCO2 47 mmHg (35-46) H 06/21/20 01:18 POC pO2 81 mmHg (80-95) 06/21/20 01:18 POC HCO3 19 harriet/L (19-24) 06/21/20 01:18 POC Total CO2 20 mmol/L (24-31) L 06/21/20 01:18 POC Base Excess -9.0 harriet/L (-9-1.8) 06/21/20 01:18 ABG pH (Temp Correct) 7.252 (7.35-7.45) L 06/21/20 01:18 ABG pCO2 (Temp Corrct 41 mmHg (35-46) 06/21/20 01:18 POC ABG pO2 at Pt Temp 64 06/21/20 01:18 POC ABG O2 Sat 93.0 % (90-95) 06/21/20 01:18 Hong Test NA 06/21/20 01:18 O2 Delivery Device Ventilator 06/21/20 01:18 POC O2 Rate 24 06/21/20 01:18 Minute Ventilation 13.1 06/21/20 01:18 POC FiO2 50 % 06/21/20 01:18 Tidal Volume 450 06/21/20 01:18 PEEP 8 06/21/20 01:18 POC Sodium 135 mmol/L (135-144) 06/21/20 01:18 Sodium 138 mmol/L (136-145) 06/21/20 00:56 POC Potassium 4.1 mmol/L (3.3-5.0) 06/21/20 01:18 Potassium 4.3 mmol/L (3.5-5.1) 06/21/20 00:56 POC Chloride 106 mmol/L (101-112) 06/20/20 22:20 Chloride 100 mmol/L (98-107) 06/21/20 00:56 Carbon Dioxide 19 mmol/L (21-32) L 06/21/20 00:56 POC Total CO2 15 mmol/L (24-31) L 06/20/20 22:20 Anion Gap 19.0 (3-11) H 06/21/20 00:56 POC Anion Gap 21.0 mmol/L (16-25) 06/20/20 22:20 POC BUN 29 mg/dl (7-18) H 06/20/20 22:20 BUN 26 mg/dl (7-18) H 06/21/20 00:56 Creatinine 1.95 mg/dl (0.6-1.2) H 06/21/20 00:56 POC Creatinine 1.3 mg/dl (0.6-1.3) 06/20/20 22:20 Est Cr Clr Drug Dosing 37.0 ml/min 06/21/20 00:56 Est GFR ( Amer) 30.5 06/21/20 00:56 Est GFR (Non-Af Amer) 26.3 06/21/20 00:56 BUN/Creatinine Ratio 13.2 (-20) 06/21/20 00:56 Glucose 480 mg/dl (70-99) H* 06/21/20 00:56 POC Glucose 530 mg/dl (70-99) H* 06/20/20 22:18 POC Glucose (other) 462 mg/dl (70-99) H* 06/20/20 22:20 Lactate 9.5 mmol/L (0.4-2.0) H* 06/21/20 00:56 Calcium 8.0 mg/dl (8.5-10.1) L 06/21/20 00:56 POC Ioniz Calcium Manuel 1.11 mmol/l (1.12-1.32) L 06/20/20 22:20 Ionized Calcium 1.03 mmol/L (1.12-1.32) L 06/21/20 00:56 Phosphorus 8.0 mg/dl (2.5-4.9) H 06/21/20 00:56 Magnesium 2.6 mg/dl (1.8-2.4) H 06/21/20 00:56 Total Bilirubin 0.4 mg/dl (0.2-1) 06/20/20 22:21 AST 54 U/L (15-37) H 06/20/20 22:21 ALT 31 U/L (12-78) 06/20/20 22:21 Alkaline Phosphatase 188 U/L (45-117) H 06/20/20 22:21 Total Creatine Kinase 153 U/L (26-192) 06/20/20 22:21 CK-MB (CK-2) 8.1 ng/ml (0.5-3.6) H 06/21/20 00:56 CK/CKMB % Calc 1.6 (0-3.0) 06/20/20 22:21 Troponin I 0.618 ng/ml (0-0.045) H* 06/21/20 00:56 Total Protein 6.5 gm/dl (6.4-8.2) 06/20/20 22:21 Albumin 2.7 gm/dl (3.4-5.0) L 06/20/20 22:21 Globulin 3.8 gm/dl (2.5-4.0) 06/20/20 22:21 Albumin/Globulin Ratio 0.7 (0.9-2) L 06/20/20 22:21 Lipase 72 U/L (73-393) L 06/20/20 22:21 Beta-Hydroxybutyric Acd 5.09 mg/dl (0.2-2.81) H 06/21/20 00:56 Specimen Hemolysis 06/20/20 22:21 Diagnostic Findings [facility] Patient: ROBERT QUINTANILLA (Female) : 53 Status: Date: 06/21/20 00:16 Room #: 102 History: CARDIAC ARREST Slices: 67 Priors: Tech: Zain Davila @ [phone] Exams: CT HEAD Contrast: Accession Numbers: [id number] Preliminary Findings Only See Final Report For Complete Findings CT HEAD: No acute intracranial hemorrhage. No mass-effect or midline shift. Scattered subcortical and periventricular white matter hypoattenuating foci are present, likely representing chronic small vessel ischemic changes. Mild paranasal sinus disease. Comparison made with 12/09/2019 CT head Radiologist: Kamlesh Pereyra MD Study ready at 00:26 and initial results transmitted at 00:31 Results also transmitted to 1st Floor ICU @ [phone] (Fax) *This report constitutes a preliminary interpretation only. Non-acute findings felt to be unrelated to the clinical presentation may not be discussed in this report. The study will be interpreted and a final report will be generated by the local Radiologist the following shift. To reach the hospital radiology department call [phone]. If a discrepancy is found between the preliminary and final interpretations of this study, please notify us via our Client Portal at [email or web address], under QA Ex[employer].You can also fax this report with a description of the discrepancy, or include the final report, to our [facility] fax number [phone].If faxing, please indicate the severity of discrepancy using one of the following categories: [ ] 1 - Agree/Informational [ ] 2 - Unlikely to Affect Management [ ] 3 - Possible Eventual Change of Management [ ] 4 - Probable Immediate Change of Management For all other patient related information, please fax us at [phone]. [id number] [facility] Patient: ROBERT QUINTANILLA (Female) : 53 Status: Date: 06/21/20 00:17 Room #: 102 History: CARDIAC ARREST Slices: 643 Priors: Tech: Zain Davila @ [phone] Exams: CTA CHEST Contrast: IV Amt: 119 ML OPTIRAY 320 Accession Numbers: [id number] Preliminary Findings Only See Final Report For Complete Findings CTA CHEST: No evidence of an acute pulmonary embolus. Right greater than left lung base volume loss. Consolidation in the right lower lobe not excluded. Interstitial pulmonary edema. Radiologist: Kamlesh Pereyra MD Study ready at 00:26 and initial results transmitted at 00:35 Results also transmitted to [facility] Floor ICU @ [phone] (Fax) *This report constitutes a preliminary interpretation only. Non-acute findings felt to be unrelated to the clinical presentation may not be discussed in this report. The study will be interpreted and a final report will be generated by the local Radiologist the following shift. To reach the hospital radiology department call [phone]. If a discrepancy is found between the preliminary and final interpretations of this study, please notify us via our Client Portal at [email or web address], under [employer].You can also fax this report with a description of the discrepancy, or include the final report, to our daytime fax number [phone].If faxing, please indicate the severity of discrepancy using one of the following categories: [ ] 1 - Agree/Informational [ ] 2 - Unlikely to Affect Management [ ] 3 - Possible Eventual Change of Management [ ] 4 - Probable Immediate Change of Management For all other patient related information, please fax us at [phone]. [id number] [facility] Patient: ROBERT QUINTANILLA (Female) : 53 Status: IP Date: 06/21/20 00:18 Room #: 102 History: CARDIAC ARREST Slices: 687 Priors: Tech: Zain Davila @ [phone] Exams: CT ABDOMEN & PELVIS With Contrast Contrast: IV Amt: 119 ML OPTIRAY 320 Accession Numbers: [id number] Preliminary Findings Only See Final Report For Complete Findings CT ABDOMEN & PELVIS With Contrast: Portion of the left abdomen excluded from puytu-au-etuj. Nonspecific heterogeneous enhancement of the kidneys. Correlate with renal function and urinary lab work. No free fluid or free air. Bibasilar volume loss. Peripheral and aortic vascular disease. Multilevel lumbar spondylosis. Radiologist: Kamlesh Pereyra MD Study ready at 00:32 and initial results transmitted at 00:40 Results also transmitted to 1st Floor ICU @ [phone] (Fax) *This report constitutes a preliminary interpretation only. Non-acute findings felt to be unrelated to the clinical presentation may not be discussed in this report. The study will be interpreted and a final report will be generated by the local Radiologist the following shift. To reach the hospital radiology department call [phone]. If a discrepancy is found between the preliminary and final interpretations of this study, please notify us via our Client Portal at [email or web address], under QA Exams.You can also fax this report with a description of the discrepancy, or include the final report, to our daytime fax number [phone].If faxing, please indicate the severity of discrepancy using one of the following categories: [ ] 1 - Agree/Informational [ ] 2 - Unlikely to Affect Management [ ] 3 - Possible Eventual Change of Management [ ] 4 - Probable Immediate Change of Management For all other patient related information, please fax us at [phone]. [id number] Code Status & VTE Plan Code Status previously DNR/DNI, but was intubated by EMS en route without knowledge of code stats. Patient is presently intubated VTE Prophylaxis Plan VTE Prophylaxis will be ordered: Yes Critical Care Time Critical Care Time: Yes Total Critical Care Time: 40 PG Care Time/CCT Total # of Minutes Spent Total Time Spent with Patient: Total time spent is greater than 50% in coordination of care (as documented) at patient's floor/unit and/or counseling patient: Critical Care Time: Yes Total Critical Care Time: 40 Coding Level of Care Code 82440 Initial Inpt Care Lvl 3 Diagnoses Cardiac arrest I46.9 Admitted to intensive care unit Z78.9 CKD (chronic kidney disease) N18.9 CAD (coronary artery disease) I25.10 Coronary Disease-Associated Artery/Lesion type: [place] artery [place] vs. transplanted heart: [place] heart Associated angina: without angina Paroxysmal SVT (supraventricular tachycardia) I47.1 SSS (sick sinus syndrome) I49.5 HTN (hypertension) I10 Hypertension type: essential hypertension HLD (hyperlipidemia) E78.2 Hyperlipidemia type: mixed hyperlipidemia Uncontrolled type 2 diabetes mellitus, with long-term current use of insulin E11.65; Z79.4 Additional Codes Critical Care Time - Critical Care Time: Yes ([id number]) Time Spent (min) 40 (1) CAD (coronary artery disease) Coronary Disease-Associated Artery/Lesion type: [place] artery [place] vs. transplanted heart: [place] heart Associated angina: without angina Qualified Code(s): I25.10 - Atherosclerotic heart disease of [place] coronary artery without angina pectoris (2) HTN (hypertension) Hypertension type: essential hypertension Qualified Code(s): I10 - Essential (primary) hypertension (3) HLD (hyperlipidemia) Hyperlipidemia type: mixed hyperlipidemia Qualified Code(s): E78.2 - Mixed hyperlipidemia
[2020-06-21] MEDS ORDERED: AMIODARONE / D5W 360 MG/200 ML BAG IV ONE (03:58)
[2020-06-21] MEDS ORDERED: 0.2 MICRON FILTER SET 1 EA IV ONE (03:58)
[2020-06-21] MEDS ORDERED: AMIODARONE / D5W 360 MG/200 ML BAG IV SCH (04:00)
[2020-06-21 04:13] LABS: iSTAT Art Bld Gas pCO2 Correct 40 mmHg (35-46); iSTAT Art Bld Gas pH Corrected 7.301 (7.35-7.45); iSTAT Arterial Blood Gas HCO3 21 meg/L (19-24); iSTAT Arterial Blood Gas pCO2 47 mmHg (35-46); iSTAT Arterial Blood Gas pH 7.25 (7.35-7.45); iSTAT Arterial Blood Gas pO2 102 mmHg (80-95); iSTAT Arterial Blood Gas pO2 C 81; iSTAT Carbon Dioxide 22 mmol/L (24-31); iSTAT FiO2 60 %; iSTAT Hematocrit 40 % (37-47); iSTAT Hemoglobin 13.6 g/dl (12.0-16.0); iSTAT Potassium 3.1 mmol/L (3.3-5.0); iSTAT Site Art Line; iSTAT Sodium 136 mmol/L (135-144)
[2020-06-21] MEDS: AMIODARONE / D5W 360 MG/200 ML BAG IV SCH ×2 (06:07→14:21)
[2020-06-21 06:23] LABS: Hematocrit (blood only) 39.5 % (37-47); Hemoglobin 11.8 g/dL (12.0-16.0); Mean Corpuscular Hemoglobin 25.3 pg (25-34); Mean Corpuscular Hgb Conc 29.9 g/dL (32-36); Mean Corpuscular Volume 84.8 fL (80-100); Platelet Count 181 K/uL (130-400); RDW Coefficient of Variation 18.3 % (11.5-14.5); RDW Standard Deviation 56.5 fL (36.4-46.3); Red Blood Count 4.66 M/uL (4.2-5.4); White Blood Count 25.29 K/uL (4.8-10.8)
[2020-06-21 06:31] LABS: INR 1.1 (0.9-1.1); Partial Thromboplastin Time 29.1 Seconds (21.0-31.0); Prothrombin Time 11.7 Seconds (9.0-12.0)
[2020-06-21 06:49] LABS: BUN Creatinine Ratio 13.4 (10-20); Calcium 8.4 mg/dl (8.5-10.1); Creatinine Clr Calc Pharmacy 36.2 ml/min; Est GFR (African American) 29.3; Est GFR (Non-African American) 25.2; Magnesium 3.4 mg/dl (1.8-2.4); Phosphorus 4.9 mg/dl (2.5-4.9); Potassium 3.1 mmol/L (3.5-5.1)
[2020-06-21 06:58] LABS: Basophils # (auto) 0.02 K/uL (0-0.2); Basophils % (auto) 0.1 %; Echinocytes 1+; Eosinophils # (auto) 0.02 K/uL (0-0.5); Eosinophils % (auto) 0.1 %; Immature Granulocytes # (auto) 0.15 K/uL (0.00-0.02); Immature Granulocytes % (auto) 0.6 %; Lymphocytes # (auto) 0.96 K/uL (1.2-3.4); Lymphocytes % (auto) 3.8 %; Monocytes # (auto) 1.51 K/uL (0.11-0.59); Neutrophils # (auto) 22.63 K/uL (1.4-6.5); Neutrophils % (auto) 89.4 %; Ovalocytes 1+; Polychromasia 1+
[2020-06-21 07:02] LABS: Beta-Hydroxybutyrate 1.94 mg/dl (0.2-2.81)
--- NOTE | 2020-06-21 07:16 | XRay Report ---
KUB HISTORY: OG tube placement COMPARISON: Abdomen and pelvis CT 06/20/2020. FINDINGS: The bowel gas pattern is unremarkable. There are no dilated loops of small bowel to suggest an obstruction. No renal calculi. No ureteral calculi. No pneumoperitoneum or pneumatosis. Surgical clips seen within the abdomen. Nasogastric tube terminates in the stomach. Pacemaker wires are noted . There is a right femoral catheter terminating in expected location of the suprahepatic IVC. IMPRESSION: Nasogastric tube terminates in the stomach. ACT 112: Negative or not required by law. Electronically signed by: Dash Nolasco M.D. 06/21/2020 7:14 AM
--- NOTE | 2020-06-21 07:23 | CT Scan Report ---
CT OF THE HEAD WITHOUT CONTRAST CLINICAL HISTORY: Cardiac arrest. COMPARISON STUDY: Head CT December 09, 2019. TECHNIQUE: Helical axial images of the head were obtained without IV contrast. Automated exposure con trol was utilized for the study. A dose lowering technique was utilized adhering to the principles o f ALARA. FINDINGS: No acute intracranial hemorrhage, midline shift or mass effect is present. White matter hyp odense foci are unchanged since MRI of December 08, 2022 The ventricular system is unremarkable. The bas ilar cisterns are patent. No extra-axial collections are present. There are no findings to suggest ac false pass dural sinus thrombosis or acute territorial infarct. No significant calvarial abnormalities are p resent. Note is made of air-fluid levels within the bilateral maxillary and sphenoid sinuses with muc osal thickening within the ethmoid sinuses. IMPRESSION: No acute intracranial findings. No change in appearance of the brain. ACT 112: Negative or not required by law. Electronically signed by: Can Blevins M.D. 06/21/2020 7:21 AM
--- NOTE | 2020-06-21 07:37 | XRay Report ---
XR chest 1V portable CLINICAL HISTORY: Respiratory failure COMPARISON STUDY: 1120 FINDINGS: There is a nasogastric tube which passes into the stomach. There is an endotracheal tube po sitioned 8 cm above the duong. There is persistent but improving pulmonary edema. There is a left maya bclavian dual-chamber central venous pacemaker.[ IMPRESSION: 1. Persistent but improving pulmonary edema pattern 2. Endotracheal tube 8 cm above the duong. ACT 112: Negative or not required by law. Electronically signed by: Karthikeyan Cantor M.D. 06/21/2020 7:36 AM
--- NOTE | 2020-06-21 07:45 | CT Scan Report ---
CT OF THE ABDOMEN AND PELVIS WITH CONTRAST CLINICAL HISTORY: Cardiac arrest. COMPARISON STUDY: CT of the abdomen and pelvis November 24, 2019. TECHNIQUE: Following IV administration of 119 mL of Optiray-320, axial images of the abdomen and pelv is were obtained from the lung bases to the proximal femurs. Images were reviewed in the axial, sagit zaynab, and coronal planes. IV contrast was administered without complication. Automated exposure contr ol was utilized for the study. A dose lowering technique was utilized adhering to the principles of ALARA. CT DOSE: 3592.76 mGy.cm FINDINGS: Please note that the chest CT will be reported separately. Note is made of interlobular sep zaynab thickening and groundglass opacities within lungs consistent with pulmonary edema. In addition, t here is moderate bilateral lower lobe airspace opacity. There are trace bilateral pleural effusions. Multiple acute anterior nondisplaced bilateral rib fractures are partially imaged on this examination . A right femoral central venous catheter is in place. The tip is within the IVC. The liver, spleen, adrenal glands and pancreas are unremarkable. There is no biliary ductal dilatation status post maria [place] rosario cystectomy. A large left lateral abdominal wall hernia is again noted which contains multiple bowel l oops. Portion of the abdomen is not included on this exam. However, there is no convincing evidence f or a bowel obstruction. Right colon is fluid-filled with poorly formed stool. A Brown balloon within the bladder is noted. There is no pelvic lymphadenopathy. A left periaortic density adjacent to the a bdominal aorta is unchanged from earlier exams. There is extensive aortoiliac calcified plaque. Bilat eral common iliac artery stents are suboptimally assessed on this non-CTA exam. There is no hydroneph rosis. Moderate left renal atrophy is noted. There is mild right renal atrophy. Heterogeneous enhance ment of both kidneys is noted. IMPRESSION: 1. Heterogeneous enhancement of both kidneys with striated nephrograms. The appearance is nonspecific and could be correlated with renal function. 2. Redemonstration of the large left lateral abdominal wall hernia which contains multiple bowel loop s without resultant obstruction. Portion of the abdomen excluded on this exam. 3. Evidence for pulmonary edema. In addition, bilateral lower lobe airspace opacities which may refle ct pneumonia or sequela of aspiration. Trace bilateral pleural effusions. 4. Numerous acute nondisplaced anterior bilateral rib fractures. ACT 112: Negative or not required by law. Electronically signed by: Can Blevins M.D. 06/21/2020 7:43 AM
[2020-06-21] MEDS: INSULIN ASPART 100 UNITS/ML 3 ML PEN SC SCH ×4 (07:50→20:43)
--- NOTE | 2020-06-21 07:55 | XRay Report ---
XR chest 1V portable HISTORY: Atypical Chest Pain COMPARISON: Chest 12/09/2019. FINDINGS: Rotated study. Endotracheal tube terminates 1.8 cm from the duong. No pneumothorax. Right greater than left interstitial thickening with perihilar airspace opacities. This favors asymmetric p ulmonary edema. No pleural effusions. Left-sided dual-chamber pacemaker. The heart is normal in size. IMPRESSION: 1. Rotated study. Endotracheal tube terminates approximately 1.8 cm from the duong. 2. Right greater than left interstitial thickening with perihilar airspace opacities. This is concern ing for moderate to severe pulmonary edema. ACT 112: Negative or not required by law. Electronically signed by: Dash Nolasco M.D. 06/21/2020 7:54 AM
--- NOTE | 2020-06-21 08:15 | CT Scan Report ---
CHEST CTA for PULMONARY ARTERIES CT DOSE: HISTORY: Shortness of breath. Intubation. TECHNIQUE: Multiaxial CT images of the chest were performed following the intravenous administration of contrast to evaluate the pulmonary arteries. Maximal intensity projection images were also obtaine d. A dose lowering technique was utilized adhering to the principles of ALARA. COMPARISON STUDY: Chest CT 05/14/2018. FINDINGS: Endotracheal tube terminates 3.5 cm from the duong. The heart is mildly enlarged. No pleur al or pericardial effusions. Proximal left subclavian artery stent is patent. No evidence for an aort ic dissection. There is moderate calcified plaque within the aortic arch. No filling defects within t he pulmonary arteries to suggest pulmonary embolus. Limited views of the upper abdomen demonstrate a normal liver and spleen. The visualized adrenal glands unremarkable. There is a tip of a femoral cath eter seen at the suprahepatic IVC. Normal esophagus. No mediastinal hilar lymphadenopathy. Left-sided pacemaker is noted. No pneumothorax. Trace mucoid material within the trachea. Diffuse interlobular septal thickening consistent with pulmonary edema with scattered groundglass densities. There is also consolidative airspace opacities seen within the lower lobes and upper lobes posteriorly. IMPRESSION: 1. No evidence for pulmonary embolus. 2. Moderate to severe pulmonary edema. 3. Endotracheal tube terminates 3.5 cm from the duong. 4. The tip of a right femoral catheter terminates at the suprahepatic IVC. 5. Patchy areas of consolidation within the bilateral lower lobes and upper lobes posteriorly. This c ould be due to pulmonary edema or a superimposed pneumonia. ACT 112: Negative or not required by law. Electronically signed by: Dash Nolasco M.D. 06/21/2020 8:14 AM
[2020-06-21] MEDS: POTASSIUM CHLORIDE / WTR 20 MEQ/100 ML PLCT IV SCH ×5 (09:15→19:45)
--- NOTE | 2020-06-21 10:20 | XRay Report ---
XR chest 1V portable CLINICAL HISTORY: Repositioning of ET Tube COMPARISON STUDY: 06/21/2020 FINDINGS: Endotracheal tube is positioned 4.5 cm above the duong. There is a nasogastric tube which passes into the stomach. There is a left subclavian dual-chamber central venous pacemaker. There is r adiographic evidence of congestive failure/fluid overload.[ IMPRESSION: 1. Persistent congestive failure/fluid overload 2. Interval repositioning of the endotracheal tube which is currently positioned 4.5 cm above the car phyllis ACT 112: Negative or not required by law. Electronically signed by: Karthikeyan Cantor M.D. 06/21/2020 10:19 AM
[2020-06-21] MEDS ORDERED: PANTOprazole 40 MG in SYRINGE 0 ML IV SCH (11:00)
--- NOTE | 2020-06-21 11:03 | Pharmacy Report ---
Pharmacy Glycemic Short Note 2 - Date of Service June 21, 2020 - Glycemic Short BSG Results (Last 24 hours): 06/20/20 06/20/20 06/20/20 22:18 22:20 22:21 Glucose 460 H* POC Glucose 530 H* POC Glucose (other) 462 H* 06/21/20 06/21/20 06/21/20 00:56 02:49 04:07 Glucose 480 H* POC Glucose POC Glucose (other) 550 H* 495 H* 06/21/20 06/21/20 06/21/20 04:56 05:57 05:59 Glucose 416 H* POC Glucose 422 H* POC Glucose (other) 442 H* 06/21/20 08:05 Glucose POC Glucose POC Glucose (other) 250 H OUTPATIENT ANTIDIABETIC REGIMEN: * Metformin 1gm PO BID * Insulin degludec 34-40 units daily * A1c = 10.1% 02/27/20 ASSESSMENT: * Type 2 diabetic admitted to ICU s/p out-patient cardiac arrest * Currently intubated, sedated and undergoing targeted temperature management * IV insulin infusion initiated this AM, goal range 110-180. BSGs trending in the appropriate direction (400's --> mid 100's). SQ insulin not optimal in this setting due to poor SQ absorption during cooling and if requiring vasopressors. IV insulin has shorter duration of action and more easily titrated as insulin sensitivity changes during cooling/rewarming. PLAN FOR INPATIENT GLYCEMIC CONTROL: * Hold outpatient oral diabetes medications (metformin) * Continue IV insulin infusion, goal range 110-180mg/dL, adjust per rate adju stment calculator * Check BSGs using iSTAT rather than AccuChek PLAN FOR DISCHARGE: * to be determined
[2020-06-21 12:03] LABS: Hematocrit (blood only) 36.6 % (37-47); Hemoglobin 11.2 g/dL (12.0-16.0); Mean Corpuscular Hemoglobin 25.3 pg (25-34); Mean Corpuscular Hgb Conc 30.6 g/dL (32-36); Mean Corpuscular Volume 82.6 fL (80-100); Mean Platelet Volume 12.2 fL (7.4-10.4); Nucleated RBC # (auto) 0.07 K/uL (0-0); Nucleated RBC % (auto) 0.3 %; Platelet Count 185 K/uL (130-400); RDW Coefficient of Variation 18.1 % (11.5-14.5); RDW Standard Deviation 54.6 fL (36.4-46.3); Red Blood Count 4.43 M/uL (4.2-5.4); White Blood Count 23.79 K/uL (4.8-10.8)
[2020-06-21 12:20] LABS: INR 1.1 (0.9-1.1); Partial Thromboplastin Ratio 0.9; Partial Thromboplastin Time 25.8 Seconds (21.0-31.0); Prothrombin Time 11.6 Seconds (9.0-12.0)
--- NOTE | 2020-06-21 12:21 | XCELERA ---
[id number]
[2020-06-21 12:24] LABS: Appearance Urine Cloudy (Clear); Bacteria Urine Automated 2+ (Negative); Bilirubin Urine Negative (Negative); Blood Urine 3+ (Negative); Color Urine Yellow; Glucose Urine UA Trace (Negative); Ketones Urine Negative (Negative); Leukocyte Esterase Urine 1+ (Negative); Nitrite Urine Negative (Negative); Protein Urine 2+ (Negative); Specific Gravity Urine > 1.045 (1.000-1.030); Urobilinogen Urine Negative (Negative); WBC Urine Automated >30 /hpf (0-5)
[2020-06-21 12:35] LABS: BUN Creatinine Ratio 15.4 (10-20); Creatinine Clr Calc Pharmacy 38.9 ml/min; Est GFR (African American) 31.9; Est GFR (Non-African American) 27.5; Potassium 3.6 mmol/L (3.5-5.1)
[2020-06-21 12:36] LABS: Calcium 8.2 mg/dl (8.5-10.1); Magnesium 2.9 mg/dl (1.8-2.4); Phosphorus 3.9 mg/dl (2.5-4.9)
[2020-06-21 12:38] LABS: Basophils # (auto) 0.01 K/uL (0-0.2); Eosinophils # (auto) 0.01 K/uL (0-0.5); Immature Granulocytes # (auto) 0.13 K/uL (0.00-0.02); Immature Granulocytes % (auto) 0.5 %; Lymphocytes # (auto) 0.91 K/uL (1.2-3.4); Lymphocytes % (auto) 3.8 %; Monocytes # (auto) 1.73 K/uL (0.11-0.59); Monocytes % (auto) 7.3 %; Neutrophils % (auto) 88.4 %
--- NOTE | 2020-06-21 13:19 | Procedure Note ---
Procedure Note Date of Service June 21, 2020 ARTERIAL LINE PROCEDURE NOTE: Procedure: Arterial Line Placement Attending: Dr. Alberto Borges MD Indication: Monitoring on Pressors Anesthesia: [ Local Lidocaine 1% Emergency consent was applied. The procedure was discussed with sister who is the POA. Indication, risks, and benefits were explained at length. A time-out was completed verifying correct patient, procedure, site, positioning, and implant(s) or special equipment if applicable. Patients left groin was prepped and draped in the usual sterile fashion. Ultrasound guidance was used to aid needle placement. A 20g Arrow arterial line was introduced into the left femoral artery. Catheter was threaded, and the needle was removed with appropriate pulsatile blood return. Good waveform was observed on the monitor. The patient tolerated the procedure well. Confirmation of placement with ultrasound. Blood Loss: Minimal Complications: None Coding CPT Codes Tubes, Drains, and Vasc Access - Tubes, Drains, and Vasc Access: [id number] Insertion Catheter, Artery ([id number]) Tubes, Drains, and Vasc Access - Tubes, Drains, and Vasc Access: [id number] Ultrasound Guidance For Vascular ([id number]) [facility] [place] Procedure Codes (Charges) Tubes, Drains, and Vasc Access Procedure 1: Tubes, Drains, and Vasc Access: [id number] Insertion Catheter, Artery Procedure 2: Tubes, Drains, and Vasc Access: [id number] Ultrasound Guidance For Vascular
[2020-06-21] MEDS: DEXTROSE 50% 50 ML SYRINGE IV PRN ×3 (14:45→23:42)
--- NOTE | 2020-06-21 15:02 | Cardiology Consultation ---
Date of Consultation June 21, 2020 Assessment & Plan (1) Cardiac arrest: 2. Chronic single-vessel coronary artery diseaseRCA QUARTER DOPER 3. Pulmonary edema 4. Acute on chronic renal insufficiency 5. Atrial fibrillation with RVR, paroxysmal SVT, sick sinus syndrome post pacemaker 6. Chronic diastolic heart failure 7. Suspected anoxic brain injury 8. Poorly controlled diabetes 9. Diffuse peripheral arterial disease Target temperature management post PEA cardiac arrest underway. Post cardiac catheterization showing no acute CAD. Suspect etiology of event pulmonary in nature versus acute diastolic heart failure potentially triggered by SVT. For now has remained hemodynamically stable. Primarily in sinus rhythm on telemetry Recommendations: Device interrogation pending Continue amiodarone infusion, monitor QTC, supplement potassium > 4, magnesium >2. Start beta-danae if recurrent A. fib, more frequent paroxysmal SVT When able start heparin infusion for anticoagulation with atrial fibrillation Resume antiplatelet therapy when able with aspirin, ticagrelor for severe PAD with bilateral carotid artery stenting (Plavix nonresponder). We will continue to follow. History of Present Illness Attending Physician: Andrew Gonzalez DO History of Present Illness Mrs. Sanz is a 64-year-old woman is a 64-year-old woman with a history of co ronary artery disease with known RCA QUARTER DOPER with collaterals, chronic diastolic heart failure, severe PAD post aorto-bifemoral bypass, cerebrovascular disease post bilateral carotid stenting, type 2 diabetes, COPD, ongoing tobacco abuse, pretension, dyslipidemia, paroxysmal SVT/A. fib, sick sinus syndrome post dual- chamber pacemaker admitted yesterday after cardiac arrest. Patient had been in her usual state of health yesterday and reportedly began feeling unwell after she went out to a store. She called her sister endorsed shortness of breath, questionable chest discomfort before contacting EMS. In route on ambulance patient had what sounds to be a PEA arrest. Intubated, no shockable rhythms and received CPR for approximately 10 to 15 minutes before ROSC. ECG and ambulance showed borderline inferolateral ST elevations. On arrival post ROSC ECG with atrial fibrillation, right bundle branch block and right axis deviation. Taken urgently for cardiac catheterization which revealed chronically occluded RCA with no new significant left system disease. LVEDP of 18. Cooling catheter placed to right common femoral vein for targeted temperature management. Patient hemodynamically stable off pressors overnight. Initially in A. fib but converted to sinus rhythm intermittent brief SVT today. Echocardiogram showed preserved LV function, normal RV function. CTA negative for PE but showed significant pulmonary edema. Troponin mildly elevated at 0.618. Allergies Allergy/AdvReac Type Severity Reaction Status Date / Time clopidogrel [From Plavix] AdvReac Mild Verified 05/06/20 12:37 Home Medications Home Medications Medication Instructions Recorded Confirmed Type nitroglycerin 0.4 mg sublingual 0.4 mg SL Q5M PRN #1 tab 06/08/19 05/13/20 History tablet Spiriva Respimat 2 puffs INH QAM 07/18/19 05/13/20 History albuterol sulfate 90 mcg/actuation 2 puffs INH Q6H PRN #8 gm 10/08/19 05/13/20 Rx aerosol inhaler Robitussin Cough-Chest Noé DM 10 ml PO Q6H PRN #237 ml 11/22/19 05/13/20 Rx lorazepam 0.5 mg tablet 0.5 mg PO BID PRN #60 tab 11/27/19 05/13/20 Rx magnesium oxide 400 mg (241.3 mg 400 mg PO QAM #90 tab 11/27/19 05/13/20 Rx magnesium) tablet rosuvastatin 40 mg tablet 40 mg PO QAM #90 tab 01/30/20 05/13/20 Rx ticagrelor 90 mg tablet 90 mg PO BID #180 tab 02/11/20 05/13/20 Rx metoprolol tartrate 100 mg tablet 100 mg PO BID #180 tab 02/16/20 05/13/20 Rx pramipexole 1 mg tablet 1 mg PO BID #180 tab 03/01/20 05/13/20 Rx cannabidiol 100 mg PO Q2H 03/07/20 05/13/20 History rivaroxaban [Xarelto] 15 mg PO QDD #30 tab 03/08/20 05/13/20 Rx FreeStyle Rosales 14 Day Sensor #2 ea NS 03/10/20 05/13/20 Rx pen needle, diabetic 31 gauge x #100 ea 03/16/20 05/13/20 Rx 5/16" pregabalin 75 mg capsule 75 mg PO TID #90 cap 04/12/20 05/13/20 Rx CPAP Machine #1 ea 05/13/20 05/13/20 Rx metformin 1,000 mg tablet 1,000 mg PO BID #60 tab 05/18/20 Rx ipratropium 0.5 mg-albuterol 3 mg 3 ml INH Q4H PRN #180 ml 05/20/20 05/20/20 Rx (2.5 mg base)/3 mL nebulization soln duloxetine 60 mg capsule,delayed 60 mg PO QAM #90 cap 05/24/20 Rx release diltiazem HCl 240 mg 240 mg PO QAM #90 cap 06/03/20 Rx capsule,extended release 24 hr insulin degludec 100 unit/mL (3 See Rx Instructions SQ DAILY #60 ml 06/14/20 Rx mL) subcutaneous pen Patient History Medical History (Updated 06/21/20 @ 05:06 by Edgar Clarke MD) ANNETTE (acute kidney injury) Altered mental status Bulging discs Degenerative disc disease Depression with anxiety Hx of non-ST elevation myocardial infarction (NSTEMI) 05/2018 Hypokalemia Hyponatremia Hypoxia Medical marijuana use Metabolic encephalopathy Myocardial Infarction 05/2018 - [facility] Obesity Pacemaker 05/2015 - Sick sinus syndrome - Last checked 02/2019 ([facility]) - [employer] Plavix resistance Non-responder to Plavix per [facility] genetic testing. Per Dr. Zarate, her vascular surgeon. Restless legs Rheumatoid arthritis Spinal stenosis Surgical History History of cardiac cath 05/2018 - [place] - NO STENTS/ANGIOPLASTY - COLLATERAL CIRCULATION - FOLLOWS W/ DR. ERWIN History of carotid endarterectomy History of cataract surgery BILATERAL History of cholecystectomy History of intravascular stent placement Multiple stents in bilateral legs, left subclavian, left aortic mesenteric by pass, left carotid endarterectomy History of oral surgery History of tonsillectomy History of tooth extraction Family History Mother , Heart Disease Ruptured Appendix No problems noted. Father , with Vascular and Colon Can No problems noted. Sister No problems noted. Grandfather (Maternal) Family history of diabetes mellitus Social History Smoking Status: Former smoker Cigarettes Per Day: 1 pack a day; Second Hand Exposure: No; Do You Dip or Chew Tobacco: No; Tobacco Cessation Education Requested by Patient: No Hx Alcohol Use: Yes Alcohol type: beer, wine and hard liquor Hx Substance Use: Yes Last Used Substance: Unknown Last Used Substance Other:: today 03/07/2020 Substance Use Type Other:: "vaping THC" Preferred Language: Romansh Communication Ability: Effective Visual Impairment: No Limitations Static Balancer Required: No Beliefs That Will Affect Care: None marital status: Current Living Situation: Family Current Living Situation Comment: Lives with sister How many Children do You have: 0 Other Information That Helps Us Care for You: No Feels Safe at Home: Yes Safety Concerns: Feels Safe At This Time Assistive Devices: Oxygen - Continuous Review of Systems Review of Systems: Unobtainable due to cognitive status Physical Exam Physical Exam: General: Intubated, sedated HEENT: ET tube in place Lungs: Coarse breath sounds anteriorly Cardiac: Regular rate and rhythm, no murmurs. Abdomen: Soft Extremities: Warm, well perfused, no edema. Right radial artery access site with no ecchymosis, hematoma. Distal pulse and sensation intact. Psych: Sedated Results & Data ([facility]) Vital Signs (Past 12 Hours) Vital Signs Temp Temp Pulse Resp BP BP BP 06/21/20 14:15 91.8 F L 95 H 12 99/43 L 127/55 L 06/21/20 13:25 133 H 17 06/21/20 13:15 91.8 F L 136 H 34 H 110/88 06/21/20 12:15 92.3 F L 94 H 35 H 155/64 H 06/21/20 11:15 91.9 F L 94 H 33 H 91/68 L 06/21/20 10:15 91.8 F L 95 H 34 H 145/78 H 06/21/20 09:15 91.8 F L 92 H 34 H 105/81 06/21/20 08:15 91.8 F L 87 35 H 101/75 06/21/20 07:50 86 33 H 06/21/20 07:15 91.8 F L 83 28 H 148/132 H 06/21/20 06:30 91.6 F L 80 30 H 121/71 06/21/20 05:15 91.8 F L 87 30 H 123/57 L 06/21/20 04:55 87 29 H 06/21/20 04:15 91.8 F L 86 106/90 138/67 06/21/20 03:30 91.6 F L 87 06/21/20 03:27 91.6 F L 87 156/104 H 06/21/20 03:18 91.6 F L 88 06/21/20 03:15 91.6 F L 91.6 F L 88 153/67 H 157/69 H 06/21/20 03:08 91.6 F L 106 H Pulse Ox 06/21/20 14:15 99 06/21/20 13:25 96 06/21/20 13:15 96 06/21/20 12:15 06/21/20 11:15 100 06/21/20 10:15 100 06/21/20 09:15 100 06/21/20 08:15 100 06/21/20 07:50 100 06/21/20 07:15 100 06/21/20 06:30 100 06/21/20 05:15 100 06/21/20 04:55 100 06/21/20 04:15 100 06/21/20 03:30 100 06/21/20 03:27 100 06/21/20 03:18 99 06/21/20 03:15 100 06/21/20 03:08 99 PG Care Time/CCT Total # of Minutes Spent Total Time Spent with Patient: Total time spent is greater than 50% in coordination of care (as documented) at patient's floor/unit and/or counseling patient: Coding Level of Care Code 60672 Inpt Consult Level 5 Diagnoses Cardiac arrest I46.9
--- NOTE | 2020-06-21 16:01 | Electrocardiogram Report ---
Test Reason : Blood Pressure : / mmHG Vent. Rate : 151 BPM Atrial Rate : 138 BPM P-R Int : 000 ms QRS Dur : 122 ms QT Int : 306 ms P-R-T Axes : 000 111 -33 degrees QTc Int : 485 ms Atrial fibrillation with rapid ventricular response Right bundle branch block Lateral infarct , age undetermined T wave abnormality, consider inferior ischemia Abnormal ECG When compared with ECG of 07-MAR-2020 10:47, Significant changes have occurred Confirmed by Mikal Aguilar ([id number]) on 06/21/2020 4:01:34 PM Referred By: REFERRED SELF Confirmed By:Mikal Aguilar
--- NOTE | 2020-06-21 16:02 | Electrocardiogram Report ---
Test Reason : Blood Pressure : / mmHG Vent. Rate : 102 BPM Atrial Rate : 097 BPM P-R Int : 000 ms QRS Dur : 068 ms QT Int : 366 ms P-R-T Axes : 000 049 046 degrees QTc Int : 477 ms Atrial fibrillation with rapid ventricular response Poor R wave progression, consider anterior ID vs. lead placement vs. LVH Abnormal ECG When compared with ECG of 20-JUN-2020 22:23, (unconfirmed) Right bundle branch block is no longer Present Criteria for Lateral infarct are no longer Present Confirmed by Mikal Aguilar ([id number]) on 06/21/2020 4:02:26 PM Referred By: REFERRED SELF Confirmed By:Mikal Aguilar
--- NOTE | 2020-06-21 16:08 | Electrocardiogram Report ---
Test Reason : Blood Pressure : / mmHG Vent. Rate : 085 BPM Atrial Rate : 085 BPM P-R Int : 188 ms QRS Dur : 074 ms QT Int : 468 ms P-R-T Axes : 091 039 043 degrees QTc Int : 556 ms Poor data quality, interpretation may be adversely affected Normal sinus rhythm Nonspecific ST abnormality Prolonged QT Abnormal ECG When compared with ECG of 21-JUN-2020 00:58, (unconfirmed) Sinus rhythm has replaced Atrial fibrillation QT has lengthened Confirmed by Mikal Aguilar ([id number]) on 06/21/2020 4:07:23 PM Referred By: REFERRED SELF Confirmed By:Mikal Aguilar
--- NOTE | 2020-06-21 16:11 | Electrocardiogram Report ---
Test Reason : Blood Pressure : / mmHG Vent. Rate : 093 BPM Atrial Rate : 093 BPM P-R Int : 170 ms QRS Dur : 062 ms QT Int : 426 ms P-R-T Axes : 055 039 059 degrees QTc Int : 529 ms Poor data quality, interpretation may be adversely affected Normal sinus rhythm Prolonged QT Abnormal ECG When compared with ECG of 21-JUN-2020 07:58, (unconfirmed) No significant change was found Confirmed by Mikal Aguilar ([id number]) on 06/21/2020 4:11:10 PM Referred By: REFERRED SELF Confirmed By:Mikal Aguilar
[2020-06-21 16:52] LABS: iSTAT Art Bld Gas pH Corrected 7.189 (7.35-7.45); iSTAT Arterial Blood Gas pH 7.14 (7.35-7.45)
--- NOTE | 2020-06-21 16:52 | Hospitalist Progress Note ---
Date of Service June 21, 2020 Assessment & Plan (1) Cardiac arrest: Status post cardiac arrest in the field, where she was intubated, and remains intubated to be admitted to the intensive care unit. Cardiac catheterization revealed chronic RCA occlusion, without interventions to be done. continue hypothermic protocol having tonic clonic seizures at times, concerns for anoxic brain injury rewarm protocol after 24 hours, see how she responds (2) Admitted to intensive care unit: Dr. Borges managing patient, appreciate his assistance (3) Tonic clonic seizures: poor sign, suggests possible anoxic brain injury continue sedation with Propofol, use Ativan PRN monitor (4) DKA (diabetic ketoacidosis): insulin infusion likely due to critical illness and stress (5) Metabolic acidosis: due to DKA and lactic acidosis LA is improving (6) ANNETTE (acute kidney injury): due to cardiac arrest Cr improving with hemodynamic support follow UA closely, check BMP in morning electrolytes stable (7) CKD (chronic kidney disease): baseline range 1.28-1.75. Cr improving from ANNETTE (8) CAD (coronary artery disease): CAD/hypertension/paroxysmal SVT/sick sinus syndrome- Patient has been anticoagulated on Xarelto. All oral medications will be held. Postop orders per cardiology Dr. Joseph (9) Paroxysmal SVT (supraventricular tachycardia): afib with RVR at times use Amiodarone IV short duration (10) SSS (sick sinus syndrome): (11) HTN (hypertension): hypotensive, holding home medications (12) HLD (hyperlipidemia): Holding statin while n.p.o. (13) Uncontrolled type 2 diabetes mellitus, with long-term current use of insulin: Insulin drip with glycemic consult due to DKA Admission and Anticipated Discharge Date Admission Date: June 20, 2020 Subjective no ROS, patient intubated discussed briefly with ICU, they are continuing hypothermic protocol reviewed chart, had left heart cath, no acute thrombus, cardiac arrest likely non-ischemic reviewed labs, WBC 21k, Hb 10, Cr improved to 1.7 and electrolytes stable lactic acid improving discussed with Dr. Borges, appreciate his management of patient Review of Systems Review of Systems: Unobtainable due to endotracheal tube Physical Exam Constitutional: + mechanically ventilated; no acute distress Neck: trachea midline, no thyromegaly Respiratory: + respiratory distress (bucking vent, on pressure support mode) Auscultation: lungs clear to auscultation bilaterally Cardiovascular: Rate/Rhythm: + tachycardic and + irregularly irregular Heart Sounds: normal S1 and normal S2; no murmur Extremities: normal capillary refill; no edema Gastrointestinal (Abdomen): normal bowel sounds, soft, nontender, no hepatosplenomegaly Musculoskeletal: no cyanosis or clubbing, extremities motor strength 5/5 Skin: no rashes, warm and dry Neurologic: + obtunded Lymphatic: no cervical or axillary lymphadenopathy Results & Data Results & Data ([facility]) Vital Signs (Past 12 Hours) Vital Signs Temp Temp Pulse Resp BP BP BP 06/21/20 16:30 33.5 C L 85 06/21/20 16:00 33.8 C L 88 06/21/20 15:38 33.5 C L 87 85/66 L 06/21/20 15:30 33.2 C L 88 06/21/20 15:29 33.1 C L 88 120/69 06/21/20 15:18 32.6 C L 89 06/21/20 15:08 33.0 C L 88 06/21/20 15:00 33.3 C L 89 06/21/20 14:15 33.2 C L 95 H 12 99/43 L 127/55 L 06/21/20 13:25 133 H 17 06/21/20 13:15 33.2 C L 136 H 34 H 110/88 06/21/20 12:15 33.5 C L 94 H 35 H 155/64 H 06/21/20 11:15 33.3 C L 94 H 33 H 91/68 L 06/21/20 10:15 33.2 C L 95 H 34 H 145/78 H 06/21/20 09:15 33.2 C L 92 H 34 H 105/81 06/21/20 08:15 33.2 C L 87 35 H 101/75 06/21/20 07:50 86 33 H 06/21/20 07:15 33.2 C L 83 28 H 148/132 H 06/21/20 06:30 33.1 C L 80 30 H 121/71 06/21/20 05:15 33.2 C L 87 30 H 123/57 L 06/21/20 04:55 87 29 H Pulse Ox 06/21/20 16:30 100 06/21/20 16:00 100 06/21/20 15:38 100 06/21/20 15:30 100 06/21/20 15:29 100 06/21/20 15:18 100 06/21/20 15:08 100 06/21/20 15:00 100 06/21/20 14:15 99 06/21/20 13:25 96 06/21/20 13:15 96 06/21/20 12:15 06/21/20 11:15 100 06/21/20 10:15 100 06/21/20 09:15 100 06/21/20 08:15 100 06/21/20 07:50 100 06/21/20 07:15 100 06/21/20 06:30 100 06/21/20 05:15 100 06/21/20 04:55 100 Laboratory Results Laboratory Results - last 24 hr 06/20/20 06/20/20 06/20/20 22:18 22:20 22:21 WBC 23.05 H RBC 4.65 Hgb 11.6 L POC Hgb 13.9 Hct 41.4 POC Hct 41 MCV 89.0 MCH 24.9 L MCHC 28.0 L RDW Std Deviation 61.1 H RDW Coeff of Tosin 18.9 H Plt Count 233 MPV Immature Gran % (Auto) 3.1 Neut % (Auto) 39.1 Lymph % (Auto) 45.5 Irion % (Auto) 9.8 Eos % (Auto) 1.9 Baso % (Auto) 0.6 Neut # (Auto) 9.00 H Lymph # (Auto) 10.49 H Irion # (Auto) 2.27 H Eos # (Auto) 0.44 Baso # (Auto) 0.13 Immature Gran # (Auto) 0.72 H Absolute Nucleated RBC 0.45 H Nucleated RBC % (auto) 1.9 Polychromasia 1+ Poikilocytosis Ovalocytes Echinocytes 1+ PT INR APTT PTT Ratio Specimen Type Sample Site Patient Temperature POC pH POC pCO2 POC pO2 POC HCO3 POC Base Excess O2 Sat Pulse Oximetry ABG pH (Temp Correct) ABG pCO2 (Temp Corrct POC ABG pO2 at Pt Temp POC ABG O2 Sat Hong Test Set Respiration Rate O2 Delivery Device POC O2 Rate Minute Ventilation Vent Mode Vent Setting Spontaneous Rate FiO2 (liters per min) POC FiO2 Tidal Volume Spontaneous Tidal Vol End Tidal CO2 PEEP High PEEP Setting Low PEEP Setting Pressure Support POC Pressure Suppt Pressure Support Vent Pressure High Time High Time Low EPAP IPAP POC Blood Gas Comment POC Sodium 135 Sodium POC Potassium 5.1 H Potassium POC Chloride 106 Chloride Carbon Dioxide POC Total CO2 15 L Anion Gap POC Anion Gap 21.0 POC BUN 29 H BUN Creatinine POC Creatinine 1.3 Est Cr Clr Drug Dosing Est GFR ( Amer) Est GFR (Non-Af Amer) BUN/Creatinine Ratio Glucose POC Glucose 530 H* POC Glucose (other) 462 H* Lactate Calcium POC Ioniz Calcium Manuel 1.11 L Ionized Calcium Phosphorus Magnesium Total Bilirubin AST ALT Alkaline Phosphatase Total Creatine Kinase CK-MB (CK-2) CK/CKMB % Calc Troponin I Total Protein Albumin Globulin Albumin/Globulin Ratio Lipase Beta-Hydroxybutyric Acd Specimen Hemolysis Urine Color Urine Appearance Urine pH Ur Specific [place] Urine Protein Urine Glucose (UA) Urine Ketones Urine Blood Urine Nitrite Urine Bilirubin Urine Urobilinogen Ur Leukocyte Esterase Urine WBC (Auto) Urine RBC (Auto) U Hyaline Cast (Auto) U Epithel Cells (Auto) Urine Bacteria (Auto) 06/20/20 06/20/20 06/20/20 22:21 22:21 23:14 WBC RBC Hgb POC Hgb 12.6 Hct POC Hct 37 MCV MCH MCHC RDW Std Deviation RDW Coeff of Tosin Plt Count MPV Immature Gran % (Auto) Neut % (Auto) Lymph % (Auto) Irion % (Auto) Eos % (Auto) Baso % (Auto) Neut # (Auto) Lymph # (Auto) Irion # (Auto) Eos # (Auto) Baso # (Auto) Immature Gran # (Auto) Absolute Nucleated RBC Nucleated RBC % (auto) Polychromasia Poikilocytosis Ovalocytes Echinocytes PT 11.1 INR 1.1 APTT 40.5 H PTT Ratio 1.5 Specimen Type Sample Site Patient Temperature POC pH 7.03 L* POC pCO2 50 H POC pO2 313 H POC HCO3 13 L POC Base Excess -18.0 L O2 Sat Pulse Oximetry ABG pH (Temp Correct) ABG pCO2 (Temp Corrct POC ABG pO2 at Pt Temp POC ABG O2 Sat 100.0 H Hong Test Set Respiration Rate O2 Delivery Device POC O2 Rate Minute Ventilation Vent Mode Vent Setting Spontaneous Rate FiO2 (liters per min) POC FiO2 Tidal Volume Spontaneous Tidal Vol End Tidal CO2 PEEP High PEEP Setting Low PEEP Setting Pressure Support POC Pressure Suppt Pressure Support Vent Pressure High Time High Time Low EPAP IPAP POC Blood Gas Comment POC Sodium 132 L Sodium 138 POC Potassium 4.3 Potassium 5.0 POC Chloride Chloride 102 Carbon Dioxide 16 L POC Total CO2 15 L Anion Gap 19.0 H POC Anion Gap POC BUN BUN 24 H Creatinine 1.75 H POC Creatinine Est Cr Clr Drug Dosing 41.3 Est GFR ( Amer) 34.8 Est GFR (Non-Af Amer) 30.0 BUN/Creatinine Ratio 13.5 Glucose 460 H* POC Glucose POC Glucose (other) Lactate Calcium 9.4 POC Ioniz Calcium Manuel Ionized Calcium Phosphorus Magnesium Total Bilirubin 0.4 AST 54 H ALT 31 Alkaline Phosphatase 188 H Total Creatine Kinase 153 CK-MB (CK-2) 2.5 CK/CKMB % Calc 1.6 Troponin I 0.177 H* Total Protein 6.5 Albumin 2.7 L Globulin 3.8 Albumin/Globulin Ratio 0.7 L Lipase 72 L Beta-Hydroxybutyric Acd Specimen Hemolysis Urine Color Urine Appearance Urine pH Ur Specific [place] Urine Protein Urine Glucose (UA) Urine Ketones Urine Blood Urine Nitrite Urine Bilirubin Urine Urobilinogen Ur Leukocyte Esterase Urine WBC (Auto) Urine RBC (Auto) U Hyaline Cast (Auto) U Epithel Cells (Auto) Urine Bacteria (Auto) 06/21/20 06/21/20 06/21/20 00:56 00:56 00:56 WBC 28.77 H RBC 4.51 Hgb 11.3 L POC Hgb Hct 38.2 POC Hct MCV 84.7 MCH 25.1 MCHC 29.6 L RDW Std Deviation 57.3 H RDW Coeff of Tosin 18.4 H Plt Count 214 MPV Immature Gran % (Auto) 1.4 Neut % (Auto) 85.3 Lymph % (Auto) 7.1 Irion % (Auto) 5.5 Eos % (Auto) 0.5 Baso % (Auto) 0.2 Neut # (Auto) 24.56 H Lymph # (Auto) 2.03 Irion # (Auto) 1.59 H Eos # (Auto) 0.13 Baso # (Auto) 0.05 Immature Gran # (Auto) 0.41 H Absolute Nucleated RBC 0.08 H Nucleated RBC % (auto) 0.3 Polychromasia 1+ Poikilocytosis Present Ovalocytes Echinocytes PT 11.7 INR 1.1 APTT 28.6 PTT Ratio 1.0 Specimen Type Sample Site Patient Temperature POC pH POC pCO2 POC pO2 POC HCO3 POC Base Excess O2 Sat Pulse Oximetry ABG pH (Temp Correct) ABG pCO2 (Temp Corrct POC ABG pO2 at Pt Temp POC ABG O2 Sat Hong Test Set Respiration Rate O2 Delivery Device POC O2 Rate Minute Ventilation Vent Mode Vent Setting Spontaneous Rate FiO2 (liters per min) POC FiO2 Tidal Volume Spontaneous Tidal Vol End Tidal CO2 PEEP High PEEP Setting Low PEEP Setting Pressure Support POC Pressure Suppt Pressure Support Vent Pressure High Time High Time Low EPAP IPAP POC Blood Gas Comment POC Sodium Sodium POC Potassium Potassium POC Chloride Chloride Carbon Dioxide POC Total CO2 Anion Gap POC Anion Gap POC BUN BUN Creatinine POC Creatinine Est Cr Clr Drug Dosing Est GFR ( Amer) Est GFR (Non-Af Amer) BUN/Creatinine Ratio Glucose POC Glucose POC Glucose (other) Lactate Calcium POC Ioniz Calcium Manuel Ionized Calcium 1.03 L Phosphorus Magnesium Total Bilirubin AST ALT Alkaline Phosphatase Total Creatine Kinase CK-MB (CK-2) CK/CKMB % Calc Troponin I Total Protein Albumin Globulin Albumin/Globulin Ratio Lipase Beta-Hydroxybutyric Acd Specimen Hemolysis Urine Color Urine Appearance Urine pH Ur Specific [place] Urine Protein Urine Glucose (UA) Urine Ketones Urine Blood Urine Nitrite Urine Bilirubin Urine Urobilinogen Ur Leukocyte Esterase Urine WBC (Auto) Urine RBC (Auto) U Hyaline Cast (Auto) U Epithel Cells (Auto) Urine Bacteria (Auto) 06/21/20 06/21/20 06/21/20 00:56 00:56 01:18 WBC RBC Hgb POC Hgb 12.9 Hct POC Hct 38 MCV MCH MCHC RDW Std Deviation RDW Coeff of Tosin Plt Count MPV Immature Gran % (Auto) Neut % (Auto) Lymph % (Auto) Irion % (Auto) Eos % (Auto) Baso % (Auto) Neut # (Auto) Lymph # (Auto) Irion # (Auto) Eos # (Auto) Baso # (Auto) Immature Gran # (Auto) Absolute Nucleated RBC Nucleated RBC % (auto) Polychromasia Poikilocytosis Ovalocytes Echinocytes PT INR APTT PTT Ratio Specimen Type Sample Site Art Line Patient Temperature POC pH 7.21 L POC pCO2 47 H POC pO2 81 POC HCO3 19 POC Base Excess -9.0 O2 Sat Pulse Oximetry ABG pH (Temp Correct) 7.252 L ABG pCO2 (Temp Corrct 41 POC ABG pO2 at Pt Temp 64 POC ABG O2 Sat 93.0 Hong Test NA Set Respiration Rate O2 Delivery Device Ventilator POC O2 Rate 24 Minute Ventilation 13.1 Vent Mode Vent Setting Spontaneous Rate FiO2 (liters per min) POC FiO2 50 Tidal Volume 450 Spontaneous Tidal Vol End Tidal CO2 PEEP 8 High PEEP Setting Low PEEP Setting Pressure Support POC Pressure Suppt Pressure Support Vent Pressure High Time High Time Low EPAP IPAP POC Blood Gas Comment POC Sodium 135 Sodium 138 POC Potassium 4.1 Potassium 4.3 POC Chloride Chloride 100 Carbon Dioxide 19 L POC Total CO2 20 L Anion Gap 19.0 H POC Anion Gap POC BUN BUN 26 H Creatinine 1.95 H POC Creatinine Est Cr Clr Drug Dosing 37.0 Est GFR ( Amer) 30.5 Est GFR (Non-Af Amer) 26.3 BUN/Creatinine Ratio 13.2 Glucose 480 H* POC Glucose POC Glucose (other) Lactate 9.5 H* Calcium 8.0 L POC Ioniz Calcium Manuel Ionized Calcium Phosphorus 8.0 H Magnesium 2.6 H Total Bilirubin AST ALT Alkaline Phosphatase Total Creatine Kinase CK-MB (CK-2) 8.1 H CK/CKMB % Calc Troponin I 0.618 H* Total Protein Albumin Globulin Albumin/Globulin Ratio Lipase Beta-Hydroxybutyric Acd 5.09 H Specimen Hemolysis Urine Color Urine Appearance Urine pH Ur Specific Ad[place] Urine Protein Urine Glucose (UA) Urine Ketones Urine Blood Urine Nitrite Urine Bilirubin Urine Urobilinogen Ur Leukocyte Esterase Urine WBC (Auto) Urine RBC (Auto) U Hyaline Cast (Auto) U Epithel Cells (Auto) Urine Bacteria (Auto) 06/21/20 06/21/20 06/21/20 02:49 04:01 04:04 WBC RBC Hgb POC Hgb 13.6 Hct POC Hct 40 MCV MCH MCHC RDW Std Deviation RDW Coeff of Tosin Plt Count MPV Immature Gran % (Auto) Neut % (Auto) Lymph % (Auto) Irion % (Auto) Eos % (Auto) Baso % (Auto) Neut # (Auto) Lymph # (Auto) Irion # (Auto) Eos # (Auto) Baso # (Auto) Immature Gran # (Auto) Absolute Nucleated RBC Nucleated RBC % (auto) Polychromasia Poikilocytosis Ovalocytes Echinocytes PT INR APTT PTT Ratio Specimen Type Sample Site Art Line Patient Temperature POC pH 7.25 L POC pCO2 47 H POC pO2 102 H POC HCO3 21 POC Base Excess -7.0 O2 Sat Pulse Oximetry ABG pH (Temp Correct) 7.301 L ABG pCO2 (Temp Corrct 40 POC ABG pO2 at Pt Temp 81 POC ABG O2 Sat 97.0 H Hong Test NA Set Respiration Rate O2 Delivery Device Ventilator POC O2 Rate 28 Minute Ventilation 11.5 Vent Mode Vent Setting Spontaneous Rate FiO2 (liters per min) POC FiO2 60 Tidal Volume 450 Spontaneous Tidal Vol End Tidal CO2 PEEP 8 High PEEP Setting Low PEEP Setting Pressure Support POC Pressure Suppt Pressure Support Vent Pressure High Time High Time Low EPAP IPAP POC Blood Gas Comment POC Sodium 136 Sodium POC Potassium 3.1 L Potassium POC Chloride Chloride Carbon Dioxide POC Total CO2 22 L Anion Gap POC Anion Gap POC BUN BUN Creatinine POC Creatinine Est Cr Clr Drug Dosing Est GFR ( Amer) Est GFR (Non-Af Amer) BUN/Creatinine Ratio Glucose POC Glucose POC Glucose (other) 550 H* Lactate 6.2 H* Calcium POC Ioniz Calcium Manuel Ionized Calcium Phosphorus Magnesium Total Bilirubin AST ALT Alkaline Phosphatase Total Creatine Kinase CK-MB (CK-2) CK/CKMB % Calc Troponin I Total Protein Albumin Globulin Albumin/Globulin Ratio Lipase Beta-Hydroxybutyric Acd Specimen Hemolysis Urine Color Urine Appearance Urine pH Ur Specific [place] Urine Protein Urine Glucose (UA) Urine Ketones Urine Blood Urine Nitrite Urine Bilirubin Urine Urobilinogen Ur Leukocyte Esterase Urine WBC (Auto) Urine RBC (Auto) U Hyaline Cast (Auto) U Epithel Cells (Auto) Urine Bacteria (Auto) 06/21/20 06/21/20 06/21/20 04:07 04:56 05:57 WBC RBC Hgb POC Hgb Hct POC Hct MCV MCH MCHC RDW Std Deviation RDW Coeff of Tosin Plt Count MPV Immature Gran % (Auto) Neut % (Auto) Lymph % (Auto) Irion % (Auto) Eos % (Auto) Baso % (Auto) Neut # (Auto) Lymph # (Auto) Irion # (Auto) Eos # (Auto) Baso # (Auto) Immature Gran # (Auto) Absolute Nucleated RBC Nucleated RBC % (auto) Polychromasia Poikilocytosis Ovalocytes Echinocytes PT INR APTT PTT Ratio Specimen Type Sample Site Patient Temperature POC pH POC pCO2 POC pO2 POC HCO3 POC Base Excess O2 Sat Pulse Oximetry ABG pH (Temp Correct) ABG pCO2 (Temp Corrct POC ABG pO2 at Pt Temp POC ABG O2 Sat Hong Test Set Respiration Rate O2 Delivery Device POC O2 Rate Minute Ventilation Vent Mode Vent Setting Spontaneous Rate FiO2 (liters per min) POC FiO2 Tidal Volume Spontaneous Tidal Vol End Tidal CO2 PEEP High PEEP Setting Low PEEP Setting Pressure Support POC Pressure Suppt Pressure Support Vent Pressure High Time High Time Low EPAP IPAP POC Blood Gas Comment POC Sodium Sodium POC Potassium Potassium POC Chloride Chloride Carbon Dioxide POC Total CO2 Anion Gap POC Anion Gap POC BUN BUN Creatinine POC Creatinine Est Cr Clr Drug Dosing Est GFR ( Amer) Est GFR (Non-Af Amer) BUN/Creatinine Ratio Glucose POC Glucose 422 H* POC Glucose (other) 495 H* 442 H* Lactate Calcium POC Ioniz Calcium Manuel Ionized Calcium Phosphorus Magnesium Total Bilirubin AST ALT Alkaline Phosphatase Total Creatine Kinase CK-MB (CK-2) CK/CKMB % Calc Troponin I Total Protein Albumin Globulin Albumin/Globulin Ratio Lipase Beta-Hydroxybutyric Acd Specimen Hemolysis Urine Color Urine Appearance Urine pH Ur Specific [place] Urine Protein Urine Glucose (UA) Urine Ketones Urine Blood Urine Nitrite Urine Bilirubin Urine Urobilinogen Ur Leukocyte Esterase Urine WBC (Auto) Urine RBC (Auto) U Hyaline Cast (Auto) U Epithel Cells (Auto) Urine Bacteria (Auto) 06/21/20 06/21/20 06/21/20 05:59 05:59 05:59 WBC 25.29 H RBC 4.66 Hgb 11.8 L POC Hgb Hct 39.5 POC Hct MCV 84.8 MCH 25.3 MCHC 29.9 L RDW Std Deviation 56.5 H RDW Coeff of Tosin 18.3 H Plt Count 181 MPV Immature Gran % (Auto) 0.6 Neut % (Auto) 89.4 Lymph % (Auto) 3.8 Irion % (Auto) 6.0 Eos % (Auto) 0.1 Baso % (Auto) 0.1 Neut # (Auto) 22.63 H Lymph # (Auto) 0.96 L Irion # (Auto) 1.51 H Eos # (Auto) 0.02 Baso # (Auto) 0.02 Immature Gran # (Auto) 0.15 H Absolute Nucleated RBC Nucleated RBC % (auto) Polychromasia 1+ Poikilocytosis Ovalocytes 1+ Echinocytes 1+ PT 11.7 INR 1.1 APTT 29.1 PTT Ratio 1.0 Specimen Type Sample Site Patient Temperature POC pH POC pCO2 POC pO2 POC HCO3 POC Base Excess O2 Sat Pulse Oximetry ABG pH (Temp Correct) ABG pCO2 (Temp Corrct POC ABG pO2 at Pt Temp POC ABG O2 Sat Hong Test Set Respiration Rate O2 Delivery Device POC O2 Rate Minute Ventilation Vent Mode Vent Setting Spontaneous Rate FiO2 (liters per min) POC FiO2 Tidal Volume Spontaneous Tidal Vol End Tidal CO2 PEEP High PEEP Setting Low PEEP Setting Pressure Support POC Pressure Suppt Pressure Support Vent Pressure High Time High Time Low EPAP IPAP POC Blood Gas Comment POC Sodium Sodium 139 POC Potassium Potassium 3.1 L D POC Chloride Chloride 100 Carbon Dioxide 24 POC Total CO2 Anion Gap 15.0 H POC Anion Gap POC BUN BUN 27 H Creatinine 2.02 H POC Creatinine Est Cr Clr Drug Dosing 36.2 Est GFR ( Amer) 29.3 Est GFR (Non-Af Amer) 25.2 BUN/Creatinine Ratio 13.4 Glucose 416 H* POC Glucose POC Glucose (other) Lactate Calcium 8.4 L POC Ioniz Calcium Manuel Ionized Calcium Phosphorus 4.9 D Magnesium 3.4 H Total Bilirubin AST ALT Alkaline Phosphatase Total Creatine Kinase CK-MB (CK-2) CK/CKMB % Calc Troponin I Total Protein Albumin Globulin Albumin/Globulin Ratio Lipase Beta-Hydroxybutyric Acd 1.94 Specimen Hemolysis Urine Color Urine Appearance Urine pH Ur Specific [place] Urine Protein Urine Glucose (UA) Urine Ketones Urine Blood Urine Nitrite Urine Bilirubin Urine Urobilinogen Ur Leukocyte Esterase Urine WBC (Auto) Urine RBC (Auto) U Hyaline Cast (Auto) U Epithel Cells (Auto) Urine Bacteria (Auto) 06/21/20 06/21/20 06/21/20 08:05 09:16 10:08 WBC RBC Hgb POC Hgb Hct POC Hct MCV MCH MCHC RDW Std Deviation RDW Coeff of Tosin Plt Count MPV Immature Gran % (Auto) Neut % (Auto) Lymph % (Auto) Irion % (Auto) Eos % (Auto) Baso % (Auto) Neut # (Auto) Lymph # (Auto) Irion # (Auto) Eos # (Auto) Baso # (Auto) Immature Gran # (Auto) Absolute Nucleated RBC Nucleated RBC % (auto) Polychromasia Poikilocytosis Ovalocytes Echinocytes PT INR APTT PTT Ratio Specimen Type Sample Site Patient Temperature POC pH POC pCO2 POC pO2 POC HCO3 POC Base Excess O2 Sat Pulse Oximetry ABG pH (Temp Correct) ABG pCO2 (Temp Corrct POC ABG pO2 at Pt Temp POC ABG O2 Sat Hong Test Set Respiration Rate O2 Delivery Device POC O2 Rate Minute Ventilation Vent Mode Vent Setting Spontaneous Rate FiO2 (liters per min) POC FiO2 Tidal Volume Spontaneous Tidal Vol End Tidal CO2 PEEP High PEEP Setting Low PEEP Setting Pressure Support POC Pressure Suppt Pressure Support Vent Pressure High Time High Time Low EPAP IPAP POC Blood Gas Comment POC Sodium Sodium POC Potassium Potassium POC Chloride Chloride Carbon Dioxide POC Total CO2 Anion Gap POC Anion Gap POC BUN BUN Creatinine POC Creatinine Est Cr Clr Drug Dosing Est GFR ( Amer) Est GFR (Non-Af Amer) BUN/Creatinine Ratio Glucose POC Glucose POC Glucose (other) 250 H 192 H 159 H Lactate Calcium POC Ioniz Calcium Manuel Ionized Calcium Phosphorus Magnesium Total Bilirubin AST ALT Alkaline Phosphatase Total Creatine Kinase CK-MB (CK-2) CK/CKMB % Calc Troponin I Total Protein Albumin Globulin Albumin/Globulin Ratio Lipase Beta-Hydroxybutyric Acd Specimen Hemolysis Urine Color Urine Appearance Urine pH Ur Specific [place] Urine Protein Urine Glucose (UA) Urine Ketones Urine Blood Urine Nitrite Urine Bilirubin Urine Urobilinogen Ur Leukocyte Esterase Urine WBC (Auto) Urine RBC (Auto) U Hyaline Cast (Auto) U Epithel Cells (Auto) Urine Bacteria (Auto) 06/21/20 06/21/20 06/21/20 10:22 11:00 11:50 WBC 23.79 H RBC 4.43 Hgb 11.2 L POC Hgb Hct 36.6 L POC Hct MCV 82.6 MCH 25.3 MCHC 30.6 L RDW Std Deviation 54.6 H RDW Coeff of Tosin 18.1 H Plt Count 185 MPV 12.2 H Immature Gran % (Auto) 0.5 Neut % (Auto) 88.4 Lymph % (Auto) 3.8 Irion % (Auto) 7.3 Eos % (Auto) 0.0 Baso % (Auto) 0.0 Neut # (Auto) 21.00 H Lymph # (Auto) 0.91 L Irion # (Auto) 1.73 H Eos # (Auto) 0.01 Baso # (Auto) 0.01 Immature Gran # (Auto) 0.13 H Absolute Nucleated RBC 0.07 H Nucleated RBC % (auto) 0.3 Polychromasia Poikilocytosis Ovalocytes Echinocytes PT INR APTT PTT Ratio Specimen Type Sample Site Patient Temperature POC pH POC pCO2 POC pO2 POC HCO3 POC Base Excess O2 Sat Pulse Oximetry ABG pH (Temp Correct) ABG pCO2 (Temp Corrct POC ABG pO2 at Pt Temp POC ABG O2 Sat Hong Test Set Respiration Rate O2 Delivery Device POC O2 Rate Minute Ventilation Vent Mode Vent Setting Spontaneous Rate FiO2 (liters per min) POC FiO2 Tidal Volume Spontaneous Tidal Vol End Tidal CO2 PEEP High PEEP Setting Low PEEP Setting Pressure Support POC Pressure Suppt Pressure Support Vent Pressure High Time High Time Low EPAP IPAP POC Blood Gas Comment POC Sodium Sodium POC Potassium Potassium POC Chloride Chloride Carbon Dioxide POC Total CO2 Anion Gap POC Anion Gap POC BUN BUN Creatinine POC Creatinine Est Cr Clr Drug Dosing Est GFR ( Amer) Est GFR (Non-Af Amer) BUN/Creatinine Ratio Glucose POC Glucose POC Glucose (other) 137 H Lactate 5.5 H* Calcium POC Ioniz Calcium Manuel Ionized Calcium Phosphorus Magnesium Total Bilirubin AST ALT Alkaline Phosphatase Total Creatine Kinase CK-MB (CK-2) CK/CKMB % Calc Troponin I Total Protein Albumin Globulin Albumin/Globulin Ratio Lipase Beta-Hydroxybutyric Acd Specimen Hemolysis Urine Color Urine Appearance Urine pH Ur Specific [place] Urine Protein Urine Glucose (UA) Urine Ketones Urine Blood Urine Nitrite Urine Bilirubin Urine Urobilinogen Ur Leukocyte Esterase Urine WBC (Auto) Urine RBC (Auto) U Hyaline Cast (Auto) U Epithel Cells (Auto) Urine Bacteria (Auto) 06/21/20 06/21/20 06/21/20 11:50 11:50 11:56 WBC RBC Hgb POC Hgb Hct POC Hct MCV MCH MCHC RDW Std Deviation RDW Coeff of Tosin Plt Count MPV Immature Gran % (Auto) Neut % (Auto) Lymph % (Auto) Irion % (Auto) Eos % (Auto) Baso % (Auto) Neut # (Auto) Lymph # (Auto) Irion # (Auto) Eos # (Auto) Baso # (Auto) Immature Gran # (Auto) Absolute Nucleated RBC Nucleated RBC % (auto) Polychromasia Poikilocytosis Ovalocytes Echinocytes PT 11.6 INR 1.1 APTT 25.8 PTT Ratio 0.9 Specimen Type Sample Site Patient Temperature POC pH POC pCO2 POC pO2 POC HCO3 POC Base Excess O2 Sat Pulse Oximetry ABG pH (Temp Correct) ABG pCO2 (Temp Corrct POC ABG pO2 at Pt Temp POC ABG O2 Sat Hong Test Set Respiration Rate O2 Delivery Device POC O2 Rate Minute Ventilation Vent Mode Vent Setting Spontaneous Rate FiO2 (liters per min) POC FiO2 Tidal Volume Spontaneous Tidal Vol End Tidal CO2 PEEP High PEEP Setting Low PEEP Setting Pressure Support POC Pressure Suppt Pressure Support Vent Pressure High Time High Time Low EPAP IPAP POC Blood Gas Comment POC Sodium Sodium 142 POC Potassium Potassium 3.6 D POC Chloride Chloride 106 Carbon Dioxide 26 POC Total CO2 Anion Gap 10.0 POC Anion Gap POC BUN BUN 29 H Creatinine 1.88 H POC Creatinine Est Cr Clr Drug Dosing 38.9 Est GFR ( Amer) 31.9 Est GFR (Non-Af Amer) 27.5 BUN/Creatinine Ratio 15.4 Glucose 118 H POC Glucose POC Glucose (other) 116 H Lactate Calcium 8.2 L POC Ioniz Calcium Manuel Ionized Calcium Phosphorus 3.9 D Magnesium 2.9 H Total Bilirubin AST ALT Alkaline Phosphatase Total Creatine Kinase CK-MB (CK-2) CK/CKMB % Calc Troponin I Total Protein Albumin Globulin Albumin/Globulin Ratio Lipase Beta-Hydroxybutyric Acd Specimen Hemolysis Urine Color Urine Appearance Urine pH Ur Specific Adell Urine Protein Urine Glucose (UA) Urine Ketones Urine Blood Urine Nitrite Urine Bilirubin Urine Urobilinogen Ur Leukocyte Esterase Urine WBC (Auto) Urine RBC (Auto) U Hyaline Cast (Auto) U Epithel Cells (Auto) Urine Bacteria (Auto) 06/21/20 06/21/20 06/21/20 12:15 13:25 13:25 WBC RBC Hgb POC Hgb Hct POC Hct MCV MCH MCHC RDW Std Deviation RDW Coeff of Tosin Plt Count MPV Immature Gran % (Auto) Neut % (Auto) Lymph % (Auto) Irion % (Auto) Eos % (Auto) Baso % (Auto) Neut # (Auto) Lymph # (Auto) Irion # (Auto) Eos # (Auto) Baso # (Auto) Immature Gran # (Auto) Absolute Nucleated RBC Nucleated RBC % (auto) Polychromasia Poikilocytosis Ovalocytes Echinocytes PT INR APTT PTT Ratio Specimen Type Cancelled Sample Site Cancelled Patient Temperature Cancelled POC pH Cancelled Pending POC pCO2 Cancelled Pending POC pO2 Cancelled Pending POC HCO3 Cancelled Pending POC Base Excess Cancelled Pending O2 Sat Pulse Oximetry Cancelled ABG pH (Temp Correct) Cancelled ABG pCO2 (Temp Corrct Cancelled POC ABG pO2 at Pt Temp Cancelled POC ABG O2 Sat Cancelled Hong Test Cancelled Set Respiration Rate Cancelled O2 Delivery Device Cancelled POC O2 Rate Cancelled Minute Ventilation Cancelled Vent Mode Cancelled Vent Setting Cancelled Spontaneous Rate Cancelled FiO2 (liters per min) Cancelled POC FiO2 Cancelled Tidal Volume Cancelled Spontaneous Tidal Vol Cancelled End Tidal CO2 Cancelled PEEP Cancelled High PEEP Setting Cancelled Low PEEP Setting Cancelled Pressure Support Cancelled POC Pressure Suppt Cancelled Pressure Support Vent Cancelled Pressure High Cancelled Time High Cancelled Time Low Cancelled EPAP Cancelled IPAP Cancelled POC Blood Gas Comment Cancelled POC Sodium Sodium POC Potassium Potassium POC Chloride Chloride Carbon Dioxide POC Total CO2 Cancelled Pending Anion Gap POC Anion Gap POC BUN BUN Creatinine POC Creatinine Est Cr Clr Drug Dosing Est GFR ( Amer) Est GFR (Non-Af Amer) BUN/Creatinine Ratio Glucose POC Glucose POC Glucose (other) Lactate Calcium POC Ioniz Calcium Manuel Ionized Calcium Phosphorus Magnesium Total Bilirubin AST ALT Alkaline Phosphatase Total Creatine Kinase CK-MB (CK-2) CK/CKMB % Calc Troponin I Total Protein Albumin Globulin Albumin/Globulin Ratio Lipase Beta-Hydroxybutyric Acd Specimen Hemolysis Urine Color Yellow Urine Appearance Cloudy A Urine pH 5.0 Ur Specific Adell > 1.045 H Urine Protein 2+ H Urine Glucose (UA) Trace H Urine Ketones Negative Urine Blood 3+ H Urine Nitrite Negative Urine Bilirubin Negative Urine Urobilinogen Negative Ur Leukocyte Esterase 1+ H Urine WBC (Auto) >30 H Urine RBC (Auto) 10-30 H U Hyaline Cast (Auto) 1-5 U Epithel Cells (Auto) 10-20 H Urine Bacteria (Auto) 2+ H 06/21/20 06/21/20 06/21/20 13:32 14:31 15:05 WBC RBC Hgb POC Hgb Hct POC Hct MCV MCH MCHC RDW Std Deviation RDW Coeff of Tosin Plt Count MPV Immature Gran % (Auto) Neut % (Auto) Lymph % (Auto) Irion % (Auto) Eos % (Auto) Baso % (Auto) Neut # (Auto) Lymph # (Auto) Irion # (Auto) Eos # (Auto) Baso # (Auto) Immature Gran # (Auto) Absolute Nucleated RBC Nucleated RBC % (auto) Polychromasia Poikilocytosis Ovalocytes Echinocytes PT INR APTT PTT Ratio Specimen Type Sample Site Patient Temperature POC pH POC pCO2 POC pO2 POC HCO3 POC Base Excess O2 Sat Pulse Oximetry ABG pH (Temp Correct) ABG pCO2 (Temp Corrct POC ABG pO2 at Pt Temp POC ABG O2 Sat Hong Test Set Respiration Rate O2 Delivery Device POC O2 Rate Minute Ventilation Vent Mode Vent Setting Spontaneous Rate FiO2 (liters per min) POC FiO2 Tidal Volume Spontaneous Tidal Vol End Tidal CO2 PEEP High PEEP Setting Low PEEP Setting Pressure Support POC Pressure Suppt Pressure Support Vent Pressure High Time High Time Low EPAP IPAP POC Blood Gas Comment POC Sodium Sodium POC Potassium Potassium POC Chloride Chloride Carbon Dioxide POC Total CO2 Anion Gap POC Anion Gap POC BUN BUN Creatinine POC Creatinine Est Cr Clr Drug Dosing Est GFR ( Amer) Est GFR (Non-Af Amer) BUN/Creatinine Ratio Glucose POC Glucose POC Glucose (other) 156 H 86 140 H Lactate Calcium POC Ioniz Calcium Manuel Ionized Calcium Phosphorus Magnesium Total Bilirubin AST ALT Alkaline Phosphatase Total Creatine Kinase CK-MB (CK-2) CK/CKMB % Calc Troponin I Total Protein Albumin Globulin Albumin/Globulin Ratio Lipase Beta-Hydroxybutyric Acd Specimen Hemolysis Urine Color Urine Appearance Urine pH Ur Specific [place] Urine Protein Urine Glucose (UA) Urine Ketones Urine Blood Urine Nitrite Urine Bilirubin Urine Urobilinogen Ur Leukocyte Esterase Urine WBC (Auto) Urine RBC (Auto) U Hyaline Cast (Auto) U Epithel Cells (Auto) Urine Bacteria (Auto) 06/21/20 06/21/20 06/21/20 15:47 15:47 15:56 WBC RBC Hgb POC Hgb Hct POC Hct MCV MCH MCHC RDW Std Deviation RDW Coeff of Tosin Plt Count MPV Immature Gran % (Auto) Neut % (Auto) Lymph % (Auto) Irion % (Auto) Eos % (Auto) Baso % (Auto) Neut # (Auto) Lymph # (Auto) Irion # (Auto) Eos # (Auto) Baso # (Auto) Immature Gran # (Auto) Absolute Nucleated RBC Nucleated RBC % (auto) Polychromasia Poikilocytosis Ovalocytes Echinocytes PT INR APTT PTT Ratio Specimen Type Cancelled Sample Site Cancelled Patient Temperature Cancelled POC pH Cancelled Pending POC pCO2 Cancelled Pending POC pO2 Cancelled Pending POC HCO3 Cancelled Pending POC Base Excess Cancelled Pending O2 Sat Pulse Oximetry Cancelled ABG pH (Temp Correct) Cancelled ABG pCO2 (Temp Corrct Cancelled POC ABG pO2 at Pt Temp Cancelled POC ABG O2 Sat Cancelled Hong Test Cancelled Set Respiration Rate Cancelled O2 Delivery Device Cancelled POC O2 Rate Cancelled Minute Ventilation Cancelled Vent Mode Cancelled Vent Setting Cancelled Spontaneous Rate Cancelled FiO2 (liters per min) Cancelled POC FiO2 Cancelled Tidal Volume Cancelled Spontaneous Tidal Vol Cancelled End Tidal CO2 Cancelled PEEP Cancelled High PEEP Setting Cancelled Low PEEP Setting Cancelled Pressure Support Cancelled POC Pressure Suppt Cancelled Pressure Support Vent Cancelled Pressure High Cancelled Time High Cancelled Time Low Cancelled EPAP Cancelled IPAP Cancelled POC Blood Gas Comment Cancelled POC Sodium Sodium POC Potassium Potassium POC Chloride Chloride Carbon Dioxide POC Total CO2 Cancelled Pending Anion Gap POC Anion Gap POC BUN BUN Creatinine POC Creatinine Est Cr Clr Drug Dosing Est GFR ( Amer) Est GFR (Non-Af Amer) BUN/Creatinine Ratio Glucose POC Glucose POC Glucose (other) 132 H Lactate Calcium POC Ioniz Calcium Manuel Ionized Calcium Phosphorus Magnesium Total Bilirubin AST ALT Alkaline Phosphatase Total Creatine Kinase CK-MB (CK-2) CK/CKMB % Calc Troponin I Total Protein Albumin Globulin Albumin/Globulin Ratio Lipase Beta-Hydroxybutyric Acd Specimen Hemolysis Urine Color Urine Appearance Urine pH Ur Specific [place] Urine Protein Urine Glucose (UA) Urine Ketones Urine Blood Urine Nitrite Urine Bilirubin Urine Urobilinogen Ur Leukocyte Esterase Urine WBC (Auto) Urine RBC (Auto) U Hyaline Cast (Auto) U Epithel Cells (Auto) Urine Bacteria (Auto) 06/21/20 16:11 WBC RBC Hgb POC Hgb Hct POC Hct MCV MCH MCHC RDW Std Deviation RDW Coeff of Tosin Plt Count MPV Immature Gran % (Auto) Neut % (Auto) Lymph % (Auto) Irion % (Auto) Eos % (Auto) Baso % (Auto) Neut # (Auto) Lymph # (Auto) Irion # (Auto) Eos # (Auto) Baso # (Auto) Immature Gran # (Auto) Absolute Nucleated RBC Nucleated RBC % (auto) Polychromasia Poikilocytosis Ovalocytes Echinocytes PT INR APTT PTT Ratio Specimen Type Sample Site Patient Temperature POC pH POC pCO2 POC pO2 POC HCO3 POC Base Excess O2 Sat Pulse Oximetry ABG pH (Temp Correct) ABG pCO2 (Temp Corrct POC ABG pO2 at Pt Temp POC ABG O2 Sat Hong Test Set Respiration Rate O2 Delivery Device POC O2 Rate Minute Ventilation Vent Mode Vent Setting Spontaneous Rate FiO2 (liters per min) POC FiO2 Tidal Volume Spontaneous Tidal Vol End Tidal CO2 PEEP High PEEP Setting Low PEEP Setting Pressure Support POC Pressure Suppt Pressure Support Vent Pressure High Time High Time Low EPAP IPAP POC Blood Gas Comment POC Sodium Sodium POC Potassium Potassium POC Chloride Chloride Carbon Dioxide POC Total CO2 Anion Gap POC Anion Gap POC BUN BUN Creatinine POC Creatinine Est Cr Clr Drug Dosing Est GFR ( Amer) Est GFR (Non-Af Amer) BUN/Creatinine Ratio Glucose POC Glucose POC Glucose (other) Lactate Pending Calcium POC Ioniz Calcium Manuel Ionized Calcium Phosphorus Magnesium Total Bilirubin AST ALT Alkaline Phosphatase Total Creatine Kinase CK-MB (CK-2) CK/CKMB % Calc Troponin I Total Protein Albumin Globulin Albumin/Globulin Ratio Lipase Beta-Hydroxybutyric Acd Specimen Hemolysis Urine Color Urine Appearance Urine pH Ur Specific [place] Urine Protein Urine Glucose (UA) Urine Ketones Urine Blood Urine Nitrite Urine Bilirubin Urine Urobilinogen Ur Leukocyte Esterase Urine WBC (Auto) Urine RBC (Auto) U Hyaline Cast (Auto) U Epithel Cells (Auto) Urine Bacteria (Auto) Medications Administered Current Inpatient Medications Acetaminophen (Acetaminophen 650 Mg Supp) 650 mg MT ONE PRN PRN Reason: Rebound Hyperthermia x 1 dose Stop: 07/20/20 23:50 Albuterol (Albut/Ipratrop 3mg/0.5mg Neb 3 Ml Vial) 3 ml NEB Q4H PRN PRN Reason: Shortness Of Breath Or Wheezing Stop: 07/21/20 00:00 Buspirone HCl (Buspirone 15 Mg Tab) 60 mg NG ONCE PRN PRN Reason: For Shivering x 1 dose Stop: 07/20/20 23:50 Dextrose (Dextrose 50% 50 Ml Syringe) 25 - 50 ml IV UD PRN; Protocol PRN Reason: Hypoglycemia Protocol Stop: 07/21/20 01:59 Last Admin: 06/21/20 14:45 Dose: 25 ml Documented by: Fentanyl Citrate (Fentanyl Bolus From Bag) 50 mcg IV Q60M PRN PRN Reason: Pain or Agitation Stop: 07/04/20 23:55 Glucagon (Glucagon For Inj 1 Mg Vial) 1 mg IM UD PRN; Protocol PRN Reason: Hypoglycemia Protocol Stop: 07/21/20 01:59 Glucose (Glucose 40% Gel 15 Gm Tube) 15 - 30 gm PO UD PRN; Protocol PRN Reason: Hypoglycemia Protocol Stop: 07/21/20 01:59 Glucose (Glucose 10 Tabs/Tube) 4 - 8 tabs PO UD PRN; Protocol PRN Reason: Hypoglycemia Protocol Stop: 07/21/20 01:59 Propofol (Diprivan) 1,000 mg in 100 mls @ 29.16 mls/hr IV .Q3H26M [facility]YN; Protocol Stop: 06/23/20 23:44 Last Admin: 06/21/20 15:16 Dose: 45 mcg/kg/min, 29.2 mls/hr Documented by: Norepinephrine Bitartrate 8 mg (/ Dextrose) 508 mls @ 0 mls/hr IV .Q0M ROBYN; Protocol Stop: 07/20/20 23:44 Last Titration: 06/21/20 04:26 Dose: 0 mcg/kg/min, 0 mls/hr Documented by: Fentanyl Citrate (Fentanyl Drip) 1,250 mcg in 250 mls @ 10 mls/hr IV .Q25H [facility]; Protocol Stop: 07/04/20 23:44 Last Titration: 06/21/20 13:24 Dose: 50 mcg/hr, 10 mls/hr Documented by: Sodium Chloride (Nss 1000ml) 1,000 mls @ 80 mls/hr IV .[id number] [facility] Stop: 07/20/20 23:44 Last Admin: 06/21/20 09:46 Dose: 80 mls/hr Documented by: Pantoprazole Sodium 40 mg/ (Syringe) 10 mls @ 5 mls/min IV DAILY@1100 [facility] Stop: 07/21/20 10:59 Last Admin: 06/21/20 10:55 Dose: 5 mls/min Documented by: Insulin Human Regular 250 (units/ Sodium Chloride) 250 mls @ 2.4 mls/hr IV .Q24H [facility]; Protocol Stop: 07/21/20 01:44 Last Titration: 06/21/20 16:03 Dose: 2.4 units/hr, 2.4 mls/hr Documented by: Amiodarone HCl/Dextrose (Nexterone / D5w) 360 mg in 200 mls @ 16.667 mls/hr IV .Q12H [facility] Stop: 07/21/20 09:59 Last Infusion: 06/21/20 15:03 Dose: 0.5 mg/min, 16.7 mls/hr Documented by: Insulin Aspart (Insulin Aspart 100 Units/Ml 3 Ml Pen) 0 units SC ACHS [facility] Stop: 07/21/20 07:29 Last Admin: 06/21/20 11:06 Dose: Not Given Documented by: Meperidine HCl (Meperidine Hcl 25 Mg/Ml Carp/Vial) 25 mg IV Q2H PRN PRN Reason: Shivering Stop: 07/04/20 23:50 Miscellaneous (Carbohydrates For Hypoglycemia ) 15 - 30 gm PO PRN PRN PRN Reason: Hypoglycemia Treatment Stop: 07/21/20 01:59 Miscellaneous Information (Pharmacy Glycemic Mgmt Consult) 1 ea N/A UD PRN PRN Reason: Consult Stop: 07/21/20 01:42 Multi-Ingredient Cream (Artificial Tears Op Oint 3.5 Gm Tube) 1 appln OP Q2H PRN PRN Reason: eye protection Stop: 07/20/20 23:50 Propofol (Propofol Bolus From Bag) 20 mg IV Q5M PRN PRN Reason: Sedation Stop: 06/23/20 23:55 PG Care Time/CCT Total # of Minutes Spent Total Time Spent with Patient: Total time spent is greater than 50% in coordin ation of care (as documented) at patient's floor/unit and/or counseling patient: Coding Level of Care Code 39919 Subseq Hosp Care Lvl 3 Diagnoses Cardiac arrest I46.9 Admitted to intensive care unit Z78.9 Tonic clonic seizures G40.409 DKA (diabetic ketoacidosis) E11.10 Metabolic acidosis E87.2 ANNETTE (acute kidney injury) N17.9 CKD (chronic kidney disease) N18.9 CAD (coronary artery disease) I25.10 Associated angina: without angina Coronary Disease-Associated Artery/Lesion type: mohegan artery [place] vs. transplanted heart: mohegan heart Paroxysmal SVT (supraventricular tachycardia) I47.1 SSS (sick sinus syndrome) I49.5 HTN (hypertension) I10 Hypertension type: essential hypertension HLD (hyperlipidemia) E78.2 Hyperlipidemia type: mixed hyperlipidemia Uncontrolled type 2 diabetes mellitus, with long-term current use of insulin E11.65; Z79.4 (1) CAD (coronary artery disease) Associated angina: without angina Coronary Disease-Associated Artery/Lesion type: mo[place]gan artery [place] vs. transplanted heart: mohegan heart Qualified Code(s): I25.10 - Atherosclerotic heart disease of mohegan coronary artery without angina pectoris (2) HLD (hyperlipidemia) Hyperlipidemia type: mixed hyperlipidemia Qualified Code(s): E78.2 - Mixed hyperlipidemia (3) HTN (hypertension) Hypertension type: essential hypertension Qualified Code(s): I10 - Essential (primary) hypertension
[2020-06-21 16:53] LABS: iSTAT Art Bld Gas pCO2 Correct 58 mmHg (35-46); iSTAT Arterial Blood Gas HCO3 23 meg/L (19-24); iSTAT Arterial Blood Gas pCO2 69 mmHg (35-46); iSTAT Arterial Blood Gas pO2 88 mmHg (80-95); iSTAT Carbon Dioxide 25 mmol/L (24-31)
[2020-06-21 16:54] LABS: Patient Temperature 33.1; iSTAT Allen Test Acceptable; iSTAT FiO2 60 %; iSTAT Sample Type Arterial
[2020-06-21 16:59] LABS: iSTAT Art Bld Gas pCO2 Correct 42 mmHg (35-46); iSTAT Art Bld Gas pH Corrected 7.334 (7.35-7.45); iSTAT Arterial Blood Gas pCO2 49 mmHg (35-46); iSTAT Arterial Blood Gas pO2 93 mmHg (80-95)
[2020-06-21 17:00] LABS: Patient Temperature 33.6; iSTAT Allen Test Acceptable; iSTAT Arterial Blood Gas HCO3 23 meg/L (19-24); iSTAT Carbon Dioxide 25 mmol/L (24-31); iSTAT FiO2 60 %; iSTAT Sample Type Arterial
[2020-06-21 17:01] LABS: iSTAT Arterial Blood Gas pH 7.29 (7.35-7.45)
[2020-06-21] MEDS ORDERED: ICU ELECTROLYTE REPLACEMENT PROTOCOL PRN (17:06)
--- NOTE | 2020-06-21 17:06 | Critical Care Progress Note ---
Date of Service June 21, 2020 Assessment & Plan (1) Admitted to intensive care unit: -- VDRF Likely secondary to cardiac arrest --> status post cardiac cath which showed chronic occlusion of the RCA --> on hypothermia protocol Patient had STEMI on route to the ER but no ST elevation appreciated in the hospital. 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 -- HAGMA Delta-delta: Greater than 2, metabolic acidosis plus alkalosis Metabolic acidosis likely from DKA and lactic acidosis, metabolic alkalosis could be from bicarb given during the code Monitor --Epistaxis At the time of presentation status post nasal packing No more active bleeding appreciated Patient was on Xarelto at home. Monitor H&H --Leukocytosis Likely reactive to cardiac arrest Monitor --History of sick sinus syndrome and A. fib On Xarelto at home Currently on hold because of epistaxis when she presented --Prolonged QTC Avoid QT prolonging medication Keep potassium greater than 4, magnesium greater than 2, phosphorus greater than 3 --Hypokalemia Being replaced --Poor prognosis --Prophylaxis VTE: IPC's GI: Protonix Lines: Right femoral venous, left arterial femoral, positive Brown Diet: N.p.o. Plan: In/out: -219, urine output 700 Patient is on amiodarone drip as well because of A. fib with RVR in the ED. We will try to titrated off after the first 24 hours Neurological status of the patient given she has tonic-clonic seizures is not good. Most likely insult from hypoxia. Family was at bedside and was made aware that the prognosis is very poor. They agree and not escalating the care. Patient is bucking the vent a lot. She is not tolerating vent control assist control or PRVC. The only thing that she is tolerating is pressure support. We will continue with pressure support with possible SIMV with backup rate. I have personally spent 33 minutes of critical care time in the direct management of this patient. This is a life/limb threatening event. This includes time spent evaluating patient, direct bedside care, chart review, placing orders, interpretation of diagnostic studies, discussion with consultants, patient, and family members, as well as other required patient management activities. This time is exclusive of all separately billable procedures, and teaching time and separate from and in addition to any other critical care service time. Please note the above document was generated using voice recognition software. It may contain grammatical, syntax or spelling errors. (2) Cardiac arrest: (3) KELLY (obstructive sleep apnea): (4) COPD, moderate: Admission and Anticipated Discharge Date Admission Date: June 20, 2020 Subjective Patient seen and examined at bedside. On propofol 20, fentanyl 50 Patient was having active tonic-clonic seizures lasting for less than 30 seconds. Patient is on hypothermia protocol from the right femoral access. Review of Systems Review of Systems: Unobtainable due to cognitive status and Unobtainable due to endotracheal tube Physical Exam Physical Exam: Constitutional: No acute distress HEENT: Pupils nonreactive, positive ETT Respiratory system: Decreased air entry bilaterally, no wheeze, no rhonchi, mild crackles bilateral lower lobes CVS: S1-S2 positive, no murmurs or gallops Abdomen: Soft, nontender, nondistended, positive bowel sounds x4, obese Extremities: +2 pulses bilaterally radialis/ dorsalis pedis, no cyanosis, no edema Neuro: Sedated, positive gag, no corneal, decerebrate posturing appreciated Psych: Unable to assess G/U: Positive Brown Results & Data Results & Data ([facility]) Vital Signs (Past 12 Hours) Vital Signs Temp Temp Pulse Resp BP BP BP 06/21/20 16:30 33.5 C L 85 06/21/20 16:00 33.8 C L 88 06/21/20 15:38 33.5 C L 87 85/66 L 06/21/20 15:30 33.2 C L 88 06/21/20 15:29 33.1 C L 88 120/69 06/21/20 15:18 32.6 C L 89 06/21/20 15:08 33.0 C L 88 06/21/20 15:00 33.3 C L 89 06/21/20 14:15 33.2 C L 95 H 12 99/43 L 127/55 L 06/21/20 13:25 133 H 17 06/21/20 13:15 33.2 C L 136 H 34 H 110/88 06/21/20 12:15 33.5 C L 94 H 35 H 155/64 H 06/21/20 11:15 33.3 C L 94 H 33 H 91/68 L 06/21/20 10:15 33.2 C L 95 H 34 H 145/78 H 06/21/20 09:15 33.2 C L 92 H 34 H 105/81 06/21/20 08:15 33.2 C L 87 35 H 101/75 06/21/20 07:50 86 33 H 06/21/20 07:15 33.2 C L 83 28 H 148/132 H 06/21/20 06:30 33.1 C L 80 30 H 121/71 06/21/20 05:15 33.2 C L 87 30 H 123/57 L 06/21/20 04:55 87 29 H Pulse Ox 06/21/20 16:30 100 06/21/20 16:00 100 06/21/20 15:38 100 06/21/20 15:30 100 06/21/20 15:29 100 06/21/20 15:18 100 06/21/20 15:08 100 06/21/20 15:00 100 06/21/20 14:15 99 06/21/20 13:25 96 06/21/20 13:15 96 06/21/20 12:15 06/21/20 11:15 100 06/21/20 10:15 100 06/21/20 09:15 100 06/21/20 08:15 100 06/21/20 07:50 100 06/21/20 07:15 100 06/21/20 06:30 100 06/21/20 05:15 100 06/21/20 04:55 100 06/21/20 11:50 06/21/20 11:50 Coding Level of Care Code Critical Care ea addt'l 30 min Diagnoses Admitted to intensive care unit Z78.9 Cardiac arrest I46.9 KELLY (obstructive sleep apnea) G47.33 COPD, moderate J44.9 Time Spent (min) 33
[2020-06-21 18:14] LABS: Basophils # (auto) 0.01 K/uL (0-0.2); Hematocrit (blood only) 34.1 % (37-47); Hemoglobin 10.5 g/dL (12.0-16.0); Immature Granulocytes # (auto) 0.11 K/uL (0.00-0.02); Immature Granulocytes % (auto) 0.5 %; Lymphocytes # (auto) 1.45 K/uL (1.2-3.4); Lymphocytes % (auto) 6.9 %; Mean Corpuscular Hemoglobin 25.3 pg (25-34); Mean Corpuscular Hgb Conc 30.8 g/dL (32-36); Mean Corpuscular Volume 82.2 fL (80-100); Mean Platelet Volume 12.2 fL (7.4-10.4); Monocytes # (auto) 1.44 K/uL (0.11-0.59); Monocytes % (auto) 6.8 %; Neutrophils # (auto) 18.08 K/uL (1.4-6.5); Neutrophils % (auto) 85.8 %; Platelet Count 172 K/uL (130-400); RDW Standard Deviation 54.5 fL (36.4-46.3); Red Blood Count 4.15 M/uL (4.2-5.4); White Blood Count 21.09 K/uL (4.8-10.8)
[2020-06-21 18:26] LABS: INR 1.1 (0.9-1.1); Partial Thromboplastin Ratio 0.9; Partial Thromboplastin Time 26.3 Seconds (21.0-31.0); Prothrombin Time 11.4 Seconds (9.0-12.0)
[2020-06-21 19:32] LABS: BUN Creatinine Ratio 18.7 (10-20); Calcium 7.8 mg/dl (8.5-10.1); Creatinine Clr Calc Pharmacy 41.8 ml/min; Est GFR (African American) 34.8; Magnesium 2.6 mg/dl (1.8-2.4); Phosphorus 3.9 mg/dl (2.5-4.9); Potassium 4.3 mmol/L (3.5-5.1)
[2020-06-21 20:15] LABS: iSTAT Art Bld Gas pCO2 Correct 43 mmHg (35-46); iSTAT Art Bld Gas pH Corrected 7.306 (7.35-7.45); iSTAT Arterial Blood Gas HCO3 22 meg/L (19-24); iSTAT Arterial Blood Gas pCO2 50 mmHg (35-46); iSTAT Arterial Blood Gas pH 7.26 (7.35-7.45); iSTAT Arterial Blood Gas pO2 110 mmHg (80-95); iSTAT Arterial Blood Gas pO2 C 90; iSTAT Carbon Dioxide 24 mmol/L (24-31); iSTAT FiO2 60 %; iSTAT Hematocrit 33 % (37-47); iSTAT Hemoglobin 11.2 g/dl (12.0-16.0); iSTAT Potassium 4.9 mmol/L (3.3-5.0); iSTAT Site Art Line; iSTAT Sodium 138 mmol/L (135-144)
[2020-06-21] MEDS ORDERED: cefTRIAXone SODIUM 2,000 MG in DEXTROSE 5% 50 ML IV SCH (20:15)
[2020-06-21] MEDS: fentaNYL citrate 100 MCG/2 ML VIAL IV PRN ×2 (20:49→22:20)
[2020-06-21] MEDS ORDERED: fentaNYL citrate 100 MCG/2 ML VIAL IV STA (22:21)
[2020-06-21] MEDS: PROPOFOL BOLUS FROM BAG IV PRN (22:30)
[2020-06-22 00:14] LABS: iSTAT Art Bld Gas pCO2 Correct 43 mmHg (35-46); iSTAT Art Bld Gas pH Corrected 7.301 (7.35-7.45); iSTAT Arterial Blood Gas HCO3 22 meg/L (19-24); iSTAT Arterial Blood Gas pCO2 51 mmHg (35-46); iSTAT Arterial Blood Gas pH 7.25 (7.35-7.45); iSTAT Arterial Blood Gas pO2 121 mmHg (80-95); iSTAT Arterial Blood Gas pO2 C 99; iSTAT Carbon Dioxide 24 mmol/L (24-31); iSTAT FiO2 60 %; iSTAT Hematocrit 32 % (37-47); iSTAT Hemoglobin 10.9 g/dl (12.0-16.0); iSTAT Potassium 4.8 mmol/L (3.3-5.0); iSTAT Site Art Line; iSTAT Sodium 136 mmol/L (135-144)
[2020-06-22] MEDS: PROPOFOL BOLUS FROM BAG IV PRN ×2 (00:26→04:27)
[2020-06-22] MEDS: propofoL 1,000 MG/100 ML VIAL IV SCH ×5 (00:27→09:10)
[2020-06-22 00:29] LABS: Hematocrit (blood only) 34.4 % (37-47); Hemoglobin 10.5 g/dL (12.0-16.0); Mean Corpuscular Hemoglobin 25.4 pg (25-34); Mean Corpuscular Hgb Conc 30.5 g/dL (32-36); Mean Corpuscular Volume 83.1 fL (80-100); Mean Platelet Volume 12.2 fL (7.4-10.4); Nucleated RBC # (auto) 0.05 K/uL (0-0); Nucleated RBC % (auto) 0.2 %; Platelet Count 190 K/uL (130-400); RDW Coefficient of Variation 18.2 % (11.5-14.5); RDW Standard Deviation 56.1 fL (36.4-46.3); Red Blood Count 4.14 M/uL (4.2-5.4); White Blood Count 26.08 K/uL (4.8-10.8)
[2020-06-22 00:43] LABS: Partial Thromboplastin Ratio 0.9; Partial Thromboplastin Time 25.4 Seconds (21.0-31.0)
[2020-06-22 00:47] LABS: BUN Creatinine Ratio 18.2 (10-20); Creatinine Clr Calc Pharmacy 39.1 ml/min; Est GFR (African American) 32.1; Est GFR (Non-African American) 27.7; Magnesium 2.4 mg/dl (1.8-2.4); Potassium 4.9 mmol/L (3.5-5.1)
[2020-06-22 00:55] LABS: Phosphorus 4.9 mg/dl (2.5-4.9)
[2020-06-22 01:05] LABS: Basophils # (auto) 0.01 K/uL (0-0.2); Echinocytes 1+; Eosinophils # (auto) 0.01 K/uL (0-0.5); Immature Granulocytes # (auto) 0.13 K/uL (0.00-0.02); Immature Granulocytes % (auto) 0.5 %; Lymphocytes # (auto) 1.22 K/uL (1.2-3.4); Lymphocytes % (auto) 4.7 %; Monocytes # (auto) 2.21 K/uL (0.11-0.59); Monocytes % (auto) 8.5 %; Neutrophils % (auto) 86.3 %; Polychromasia 1+
[2020-06-22] MEDS: AMIODARONE / D5W 360 MG/200 ML BAG IV SCH (01:30)
[2020-06-22] MEDS: fentaNYL citrate 100 MCG/2 ML VIAL IV PRN ×2 (02:12→05:58)
[2020-06-22] MEDS: INSULIN REGULAR 250 UNITS in SODIUM CHLORIDE 0.9% 247.5 ML IV SCH ×2 (02:14→05:32)
[2020-06-22] MEDS: NOREPINEPHRINE BIT INJ 8 MG in DEXTROSE 5% 500 ML IV SCH (03:44)
[2020-06-22 04:19] LABS: iSTAT Art Bld Gas pCO2 Correct 42 mmHg (35-46); iSTAT Art Bld Gas pH Corrected 7.299 (7.35-7.45); iSTAT Arterial Blood Gas HCO3 21 meg/L (19-24); iSTAT Arterial Blood Gas pCO2 45 mmHg (35-46); iSTAT Arterial Blood Gas pH 7.27 (7.35-7.45); iSTAT Arterial Blood Gas pO2 90 mmHg (80-95); iSTAT Arterial Blood Gas pO2 C 80; iSTAT Carbon Dioxide 22 mmol/L (24-31); iSTAT FiO2 50 %; iSTAT Hematocrit 32 % (37-47); iSTAT Hemoglobin 10.9 g/dl (12.0-16.0); iSTAT Potassium 4.6 mmol/L (3.3-5.0); iSTAT Site Art Line; iSTAT Sodium 136 mmol/L (135-144)
[2020-06-22 05:45] LABS: Basophils # (auto) 0.01 K/uL (0-0.2); Hematocrit (blood only) 32.4 % (37-47); Hemoglobin 9.8 g/dL (12.0-16.0); Immature Granulocytes # (auto) 0.07 K/uL (0.00-0.02); Immature Granulocytes % (auto) 0.3 %; Lymphocytes # (auto) 1.16 K/uL (1.2-3.4); Lymphocytes % (auto) 5.3 %; Mean Corpuscular Hemoglobin 25.1 pg (25-34); Mean Corpuscular Hgb Conc 30.2 g/dL (32-36); Mean Corpuscular Volume 83.1 fL (80-100); Mean Platelet Volume 11.5 fL (7.4-10.4); Monocytes # (auto) 1.31 K/uL (0.11-0.59); Neutrophils # (auto) 19.35 K/uL (1.4-6.5); Neutrophils % (auto) 88.4 %; Platelet Count 151 K/uL (130-400); RDW Coefficient of Variation 18.2 % (11.5-14.5); RDW Standard Deviation 55.8 fL (36.4-46.3)
[2020-06-22 06:12] LABS: Partial Thromboplastin Ratio 0.9; Partial Thromboplastin Time 25.4 Seconds (21.0-31.0); Prothrombin Time 10.9 Seconds (9.0-12.0)
[2020-06-22 06:16] LABS: BUN Creatinine Ratio 18.1 (10-20); Creatinine Clr Calc Pharmacy 38.5 ml/min; Est GFR (African American) 31.3; Magnesium 2.4 mg/dl (1.8-2.4); Phosphorus 4.5 mg/dl (2.5-4.9); Potassium 4.1 mmol/L (3.5-5.1)
[2020-06-22 06:46] LABS: Estimated Average Glucose 174 mg/dl; Hemoglobin A1C 7.7 % (4.5-5.6)
--- NOTE | 2020-06-22 07:32 | Critical Care Progress Note ---
Date of Service June 22, 2020 Assessment & Plan (1) Admitted to intensive care unit: -- VDRF Likely secondary to cardiac arrest --> status post cardiac cath which showed chronic occlusion of the RCA --> on hypothermia protocol --> rewarming today Patient had STEMI on route to the ER but no ST elevation appreciated in the hospital. Continue with ventilatory support, Keep RASS -1 Daily sedation holidays and SBT's Chlorhexidine mouthwash --Altered mental status With decerebrate posturing and tonic-clonic seizures Likely anoxic brain injury from cardiac arrest -For tonic-clonic seizures continue with propofol and Ativan as needed --ANNETTE on CKD Decrease in urine output and creatinine worsening, possibly ATN Monitor BUN/creatinine Avoid nephrotoxic medications Strict ins and outs --DKA On insulin drip Continue with insulin drip as per ICU protocol Pharmacy managing the drip. --Epistaxis At the time of presentation status post nasal packing No more active bleeding appreciated Patient was on Xarelto at home. Monitor H&H --Leukocytosis Likely reactive to cardiac arrest Monitor --History of sick sinus syndrome and A. fib On Xarelto at home Currently on hold because of epistaxis when she presented --Prolonged QTC Avoid QT prolonging medication Keep potassium greater than 4, magnesium greater than 2, phosphorus greater than 3 --Poor prognosis --Prophylaxis VTE: IPC's GI: Protonix Lines: Right femoral venous, left arterial femoral, positive Brown Diet: N.p.o. Plan: In/out: +3.1 L, urine output 720 AB.27/45/90 on 60% Patient is still having tonic-clonic seizures. No significant improvement in the mental status while rewarming process is going on. Prognosis is guarded given decerebrate posture as well as tonic-clonic seizures. Family was at bedside. The current condition as well as prognosis was again explained in detail. They do not want any aggressive measures and want the patient to be comfort measures. We will plan to take ET tube out and keep the patient comfortable. I have personally spent 37 minutes of critical care time in the direct management of this patient. This is a life/limb threatening event. This includes time spent evaluating patient, direct bedside care, chart review, placing orders, interpretation of diagnostic studies, discussion with consultants, patient, and family members, as well as other required patient management activities. This time is exclusive of all separately billable procedures, and teaching time and separate from and in addition to any other critical care service time. Please note the above document was generated using voice recognition software. It may contain grammatical, syntax or spelling errors. (2) Cardiac arrest: (3) KELLY (obstructive sleep apnea): (4) COPD, moderate: Admission and Anticipated Discharge Date Admission Date: June 20, 2020 Subjective Patient seen and examined at bedside. Still having tonic-clonic seizure-like episodes. On propofol 30 at the time of examination. On amiodarone drip Patient has been in the process of rewarming. Patient's family was bedside at the time of examination patient. Review of Systems Review of Systems: Unobtainable due to cognitive status and Unobtainable due to endotracheal tube Physical Exam Physical Exam: Constitutional: No acute distress HEENT: PERRLA, positive ETT Respiratory system: Decreased air entry bilaterally, no wheeze, no rhonchi, mild crackles bilateral lower lobes CVS: S1-S2 positive, no murmurs or gallops Abdomen: Soft, nontender, nondistended, positive bowel sounds x4, obese Extremities: +2 pulses bilaterally radialis/ dorsalis pedis, no cyanosis, no edema Neuro: Sedated, positive gag, positive corneal, positive pupillary, GCS 5 Psych: Unable to assess G/U: Positive Brown Results & Data Results & Data ([facility]) Vital Signs (Past 12 Hours) Vital Signs Temp Temp Pulse Resp BP BP Pulse Ox 06/22/20 07:00 36.3 C L 120 H 19 174/81 H 144/55 H 97 06/22/20 06:00 36.0 C L 118 H 10 L 137/103 H 124/47 L 100 06/22/20 05:00 35.5 C L 117 H 22 152/77 H 155/57 H 100 06/22/20 04:00 35.2 C L 109 H 24 147/90 H 157/43 H 100 06/22/20 03:00 34.6 C L 108 H 24 153/91 H 141/52 H 100 06/22/20 02:13 105 H 24 100 06/22/20 02:00 33.7 C L 102 H 24 146/55 H 100 06/22/20 01:00 33.8 C L 99 H 23 157/109 H 152/59 H 100 06/22/20 00:15 33.2 C L 06/22/20 00:07 91 H 22 100 06/22/20 00:00 33.2 C L 92 H 22 144/58 H 100 06/21/20 23:00 33.5 C L 33.4 C L 94 H 20 134/103 H 161/62 H 100 06/21/20 22:05 109 H 24 100 06/21/20 22:00 33.2 C L 33.1 C L 108 H 20 169/64 H 100 06/21/20 21:00 33.3 C L 33.2 C L 99 H 20 157/57 H 100 06/21/20 20:17 10 L 06/21/20 20:00 33.5 C L 33.3 C L 100 H 25 H 169/62 H 100 06/22/20 05:30 06/22/20 05:30 Coding Level of Care Code Critical Care 1st 30-74 mins Diagnoses Admitted to intensive care unit Z78.9 Cardiac arrest I46.9 KELLY (obstructive sleep apnea) G47.33 COPD, moderate J44.9 Time Spent (min) 37
--- NOTE | 2020-06-22 07:41 | XRay Report ---
XR chest 1V portable HISTORY: Respiratory failure. COMPARISON: Chest 06/21/2020. FINDINGS: No pneumothorax. The heart remains borderline enlarged. Nasogastric tube terminates below t he diaphragm. Endotracheal tube terminates approximately 2.2 cm from the duong. There is a left-side d dual-chamber pacemaker. There is mild interstitial pulmonary edema, unchanged. Bibasilar densities persist. IMPRESSION: 1. Satisfactory support line placement. 2. Mild interstitial pulmonary edema and patchy bibasilar densities persist. ACT 112: Negative or not required by law. Electronically signed by: Dash Nolasco M.D. 06/22/2020 7:40 AM
[2020-06-22] MEDS ORDERED: INSULIN ASPART 100 UNITS/ML 3 ML PEN SC SCH (08:00)
--- NOTE | 2020-06-22 09:47 | Death Pronouncement Note ---
Date of Service June 22, 2020 Pronouncement Note Admission Date Admission Date: June 20, 2020 Date and Time of Date of : 06/22/20 Time of : 09:34 PCOD Preliminary cause of : Anoxic encephalopathy Contributing Factors (1) Cardiac arrest: Hospital Course Hospital Course: (1) Cardiac arrest: Status post cardiac arrest in the field, where she was intubated, and remains intubated to be admitted to the intensive care unit. Cardiac catheterization revealed chronic RCA occlusion, without interventions to be done. initiated hypothermic protocol having tonic clonic seizures at times, concerns for anoxic brain injury family requested terminal extubation due to seizure activity and grim prognosis patient with family at bedside at 934am on 06/22/2020 (2) Admitted to intensive care unit: Dr. Borges managed patient, appreciate his assistance (3) Tonic clonic seizures: poor sign, suggests anoxic brain injury/encephalopathy sedation with Propofol, use Ativan PRN continued seizure activity today prior to terminal extubation (4) DKA (diabetic ketoacidosis): insulin infusion likely due to critical illness and stress (5) Metabolic acidosis: due to DKA and lactic acidosis (6) ANNETTE (acute kidney injury): due to cardiac arrest Cr improved with hemodynamic support (7) CKD (chronic kidney disease): baseline range 1.28-1.75. Cr improving from ANNETTE (8) CAD (coronary artery disease): CAD/hypertension/paroxysmal SVT/sick sinus syndrome- Patient had been anticoagulated on Xarelto. HR in the 140-150's (9) Paroxysmal SVT (supraventricular tachycardia): afib with RVR at times use Amiodarone IV short duration (10) SSS (sick sinus syndrome): has pacemaker (11) HTN (hypertension): hypotensive, holding home medications (12) HLD (hyperlipidemia): Holding statin while n.p.o. (13) Uncontrolled type 2 diabetes mellitus, with long-term current use of insulin: Insulin drip with glycemic consult due to DKA Additional Data Confirmation of : no pulse, no respirations, no heart sounds and pupils fixed and dilated Family: at bedside Attending/PCP notified?: Yes Attending physician: Andrew Gonzalez, DO Was code activated?: No Autopsy requested?: No naturalization examiner notified?: No Organ bank notified?: No Advance directives: Yes Coding Level of Care Code None Diagnoses Cardiac arrest I46.9
--- NOTE | 2020-06-22 09:50 | Discharge Summary ---
Date of Service June 22, 2020 Admission HPI Per Admitting Provider The patient is a 64 yo female with PMH including KELLY, GI bleed, Anemia, diabetic vasculopathy, DM, diabetic nephropathy, colitis, SMA stenosis, CKD, Branch retinal artery occlusion, Diabetic toe ulcer, SSS, COPD,Nicotine dependence, LV diastolic dysfunction, RLS, CAD, obesity, CAD, SVT, PAD, HTN and HLD. She was in her usual state of health today until she called family members and then EMS due to not feeling well. She code en route in the ambulance, was intubated, and brought to the ED as a Heart Alert/Code Blue. She did regain ROSC, was taken to the [facility] emergently by Dr. Joseph, was found to have an occluded RCA, no inteventions were performed, and patient was taken to the ICU for admission. In the ICU patient was placed on the Hypothermic Protocol, and orders followed post cath. Principal Diagnosis Cardiac arrest with ROSC in the field, anoxic brain injury with tonic clonic seizures Discharge Exam no pulse, not breathing, no heart sounds, no breath sounds, pupils fixed, unresponsive Discharge Data Allergies Allergy/AdvReac Type Severity Reaction Status Date / Time clopidogrel [From Plavix] AdvReac Mild Verified 05/06/20 12:37 Consultations 06/20/20 22:38 Consult Cardiology Stat ED Decision to Admit Stat 06/20/20 23:42 Consult Case Management - Discharge Planning Routine Consult Loading Machine Operator Helper Routine 06/21/20 01:30 Consult Case Management - Discharge Planning Routine Procedures Performed Operation Date: 06/20/20 22:25 Actual Procedures p Cath, Left with Cors and Vent - Colin Joseph MD s Cineradiography w/Routine Exam - Colin Joseph MD s Ultrasound Vascular Access - Colin Joseph MD s Central Venous Cath Placement - Colin Joseph MD Ordered Studies 06/20/20 22:35 CL Cath Imgs for PACS use only Stat CT abd pelvis IV con only Urgent CT angio chest PE protocol Urgent CT head/brain wo con Urgent 06/21/20 07:48 US point of care ultrasound Urgent Hospital Course (1) Cardiac arrest: Status post cardiac arrest in the field, where she was intubated, and remains intubated to be admitted to the intensive care unit. Cardiac catheterization revealed chronic RCA occlusion, without interventions to be done. initiated hypothermic protocol having tonic clonic seizures at times, concerns for anoxic brain injury family requested terminal extubation due to seizure activity and grim prognosis patient with family at bedside at 934am on 06/22/2020 (2) Admitted to intensive care unit: Dr. Borges managed patient, appreciate his assistance (3) Tonic clonic seizures: poor sign, suggests anoxic brain injury/encephalopathy sedation with Propofol, use Ativan PRN continued seizure activity today prior to terminal extubation (4) DKA (diabetic ketoacidosis): insulin infusion likely due to critical illness and stress (5) Metabolic acidosis: due to DKA and lactic acidosis (6) ANNETTE (acute kidney injury): due to cardiac arrest Cr improved with hemodynamic support (7) CKD (chronic kidney disease): baseline range 1.28-1.75. Cr improving from ANNETTE (8) CAD (coronary artery disease): CAD/hypertension/paroxysmal SVT/sick sinus syndrome- Patient had been anticoagulated on Xarelto. HR in the 140-150's (9) Paroxysmal SVT (supraventricular tachycardia): afib with RVR at times use Amiodarone IV short duration (10) SSS (sick sinus syndrome): has pacemaker (11) HTN (hypertension): hypotensive, holding home medications (12) HLD (hyperlipidemia): Holding statin while n.p.o. (13) Uncontrolled type 2 diabetes mellitus, with long-term current use of insulin: Insulin drip with glycemic consult due to DKA (2) Anoxic brain injury: (3) Tonic clonic seizures: (4) DKA (diabetic ketoacidosis): (5) Metabolic acidosis: (6) ANNETTE (acute kidney injury): (7) CKD (chronic kidney disease): (8) Hypotension: Total Time Total Time Spent Total Time Spent (In Minutes): 20 minutes Total Time Includes: Examination of the Patient, Communication With Other Providers and Other (discussion with family) Discharge Plan Discharge Items Reason For Visit: CARDIAC ARREST Follow-up/Referrals: Glenny Correa CRNP [Primary Care Provider] - Stand-Alone Forms: [facility] [employer] Medications and DC Order Prescriptions: No Action albuterol sulfate [Ventolin HFA] 90 mcg/actuation HFA aerosol inhaler 2 puffs INH Q6H PRN (Reason: shortness of breath or wheezing) Qty: 8 RF: 2 rosuvastatin 40 mg tablet 40 mg PO QAM Qty: 90 RF: 3 Brilinta 90 mg tablet 90 mg PO BID Qty: 180 RF: 3 metoprolol tartrate 100 mg tablet 100 mg PO BID Qty: 180 RF: 3 (DME) FreeStyle Rosales 14 Day Sensor Kit See Rx Instructions .ROUTE .MEDSUPPLY Qty: 2 RF: 11 pregabalin [Lyrica] 75 mg capsule 75 mg PO TID Qty: 90 RF: 3 metformin 1,000 mg tablet 1,000 mg PO BID Qty: 60 RF: 11 duloxetine 60 mg capsule,delayed release(DR/EC) 60 mg PO QAM Qty: 90 RF: 3 diltiazem HCl 240 mg capsule,extended release 24hr 240 mg PO QAM Qty: 90 RF: 3 Tresiba FlexTouch U-100 100 unit/mL (3 mL) insulin pen See Rx Instructions SQ DAILY Qty: 60 RF: 3 magnesium oxide 400 mg (241.3 mg magnesium) tablet 400 mg PO QAM Qty: 90 RF: 3 lorazepam 0.5 mg tablet 0.5 mg PO BID PRN (Reason: Anxiety) Qty: 60 RF: 2 (DME) CPAP Machine Misc See Rx Instructions .MEDSUPPLY Qty: 1 RF: 0 pramipexole 1 mg tablet 1 mg PO BID Qty: 180 RF: 1 ipratropium-albuterol 0.5 mg-3 mg(2.5 mg base)/3 mL solution for nebulization 3 ml INH Q4H PRN (Reason: shortness of breath or wheezing) Qty: 180 RF: 5 nitroglycerin 0.4 mg tablet, sublingual 0.4 mg SL Q5M PRN (Reason: Angina) Qty: 1 RF: 0 (DME) pen needle, diabetic [BD Ultra-Fine Short Pen Needle] 31 gauge x 5/16" needle See Rx Instructions .ROUTE .MEDSUPPLY Qty: 100 RF: 3 Spiriva Respimat 2.5 mcg/actuation mist 2 puffs INH QAM RF: 0 Robitussin Cough-Chest Noé DM 5-100 mg/5 mL Liquid 10 ml PO Q6H PRN (Reason: cough) Qty: 237 RF: 0 cannabidiol 100 mg/mL Solution 100 mg PO Q2H RF: 0 Xarelto 15 mg Tablet 15 mg PO QDD Qty: 30 RF: 0 Krames/Other Patient Handouts: Managing Type 2 Diabetes, Managing Diabetes: The A1C Test Admission Data Admit Date/Time: 06/20/20 23:42 Attending Provider: Andrew Gonzalez Admit Provider: Colin Joseph Primary Care Provider: Glenny Correa Other Providers: Colin Joseph ; Edgar Clarke ; Steve Mckeon Coding Level of Care Code D/C Day Management <30 mins Diagnoses Cardiac arrest I46.9 Anoxic brain injury G93.1 Tonic clonic seizures G40.409 DKA (diabetic ketoacidosis) E11.10 Metabolic acidosis E87.2 ANNETTE (acute kidney injury) N17.9 CKD (chronic kidney disease) N18.9 Hypotension I95.9
[2020-06-22] MEDS ORDERED: SODIUM BICARB 8.4% INJ 50 MEQ/50 ML SYR IV ONE (11:04)
[2020-06-22] MEDS ORDERED: DEXTROSE 5% 100 ML BAG IV ONE (11:04)
[2020-06-22] MEDS ORDERED: SODIUM CHLORIDE 0.9% 10ML FLUSH IV ONE (11:04)
[2020-06-22] MEDS ORDERED: AMIODARONE HCL INJ 50 MG/ML 3 ML VIAL IV ONE (11:04)
[2020-06-22] MEDS ORDERED: MAGNESIUM SULFATE 1GM / D5W BAG IV ONE (11:04)
--- NOTE | 2020-06-22 13:49 | Electrocardiogram Report ---
Test Reason : Blood Pressure : / mmHG Vent. Rate : 087 BPM Atrial Rate : 087 BPM P-R Int : 172 ms QRS Dur : 068 ms QT Int : 426 ms P-R-T Axes : 046 040 044 degrees QTc Int : 512 ms Normal sinus rhythm Prolonged QT Abnormal ECG When compared with ECG of 21-JUN-2020 12:02, No significant change was found Confirmed by Mikal Aguilar ([id number]) on 06/22/2020 1:48:54 PM Referred By: REFERRED SELF Confirmed By:Mikal Aguilar
--- NOTE | 2020-06-22 13:55 | Electrocardiogram Report ---
Test Reason : Blood Pressure : / mmHG Vent. Rate : 101 BPM Atrial Rate : 084 BPM P-R Int : 000 ms QRS Dur : 064 ms QT Int : 366 ms P-R-T Axes : 000 042 076 degrees QTc Int : 474 ms Poor data quality, interpretation may be adversely affected Probable Atrial fibrillation with rapid ventricular response Abnormal ECG When compared with ECG of 21-JUN-2020 16:04, (unconfirmed) Atrial fibrillation has replaced Sinus rhythm Confirmed by Mikal Aguilar ([id number]) on 06/22/2020 1:54:43 PM Referred By: REFERRED SELF Confirmed By:Mikal Aguilar
--- NOTE | 2020-06-22 14:03 | Electrocardiogram Report ---
Test Reason : Blood Pressure : / mmHG Vent. Rate : 094 BPM Atrial Rate : 094 BPM P-R Int : 180 ms QRS Dur : 086 ms QT Int : 402 ms P-R-T Axes : 080 029 063 degrees QTc Int : 502 ms Normal sinus rhythm Poor R wave progression, consider anterior SD vs. lead placement vs. LVH Abnormal ECG When compared with ECG of 21-JUN-2020 20:02, (unconfirmed) Sinus rhythm has replaced Atrial fibrillation Confirmed by Mikal Aguilar ([id number]) on 06/22/2020 2:03:06 PM Referred By: REFERRED SELF Confirmed By:Mikal Aguilar
--- NOTE | 2020-06-22 14:05 | Electrocardiogram Report ---
Test Reason : Blood Pressure : / mmHG Vent. Rate : 105 BPM Atrial Rate : 105 BPM P-R Int : 166 ms QRS Dur : 062 ms QT Int : 370 ms P-R-T Axes : 080 022 063 degrees QTc Int : 489 ms Sinus tachycardia Otherwise normal ECG When compared with ECG of 21-JUN-2020 23:52, (unconfirmed) No significant change was found Confirmed by Mikal Aguilar ([id number]) on 06/22/2020 2:05:12 PM Referred By: REFERRED SELF Confirmed By:Mikal Aguilar
--- NOTE | 2020-07-06 11:54 | Coding Query ---
CODING QUERY To promote full compliance with coding requirements relating to patient care, provider participation is requested in all cases of animal trapper uncertainty. Please assist us with the question(s) below: Coding Question: VDRF was documented in your 06/21 PN, for coding specificity, can you please clarify for me the type of respiratory failure? Thank you so much for your help! Have a great day! ( ) Acute Respiratory Failure with Hypoxia ( ) Acute Respiratory Failure with Hypercapnia ( ) Acute on Chronic Respiratory Failure with Hypoxia ( ) Acute on Chronic Respiratory Failure with Hypercapnia ( ) Chronic Respiratory failure with Hypoxia ( ) Chronic Respiratory Failure with Hypercapnia ( ) Unspecified Respiratory Failure ( x ) Other [(Acute hypoxic hypercapnic respiratory failure) - likely from Cardiac arrest ] Thank you! Lexi Carrizales Principal Diagnosis: "that condition established after study, to be chiefly responsible for occasioning the admission of the patient to the hospital for care." Co-Existing Principal Diagnosis: "when two or more diagnoses equally meet the criteria for principal diagnosis as determined by the circumstances of admission, diagnostic work up, and/or therapy provided, and the Alphabetic Index, Tabular List, or another coding guideline does not provide sequencing direction, any one of the diagnoses may be sequenced first." "When the physician has documented what appears to be a current diagnosis in the body of the record, but has not included the diagnosis in the final diagnostic statement, the physician should be asked whether the diagnosis should be added." ([facility] 2 QTR90. p3-4) BRITTANY
== END 2020-06-22 11:05 | disposition expired | DRG 286 ==
LOC: ED 22:12 → CC 22:35 → 1E 23:42 → SUATTDRO 23:42